=== PATIENT | male | born 1945 | race Caucasian/White ===

== ENCOUNTER 2020-12-24 15:02 | Outpatient (CLI) | payer MEDICARE, SELFPAY ==
--- NOTE | ~2020-12-24 | CT_ITS ---
EXAMINATION:CT lung screening DATE: 12/24/2020 15:18 INDICATION: Personal history of tobacco dependence. TECHNIQUE: Computed tomography (CT) of the chest was performed without intravenous contrast. Automate d exposure control and iterative reconstruction technique were employed. The dose-length product (DLP ) was 148.53 mGy-cm. COMPARISON: Chest CT 04/30/2018 FINDINGS: There is moderate emphysema. There is mild atelectasis and scarring bilaterally. Calcified right lung nodules are consistent with old granulomatous disease. There are multiple stable nodules i n the lungs bilaterally measuring up to 9 mm at the minor fissure. No pleural effusion. The heart siz e is normal. There are coronary artery calcifications. There are calcifications of aortic valve. No p ericardial effusion. Partially visualized is a 10.2 cm cyst in left kidney. Calcifications in the spl een are consistent with old granulomatous disease. There is mild chronic height loss of multiple vert ebral bodies. There is moderate thoracic spondylosis. IMPRESSION: 1. Lung-RADS category 2: Benign appearance or behavior. Continue annual screening with noncontrast lo w-dose chest CT in 12 months. Reviewed, dictated and finalized at location A. IMPRESSION: 1. Lung-RADS category 2: Benign appearance or behavior. Continue annual screeni ng with noncontrast low-dose chest CT in 12 months.
== END 2020-12-24 15:03 | disposition home or self-care (01) ==
LOC: ANHIMG 15:07
PROVIDERS: PCP Internal Medicine; Visit Provider Internal Medicine
DX: Z12.2 Encounter for screening for malignant neoplasm of respiratory organs (principal); Z87.891 Personal history of nicotine dependence
CPT/HCPCS: 71271

== ENCOUNTER 2021-01-14 12:15 | Outpatient (CLI) | payer MEDICARE, SELFPAY ==
--- NOTE | ~2021-01-14 | XR_ITS ---
EXAMINATION: XR hand LT min 3V DATE: 01/14/2021 12:31 INDICATION: Pain at the left second metacarpophalangeal joint TECHNIQUE: Posteroanterior, oblique and lateral views of the left hand were obtained. COMPARISON: None. FINDINGS: Alignment is normal. No fracture. Severe osteoarthritis at the first carpometacarpal joint with likel y degenerative subarticular cystic change at the base of the first metacarpal. There is additional se sofia osteoarthritis at the second metacarpophalangeal joint and moderate osteoarthritis of the first and third metacarpophalangeal, triscaphe and fifth distal interphalangeal joints. Mild osteoarthritis at the wrist, midcarpal and remaining carpal phalangeal and interphalangeal joints. There are juxta articular erosions with thin sclerotic margins and overhanging cortical edges at the radial and dorsa l aspects of the head of the third metacarpal, at the radial aspect of the head of the second metacar pal and at the radial aspect of the lunate with appearance suspicious for gout or other crystalline d eposition disease. Additional lucency suspicious for erosions at the ulnar side of the lunate, the ba se of the third proximal phalanx and at the radial aspect of the base of the second middle phalanx. IMPRESSION: 1. 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 2. Multiple predominantly juxta-articular lucencies as detailed above. The distribution and appearanc e particularly at the head of the third metacarpal are most suspicious for gout although differential would include calcium pyrophosphate deposition (CPPD) disease. Reviewed, dictated and finalized at location B. IMPRESSION: 1. 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 2. Multiple predominantly juxta-articular lucencies as detailed above. The dist ribution and appearance particularly at the head of the third metacarpal are mo st suspicious for gout although differential would include calcium pyrophosphat e deposition (CPPD) disease.
== END 2021-01-14 12:16 | disposition home or self-care (01) ==
LOC: ANHIMG 12:17
PROVIDERS: PCP Internal Medicine; Visit Provider Plastic Surgery
DX: M19.042 Primary osteoarthritis, left hand (principal); M18.12 Unilateral primary osteoarthritis of first carpometacarpal joint, left hand; M19.032 Primary osteoarthritis, left wrist
CPT/HCPCS: 73130

== ENCOUNTER 2024-08-08 18:53 | Inpatient (IN) | payer MEDICARE, SELFPAY ==
[2024-08-08] VITALS (9 sets, daily range): BP systolic 138–165; BP diastolic 64–71; PULSE 80–105; RESP 15–19; TEMP 36.5; O2SAT 99–100
--- NOTE | ~2024-08-08 | CT_ITS ---
Clinical Indication: Evaluate for thoracic or abdominal mass, severe anemia CT Scan of the Chest, Abdomen, and Pelvis with Contrast: Technique: Contiguous sections were acquired throughout the chest, abdomen, and pelvis after intraven ous administration of 100 cc of Omnipaque 350. Dose reduction technique was used on this scan by uti lizing automated exposure control and iterative reconstruction technique. The dose-length product (DL P) was 1188.24 mGy-cm. Comparison: 12/24/2020 Findings: Enlarged inferior left axillary lymph nodes present, measuring 2.6 x 1.3 cm (axial image 45). No othe r gross axillary, mediastinal, or hilar lymphadenopathy. Mediastinal soft tissues are unremarkable, a side from coronary artery calcifications. No aortic aneurysm. There is no evidence of pleural or pericardial effusion. Stable biapical scarring. Stable calcified right upper lobe granuloma. Stable 6 mm left basilar pulmo nary nodule (axial image 118). Mild to moderate emphysema present.. The liver, spleen, pancreas, and adrenal glands are within normal limits. Calcified gallstones are pr esent. Small bilateral nonobstructing renal stones measure up to 2 mm. Large left renal cyst present. There are atherosclerotic calcifications of the aorta. No lymphadenopathy. No bowel obstruction or bowel wall thickening. There is no evidence to suggest acute appendicitis. Urinary bladder is unremarkable. No pelvic mass seen. No ascites. There is mild chronic loss of heigh t of multiple thoracic vertebral bodies, including by T7, T8, T9, and T10. Impression: Single enlarged left axillary lymph node, indeterminate. Consider PET/CT or tissue sampling to furthe r evaluate versus follow-up. Stable 6 mm left basilar pulmonary nodule. Stability since 2000 is compatible with benign nodule. Cholelithiasis. Small bilateral nonobstructing renal stones. Chronic mild thoracic spine compression deformities, as above. Reviewed, dictated and finalized at location . Impression: Single enlarged left axillary lymph node, indeterminate. Consider PET/CT or tis gail sampling to further evaluate versus follow-up. Stable 6 mm left basilar pulmonary nodule. Stability since 2000 is compatible w ith benign nodule. Cholelithiasis. Small bilateral nonobstructing renal stones. Chronic mild thoracic spine compression deformities, as above.
--- NOTE | ~2024-08-08 | XR_ITS ---
CHEST RADIOGRAPH CLINICAL HISTORY: weakness . COMPARISON: None available TECHNIQUE: Single portable view of the chest. FINDINGS The cardiomediastinal silhouette is unremarkable. Coarse interstitial lung markings with a chronic appearance. The remainder the lungs are clear. IMPRESSION: Coarse interstitial change, without focal infiltrate or effusion. Reviewed, dictated and finalized at location A.
--- NOTE | ~2024-08-08 | US_ITS ---
EXAMINATION: US bx lymph node DATE: 08/10/2024 15:12 INDICATION: Enlarged left axillary lymph node TECHNIQUE: The procedure including the risks and benefits was discussed with the patient. Risks discu ssed included bleeding and infection. The patient understood the risks and agreed to proceed. The sk in overlying the left axilla was prepped and draped in usual sterile fashion. Anesthetic was adminis tered with 1% lidocaine subcutaneously. An routine gauge core biopsy needle was advanced under albina nuous ultrasound observation to the lymph node of interest. 5 core biopsy specimens were obtained, 3 placed in RPMI media and 2 in formalin. The needle was removed and the entry site was cleaned and d ressed. Post procedure ultrasound demonstrated no hemorrhage. FINDINGS: Ultrasound images demonstrate biopsy needles advanced into the 2.8 x 1.0 x 1.9 cm left axil constantino lymph node of concern. IMPRESSION: 1. Successful Ultrasound-guided biopsy of a 2.8 x 1.0 x 1.9 cm left axillary lymph node Reviewed, dictated and finalized at location A. IMPRESSION: 1. Successful Ultrasound-guided biopsy of a 2.8 x 1.0 x 1.9 cm left axillary ly mph node
--- NOTE | ~2024-08-08 | CT_ITS ---
CT soft tissue neck w con. Ordering provider: Haylee Dave History: 79 years gentleman presents with a three-day history of bilateral neck pain with difficulty moving it from side to side and up and down. Describes some difficulty swallowing but is currently ma intaining his secretions Comparison: None. Technique: CT soft tissues neck was performed with contrast. . The dose-length product was 528.53 mGy -cm. Findings: LOWER HEAD: The visualized brain parenchyma, optic globes/orbits and mastoids are unremarkable. The visualized paranasal sinuses are well aerated. SALIVARY GLANDS: Symmetric THYROID: Unremarkable SUPRAHYOID DEEP SPACES: Unremarkable. CAROTID ARTERIES: Trace calcified atherosclerotic disease JUGULAR VEINS: Patent. TONSILS: Not enlarged. ORAL CAVITY: Dental appliance.. PHARYNX, LARYNX AND TRACHEA: Patent. No prevertebral soft tissue swelling. SUPERFICIAL SOFT TISSUES: Scattered nonpathologically enlarged or morphologically suspicious lymph no janet within the bilateral cervical chains and supraclavicular region. THORACIC INLET/VISUALIZED UPPER CHEST: Unremarkable SKELETAL: Age appropriate degenerative changes with osteophyte formation, disc space narrowing, facet arthropathy. Heterogeneous appearance of the bone marrow is identified for which a systemic process is suspected. IMPRESSION: No acute findings within the lower head and neck, as detailed above. Reviewed, dictated and finalized at location A.
--- NOTE | 2024-08-08 19:18 | ECG_ITS ---
Test Date: 2024-08-08 20:01:33 Measurements Intervals [place] Rate: 87 P: 252 GA: 126 QRS: -28 QRSD: 114 T: 74 QT: 383 QTc: 462 Interpretive Statements SINUS RHYTHM WITH OCCASIONAL SUPRAVENTRICULAR PREMATURE COMPLEXES No previous ECG available for comparison Electronically Signed On 08-09-2024 16:45:51 CDT by Maged Ray M.D.
--- NOTE | 2024-08-08 19:20 | ED_ITS ---
HPI - Neck Pain/Injury General Chief Complaint: Neck Pain/Injury <Haylee Dave APRN - Last Filed: 08/08/24 19:29> Stated Complaint: neck pain x 3 days <Haylee Dave APRN - Last Filed: 08/08/24 19:29> Time Seen by Provider: 08/08/24 19:10 <Haylee Dave APRN - Last Filed: 08/08/24 19:29> Focused HPI: Patient is a 79-year-old male who presents to the ER with bilateral neck pain that started on Thursday night. He reports his neck is so tight he is having difficulty moving it from side to side and up and down. Patient reports his only history is hypothyroidism for which he takes Synthroid 137 mcg daily. He denies any fevers, signs/symptoms of infection, jaw pain, or headache. Patient does endorse some difficulty with swallowing, but is maintaining his oral secretions and airway. GENERAL: Well-appearing, well-nourished, and in mild distress d/t pain. HEAD: Normocephalic, atraumatic, palpable cervical, submental, and submandibular lymph nodes CHEST: Clear to auscultation. ?No respiratory distress. HEART: Tachycardia, regular rhythm NEURO: ?Alert and oriented x3. Patient screened in triage and initial orders placed.? ?Additional care and disposition to be based upon?diagnostic testing and treatment. <Haylee Dave APRN - Last Filed: 08/08/24 19:29> History of Present Illness HPI Narrative: Patient is a 79-year-old gentleman who presents emergency department chief complaint of neck pain the patient reports that his neck feels tight reports that he also has noticed that he does feels weak. The patient denies chest pain denies shortness of breath denies blood in his stool denies black tarry stool reports he is on the blood thinners <Emile Bonilla MD - Last Filed: 08/09/24 00:41> Related Data Home Medications: Home Medications ?Medication ?Instructions ?Recorded ?Confirmed ?Last Taken ?Type aspirin 81 mg tablet,delayed 81 mg PO DAILY 04/08/19 07/27/24 Unknown History release (Adult Low Dose Aspirin) <Haylee Dave APRN - Last Filed: 08/08/24 19:29> Allergies/Adverse Reactions: Allergies Allergy/AdvReac Type Severity Reaction Status Date / Time Ocotnga-QKP-RfV Reductase AdvReac Intermediate Nausea Verified 07/27/24 11:08 Inhibitor (Lxasfph-Lns-Ebs Reductase Inhibitor) <Haylee Dave APRN - Last Filed: 08/08/24 19:29> Review of Systems 2 Review of Systems: A 10 system review of systems was completed on the patient and is negative except for what is stated in the HPI. Nursing and ancillary documentation was reviewed. <Emile Bonilla MD - Last Filed: 08/09/24 00:41> [facility] Past Medical History Medical History: Medical History BMI 27.0-27.9,adult Hypertension entered incorrectly <Haylee Dave APRN - Last Filed: 08/08/24 19:29> Surgical History Surgical History: Surgical History Status post fusion of wrist <Haylee Dave APRN - Last Filed: 08/08/24 19:29> Family History Family History: Family History Father Cerebrovascular accident Sibling Family history of diabetes mellitus in first degree relative Patient's brother is Mother No problems noted. Other Family history of arthritis <Haylee Dave APRN - Last Filed: 08/08/24 19:29> Social History Social History: Social History Smoking packs per day: 0.3 Smoking cigarettes per day: 6.0 Years smoked: 50 Smoking pack-years: 15.00 Smoking status: Former smoker Tobacco type: cigarettes Second hand tobacco smoke exposure: Yes Alcohol intake: former Alcohol use details: Social Substance use: never Substance use type: does not use Do You Feel Safe in your Home?: Yes Lack of Transportation: No Lack of Food: Never True Current Housing: I Have Housing Concerned About Future Housing: No Difficulty Paying Gas/Electric Bills: No Difficulty Paying for Meds: No Currently Unemployed: No Education: High School Diploma/GED Difficulty w/ Childcare or Family Care: No Living arrangements: alone Occupation/Education: retired Additional occupation/education comments: [employer] Gender identity (if verbalized by the patient): Male <Haylee Dave APRN - Last Filed: 08/08/24 19:29> Exam 2 Narrative: GENERAL: Well-appearing, well-nourished, and in no acute distress. HEAD: Normocephalic, atraumatic. EYES: PERRLA and EOMI. ENT: Nares clear, no rhinorrhea or epistaxis. Mucous membranes moist. NECK: Supple. CHEST: Clear to auscultation. No respiratory distress. HEART: Regular rate and rhythm. No murmur heard. Normal peripheral pulses. ABDOMEN: Soft, nontender, nondistended, normal active bowel sounds. : Guaiac-positive stool EXTREMITIES: Normal range of motion. No edema. SKIN: Warm, dry, no rash. NEURO: No focal deficits. Alert and oriented x3. PSYCH: Normal mood and affect. <Emile Bonilla MD - Last Filed: 08/09/24 00:41> Course Vital Signs Vital signs: Vital Signs Temperature 36.5 C 08/08/24 19:09 Pulse Rate 105 H 08/08/24 19:09 Respiratory Rate 18 08/08/24 19:09 Blood Pressure 138/69 08/08/24 19:09 Pulse Oximetry 100 08/08/24 19:09 Oxygen Delivery Room Air 08/08/24 19:09 Temperature 36.5 C 08/08/24 19:09 Pulse Rate 84 08/08/24 23:19 Respiratory Rate 19 08/08/24 23:19 Blood Pressure 153/71 H 08/08/24 23:19 Pulse Oximetry 100 08/08/24 23:19 Oxygen Delivery Room Air 08/08/24 19:09 <Haylee Dave APRN - Last Filed: 08/08/24 19:29> Vital Signs Temperature 36.5 C 08/08/24 19:09 Pulse Rate 105 H 08/08/24 19:09 Respiratory Rate 18 08/08/24 19:09 Blood Pressure 138/69 08/08/24 19:09 Pulse Oximetry 100 08/08/24 19:09 Oxygen Delivery Room Air 08/08/24 19:09 Temperature 36.5 C 08/08/24 19:09 Pulse Rate 84 08/08/24 23:19 Respiratory Rate 19 08/08/24 23:19 Blood Pressure 153/71 H 08/08/24 23:19 Pulse Oximetry 100 08/08/24 23:19 Oxygen Delivery Room Air 08/08/24 19:09 <Emile Bonilla MD - Last Filed: 08/09/24 00:41> MDM - Neck Pain/Injury Lab Data Result diagrams: 08/08/24 20:12 08/08/24 20:12 <Haylee Dave APRN - Last Filed: 08/08/24 19:29> Labs: Lab Results 08/08/24 08/08/24 Range/Units 20:12 21:36 WBC 11.6 H (4.5-10.0) K/mm3 RBC 3.16 L (4.6-6.20) M/mm3 Hgb 5.9 L* (14.0-18.0) g/dL Hct 21.3 L (42.0-52.0) % MCV 67.4 L (80-100) fl MCH 18.7 L (26-34) pg MCHC 27.7 L (32-36) g/dl RDW 18.4 H (11.5-14.5) % Plt Count 480 H (150-375) k/mm3 MPV 8.7 (7.4-10.4) fl Immature Gran % (Auto) 0.4 (0-0.5) % Neut % (Auto) 80.2 H (45.5-73.1) % Lymph % (Auto) 7.4 L (18.3-44.2) % [place] % (Auto) 11.7 H (2.6-8.5) % Eos % (Auto) 0.0 (0-4.4) % Baso % (Auto) 0.3 (0.2-1.2) % Lymph # (Auto) 0.86 L (0.9-3.2) K/mm3 [place] # (Auto) 1.4 H (0.1-0.6) K/mm3 Eos # (Auto) 0.0 (0-0.3) K/mm3 Baso # (Auto) 0.0 (0.0-0.1) K/mm3 Abs Immat Gran (auto) 0.05 H (0.00-0.031) K/mm3 Absolute Neuts (auto) 9.3 H (1.3-6.7) K/mm3 Absolute Nucleated RBC 0.000 (0.0-0.012) K/mm3 Band Neutrophils % Not Reportable Nucleated RBC % 0.0 (0.0-0.2) % Platelet Estimate Increased (Adequate) Large Platelets Present Hypochromasia 2+ Poikilocytosis 1+ Anisocytosis 2+ Microcytosis 2+ (NORMAL) Target Cells 1+ Ovalocytes 1+ Schistocytes None seen Sodium 133 L (137-145) mmol/L Potassium 3.9 (3.4-5.0) mmol/L Chloride 100 (98-107) mmol/L Carbon Dioxide 22 (22-30) mmol/L Anion Gap 11 (4-12) mmol/L BUN 11 (9-20) mg/dL Creatinine 0.98 (0.7-1.3) mg/dL Estim Creat Clear Calc Not Reportable Estimated GFR > 60 (59 - ) Glucose 128 H (65-110) mg/dL Calcium 9.0 (8.4-10.2) mg/dL Total Bilirubin 0.5 (0.2-1.3) mg/dL AST 20 (17-59) U/L ALT 9 (6-50) U/L Alkaline Phosphatase 115 (38-126) U/L Troponin I < 0.012 (0.000-0.034) ng/mL Total Protein 8.0 (6.3-8.2) g/dL Albumin 4.2 (3.5-5.1) g/dL TSH (Reflex) 0.232 L (0.465-4.68) uIU/mL Free T4 2.12 (0.78-2.19) ng/dL Total T3 0.82 L (0.97-1.69) NG/ML Blood Type O Positive Antibody Screen Negative <Haylee Dave, WOOD CARVING LATHE OPERATOR - Last Filed: 08/08/24 19:29> Lab Results 08/08/24 08/08/24 Range/Units 20:12 21:36 WBC 11.6 H (4.5-10.0) K/mm3 RBC 3.16 L (4.6-6.20) M/mm3 Hgb 5.9 L* (14.0-18.0) g/dL Hct 21.3 L (42.0-52.0) % MCV 67.4 L (80-100) fl MCH 18.7 L (26-34) pg MCHC 27.7 L (32-36) g/dl RDW 18.4 H (11.5-14.5) % Plt Count 480 H (150-375) k/mm3 MPV 8.7 (7.4-10.4) fl Immature Gran % (Auto) 0.4 (0-0.5) % Neut % (Auto) 80.2 H (45.5-73.1) % Lymph % (Auto) 7.4 L (18.3-44.2) % [place] % (Auto) 11.7 H (2.6-8.5) % Eos % (Auto) 0.0 (0-4.4) % Baso % (Auto) 0.3 (0.2-1.2) % Lymph # (Auto) 0.86 L (0.9-3.2) K/mm3 [place] # (Auto) 1.4 H (0.1-0.6) K/mm3 Eos # (Auto) 0.0 (0-0.3) K/mm3 Baso # (Auto) 0.0 (0.0-0.1) K/mm3 Abs Immat Gran (auto) 0.05 H (0.00-0.031) K/mm3 Absolute Neuts (auto) 9.3 H (1.3-6.7) K/mm3 Absolute Nucleated RBC 0.000 (0.0-0.012) K/mm3 Band Neutrophils % Not Reportable Nucleated RBC % 0.0 (0.0-0.2) % Platelet Estimate Increased (Adequate) Large Platelets Present Hypochromasia 2+ Poikilocytosis 1+ Anisocytosis 2+ Microcytosis 2+ (NORMAL) Target Cells 1+ Ovalocytes 1+ Schistocytes None seen Sodium 133 L (137-145) mmol/L Potassium 3.9 (3.4-5.0) mmol/L Chloride 100 (98-107) mmol/L Carbon Dioxide 22 (22-30) mmol/L Anion Gap 11 (4-12) mmol/L BUN 11 (9-20) mg/dL Creatinine 0.98 (0.7-1.3) mg/dL Estim Creat Clear Calc Not Reportable Estimated GFR > 60 (59 - ) Glucose 128 H (65-110) mg/dL Calcium 9.0 (8.4-10.2) mg/dL Total Bilirubin 0.5 (0.2-1.3) mg/dL AST 20 (17-59) U/L ALT 9 (6-50) U/L Alkaline Phosphatase 115 (38-126) U/L Troponin I < 0.012 (0.000-0.034) ng/mL Total Protein 8.0 (6.3-8.2) g/dL Albumin 4.2 (3.5-5.1) g/dL TSH (Reflex) 0.232 L (0.465-4.68) uIU/mL Free T4 2.12 (0.78-2.19) ng/dL Total T3 0.82 L (0.97-1.69) NG/ML Blood Type O Positive Antibody Screen Negative <Emile Bonilla MD - Last Filed: 08/09/24 00:41> Discharge Plan Discharge Clinical Impression: Anemia <Haylee Dave APRN - Last Filed: 08/08/24 19:29> Patient Disposition: Still a Patient <Haylee Dave APRN - Last Filed: 08/08/24 19:29> Condition: Stable <Haylee Dave APRN - Last Filed: 08/08/24 19:29> Patient Language: Jordanian <Haylee Dave APRN - Last Filed: 08/08/24 19:29> Prescriptions: No Action levothyroxine [Synthroid] 137 mcg tablet 137 mcg PO DAILY Qty: 90 2RF aspirin [Adult Low Dose Aspirin] 81 mg tablet,delayed release (DR/EC) 81 mg PO DAILY <Haylee Dave APRN - Last Filed: 08/08/24 19:29> Follow-up/Referrals: Willi Wyatt DO [Primary Care Provider] - <Haylee Dave APRN - Last Filed: 08/08/24 19:29> Time of Disposition: 00:41 <Haylee Dave APRN - Last Filed: 08/08/24 19:29> 00:41 <Emile Bonilla MD - Last Filed: 08/09/24 00:41>
--- OUTSIDE RECORDS SUMMARY | 2024-08-08 19:20 | XMS_ITS | Clinical Summary ---
Author Organization [facility] Address [address] [place] [address] Care Team Providers Care Planer Feeder Name Role Phone Unavailable Primary Care Provider Unavailabl e Source Comments [facility],non-owned Affiliates and Associated Physician Practices is amultiple site organization consisting of ambulatory clinics and hospital sitesin [place], [place], [place] and [place]. This disclosure is being madepursuant to the Care Everywhere program and may not contain all information available regarding this patient. Last updated 18.[facility] Social History Tobacco Use Types Packs/Day Years Used Date Smoking Tobacco: Never Assessed Sex and Gender Information Value Date Recorded Sex Assigned at Not on file Gender Identity Not on file Sexual Orientation Not on file Plan of Treatment Health Maintenance Due Date Last Done Comments DTAP/TDAP/TD VACCINES (1 - Tdap) 02/11/1964 PNEUMOCOCCAL VACCINE 50+ (1 of 1 - PCV) 1995 ZOSTER VACCINE (1 of 2) 1995 Respiratory Syncytial Virus (RSV) Vaccine Pt: or over 60 yrs (1 - 1-dose 75+ series) 02/11/2020 COVID-19 VACCINE ( - 2023-2 5 season) 2024 INFLUENZA VACCINE (#1) 2024 DEPRESSION SCREENING 05/25/2024 HEPATITIS B VACCINE Aged Out No longe r eligible based on patient's age to complete this topic HIB VACCINE Aged Out No longer eligi ble based on patient's age to complete this topic HPV VACCINE Aged Out No longer eligi ble based on patient's age to complete this topic MENINGOCOCCAL (Group B) VACC INE SHARED DECISION-MAKING Aged Out No longer eligibl e based on patient's age to complete this topic MENINGOCOCCAL GROUPS A/C/Y/W VACCINE Aged Out No longer eligible b ased on patient's age to complete this topic
--- OUTSIDE RECORDS SUMMARY | 2024-08-08 19:20 | XMS_ITS | Patient Health Summary ---
Author Organization [facility] Address [address] [place] [address] Care Team Providers Care Aviation Survival Technician Name Role Phone Unavailable Primary Care Provider Unavailabl e Note from [facility],non-owned Affiliates and Associated Physician Practices is amultiple site organization consisting of ambulatory clinics and hospital sitesin [place], [place], [place] and [place]. This disclosure is being madepursuant to the Care Everywhere program and may not contain all information available regarding this patient. Last updated 18.[facility] Social History Tobacco Use Types Packs/Day Years Used Date Smoking Tobacco: Never Assessed Sex and Gender Information Value Date Recorded Sex Assigned at Not on file Gender Identity Not on file Sexual Orientation Not on file Procedures * GROSS + MICRO EXAM(Performed 09/14/1998) Results * GROSS + MICRO EXAM (09/14/1998 3:59 PM CDT) Result CASE NUMBER [id number] Comment: ORDERING PHYSICIAN JONES CHRIS SPECIMEN TYPE Colon Biopsy-ascending Date 09/14/1998 Physician Nazanin Gross Description The specimen is received in 3 formalin-filled containers, each labeled with the patient's name. The first one is additionally labeled sigmoid polyp . It consists of 2, barboza-white, rubbery, irregularly- shaped tissue fragments each of which measures 0.2 x 0.2 x 0.2 cm. The specimen is wrapped in tissue paper and submitted in its entirety in cassette A. The second container is additionally labeled ascending polyp . It consists of 2, barboza-white, rubbery, irregularly-shaped tissue fragments each of which measures 0.2 x 0.2 x 0.2 cm. The specimen is wrapped in tissue paper and submitted in its entirety in cassette B. The third container is additionally labeled rectal polyp . It consists of 2, barboza-white, rubbery, irregularly-shaped tissue fragments each of which measures 0.2 x 0.2 x 0.2 cm. The specimen is wrapped in tissue paper and submitted in its entirety in cassette C. GJ/ lmj Microscopic Exam Sections labeled A reveals a hyperplastic polyp with sawtoothed shaped glands lined by talll columnar mucinous epithelium. There is no evidence of malignancy. Sections labeled B reveals colonic mucosa with adenomatous polyp formation. There are glands that are enlarged, irregular in contour and exhibit nuclear enlargement, stratification, mucin depletion. There is no evidence of malignancy present. Sections labeled C reveals hyperplastic polyp formation. Diagnosis I. Sigmoid colon, biopsy A. Hyperplastic polyp II. Ascending colon, biopsy A. Adenomatous polyp III. Rectum, biopsy A. Hyperplastic polyp Chemical Treatment Plant Technician [facility] [place] Christine Morgan M.D. Snomed. 09/15/1998 1115 <3> CPT code 50510/04226 x3 MISCELLANEOUS SAMPLES / Unknown 09/14/1998 3:59 PM CDT 09/14/1998 3:59 PM CDT Historical Provider LAB - PATHOLOGY/C YTOLOGY ORDERABLES
--- OUTSIDE RECORDS SUMMARY | 2024-08-08 19:20 | XMS_ITS | CONTINUITY OF CARE DOCUMENT ---
Author Name darci bejarano Address Unknown Organization [facility] Address [address] [place] [address] Phone [phone] Care Team Providers Care Labor Contractor Name Role Phone darci bejarano Unavailable Unavailable
--- OUTSIDE RECORDS SUMMARY | 2024-08-08 19:20 | XMS_ITS | Referral Summary ---
Author Organization [facility] Address [address] [place] [address] Care Team Providers Care Forming Process Worker Name Role Phone Unavailable Primary Care Provider Unavailabl e Source Comments [facility],non-owned Affiliates and Associated Physician Practices is amultiple site organization consisting of ambulatory clinics and hospital sitesin [place], [place], [place] and [place]. This disclosure is being madepursuant to the Care Everywhere program and may not contain all information available regarding this patient. Last updated 18.[facility] [employer] Social History Tobacco Use Types Packs/Day Years Used Date Smoking Tobacco: Never Assessed Sex and Gender Information Value Date Recorded Sex Assigned at Not on file Gender Identity Not on file Sexual Orientation Not on file Plan of Treatment Not on file
--- NOTE | 2024-08-08 19:51 | PC.NURSE ---
Pt states he last took tylenol around 1400 today.
[2024-08-08] MEDS: KETOROLAC 30 MG/ML VIAL (*BKC) IM (19:55)
[2024-08-08 20:25] LABS: Basophils Percent Auto 0.3 % (0.2-1.2); Hematocrit 21.3 % (42.0-52.0); Immature Granulocyte Absolute 0.05 K/mm3 (0.00-0.031); Immature Granulocyte Percent A 0.4 % (0-0.5); Lymphocytes Absolute Auto 0.86 K/mm3 (0.9-3.2); Lymphocytes Percent Auto 7.4 % (18.3-44.2); Mean Corpuscular HGB Conc 27.7 g/dl (32-36); Mean Corpuscular Hemoglobin 18.7 pg (26-34); Mean Corpuscular Volume 67.4 fl (80-100); Mean Platelet Volume 8.7 fl (7.4-10.4); Monocytes Absolute Auto 1.4 K/mm3 (0.1-0.6); Monocytes Percent Auto 11.7 % (2.6-8.5); Neutrophils Absolute Auto 9.3 K/mm3 (1.3-6.7); Neutrophils Percent Auto 80.2 % (45.5-73.1); Platelet Count Result 480 k/mm3 (150-375); Red Blood Count 3.16 M/mm3 (4.6-6.20); Red Cell Distribution Width 18.4 % (11.5-14.5); White Blood Count 11.6 K/mm3 (4.5-10.0)
[2024-08-08 20:35] LABS: Hemoglobin 5.9 g/dL (14.0-18.0)
[2024-08-08 20:42] LABS: Alanine Aminotransferase 9 U/L (6-50); Albumin Level 4.2 g/dL (3.5-5.1); Alkaline Phosphatase 115 U/L (38-126); Anion Gap 11 mmol/L (4-12); Aspartate Amino Transferase 20 U/L (17-59); Bilirubin,Total 0.5 mg/dL (0.2-1.3); Blood Urea Nitrogen 11 mg/dL (9-20); Carbon Dioxide 22 mmol/L (22-30); Chloride 100 mmol/L (98-107); Estimated Glomerular Filt Rate > 60; Glucose 128 mg/dL (65-110); Potassium 3.9 mmol/L (3.4-5.0); Sodium 133 mmol/L (137-145)
[2024-08-08 20:49] LABS: Anisocytosis 2+; Hypochromasia 2+; Large Platelets Present; Microcytosis 2+ (NORMAL); Ovalocytes 1+; Platelet Estimate Increased (Adequate); Poikilocytosis 1+; Schistocytes None Seen; Target Cells 1+
[2024-08-08 21:07] LABS: Thyroid Stimulating Hormone Reflex 0.232 uIU/mL (0.465-4.68)
--- OUTSIDE RECORDS SUMMARY | 2024-08-08 21:29 | XMS_ITS | CONTINUITY OF CARE DOCUMENT ---
Author Name darci bejarano Address Unknown Organization [facility] Address [address] [place] [address] Phone [phone] Care Team Providers Care Belt Cleaner Name Role Phone darci bejarano Unavailable Unavailable
--- OUTSIDE RECORDS SUMMARY | 2024-08-08 21:29 | XMS_ITS | Referral Summary ---
Author Organization [facility] Address [address] [place] [address] Care Team Providers Care Cane Packer Name Role Phone Unavailable Primary Care Provider Unavailabl e Source Comments [facility],non-owned Affiliates and Associated Physician Practices is amultiple site organization consisting of ambulatory clinics and hospital sitesin [place], [place], [place] and [place]. This disclosure is being madepursuant to the Care Everywhere program and may not contain all information available regarding this patient. Last updated 18.[facility] [employer] Social History Tobacco Use Types Packs/Day Years Used Date Smoking Tobacco: Never Assessed Sex and Gender Information Value Date Recorded Sex Assigned at Not on file Gender Identity Not on file Sexual Orientation Not on file Plan of Treatment Not on file
--- OUTSIDE RECORDS SUMMARY | 2024-08-08 21:29 | XMS_ITS | Patient Health Summary ---
Author Organization [facility] [email or web address] Address [address] [place] [address] Care Team Providers Care Fast Food Crew Lead Name Role Phone Unavailable Primary Care Provider Unavailabl e Note from [facility] [email or web address],non-owned Affiliates and Associated Physician Practices is amultiple site organization consisting of ambulatory clinics and hospital sitesin [place], [place], [place] and [place]. This disclosure is being madepursuant to the Care Everywhere program and may not contain all information available regarding this patient. Last updated 18.[facility] [email or web address] Social History Tobacco Use Types Packs/Day Years [...] polyp III. Rectum, biopsy A. Hyperplastic polyp Install Technician [facility] [place] Pathologist Christine Morgan M.D. Snomed. 09/15/1998 1115 <3> CPT code 99035/88978 x3 MISCELLANEOUS SAMPLES / Unknown 09/14/1998 3:59 PM CDT 09/14/1998 3:59 PM CDT Historical Provider LAB - PATHOLOGY/C YTOLOGY ORDERABLES
--- OUTSIDE RECORDS SUMMARY | 2024-08-08 21:29 | XMS_ITS | Clinical Summary ---
Author Organization [facility] [employer] Address [address] [place] [address] Care Team Providers Care Boxing And Pressing Supervisor Name Role Phone Unavailable Primary Care Provider Unavailabl e Source Comments [facility],non-owned Affiliates and Associated Physician Practices is amultiple site organization consisting of ambulatory clinics and hospital sitesin [place], [place], [place] and [place]. This disclosure is being madepursuant to the Care Everywhere program and may not contain all information available regarding this patient. Last updated 18.[facility] [employer] Social History Tobacco Use Types Packs/Day Years [...]
[2024-08-08 21:44] LABS: Free T4 Free Thyroxine Reflex 2.12 ng/dL (0.78-2.19)
[2024-08-08 22:26] LABS: Troponin I < 0.012 ng/mL (0.000-0.034)
[2024-08-08 22:37] LABS: Total Triiodothyronine (T3) 0.82 NG/ML (0.97-1.69)
[2024-08-09] VITALS (18 sets, daily range): BP systolic 145–182; BP diastolic 56–72; PULSE 73–97; RESP 11–22; TEMP 36.6–37.3; O2SAT 97–100; BMI 25.8
[2024-08-09] MEDS: SODIUM CHLORIDE 0.9% IV 1,000 ML 125 ML IV CONT (01:09)
[2024-08-09] MEDS: PANTOPRAZOLE SODIUM IV 40 MG VIAL IV PUSH ×2 (01:10→09:28)
[2024-08-09] MEDS: SODIUM CHLORIDE 0.9% IV 250 ML 30 ML IV CONT (02:17)
[2024-08-09] MEDS: TUBING, BLOOD SET 1 EACH XX ×2 (02:17→04:10)
[2024-08-09 03:41] LABS: Add Urine Microscopic? YES; Appearance Urine Clear (Clear); Bacteria Urine None Seen /hpf; Bilirubin Urine Negative (Negative); Blood Urine Negative (Negative); Color Urine Yellow (Yellow); Glucose Urine UA Negative (Negative); Ketones Urine 1+ mg/dL (Negative); Leukocyte Esterase Ur Negative LEU/UL (Negative); Nitrate Urine Negative (Negative); Non Pathogenic Casts 0-2; Protein Urine Trace mg/dL (Negative); RBC Urine 0-2 /hpf (0-2); Squamous Epithelial Cell Urine None Seen /hpf (Few); Urobilinogen Urine 0.2 mg/dL (<2.0); WBC Urine 0-5 /hpf (0-3)
[2024-08-09] MEDS: SODIUM CHLORIDE 0.9% IV 250 ML (04:10)
[2024-08-09 05:05] LABS: Ferritin 6.79 ng/mL (11.1-264)
[2024-08-09 05:11] LABS: Iron 19 ug/dL (49-181); Percent Iron Saturation 4 % (20-50)
--- NOTE | 2024-08-09 06:41 | ADMGEN ---
This patient, Eric Pacheco, was admitted to [facility] Surg Room 322-01. Patient/family oriented to hospital policies and general routines including ID bracelet, bed and alarms, visiting hours, pain management, procedures, bathroom and other care routines, personal items, smoking policy, room service/diet, and visiting hours. Information on how to activate the Rapid Response Team has been discussed. Patient/Family are encouraged to report perceived risks to care and to ask questions if they do not understand what they are told or what they should do.
--- NOTE | 2024-08-09 09:41 | P.CONGI_ITS ---
<Statement entered by Heath Nuñez MD - 08/09/24 15:51> I, Heath Nuñez MD, have provided a substantive portion of the care of this patient and discussed the patient with my Nurse Practitioner. I have reviewed any new relevant radiographic and laboratory results including medications. I agree with her documentation as noted below.?I personally performed the medical decision making and much of the history and exam for this encounter. briefly, here with neck pain and found to have significant anemia that required blood transfusion, he had some weight loss with last colonoscopy 2010, no recent EGD. Also some report of difficulty swallowing. Initially he was reluctant about scopes but now is agreeable, will schedule for tomorrow Assessment and Plan Assessment and plan (1) JEZ (iron deficiency anemia): Qualifiers: Iron deficiency anemia type: chronic blood loss Qualified Code(s): D50.0 - Iron deficiency anemia secondary to blood loss (chronic) < Sujata Campos APRN - Last Filed: 08/09/24 16:07> Code(s): D50.9 - Iron deficiency anemia, unspecified <Sujata Campos APRN - Last Filed: 08/09/24 16:07> Status: Acute <Sujata Campos APRN - Last Filed: 08/09/24 16:07> (2) Weight loss: Code(s): R63.4 - Abnormal weight loss <Sujata Campos APRN - Last Filed: 08/09/24 16:07> Status: Acute <Sujata Campos APRN - Last Filed: 08/09/24 16:07> Assessment and Plan: 1. Iron deficiency anemia/weight loss: Last colonoscopy 11/04/2010 at which time he was noted to have internal and external hemorrhoids, diverticulosis and hyperplastic polyps. Family Hx negative for CRC or IBD. He admits to a few episodes of painless trace rectal bleeding after BM's between March and April but denies any other episodes. He is having regular BM's normally every 1-2 days that are formed and non urgent but he has rare episodes of constipation that responds well to OTC laxative. He admits to a 10 lb weight loss since March but admits to a poor diet because it's just him and his dog . On admission Hgb <6, Hct 21, MCV 67 and platelets 480. Iron 19, TIBC 471, iron sat 4% and ferritin 6.79. He denies any signs of active GI bleeding. Assume that his blood counts have been slowly going down given that his only complaint is neck pain. Etiology of anemia may be multifactorial given normal TIBC. No recent GI imaging available * We discussed endoscopic evaluation with colonoscopy +/- EGD but patient kindly declines any further intervention at this time. He is aware that his blood counts were critically low. He has received 2 units PRBC's. Patient is aware that if his H/H does not stabilize after transfusion or if he starts having active bleeding we would have to reconsider scopes at that time. * Primary care team to continue monitoring H/H and transfuse as needed to keep Hgb > 7 * IV iron replacement * Additional anemia labs ordered along with CRP * May consider abdominal imaging if workup is inconclusive * Continue PPI * Care with NSAID's, aspirin or anticoags * monitor closely for signs of GI bleeding Thank you very much for allowing me to share in the care of this very nice patient. This report may have been done utilizing a voice recognition system. Attempts have been made to correct errors. However, there may be uncorrected grammatical, spelling, and recognition errors present. <Sujata Campos APRN - Last Filed: 08/09/24 16:07> GI Consult Note Consult date/time: 08/09/24 09:41 <Sujata Campos APRN - Last Filed: 08/09/24 16:07> Reason for consult: Anemia <Sujata Campos APRN - Last Filed: 08/09/24 16:07> HPI: This is a 79 old male with past medical surgical history of hypothyroidism but otherwise unremarkable medical surgical history. Patient presented to the emergency room 08/08/2024 with complaints of neck pain and was admitted for anemia. GI has been consulted for anemia. Patient states that he started having neck pain Tylor night. He states that he has lost 10 lbs since March. He is having regular BM's normally every 1-2 days and when he has occasional constipation he uses OTC laxatives with good response. He had a few episodes of trace rectal bleeding after BM's in March- April timeframe that has not occurred again. Denies abdominal pain, nausea, vomiting, bloating, odynophagia, dysphagia, reflux, regurgitation, early satiety, weight loss, appetite loss, diarrhea, or melena. He is on aspirin 81 mg daily, denies frequent NSAID use or anticoag use. He is a non drinker, non smoker, and denies marijuana use. Family Hx negative for CRC or IBD. ENDOSCOPY HISTORY: EGD: Patient has never had an EGD COLONOSCOPY: 11/04/[address] Back for personal Hx of colon polyps Findings: Stain ultrasound/external hemorrhoids Internal hemorrhoids Mild sigmoid diverticulosis 5-6 mm sessile hyperplastic appearing polyp in the mid to distal transverse colon removed with cold polyp forceps Bx results: Transverse colon polyp: Hyperplastic polyp LABS AND STOOL STUDIES: Labs 08/08/2024: Sodium 133, potassium 3.9, BUN 11, creatinine 0.98, GFR >60 WBC 12, Hgb 6, Hct 21, MCV 67, platelets 480 Total bilirubin 0.5, AST 20, ALT 9, Alkaline Phos 115, albumin 4.2 Total iron 19, TIBC 471, iron sat 4%, ferritin 6.79 Calcium 9.0, TSH 0.232, T4 2.12 and T3 0.82 IMAGING: CT soft tissue neck 08/08/2024: IMPRESSION: No acute findings within the lower head and neck, as detailed above. <Sujata Campos APRN - Last Filed: 08/09/24 16:07> Review of Systems 2 Constitutional: Constitutional: Reports as per HPI, Denies fatigue and Denies weakness <Sujata Campos APRN - Last Filed: 08/09/24 16:07> ENT: Reports as per HPI <Sujata Campos APRN - Last Filed: 08/09/24 16:07> Cardiovascular: Cardiovascular: Reports as per HPI, Denies chest pain and Denies dyspnea <Sujata Campos APRN - Last Filed: 08/09/24 16:07> Respiratory: Respiratory: Denies cough and Denies dyspnea <Sujatabatool Campos Last Filed: 08/09/24 16:07> Gastrointestinal: Gastrointestinal: Reports as per HPI <Sujatabatool Campos APR Last Filed: 08/09/24 16:07> Musculoskeletal: Musculoskeletal: Reports as per HPI and Reports neck pain <Sujatabatool Campos [employer] JELLY Last Filed: 08/09/24 16:07> Comments: neck pain and decrease neck ROM since Thursday <Sujatabatool Campos Last Filed: 08/09/24 16:07> Integumentary/Breasts: Skin/Breast: Reports as per HPI <Sujata Campos Last Filed: 08/09/24 16:07> Psychiatric: Psychiatric: Reports as per HPI <Sujata Campos Last Filed: 08/09/24 16:07> Endocrine: Endocrine: Reports no additional endocrine complaints <Sujata Campos APR Last Filed: 08/09/24 16:07> Hematologic/Lymphatic: Hematologic/Lymphatic: Reports no additional hematologic/lymphatic complaints <Sujatabatool Campos [employer] JELLY Last Filed: 08/09/24 16:07> PMF Past Medical History Medical History: Medical History BMI 27.0-27.9,adult Hypertension entered incorrectly <Sujatabatool Campos Last Filed: 08/09/24 16:07> Surgical History Surgical History: Surgical History Status post fusion of wrist <Sujatabatool Campos Last Filed: 08/09/24 16:07> Family History Family History: Family History Father Cerebrovascular accident Sibling Family history of diabetes mellitus in first degree relative Patient's brother is Mother No problems noted. Other Family history of arthritis <Sujata Campos APR Last Filed: 08/09/24 16:07> Social History Social History: Social History Smoking packs per day: 1 Smoking cigarettes per day: 20.0 Years smoked: 50 Smoking pack-years: 50.00 Smoking status: Former smoker Tobacco type: cigarettes Second hand tobacco smoke exposure: Yes Alcohol intake: current Alcohol use details: Social Substance use: never Substance use type: does not use Do You Feel Safe in your Home?: Yes Lack of Transportation: No Lack of Food: Never True Current Housing: I Have Housing Concerned About Future Housing: No Difficulty Paying Gas/Electric Bills: No Difficulty Paying for Meds: No Currently Unemployed: No Education: High School Diploma/GED Difficulty w/ Childcare or Family Care: No Living arrangements: alone Occupation/Education: retired Additional occupation/education comments: [employer] Gender identity (if verbalized by the patient): Male Spiritual care concerns: No <Sujata Campos APRN - Last Filed: 08/09/24 16:07> Meds Home Medications and Allergies Home medications: Home Medications ?Medication ?Instructions ?Recorded ?Confirmed ?Type aspirin 81 mg tablet,delayed 81 mg PO DAILY 04/08/19 08/09/24 History release (Adult Low Dose Aspirin) levothyroxine 137 mcg tablet 137 mcg PO DAILY #90 tabs 07/27/24 08/09/24 Rx (Synthroid) <Sujata Campos APRN - Last Filed: 08/09/24 16:07> Allergies/Adverse reactions: Allergies Allergy/AdvReac Type Severity Reaction Status Date / Time [id number] Reductase AdvReac Intermediate Nausea Verified 07/27/24 11:08 Inhibitor (Mbrovpc-Bns-Enf Reductase Inhibitor) <Sujata Campos APRN - Last Filed: 08/09/24 16:07> Vital Signs Vital Signs - 24 hr 08/08/24 19:09 08/08/24 20:51 08/08/24 21:09 Temperature 97.7 F Pulse Rate 105 H 86 82 Respiratory Rate 18 18 19 Blood Pressure 138/69 164/65 H Pulse Oximetry 100 100 99 Oxygen Delivery Room Air 08/08/24 21:10 08/08/24 21:31 08/08/24 21:56 Temperature Pulse Rate 80 84 93 Respiratory Rate 17 18 15 Blood Pressure 157/66 H 165/64 H Pulse Oximetry 100 100 100 Oxygen Delivery 08/08/24 22:01 08/08/24 22:31 08/08/24 23:19 Temperature Pulse Rate 88 82 84 Respiratory Rate 16 15 19 Blood Pressure 161/66 H 164/67 H 153/71 H Pulse Oximetry 99 100 100 Oxygen Delivery 08/09/24 01:17 08/09/24 02:08 08/09/24 02:26 Temperature 99 F 98.7 F Pulse Rate 89 92 97 Respiratory Rate 16 22 H 21 H Blood Pressure 161/70 H 158/72 H 166/69 H Pulse Oximetry 99 99 99 Oxygen Delivery 08/09/24 03:01 08/09/24 03:54 08/09/24 04:17 Temperature 98.1 F 98.9 F Pulse Rate 87 84 91 Respiratory Rate 22 H 11 L 20 Blood Pressure 166/69 H 182/72 H 182/71 H Pulse Oximetry 97 98 100 Oxygen Delivery 08/09/24 05:17 08/09/24 05:22 08/09/24 06:15 Temperature 98.6 F Pulse Rate 85 85 83 Respiratory Rate 18 22 H Blood Pressure 175/72 H 145/66 H Pulse Oximetry 100 100 Oxygen Delivery 08/09/24 06:17 08/09/24 06:19 08/09/24 09:22 Temperature 98.8 F Pulse Rate 85 91 Respiratory Rate 22 H 18 Blood Pressure 145/66 H 175/67 H Pulse Oximetry 100 100 98 Oxygen Delivery Room Air <Sujata Campos APRN - Last Filed: 08/09/24 16:07> Exam 2 Const: General: cooperative, healthy appearing, no acute distress, well developed and uncomfortable (neck pain) <Sujata Campos APRN - Last Filed: 08/09/24 16:07> Orientation/consciousness: oriented to person, oriented to place, oriented to time and patient oriented x3 <Sujata Campos APRN - Last Filed: 08/09/24 16:07> HENMT: Head: normal to inspection, normocephalic and atraumatic <Sujata Campos APRN - Last Filed: 08/09/24 16:07> Mouth: Yes Normal oral and palatal mucosa present and Yes moist mucous membranes <Sujata FongMadyson Mirastephanie [employer] JELLY - Last Filed: 08/09/24 16:07> Eyes: General: appearance normal, both eyes and all related structures < Sujata FongMadyson Mirastephanie [employer] - Last Filed: 08/09/24 16:07> Conjunctivae: conjunctivae normal <Sujata FongMadyson Mirastephanie [facility] Last Filed: 08/09/24 16:07> Sclera: sclerae normal <Sujata FongMadyson Mirastephanie [facility] Last Filed: 08/09/24 16:07> Pupils: Equal, round and reactive pupils present <Sujata FongMadyson Mirastephanie [facility] Last Filed: 08/09/24 16:07> Neck: Neck: normal visual inspection <Sujata FongMadyson Mirastephanie [facility] Last Filed: 08/09/24 16:07> Chest: Chest palpation & inspection: normal inspection of the chest < Sujata Yoshi Mirastephanie [employer] - Last Filed: 08/09/24 16:07> Resp: Effort & Inspection: normal respiratory effort and able to speak in complete sentences <Sujata FongMadyson Mirastephanie [facility] Last Filed: 08/09/24 16:07> Auscultation: clear to auscultation bilaterally <Sujata FongMadyson Mirastephanie [employer] Last Filed: 08/09/24 16:07> Cardio: Jugular venous distension: no JVD <Sujata FongMadyson Mirastephanie [facility] Last Filed: 08/09/24 16:07> Rate: regular rate <Sujata FongMadyson Mirastephanie [employer] - Last Filed: 08/09/24 16:07> Rhythm: regular rhythm <Sujata FongMadyson Mirastephanie [facility] Last Filed: 08/09/24 16:07> Heart sounds: S1 normal heart sound present and S2 normal heart sound present <Sujata Yoshi Campos [employer] - Last Filed: 08/09/24 16:07> GI: Inspection: normal to inspection <Sujata Yoshi Campos [employer] - Last Filed: 08/09/24 16:07> GI Palp: Yes Soft to palpation and Yes No hepatosplenomegaly present <Sujata Yoshi Campos [employer] - Last Filed: 08/09/24 16:07> Auscultation: normal bowel sounds <Sujata MeyersMITCH brownN - Last Filed: 08/09/24 16:07> Rectal Exam: deferred <Sujata Meyersstephanie [employer] - Last Filed: 08/09/24 16:07> Skin: General skin exam: normal color and no rashes or lesions noted < Sujata Meyersstephanie [employer] - Last Filed: 08/09/24 16:07> Neuro: General: oriented to person, oriented to place, oriented to time and patient oriented x3 <Sujata Meyersstephanie [employer] - Last Filed: 08/09/24 16:07> Cranial nerves: Yes Equal, round and reactive pupils present <Sujata Meyersstephanie [employer] - Last Filed: 08/09/24 16:07> Speech: normal speech <Sujata Meyersstephanie [employer]LLY - Last Filed: 08/09/24 16:07> Extrem: General: normal to inspection and no clubbing, cyanosis or edema < Sujata Meyersstephanie [employer] - Last Filed: 08/09/24 16:07> Psych: Appearance: grossly normal and well kempt <Sujata FongMadyson Campos APRN - Last Filed: 08/09/24 16:07> Affect: normal affect <Sujata Meyersstephanie [employer] - Last Filed: 08/09/24 16:07> Results Labs CBC & Chem 7: 08/08/24 20:12 08/08/24 20:12 <Sujata MeyersMITCH brownN - Last Filed: 08/09/24 16:07> Labs: Short CBC 08/08/24 Range/Units 20:12 WBC 11.6 H (4.5-10.0) K/mm3 Hgb 5.9 L* (14.0-18.0) g/dL Hct 21.3 L (42.0-52.0) % Plt Count 480 H (150-375) k/mm3 BMP 08/08/24 20:12 Sodium 133 L Potassium 3.9 Chloride 100 Carbon Dioxide 22 BUN 11 Creatinine 0.98 Glucose 128 H Calcium 9.0 Cardiac Enzymes 08/08/24 Range/Units 21:36 Troponin I < 0.012 (0.000-0.034) ng/mL Liver Function 08/08/24 Range/Units 20:12 Total Bilirubin 0.5 (0.2-1.3) mg/dL AST 20 (17-59) U/L ALT 9 (6-50) U/L Alkaline Phosphatase 115 (38-126) U/L Albumin 4.2 (3.5-5.1) g/dL Urine 08/09/24 Range/Units 03:29 Urine Color Yellow (Yellow) Urine Appearance Clear (Clear) Urine pH 8.0 (5.0-9.0) Ur Specific [place] 1.040 H (1.001-1.035) Urine Protein Trace (Negative) mg/dL Urine Glucose (UA) Negative (Negative) mg/dL <Sujata Campos, [employer] T[employer] JELLY - Last Filed: 08/09/24 16:07>
[2024-08-09] MEDS: IRON SUCROSE COMPLEX 400 MG in SODIUM CHLORIDE 0.9% IV 250 ML 108 MG IVPB (10:03)
[2024-08-09] MEDS: LIDOCAINE 5% PATCH 2 PATCH TRANSDERM (10:03)
[2024-08-09] MEDS: ACETAMINOPHEN 325 MG TABLET 650 MG PO ×2 (10:03→16:39)
[2024-08-09 13:02] LABS: Immature Reticulocyte Fraction 18.9 % (3.0-15.9); Reticulocyte Hemoglobin Conten 19.4 pg (28.2-36.6); Reticulocyte Percent 1.51 % (0.7-4.3); Reticulocytes Absolute 0.05 10^6/uL (0.02-0.10)
--- NOTE | 2024-08-09 13:45 | PM.IMHP ---
H&P: HPI History of Present Illness Date/Time: 08/09/24 13:45 Chief Complaint: neck pain Narrative: 79-year-old male with past medical history of hypothyroidism presented to the ER with neck pain. Patient reported he has been having neck pain for the past 2 weeks, also known noted painful swallowing. Otherwise denies any chest pain no shortness of breadth no vomiting abdominal pain diarrhea dysuria no focal symptoms. No blood in stool or black stools no fever. ER evaluation notable for temperature 98.8?, pulse 1, respiratory rate 18, blood pressure 175/67, saturating 90% on room air. CEA elevated at 3.2. CT soft neck are remarkable. Chest x-ray no acute findings. GI was consulted and patient received 2 units of blood prior to admission. Review of Systems Review of Systems: All other systems reviewed and negative except as noted in the HPI above. [facility] Past Medical History Medical History BMI 27.0-27.9,adult Hypertension entered incorrectly Surgical History Surgical History Status post fusion of wrist Family History Family History Father Cerebrovascular accident Sibling Family history of diabetes mellitus in first degree relative Patient's brother is Mother No problems noted. Other Family history of arthritis Social History Social History Smoking packs per day: 1 Smoking cigarettes per day: 20.0 Years smoked: 50 Smoking pack-years: 50.00 Smoking status: Former smoker Tobacco type: cigarettes Second hand tobacco smoke exposure: Yes Alcohol intake: current Alcohol use details: Social Substance use: never Substance use type: does not use Do You Feel Safe in your Home?: Yes Lack of Transportation: No Lack of Food: Never True Current Housing: I Have Housing Concerned About Future Housing: No Difficulty Paying Gas/Electric Bills: No Difficulty Paying for Meds: No Currently Unemployed: No Education: High School Diploma/GED Difficulty w/ Childcare or Family Care: No Living arrangements: alone Occupation/Education: retired Additional occupation/education comments: [employer] Gender identity (if verbalized by the patient): Male Spiritual care concerns: No Meds Home Medications and Allergies Home Medications ?Medication ?Instructions ?Recorded ?Confirmed ?Type aspirin 81 mg tablet,delayed 81 mg PO DAILY 04/08/19 08/09/24 History release (Adult Low Dose Aspirin) levothyroxine 137 mcg tablet 137 mcg PO DAILY #90 tabs 07/27/24 08/09/24 Rx (Synthroid) Allergies Allergy/AdvReac Type Severity Reaction Status Date / Time Kmfizfl-UIM-KzN Reductase AdvReac Intermediate Nausea Verified 07/27/24 11:08 Inhibitor (Ibtmfmi-Pow-Fbl Reductase Inhibitor) Vital Signs Vital Signs - 24 hr 08/08/24 19:09 08/08/24 20:51 08/08/24 21:09 Temperature 97.7 F Pulse Rate 105 H 86 82 Respiratory Rate 18 18 19 Blood Pressure 138/69 164/65 H Pulse Oximetry 100 100 99 Oxygen Delivery Room Air 08/08/24 21:10 08/08/24 21:31 08/08/24 21:56 Temperature Pulse Rate 80 84 93 Respiratory Rate 17 18 15 Blood Pressure 157/66 H 165/64 H Pulse Oximetry 100 100 100 Oxygen Delivery 08/08/24 22:01 08/08/24 22:31 08/08/24 23:19 Temperature Pulse Rate 88 82 84 Respiratory Rate 16 15 19 Blood Pressure 161/66 H 164/67 H 153/71 H Pulse Oximetry 99 100 100 Oxygen Delivery 08/09/24 01:17 08/09/24 02:08 08/09/24 02:26 Temperature 99 F 98.7 F Pulse Rate 89 92 97 Respiratory Rate 16 22 H 21 H Blood Pressure 161/70 H 158/72 H 166/69 H Pulse Oximetry 99 99 99 Oxygen Delivery 08/09/24 03:01 08/09/24 03:54 08/09/24 04:17 Temperature 98.1 F 98.9 F Pulse Rate 87 84 91 Respiratory Rate 22 H 11 L 20 Blood Pressure 166/69 H 182/72 H 182/71 H Pulse Oximetry 97 98 100 Oxygen Delivery 08/09/24 05:17 08/09/24 05:22 08/09/24 06:15 Temperature 98.6 F Pulse Rate 85 85 83 Respiratory Rate 18 22 H Blood Pressure 175/72 H 145/66 H Pulse Oximetry 100 100 Oxygen Delivery 08/09/24 06:17 08/09/24 06:19 08/09/24 09:22 Temperature 98.8 F Pulse Rate 85 91 Respiratory Rate 22 H 18 Blood Pressure 145/66 H 175/67 H Pulse Oximetry 100 100 98 Oxygen Delivery Room Air Exam Narrative: General: alert and comfortable Eyes: EOMI, PERRLA ENT External ears normal, Neck is supple, no masses, Respiratory systems: Clear to auscultation Cardiovascular S1, S2, normal rhythm, no murmur, rub, or gallop; no thrill or palpable murmurs on palpation. Gastrointestinal: soft, non-tender, and non-distended abdomen with no masses; BS present Skin: no rash, lesions, ulcerations, subcutaneous nodules or induration Musculoskeletal: no abnormality and no tenderness, normal ROM Neurologic: Alert and oriented x3, non focal Mental Status Exam: normal affect H&P: Results Labs Labs: Short CBC 08/08/24 Range/Units 20:12 WBC 11.6 H (4.5-10.0) K/mm3 Hgb 5.9 L* (14.0-18.0) g/dL Hct 21.3 L (42.0-52.0) % Plt Count 480 H (150-375) k/mm3 BMP 08/08/24 20:12 Sodium 133 L Potassium 3.9 Chloride 100 Carbon Dioxide 22 BUN 11 Creatinine 0.98 Glucose 128 H Calcium 9.0 Cardiac Enzymes 08/08/24 Range/Units 21:36 Troponin I < 0.012 (0.000-0.034) ng/mL Liver Function 08/08/24 Range/Units 20:12 Total Bilirubin 0.5 (0.2-1.3) mg/dL AST 20 (17-59) U/L ALT 9 (6-50) U/L Alkaline Phosphatase 115 (38-126) U/L Albumin 4.2 (3.5-5.1) g/dL Urine 08/09/24 Range/Units 03:29 Urine Color Yellow (Yellow) Urine Appearance Clear (Clear) Urine pH 8.0 (5.0-9.0) Ur Specific [place] 1.040 H (1.001-1.035) Urine Protein Trace (Negative) mg/dL Urine Glucose (UA) Negative (Negative) mg/dL Assessment and Plan Assessment and plan (1) Anemia: Code(s): D64.9 - Anemia, unspecified Status: Acute (2) JEZ (iron deficiency anemia): Qualifiers: Iron deficiency anemia type: chronic blood loss Qualified Code(s): D50.0 - Iron deficiency anemia secondary to blood loss (chronic) Code(s): D50.9 - Iron deficiency anemia, unspecified Status: Acute Plan Neck pain with odynophagia No pain on palpation. CT soft tissue neck unremarkable. Continue p.r.n. pain medication. GI consulted Severe anemia rule out GI mass vs bleed Patient denies any melena stool no blood in stool and no abdominal tenderness on palpation Given elevated carcinoembryonic antigen CT abdomen pelvis and chest ordered. Hemoglobin is 5.9 s/p 2 units PRBC. Repeat hemoglobin pending. Monitor H&H. GI consulted Iron deficiency Ferritin 6.7, and saturation is for Rule out GI malignancy On IV iron 400/1000. Monitor Hypothyroidism Continue home medications. DVT prophylaxis SCDs, pending GI bleed rule out. Full code Surrogate decision maker is geronimo Pacheco Hospitalist MIPS Advance Care Plan I have confirmed that the patient's Advanced Care Plan is present, code status is documented, or surrogate decision maker is listed in patient medical record.: Yes Medication Reconciliation I have utilized all available resources to obtain, update and review the patients current medications (includes all prescriptions, OTC, herbals, cannabis, and nutritional supplements).: Yes
[2024-08-09 13:50] LABS: Carcinoembryonic Antigen 3.2 ng/mL (0.0-3.0)
[2024-08-09 14:26] LABS: Folic Acid 10.9 ng/mL (2.76->20)
[2024-08-09] MEDS: AMOXICILLIN/CLAVULANATE K 500-125 MG TAB 1 TABLET PO ×2 (14:54→20:52)
[2024-08-09] MEDS: polyethylene glycoL 3350 238 GM BOTTLE PO (16:40)
[2024-08-09] MEDS: BISACODYL 5 MG TABLET EC 20 MG PO (18:17)
[2024-08-10] VITALS (13 sets, daily range): BP systolic 112–139; BP diastolic 41–63; PULSE 70–91; RESP 16–20; TEMP 36.4–37.5; O2SAT 76–100
[2024-08-10] MEDS: ACETAMINOPHEN 325 MG TABLET 650 MG PO ×3 (00:38→11:44)
[2024-08-10] MEDS: MAGNESIUM CITRATE 300 ML BTL PO (02:16)
[2024-08-10] MEDS: LEVOTHYROXINE SODIUM 112 MCG TABLET PO (05:42)
[2024-08-10] MEDS: AMOXICILLIN/CLAVULANATE K 500-125 MG TAB 1 TABLET PO ×3 (05:42→22:02)
[2024-08-10] MEDS: LEVOTHYROXINE SODIUM 25 MCG TABLET PO (05:42)
[2024-08-10 07:51] LABS: Basophils Absolute Auto 0.1 K/mm3 (0.0-0.1); Basophils Percent Auto 0.2 % (0.2-1.2); Hematocrit 24.3 % (42.0-52.0); Hemoglobin 7.2 g/dL (14.0-18.0); Immature Granulocyte Absolute 0.74 K/mm3 (0.00-0.031); Immature Granulocyte Percent A 3.2 % (0-0.5); Lymphocytes Absolute Auto 0.78 K/mm3 (0.9-3.2); Lymphocytes Percent Auto 3.3 % (18.3-44.2); Mean Corpuscular HGB Conc 29.6 g/dl (32-36); Mean Corpuscular Hemoglobin 20.8 pg (26-34); Mean Corpuscular Volume 70.2 fl (80-100); Mean Platelet Volume 8.8 fl (7.4-10.4); Monocytes Absolute Auto 2.3 K/mm3 (0.1-0.6); Neutrophils Absolute Auto 19.4 K/mm3 (1.3-6.7); Neutrophils Percent Auto 83.3 % (45.5-73.1); Platelet Count Result 413 k/mm3 (150-375); Red Blood Count 3.46 M/mm3 (4.6-6.20); Red Cell Distribution Width 20.1 % (11.5-14.5); White Blood Count 23.4 K/mm3 (4.5-10.0)
[2024-08-10 08:11] LABS: Anisocytosis 1+; Hypochromasia 1+; Platelet Estimate Slightly Increased (Adequate); Schistocytes None Seen
[2024-08-10 08:20] LABS: Alanine Aminotransferase 10 U/L (6-50); Albumin Level 3.4 g/dL (3.5-5.1); Alkaline Phosphatase 88 U/L (38-126); Anion Gap 7 mmol/L (4-12); Aspartate Amino Transferase 21 U/L (17-59); Bilirubin,Total 0.6 mg/dL (0.2-1.3); Blood Urea Nitrogen 11 mg/dL (9-20); Calcium 8.6 mg/dL (8.4-10.2); Carbon Dioxide 23 mmol/L (22-30); Chloride 101 mmol/L (98-107); Estimated CRCL calculation 67 ml/min; Estimated Glomerular Filt Rate > 60; Glucose 132 mg/dL (65-110); Potassium 3.7 mmol/L (3.4-5.0); Sodium 131 mmol/L (137-145)
--- NOTE | 2024-08-10 09:31 | PC.NURSE ---
to GI lab via wheelchair
[2024-08-10] MEDS: LACTATED RINGERS 1,000 ML 150 ML IV CONT (09:52)
--- NOTE | 2024-08-10 09:57 | WPDANESEPPF ---
Anes - Initial Pre Proc Eval Procedure: Operation Date: 08/10/24 14:30 Proposed Procedures p Esophagogastroduodenoscopy & Colonoscopy - Heath Nuñez MD Date/Time: 08/10/24 09:57 Surgeon: Kami Sy DO Pre Op Diagnosis: Anemia, Neck pain Patient Data Age: 79 Gender: M Height: 1.83 m Weight: 86.5 kg Last Vital Signs Temp 98.2 F 08/10/24 09:50 Pulse 91 08/10/24 09:50 Resp 19 08/10/24 09:50 BP 122/53 L 08/10/24 09:50 Pulse Ox 97 08/10/24 09:50 O2 Del Method Room Air 08/10/24 09:50 Allergies Allergy/AdvReac Type Severity Reaction Status Date / Time Bpxaxqh-YLT-WjJ Reductase AdvReac Intermediate Nausea Verified 08/10/24 09:44 Inhibitor (Jjmswmi-Bio-Yvp Reductase Inhibitor) Home Medications ?Medication ?Instructions ?Recorded ?Confirmed ?Type aspirin 81 mg tablet,delayed 81 mg PO DAILY 04/08/19 08/09/24 History release (Adult Low Dose Aspirin) levothyroxine 137 mcg tablet 137 mcg PO DAILY #90 tabs 07/27/24 08/09/24 Rx (Synthroid) Laboratory Tests 08/08/24 08/10/24 20:12 07:44 WBC 23.4 H K/mm3 (4.5-10.0) RBC 3.46 L M/mm3 (4.6-6.20) Hgb 7.2 L g/dL (14.0-18.0) Hct 24.3 L % (42.0-52.0) MCV 70.2 L fl (80-100) MCH 20.8 L D pg (26-34) MCHC 29.6 L g/dl (32-36) RDW 20.1 H % (11.5-14.5) Plt Count 413 H k/mm3 (150-375) MPV 8.8 fl (7.4-10.4) Immature Gran % (Auto) 3.2 H % (0-0.5) Neut % (Auto) 83.3 H % (45.5-73.1) Lymph % (Auto) 3.3 L % (18.3-44.2) [place] % (Auto) 10.0 H % (2.6-8.5) Eos % (Auto) 0.0 % (0-4.4) Baso % (Auto) 0.2 % (0.2-1.2) Lymph # (Auto) 0.78 L K/mm3 (0.9-3.2) [place] # (Auto) 2.3 H K/mm3 (0.1-0.6) Eos # (Auto) 0.0 K/mm3 (0-0.3) Baso # (Auto) 0.1 K/mm3 (0.0-0.1) Abs Immat Gran (auto) 0.74 H K/mm3 (0.00-0.031) Absolute Neuts (auto) 19.4 H K/mm3 (1.3-6.7) Absolute Nucleated RBC 0.000 K/mm3 (0.0-0.012) Band Neutrophils % Not Reportable Nucleated RBC % 0.0 % (0.0-0.2) Platelet Estimate Slightly increased (Adequate) Hypochromasia 1+ Anisocytosis 1+ Schistocytes None seen Absolute Retic 0.05 10^6/uL (0.02-0.10) Percent Retic 1.51 % (0.7-4.3) Immature Retic Fraction 18.9 H % (3.0-15.9) Retic Hgb Content 19.4 L pg (28.2-36.6) Haptoglobin Pending Sodium 131 L mmol/L (137-145) Potassium 3.7 mmol/L (3.4-5.0) Chloride 101 mmol/L (98-107) Carbon Dioxide 23 mmol/L (22-30) Anion Gap 7 mmol/L (4-12) BUN 11 mg/dL (9-20) Creatinine 0.86 mg/dL (0.7-1.3) Estim Creat Clear Calc 67 ml/min Estimated GFR > 60 (59 - ) Glucose 132 H mg/dL (65-110) Calcium 8.6 mg/dL (8.4-10.2) Erythropoietin Pending Total Bilirubin 0.6 mg/dL (0.2-1.3) AST 21 U/L (17-59) ALT 10 U/L (6-50) Alkaline Phosphatase 88 U/L (38-126) Total Protein 7.0 g/dL (6.3-8.2) Albumin 3.4 L g/dL (3.5-5.1) Carcinoembryonic Ag 3.2 H ng/mL (0.0-3.0) Vitamin B12 861.0 pg/mL (239-931) Folate 10.9 ng/mL (2.76->20) Patient hx anesthesia problems: none Family hx anesthesia problems: none Results Review: All pre-operative results and documents have been reviewed as part of the pre-operative evaluation. COUNTS INCLUDE 234 BEDS AT THE [facility] Past Medical History Medical History BMI 27.0-27.9,adult Hypertension entered incorrectly Surgical History Surgical History Status post fusion of wrist Family History Family History Father Cerebrovascular accident Sibling Family history of diabetes mellitus in first degree relative Patient's brother is Mother No problems noted. Other Family history of arthritis Social History Social History Smoking packs per day: 1 Smoking cigarettes per day: 20.0 Years smoked: 50 Smoking pack-years: 50.00 Smoking status: Former smoker Tobacco type: cigarettes Second hand tobacco smoke exposure: Yes Alcohol intake: current Alcohol use details: Social Substance use: never Substance use type: does not use Do You Feel Safe in your Home?: Yes Lack of Transportation: No Lack of Food: Never True Current Housing: I Have Housing Concerned About Future Housing: No Difficulty Paying Gas/Electric Bills: No Difficulty Paying for Meds: No Currently Unemployed: No Education: High School Diploma/GED Difficulty w/ Childcare or Family Care: No Living arrangements: alone Occupation/Education: retired Additional occupation/education comments: [employer] Gender identity (if verbalized by the patient): Male Spiritual care concerns: No Anes - Eval Final PreProcedure Day of Procedure 08/10/24 09:57 Patient weight: normal Heart: regular rate and rhythm Lungs: clear to auscultation Airway: Mallampati scale class II Neurological: alert and oriented Last oral intake: >/= 8 hours ASA classification: IV Emergent: no Anesthetic plan: proceed Anesthesia type and monitoring: general GIVS and standard monitoring Results Review: All pre-operative results and documents have been reviewed as part of the pre-operative evaluation. Informed Consent: The patient's anesthetic plan and its attendant risks and benefits were discussed with the patient/family/POA. Questions were solicited and answers provided to the satisfaction of the patient/family/POA.
--- NOTE | 2024-08-10 10:25 | SUR.OPER ---
EGD start 1017 end 102, Colonoscopy start 102
--- NOTE | 2024-08-10 10:33 | P.PNIM_ITS ---
Progress Note: A&P Assessment and Plan (1) Anemia: Code(s): D64.9 - Anemia, unspecified Status: Acute (2) JEZ (iron deficiency anemia): Qualifiers: Iron deficiency anemia type: chronic blood loss Qualified Code(s): D50.0 - Iron deficiency anemia secondary to blood loss (chronic) Code(s): D50.9 - Iron deficiency anemia, unspecified Status: Acute Plan Neck pain with odynophagia No pain on palpation. CT soft tissue neck unremarkable. Continue p.r.n. pain medication. GI following Severe anemia rule out GI mass vs bleed Patient denies any melena stool no blood in stool and no abdominal tenderness on palpation Given elevated carcinoembryonic antigen CT abdomen pelvis and chest ordered. Hemoglobin is 7.2 s/p 2 units PRBC. Repeat hemoglobin pending. Monitor H&H. Fro Endoscopy today GI following Iron deficiency Ferritin 6.7, and saturation 4 Rule out GI malignancy On IV iron 900/1000. Monitor h and H Axillary lymphadenopathy Biopsy ordered follow up Hypothyroidism Continue home medications. DVT prophylaxis SCDs, pending GI bleed rule out. Full code Surrogate decision maker is geronimo Pacheco Subjective Date/time seen: 08/10/24 10:33 Interval history: Patient comfortable at bedside FOr endoscopy today CT guided biopsy of left axillary lymph node ordered Review of Systems Review of Systems: All other systems reviewed and negative except as noted in the HPI above. Exam Narrative: General: alert and comfortable Eyes: EOMI, PERRLA ENT External ears normal, Neck is supple, no masses, Respiratory systems: Clear to auscultation Cardiovascular S1, S2, normal rhythm, no murmur, rub, or gallop; no thrill or palpable murmurs on palpation. Gastrointestinal: soft, non-tender, and non-distended abdomen with no masses; BS present Skin: no rash, lesions, ulcerations, subcutaneous nodules or induration Musculoskeletal: no abnormality and no tenderness, normal ROM Neurologic: Alert and oriented x3, non focal Mental Status Exam: normal affect Objective Data Vital Signs Vital Signs: Vital Signs - 24 hr 08/09/24 12:00 08/09/24 14:00 08/09/24 16:00 Temperature 99.2 F Pulse Rate 89 88 86 Respiratory Rate 16 Blood Pressure 158/56 H Pulse Oximetry 99 Oxygen Delivery 08/09/24 20:00 08/09/24 20:00 08/09/24 21:31 Temperature 97.8 F Pulse Rate 97 73 Respiratory Rate 16 Blood Pressure 147/57 H Pulse Oximetry 100 Oxygen Delivery Room Air 08/10/24 00:00 08/10/24 04:00 08/10/24 05:36 Temperature 97.6 F Pulse Rate 83 79 78 Respiratory Rate 16 Blood Pressure 139/48 L Pulse Oximetry 100 Oxygen Delivery 08/10/24 07:54 08/10/24 09:50 Temperature 98.2 F Pulse Rate 91 Respiratory Rate 19 Blood Pressure 122/53 L Pulse Oximetry 97 Oxygen Delivery Room Air Room Air Intake/Output Intake/Output: Intake & Output 08/07/24 08/08/24 08/09/24 08/10/24 23:59 23:59 23:59 23:59 Intake Total 2129.6 0 Output Total 350 Balance 1779.6 0 Meds/Results Medications: Active Medications Generic Name Dose Route Start Last Admin Trade Name Freq PRN Reason Stop Dose Admin Acetaminophen 650 mg 08/09/24 09:25 08/10/24 05:42 Acetaminophen 325 Mg Tablet PO 650 mg Q4H PRN Administration Mild Pain (1-3) or Fever Amoxicillin/Clavulanate Potassium 1 tablet 08/09/24 09:55 08/10/24 05:42 Amoxicillin/Clavulanate K 500-125 Mg Tab PO 1 tablet Q8HR GEMA Administration Sodium Chloride 1,000 mls @ 125 mls/hr 08/09/24 00:45 08/09/24 05:46 Normal Saline Iv IV CONT 125 mls/hr .Q8H GEMA Infusion Iron Sucrose 400 mg/ Iron 275 mls @ 78.571 mls/hr 08/10/24 09:00 Sucrose 100 mg/ Sodium IVPB 08/10/24 12:29 Chloride ONCE ONE Lactated Ringer's 1,000 mls @ 150 mls/hr 08/10/24 09:50 08/10/24 09:52 Lr - Lactated Ringers Iv IV CONT 150 mls/hr .Q6H40M GEMA Administration Levothyroxine Sodium 112 mcg 08/10/24 06:30 08/10/24 05:42 Levothyroxine Sodium 112 Mcg Tablet PO 112 mcg DAILY@0630 GEMA Administration Levothyroxine Sodium 25 mcg 08/10/24 06:30 08/10/24 05:42 Levothyroxine Sodium 25 Mcg Tablet PO 25 mcg DAILY@0630 GEMA Administration Lidocaine 2 patch 08/09/24 09:00 08/09/24 10:03 Lidocaine 5% Patch TRANSDERM 2 patch DAILY GEMA Administration Pantoprazole Sodium 40 mg 08/09/24 09:00 08/09/24 09:28 Pantoprazole Sodium Iv 40 Mg Vial IV PUSH 40 mg QAM GEMA Administration Radiology Results: ITS Impressions Soft Tissue Neck CT 08/08/24 22:57 IMPRESSION: No acute findings within the lower head and neck, as detailed above. Chest X-Ray 08/08/24 23:17 IMPRESSION: Coarse interstitial change, without focal infiltrate or effusion. Chest/Abdomen/Pelvis CT 08/09/24 14:19 Impression: Single enlarged left axillary lymph node, indeterminate. Consider PET/CT or tissue sampling to further evaluate versus follow-up. Stable 6 mm left basilar pulmonary nodule. Stability since 2000 is compatible with benign nodule. Cholelithiasis. Small bilateral nonobstructing renal stones. Chronic mild thoracic spine compression deformities, as above. Labs Labs: Laboratory Results - last 24 hr 08/08/24 08/10/24 20:12 07:44 WBC 23.4 H RBC 3.46 L Hgb 7.2 L Hct 24.3 L MCV 70.2 L MCH 20.8 L D MCHC 29.6 L RDW 20.1 H Plt Count 413 H MPV 8.8 Immature Gran % (Auto) 3.2 H Neut % (Auto) 83.3 H Lymph % (Auto) 3.3 L [place] % (Auto) 10.0 H Eos % (Auto) 0.0 Baso % (Auto) 0.2 Lymph # (Auto) 0.78 L [place] # (Auto) 2.3 H Eos # (Auto) 0.0 Baso # (Auto) 0.1 Abs Immat Gran (auto) 0.74 H Absolute Neuts (auto) 19.4 H Absolute Nucleated RBC 0.000 Band Neutrophils % Not Reportable Nucleated RBC % 0.0 Platelet Estimate Slightly increased Hypochromasia 1+ Anisocytosis 1+ Schistocytes None seen Absolute Retic 0.05 Percent Retic 1.51 Immature Retic Fraction 18.9 H Retic Hgb Content 19.4 L Sodium 131 L Potassium 3.7 Chloride 101 Carbon Dioxide 23 Anion Gap 7 BUN 11 Creatinine 0.86 Estim Creat Clear Calc 67 Estimated GFR > 60 Glucose 132 H Calcium 8.6 Total Bilirubin 0.6 AST 21 ALT 10 Alkaline Phosphatase 88 Total Protein 7.0 Albumin 3.4 L Carcinoembryonic Ag 3.2 H Vitamin B12 861.0 Folate 10.9
--- NOTE | 2024-08-10 11:15 | PC.NURSE ---
pt returned from GI lab, resting comfortably, will administer meds per MAR
[2024-08-10] MEDS: IRON SUCROSE COMPLEX 400 MG, IRON SUCROSE COMPLEX 100 MG in SODIUM CHLORIDE 0.9% IV 250 ML 78.57 MG IVPB (11:40)
[2024-08-10] MEDS: PANTOPRAZOLE SOD SESQUIHYDRATE 20 MG TAB PO (11:43)
[2024-08-10] MEDS: LIDOCAINE 5% PATCH 2 PATCH TRANSDERM (11:43)
[2024-08-10 11:58] LABS: INR 1.4; Prothrombin Time 17.2 Seconds (11.1-14.7)
[2024-08-10] MEDS: TIZANIDINE HCL 2 MG TABLET PO (14:04)
--- NOTE | 2024-08-10 14:25 | PC.NURSE ---
pt to ultrasound for scheduled biopsy via stretcher
--- NOTE | 2024-08-10 15:15 | PC.NURSE ---
pt returned to room, resting comfortably
[2024-08-11] VITALS (9 sets, daily range): BP systolic 133–145; BP diastolic 57–81; PULSE 70–85; RESP 16; TEMP 36.5–37.5; O2SAT 95–97
[2024-08-11 02:13] LABS: Haptoglobin 242 mg/dL (43-212)
[2024-08-11] MEDS: AMOXICILLIN/CLAVULANATE K 500-125 MG TAB 1 TABLET PO ×3 (06:15→20:52)
[2024-08-11] MEDS: LEVOTHYROXINE SODIUM 112 MCG TABLET PO (06:15)
[2024-08-11] MEDS: LEVOTHYROXINE SODIUM 25 MCG TABLET PO (06:15)
[2024-08-11 06:55] LABS: Basophils Absolute Auto 0.1 K/mm3 (0.0-0.1); Basophils Percent Auto 0.4 % (0.2-1.2); Eosinophils Percent Auto 0.1 % (0-4.4); Hematocrit 24.6 % (42.0-52.0); Immature Granulocyte Absolute 0.08 K/mm3 (0.00-0.031); Immature Granulocyte Percent A 0.6 % (0-0.5); Lymphocytes Absolute Auto 1.42 K/mm3 (0.9-3.2); Lymphocytes Percent Auto 10.2 % (18.3-44.2); Mean Corpuscular HGB Conc 28.5 g/dl (32-36); Mean Corpuscular Hemoglobin 20.2 pg (26-34); Mean Corpuscular Volume 71.1 fl (80-100); Mean Platelet Volume 9.4 fl (7.4-10.4); Monocytes Absolute Auto 2.1 K/mm3 (0.1-0.6); Monocytes Percent Auto 15.1 % (2.6-8.5); Neutrophils Absolute Auto 10.2 K/mm3 (1.3-6.7); Neutrophils Percent Auto 73.6 % (45.5-73.1); Platelet Count Result 400 k/mm3 (150-375); Red Blood Count 3.46 M/mm3 (4.6-6.20); Red Cell Distribution Width 21.1 % (11.5-14.5); White Blood Count 13.9 K/mm3 (4.5-10.0)
[2024-08-11 07:10] LABS: Alanine Aminotransferase 10 U/L (6-50); Albumin Level 3.1 g/dL (3.5-5.1); Alkaline Phosphatase 88 U/L (38-126); Anion Gap 9 mmol/L (4-12); Aspartate Amino Transferase 19 U/L (17-59); Bilirubin,Total 0.4 mg/dL (0.2-1.3); Blood Urea Nitrogen 15 mg/dL (9-20); Calcium 8.3 mg/dL (8.4-10.2); Carbon Dioxide 22 mmol/L (22-30); Chloride 102 mmol/L (98-107); Estimated CRCL calculation 54 ml/min; Estimated Glomerular Filt Rate > 60; Glucose 93 mg/dL (65-110); Magnesium 2.2 mg/dL (1.6-2.3); Potassium 3.8 mmol/L (3.4-5.0); Sodium 133 mmol/L (137-145)
[2024-08-11 07:48] LABS: Anisocytosis 1+; Platelet Estimate Slightly Increased (Adequate)
[2024-08-11 07:49] LABS: Schistocytes None Seen
[2024-08-11] MEDS: IRON SUCROSE COMPLEX 100 MG in SODIUM CHLORIDE 0.9% IV 50 ML 220 MG IVPB (10:11)
[2024-08-11] MEDS: LIDOCAINE 5% PATCH 2 PATCH TRANSDERM (10:12)
[2024-08-11] MEDS: PANTOPRAZOLE SOD SESQUIHYDRATE 20 MG TAB PO (10:12)
[2024-08-11] MEDS: TIZANIDINE HCL 2 MG TABLET PO ×2 (13:11→20:52)
[2024-08-11 13:13] LABS: Hematocrit 25.1 % (42.0-52.0); Hemoglobin 7.2 g/dL (14.0-18.0)
--- NOTE | 2024-08-11 13:18 | PC.NURSE ---
Notified Dr Nuñez that there is no Medical [employer] business controller.
--- NOTE | 2024-08-11 14:41 | WPDGIPROGNO ---
Progress Note: A&P Assessment and Plan (1) JEZ (iron deficiency anemia): Qualifiers: Iron deficiency anemia type: chronic blood loss Qualified Code(s): D50.0 - Iron deficiency anemia secondary to blood loss (chronic) Code(s): D50.9 - Iron deficiency anemia, unspecified Status: Acute Assessment and Plan: did not find signs of bleeding, only gastritis will set up capsule endoscopy as outpatient also will need hem-onc evaluation (pending LN biopsy) will follow as needed (2) Lymph nodes enlarged: Code(s): R59.9 - Enlarged lymph nodes, unspecified Status: Acute (3) Neck pain: Code(s): M54.2 - Cervicalgia Status: Acute Assessment and Plan: main problem, still with pain (4) Hyponatremia: Code(s): E87.1 - Hypo-osmolality and hyponatremia Status: Acute Subjective Date/time seen: 08/11/24 14:41 Interval history: egd and colonoscopy no signs of bleeding today had bx of LN axilla Review of Systems Review of Systems: All systems reviewed & are unremarkable except as noted in HPI and below Exam Const: General: comfortable and no acute distress HENMT: Face/Nose/Sinus: Normal nares present Eyes: General: appearance normal, both eyes and all related structures Neck: Neck: no JVD Resp: Auscultation: clear to auscultation bilaterally Cardio: Rate: regular rate Rhythm: regular rhythm GI: Inspection: non-distended GI Palp: Yes Soft to palpation Skin: General skin exam: normal color Neuro: Speech: normal speech Extrem: General: normal to inspection Psych: Mental Status: mental status grossly normal Objective Data Vital Signs Vital Signs: Vital Signs - 24 hr 08/10/24 16:25 08/10/24 20:00 08/10/24 20:00 Temperature Pulse Rate 70 78 Respiratory Rate Blood Pressure Pulse Oximetry Oxygen Delivery Room Air 08/10/24 21:43 08/11/24 00:00 08/11/24 04:00 Temperature 98.7 F Pulse Rate 86 84 76 Respiratory Rate 16 Blood Pressure 130/63 Pulse Oximetry 94 Oxygen Delivery 08/11/24 04:33 Temperature 99.5 F Pulse Rate 85 Respiratory Rate 16 Blood Pressure 133/57 L Pulse Oximetry 96 Oxygen Delivery Intake/Output Intake/Output: Intake & Output 03/17/25 08/09/24 08/10/24 08/11/24 23:59 23:59 23:59 23:59 Intake Total 2129.6 620 1346.4 Output Total 350 Balance 1779.6 620 1346.4 Meds/Results Medications: Active Medications Generic Name Dose Route Start Last Admin Trade Name Freq PRN Reason Stop Dose Admin Acetaminophen 650 mg 08/09/24 09:25 08/10/24 11:44 Acetaminophen 325 Mg Tablet PO 650 mg Q4H PRN Administration Mild Pain (1-3) or Fever Amoxicillin/Clavulanate Potassium 1 tablet 08/09/24 09:55 08/11/24 13:11 Amoxicillin/Clavulanate K 500-125 Mg Tab PO 1 tablet Q8HR GEMA Administration Sodium Chloride 1,000 mls @ 125 mls/hr 08/09/24 00:45 08/11/24 10:06 Normal Saline Iv IV CONT Not Given .Q8H GEMA Levothyroxine Sodium 112 mcg 08/10/24 06:30 08/11/24 06:15 Levothyroxine Sodium 112 Mcg Tablet PO 112 mcg DAILY@0630 GEMA Administration Levothyroxine Sodium 25 mcg 08/10/24 06:30 08/11/24 06:15 Levothyroxine Sodium 25 Mcg Tablet PO 25 mcg DAILY@0630 GEMA Administration Lidocaine 2 patch 08/09/24 09:00 08/11/24 10:12 Lidocaine 5% Patch TRANSDERM 2 patch DAILY GEMA Administration Pantoprazole Sodium 20 mg 08/10/24 11:05 08/11/24 10:12 Pantoprazole Sod Sesquihydrate 20 Mg Tab PO 20 mg QAM GEMA Administration Tizanidine HCl 2 mg 08/10/24 13:10 08/11/24 13:11 Tizanidine Hcl 2 Mg Tablet PO 2 mg Q8HR PRN Administration Muscle/Joint Pain Radiology Results: ITS Impressions Soft Tissue Neck CT 08/08/24 22:57 IMPRESSION: No acute findings within the lower head and neck, as detailed above. Chest X-Ray 08/08/24 23:17 IMPRESSION: Coarse interstitial change, without focal infiltrate or effusion. Chest/Abdomen/Pelvis CT 08/09/24 14:19 Impression: Single enlarged left axillary lymph node, indeterminate. Consider PET/CT or tissue sampling to further evaluate versus follow-up. Stable 6 mm left basilar pulmonary nodule. Stability since 2000 is compatible with benign nodule. Cholelithiasis. Small bilateral nonobstructing renal stones. Chronic mild thoracic spine compression deformities, as above. Lymph Node Biopsy Ultrasound 08/10/24 15:24 IMPRESSION: 1. Successful Ultrasound-guided biopsy of a 2.8 x 1.0 x 1.9 cm left axillary lymph node Labs Labs: Laboratory Results - last 24 hr 08/08/24 08/11/24 08/11/24 20:12 06:17 12:59 WBC 13.9 H RBC 3.46 L Hgb 7.0 L 7.2 L Hct 24.6 L 25.1 L MCV 71.1 L MCH 20.2 L MCHC 28.5 L RDW 21.1 H Plt Count 400 H MPV 9.4 Immature Gran % (Auto) 0.6 H Neut % (Auto) 73.6 H Lymph % (Auto) 10.2 L [place] % (Auto) 15.1 H Eos % (Auto) 0.1 Baso % (Auto) 0.4 Lymph # (Auto) 1.42 [place] # (Auto) 2.1 H Eos # (Auto) 0.0 Baso # (Auto) 0.1 Abs Immat Gran (auto) 0.08 H Absolute Neuts (auto) 10.2 H Absolute Nucleated RBC 0.000 Band Neutrophils % Not Reportable Nucleated RBC % 0.0 Platelet Estimate Slightly increased Anisocytosis 1+ Schistocytes None seen Haptoglobin 242 H Sodium 133 L Potassium 3.8 Chloride 102 Carbon Dioxide 22 Anion Gap 9 BUN 15 Creatinine 1.07 Estim Creat Clear Calc 54 Estimated GFR > 60 Glucose 93 Calcium 8.3 L Magnesium 2.2 Total Bilirubin 0.4 AST 19 ALT 10 Alkaline Phosphatase 88 Total Protein 7.0 Albumin 3.1 L
--- NOTE | 2024-08-11 16:16 | P.PNIM_ITS ---
Progress Note: A&P Assessment and Plan (1) Anemia: Code(s): D64.9 - Anemia, unspecified Status: Acute (2) JEZ (iron deficiency anemia): Qualifiers: Iron deficiency anemia type: chronic blood loss Qualified Code(s): D50.0 - Iron deficiency anemia secondary to blood loss (chronic) Code(s): D50.9 - Iron deficiency anemia, unspecified Status: Acute Plan Neck pain with odynophagia No pain on palpation. CT soft tissue neck unremarkable. Continue p.r.n. pain medication. GI following Severe Iron deficiency anemia Patient denies any melena stool no blood in stool and no abdominal tenderness on palpation Given elevated carcinoembryonic antigen CT abdomen pelvis and chest ordered. Hemoglobin is 7.2 s/p 2 units PRBC. EGD and colonoscopy, showed mild gastritis otherwise no source of bleeding start Protonix bid and monitor GI will do capsule endoscopy outpatient Monitor H&H. GI following Iron deficiency Ferritin 7.2, and saturation 4 Rule out GI malignancy On IV iron 1000/1000. Monitor h and H Axillary lymphadenopathy s/p biopsy Oncology consulted follow up Hypothyroidism Continue home medications. DVT prophylaxis SCDs, although EGD is negative, its possible patient may have small bowel bleed Subjective Date/time seen: 08/11/24 16:16 Interval history: Comfortable at bedside Endoscopy showed mild gastritis, otherwise no source of bleeding s/p LN, awaiting oncology eval prior to discharge Review of Systems 2 Review of Systems: All other systems reviewed and negative except as noted in the HPI above. Exam Narrative: General: alert and comfortable Eyes: EOMI, PERRLA ENT External ears normal, Neck is supple, no masses, Respiratory systems: Clear to auscultation Cardiovascular S1, S2, normal rhythm, no murmur, rub, or gallop; no thrill or palpable murmurs on palpation. Gastrointestinal: soft, non-tender, and non-distended abdomen with no masses; BS present Skin: no rash, lesions, ulcerations, subcutaneous nodules or induration Musculoskeletal: no abnormality and no tenderness, normal ROM Neurologic: Alert and oriented x3, non focal Mental Status Exam: normal affect Objective Data Vital Signs Vital Signs: Vital Signs - 24 hr 08/10/24 16:25 08/10/24 20:00 08/10/24 20:00 Temperature Pulse Rate 70 78 Respiratory Rate Blood Pressure Pulse Oximetry Oxygen Delivery Room Air 08/10/24 21:43 08/11/24 00:00 08/11/24 04:00 Temperature 98.7 F Pulse Rate 86 84 76 Respiratory Rate 16 Blood Pressure 130/63 Pulse Oximetry 94 Oxygen Delivery 08/11/24 04:33 08/11/24 08:01 08/11/24 08:01 Temperature 99.5 F Pulse Rate 85 82 Respiratory Rate 16 Blood Pressure 133/57 L Pulse Oximetry 96 Oxygen Delivery Room Air 08/11/24 12:02 08/11/24 14:00 Temperature 97.7 F Pulse Rate 76 70 Respiratory Rate 16 Blood Pressure 145/81 H Pulse Oximetry 97 Oxygen Delivery Intake/Output Intake/Output: Intake & Output 08/08/24 08/09/24 08/10/24 08/11/24 23:59 23:59 23:59 23:59 Intake Total 2129.6 620 1346.4 Output Total 350 Balance 1779.6 620 1346.4 Meds/Results Medications: Active Medications Generic Name Dose Route Start Last Admin Trade Name Freq PRN Reason Stop Dose Admin Acetaminophen 650 mg 08/09/24 09:25 08/10/24 11:44 Acetaminophen 325 Mg Tablet PO 650 mg Q4H PRN Administration Mild Pain (1-3) or Fever Amoxicillin/Clavulanate Potassium 1 tablet 08/09/24 09:55 08/11/24 13:11 Amoxicillin/Clavulanate K 500-125 Mg Tab PO 1 tablet Q8HR GEMA Administration Sodium Chloride 1,000 mls @ 125 mls/hr 08/09/24 00:45 08/11/24 10:06 Normal Saline Iv IV CONT Not Given .Q8H GEMA Levothyroxine Sodium 112 mcg 08/10/24 06:30 08/11/24 06:15 Levothyroxine Sodium 112 Mcg Tablet PO 112 mcg DAILY@0630 GEMA Administration Levothyroxine Sodium 25 mcg 08/10/24 06:30 08/11/24 06:15 Levothyroxine Sodium 25 Mcg Tablet PO 25 mcg DAILY@0630 GEMA Administration Lidocaine 2 patch 08/09/24 09:00 08/11/24 10:12 Lidocaine 5% Patch TRANSDERM 2 patch DAILY GEMA Administration Pantoprazole Sodium 20 mg 08/10/24 11:05 08/11/24 10:12 Pantoprazole Sod Sesquihydrate 20 Mg Tab PO 20 mg QAM GEMA Administration Tizanidine HCl 2 mg 08/10/24 13:10 08/11/24 13:11 Tizanidine Hcl 2 Mg Tablet PO 2 mg Q8HR PRN Administration Muscle/Joint Pain Radiology Results: ITS Impressions Soft Tissue Neck CT 08/08/24 22:57 IMPRESSION: No acute findings within the lower head and neck, as detailed above. Chest X-Ray 08/08/24 23:17 IMPRESSION: Coarse interstitial change, without focal infiltrate or effusion. Chest/Abdomen/Pelvis CT 08/09/24 14:19 Impression: Single enlarged left axillary lymph node, indeterminate. Consider PET/CT or tissue sampling to further evaluate versus follow-up. Stable 6 mm left basilar pulmonary nodule. Stability since 2000 is compatible with benign nodule. Cholelithiasis. Small bilateral nonobstructing renal stones. Chronic mild thoracic spine compression deformities, as above. Lymph Node Biopsy Ultrasound 08/10/24 15:24 IMPRESSION: 1. Successful Ultrasound-guided biopsy of a 2.8 x 1.0 x 1.9 cm left axillary lymph node Labs Labs: Laboratory Results - last 24 hr 08/08/24 08/11/24 08/11/24 20:12 06:17 12:59 WBC 13.9 H RBC 3.46 L Hgb 7.0 L 7.2 L Hct 24.6 L 25.1 L MCV 71.1 L MCH 20.2 L MCHC 28.5 L RDW 21.1 H Plt Count 400 H MPV 9.4 Immature Gran % (Auto) 0.6 H Neut % (Auto) 73.6 H Lymph % (Auto) 10.2 L [place] % (Auto) 15.1 H Eos % (Auto) 0.1 Baso % (Auto) 0.4 Lymph # (Auto) 1.42 [place] # (Auto) 2.1 H Eos # (Auto) 0.0 Baso # (Auto) 0.1 Abs Immat Gran (auto) 0.08 H Absolute Neuts (auto) 10.2 H Absolute Nucleated RBC 0.000 Band Neutrophils % Not Reportable Nucleated RBC % 0.0 Platelet Estimate Slightly increased Anisocytosis 1+ Schistocytes None seen Haptoglobin 242 H Sodium 133 L Potassium 3.8 Chloride 102 Carbon Dioxide 22 Anion Gap 9 BUN 15 Creatinine 1.07 Estim Creat Clear Calc 54 Estimated GFR > 60 Glucose 93 Calcium 8.3 L Magnesium 2.2 Total Bilirubin 0.4 AST 19 ALT 10 Alkaline Phosphatase 88 Total Protein 7.0 Albumin 3.1 L
[2024-08-11] MEDS: SODIUM CHLORIDE 0.9% IV 1,000 ML 125 ML IV CONT (20:51)
[2024-08-11] MEDS: ACETAMINOPHEN 325 MG TABLET 650 MG PO (20:52)
[2024-08-12] VITALS: PULSE 67
[2024-08-12 04:00] VITALS: PULSE 57
[2024-08-12] MEDS: ACETAMINOPHEN 325 MG TABLET 650 MG PO (04:50)
[2024-08-12 06:00] VITALS: BP 143/65; PULSE 71; RESP 16; O2SAT 96
[2024-08-12 06:00] LABS: Basophils Percent Auto 0.3 % (0.2-1.2); Eosinophils Absolute Auto 0.1 K/mm3 (0-0.3); Eosinophils Percent Auto 0.8 % (0-4.4); Hemoglobin 7.1 g/dL (14.0-18.0); Immature Granulocyte Absolute 0.06 K/mm3 (0.00-0.031); Immature Granulocyte Percent A 0.6 % (0-0.5); Lymphocytes Absolute Auto 1.36 K/mm3 (0.9-3.2); Lymphocytes Percent Auto 13.6 % (18.3-44.2); Mean Corpuscular HGB Conc 28.4 g/dl (32-36); Mean Corpuscular Hemoglobin 20.6 pg (26-34); Mean Corpuscular Volume 72.7 fl (80-100); Mean Platelet Volume 9.2 fl (7.4-10.4); Monocytes Absolute Auto 1.4 K/mm3 (0.1-0.6); Monocytes Percent Auto 13.9 % (2.6-8.5); Neutrophils Absolute Auto 7.1 K/mm3 (1.3-6.7); Neutrophils Percent Auto 70.8 % (45.5-73.1); Platelet Count Result 393 k/mm3 (150-375); Red Blood Count 3.44 M/mm3 (4.6-6.20); Red Cell Distribution Width 21.6 % (11.5-14.5)
[2024-08-12] MEDS: LEVOTHYROXINE SODIUM 25 MCG TABLET PO (06:05)
[2024-08-12] MEDS: AMOXICILLIN/CLAVULANATE K 500-125 MG TAB 1 TABLET PO ×2 (06:05→13:37)
[2024-08-12] MEDS: LEVOTHYROXINE SODIUM 112 MCG TABLET PO (06:05)
[2024-08-12] MEDS: SODIUM CHLORIDE 0.9% IV 1,000 ML 125 ML IV CONT ×2 (06:05→08:45)
[2024-08-12 06:11] LABS: Alanine Aminotransferase 14 U/L (6-50); Alkaline Phosphatase 89 U/L (38-126); Anion Gap 8 mmol/L (4-12); Aspartate Amino Transferase 25 U/L (17-59); Bilirubin,Total 0.4 mg/dL (0.2-1.3); Blood Urea Nitrogen 17 mg/dL (9-20); Calcium 8.1 mg/dL (8.4-10.2); Carbon Dioxide 21 mmol/L (22-30); Chloride 104 mmol/L (98-107); Estimated CRCL calculation 64 ml/min; Estimated Glomerular Filt Rate > 60; Glucose 85 mg/dL (65-110); Magnesium 2.1 mg/dL (1.6-2.3); Potassium 3.8 mmol/L (3.4-5.0); Sodium 133 mmol/L (137-145)
[2024-08-12 06:37] LABS: Anisocytosis 1+; Hypochromasia 1+; Platelet Estimate Adequate (Adequate)
[2024-08-12 06:38] LABS: Ovalocytes 1+; Schistocytes None Seen; Target Cells 1+
[2024-08-12 08:00] VITALS: PULSE 69; O2SAT 98
[2024-08-12] MEDS: PANTOPRAZOLE SOD SESQUIHYDRATE 20 MG TAB PO (08:49)
[2024-08-12] MEDS: LIDOCAINE 5% PATCH 2 PATCH TRANSDERM (08:49)
[2024-08-12] MEDS: TIZANIDINE HCL 2 MG TABLET PO (09:00)
[2024-08-12 12:00] VITALS: PULSE 89
--- NOTE | 2024-08-12 14:21 | P.DS_ITS ---
DS: Admitting Diagnosis Discharge Date 08/12/24 Admitting Diagnosis neck pain DS: Discharge Diagnosis Discharge Diagnosis (1) JEZ (iron deficiency anemia): Qualifiers: Iron deficiency anemia type: chronic blood loss Qualified Code(s): D50.0 - Iron deficiency anemia secondary to blood loss (chronic) Code(s): D50.9 - Iron deficiency anemia, unspecified Status: Acute (2) Anemia: Code(s): D64.9 - Anemia, unspecified Status: Acute DS: Summary Hospital Course Hospital Course: 79-year-old male with past medical history of hypothyroidism presented to the ER with neck pain. Patient reported he has been having neck pain for the past 2 weeks, also known noted painful swallowing. Otherwise denies any chest pain no shortness of breadth no vomiting abdominal pain diarrhea dysuria no focal symptoms. No blood in stool or black stools no fever. ER evaluation notable for temperature 98.8?, pulse 1, respiratory rate 18, blood pressure 175/67, saturating 90% on room air. CEA elevated at 3.2. CT soft neck are remarkable. Chest x-ray no acute findings. GI was consulted and patient received 2 units of blood prior to admission. EGD showed mild gastritis, colonoscopy no remarkable findings. GI noted that they will do outpatient Capsule endoscopy. contineu PPI bid until follow up with GI Received 2 units of pRBC, isat and ferritin 4 and 7.2, received 1000mg IV iron will follow up with GI as instructed CT AP and chest showed axillary lymphadenopathy which was biopsied and oncology was consulted and they noted they will follow up outpatient. Blood pressure was elevated consistently during this hospitalization, thus patient he was started on Lisinopril and HCTZ 5mg and 12.5mg daily. Patient will continue follow up with GI and oncology as instructed, and PCP in 3-5 days Time Spent with Patient Time attestation: Total time spent providing and/or coordinating discharge services: DS: Data Data Completed and Pending Completed studies during hospitalization: Pending at discharge 08/10/24 10:26 Surgical [PTH] Routine 08/10/24 15:10 Surgical [PTH] Routine Labs on day of discharge: Labs from last 24 hours 08/12/24 05:39 WBC 10.0 RBC 3.44 L Hgb 7.1 L Hct 25.0 L MCV 72.7 L MCH 20.6 L MCHC 28.4 L RDW 21.6 H Plt Count 393 H MPV 9.2 Immature Gran % (Auto) 0.6 H Neut % (Auto) 70.8 Lymph % (Auto) 13.6 L [place] % (Auto) 13.9 H Eos % (Auto) 0.8 Baso % (Auto) 0.3 Lymph # (Auto) 1.36 [place] # (Auto) 1.4 H Eos # (Auto) 0.1 Baso # (Auto) 0.0 Abs Immat Gran (auto) 0.06 H Absolute Neuts (auto) 7.1 H Absolute Nucleated RBC 0.000 Band Neutrophils % Not Reportable Nucleated RBC % 0.0 Platelet Estimate Adequate Hypochromasia 1+ Anisocytosis 1+ Target Cells 1+ Ovalocytes 1+ Schistocytes None seen Sodium 133 L Potassium 3.8 Chloride 104 Carbon Dioxide 21 L Anion Gap 8 BUN 17 Creatinine 0.90 Estim Creat Clear Calc 64 Estimated GFR > 60 Glucose 85 Calcium 8.1 L Magnesium 2.1 Total Bilirubin 0.4 AST 25 ALT 14 Alkaline Phosphatase 89 Total Protein 7.0 Albumin 3.0 L Discharge Plan Discharge Attending physician on discharge: He Taylor Consulting providers: Heath Nuñez; Juan Antonio Morgan Discharging Clinician: He Taylor Anticipated Discharge Date/Time: 08/12/24 14:17 Patient Disposition: Home, Self-Care Activity: as tolerated Diet: regular Patient Instructions: Antibiotic Form Patient Language: Citizen Of [place] Stand Alone Forms: General Discharge Information Follow-up/Referrals: Juan Antonio Morgan MD [Physician] - (F/u with Hematology as instruced ) Willi Wyatt DO [Primary Care Provider] - (F/u with PCP in 3-5 days ) Heath Nuñez MD [Physician] - (F/u with GI as instructed ) Discharge Medications: New pantoprazole [Protonix] 40 mg tablet,delayed release (DR/EC) 40 mg PO HS 30 Days Qty: 30 1RF amoxicillin-pot clavulanate 875-125 mg tablet 1 tablet PO Q12H 3 Days Qty: 6 0RF lisinopril 5 mg tablet 5 mg PO DAILY Qty: 30 0RF hydrochlorothiazide 12.5 mg tablet 12.5 mg PO DAILY 30 Days Qty: 30 0RF Continued levothyroxine [Synthroid] 137 mcg tablet 137 mcg PO DAILY Qty: 90 2RF Discontinued aspirin [Adult Low Dose Aspirin] 81 mg tablet,delayed release (DR/EC) 81 mg PO DAILY Date of admission: 08/10/24 11:21 Primary Care Provider: Willi Wyatt Admitting Provider: Kami Sy Attending physician on admission: Kami Sy Condition: Stable
[2024-08-12 16:33] LABS: Erythropoietin (EPO) 191.1 mIU/mL (2.6-18.5)
== END 2024-08-12 14:41 | disposition home or self-care (01) | DRG 803 ==
LOC: ANHED 08-09 00:41 → ANH3MEDSUR 08-09 01:40
PROVIDERS: Internal Medicine Gastroenterology; Nurse Practitioner Family; Registered Nurse; Admitting Provider Internal Medicine; Emergency Provider Emergency Medicine; PCP Internal Medicine; Visit Provider Internal Medicine
PROC: 0DJ08ZZ Inspection of Upper Intestinal Tract, Via Natural or Artificial Opening Endoscopic (ICD-10-PCS; CPT 45378; principal; 2024-08-10 14:30)
DX: D50.0 Iron deficiency anemia secondary to blood loss (chronic) (principal); E87.1 Hypo-osmolality and hyponatremia; E03.9 Hypothyroidism, unspecified; R59.0 Localized enlarged lymph nodes; K57.30 Diverticulosis of large intestine without perforation or abscess without bleeding; K29.70 Gastritis, unspecified, without bleeding; K64.8 Other hemorrhoids; Z79.82 Long term (current) use of aspirin; Z87.891 Personal history of nicotine dependence
CPT/HCPCS: 36415; 36430; 38505; 70491; 71045; 71260; 74177; 80053; 81001; 82378; 82607; 82668; 82728; 82746; 83010; 83540; 83550; 83735; 84439; 84443; 84480; 84484; 85014; 85018; 85025; 85046; 85610; 86850; 86900; 86901; 86923; 88184; 88305; 93005; 96361; 96372; 96375; 99285; A9270; G0378; J1756; J1885; J2003; J2470; J2704; J7030; J7050; J7120; P9016; Q9967

== ENCOUNTER 2024-08-26 15:13 | Outpatient (CLI) | payer MEDICARE, SELFPAY ==
--- OUTSIDE RECORDS SUMMARY | 2024-08-26 15:16 | XMS_ITS | Clinical Summary ---
Author Organization [facility] Address [address] [place] [address] Care Team Providers Care Wood Carving Lathe Operator Name Role Phone Unavailable Primary Care Provider Unavailabl e Source Comments [facility],non-owned Affiliates and Associated Physician Practices is amultiple site organization consisting of ambulatory clinics and hospital sitesin [place], [place], [place] and [place]. This disclosure is being madepursuant to the Care Everywhere program and may not contain all information available regarding this patient. Last updated 18.[facility] [employer] Encounters Date Type Department Care Team Description 08/11/2024 Lab Requisition [facility] - Pathology Lab [address] [place] [address] Geronimo Franks MD Localized enlarged lymph nodes from Last 3 Months Social History Tobacco Use Types Packs/Day Years [...] VACCINE ( - 2023-2 5 season) 2024 DEPRESSION SCREENING 05/25/2024 MEDICARE AWV CALENDAR YEAR 2024 INFLUENZA VACCINE (Season Ended) 2025 HEPATITIS B VACCINE Aged Out No longe [...] on patient's age to complete this topic Procedures Procedure Name Priority Date/Time Associated Diagnosis Comments FLOW CYTOMETRY TISSUE PANEL Routine 08/10/2024 3:12 PM CDT Localized enlarged lymph nodes from Last 3 Months Results * FLOW CYTOMETRY TISSUE PANEL (08/10/2024 3:12 PM CDT) Case Report Flow Cytometry Case: [id number] Authorizing Provider: Geronimo Franks Collected: 08/10/2024 03:12 PM MD Josse Ordering Location: [facility] - Received: 08/11/2024 02:22 PM Pathology Lab Pathologist: Montse Castrejon MD Specimen: Lymph Node 08/11/2024 4:15 PM CDT [facility] Final Diagnosis Lymph node, left axilla, flow cytometric immunophenotypic analysis: - No evidence of non-Hodgkin lymphoma - See interpretation 08/11/2024 4:15 PM CDT [facility] Flow Cytometry Interpretation Viability: 86% B-cells: polytypic, kappa:lambda ratio 2.3:1 T-cells: no immunophenotypic aberrancy detected CD4:CD8 ratio 4.1:1 A cytospin prepared from the flow cytometry specimen has been reviewed for quality compliance manager purposes. 08/11/2024 4:15 PM CDT [facility] Flow Cytometry Results Differential Result Comment Flow Cell Count /uL 6,300 Total Viability % 86.0 Lymphocytes % 92 Dim CD45 Region % 7 Monocytes % 0 Granulocytes % 1 08/11/2024 4:15 PM CDT [facility] Reason for test Localized enlarged lymph nodes 785.6 08/11/2024 4:15 PM CDT [facility] Client Specimen ID # [id number] 08/11/2024 4:15 PM CDT [facility] Number of markers 17 were performed. A-2 Flow CD10 A-4 Flow CD20 A-5 Flow CD23 A-10 Flow CD2 A-11 Flow CD3 A-12 Flow CD4 A-16 Flow CD1a A-3 Flow CD19 A-6 Flow CD34 A-7 Flow CD45 A-13 Flow CD5 A-14 Flow CD7 A-15 Flow CD8 A-17 Flow CD30 A-8 [place]+CD19+ A-9 Lambda+CD19+ 08/11/2024 4:15 PM CDT [facility] Pathologist Location at [facility] 08/11/2024 4:15 PM CDT [facility] PATHOLOGY LAB Disclaimer Test performed at [facility], [address], [place], [address]. *The established laboratory minimum viability is 70%. Values below the minimum may result in the failure to find an abnormal population of cells. This test was developed and its performance characteristics determined by the Flow Cytometry Laboratory. It has not been cleared by the [place] Food and Drug Administration (FDA). The FDA has determined that such clearance or approval is not necessary. This test is used for clinical purposes. It should not be regarded as investigational or for research. This laboratory is regulated under the Clinical Laboratory Improvement Amendments of 1998 (CLIA) as a qualified to perform high complexity clinical testing. 08/11/2024 4:15 PM CDT [facility] PATH[facility] Embedded Images 4:15 PM CDT [facility] PATHOLOGY LAB Pathology/Cytolo gy ENTIRE LYMPH NODE / Unknown 08/10/2024 3:12 PM CDT 08/11/2024 2:22 PM CDT Geronimo Franks MD LAB - PATHO LOGY/CYTOLOGY ORDERABLES [facility] PATHOLOGY LAB [facility] [facility] [place] [address], [facility] [phone] from Last 3 Months Eric Pacheco Personal/Family Self 1945
--- OUTSIDE RECORDS SUMMARY | 2024-08-26 15:16 | XMS_ITS | Encounter Summary ---
Author Organization [facility] [employer] [facility] Address [address] [place] [address] Care Team Providers Care Yarn Tester Name Role Phone Unavailable Primary Care Provider Unavailabl e Encounter Details Date Type Department Care Team (Late st Contact Info) Description 08/26/2024 2:30 PM CDT Office Visit [facility] Oncology and Hematology - [place] [address] [facility] [address] [place] [address] Juan Antonio Morgan MD [address] [employer] [address] [address] [place] [address] Chronic anemia (Primary Dx) Social History Tobacco Use Types Packs/Day Years Used Date Smoking Tobacco: Former Cigarettes 1 70.8 0 05/25/1953 - 03/25/2024 Smokeless Tobacco: Never Tobacco Cessation:Counseling Given: Not Answered Alcohol Use Standard Drinks/Week Comments Yes 0 (1 standard drink = 0.6 oz pur e alcohol) Occasionally Sex and Gender Information Value Date Recorded Sex Assigned at Not on file Legal Sex Male 4:31 PM CDT Gender Identity Not on file Sexual Orientation Not on file documented as of this encounter Last Filed Vital Signs Vital Sign Reading Time Taken Comments Blood Pressure 123/71 08/26/2024 2:00 PM CDT Pulse 91 08/26/2024 2:00 PM CDT Temperature 35.9 C (96.6 F) 08/26/2024 2:00 PM CDT Respiratory Rate 15 08/26/2024 2:00 PM CDT Oxygen Saturation 97% 08/26/2024 2:00 PM CDT Inhaled Oxygen Concentration - - Weight 82.6 kg (182 lb) 08/26/2024 2:00 PM CDT Height 182.9 cm (6') 08/26/2024 2:00 PM CDT Body Mass Index 24.68 08/26/2024 2:00 PM CDT documented in this encounter Plan of Treatment Upcoming Encounters Date Type Department Care Team (Late st Contact Info) Description 09/05/2024 4:15 PM CDT Telephone Check Up [facility] Oncology and Hematology - [place] [address] [place] [address] Juan Antonio Morgan MD [address] [facility] [address] [place] [address] Scheduled Orders Name Type Priority Associated Diagnoses Orde r Schedule CBC WITH DIFFERENTIAL Lab Stat Chronic anemia Expected: 08/26/2024, Expires: 08/26/2025 COMPREHENSIVE METABOLIC PANEL Lab Stat Chronic anemia Expected: 08/26/2024, Expires: 08/26/2025 FERRITIN Lab Routine Chronic anemia Expected: 08/26/2024, Expires: 08/26/2025 IRON, TIBC, AND PERCENT SATURATION Lab Routine Chronic anemia Expected: 08/26/2024, Expires: 08/26/2025 LACTATE DEHYDROGENASE Lab Routine Chronic anemia Expected: 08/26/2024, Expires: 08/26/2025 METHYLMALONIC ACID Lab Routine Chronic anemia Expected: 08/26/2024, Expires: 08/26/2025 TRANSFERRIN RECEPTOR TFR SOLUBLE Lab Routine Chronic anemia Expected: 08/26/2024, Expires: 08/26/2025 VITAMIN B12 AND FOLATE Lab Routine Chronic anemia Expected: 08/26/2024, Expires: 08/26/2025 PROTEIN ELECTROPHORESIS W/REFLEX,SERUM Lab Routine Chronic anemia Expected: 08/26/2024, Expires: 08/26/2025 documented as of this encounter Visit Diagnoses Diagnosis Chronic anemia- Primary Anemia, unspecified documented in this encounter
--- OUTSIDE RECORDS SUMMARY | 2024-08-26 15:16 | XMS_ITS | CONTINUITY OF CARE DOCUMENT ---
Author Name darci bejarano Address Unknown Organization [facility] Address [address] [place] [address] Phone [phone] Care Team Providers Care Concrete Engineer Name Role Phone darci bejarano Unavailable Unavailable
--- OUTSIDE RECORDS SUMMARY | 2024-08-26 15:16 | XMS_ITS | Clinical Summary ---
Author Organization [facility]ord [facility] Address [address] [place] [address] Care Team Providers Care Smoking Tobacco Packer Hand Name Role Phone Unavailable Primary Care Provider Unavailabl e Allergies Active Allergy Reactions Criticality Noted Date Comments Gawyymf-Ubk-Glx Reductase Inhibitors Other (See Comments) 08/26/2024 Gets real hot and sweaty Medications levothyroxine 137 mcg tablet Take 1 Tablet by mouth daily. 07/27/2024 Active cyclobenzaprine (FLEXERIL) 10 mg tablet Take 10 mg by mouth. 08/25/2024 Active pantoprazole (PROTONIX) 40 mg Tablet, Delayed Release (E.C.) Take 40 mg by mouth daily at bedtime. 08/12/2024 Active Active Problems No known active problems Encounters Date Type Department Care Team Description 08/26/2024 2:30 PM CDT Office Visit [facility] Oncology and Hematology - [place] [address] [facility] [address] [place] [address] Juan Antonio Morgan MD Chronic anemia (Primary Dx) from Last 3 Months Family History Medical History Relation Name Comments Diabetes Child 1 No Known Problems Father No Known Problems Mother Eye cancer Sister 1 Diabetes Sister 2 Relation Name Status Comments Child 1 Alive Child 2 Alive Father Mother Sister 1 Sister 2 Social History Tobacco Use Types Packs/Day Years [...] on file Sexual Orientation Not on file Last Filed Vital Signs Vital Sign Reading [...] Mass Index 24.68 08/26/2024 2:00 PM CDT Plan of Treatment Upcoming Encounters Date Type Department Care Team (Late st Contact Info) Description 09/05/2024 4:15 PM CDT Telephone Check Up [facility] Oncology and Hematology [facility] [address] [facility] [address] [place] [address] Juan Antonio Morgan MD [address] [facility] [address] [place] [address] Health Maintenance Due Date Last Done Comments DTAP/TDAP/TD VACCINES (1 - Tdap) 02/11/1964 Lung Cancer Screening 1995 PNEUMOCOCCAL VACCINE 50+ YEARS (1 of 1 - PCV) 02/10/19 95 ZOSTER VACCINE (1 of 2) 1995 RSV VACCINE (60+ or ) (1 - 1-dose 75+ series) 02/11/2020 INFLUENZA VACCINE (#1) 2023 [place] ([place]) Prev entative Visit/Annual Wellness Visit 05/25/2024 Insurance [facility]
--- OUTSIDE RECORDS SUMMARY | 2024-08-26 15:16 | XMS_ITS | Encounter Summary ---
Author Organization [facility] [place] [facility] Address [address] [place] [address] Care Team Providers Care Salvage Inspector Wood Parts Name Role Phone Unavailable Primary Care Provider Unavailabl e Encounter Details Date Type Department Care Team (Late st Contact Info) Description 08/11/2024 Lab Requisition [facility] - Pathology Lab [address] [place] [address] Geronimo Franks MD [address] [place] [address] Localized enlarged lymph nodes Social History Tobacco Use Types Packs/Day Years Used Date Smoking Tobacco: Never Assessed Sex and Gender Information Value Date Recorded Sex Assigned at Not on file Gender Identity Not on file Sexual Orientation Not on file documented as of this encounter Plan of Treatment Not on file documented as of this encounter Procedures Procedure Name Priority Date/Time Associated Diagnosis Comments FLOW CYTOMETRY TISSUE PANEL Routine 08/10/2024 3:12 PM CDT Localized enlarged lymph nodes documented in this encounter Results * FLOW CYTOMETRY TISSUE PANEL (08/10/2024 3:12 PM CDT) Case Report Flow Cytometry Case: [id number] Authorizing Provider: Geronimo Franks Collected: 08/10/2024 03:12 PM MD Josse Ordering Location: [facility] - Received: 08/11/2024 02:22 PM Pathology Lab [...] quality compliance manager purposes. 08/11/2024 4:15 PM [facility] PATHOLOGY LAB Flow Cytometry Results Differential Result Comment Flow Cell Count /uL 6,300 Total Viability % 86.0 Lymphocytes % 92 Dim CD45 Region % 7 Monocytes % 0 Granulocytes % 1 08/11/2024 4:15 PM [facility] PATHOLOGY LAB Reason for test Localized enlarged lymph nodes 785.6 08/11/2024 4:15 PM [facility] PATHOLOGY LAB Client Specimen ID # [id number] 08/11/2024 4:15 PM [facility] PATHOLOG[facility] LAB Number of markers 17 were performed. A-2 Flow CD10 A-4 Flow CD20 A-5 Flow CD23 A-10 Flow CD2 A-11 Flow CD3 A-12 Flow CD4 A-16 Flow CD1a A-3 Flow CD19 A-6 Flow CD34 A-7 Flow CD45 A-13 Flow CD5 A-14 Flow CD7 A-15 Flow CD8 A-17 Flow CD30 A-8 [place]+CD19+ A-9 Lambda+CD19+ 08/11/2024 4:15 PM [facility] PATHOLOGY LAB Pathologist Location at [facility] 08/11/2024 4:15 PM [facility] PATHOLOGY LAB Disclaimer Test performed at [facility], [address] [place] [address], [id number]. *The established laboratory minimum viability is 70%. [...] complexity clinical testing. 08/11/2024 4:15 PM CDT [facility] PATH[facility] Embedded Images 4:15 PM CDT [facility] Pathology/Cytolo gy ENTIRE LYMPH NODE / Unknown 08/10/2024 3:12 PM CDT 08/11/2024 2:22 PM CDT Geronimo Franks MD LAB - PATHO LOGY/CYTOLOGY ORDERABLES Performing Organization Address City/State/[facility] Co de Phone Number [facility] [address] [phone] documented in this encounter Visit Diagnoses Diagnosis Localized enlarged lymph nodes Enlargement of lymph nodes documented in this encounter
[2024-08-26 15:31] LABS: Basophils Absolute Auto 0.1 K/mm3 (0.0-0.1); Eosinophils Absolute Auto 0.2 K/mm3 (0-0.3); Eosinophils Percent Auto 1.5 % (0-4.4); Hematocrit 30.1 % (42.0-52.0); Hemoglobin 8.9 g/dL (14.0-18.0); Immature Granulocyte Absolute 0.03 K/mm3 (0.00-0.031); Immature Granulocyte Percent A 0.3 % (0-0.5); Lymphocytes Absolute Auto 2.44 K/mm3 (0.9-3.2); Lymphocytes Percent Auto 24.9 % (18.3-44.2); Mean Corpuscular HGB Conc 29.6 g/dl (32-36); Mean Corpuscular Hemoglobin 22.7 pg (26-34); Mean Corpuscular Volume 76.8 fl (80-100); Mean Platelet Volume 8.8 fl (7.4-10.4); Monocytes Percent Auto 10.1 % (2.6-8.5); Neutrophils Absolute Auto 6.1 K/mm3 (1.3-6.7); Neutrophils Percent Auto 62.2 % (45.5-73.1); Red Blood Count 3.92 M/mm3 (4.6-6.20); White Blood Count 9.8 K/mm3 (4.5-10.0)
[2024-08-26 15:33] LABS: Platelet Count Result 1079 k/mm3 (150-375)
[2024-08-26 15:36] LABS: Platelet Estimate Increased (Adequate); Schistocytes None Seen
[2024-08-26 15:38] LABS: Anisocytosis 2+; Hypochromasia 1+; Ovalocytes 1+
[2024-08-26 16:55] LABS: Alanine Aminotransferase 12 U/L (6-50); Albumin Level 4.1 g/dL (3.5-5.1); Alkaline Phosphatase 105 U/L (38-126); Anion Gap 12 mmol/L (4-12); Aspartate Amino Transferase 53 U/L (17-59); Bilirubin,Total 0.5 mg/dL (0.2-1.3); Blood Urea Nitrogen 15 mg/dL (9-20); Calcium 9.1 mg/dL (8.4-10.2); Carbon Dioxide 25 mmol/L (22-30); Chloride 100 mmol/L (98-107); Estimated Glomerular Filt Rate > 60; Glucose 103 mg/dL (65-110); Lactate Dehydrogenase 180 U/L (120-246); Potassium 4.3 mmol/L (3.4-5.0); Sodium 137 mmol/L (137-145)
[2024-08-26 17:03] LABS: Iron 41 ug/dL (49-181)
[2024-08-26 17:14] LABS: Percent Iron Saturation 13 % (20-50)
[2024-08-26 18:04] LABS: Folic Acid 9.6 ng/mL (2.76->20)
[2024-08-30 07:29] LABS: Protein, Total 7.9 g/dL (6.1-8.1)
[2024-08-30 18:54] LABS: Albumin 3.1 g/dL (3.8-4.8); Alpha 1 Globulin 0.6 g/dL (0.2-0.3); Alpha 2 Globulin 1.1 g/dL (0.5-0.9); Beta 1 Globulin 0.6 g/dL (0.4-0.6)
[2024-08-31 14:23] LABS: Soluble Transferrin Receptor 2.48 mg/L (0.76-1.76)
[2024-09-01 22:49] LABS: Methylmalonic Acid 166 nmol/L (69-390)
== END 2024-08-26 15:14 | disposition home or self-care (01) ==
LOC: ANHLAB 15:14
PROVIDERS: PCP Internal Medicine; Visit Provider Internal Medicine Hematology & Oncology
DX: D64.9 Anemia, unspecified (principal)
CPT/HCPCS: 36415; 80053; 82607; 82728; 82746; 83540; 83550; 83615; 83921; 84155; 84165; 84238; 85025

== ENCOUNTER 2024-08-29 11:32 | Outpatient (CLI) | payer MEDICARE, SELFPAY ==
--- OUTSIDE RECORDS SUMMARY | 2024-08-29 13:29 | XMS_ITS | CONTINUITY OF CARE DOCUMENT ---
Author Name darci bejarano Address Unknown Organization [facility] Address [address] [place] [address] Phone [phone] Care Team Providers Care Talent Consultant Name Role Phone darci bejarano Unavailable Unavailable
--- OUTSIDE RECORDS SUMMARY | 2024-08-29 13:29 | XMS_ITS | Encounter Summary ---
Author Organization [facility] Address [address] [place] [address] Care Team Providers Care Filter Press Pumper Name Role Phone Unavailable Primary Care Provider Unavailabl e Encounter Details Date Type Department Care Team (Late st Contact Info) Description 08/11/2024 Lab Requisition [facility] - Pathology Lab [address] [place] [address] Geronimo Franks MD [address] [place] [address] Localized enlarged lymph nodes Social History [...] PM CDT) Case Report Flow Cytometry Case: [id number] Authorizing Provider: Geronimo Franks Collected: 08/10/2024 03:12 PM MD Josse Ordering Location: [facility] - Received: 08/11/2024 02:22 PM [...] cytometry specimen has been reviewed for quality audit representative purposes. 08/11/2024 4:15 PM [facility] Flow Cytometry Results Differential Result Comment Flow Cell Count /uL 6,300 Total Viability % 86.0 Lymphocytes % 92 Dim CD45 Region % 7 Monocytes % 0 Granulocytes % 1 08/11/2024 4:15 PM [facility] Reason for test Localized enlarged lymph nodes 785.6 08/11/2024 4:15 PM [facility] Client Specimen ID # [id number] 08/11/2024 4:15 PM [facility] Number of markers 17 were performed. A-2 Flow CD10 A-4 Flow CD20 A-5 Flow CD23 A-10 Flow CD2 A-11 Flow CD3 A-12 Flow CD4 A-16 Flow CD1a A-3 Flow CD19 A-6 Flow CD34 A-7 Flow CD45 A-13 Flow CD5 A-14 Flow CD7 A-15 Flow CD8 A-17 Flow CD30 A-8 [place]+CD19+ A-9 Lambda+CD19+ 08/11/2024 4:15 PM [facility] Pathologist Location at [facility] 08/11/2024 4:15 PM [facility] Disclaimer Test performed at [facility], [address] [place] [address], [address]. *The established laboratory minimum viability is 70%. [...] complexity clinical testing. 08/11/2024 4:[address] [facility] Embedded Images 4:[address] [facility] Pathology/Cytolo gy ENTIRE LYMPH NODE / Unknown 08/10/2024 3:12 PM CDT 08/11/2024 2:22 PM CDT Geronimo Franks MD LAB - PATHO LOGY/CYTOLOGY ORDERABLES Performing Organization Address City/State/[facility] Co de Phone Number [facility] [address] [phone] documented in this encounter Visit Diagnoses Diagnosis Localized enlarged lymph nodes Enlargement of lymph nodes documented in this encounter
--- OUTSIDE RECORDS SUMMARY | 2024-08-29 13:29 | XMS_ITS | Clinical Summary ---
Author Organization [facility] Address [address] [place] [address] Care Team Providers Care Coding Compliance Specialist Name Role Phone Unavailable Primary Care Provider Unavailabl e Source Comments [facility],non-owned Affiliates and Associated Physician Practices is amultiple site organization consisting of ambulatory clinics and hospital sitesin [place], [place], [place] and [place]. This disclosure is being madepursuant to the Care Everywhere program and may not contain all information available regarding this patient. Last updated 18.[facility] [employer] Encounters Date Type Department Care Team Description 08/11/2024 Lab Requisition [facility] - Pathology Lab [address] [place] [address] Geronimo Franks MD Localized enlarged lymph nodes [...] PM CDT) Case Report Flow Cytometry Case: [id number] Authorizing Provider: Geronimo Franks Collected: 08/10/2024 03:12 PM MD Josse Ordering Location: [facility] - Received: 08/11/2024 02:22 PM Pathology Lab [...] flow cytometry specimen has been reviewed for customer quality specialist purposes. 08/11/2024 4:15 PM [facility] Flow Cytometry Results Differential Result Comment Flow Cell Count /uL 6,300 Total Viability % 86.0 Lymphocytes % 92 Dim CD45 Region % 7 Monocytes % 0 Granulocytes % 1 08/11/2024 4:15 PM [facility] Reason for test Localized enlarged lymph nodes 785.6 08/11/2024 4:15 PM [facility] Client Specimen ID # [id number] 08/11/2024 4:15 PM [facility] Number of markers 17 were performed. A-2 Flow CD10 A-4 Flow CD20 A-5 Flow CD23 A-10 Flow CD2 A-11 Flow CD3 A-12 Flow CD4 A-16 Flow CD1a A-3 Flow CD19 A-6 Flow CD34 A-7 Flow CD45 A-13 Flow CD5 A-14 Flow CD7 A-15 Flow CD8 A-17 Flow CD30 A-8 [place]+CD19+ A-9 Lambda+CD19+ 08/11/2024 4:15 PM CDT [facility] Pathologist Location at [facility] 08/11/2024 4:15 PM CDT [facility] Disclaimer Test performed at [facility], [address] [place], [place], [address]. *The established laboratory minimum viability is 70%. [...] PATHOLOGY LAB Embedded Images 4:15 PM CDT [facility] Pathology/Cytolo gy ENTIRE LYMPH NODE / Unknown 08/10/2024 3:12 PM CDT 08/11/2024 2:22 PM CDT Geronimo Franks MD LAB - PATHO LOGY/CYTOLOGY ORDERABLES [facility] [facility] [place] [address], [facility] [phone] from Last 3 Months Eric Pacheco Personal/Family Self 1945
--- OUTSIDE RECORDS SUMMARY | 2024-08-29 13:29 | XMS_ITS | Clinical Summary ---
Author Organization [facility] Anders mccord Rashad Address [address] [place] [address] Care Team Providers Care Detective Precinct Name Role Phone Unavailable Primary Care Provider Unavailabl e Allergies Active Allergy Reactions Criticality Noted Date Comments Eaxlcjh-Ump-Xva Reductase Inhibitors Other (See Comments) 08/26/2024 Gets [...] Description 08/26/2024 2:30 PM CDT Office Visit [facility] Oncology and Hematology [facility] [address] [place] [address] Juan Antonio Morgan MD Chronic anemia (Primary Dx) 08/26/2024 Orders Only [facility] Oncology and Hematology [address] [place] [address] Juan Antonio Morgan MD Essential thrombocytosis (CMS/HCC) (Primary Dx) from Last 3 Months Family [...] 09/05/2024 4:15 PM CDT Telephone Check Up [facility] Oncology and Hematology - [place] [address] [facility] [address] [place] [address] Juan Antonio Morgan MD [address] [facility] [address] [place] [address] Health Maintenance Due Date Last Done Comments DTAP/TDAP/TD VACCINES (1 - Tdap) 02/11/1964 Lung Cancer Screening 1995 PNEUMOCOCCAL VACCINE 50+ YEARS (1 of 1 - PCV) 02/10/19 95 ZOSTER VACCINE (1 of 2) 1995 RSV VACCINE (60+ or ) (1 - 1-dose 75+ series) 02/11/2020 INFLUENZA VACCINE (#1) 2023 Medicare [place]) Prev entative Visit/Annual Wellness Visit 05/25/2024 Insurance AETNA O MCR
== END 2024-08-29 11:33 | disposition home or self-care (01) ==
LOC: ANHLAB 11:32
PROVIDERS: PCP Internal Medicine; Visit Provider Internal Medicine Hematology & Oncology
DX: D47.3 Essential (hemorrhagic) thrombocythemia (principal)
CPT/HCPCS: 36415; 81270

== ENCOUNTER 2024-09-19 05:43 | Outpatient (CLI) | payer MEDICARE, SELFPAY ==
--- OUTSIDE RECORDS SUMMARY | 2024-09-19 05:46 | XMS_ITS | Encounter Summary ---
Author Organization [facility] Address [address] [place] [address] Care Team Providers Care Cleaning Specialist Name Role Phone Unavailable Primary Care Provider Unavailabl e Encounter Details Date Type Department Care Team (Late st Contact Info) Description 08/11/2024 Lab Requisition [facility] - Pathology Lab [address] [place] [address] Geronimo Franks MD [address] [place] [address] Localized enlarged lymph nodes Social History Tobacco Use Types Packs/Day Years Used Date Smoking Tobacco: Never Assessed Sex and Gender Information Value Date Recorded Sex Assigned at Not on file 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 Gender Identity Not on file Sexual Orientation [...] PM CDT) Case Report Flow Cytometry Case: [id number] Authorizing Provider: Geronimo Franks Collected: 08/10/2024 03:12 PM MD Josse Ordering Location: [facility] - Received: 08/11/2024 02:22 PM Pathology Lab Pathologist: Montse Castrejon MD Specimen: Lymph Node 08/11/2024 4:15 PM CDT [facility] Final Diagnosis Lymph node, left axilla, flow cytometric immunophenotypic analysis: - No evidence of non-Hodgkin lymphoma - See interpretation 08/11/2024 4:15 PM [facility] Flow Cytometry Interpretation Viability: 86% B-cells: polytypic, kappa:lambda ratio 2.3:1 T-cells: no immunophenotypic aberrancy detected CD4:CD8 ratio 4.1:1 A cytospin prepared from the flow cytometry specimen has been reviewed for quality lab assoc purposes. 08/11/2024 4:15 PM [facility] Flow Cytometry Results Differential Result Comment Flow Cell Count /uL 6,300 Total Viability % 86.0 Lymphocytes % 92 Dim CD45 Region % 7 Monocytes % 0 Granulocytes % 1 08/11/2024 4:15 PM [facility] Reason for test Localized enlarged lymph nodes 785.6 08/11/2024 4:15 PM [facility] Client Specimen ID # [id number] 08/11/2024 4:15 PM [facility] Number of markers 17 were performed. A-2 Flow CD10 A-4 Flow CD20 A-5 Flow CD23 A-10 Flow CD2 A-11 Flow CD3 A-12 Flow CD4 A-16 Flow CD1a A-3 Flow CD19 A-6 Flow CD34 A-7 Flow CD45 A-13 Flow CD5 A-14 Flow CD7 A-15 Flow CD8 A-17 Flow CD30 A-8 [place]+CD19+ A-9 Lambda+CD19+ 08/11/2024 4:15 PM [facility] Pathologist Location at [facility] 08/11/2024 4:15 PM [facility] Disclaimer Test performed at [facility], [address] [place] [address], [address]. *The established laboratory minimum viability is 70%. [...] complexity clinical testing. 08/11/2024 4:15 PM CDT [facility] Embedded Images 4:15 PM CDT [facility] Pathology/Cytolo gy ENTIRE LYMPH NODE / Unknown 08/10/2024 3:12 PM CDT 08/11/2024 2:22 PM CDT Geronimo Franks MD LAB - PATHOLOGY/CYT OLOGY ORDERABLES Final Result Performing Organization Address City/State/[facility] Co de Phone Number [facility] [address] [phone] documented in this encounter Visit Diagnoses Diagnosis Localized enlarged lymph nodes Enlargement of lymph nodes documented in this encounter
--- OUTSIDE RECORDS SUMMARY | 2024-09-19 05:47 | XMS_ITS | Clinical Summary ---
Author Organization [facility] Address [address] [place] [address] Care Team Providers Care Animal Anatomist Name Role Phone Unavailable Primary Care Provider Unavailabl e Source Comments [facility],non-owned Affiliates and Associated Physician Practices is amultiple site organization consisting of ambulatory clinics and hospital sitesin [place], [place], [place] and [place]. This disclosure is being madepursuant to the Care Everywhere program and may not contain all information available regarding this patient. 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 08/11/2024 4:15 PM CDT [facility] Flow Cytometry Results Differential Result Comment Flow Cell Count /uL 6,300 Total Viability % 86.0 Lymphocytes % 92 Dim CD45 Region % 7 Monocytes % 0 Granulocytes % 1 08/11/2024 4:15 PM [facility]T [facility] Reason for test Localized enlarged lymph nodes 785.6 08/11/2024 4:15 PM [facility]T [facility] Client Specimen ID # [id number] 08/11/2024 4:15 PM [facility]T [facility] Number of markers 17 were performed. A-2 Flow CD10 A-4 Flow CD20 A-5 Flow CD23 A-10 Flow CD2 A-11 Flow CD3 A-12 Flow CD4 A-16 Flow CD1a A-3 Flow CD19 A-6 Flow CD34 A-7 Flow CD45 A-13 Flow CD5 A-14 Flow CD7 A-15 Flow CD8 A-17 Flow CD30 A-8 [place]+CD19+ A-9 Lambda+CD19+ 08/11/2024 4:15 PM CDT [facility] Pathologist Location at [facility] 08/11/2024 4:15 PM CDT [facility] Disclaimer Test performed at [facility], [address] [place] [address], [address]. *The established laboratory minimum viability is 70%. [...] complexity clinical testing. 08/11/2024 4:15 PM CDT [facility] Embedded Images 4:15 PM CDT [facility] Pathology/Cytolo gy ENTIRE LYMPH NODE / Unknown 08/10/2024 3:12 PM CDT 08/11/2024 2:22 PM CDT Geronimo Franks MD LAB - PATHOLOGY/CYT OLOGY ORDERABLES Final Result [facility] [address] [place] [address]. [place] [address], [facility] [phone] from Last 3 Months Insurance [employer] MEDICARE ADV SELF PAY NO INSURANCE Member Subscriber Plan / Payer (Ef fective for All Dates) Name:Sabino Pacheco Member ID:Not on file Relation to Subscriber:Not on file Name:JOSEFINASABINO Subscriber ID:Not on file (Home) Address: [address] [place] [id number] Payer ID:Not on file Group ID:Not on file Type:Self Pay Address: [place], [place]
--- OUTSIDE RECORDS SUMMARY | 2024-09-19 05:47 | XMS_ITS | CONTINUITY OF CARE DOCUMENT ---
Author Name darci bejarano Address Unknown Organization [facility] Address [address] [facility] [address] [place] [address] Phone [phone] Care Team Providers Care Correctional Classification Counselor Name Role Phone darci bejarano Unavailable Unavailable
--- OUTSIDE RECORDS SUMMARY | 2024-09-19 05:47 | XMS_ITS | Clinical Summary ---
Author Organization [facility] Anders mccord Rashad Address [address] [place] [address] Care Team Providers Care Assembly Worker Name Role Phone Unavailable Primary Care Provider Unavailabl e Allergies Active Allergy Reactions Criticality Noted Date Comments Gbdwaid-Sfj-Ouc Reductase Inhibitors Other (See Comments) 08/26/2024 Gets [...] Encounters Date Type Department Care Team Description 09/05/2024 4:15 PM CDT Telephone Check Up [facility] Oncology and Hematology - [place] [address] [place] [address] Juan Antonio Morgan MD Chronic anemia (Primary Dx) 09/05/2024 Orders Only [facility] Oncology and Hematology - [place] [address] [place] [address] Juan Antonio Morgan MD 09/02/2024 Abstract [facility] Oncology and Hematology - [place] [address] [place] [address] Juan Antonio Morgan MD 08/30/2024 External Device Data [facility] ABSTRACTION Provider, Abstract 08/30/2024 External Device Data [facility] ABSTRACTION Provider, Abstract 08/30/2024 External Device Data [facility] ABSTRACTION Provider, Abstract 08/30/2024 Orders Only [facility] Oncology and Hematology - [place] [address] [place] [address] Juan Antonio Morgan MD 08/29/2024 Orders Only [facility] Oncology and Hematology [address] [place] [address] Juan Antonio Morgan MD 08/26/2024 2:30 PM CDT Office Visit [facility] Oncology and Hematology - [place] [address] [place] [address] Juan Antonio Morgan MD Chronic anemia (Primary Dx) 08/26/2024 Orders Only [facility] Oncology and Hematology - [place] [address] [place] [address] Juan Antonio Morgan MD Essential thrombocytosis (CMS/HCC) [...] Care Team (Late st Contact Info) Description 11/03/2024 9:45 AM CDT Office Visit [facility] Oncology and Hematology - [place] [address] [facility] [address] [place] [address] Juan Antonio Morgan MD [address] [facility] [address] [place] [address] Health Maintenance Due Date Last Done Comments DTAP/TDAP/TD VACCINES (1 - Tdap) 02/11/1964 Lung Cancer Screening 1995 PNEUMOCOCCAL VACCINE 50+ YEARS (1 of 1 - PCV) 02/10/19 95 ZOSTER VACCINE (1 of 2) 1995 RSV VACCINE (60+ or ) (1 - 1-dose 75+ series) 02/11/2020 INFLUENZA VACCINE (#1) 2023 Procedures Procedure Name Priority Date/Time Associated Diagnosis Comments COMPREHENSIVE METABOLIC PANEL Routine 08/26/2024 3:03 PM CDT COMPREHENSIVE METABOLIC PANEL Routine 08/26/2024 12:01 PM CDT CBC WITH AUTODIFFERENTIAL Routine 2024 11:59 AM CDT METHYLMALONIC ACID Routine 08/26/2024 11 :41 AM CDT from Last 3 Months Results * COMPREHENSIVE METABOLIC PANEL (08/26/2024 3:03 PM CDT) Only the most recent of2 resultswithin the time period is included. Blood us Juan Antonio Morgan MD CHEMISTRY ORDERABLES Final Resu lt * CBC WITH AUTODIFFERENTIAL (08/26/2024 11:59 AM CDT) Blood Juan Antonio Morgan MD HEMATOLOGY ORDERABLES Final Res ult * METHYLMALONIC ACID (08/26/2024 11:41 AM CDT) Blood us Juan Antonio Morgan MD CHEMISTRY ORDERABLES Final Resu lt from Last 3 Months Insurance [facility]
[2024-09-19] MEDS: SIMETHICONE ORAL SUSPENSION 20 MG/0.3 ML 30 ML BOTTLE 0.6 ML IRRIGATION (06:56)
--- NOTE | 2024-09-19 06:56 | SUR.PREOP ---
Patient brought to GI Lab. Instructions for patient undergoing Capsule Endoscopy reviewed with patient. Consent form signed. Sensor array applied to patient's abdomen and connected to recorded. Patient swallowed capsule with 12 ozs of water infused with Simethicone. Patient instructed they may have clear liquids at 0815 this AM and eat or drink at 1015 this AM. Patient instructed to return to GI Lab at 1500 this afternoon for removal of recording device and to call [phone] or to return to the hospital if any nausea and vomiting or abdominal pain is experienced.
--- NOTE | 2024-09-19 15:22 | SUR.OPER ---
Patient returned to the GI Lab at 1500 for recorder box removal. Patient voiced no complaints. States they have understanding of instructions. Patient left ambulatory. recorder downloaded Dr Eastman notified via text.
== END 2024-09-19 05:44 | disposition home or self-care (01) ==
PROVIDERS: PCP Internal Medicine; Referring Provider Internal Medicine Gastroenterology; Visit Provider Internal Medicine Gastroenterology
PROC: 0DJ07ZZ Inspection of Upper Intestinal Tract, Via Natural or Artificial Opening (ICD-10-PCS; CPT 91110; principal; 2024-09-19 07:00)
DX: D50.0 Iron deficiency anemia secondary to blood loss (chronic) (principal); Z13.810 Encounter for screening for upper gastrointestinal disorder
CPT/HCPCS: 91110

== ENCOUNTER 2024-10-06 06:57 | Emergency (ER) | payer MEDICARE, SELFPAY ==
--- NOTE | ~2024-10-06 | CT_ITS ---
EXAMINATION: CT thoracic lumbar wo con DATE: 10/06/2024 08:18 INDICATION: Electric shock sensation from the neck to the feet. TECHNIQUE: Computed tomography (CT) of the thoracic and lumbar spine was performed without intravenou s contrast. Automated exposure control and iterative reconstruction technique were employed. The dose -length product was 1693.93 mGy-cm. COMPARISON: None FINDINGS: Thoracic spine: Alignment is normal. There is chronic mild anterior wedging of multiple mid to lower thoracic vertebr al bodies. There are also multiple Schmorl's nodes involving the majority the endplates from the infe rior endplate of T3 through the mid lumbar spine. No acute fractures. Moderate to severe disc height loss at T5-T6, moderate disc height loss at the remaining levels from T3-T4 through T7-T8 and mild di sc height loss at remaining thoracic levels. Very small central endplate osteophytes resulting in min imal central canal stenosis at T5-T6, T6-T7 and T7-T8. Multilevel mild facet osteoarthritis throughou t the thoracic spine. No significant neural foraminal stenosis. Mild to moderate emphysema in the vis ualized lungs. Calcified right upper lobe nodule consistent with old granulomatous disease. Mild depe ndent atelectasis in the bilateral lower lobes. There is also likely chronic fibrosis at the posterio r medial right lower lobe along side multiple endplate osteophytes bladder consistent with diffuse id iopathic skeletal hyperostosis (DISH). Lumbar spine: Mild S-shaped scoliosis of the lumbar spine with 10 degree upper lumbar dextrocurvature and 10 degree lower lumbar levocurvature. Additional chronic appearing mild anterior wedging at L1 and L2. No acut e fracture. Moderate to severe diffuse disc height loss at L3-L4 and right-sided predominant disc hei ght loss at L4-L5. Moderate disc height loss at and L2-L3 and with left-sided prominence at L2 and L2 . Mild disc height loss at L5-S1. Disc bulges resulting in mild central canal stenosis from L1-L2 thr ough L5-S1. Multilevel moderate to severe lumbar facet osteoarthritis. There is mild left-sided and m oderate right-sided neural foraminal stenosis at L5-S1 and and moderate neural from stenosis bilatera lly at L1-L2 through L4-L5. Moderate bilateral sacral iliac osteoarthritis with developing ankylosis. There are couple 2 mm nonobstructing left renal stones. There is a large left renal cyst measuring a t least 7.5 cm in diameter which extends beyond the margin of imaging. IMPRESSION: 1. Severe lumbar and moderate to severe thoracic spondylosis with no acute osseous abnormality. Reviewed, dictated and finalized at location A. IMPRESSION: 1. Severe lumbar and moderate to severe thoracic spondylosis with no acute osse ous abnormality.
--- NOTE | ~2024-10-06 | CT_ITS ---
EXAMINATION: CTA BRAIN/CAROTID DATE: 10/06/2024 08:18 INDICATION: Electric shock sensation extending from the neck to the feet TECHNIQUE: Computed tomographic angiography (CTA) of the head and neck was performed with 100 mL Omni paque-350 intravenous contrast. Multiplanar reconstructions and maximum intensity projection 3D-recon structions of the carotid arteries and of the intracranial arteries were created by the technologist on a separate workstation. Precontrast CT of the head was also obtained. Automated exposure control and iterative reconstruction technique were employed.The dose-length product was 1759.67 mGy-cm. COMPARISON: None. FINDINGS: Carotid arteries: Aortic arch and the great vessels arising from the arch are normal in caliber with scattered small am ounts of nonhemodynamically significant atherosclerotic plaque and no dissection. There is atheroscle rotic plaque with 0% stenosis of the right left carotid bulbs relative to normal distal artery lumen diameter (NASCET criteria). Prominent ostial lysis and destructive changes involving the C1 and C2 which appears centered at the articulation of the left-sided lateral masses of C1 and C2 and at the articulation of the dens with t he ring of C1. There is a pathologic fracture across the base of the dens. There is marked erosion of the anterior ring of C1 but without definitive fracture. There is a 6 mm leftward and anterior displ acement of C2 relative to the ring of C1. There is prominent surrounding soft tissue swelling with pe ripheral enhancement surrounding a fluid flexion containing multiple bone fragments surrounding the r egion of ostial lysis which extends into the retropharyngeal space and the posterior paracervical mus culature. Appearance favors septic arthritis with abscess and associated osteomyelitis over malignanc y. There is segmental occlusion of the left vertebral artery where it extends through this region. Mo derate to severe spondylosis and more caudal cervical spine. Mild to moderate emphysema in the upper lungs. Head: No acute intracranial hemorrhage, acute infarction or abnormal extra axial fluid collection. There is mild scattered white matter hypoattenuation consistent with chronic small vessel ischemic disease. Ventricles are normal and symmetric. No mass/mass effect. No abnormally enhancing brain lesions on po stcontrast imaging. Changes of right intraocular lens replacement. The orbits, paranasal sinuses and mastoid air cells are normal. Intracranial arteries Vertebral arteries are codominant. Atherosclerotic calcifications without hemodynamically significant stenosis at the bilateral carotid bulbs. There is no hemodynamically significant stenosis in the gelacio tebral, basilar and internal carotid arteries. Both A1 and P1 segments are patent. There are also pat ent bilateral posterior communicating arteries, diminutive on the left. There are no aneurysms identi fied. Cerebral arterial arborization appears symmetric. IMPRESSION: 1. Destructive changes at the anterior and left sides of C1 and C2 with surrounding fluid, enhancemen t and osseous debris most likely related to aseptic arthritis at the articulation of the lateral mass es of C1 and C2 and secondary osteitis and surrounding abscess formation extending into the retrophar yngeal space. Malignancy considered significantly less likely. 2. Pathologic fracture across the base of the dens. The anterior ring of C1 is markedly attenuated an d at significant risk of pathologic fracture. 3. Associated complete segmental occlusion of the left vertebral artery at the level C1 and C2. This and the above 2 findings including the pathologic fracture of the odontoid process and recommendation for cervical stabilization were discussed with Dr. Ochoa at 8:35 AM. 4. Small amount of atherosclerotic plaque with 0% stenosis of the right left carotid bulbs relative t o normal distal artery lumen diameter (NASCET criteria). 5. Normal aging brain with mild scattered white matter hypoattenuation consistent with chronic small vessel ischemic disease. No acute intracranial process or abnormally enhancing brain lesions. Reviewed, dictated and finalized at location A. IMPRESSION: 1. Destructive changes at the anterior and left sides of C1 and C2 with surroun ding fluid, enhancement and osseous debris most likely related to aseptic arthr itis at the articulation of the lateral masses of C1 and C2 and secondary ostei tis and surrounding abscess formation extending into the retropharyngeal space. Malignancy considered significantly less likely. 2. Pathologic fracture across the base of the dens. The anterior ring of C1 is markedly attenuated and at significant risk of pathologic fracture. 3. Associated complete segmental occlusion of the left vertebral artery at the level C1 and C2. This and the above 2 findings including the pathologic fractur e of the odontoid process and recommendation for cervical stabilization were di scussed with Dr. Ochoa at 8:35 AM. 4. Small amount of atherosclerotic plaque with 0% stenosis of the right left ca rotid bulbs relative to normal distal artery lumen diameter (NASCET criteria). 5. Normal aging brain with mild scattered white matter hypoattenuation consiste nt with chronic small vessel ischemic disease. No acute intracranial process or abnormally enhancing brain lesions.
[2024-10-06 06:51] VITALS: BP 134/72; PULSE 101; RESP 19; TEMP 36.8; O2SAT 98
[2024-10-06 07:11] VITALS: RESP 19; O2SAT 97
[2024-10-06 07:14] VITALS: BP 118/65; PULSE 92; RESP 19; O2SAT 96
[2024-10-06 07:24] LABS: Basophils Percent Auto 0.3 % (0.2-1.2); Eosinophils Percent Auto 0.2 % (0-4.4); Hemoglobin 9.8 g/dL (14.0-18.0); Immature Granulocyte Absolute 0.06 K/mm3 (0.00-0.031); Immature Granulocyte Percent A 0.5 % (0-0.5); Lymphocytes Absolute Auto 0.91 K/mm3 (0.9-3.2); Lymphocytes Percent Auto 7.6 % (18.3-44.2); Mean Corpuscular HGB Conc 29.7 g/dl (32-36); Mean Corpuscular Hemoglobin 24.7 pg (26-34); Mean Corpuscular Volume 83.1 fl (80-100); Mean Platelet Volume 8.6 fl (7.4-10.4); Monocytes Absolute Auto 1.4 K/mm3 (0.1-0.6); Monocytes Percent Auto 11.7 % (2.6-8.5); Neutrophils Absolute Auto 9.6 K/mm3 (1.3-6.7); Neutrophils Percent Auto 79.7 % (45.5-73.1); Platelet Count Result 634 k/mm3 (150-375); Red Blood Count 3.97 M/mm3 (4.6-6.20); Red Cell Distribution Width 23.8 % (11.5-14.5)
--- OUTSIDE RECORDS SUMMARY | 2024-10-06 07:24 | XMS_ITS | Clinical Summary ---
Author Organization [facility] Anders mccord Rashad Address [address] [place] [address] Care Team Providers Care Computer Repairer Name Role Phone Unavailable Primary Care Provider Unavailabl e Allergies Active Allergy Reactions Criticality Noted Date Comments Uvresaj-Rky-Nhf Reductase Inhibitors Other (See Comments) 08/26/2024 Gets [...] 09/05/2024 4:15 PM CDT Telephone Check Up [facility] Oncology and Hematology - [place] [address] [place] [address] Juan Antonio Morgan MD Chronic anemia (Primary Dx) 09/05/2024 Orders Only [facility] Oncology and Hematology - [place] [address] [place] [address] Juan Antonio Morgan MD 09/02/2024 Abstract [facility] Oncology and Hematology - [place] [address] [place] [address] Juan Antonio Morgan MD 08/30/2024 External Device Data [facility] ABSTRACTION Provider, Abstract 08/30/2024 External Device Data [facility] ABSTRACTION Provider, Abstract 08/30/2024 External Device Data [facility] ABSTRACTION Provider, Abstract 08/30/2024 Orders Only [facility] Oncology and Hematology - [place] [address] [place] [address] Juan Antonio Morgan MD 08/29/2024 Orders Only [facility] Oncology and Hematology [address] [place] [address] Juan Antonio Morgan MD 08/26/2024 2:30 PM CDT Office Visit [facility] Oncology and Hematology - [place] [address] [place] [address] Juan Antonio Morgan MD Chronic anemia (Primary Dx) 08/26/2024 Orders Only [facility] Oncology and Hematology - [place] [address] [place] [address] Juan Antonio Morgan MD Essential thrombocytosis (CMS/HCC) [...] Description 11/03/2024 9:45 AM CDT Office Visit [facility] Oncology and Hematology - [place] [address] [facility] [address] [place] [address] Juan Antonio Morgan MD [address] [facility] [address] [place] [address] Health Maintenance Due Date Last [...] lt from Last 3 Months Insurance [facility] Address: [facility] [address] [place] [address]
--- OUTSIDE RECORDS SUMMARY | 2024-10-06 07:24 | XMS_ITS | Clinical Summary ---
Author Organization [facility] Address [address] [place] [address] Care Team Providers Care Physicians And Surgeons Name Role Phone Unavailable Primary Care Provider Unavailabl e Source Comments [facility],non-owned Affiliates and Associated Physician Practices is amultiple site organization consisting of ambulatory clinics and hospital sitesin [place], [place], [place] and [place]. This disclosure is being madepursuant to the Care Everywhere program and may not contain all information available regarding this patient. 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 08/11/2024 4:15 PM CDT [facility] Flow Cytometry Results Differential Result Comment Flow Cell Count /uL 6,300 Total Viability % 86.0 Lymphocytes % 92 Dim CD45 Region % 7 Monocytes % 0 Granulocytes % 1 08/11/2024 4:15 PM CDT [facility] Reason for test Localized enlarged lymph nodes 785.6 08/11/2024 4:15 PM CDT [facility] Client Specimen ID # [id number] 08/11/2024 4:15 PM CDT [facility] Number of markers 17 were performed. A-2 Flow CD10 A-4 Flow CD20 A-5 Flow CD23 A-10 Flow CD2 A-11 Flow CD3 A-12 Flow CD4 A-16 Flow CD1a A-3 Flow CD19 A-6 Flow CD34 A-7 Flow CD45 A-13 Flow CD5 A-14 Flow CD7 A-15 Flow CD8 A-17 Flow CD30 A-8 [place]+CD19+ A-9 Lambda+CD19+ 08/11/2024 4:15 PM CDT [facility] Pathologist Location at [facility] 08/11/2024 4:15 PM CDT [facility] Disclaimer Test performed at [facility], [address] [place] [address], [id number]. *The established laboratory minimum viability is 70%. [...] complexity clinical testing. 08/11/2024 4:15 PM CDT [facility] PATH[facility] Embedded Images 4:15 PM CDT [facility] PATH[facility] Pathology/Cytolo gy ENTIRE LYMPH NODE / Unknown 08/10/2024 3:12 PM CDT 08/11/2024 2:22 PM CDT Geronimo Franks MD LAB - PATHOLOGY/CYT OLOGY ORDERABLES Final Result [facility] PATH[facility] LAB [address] [place] [address]. [place] [address], [facility] [phone] from Last 3 Months Insurance [employer] MEDICARE ADV SELF PAY NO INSURANCE Member Subscriber Plan / Payer (Ef fective for All Dates) Name:Sabino Pacheco Member ID:Not on file Relation to Subscriber:Not on file Name:JOSEFINASABINO Subscriber ID:Not on file (Home) Address: [address] [place] [id number] Payer ID:Not on file Group ID:Not on file Type:Self Pay Address: [place], [place]
--- OUTSIDE RECORDS SUMMARY | 2024-10-06 07:24 | XMS_ITS | Encounter Summary ---
Author Organization [facility] Address [address] [place] [address] Care Team Providers Care Overcaster Name Role Phone Unavailable Primary Care Provider Unavailabl e Encounter Details Date Type Department Care Team (Late st Contact Info) Description 08/11/2024 Lab Requisition [facility] - Pathology Lab [address] [place] [address] Geronimo Franks MD [address] [place] [id number] Localized enlarged lymph nodes Social History Tobacco Use Types Packs/Day Years Used Date Smoking Tobacco: Never Assessed Sex and Gender Information Value Date Recorded Sex Assigned at Not on file 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 Gender Identity Not on file Sexual Orientation [...] PM CDT) Case Report Flow Cytometry Case: [id number] Authorizing Provider: Geronimo Franks Collected: 08/10/2024 03:12 PM MD Josse Ordering Location: [facility] - Received: 08/11/2024 02:22 PM Pathology Lab Pathologist: Montse Castrejon MD Specimen: Lymph Node 08/11/2024 4:15 PM CDT [facility] Final Diagnosis Lymph node, left axilla, flow cytometric immunophenotypic analysis: - No evidence of non-Hodgkin lymphoma - See interpretation 08/11/2024 4:15 PM [facility] PATH[facility] Flow Cytometry Interpretation Viability: 86% B-cells: polytypic, kappa:lambda ratio 2.3:1 T-cells: no immunophenotypic aberrancy detected CD4:CD8 ratio 4.1:1 A cytospin prepared from the flow cytometry specimen has been reviewed for head of quality purposes. 08/11/2024 4:15 PM [facility] PATHOLOGY LAB Flow Cytometry Results Differential Result Comment Flow Cell Count /uL 6,300 Total Viability % 86.0 Lymphocytes % 92 Dim CD45 Region % 7 Monocytes % 0 Granulocytes % 1 08/11/2024 4:15 PM [facility] PATH[facility] Reason for test Localized enlarged lymph nodes 785.6 08/11/2024 4:15 PM [facility] PATH[facility] Client Specimen ID # [id number] 08/11/2024 4:15 PM [facility] PATH[facility] Number of markers 17 were performed. A-2 Flow CD10 A-4 Flow CD20 A-5 Flow CD23 A-10 Flow CD2 A-11 Flow CD3 A-12 Flow CD4 A-16 Flow CD1a A-3 Flow CD19 A-6 Flow CD34 A-7 Flow CD45 A-13 Flow CD5 A-14 Flow CD7 A-15 Flow CD8 A-17 Flow CD30 A-8 [place]+CD19+ A-9 Lambda+CD19+ 08/11/2024 4:15 PM [facility] PATH[facility] LAB Pathologist Location at [facility] 08/11/2024 4:15 PM [facility] PATH[facility] LAB Disclaimer Test performed at [facility], [address] [place] [address], [id number]. *The established laboratory minimum viability is 70%. [...] complexity clinical testing. 08/11/2024 4:15 PM CDT [facility] PATHOLOG[facility] LAB Embedded Images 4:15 PM CDT [facility] PATH[facility] Pathology/Cytolo gy ENTIRE LYMPH NODE / Unknown 08/10/2024 3:12 PM CDT 08/11/2024 2:22 PM CDT Geronimo Franks MD LAB - PATHOLOGY/CYT OLOGY ORDERABLES Final Result Performing Organization Address City/State/[facility] Co de Phone Number [facility] PATHOLOGY LAB [address] [phone] documented in this encounter Visit Diagnoses Diagnosis Localized enlarged lymph nodes Enlargement of lymph nodes documented in this encounter
[2024-10-06 07:40] LABS: Alanine Aminotransferase 21 U/L (6-50); Albumin Level 3.6 g/dL (3.5-5.1); Alkaline Phosphatase 89 U/L (38-126); Anion Gap 13 mmol/L (4-12); Aspartate Amino Transferase 34 U/L (17-59); Bilirubin,Total 0.4 mg/dL (0.2-1.3); Blood Urea Nitrogen 17 mg/dL (9-20); Calcium 8.9 mg/dL (8.4-10.2); Carbon Dioxide 23 mmol/L (22-30); Chloride 101 mmol/L (98-107); Estimated CRCL calculation 59 ml/min; Estimated Glomerular Filt Rate > 60; Glucose 135 mg/dL (65-110); Potassium 3.6 mmol/L (3.4-5.0); Sodium 137 mmol/L (137-145)
[2024-10-06] MEDS: diazePAM INJ (*CRX) 10 MG/2 ML SYRINGE 5 MG IV PUSH (07:43)
[2024-10-06 07:52] VITALS: BP 138/72; PULSE 88; RESP 20; O2SAT 96
--- NOTE | 2024-10-06 07:56 | ED.GENADULT ---
HPI - General Adult General Chief complaint: Unspecified Stated complaint: pain from feet to head Time Seen by Provider: 10/06/24 07:03 History of Present Illness HPI narrative: Patient has been having neck pain for months, has seen chiropractor with neck manipulation recently, had also used vibrating device(?), still has pain, especially with trying to move head to the left. This morning trying to get out of bed was quite difficult and he felt a sudden electric shock like sensation that went all the way down to his feet. Related Data Home Medications Medication Instructions Recorded Confirmed Last Taken Type vit 112-iron 3.33 1 tablet PO BID 09/12/24 09/12/24 Unknown History mg-folate 0.33 gj-[id number]-[id number]-zbg-rod chew tablet (Vitafol Gummies) Allergies Allergy/AdvReac Type Severity Reaction Status Date / Time Fcycpqb-OCD-QqQ Reductase AdvReac Intermediate Nausea Verified 09/14/24 10:45 Inhibitor (Mrkpctq-Fzl-Ucd Reductase Inhibitor) [facility] Past Medical History Medical History Hyponatremia Neck pain Lymph nodes enlarged BMI 27.0-27.9,adult Hypertension entered incorrectly Surgical History Surgical History Status post fusion of wrist Family History Family History Father Cerebrovascular accident Sibling Family history of diabetes mellitus in first degree relative Patient's brother is Mother No problems noted. Other Family history of arthritis Social History Social History Smoking packs per day: 1 Smoking cigarettes per day: 20.0 Years smoked: 50 Smoking pack-years: 50.00 Smoking status: Former smoker Tobacco type: cigarettes Second hand tobacco smoke exposure: Yes Alcohol intake: current Alcohol use details: Social Substance use: never Substance use type: does not use Do You Feel Safe in your Home?: Yes Lack of Transportation: No Lack of Food: Never True Current Housing: I Have Housing Concerned About Future Housing: No Difficulty Paying Gas/Electric Bills: No Difficulty Paying for Meds: No Currently Unemployed: No Education: High School Diploma/GED Difficulty w/ Childcare or Family Care: No Living arrangements: alone Occupation/Education: retired Additional occupation/education comments: [employer] Gender identity (if verbalized by the patient): Male Spiritual care concerns: No Course Vital Signs Vital signs: Vital Signs Temperature 98.2 F 10/06/24 06:51 Pulse Rate 101 H 10/06/24 06:51 Respiratory Rate 19 10/06/24 06:51 Blood Pressure 134/72 10/06/24 06:51 Pulse Oximetry 98 10/06/24 06:51 Oxygen Delivery Room Air 10/06/24 06:51 Temperature 98.2 F 10/06/24 06:51 Pulse Rate 82 10/06/24 09:20 Respiratory Rate 20 10/06/24 09:20 Blood Pressure 143/55 H 10/06/24 09:20 Pulse Oximetry 98 10/06/24 09:20 Oxygen Delivery Room Air 10/06/24 06:51 Medical Decision Making MDM Narrative Medical decision making narrative: Patient has been having neck pain for months, has seen chiropractor with neck manipulation recently, had also used vibrating device(?), still has pain, especially with trying to move head to the left. This morning trying to get out of bed was quite difficult and he felt a sudden electric shock like sensation that went all the way down to his feet. 1) Differential diagnosis: stroke, fracture, radiculopathy 2) Comorbidities: ?malignancy?, thyroid issue 3) External notes reviewed: admission records 4) History sources independently obtained from: son at bedside 5) Discussion of management with: 6) Independent interpretation of: 7) Diagnostic tests or therapies considered but not ordered: 8) Social determinants of health: 9) Shared decision making: I was called at 8:20 by radiologist for neck fracture dens, likely osteo vs malignancy throughout neck, occluded vertebral artery. Patient immediately placed in [place] collar, patient and family member updated, they would like to [place] for transfer, discussed with [facility] transfer Center, Dr. Leiva ER accepts patient ER to ER transfer. Vital Signs Vital Signs: Vital Signs Temperature 98.2 F 10/06/24 06:51 Pulse Rate 101 H 10/06/24 06:51 Respiratory Rate 19 10/06/24 06:51 Blood Pressure 134/72 10/06/24 06:51 Pulse Oximetry 98 10/06/24 06:51 Oxygen Delivery Room Air 10/06/24 06:51 Temperature 98.2 F 10/06/24 06:51 Pulse Rate 82 10/06/24 09:20 Respiratory Rate 20 10/06/24 09:20 Blood Pressure 143/55 H 10/06/24 09:20 Pulse Oximetry 98 10/06/24 09:20 Oxygen Delivery Room Air 10/06/24 06:51 Lab Data 10/06/24 07:15 10/06/24 07:15 Labs: Lab Results 10/06/24 Range/Units 07:15 WBC 12.0 H (4.5-10.0) K/mm3 RBC 3.97 L (4.6-6.20) M/mm3 Hgb 9.8 L (14.0-18.0) g/dL Hct 33.0 L (42.0-52.0) % MCV 83.1 (80-100) fl MCH 24.7 L (26-34) pg MCHC 29.7 L (32-36) g/dl RDW 23.8 H (11.5-14.5) % Plt Count 634 H (150-375) k/mm3 MPV 8.6 (7.4-10.4) fl Immature Gran % (Auto) 0.5 (0-0.5) % Neut % (Auto) 79.7 H (45.5-73.1) % Lymph % (Auto) 7.6 L (18.3-44.2) % [place] % (Auto) 11.7 H (2.6-8.5) % Eos % (Auto) 0.2 (0-4.4) % Baso % (Auto) 0.3 (0.2-1.2) % Lymph # (Auto) 0.91 (0.9-3.2) K/mm3 [place] # (Auto) 1.4 H (0.1-0.6) K/mm3 Eos # (Auto) 0.0 (0-0.3) K/mm3 Baso # (Auto) 0.0 (0.0-0.1) K/mm3 Abs Immat Gran (auto) 0.06 H (0.00-0.031) K/mm3 Absolute Neuts (auto) 9.6 H (1.3-6.7) K/mm3 Absolute Nucleated RBC 0.000 (0.0-0.012) K/mm3 Band Neutrophils % Not Reportable Nucleated RBC % 0.0 (0.0-0.2) % Platelet Estimate Increased (Adequate) Anisocytosis 2+ Schistocytes Rare Sodium 137 (137-145) mmol/L Potassium 3.6 (3.4-5.0) mmol/L Chloride 101 (98-107) mmol/L Carbon Dioxide 23 (22-30) mmol/L Anion Gap 13 H (4-12) mmol/L BUN 17 (9-20) mg/dL Creatinine 0.95 (0.7-1.3) mg/dL Estim Creat Clear Calc 59 ml/min Estimated GFR > 60 (59 - ) Glucose 135 H (65-110) mg/dL Calcium 8.9 (8.4-10.2) mg/dL Total Bilirubin 0.4 (0.2-1.3) mg/dL AST 34 (17-59) U/L ALT 21 (6-50) U/L Alkaline Phosphatase 89 (38-126) U/L Total Protein 8.0 (6.3-8.2) g/dL Albumin 3.6 (3.5-5.1) g/dL Critical Care Time Critical Care Time Critical Care Time: Yes Total Critical Care Time: 61 Discharge Plan Discharge Clinical Impression: Closed dens fracture, Occlusion of left vertebral artery Patient Disposition: Home Condition: Stable Patient Language: Luxembourgish Prescriptions: No Action Vitafol Gummies 3.33 mg iron- 0.33 mg tablet,chewable 1 tablet PO BID levothyroxine [Synthroid] 137 mcg tablet 137 mcg PO DAILY Qty: 90 2RF cyclobenzaprine 10 mg tablet 10 mg PO TID PRN (Reason: muscle spasm) Qty: 30 2RF Patient Comments: .. lidocaine 4 % adhesive patch,medicated 1 patch topical DAILY PRN (Reason: pain) Qty: 60 0RF Rx Instructions: Apply to affected area for 12 hours, then remove. Follow-up/Referrals: Willi Wyatt DO [Primary Care Provider] -
[2024-10-06 08:13] LABS: Anisocytosis 2+; Platelet Estimate Increased (Adequate); Schistocytes Rare
[2024-10-06 09:20] VITALS: BP 143/55; PULSE 82; RESP 20; O2SAT 98
[2024-10-06 10:29] VITALS: BP 139/65; PULSE 69; RESP 17; O2SAT 100
== END 2024-10-06 10:32 | disposition short-term general hospital (02) ==
PROVIDERS: Emergency Provider Emergency Medicine; PCP Internal Medicine
DX: M84.48XA Pathological fracture, other site, initial encounter for fracture (principal); I65.02 Occlusion and stenosis of left vertebral artery; M47.816 Spondylosis without myelopathy or radiculopathy, lumbar region; M47.814 Spondylosis without myelopathy or radiculopathy, thoracic region; Z87.891 Personal history of nicotine dependence; Z79.899 Other long term (current) drug therapy
CPT/HCPCS: 36415; 70496; 70498; 72128; 72131; 80053; 85025; 96374; 99285; J3360; L0140; Q9967

== ENCOUNTER 2024-10-25 20:40 | Emergency (ER) | payer MEDICARE, SELFPAY ==
[2024-10-25] VITALS (7 sets, daily range): BP systolic 134–151; BP diastolic 67–77; PULSE 67–74; RESP 14–21; TEMP 36.6; O2SAT 96–99
--- OUTSIDE RECORDS SUMMARY | 2024-10-25 20:42 | XMS_ITS | Clinical Summary ---
Author Organization [facility] Anders mccord Rashad Address [address] [place] [address] Care Team Providers Care Mortgage Loan Assistant Name Role Phone Unavailable Primary Care Provider Unavailabl e Allergies Active Allergy Reactions Criticality Noted Date Comments Xgbadfn-Dqa-Gfm Reductase Inhibitors Other (See Comments) 08/26/2024 Gets [...] Encounters Date Type Department Care Team Description 10/13/2024 External Device Data STL ABSTRACTION Provider, Abstract 10/12/2024 External Device Data ST[place] ABSTRACTION Provider, Abstract 10/11/2024 External Device Data ST[place] ABSTRACTION Provider, Abstract 09/05/2024 4:15 PM CDT Telephone Check Up [facility] Oncology and Hematology - [place] [address] [place] [address] Juan Antonio Morgan MD Chronic anemia (Primary Dx) 09/05/2024 Orders Only [facility]ology - [place] [address] [facility] [address] Juan Antonio Morgan MD 09/02/2024 Abstract [facility] Hematology - [place] [address] [place] [address] Juan Antonio Morgan MD 08/30/2024 External Device Data STL ABSTRACTION Provider, Abstract 08/30/2024 External Device Data [place] ABSTRACTION Provider, Abstract 08/30/2024 External Device Data ST[place] ABSTRACTION Provider, Abstract 08/30/2024 Orders Only [facility] Oncology and Hematology - [place] [address] [place] [phone] Juan Antonio Morgan MD 08/29/2024 Orders Only [facility] Hematology - [place] [address] [place] [phone] Juan Antonio Morgan MD 08/26/2024 2:30 PM CDT Office Visit [facility]ematology - [place] [address] [place] [phone] Juan Antonio Morgan MD Chronic anemia (Primary Dx) 08/26/2024 Orders Only [facility] Oncology and Hematology - [place] [address] [place] [phone] Juan Antonio Morgan MD Essential thrombocytosis (CMS/HCC) [...] Description 11/03/2024 9:45 AM CDT Office Visit [facility] Oncology [facility] Hematology - [place] [address] [facility] [address] [place] [address] Juan Antonio Morgan MD [address] [facility] [address] [place] [address] Health Maintenance Due Date Last [...] resultswithin the time period is included. Blood Juan Antonio Morgan MD CHEMISTRY ORDERABLES Final Resu lt * CBC WITH AUTODIFFERENTIAL (08/26/2024 11:59 AM CDT) Blood Juan Antonio Morgan MD HEMATOLOGY ORDERABLES Final Res ult * METHYLMALONIC ACID (08/26/2024 11:41 AM CDT) Blood Juan Antonio Morgan MD CHEMISTRY ORDERABLES Final Resu lt from Last 3 Months Insurance AETNA [facility]
--- OUTSIDE RECORDS SUMMARY | 2024-10-25 20:42 | XMS_ITS | Clinical Summary ---
Author Organization [facility] Address [address] [place] [address] Care Team Providers Care Exchange Trouble Shooter Name Role Phone Unavailable Primary Care Provider Unavailabl e Source Comments [facility],non-owned Affiliates and Associated Physician Practices is amultiple site organization consisting of ambulatory clinics and hospital sitesin [place], [place], [place] and [place]. This disclosure is being madepursuant to the Care Everywhere program and may not contain all information available regarding this patient. 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 Gender Identity Not on file Sexual Orientation [...] PM CDT) Case Report Flow Cytometry Case: [id number] Authorizing Provider: Geronimo Franks Collected: 08/10/2024 03:12 PM MD Josse Ordering Location: [facility] - Received: 08/11/2024 02:22 PM Pathology Lab Pathologist: Montse Casterjon MD Specimen: Lymph Node 08/11/2024 4:15 PM CDT [facility] Final Diagnosis Lymph node, left axilla, flow cytometric immunophenotypic analysis: - No evidence of non-Hodgkin lymphoma - See interpretation 08/11/2024 4:15 PM CDT [facility] PATHOLOGY LAB at 1615 CDT Flow Cytometry Interpretation Viability: 86% B-cells: polytypic, kappa:lambda ratio 2.3:1 T-cells: no immunophenotypic aberrancy detected CD4:CD8 ratio 4.1:1 A cytospin prepared from the flow cytometry specimen has been reviewed for clinical quality rn purposes. 08/11/2024 4:15 PM CDT [facility] Flow Cytometry Results Differential Result Comment Flow Cell Count /uL 6,300 Total Viability % 86.0 Lymphocytes % 92 Dim CD45 Region % 7 Monocytes % 0 Granulocytes % 1 08/11/2024 4:15 PM CDT [facility] Reason for test Localized enlarged lymph nodes 785.6 08/11/2024 4:15 PM CDT [facility] Client Specimen ID # [id number] 08/11/2024 4:15 PM CDT [facility] Number of markers 17 were performed. A-2 Flow CD10 A-4 Flow CD20 A-5 Flow CD23 A-10 Flow CD2 A-11 Flow CD3 A-12 Flow CD4 A-16 Flow CD1a A-3 Flow CD19 A-6 Flow CD34 A-7 Flow CD45 A-13 Flow CD5 A-14 Flow CD7 A-15 Flow CD8 A-17 Flow CD30 A-8 Sealy+CD19+ A-9 Lambda+CD19+ 08/11/2024 4:15 PM CDT [facility] PATH[facility] LAB Pathologist Location at [facility] 08/11/2024 4:15 PM CDT U PATHOLOGY LAB Disclaimer Test performed at [facility], [address] [place] [address], [id number]. *The established laboratory minimum viability is 70%. [...] complexity clinical testing. 08/11/2024 4:15 PM CDT [facility] PATHOLOGY LAB Embedded Images 4:15 PM CDT [facility] PATHOLOGY LAB Pathology/Cytolo gy ENTIRE LYMPH NODE / Unknown 08/10/2024 3:12 PM CDT 08/11/2024 2:22 PM CDT Geronimo Franks MD LAB - PATHOLOGY/CYT OLOGY ORDERABLES Final Result [facility] PATHOLOGY LAB [address] [place] [address]. [place] [address], [facility] [phone] from Last 3 Months Insurance [employer] MEDICARE ADV SELF PAY NO INSURANCE Member Subscriber Plan / Payer (Ef fective for All Dates) Name:Sabino Pacheco Member ID:Not on file Relation to Subscriber:Not on file Name:JOSEFINASABINO Subscriber ID:Not on file (Home) Address: [address] [place] [id number] Payer ID:Not on file Group ID:Not on file Type:Self Pay Address: [place], [place]
--- OUTSIDE RECORDS SUMMARY | 2024-10-25 20:42 | XMS_ITS | Encounter Summary ---
Author Organization [facility] Healthcare Address [address] [place] [address] Care Team Providers Care Medical Asst Name Role Phone Willi Wyatt DO Primary Care Provider [phone] Sangeeta Wang [facility] Unavailable [phone] Bernardino Cooper [facility] Unavailable Unavailabl Vishal Starr [facility] Unavailable Unavail able Jose M West MD Unavailable Encounter Details Date Type Department Care Team (Latest Contact Info) Description 10/13/2024 Ophth Exam Ophthalmology Gina Pendleton MD [address] [place], [place] [id number] Social History Tobacco Use Types Packs/Day Years Used Date Smoking Tobacco: Former Cigarettes Q uit: 2020 OASIS D0700: Social Isolation Answer Da te Recorded Frequency of experiencing loneliness or isolatio n Never 10/15/2024 OASIS A1250: Transportation Answer Date Recorded Lack of Transportation (Medical) No 10/15/2024 Lack of Transportation (Non-Medical) No 10/15/2024 Patient Unable or Declines to Respond No 10/15/2024 OASIS B1300: Health Literacy Answer Ankit e Recorded Frequency of needing help to read materials from doctor or pharmacy Sometimes 10/15/2024 [facility] Utilities Answer Date Recorded In the past 12 months has th e electric, gas, oil, or water company threatened to shut off services in your home? No 10/17/2024 Social Connection and Isolat ion Panel [NHANES] Answer Date Recorded In a typical week, how many times do you talk on the phone with family, friends, or neighbors? More than three times a week 10/17/2024 How often do you get togethe r with friends or relatives? More than three times a week 10/17/2024 How often do you attend chur ch or restorationist services? More than 4 times per year 10/17/2024 Do you belong to any clubs o r organizations such as sikhism groups, unions, fraternal or athletic groups, or school groups? No 10/17/2024 How often do you attend meet ings of the clubs or organizations you belong to? Never 10/17/2024 Are you , , di vorced, , never , or living with a partner? 10/17/2024 Overall Financial Resource Strain (CARDIA) Answe r Date Recorded How hard is it for you to pa y for the very basics like food, housing, medical care, and heating? Not very hard 10/17/2024 Hunger Vital Sign Answer Date Recorded Within the past 12 months, y ou worried that your food would run out before you got the money to buy more. Never true 10/18/19 25 Within the past 12 months, t he food you bought just didn't last and you didn't have money to get more. Never true 10/17/2024 PRAPARE - Transportation Answer Date Re corded In the past 12 months, has l ack of transportation kept you from medical appointments or from getting medications? No 09/23 In the past 12 months, has l ack of transportation kept you from meetings, work, or from getting things needed for daily living? No 10/17/2024 Housing Stability Vital Sign Answer Ankit e Recorded In the last 12 months, was t here a time when you were not able to pay the mortgage or rent on time? No 10/17/2024 In the past 12 months, how m any times have you moved where you were living? 0 10/17/2024 At [facility] time in the [facility] were you homeless or living in a halfway (including now)? No 10/17/2024 Personal Safety Answer Date Recorded Have you ever been in or are you currently in a harmful physical or emotional relationship or is someone making you feel afraid or unsafe? Denies 10/08/2024 Sex and Gender Information Value Date Recorded Sex Assigned at Not on file Legal Sex Male 8:45 AM CDT Gender Identity Not on file Sexual Orientation Not on file documented as of this encounter Plan of Treatment Not on file documented as of this encounter Visit Diagnoses Not on filedocumented in this encounter Eye Exam Visual Acuity (Snellen - Linear) Right eye Left eye Near cc 20/30 ph 20/20 20/60 ph 20/25 Pupils Dark Light Shape React APD Right eye 4.5 4 Round Brisk None Left eye 3.5 3 Round Brisk None Visual He Right eye Left eye Full Full Extraocular Movement Right eye Left eye Full Full External Exam Right eye Left eye External Normal Normal Slit Lamp Exam Right eye Left eye Lids/Lashes Normal Normal Conjunctiva/Sclera White and quiet White and milton et Cornea temporal phaco wound with minimal stain uptake, justice negative Clear Anterior Chamber deep, no cell apprec iated on limited bedside exam Deep and quiet Iris Round and reactive Round and monique ctive Lens PCIOL in good position NS Anterior Vitreous Normal Normal Care Teams Medical Asst Relationship Specialty Start Date End Date Willi Wyatt DO [address] [place] [address] PCP - General Internal Medicine 10/06/24 Jose M West MD [address] IM INFECTIOUS DISEASE, [address] [place] [address] PCP - Home Infusion Attending Infectious Diseases 10/19/24 Sangeeta Wang, WELDING INSPECTOR [address] [facility] ([facility] Mailstop [phone] [place] [address] SHOP Outpatient Gis Physical Scientist 10/17/24 Bernardino Cooper, [facility] Pharmacist Pharmacy 10/18/24 10/18/24 Vishal Marie, [facility] Pharmacist Pharmacy 10/18/24 documented as of this encounter
--- OUTSIDE RECORDS SUMMARY | 2024-10-25 20:42 | XMS_ITS ---
Author Organization [facility] Address [address] [place] [address] Care Team Providers Care Transcription Manager Name Role Phone Yoselin, Willi PAYNE Primary Care Provider [phone] Sangeeta Wang [facility] Unavailable [phone] Vishal Marie [facility] Unavailable Unavail able Jose M West MD Unavailable Anti-Infective Status:Enrolled (Active) Start date:10/18/2024 Enrollment date:10/18/2024 Linked medications:oxacillin sodium,0.9 % sodium chloride (Active) Related program episode:Home Infusion (Active) Overview Cutover complete Case Team Name Relationship Phone Vishal Marie [facility](Responsible Staff) Pharm acist Continued Care and Services Coordination This section includes services coordinated for Anti-Infective. Home Medical Care Name Services Phone [facility] Services [phone]
--- OUTSIDE RECORDS SUMMARY | 2024-10-25 20:42 | XMS_ITS | Encounter Summary ---
Author Organization [facility] Healthcare Address [address] [place] [address] Care Team Providers Care Rooming House Inspector Name Role Phone Willi Wyatt Primary Care Provider [phone] Sangeeta Wang [facility] Unavailable [phone] Bernardino Cooper [facility] Unavailable Unavailabl Vishal Starr [facility] Unavailable Unavail able Jose M West MD Unavailable Encounter Details Date Type Department Care Team (Late st Contact Info) Description 10/16/2024 Home Infusion [facility] Home Infusion Therapy [address] [place] [address] Celeste Marie RN Social History Tobacco Use Types Packs/Day Years [...] materials from doctor or pharmacy Sometimes 10/15/2024 [facility] Utilities Answer Date Recorded In the past 12 months has e [employer] gas, oil, or water [employer] threatened to shut off services in your [...] often do you attend chur ch or confucianism services? More than 4 times per year 10/17/2024 Do you belong to any clubs o r organizations such as mandaeism groups, unions, fraternal or athletic groups, or [...] any time in the past 12 m [facility], were you homeless or living in a mcfp (including now)? No 10/17/2024 Personal Safety Answer [...] Diagnoses Not on filedocumented in this encounter Care Teams Rooming House Inspector Relationship Specialty Start Date End Date Rodríguez WyatteDO [address] [place] [address] PCP - General Internal Medicine 10/06/24 Jose M West MD [address] IM INFECTIOUS DISEASE, [address] [place] [address] PCP - Home Infusion Attending Infectious Diseases 10/19/24 Sangeeta Wang, TRUCK DESPATCHER [address] [facility] ([facility]) Mailstop [phone] [place] [address] SHOP Outpatient Contract Paralegal 10/17/24 Bernardino Cooper, [facility] Pharmacist Pharmacy 10/18/24 10/18/24 Vishal Marie, [facility] Pharmacist Pharmacy 10/18/24 documented as of this encounter
--- OUTSIDE RECORDS SUMMARY | 2024-10-25 20:42 | XMS_ITS ---
Author Organization [facility] Address [address] [place] [address] Care Team Providers Care Aluminum Boat Inspector Name Role Phone Yoselin Willi PAYNE Primary Care Provider [phone] Sangeeta Wang [facility] Unavailable [phone] Vishal Marie [facility] Unavailable Unavail able Jose M West MD Unavailable [phone] Home Infusion Status:Enrolled (Active) Start date:10/18/2024 Enrollment date:10/18/2024 Related service episodes:Anti-Infective (Active) Overview Cutover complete Roman Villaseñor 10/19/2024 10:52 AM Continued Care and Services Coordination
--- OUTSIDE RECORDS SUMMARY | 2024-10-25 20:42 | XMS_ITS | Encounter Summary ---
Author Organization [facility] Healthcare Address [address] [place] [id number] Care Team Providers Care Forklift Mechanic Name Role Phone Willi Wyatt Primary Care Provider [phone] Sangeeta Wang [facility] Unavailable [phone] Bernardino Cooper [facility] Unavailable Unavailabl Vishal Starr [facility] Unavailable Unavail able Jose M West MD Unavailable [phone] Reason for Visit * Auth/Cert (Routine) Specialty Diagnoses / Procedures Referred By Contac t Referred To Contact Referral ID Status Reason Start Date Expiration Date Visits Re quested Visits Authorized [id number] 1 1 Encounter Details Date Type Department Care Team (Latest Contact Info) Description 10/15/2024 1:30 PM CDT Home Care Visit [address] [address] [address] [place] [address] Cecilia Tian SN OASIS START OF CARE Social History Tobacco Use Types Packs/Day Years [...] materials from doctor or pharmacy Sometimes 10/15/2024 [facility] Utilities Answer Date Recorded In the past 12 months has e [employer], gas, oil, or water company threatened to [...] often do you attend chur ch or cheondoism services? More than 4 times per year 10/17/2024 Do you belong to any clubs o r organizations such as jain groups, unions, fraternal or athletic groups, or [...] any time in the past 12 [facility], were you homeless or living in a assisted (including now)? No 10/17/2024 Personal Safety Answer [...] Sign Reading Time Taken Comments Blood Pressure 142/85 10/15/2024 2:22 PM CDT Pulse 62 10/15/2024 2:22 PM CDT Temperature 36 C (96.8 F) 10/15/2024 2:22 PM CDT Respiratory Rate 16 10/15/2024 2:22 PM CDT Oxygen Saturation 99% 10/15/2024 2:22 PM CDT Inhaled Oxygen Concentration - - Weight 75.8 kg (167 lb) 10/15/2024 2:22 PM CDT Height 182.9 cm (6') 10/15/2024 2:22 PM CDT Body Mass Index 22.65 10/15/2024 2:22 PM CDT documented in this encounter Miscellaneous Notes * Home Health/Infusion SBAR - Cecilia Tian - 10/15/2024 1:19 PM CDT SITUATION Focus of Care: Osteomyelitis of vertebra, 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 Recent elective cataract removal of right eye on 10/04/2024. Patient with recent hospitalization from 10/06/2024-10/14/2024for chronic and worsening neck pain since 07/2024. Neck pain was causing reduced ROM of head leading to 10/06/2024 when the patient was unable to get out of bed r/t in creased weakness and pain. Patient reports he rolled out of bed to the floor, crawled to the door to let his dog out and then calledEMS for transportation to the hospital. He was found to have a non displaced cervical spine fracture, osteomyelitis on the cervical spine and erosion of C1-C2 joint. Emergent surgery was completed for I&D of septic joint C1-C2, fusion of cervical spine from occiput to C5 and laminectomy of C2-C3, C4-C5. Patient states he has been pain free since surgery. Prior Level of Functioning: Independent with all ADLs and IADLs Current Living Conditions/Safety Hazards: Patient lives in a multi level single family residence byhimself with his dog. His son Keith is staying with him short term to assist with ADLs and infusion. ASSESSMENT Abnormal assessment findings: [place] collar in place. Patient is allowed to loosen/remove collar 3 times a day for eating and showering, PICC line present in RUE, eye shield in place on right eye following recent cataract surgery Medication Issues: Patient did not fill the oxycodone script. States he does not need it. Rifampin capsules are not in stock currently waiting for pharmacy to fill. Patient not taking all prescribed medications. Re-hospitalization risk: moderate Barriers to care/social drivers: Environmental barriers in home (uneven stairs, infestation, etc.) RECOMMENDATIONS POC confirmed with Dr. Jose M West Plan for my discipline: 1w6, 6prn for line care, labs, dressing changes Other disciplines ordered/recommended: Longterm Supply/HME/equipment needs or issues: none Follow ups needed: scheduled * Quality Review - Emily Waterman - 10/15/2024 1:19 PM CDT [id number] - Types and Sources of Assistance Supervision and safety 1- Non- agency caregiver(s) currently provide assistance 0- No assistance needed OASIS item is related to need/ level of assistance due to cognitive impairments. The patient does not have any cognitive impairments according to documentation. According to OASISI guidance, if patient does not have cognitive impairments, then O6333k would not apply. M1028 - Active Diagnoses Clinician omitted 3- None of the above Change from blank to NA. Patient does not have an active diagnosis of DM OR PVD/PAD documented by the MD or designee on the day of assessment. * Quality Review - Cecilia Tian - 10/15/2024 1:19 PM CDT I have reviewed and agree with all suggested changes to [place] assessment documentation. documented in this encounter Plan of Treatment Not on file documented as of this encounter Goals Goal Patient Goal Type Associated Problems Recent Progress Patient-Stated? Author Patient will have kept initial appointment and will show signs of improvement to baseline Care Plan Initial Follow-Up Appointment No Sangeeta Wang LCSW Level of assistance will meet patient's needs Care Plan Problems In Home Environment No Sangeeta Wang LCSW Note: Pt needing more support and son is staying with him, C confirmed to be involved. documented as of this encounter Visit Diagnoses Not on filedocumented in this encounter Additional Health Concerns Active Problems Noted Date Diagnosed Date Initial Follow-Up Appointment 10/17/2024 Problems In Home Environment 10/17/2024 documented as of this encounter Home Health Visit - Care Plan Visit Details Visit Type -SN OASIS Start o f Care Discipline -Longterm Problems Problem Description Start Date Status Goals Interve ntions Collect Specimen/Lab Draw Disciplines: Longterm Management of specimen samples, including lab draws, stool, urine, sputum & wound cultures 10/15/2024 Active 1 goal linked to scheduled/documen erik intervention Medications Disciplines: Longterm Management of IV Medications 10/15/2024 Active 1 goal linked to scheduled/documen erik intervention 1 problem intervention scheduled/documen erik in this visit IV Therapy-Manageme nt, Education, and Maintenance Disciplines: Longterm IV Management, education, and maintenance for home IV therapy. 10/15/2024 Active 1 goal linked to scheduled/documen erik intervention 2 problem interventions scheduled/documen erik in this visit Pressure Prevention Disciplines: Skilled Disciplines Pressure Prevention 10/15/2024 Active 1 goal linked to scheduled/documen erik intervention 1 goal intervention scheduled/documen erik in this visit Medications Disciplines: Longterm Management of home medications 10/15/2024 Active 1 goal linked to scheduled/documen erik intervention 2 goal interventions scheduled/documen erik in this visit Monitor patient's vital signs every home health visit Disciplines: Skilled Disciplines, SN, PT, OT, RIVETER HAND, SCRAP PREPARER Monitor patient's vital signs every home health visit. 10/15/2024 Active 1 goal linked to scheduled/documen erik intervention 1 goal intervention scheduled/documen erik in this visit Multidisciplinar y Case Conference Disciplines: Skilled Disciplines Concurrently discusses plan of treatment and coordinate patient centered care 10/15/2024 Active 1 goal linked to scheduled/documen erik intervention Infection Prevention Disciplines: Skilled Disciplines Infection Prevention 10/15/2024 Active 1 goal linked to scheduled/documen erik intervention 2 goal interventions scheduled/documen erik in this visit Fall Precautions/Safe ty Concerns Disciplines: Skilled Disciplines Fall precautions and general safety 10/15/2024 Active 1 goal linked to scheduled/documen erik intervention 1 goal intervention scheduled/documen erik in this visit Pain Disciplines: Core Disciplines Alteration in comfort 10/15/2024 Active 1 goal linked to scheduled/documen erik intervention 1 goal intervention scheduled/documen erik in this visit Goals Goal Associated Problem Outcome Goal Met? Visit Notes Collect Specimen/Lab Draw Description: Collect specimen / draw labs as ordered Collect Specimen/Lab Draw Progressing No Understand infusion medication regimen Description: Patient/caregiver will verbalize understanding of infusion medication regimen by end of the episode of care. Medications Progressing No Safely perform IV administration and airline pilot/first officer Description: Patient/caregiver will be able to verbalize and demonstrate ability to safely administer IV medication and flushing of line while IV line is in place. IV line will be maintained with no signs or symptoms of infection. IV Therapy-Management, Education, and Maintenance Progressing No Prevent development of pressure injuries Description: roasterman goal: The patient will maintain intact skin and avoid the development of pressure injuries within the current certification period Short term goal: The patient/caregiver will understand and adhere to pressure prevention interventions withi n 2 weeks. Pressure Prevention Progressing No Understand and follow medication therapy Description: Patient/Caregiver will verbalize understanding of purpose, side effects, and medication regimen in 4 weeks as evidenced by taking all medications as prescribed and no medication errors. Medications Progressing No Measure vital signs during every home health visit during episode of care Description: Home law librarian to measure vital signs during every home health visit during episode of care. Monitor patient's vital signs every home health visit Progressing No Care team will coordinate care Description: Care team will coordinate care centered on patient needs throughout the episode of care. Multidisciplinary Case Conference Progressing No Verbalize signs of infection Description: Patient/caregiver will demonstrate knowledge of infection prevention strategies by verbalizing signs and symptoms of infection. Infection Prevention Progressing No Demonstrate fall and safety precautions Description: Patient/caregiver maintains safe home environment as evidenced by remaining free from falls, injury due to falls, demonstrating safety precautions, and identifying strategies to reduce falls by 11/15/2024 Fall Precautions/Safety Concerns Progressing No Report that pain has been reduced or controlled Description: Patient/caregiver/family will verbalize satisfaction with the patients level of pain and symptom control. Pain Progressing No Interventions Intervention Associated Problem/Goal Status Variance Visit Notes Instruct on Medication Management Description: Instruct patient/caregiver in medication administration, purpose, dosages, preparation, scheduling, side effects, food/drug interactions, storage, drug allergies, and potential complications. Problem:Medication s Completed Instructed patient on signs and symptoms related to medication regimen to report to provider. Assessed patient/caregiver ability to demonstrate management of medications safely, management of medications using a pill box or medication list , steps to ob tain new/refill medications and identification of new/changed medications Assessed patient/caregiver about ability to verbalize accurate dose/route/frequency/re ason for medication , how to evaluate effectiveness of medication , ongoing lab work needed to ensure therapeutic dosing , drug and food interactions , side effects/adverse reactions , contraindications for medication and known drug allergies for the following medication(s) all active medications on profile dated 10/15/2024 Fo llow up needs: none, independent. Patient verbalizes understanding of medication management. PICC Line Description: PICC Line with 2 Lumens. Change PICC line dressing within 48 hours if there is gauze under the occlusive dressing. Change dressing weekly and PRN if lifted/detached on any border edge or within transparent portion of dressing; visibly soiled; prese nce of moisture, drainage, or blood. Clean insertion site with chlorhexidine secure with stat-lock apply transparent dressing. Instruct patient/caregiver on flushing line with 5-10 ml normal saline and then Heparin 50 U per 5ml daily and PRN for prob lems. Patient/caregiver may do in SN absence Skilled Nurse to place needleless access device and disinfecting caps to the end of each line. Skilled Nurse to measure line migration and arm circumference at start of care and weekly with dressing change . Instruct patient/caregiver to assess insertion site every 4 hours during waking hours for signs of complications and to report signs/symptoms or altered dressing integrity immediately, and on not allowing blood pressures or needle sticks to be done in PICC line arm. Problem:IV Therapy-Management , Education, and Maintenance Completed Clinician performed line care per Physician's order dated 10/15/2024. Patient tolerated well Clinician observed Caregiver Keith perform flushing of line per Physician's order dated 10/15/2024. Follow up needs: none, independent. Agrees to perform dres sing change on the days of no clinician visit. IV Management and Education Description: Instruct patient/caregiver on Reason for Therapy: Caregiver/son Keith to assess the insertion site once a day if not in use for continuous infusion, how to gather supplies, how to restock IV supplies in the home, prepare supplies, inspecting solution and supplies before infusing. Skilled Nurse to instruct patient/caregiver on how to properly administer medication, normal saline, and heparin, disconnecting IV medication and waste disposal. Skilled nurse to instruct patient and caregiver to monitor for signs and symptoms of adverse medication reaction such as: Redness, warmth, drainage, temp above 100.5, rash, shortness of breath, tingling, numbness, restlessness, nausea and vomiting and to report to SN or physician. Skilled nurse to instruct patient to contact home health agency if line is not functioning properly. Instruct on operation and management of infusion device- Elastomeric device: Instruct on alarm system, troubleshooting, battery changes (if applicable), and how to properly connect/ disconnect infusion. Instruct patient/caregiver on infection prevention and signs of complications such as; Proper hand hygiene and use of gloves, safe use and cleaning of equipment, cleaning IV connections with alcohol prep, allowing to dry befor e attaching any syringe/tubing, using alcohol caps on all lumens of each line and on extension tubing when attached to a lumen, if infusion tubing is to be used for additional administration in a 24 hour period apply an end cap to infusion tubing, if t ransparent dressing is occlusive patient may shower, instruct patient to cover dressing. Signs of complications: Evidence of dislodgement, redness, tenderness, swelling, infiltration, induration, drainage, pain, temperate greater than 100.5, paresth esia, Numbness or tingling in extremity on side of access device, and to notify home health nurse or physician for any signs and symptoms of infection. Problem:IV Therapy-Management , Education, and Maintenance Completed Instructed patient/caregiver on supply management, proper medication administration, pump management and infection prevention techniques Patient and Caregiver verbalized understanding supply management, proper medication administration, pump managemen t and infection prevention techniques Instruct on Pressure Prevention Description: Instruct patient/caregiver on inspecting the skin regularly for signs of impaired skin integrity, repositioning the patient on an individualized schedule according to the patient's tissue tolerance, skin condition, mobility, medical condition, and treatm ent goals. Avoid vigorous massage and emphasize the importance of increasing activity and mobility. Avoid using donut-shaped devices and foam cutouts for pressure redistribution. Determine if patient is using or needs a pressure reduction surface. Instruct patient/caregiver on using moisture barriers and absorbent pads/briefs as needed, avoiding prolonged skin contact with wet materials, and cleaning and drying skin thoroughly after incontinence episodes. If patient is malnourished instruct patien t/caregiver on physician ordered diet, increased fluid intake if not contraindicated, and a list of possible protein sources to promote skin integrity. Problem:Pressure Prevention Goal:Prevent development of pressure injuries Completed Instructed patient/caregiver on pressure prevention including: inspecting the skin and avoiding vigorous massage, repositioning patient and importance of increasing activity and mobility, using positioning devices, avoiding donut shaped/foam cutouts, reynaldo ating heels , Managing moisture and Managing nutrition Patient and Caregiver Keith verbalized understanding inspecting the skin and avoiding vigorous massage, repositioning patient and importance of increasing activity and mobility, using positioning d evices, avoiding donut shaped/foam cutouts, floating heels , Managing moisture and Managing nutrition Instruct on Medication Management Description: Assess patient/caregiver ability to demonstrate management of medications, steps to obtain new/refills of medications and identification of new or changed medications. Assess patient/caregiver ability to verbalize accurate dose/route/frequency/re ason for medication, how to evaluate effectiveness of medication, ongoing lab work needed to ensure therapeutic dosing, drug/food interactions, side effects/adverse reactions, contraindications for medications and known drug allergies. Evaluate the effectiveness of current treatment regimen and notify the appropriate healthcare provider for the need for changes in the plan of care. Problem:Medication s Goal:Understand and follow medication therapy Completed Instructed patient on signs and symptoms related to medication regimen to report to provider. Assessed patient/caregiver ability to demonstrate management of medications safely, management of medications using a pill box or medication list , steps to ob tain new/refill medications and identification of new/changed medications Assessed patient/caregiver about ability to verbalize accurate dose/route/frequency/re ason for medication , how to evaluate effectiveness of medication , ongoing lab work needed to ensure therapeutic dosing , drug and food interactions , side effects/adverse reactions , contraindications for medication and known drug allergies for the following medication(s) all active medications on profile dated 10/15/2024 Fo llow up needs: none, independent. Patient verbalizes understanding of medication management. Instruct on High Risk Medications Description: Instruct patient/caregiver on oral or injectable high-risk medications, including: anticonvulsant, antiretroviral, anticoagulant, antibiotics, chemotherapeutic, hypoglycemic including insulin, immunosuppressant, antipsychotic, and opioids. Problem:Medication s Goal:Understand and follow medication therapy Completed Antibiotics: Patient and caregiver instructed on medication oxacillin to treat bone infection. Instructed to finish entire course, signs and symptoms to report to Home Care Agency or MD such as signs of allergic reaction: (rash, flushing, vomiting, re spiratory distress) and GI upset. Follow up needs: none, independent. Patient verbalizes understanding of medication management. ---- Monitor Vital Signs Description: Monitor blood pressure, pulse, oxygen saturation, respirations Problem:Monitor patient's vital signs every home health visit Goal:Measure vital signs during every home health visit during episode of care Completed Educate Patient on Infection Prevention Description: Instruct patient on signs and symptoms of infection IE: fever, odor, change in color, increased amount of drainage, purulent drainage, warmth. Problem:Infection Prevention Goal:Verbalize signs of infection Completed Educate Family on Infection Prevention Description: Instructed family on signs and symptoms of infection IE: fever, odor, change in color, increased amount of drainage, purulent drainage, warmth. Problem:Infection Prevention Goal:Verbalize signs of infection Completed High Fall Risk Precautions Description: Instruct patient/caregiver Keith to use proper lighting in all areas, stand/sit up slowly, use appropriate footwear when walking, use proper assistive devices, and to keep pathways clear of cords and clutter to prevent falls. Remove/secure throw rugs. Edu dennis patient on medications and disease processes that increase fall risk, using corrective lenses as prescribed, placing hard to reach items within reach, what to do in the event of a fall and to report any falls to the home health agency. Problem:Fall Precautions/Safety Concerns Goal:Demonstrate fall and safety precautions Completed Instructed patient/caregiver Keith on fall risk prevention including: using proper lighting in all areas, standing/sitting up slowly, using appropriate footwear when walking, using proper assistive devices, keeping pathways clear of cords and clutter and removing/securing throw rugs Patient and Caregiver Keith verbalized understanding Instruct on pain management techniques Description: Instruct in pharmacologic and nonpharmacologic pain management techniques. Problem:Pain Goal:Report that pain has been reduced or controlled Completed documented in this encounter Care Teams Forklift Mechanic Relationship Specialty Start Date End Date Willi Wyatt DO [address] [place] [address] PCP - General Internal Medicine 10/06/24 Jose M West MD [address] INFECTIOUS DISE[facility], [address] [place] [address] PCP - Home Infusion Attending Infectious Diseases 10/19/24 Sangeeta Wang, [facility] [address] [facility] ([facility] [place] [phone] [place] [address] [facility] Manager 10/17/24 Bernardino Cooper, [facility] Pharmacist Pharmacy 10/18/24 10/18/24 Vishal Marie [facility] Pharmacist Pharmacy 10/18/24 documented as of this encounter
--- OUTSIDE RECORDS SUMMARY | 2024-10-25 20:43 | XMS_ITS ---
Care Plan Created on: October 25, 2024 Eric Pacheco : 1945 Sex: Male Author Organization [facility] al Address [address] [place] [address] Care Team Providers Care Candy Spreader Helper Name Role Phone Willi Wyatt DO Primary Care Provider [phone] Sangeeta Wang [facility] Unavailable [phone] Vishal Marie [facility] Unavailable Unavail able Jose M West MD Unavailable [phone] Active Problems Problem Noted Date Diagnosed Date Constipation 10/10/2024 Assessment & Plan (10/12/2024 2:09 PM CDT): --Aggressive Bowel regimen of pericolace, miralax --Bisacodyl Suppositories started on 10/10 --Docusate Enema x1 ordered on 10/10 --KUB neg. Pt passing gas --10/11-10/12 Pt refusing enema and suppository Cataract extraction status of eye, right 025 Assessment & Plan (10/10/2024 11:25 AM CDT): --Patient reports that he had a cataract extraction without complication on 10/[address] John in [facility] --Since surgery, he reports his vision has progressively been improving and denies any pain, new vision changes, flashes/floaters,redness, diplopia, photophobia --Ophthalmology consulted on 10/09; the patient's eyes were dilated by ophthalmology on 10/09 --Ophthalmology recommending continuing Pred Forte and Moxifloxacin drops QID; follow-up with Dr. John Osteomyelitis of cervical spine 10/07/2024 Assessment & Plan (10/11/2024 1:08 PM CDT): 79 year old man, hx of hypothyroidism, HTN, HLD, anemia. Recent 2 month neck pain/weight loss, taste loss, tickle in throat and voice change. Presents with worsening neck pain 2 weeks after chiropractic adjustment admitted to [facility] and transferred to [facility] on 10/06/24 Found to have extensive destructive process of the skull base (dens/clivus/C1-C2) with soft tissue around prevertebral/paraspinal tissues with small retropharyngeal space fluid collection and extensive paraspinal muscle myositis through he cervical spine, with pachymeningeal enhancement, and bilateral vertebral artery occlusion. Blood cultures from 10/07 positive for MSSA, cleared on 10/08. TTE showing some aortic thickening. Underwent I&D and C5-occiput fusion on 10/07/24, purulence found. Per pt also has had R wrist stiffness x 3 months, has screws in that wrist, has some less stiffness on L wrist. 10/08 wrist X-ray's show osteoarthritis. He was started postoperatively on vancomycin, cefepime, and metronidazole. Narrowed to oxacillin on 10/10, rifampin added on 10/11. Recommending treating MSSA cervical spine osteomyelitis and MSSA BSI with 6 weeks (10/08/24-11/19/24) of IV oxacillin to be followed with an additional 6 weeks (EOT 11/08/24) of PO doxycycline or cefadroxil and 3 months of PO rifampin (EOT 01/08/25). In Summary, this is a 79 year old man with MSSA skull base and cervical osteomyelitis with extensive surrounding soft tissue infection and MSSA bacteremia. Recommending treating MSSA cervical spine osteomyelitis and MSSA BSI with 6 weeks (10/08/24-11/19/24) of IV oxacillin to be followed with an additional 6 weeks (EOT 11/08/24) of PO doxycycline or cefadroxil and 3 months of PO rifampin (EOT 01/08/25). Micro: Blood cultures: 10/06 NGTD, 10/07 MSSA, 10/08 NGTD, 10/09 NGTD 10/07 cervical spine OR cultures: MSSA Recommendations: - Continue oxacillin 2gm IV q4hr - Start rifampin 300mg PO BID (ordered) - Monitor minimum weekly CBC w/ diff and CMP's - Okay by ID to place PICC line for terminal make up operator IV antibiotics given 10/08-10/09 blood cultures remain NGTD - ID is formally signing off but will continue to monitor patient peripherally while inpatient. Please see sign off note from 10/11 for complete recommendations. Assessment & Plan (10/10/2024 2:00 PM CDT): 79 year old man, hx of hypothyroidism, HTN, HLD, anemia. Recent 2 month neck pain/weight loss, taste loss, tickle in throat and voice change. Presents with worsening neck pain 2 weeks after chiropractic adjustment admitted to [facility] and transferred to [facility] on 10/06/24 Found to have extensive destructive process of the skull base (dens/clivus/C1-C2) with soft tissue around prevertebral/paraspinal tissues with small retropharyngeal space fluid collection and extensive paraspinal muscle myositis through he cervical spine, with pachymeningeal enhancement, and bilateral vertebral artery occlusion. 1/ bcx from 10/07 positive for MSSA. TTE showing some aortic thickening. Underwent I&D and C5-occiput fusion on 10/07/24, purulence found. Per pt also has had R wrist stiffness x 3 months, has screws in that wrist, has some less stiffness on L wrist. 10/08 wrist X-ray's show osteoarthritis. He was started postoperatively on vancomycin, cefepime, and metronidazole. Narrowed to oxacillin on 10/10. In Summary, this is a 79 year old man with MSSA skull base and cervical osteomyelitis with extensive surrounding soft tissue infection and MSSA bacteremia. Micro: Blood cultures: 10/06 NGTD, 10/07 MSSA, 10/08 NGTD, 10/09 NGTD 10/07 cervical spine OR cultures: MSSA Recommendations: - Discontinue vancomycin, cefepime, and metronidazole (done) - Start oxacillin 2gm IV q4hr (ordered) - Monitor CBC and CMP's - Okay by ID to place PICC line for terminal make up operator IV antibiotics given 10/07-10/09 blood cultures remain NGTD - Given patient reports no bilateral wrist pain today, no need for further wrist imaging. - ID will continue to follow Assessment & Plan (10/12/2024 2:09 PM CDT): --Purulent material found in the left-sided C1-C2 joint in OR and fluid was aspirated and sent for fluid culture; culture results positive for S. Aureus --Blood cultures from 10/07 +MSSA --ID consulted, started empirically on V/C/F (10/06-10/10), changed to Oxacillin for 6 weeks with end date of 11/19/24 and Rifampin PO with end date of 01/08/25 --PICC placed 10/11 and HI planned SOC 10/15 Assessment & Plan (10/08/2024 3:09 PM CDT): 79 year old man, hx of hypothyroidism, HTN, HLD, anemia. Recent 2 month neck pain/weight loss, taste loss, tickle in throat and voice change. Presents with worsening neck pain 2 weeks after chiropractic adjustment admitted to [facility] and transferred to [facility] on 10/06/24 Found to have extensive destructive process of the skull base (dens/clivus/C1-C2) with soft tissue around prevertebral/paraspinal tissues with small retropharyngeal space fluid collection and extensive paraspinal muscle myositis through he cervical spine, with pachymeningeal enhancement, and bilateral vertebral artery occlusion. 1/4 bcx from 10/07 positive for MSSA. TTE showing some aortic thickening. Underwent I&D and C5-occiput fusion on 10/07/24, purulence found. Per pt also has had R wrist stiffness x 3 months, has screws in that wrist, has some less stiffness on L wrist. In Summary, this is a 79 year old man with very likely skull base and cervical osteomyelitis with extensive surrounding soft tissue infection and possible meningeal involvement and LV2/V3 vertebral artery occlusion. Currently unknown organism but MSSA suspected given positive BCx. Unclear source at this time, alternatively there is the possibility this is neoplastic, however time course and findings less consistent with this. Recommendations: -Please send 1x set peripheral cultures per day, can stop when 2 serial cultures negative x >48 hours. -Get bilateral wrist XR to evaluate for gross signs of osteomyelitis. If negative, consider R wrist MRI (or if screws not MRI compatible, can get CT R wrist) -Continue cefepime at 2g IV q8h, metronidazole at 500mg IV q12h, and vancomycin at 1000mg IV q12h -Check vancomycin trough prior to 4th dose, goal is currently 10-20 -Awaiting OR cultures -send cbc, cmp daily currently while inpatient on IV antibiotics. -ID to follow Assessment & Plan (10/07/2024 4:01 PM CDT): 79 year old man, hx of hypothyroidism, HTN, HLD, anemia. Recent 2 month neck pain/weight loss, taste loss, tickle in throat and voice change. Presents with worsening neck pain 2 weeks after chiropractic adjustment admitted to 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 Currently unknown organism. Unclear source at this time, alternatively there is the possibility this is neoplastic, however time course and findings less consistent with this. Recommendations: -Agree with ISSUE CLERK dosed cefepime at 2g IV q8h, metronidazole at 500mg IV q12h, and vancomycin at 1000mg IV q12h -Check vancomycin trough prior to 4th dose, goal is currently 15-20 (for possible meningeal involvement) -Please send 2x additional blood cultures -ID requested tissue/bone be sent in clean specimen cup to microbiology lab for culture (able to do advanced testing on these types of samples vs e-swabs), already discussed with ortho spine consult resident who will relay info to surgical team. -Recommend ENT do an upper airway endoscopy to evaluate for pharyngeal/laryngeal lesions that could be related to the patien's pharyngeal symptoms. If one is found, please send some biopsy sample to micro lab for aerobic/anaerobic culture as well. -Send Histoplasma urine antigen (pt with pulmonary nodules, time course could be consistent with an atypical dimorphic mold infection). Send histoplasma serum antibody. -Send coxiella burnetii serologies (can cause atypical osteomyelitis) -Awaiting OR findings. -send cbc, cmp daily currently while inpatient on IV antibiotics. -ID to follow Diagnosis unknown 10/07/2024 Closed nondisplaced fracture of first cervical vertebra, unspecified fracture morphology, initial encounter 10/06/2024 Assessment & Plan (10/11/2024 3:39 PM CDT): --status post Occiput-C5 PCDF with C2-3, C4-5 Laminectomy on 10/07 --Closed with Nylon sutures --C-spine xrays done on 10/08 --PT rec for rehab, OT rec for home --Tift J for 21 hours/day --Pt to follow up with Dr Cornelius outpatient Additional Health Concerns Active Problems Noted Date Diagnosed Date Initial Follow-Up Appointment 10/17/2024 Problems In Home Environment 10/17/2024 Goals Goal Patient Goal Type Associated Problems Recent Progress Patient-Stated? Author Patient will have kept initial appointment and will show signs of improvement to baseline Care Plan Initial Follow-Up Appointment No Sangeeta Wang LCSW Level of assistance will meet patient's needs Care Plan Problems In Home Environment No Sangeeta Wang LCSW Note: Pt needing more support and son is staying with him, [facility] confirmed to be involved. Interventions Care Plan Interventions Intervention Entry Date Outcome Assess need for higher level of care or SNF/ECF placement. Coordinate placement if appropriate 10/17/2024 Make referral for composite layup worker 10/17/2024 Make referral to [facility] 10/17/2024 Identify/assist in obtaining available community resources and make referrals as needed 10/17/2024 Assess appropriateness for DME. Contact PCP office to start referral process if skilled need is present 10/17/2024 Assess appropriateness for Home Health. Contact PCP office to start referral process if skilled need is present 10/17/2024 Follow up with patient 2 days after Post Hospital Visit office visit to ensure understanding of changes and follow-up plan 10/17/2024 Coordinate with patient/caregiver(s) to ensure patient is able to keep scheduled appointment 10/17/2024 Address any barriers for keeping scheduled appointment 10/17/2024 Discuss with patient/ caregiver plan for transportation to appointment 10/17/2024 Ensure Pt has follow-up scheduled within 7 days of discharge 10/17/2024 Related Goals and Interventions Goal Associated Intervent ions Patient will have kept initi al appointment and will show signs of improvement to baseline Follow up with patient 2 days after Post Hospital Visit office visit to ensure understanding of changes and follow-up plan; Coordinate with patient/caregiver(s) to ensure patient is able to keep scheduled appointment; Address any barriers for keeping scheduled appointment; Discuss with patient/ caregiver plan for transportation to appointment; Ensure Pt has follow-up scheduled within 7 days of discharge Level of assistance will lynne t patient's needs Assess need for higher level of care or SNF/ECF placement. Coordinate placement if appropriate; Make referral for composite layup worker; Make referral to [facility]; Identify/assist in obtaining available community resources and make referrals as needed; Assess appropriateness for DME. Contact PCP office to start referral process if skilled need is present; Assess appropriateness for Home Health. Contact PCP office to start referral process if skilled need is present
--- OUTSIDE RECORDS SUMMARY | 2024-10-25 20:43 | XMS_ITS | Clinical Summary ---
Author Organization [facility] Address [address] [place] [address] Care Team Providers Care Learning Coach Name Role Phone Willi Wyatt Primary Care Provider [phone] Sangeeta Wang [facility] Unavailable [phone] Vishal Marie [facility] Unavailable Unavail able Jose M West MD Unavailable [phone] Allergies Active Allergy Reactions Criticality Noted Date Comments Atorvastatin Dizziness,Flushing (skin) Low 10/12/19 25 Medications oxacillin 2 gram injectionIndications: Bone/Joint Infection [The details of the medication are not available because there are pending changes by a home health clinician.] 0 11/19 Active Additional Information Patient taking differently: 12 gintravenousEvery 24 hours, 12g in 500mL of NS - elastomeric device at 20mL/hour, Indications: Bone/Joint Infection, Reported on 10/15/2024 acetaminophen 500 mg capsuleIndications:Fe gelacio,Pain,mild to moderate Take 2 capsules (1,000 mg total) by mouth every 6 (six) hours 11/13 Active aspirin 81 mg chewable tabletIndications:pre vention of thrombosis [The details of the medication are not available because there are pending changes by a home health clinician.] 10/14 Active Additional Information Patient not taking.Reported on 10/15/2024 polyethylene glycol (MIRALAX) 17 gram packetIndications:con stipation [The details of the medication are not available because there are pending changes by a home health clinician.] 11/13 Active Additional Information Patient taking differently:17 g oralDaily PRN, constipation, Indications: constipation, Reason: Side effects (taking as needed), Informant: Self, Reported on 10/15/2024 bisacodyL (DULCOLAX) 10 mg suppositoryIndication s:constipation [The details of the medication are not available because there are pending changes by a home health clinician.] 11/13 Active Additional Information Patient not taking.Reported on 10/15/2024 methocarbamoL (ROBAXIN) 500 mg tabletIndications:Mus estiven Spasm Take 1 tablet (500 mg total) by mouth 4 (four) times a day 120 tablet 11/13 Active moxifloxacin (VIGAMOX) 0.5 % ophthalmic solutionIndications:p ost cataract surgery Administer 1 drop into the right eye 4 (four) times a day 3 mL 11/13 Active multivit kilnvenh-echz-WG-calc ium (THERA-M) 9 mg iron-400 mcg tabletIndications:Vit anne Deficiency Prevention [The details of the medication are not available because there are pending changes by a home health clinician.] 11/13 Active Additional Information Patient not taking.Reported on 10/15/2024 prednisoLONE acetate (PRED FORTE) 1 % ophthalmic suspensionIndications :Prevention of Cytarabine-Induced Keratoconjunctivitis Administer 1 drop into the right eye 4 (four) times a day 5 mL 11/13 Active rifAMPin (RIFADIN) 300 mg capsuleIndications:Joaquín ne/Joint Infection Take 1 capsule (300 mg total) by mouth 2 (two) times a day 60 capsule 2 01/12 Active senna-docusate (PERICOLACE) 8.6-50 mgIndications:constip ation [The details of the medication are not available because there are pending changes by a home health clinician.] 60 tablet 11/13 Active Additional Information Patient taking differently:1 tablet oral2 times daily PRN, constipation, Indications: constipation, Reported on 10/15/2024 tamsulosin (FLOMAX) 0.4 mg extended release capsule [The details of the medication are not available because there are pending changes by a home health clinician.] 30 capsule 11/13 Active Additional Information Patient not taking.Reason: Side effects, Informant: Self, Reported on 10/15/2024 oxyCODONE (ROXICODONE) 5 mg immediate release tabletIndications:Thaddeus n [The details of the medication are not available because there are pending changes by a home health clinician.] 42 tablet 2024 Active Additional Information Patient not taking.Reported on 10/15/2024 oxacillin IVPB 12,000 mg in 0.9% sodium chloride 500 mL (elastomeric)Indicati ons: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) Infuse 500 mL (12,000 mg total) IV daily for 24 hours at 20 mL/hr via elastomeric device. Remove from refrigerator 3-4 hours before administratio [place]. 43695 mL 11/21 Active sodium chloride 0.9% flush syringeIndications:Os teomyelitis of vertebra of cervical region (HCC) Infuse 10 mL IV as needed for line care 58935 mL 2024 Active heparin 10 unit/mL syringe flush syringeIndications:Ma intain Patency of Indwelling Vascular Catheter Administer 5 mL (50 Units total) into IV catheter as needed (catheter maintenance) 49983 mL 10/17 Active bisacodyL (DULCOLAX) 10 mg suppositoryIndication s:constipation Insert 1 suppository (10 mg total) into the rectum daily 4 suppository 10/14 Discontinued methocarbamoL (ROBAXIN) 500 mg tabletIndications:Mus estiven Spasm Take 1 tablet (500 mg total) by mouth 4 (four) times a day 120 tablet 10/14 Discontinued moxifloxacin (VIGAMOX) 0.5 % ophthalmic solution Administer 1 drop into the right eye 4 (four) times a day 3 mL 10/14 Discontinued multivit apxjglld-linh-KX-calc ium (THERA-M) 9 mg iron-400 mcg tabletIndications:Vit anne Deficiency Prevention Take 1 tablet by mouth daily 30 tablet 10/14 Discontinued prednisoLONE acetate (PRED FORTE) 1 % ophthalmic suspension Administer 1 drop into the right eye 4 (four) times a day 5 mL 10/14 Discontinued senna-docusate (PERICOLACE) 8.6-50 mg Take 1 tablet by mouth 2 (two) times a day 60 tablet 10/14 Discontinued tamsulosin (FLOMAX) 0.4 mg extended release capsule Take 1 capsule (0.4 mg total) by mouth daily with dinner 30 capsule 10/14 Discontinued sodium chloride 0.9% flush syringeIndications:PI CC line care Administer 10-20 mL into catheter as needed for line care 10/18 Discontinued sodium chloride 0.9% flush syringeIndications:PI CC line care Administer 10-40 mL into catheter every 12 (twelve) hours 10/18 Discontinued rifAMPin (RIFADIN) 300 mg capsuleIndications:Joaquín ne/Joint Infection Take 1 capsule (300 mg total) by mouth 2 (two) times a day 60 capsule 2 10/14 Discontinued oxyCODONE (ROXICODONE) 5 mg immediate release tabletIndications:Thaddeus n Take 1 tablet (5 mg total) by mouth every 4 (four) hours as needed for pain 42 tablet 10/14 Discontinued( Stop Taking at Discharge) heparin, porcine, PF, 10 unit/mL solutionIndications:M aintain Patency of Indwelling Vascular Catheter Administer 5 mL into IV catheter as needed (catheter maintenance) 10/18 Discontinued( Reorder) Active Problems Problem Noted Date Diagnosed Date [...] complication on 10/[address] 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 IV antibiotics given 10/08-10/09 blood cultures remain [...] 2 weeks after chiropractic adjustment admitted to [facility] and transferred to [facility] on 10/06/24 Found to have extensive [...] by ID to place PICC line for group home IV antibiotics given 10/07-10/09 blood cultures remain [...] 2 weeks after chiropractic adjustment admitted to [facility] and transferred to [facility] on 10/06/24 Found to have extensive [...] 2 weeks after chiropractic adjustment admitted to [facility] and transferred to [facility] on 10/06/24 Found to have extensive [...] less consistent with this. Recommendations: -Agree with MEDICAL ASSEMBLER dosed cefepime at 2g IV q8h, metronidazole [...] rec for rehab, OT rec for home --[place] [facility] for 21 hours/day --Pt to follow up with Dr Cornelius outpatient Encounters Date Type Department Care Team Description 10/25/2024 1:30 PM CDT Home Care Visit [facility] - [address] [place] [address] Casa Warren RN SN HOME VISIT 10/25/2024 1:00 PM CDT Hospital Encounter [address] [address] 10/25/2024 Documentation [facility] Infectious Diseases [address] [facility] [address] [place] [id number] Bar Porter MD 10/25/2024 Home Care Visit [address] [place] [address] Sangeeta Brunson RN SN TRIAGE ENCOUNTER 10/24/2024 SHOP/CHAP Subsequent Outreach [facility] OP CASE MANAGEMENT [address] [place] [address] Sangeeta Wang, [employer]GER 10/20/2024 Documentation [facility] Infectious Diseases [address] [facility] [address] [place] [id number] Nhan Rico Jr., RN 10/18/2024 10:00 AM CDT - 10/18/2024 11:59 PM CDT Hospital Encounter [facility] [address] [place] [address] Discharge Disposition: Discharge to home or self care 10/18/2024 8:00 AM CDT Home Care Visit [address] [place] [address] Casa Warren RN SN HOME VISIT 10/18/2024 Home Infusion [facility] Home Infusion Therapy [address] [place] [address] Bernardino Cooper, [facility] 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) (Primary Dx) 10/17/2024 SHOP/CHAP Initial Outreach [facility] OP CASE MANAGEMENT [address] [place] [address] Sangeeta Wang, [employer]GER 10/17/2024 SHOP/CHAP Initial Eligibility Review [facility] OP CASE MANAGEMENT [address] [place] [id number] Sangeeta Wang, [employer] 10/16/2024 Home Infusion [facility] Home Infusion Therapy [address] [place] [address] Celeste Marie RN 10/15/2024 1:30 PM CDT Home Care Visit [place] [id number] [facility] [address] [place] [address] Cecilia Tian SN OASIS START OF CARE 10/15/2024 Plan of Care Documentation [facility] [address] [facility] [address] [place] [address] 10/14/2024 Orders Only [facility] Home Care Services [address] [facility] [address] [place] [address] Vanita Hernandez, [facility] 10/13/2024 Ophth Exam Ophthalmology Gina Pendleton MD 10/11/2024 Documentation [facility] Infectious Diseases [address] [facility] [address] [place] [phone] Bianca Ceja NP 10/09/2024 Ophth Exam [facility] Ophthalmology [address] [facility] 1[address] [place] [phone] Imani Ventura MD 10/07/2024 1:49 PM CDT Anesthesia Event [facility] Operating Room [address] [place] [address] Alistair Stevenson MD Dippolito, Jenny Irene, NP 10/07/2024 1:30 PM CDT - 10/07/2024 7:05 PM CDT Surgery [facility] Operating Room [address] [place] [address] Deshawn Cornelius MD CERVICAL FUSION - POSTERIOR, OCCIPUT-C5 C2-C3, C4-C5 Laminectomy 10/06/2024 10:59 AM CDT - 10/14/2024 3:50 PM CDT Hospital Encounter [address] [address] Pan Leiva MD McHale, Matthew Justin, DO Chan, Philip, MD Pallotta, Nicholas Andrew, MD Diagnosis unknown (Primary Dx); Closed nondisplaced fracture of first cervical vertebra, unspecified fracture morphology, initial encounter (HCC); Occlusion of left vertebral artery; Paresthesia of bilateral legs; Osteomyelitis of cervical spine (HCC) Discharge Disposition: Discharge to home, home health skilled care from Last 3 Months Immunizations Immunization Administration Dates Next Due Tdap 10/06/2024() Social History Tobacco Use Types Packs/Day Years Used Date Smoking Tobacco: Former Cigarettes Q uit: 2020 Tobacco Cessation:Counseling Given: Not Answered OASIS D0700: Social Isolation Answer Da te [...] materials from doctor or pharmacy Sometimes 10/15/2024 [facility] Utilities Answer Date Recorded In the past 12 months has e [employer], [employer], oil, or water [employer] threatened to shut off services in your [...] often do you attend chur ch or uatsdin services? More than 4 times per year 10/17/2024 Do you belong to any clubs o r organizations such as restorationist groups, unions, fraternal or athletic groups, or [...] any time in the past 12 [facility], were you homeless or living in a intermediate (including now)? No 10/17/2024 Personal Safety Answer [...] on file Sexual Orientation Not on file Obstetrics History Last Filed Vital Signs Vital Sign Reading Time Taken Comments Blood Pressure 118/58 10/25/2024 1:32 PM CDT Pulse 70 10/25/2024 1:32 PM CDT Temperature 36.4 C (97.6 F) 10/25/2024 1:32 PM CDT Respiratory Rate 18 10/25/2024 1:32 PM CDT Oxygen Saturation 98% 10/25/2024 1:32 PM CDT Inhaled Oxygen Concentration - - Weight 75.8 kg (167 lb) 10/15/2024 2:22 PM CDT Height 182.9 cm (6') 10/15/2024 2:22 PM CDT Body Mass Index 22.65 10/15/2024 2:22 PM CDT Plan of Treatment Health Maintenance Due Date Last Done Comments Depression Screening 1945 DTaP/Tdap/Td Vaccine (1 - Tdap) 02/11/1956 Pneumococcal vaccine 65+ (1 of 2 - PCV) 02/11/1964 Well Visit 65+ 2010 Zoster Vaccine (2 of 3) 09/17/2012 07/23/2012 Covid-19 Vaccine (7 2023-2 5 season) 2024 03/30/2023, 04/01/2022, 11/13/2021, Additional history exists Fall Risk Assessment 10/14/2025 10/14/2024 Influenza Vaccine Completed 05/10/2024, , 04/01/2022, Additional history exists Hepatitis B Screening Completed 10/09/2024 Hepatitis C Screening Completed 10/09/2024 Goals Goal Patient Goal Type Associated Problems Recent Progress Patient-Stated? Author Patient will have kept initial appointment and will show signs of improvement to baseline Care Plan Initial Follow-Up Appointment Sangeeta Martin LCSW Level of assistance will meet patient's needs Care Plan Problems In Home Environment No Sangeeta Wang LCSW Note: Pt needing more support and son is staying with him, [facility] confirmed to be involved. Medical Devices Implanted Type Area Timber Buyer Device Identifier Shelf Expiration Date Model / Serial / Lot Invictus Oct 3.5x14 Fa Screw Implanted:Qty: 1 on 10/07/2024 by Deshawn Cornelius MD at [facility] Screw N/A: Spine Cervical [employer] 14343-18- 14 / [id number]- 14 / [place] Spine Allograft Gel Graft 5cc Bone Demineralized Bone Matrix [id number] - [id number] Implanted:Qty: 1 on 10/07/2024 by Sarah Milligan MD at [facility] N/A: Spine Cervical Ever Spine [id number] 01/15/2027 [id number] / / [id number] Invictus Oct Plate 48mm Implanted:Qty: 1 on 10/07/2024 by Deshawn Cornelius MD at [facility] N/A: Spine Cervical ATEC Spine [id number] / / Description:Approved item mi sc code used Invictus Oct Occipital Screw 4.5 X 6 Implanted:Qty: 1 on 10/07/2024 by Deshawn Cornelius MD at [facility] N/A: Spine Cervical [employer] [id number] / / Invictus Oct Occipital Screw 4.5 X 8 Implanted:Qty: 1 on 10/07/2024 by Deshawn Cornelius MD at [facility] N/A: Spine Cervical [employer] [id number] / / Invictus Oct Occipital Screw 4.5 X 10 Implanted:Qty: 1 on 10/07/2024 by Deshawn Cornelius MD at [facility] N/A: Spine Cervical [employer] 35365-70- / / Description:Approved misc co de used Invictus Oct Occipital Screw 4.5 X 14 Implanted:Qty: 1 on 10/07/2024 by Deshawn Cornelius MD at [facility] N/A: Spine Cervical [employer] 23144-88- / / Description:Approved misc co de used Invictus Oct Occipital Screw 4.5 X 16 Implanted:Qty: 1 on 10/07/2024 by Deshawn Cornelius MD at [facility] N/A: Spine Cervical [employer] 68810-50- / / Description:Approved misc co de used [employer] Graft Bone Magnetos 10cc 1-2mm Granules In Moldable Putty 703-038-Us - [id number] Implanted:Qty: 1 on 10/07/2024 by Sarah Milligan MD at [facility] N/A: Spine Cervical [employer] [id number] 02/22/2029 703-038-[id number] S / / [id number] Medtronic Inc Infuse 20ga 2x1in Vial Absorbable Syringe Needle Medium Graft 5.6 [id number] - [id number] Implanted:Qty: 1 on 10/07/2024 by Deshawn Cornelius MD at [facility] N/A: Spine Cervical [employer]onic Inc [id number] / / Iinvictus Oct Set Screw Implanted:Qty: 9 on 10/07/2024 by Deshawn Cornelius MD at [facility] N/A: Spine Cervical [employer] [id number] / [id number] / Invictus Oct 3.5x16 Fa Screw Implanted:Qty: 5 on 10/07/2024 by Deshawn Cornelius MD at [facility] N/A: Spine Cervical [employer] [id number]- 16 / [id number]- 16 / Invictus Oct 3.5x22 Fa Screw Implanted:Qty: 1 on 10/07/2024 by Deshawn Cornelius MD at [facility] N/A: Spine Cervical [employer] 81033-23- 22 / [id number]- 22 / Description:Approved items m isc code used Invictus Oct Head To Head Connector 40mm Implanted:Qty: 1 on 10/07/2024 by Deshawn Cornelius MD at [facility] N/A: Spine Cervical [employer] 14027-38 / [id number] / 4.0 Ti Hinged Mono Implanted:Qty: 2 on 10/07/2024 by Deshawn Cornelius MD at [facility] N/A: Spine Cervical ATEC Spine 34218-20- 40 / / Occipital Tulip Implanted:Qty: 2 on 10/07/2024 by Deshawn Cornelius MD at [facility] N/A: Spine Cervical ATEC Spine [id number] / / Procedures Procedure Name Priority Date/Time Associated Diagnosis Comments EGFR STAT 10/25/2024 1:00 PM CDT CRITICAL RESULT CALLBACK CHEMISTRY STAT 10/25/2024 1:00 PM CDT DIFFERENTIAL AUTO STAT 10/25/2024 1:00 PM CDT CRP (ACUTE PHASE) STAT 10/25/2024 1:00 PM CDT ERYTHROCYTE SEDIMENTATION RATE STAT 10/25/2024 1:00 PM CDT CBC WITH AUTO DIFFERENTIAL STAT 10/25/2024 1:00 PM CDT COMPREHENSIVE METABOLIC PANEL STAT 10/25/2024 1:00 PM CDT EGFR STAT 10/18/2024 10:00 AM CDT DIFFERENTIAL AUTO STAT 10/18/2024 10:00 AM CDT CBC WITH AUTO DIFFERENTIAL STAT 10/18/2024 10:00 AM CDT COMPREHENSIVE METABOLIC PANEL STAT 10/18/2024 10:00 AM CDT EGFR Routine 10/13/2024 8:57 PM CDT CBC WITHOUT DIFFERENTIAL Routine 025 8:57 PM CDT COMPREHENSIVE METABOLIC PANEL Routine 10/13/2024 8:57 PM CDT PHOSPHORUS Routine 10/13/2024 8:57 PM CDT CBC WITH AUTO DIFFERENTIAL Routine 10/12/2024 9:12 PM CDT DIFFERENTIAL AUTO Routine 10/12/2024 9:12 PM CDT EGFR Routine 10/12/2024 9:12 PM CDT CBC WITHOUT DIFFERENTIAL Routine 025 9:12 PM CDT COMPREHENSIVE METABOLIC PANEL Routine 10/12/2024 9:12 PM CDT PHOSPHORUS Routine 10/12/2024 9:12 PM CDT MAGNESIUM Routine 10/12/2024 9:12 PM CDT EGFR Routine 10/11/2024 8:48 PM CDT CBC WITHOUT DIFFERENTIAL Routine 025 8:48 PM CDT COMPREHENSIVE METABOLIC PANEL Routine 10/11/2024 8:48 PM CDT PHOSPHORUS Routine 10/11/2024 8:48 PM CDT MAGNESIUM Routine 10/11/2024 8:48 PM CDT XR ABDOMEN AP 1 VIEW ED Urgent/IP Urgent 10/11/2024 10:44 AM CDT EGFR Routine 10/10/2024 10:32 PM CDT CBC WITHOUT DIFFERENTIAL Routine 025 10:32 PM CDT COMPREHENSIVE METABOLIC PANEL Routine 10/10/2024 10:32 PM CDT PHOSPHORUS Routine 10/10/2024 10:32 PM CDT MAGNESIUM Routine 10/10/2024 10:32 PM CDT VANCOMYCIN LEVEL TROUGH Timed 10/11/19 25 3:25 PM CDT CBC WITHOUT DIFFERENTIAL Routine 025 3:25 PM CDT XR SPINE CERVICAL 2 OR 3 VIEWS IP Routine 10/10/2024 11:19 AM CDT EGFR Routine 10/09/2024 8:59 PM CDT COMPREHENSIVE METABOLIC PANEL Routine 10/09/2024 8:59 PM CDT PHOSPHORUS Routine 10/09/2024 8:59 PM CDT MAGNESIUM Routine 10/09/2024 8:59 PM CDT CBC WITHOUT DIFFERENTIAL Routine 025 8:59 PM CDT POCT GLUCOSE DEVICE Routine 10/09/2024 8:23 PM CDT HEPATITIS C ANTIBODY Routine 10/09/2024 3:30 PM CDT HEPATITIS B CORE ANTIBODY, TOTAL Routine 10/09/2024 3:30 PM CDT HEPATITIS B SURFACE ANTIBODY (IMMUNE STATUS) Routine 10/09/2024 3:30 PM CDT HEPATITIS B SURFACE ANTIGEN Routine 10/09/2024 3:30 PM CDT HIV 1/2 ANTIBODY PLUS P24 ANTIGEN Routine 10/09/2024 3:30 PM CDT BLOOD CULTURE Routine 10/09/2024 10:05 AM CDT BLOOD CULTURE Routine 10/09/2024 10:05 AM CDT EGFR Routine 10/08/2024 9:09 PM CDT PHOSPHORUS Routine 10/08/2024 9:09 PM CDT MAGNESIUM Routine 10/08/2024 9:09 PM CDT CBC WITHOUT DIFFERENTIAL Routine 025 9:09 PM CDT BASIC METABOLIC PANEL Routine 10/08/2024 9:09 PM CDT VANCOMYCIN LEVEL TROUGH Timed 10/09/19 25 2:34 PM CDT XR SPINE CERVICAL 2 OR 3 VIEWS IP Routine 10/08/2024 1:50 PM CDT XR WRIST BILATERAL 3 OR MORE VIEWS ED Urgent/IP Urgent 10/08/2024 1:49 PM CDT BLOOD CULTURE Routine 10/08/2024 10:21 AM CDT INFECTION PREVENTION AYAKA AURIS PCR, SURVEILLANCE Routine 10/08/2024 10:21 AM CDT HISTOPLASMA ANTIGEN Routine 10/08/2024 10:21 AM CDT CRITICAL CARE Routine 10/08/2024 7:37 AM CDT Closed nondisplaced fracture of first cervical vertebra, unspecified fracture morphology, initial encounter (HCC) Occlusion of left vertebral artery XR CHEST 1 VIEW IP Routine 10/07/2024 9:48 PM CDT URINALYSIS, MICROSCOPIC ONLY Routine 10/07/2024 8:08 PM CDT URINALYSIS AND REFLEX TO MICROSCOPIC Routine 10/07/2024 8:08 PM CDT CRITICAL CARE Routine 10/07/2024 7:38 PM CDT Diagnosis unknown POCT GLUCOSE DEVICE Routine 10/07/2024 7:05 PM CDT EGFR STAT 10/07/2024 7:02 PM CDT APTT STAT 10/07/2024 7:02 PM CDT PHOSPHORUS STAT 10/07/2024 7:02 PM CDT MAGNESIUM STAT 10/07/2024 7:02 PM CDT LACTATE, WHOLE BLOOD STAT 10/07/2024 7:02 PM CDT PROTIME-INR STAT 10/07/2024 7:02 PM CDT CALCIUM,IONIZED, WHOLE BLOOD STAT 10/07/2024 7:02 PM CDT CBC WITHOUT DIFFERENTIAL STAT 025 7:02 PM CDT BASIC METABOLIC PANEL STAT 10/07/2024 7:02 PM CDT POTASSIUM, WHOLE BLOOD STAT 7:02 PM CDT HISTOPLASMA ANTIBODY Routine 10/07/2024 7:02 PM CDT Q FEVER AB W REFLEX TO IMMUNOFLUORESCENCE Routine 10/07/2024 7:02 PM CDT CRITICAL CARE Routine 10/07/2024 6:12 PM CDT Closed nondisplaced fracture of first cervical vertebra, unspecified fracture morphology, initial encounter (HCC) Osteomyelitis of cervical spine (HCC) TISSUE AEROBIC AND ANAEROBIC CULTURE AND GRAM STAIN Routine 10/07/2024 6:11 PM CDT FL FLUOROSCOPY < 1 HOUR IP Routine 10/08/19 5:40 PM CDT MYCOLOGY (FUNGAL) CULTURE Routine 10/07/2024 4:52 PM CDT MYCOBACTERIOLOGY AFB CULTURE Routine 10/07/2024 4:52 PM CDT AEROBIC AND ANAEROBIC CULTURE AND GRAM STAIN Routine 10/07/2024 4:52 PM CDT POC BLOOD GAS AND CHEMISTRIES, ARTERIAL Routine 10/07/2024 4:48 PM CDT TISSUE AEROBIC AND ANAEROBIC CULTURE AND GRAM STAIN Routine 10/07/2024 3:57 PM CDT UT AN PROCEDURE PLACEHOLDER Routine 10/07/2024 3:38 PM CDT UT AN PROCEDURE PLACEHOLDER Routine 10/07/2024 3:37 PM CDT UT AN PROCEDURE PLACEHOLDER Routine 10/07/2024 3:36 PM CDT UT AN ELECTIVE ENDOTRACHEAL AIRWAY Routine 10/07/2024 3:36 PM CDT ANESTHESIA ARTERIAL LINE PLACEMENT Routine 10/07/2024 3:08 PM CDT LAMINECTOMY CERVICAL FUSION - POSTERIOR 10/07/2024 1:54 PM CDT Closed nondisplaced fracture of first cervical vertebra, unspecified fracture morphology, initial encounter (HCC) Special Needs Prone, tongs, shanda table with pads, C-arm. A-ozzy for instruments. Matchstick drill bit. Neuromonitoring: MEP, SSEP, EMGs. Cultures. BMP, cancellous chips. TRANSTHORACIC ECHO (TTE) COMPLETE W DOPPLER/CF W CONTRAST Routine 10/07/2024 11:49 AM CDT POCT GLUCOSE DEVICE Routine 10/07/2024 11:32 AM CDT CRITICAL CARE Routine 10/07/2024 11:20 AM CDT Closed nondisplaced fracture of first cervical vertebra, unspecified fracture morphology, initial encounter ([facility]) Occlusion of left vertebral artery Osteomyelitis of cervical spine ([facility]) BLOOD CULTURE Routine 10/07/2024 9:56 AM CDT BLOOD CULTURE Routine 10/07/2024 9:56 AM CDT POCT GLUCOSE DEVICE Routine 10/07/2024 7:40 AM CDT CRP (ACUTE PHASE) STAT 10/07/2024 3:28 AM CDT POCT GLUCOSE DEVICE Routine 10/07/2024 2:53 AM CDT ECG 12-LEAD Routine 10/07/2024 2:17 AM CDT POCT GLUCOSE DEVICE Routine 10/06/2024 11:05 PM CDT CRITICAL CARE Routine 10/06/2024 7:28 PM CDT Diagnosis unknown POCT GLUCOSE DEVICE Routine 10/06/2024 7:09 PM CDT CRITICAL CARE Routine 10/06/2024 6:30 PM CDT BLOOD CULTURE Routine 10/06/2024 6:11 PM CDT POCT GLUCOSE DEVICE Routine 10/06/2024 6:09 PM CDT VITAMIN D 25 HYDROXY Routine 10/06/2024 6:08 PM CDT CRP (ACUTE PHASE) Routine 10/06/2024 6:08 PM CDT EGFR Routine 10/06/2024 6:08 PM CDT MAGNESIUM Routine 10/06/2024 6:08 PM CDT PHOSPHORUS Routine 10/06/2024 6:08 PM CDT DIFFERENTIAL AUTO Routine 10/06/2024 6:08 PM CDT COMPREHENSIVE METABOLIC PANEL Routine 10/06/2024 6:08 PM CDT CBC WITH AUTO DIFFERENTIAL Routine 10/06/2024 6:08 PM CDT LACTATE Routine 10/06/2024 6:08 PM CDT BLOOD CULTURE Routine 10/06/2024 6:08 PM CDT CRITICAL CARE Routine 10/06/2024 6:00 PM CDT Closed nondisplaced fracture of first cervical vertebra, unspecified fracture morphology, initial encounter (HCC) Occlusion of left vertebral artery Osteomyelitis of cervical spine (HCC) UT CRITICAL CARE ILL/INJURED PATIENT INIT 30-74 MIN Routine 10/06/2024 5:17 PM CDT PTH Routine 10/06/2024 5:06 PM CDT B CHECK SAMPLE STAT 10/06/2024 5:06 PM CDT MRI BRAIN W WO CONTRAST ED Urgent/IP Urgent 10/06/2024 4:05 PM CDT MRI SPINE TOTAL COMPLETE W WO CONTRAST ED Urgent/IP Urgent 10/06/2024 4:05 PM CDT XR SPINE CERVICAL 2 OR 3 VIEWS ED Urgent/IP Urgent 10/06/2024 1:27 PM CDT XR TRANSFER OF OUTSIDE FILMS Routine 10/06/2024 1:[address] BODY OUTSIDE CONSULT Routine 10/07/19 12:57 PM CDT US OUTSIDE CONSULT Routine 10/06/2024 12:[address] OUTSIDE CONSULT Routine 025 12:[address] OUTSIDE CONSULT Routine 025 12:04 PM CDT Diagnosis unknown ERYTHROCYTE SEDIMENTATION RATE Routine 10/06/2024 11:14 AM CDT THROMBOELASTOMETRY PANEL - FIBRINOGEN Routine 10/06/2024 11:14 AM CDT THROMBOELASTOMETRY PANEL - HEPARIN Routine 10/06/2024 11:14 AM CDT THROMBOELASTOMETRY PANEL - INTRINSIC Routine 10/06/2024 11:14 AM CDT THROMBOELASTOMETRY PANEL - EXTRINSIC Routine 10/06/2024 11:14 AM CDT DIFFERENTIAL AUTO Routine 10/06/2024 11:14 AM CDT THROMBOELASTOMETRY PANEL Routine 025 11:14 AM CDT PROTIME-INR Routine 10/06/2024 11:14 AM CDT APTT Routine 10/06/2024 11:14 AM CDT ETHANOL Routine 10/06/2024 11:14 AM CDT CBC WITH AUTO DIFFERENTIAL Routine 10/06/2024 11:14 AM CDT TYPE AND SCREEN Timed 10/06/2024 11:14 AM CDT POC BLOOD GAS AND CHEMISTRIES, VENOUS Routine 10/06/2024 11:13 AM CDT from Last 3 Months Results * eGFR (10/25/2024 1:00 PM CDT) eGFR 87 >=60 mL/min/1. 73 m2 Comment: Interpretive Data Reference Interval Normal >/= 90 mL/min/1.73m2 Mildly decreased* 60 - 89 mL/min/1.73m2 Mildly to moderately decreased 45 - 59 mL/min/1.73m2 Moderately to severely decreased 30 - 44 mL/min/1.73m2 Severely decreased 15 - 29 mL/min/1.73m2 Kidney Failure < 15 mL/min/1.73m2 *Relative to young adult level Estimated glomerular filtration rate is determined by the 2020 CKD-EPI equation recommended by the National Kidney Foundation (A Unifying Approach to GFR Estimation: Recommendations of the NKF-ASK Task Force on Reassessing the Inclusion of Race in Diagnosing Kidney Disease, JASN 2020). The CKD-EPI equation should not be used for patients with unstable renal function and has not been validated in children and those over 70. Current interpretive data was last reviewed 2021. Blood 10/25/2024 1:00 PM CDT 10/25/2024 6:16 PM CDT us Jose M West MD LAB BLOOD ORDERABLES Final Res ult [facility] Department of Laboratories [place], [place] [id number] * Differential, auto (10/25/2024 1:00 PM CDT) Neutrophil abs 2.75 1.50 - 6.50 K/cumm Imm gran abs 0.01 0.00 - 0.10 K/cumm [facility] Lymphocyte abs 1.18 0.80 - 3.30 K/cumm [facility] Monocyte abs 0.47 0.20 - 0.80 K/cumm [facility] Eosinophil abs 0.17 0.00 - 0.50 K/cumm [facility] Basophil abs 0.06 0.00 - 0.10 K/cumm [facility] Neutrophil pct 59.3 % [facility] Comment: Interpretive Data Percent cell count reference ranges are not reported, since discordance with absolute values may lead to misinterpretation of CBC data. Current Interpretive Data was last revised on 2017. Imm gran pct 0.2 % [facility] Comment: Interpretive Data Percent cell count reference ranges are not reported, since discordance with absolute values may lead to misinterpretation of CBC data. Current Interpretive Data was last revised on 2017. Lymphocyte pct 25.4 % [facility] Comment: Interpretive Data Percent cell count reference ranges are not reported, since discordance with absolute values may lead to misinterpretation of CBC data. Current Interpretive Data was last revised on 2017. Monocyte pct 10.1 % [facility] Comment: Interpretive Data Percent cell count reference ranges are not reported, since discordance with absolute values may lead to misinterpretation of CBC data. Current Interpretive Data was last revised on 2017. Eosinophil pct 3.7 % [facility] Comment: Interpretive Data Percent cell count reference ranges are not reported, since discordance with absolute values may lead to misinterpretation of CBC data. Current Interpretive Data was last revised on 2017. Basophil pct 1.3 % [facility] Comment: Interpretive Data Percent cell count reference ranges are not reported, since discordance with absolute values may lead to misinterpretation of CBC data. Current Interpretive Data was last revised on 2017. Blood 10/25/2024 1:00 PM CDT 10/25/2024 6:13 PM CDT us Jose M West MD LAB BLOOD ORDERABLES Final Res ult [facility] [place] [address] * Critical Result Callback Chemistry (10/25/2024 1:00 PM CDT) Date Notified [id number] Time Notified 1902 [facility] TestName Potassium Plas [facility] Called/Read Back Holly Brunson [facility] Credentials [facility] Called By radha [facility] Blood 10/25/2024 1:00 PM CDT 10/25/2024 6:16 PM CDT Jose M West MD LAB BLOOD ORDERABLES Final Res ult [facility] [place] [address] * (ABNORMAL) CBC with auto differential (10/25/2024 1:00 PM CDT) Pathologist [facility] WBC 4.64 3.80 - 9.90 K/cumm Hgb 9.2(L) 13.0 - 17.5 g/dL [facility] Hct 31.0(L) 38.9 - 50.3 % [facility] Plt 449(H) 150 - 400 K/cumm [facility] MPV 8.8(L) 9.1 - 12.3 fL [facility] RBC 3.38(L) 4.30 - 5.80 M/cumm [facility] MCV 91.7 81.3 - 96.4 fL [facility] MCH 27.2 27.1 - 33.3 pg [facility] MCHC 29.7(L) 32.3 - 35.7 g/dL [facility] RDW CV 24.3(H) 11.1 - 14.9 % [facility] RDW SD 84.3(H) 35.7 - 48.1 fL [facility] NRBC abs 0.00 0.00 - 0.01 K/cumm [facility] Blood 10/25/2024 1:00 PM CDT 10/25/2024 6:13 PM CDT Jose M West MD LAB BLOOD ORDERABLES Final Res ult Performing Organization Address [facility] Co de Phone Number [facility] [place] [address] * (ABNORMAL) Erythrocyte sedimentation rate (10/25/2024 1:00 PM CDT) Erythrocyte sedimentation rate 93(H) 1 - 20 mm/hr Blood 10/25/2024 1:00 PM CDT 10/25/2024 6:13 PM CDT Jose M West MD LAB BLOOD ORDERABLES Final Res ult Performing Organization Address [facility] Co de Phone Number [facility] [place] [address] * (ABNORMAL) CRP (acute phase) (10/25/2024 1:00 PM CDT) Pathologist [facility] CRP 18.7(H) <=10.0 mg/L Blood 10/25/2024 1:00 PM CDT 10/25/2024 6:13 PM CDT Jose M West MD LAB BLOOD ORDERABLES Final Res ult Performing Organization Address [facility] Co de Phone Number [facility] [place] [address] * (ABNORMAL) Comprehensive metabolic panel (10/25/2024 1:00 PM CDT) Sodium 139 135 - 145 mmol/L Potassium, pl 2.4(C) 3.3 - 4.9 mmol/L [facility] Chloride 100 97 - 110 mmol/L [facility] CO2 29 22 - 32 mmol/L [facility] Anion gap 10 2 - 15 mmol/L [facility] BUN 8 6 - 25 mg/dL [facility] Creatinine 0.89 0.80 - 1.30 mg/dL [facility] Glucose 145 70 - 199 mg/dL [facility] Comment: Interpretive Data Fasting glucose >/= 126 mg/dl is diagnostic for diabetes. Fasting is defined as no caloric intake for at least 8 hours. Fasting glucose between 100 mg/dl to 125 mg/dl is diagnostic of prediabetes. In a patient with classic symptoms of hyperglycemia or hyperglycemic crisis, a random glucose >/= 200 mg/dl is diagnostic for diabetes. In the absence of unequivocal hyperglycemia, results should be confirmed by repeat testing. The classification and Diagnosis of Diabetes Diabetes Care 202; 46: S19-S40. Current interpretive data was last revised 2022. Calcium 8.2(L) 8.5 - 10.3 mg/dL [facility] Bilirubin, total 0.2 0.1 - 1.2 mg/dL [facility] Protein, pl 6.7 6.5 - 8.5 g/dL [facility] Albumin 2.8(L) 3.5 - 5.0 g/dL [facility] Alk phos 103 40 - 130 Units/L [facility] ALT 8 7 - 55 Units/L [facility] AST 25 10 - 50 Units/L [facility] Blood 10/25/2024 1:00 PM CDT 10/25/2024 6:13 PM CDT us Jose M West MD LAB BLOOD ORDERABLES Final Res ult [facility] Department [place] [address] * eGFR (10/18/2024 10:00 AM CDT) eGFR 81 >=60 mL/min/1. 73 m2 Comment: Interpretive Data Reference Interval Normal >/= 90 mL/min/1.73m2 Mildly decreased* 60 - 89 mL/min/1.73m2 Mildly to moderately decreased 45 - 59 mL/min/1.73m2 Moderately to severely decreased 30 - 44 mL/min/1.73m2 Severely decreased 15 - 29 mL/min/1.73m2 Kidney Failure < 15 mL/min/1.73m2 *Relative to young adult level Estimated glomerular filtration rate is determined by the 2020 CKD-EPI equation recommended by the National Kidney Foundation (A Unifying Approach to GFR Estimation: Recommendations of the NKF-ASK Task Force on Reassessing the Inclusion of Race in Diagnosing Kidney Disease, JASN 202). The CKD-EPI equation should not be used for patients with unstable renal function and has not been validated in children and those over 70. Current interpretive data was last reviewed 2021. Blood 10/18/2024 10:0 0 AM CDT 10/18/2024 2:08 PM CDT us Jose M West MD LAB BLOOD ORDERABLES Final Res ult [facility] Department [place] [address] * (ABNORMAL) Differential, auto (10/18/2024 10:00 AM CDT) Neutrophil abs 6.84(H) 1.50 - 6.50 K/cumm Imm gran abs 0.04 0.00 - 0.10 K/cumm [facility] Lymphocyte abs 2.07 0.80 - 3.30 K/cumm [facility] Monocyte abs 0.79 0.20 - 0.80 K/cumm [facility] Eosinophil abs 0.10 0.00 - 0.50 K/cumm [facility] Basophil abs 0.07 0.00 - 0.10 K/cumm [facility] Neutrophil pct 69.0 % [facility] Comment: Interpretive Data Percent cell count reference ranges are not reported, since discordance with absolute values may lead to misinterpretation of CBC data. Current Interpretive Data was last revised on 2017. Imm gran pct 0.4 % [facility] Comment: Interpretive Data Percent cell count reference ranges are not reported, since discordance with absolute values may lead to misinterpretation of CBC data. Current Interpretive Data was last revised on 2017. Lymphocyte pct 20.9 % [facility] Comment: Interpretive Data Percent cell count reference ranges are not reported, since discordance with absolute values may lead to misinterpretation of CBC data. Current Interpretive Data was last revised on 2017. Monocyte pct 8.0 % [facility] Comment: Interpretive Data Percent cell count reference ranges are not reported, since discordance with absolute values may lead to misinterpretation of CBC data. Current Interpretive Data was last revised on 2017. Eosinophil pct 1.0 % [facility] Comment: Interpretive Data Percent cell count reference ranges are not reported, since discordance with absolute values may lead to misinterpretation of CBC data. Current Interpretive Data was last revised on 2017. Basophil pct 0.7 % [facility] Comment: Interpretive Data Percent cell count reference ranges are not reported, since discordance with absolute values may lead to misinterpretation of CBC data. Current Interpretive Data was last revised on 2017. Blood 10/18/2024 10:0 0 AM CDT 10/18/2024 1:56 PM CDT us Jose M West MD LAB BLOOD ORDERABLES Final Res ult [facility] Department [place] [address] * (ABNORMAL) CBC with auto differential (10/18/2024 10:00 AM CDT) WBC 9.91(H) 3.80 - 9.90 K/cumm Hgb 8.6(L) 13.0 - 17.5 g/dL [facility] Hct 27.5(L) 38.9 - 50.3 % [facility] Plt 701(H) 150 - 400 K/cumm [facility] MPV 8.8(L) 9.1 - 12.3 fL [facility] RBC 3.24(L) 4.30 - 5.80 M/cumm [facility] MCV 84.9 81.3 - 96.4 fL [facility] MCH 26.5(L) 27.1 - 33.3 pg [facility] MCHC 31.3(L) 32.3 - 35.7 g/dL [facility] RDW CV 24.7(H) 11.1 - 14.9 % [facility] RDW SD 72.7(H) 35.7 - 48.1 fL [facility] NRBC abs 0.00 0.00 - 0.01 K/cumm [facility] Blood 10/18/2024 10:0 0 AM CDT 10/18/2024 1:56 PM CDT us Jose M West MD LAB BLOOD ORDERABLES Final Res ult [facility] Department [place] [address] * (ABNORMAL) Comprehensive metabolic panel (10/18/2024 10:00 AM CDT) Sodium 137 135 - 145 mmol/L Potassium, pl 3.2(L) 3.3 - 4.9 mmol/L [facility] Chloride 97 97 - 110 mmol/L [facility] CO2 28 22 - 32 mmol/L [facility] Anion gap 12 2 - 15 mmol/L [facility] BUN 11 6 - 25 mg/dL [facility] Creatinine 0.95 0.80 - 1.30 mg/dL [facility] Glucose 70 70 - 199 mg/dL [facility] Comment: Interpretive Data Fasting glucose >/= 126 mg/dl is diagnostic for diabetes. Fasting is defined as no caloric intake for at least 8 hours. Fasting glucose between 100 mg/dl to 125 mg/dl is diagnostic of prediabetes. In a patient with classic symptoms of hyperglycemia or hyperglycemic crisis, a random glucose >/= 200 mg/dl is diagnostic for diabetes. In the absence of unequivocal hyperglycemia, results should be confirmed by repeat testing. The classification and Diagnosis of Diabetes Diabetes Care 202; 46: S19-S40. Current interpretive data was last revised 2022. Calcium 8.5 8.5 - 10.3 mg/dL [facility] Bilirubin, total 0.3 0.1 - 1.2 mg/dL [facility] Protein, pl 7.0 6.5 - 8.5 g/dL [facility] Albumin 2.9(L) 3.5 - 5.0 g/dL [facility] Alk phos 91 40 - 130 Units/L [facility] ALT 10 7 - 55 Units/L [facility] AST 26 10 - 50 Units/L [facility] Blood 10/18/2024 10:0 0 AM CDT 10/18/2024 1:56 PM CDT us Jose M West MD LAB BLOOD ORDERABLES Final Res ult Performing Organization Address [facility]/ZIP Co de Phone Number [facility] Department [place] [address] * eGFR (10/13/2024 8:57 PM CDT) eGFR 90 >=60 mL/min/1. 73 m2 Comment: Interpretive Data Reference Interval Normal >/= 90 mL/min/1.73m2 Mildly decreased* 60 - 89 mL/min/1.73m2 Mildly to moderately decreased 45 - 59 mL/min/1.73m2 Moderately to severely decreased 30 - 44 mL/min/1.73m2 Severely decreased 15 - 29 mL/min/1.73m2 Kidney Failure < 15 mL/min/1.73m2 *Relative to young adult level Estimated glomerular filtration rate is determined by the 2020 CKD-EPI equation recommended by the National Kidney Foundation (A Unifying Approach to GFR Estimation: Recommendations of the NKF-ASK Task Force on Reassessing the Inclusion of Race in Diagnosing Kidney Disease, JASN 2020). The CKD-EPI equation should not be used for patients with unstable renal function and has not been validated in children and those over 70. Current interpretive data was last reviewed 2021. Blood 10/13/2024 8:57 PM CDT 10/13/2024 9:43 PM CDT us Vanessa Sam NP LAB BLOOD ORDERABLES Donita l Result Performing Organization Address City/[facility]/ZIP Co de Phone Number [facility] Department [place] [address] * (ABNORMAL) CBC without differential (10/13/2024 8:57 PM CDT) WBC 13.11(H) 3.80 - 9.90 K/cumm Hgb 9.0(L) 13.0 - 17.5 g/dL [facility] Hct 28.9(L) 38.9 - 50.3 % [facility] Plt 741(H) 150 - 400 K/cumm [facility] MPV 8.3(L) 9.1 - 12.3 fL [facility] RBC 3.53(L) 4.30 - 5.80 M/cumm [facility] MCV 81.9 81.3 - 96.4 fL [facility] MCH 25.5(L) 27.1 - 33.3 pg [facility] MCHC 31.1(L) 32.3 - 35.7 g/dL [facility] RDW CV 23.1(H) 11.1 - 14.9 % [facility] RDW SD 66.6(H) 35.7 - 48.1 fL [facility] NRBC abs 0.00 0.00 - 0.01 K/cumm [facility] Blood 10/13/2024 8:57 PM CDT 10/13/2024 9:42 PM CDT us Jonathan Alston NP LAB BLOOD ORDERABLES Fi nal Result Performing Organization Address City/[facility]/ZIP Co de Phone Number [facility] Department [place] [address] * (ABNORMAL) Phosphorus (10/13/2024 8:57 PM CDT) Pathologist [facility] Phosphorus, pl 2.1(L) 2.3 - 4.5 mg/dL Blood 10/13/2024 8:57 PM CDT 10/13/2024 9:43 PM CDT Deshawn Cornelius MD LAB BLOOD ORDERABLES Final Result [facility] [place] [address] * (ABNORMAL) Comprehensive metabolic panel (10/13/2024 8:57 PM CDT) Sodium 137 135 - 145 mmol/L Potassium, pl 3.8 3.3 - 4.9 mmol/L [facility] Chloride 99 97 - 110 mmol/L [facility] CO2 28 22 - 32 mmol/L [facility] Anion gap 10 2 - 15 mmol/L [facility] BUN 11 6 - 25 mg/dL [facility] Creatinine 0.81 0.80 - 1.30 mg/dL [facility] Glucose 102 70 - 199 mg/dL [facility] Comment: Interpretive Data Fasting glucose >/= 126 mg/dl is diagnostic for diabetes. Fasting is defined as no caloric intake for at least 8 hours. Fasting glucose between 100 mg/dl to 125 mg/dl is diagnostic of prediabetes. In a patient with classic symptoms of hyperglycemia or hyperglycemic crisis, a random glucose >/= 200 mg/dl is diagnostic for diabetes. In the absence of unequivocal hyperglycemia, results should be confirmed by repeat testing. The classification and Diagnosis of Diabetes Diabetes Care 2021; 46: S19-S40. Current interpretive data was last revised 2022. Calcium 8.3(L) 8.5 - 10.3 mg/dL [facility] Bilirubin, total 0.3 0.1 - 1.2 mg/dL [facility] Protein, pl 6.7 6.5 - 8.5 g/dL [facility] Albumin 2.7(L) 3.5 - 5.0 g/dL [facility] Alk phos 73 40 - 130 Units/L [facility] ALT 11 7 - 55 Units/L [facility] AST 21 10 - 50 Units/L [facility] Blood 10/13/2024 8:57 PM CDT 10/13/2024 9:43 PM CDT Vanessa Sam NP LAB BLOOD ORDERABLES Donita bharath Result [facility] Department [place] [address] * eGFR (10/12/2024 9:12 PM CDT) eGFR 89 >=60 mL/min/1. 73 m2 Comment: Interpretive Data Reference Interval Normal >/= 90 mL/min/1.73m2 Mildly decreased* 60 - 89 mL/min/1.73m2 Mildly to moderately decreased 45 - 59 mL/min/1.73m2 Moderately to severely decreased 30 - 44 mL/min/1.73m2 Severely decreased 15 - 29 mL/min/1.73m2 Kidney Failure < 15 mL/min/1.73m2 *Relative to young adult level Estimated glomerular filtration rate is determined by the 2020 CKD-EPI equation recommended by the National Kidney Foundation (A Unifying Approach to GFR Estimation: Recommendations of the NKF-ASK Task Force on Reassessing the Inclusion of Race in Diagnosing Kidney Disease, JASN 2020). The CKD-EPI equation should not be used for patients with unstable renal function and has not been validated in children and those over 70. Current interpretive data was last reviewed 2021. Blood 10/12/2024 9:12 PM CDT 10/12/2024 11:41 PM CDT Vanessa Sam NP LAB BLOOD ORDERABLES Donita sinha Result [facility] [place] [address] * (ABNORMAL) Differential, auto (10/12/2024 9:12 PM CDT) Neutrophil abs 6.14 1.50 - 6.50 K/cumm Imm gran abs 0.05 0.00 - 0.10 K/cumm [facility] Lymphocyte abs 2.32 0.80 - 3.30 K/cumm [facility] Monocyte abs 0.82(H) 0.20 - 0.80 K/cumm [facility] Eosinophil abs 0.38 0.00 - 0.50 K/cumm [facility] Basophil abs 0.06 0.00 - 0.10 K/cumm [facility] Neutrophil pct 62.9 % [facility] Comment: Interpretive Data Percent cell count reference ranges are not reported, since discordance with absolute values may lead to misinterpretation of CBC data. Current Interpretive Data was last revised on 2017. Imm gran pct 0.5 % [facility] Comment: Interpretive Data Percent cell count reference ranges are not reported, since discordance with absolute values may lead to misinterpretation of CBC data. Current Interpretive Data was last revised on 2017. Lymphocyte pct 23.7 % [facility] Comment: Interpretive Data Percent cell count reference ranges are not reported, since discordance with absolute values may lead to misinterpretation of CBC data. Current Interpretive Data was last revised on 2017. Monocyte pct 8.4 % [facility] Comment: Interpretive Data Percent cell count reference ranges are not reported, since discordance with absolute values may lead to misinterpretation of CBC data. Current Interpretive Data was last revised on 2017. Eosinophil pct 3.9 % [facility] Comment: Interpretive Data Percent cell count reference ranges are not reported, since discordance with absolute values may lead to misinterpretation of CBC data. Current Interpretive Data was last revised on 2017. Basophil pct 0.6 % [facility] Comment: Interpretive Data Percent cell count reference ranges are not reported, since discordance with absolute values may lead to misinterpretation of CBC data. Current Interpretive Data was last revised on 2017. Blood 10/12/2024 9:12 PM CDT 10/12/2024 11:48 PM CDT us Bianca Ceja NP LAB BLOOD ORDERABLES Final Result [facility] [place] [address] * (ABNORMAL) CBC with auto differential (10/12/2024 9:12 PM CDT) WBC 9.66 3.80 - 9.90 K/cumm Hgb 8.7(L) 13.0 - 17.5 g/dL [facility] Hct 28.7(L) 38.9 - 50.3 % [facility] Plt 732(H) 150 - 400 K/cumm [facility] MPV 8.6(L) 9.1 - 12.3 fL [facility] RBC 3.45(L) 4.30 - 5.80 M/cumm [facility] MCV 83.2 81.3 - 96.4 fL [facility] MCH 25.2(L) 27.1 - 33.3 pg [facility] MCHC 30.3(L) 32.3 - 35.7 g/dL [facility] RDW CV 23.0(H) 11.1 - 14.9 % [facility] RDW SD 67.7(H) 35.7 - 48.1 fL [facility] NRBC abs 0.00 0.00 - 0.01 K/cumm [facility] Blood 10/12/2024 9:12 PM CDT 10/12/2024 11:48 PM CDT us Bianca Ceja NP LAB BLOOD ORDERABLES Final Result [facility] Department [place] [address] * (ABNORMAL) CBC without differential (10/12/2024 9:12 PM CDT) WBC 9.66 3.80 - 9.90 K/cumm Hgb 8.7(L) 13.0 - 17.5 g/dL [facility] Hct 28.7(L) 38.9 - 50.3 % [facility] Plt 732(H) 150 - 400 K/cumm [facility] MPV 8.6(L) 9.1 - 12.3 fL [facility] RBC 3.45(L) 4.30 - 5.80 M/cumm [facility] MCV 83.2 81.3 - 96.4 fL [facility] MCH 25.2(L) 27.1 - 33.3 pg [facility] MCHC 30.3(L) 32.3 - 35.7 g/dL [facility] RDW CV 23.0(H) 11.1 - 14.9 % [facility] RDW SD 67.7(H) 35.7 - 48.1 fL [facility] NRBC abs 0.00 0.00 - 0.01 K/cumm [facility] Blood 10/12/2024 9:12 PM CDT 10/12/2024 11:45 PM CDT us Jonathan Alston NP LAB BLOOD ORDERAB[place] [address] * Phosphorus (10/12/2024 9:12 PM CDT) Phosphorus, pl 2.3 2.3 - 4.5 mg/dL Blood 10/12/2024 9:12 PM CDT 10/12/2024 11:41 PM CDT Deshawn Cornelius MD LAB BLOOD ORDERABLES Final Result Performing Organization Address City/[facility]/ZIP Co de Phone Number [facility] [place] [address] * Magnesium (10/12/2024 9:12 PM CDT) Magnesium 2.2 1.4 - 2.5 mg/dL Blood 10/12/2024 9:12 PM CDT 10/12/2024 11:41 PM CDT Deshawn Cornelius MD LAB BLOOD ORDERABLES Final Result Performing Organization Address City/[facility]/ZIP Co de Phone Number [facility] [place] [address] * (ABNORMAL) Comprehensive metabolic panel (10/12/2024 9:12 PM CDT) Pathologist [facility] Sodium 135 135 - 145 mmol/L Potassium, pl 3.4 3.3 - 4.9 mmol/L [facility] Chloride 99 97 - 110 mmol/L [facility] CO2 28 22 - 32 mmol/L [facility] Anion gap 8 2 - 15 mmol/L [facility] BUN 10 6 - 25 mg/dL [facility] Creatinine 0.82 0.80 - 1.30 mg/dL [facility] Glucose 75 70 - 199 mg/dL [facility] Comment: Interpretive Data Fasting glucose >/= 126 mg/dl is diagnostic for diabetes. Fasting is defined as no caloric intake for at least 8 hours. Fasting glucose between 100 mg/dl to 125 mg/dl is diagnostic of prediabetes. In a patient with classic symptoms of hyperglycemia or hyperglycemic crisis, a random glucose >/= 200 mg/dl is diagnostic for diabetes. In the absence of unequivocal hyperglycemia, results should be confirmed by repeat testing. The classification and Diagnosis of Diabetes Diabetes Care 2021; 46: S19-S40. Current interpretive data was last revised 2022. Calcium 8.3(L) 8.5 - 10.3 mg/dL [facility] Bilirubin, total 0.3 0.1 - 1.2 mg/dL [facility] Protein, pl 6.9 6.5 - 8.5 g/dL [facility] Albumin 2.7(L) 3.5 - 5.0 g/dL [facility] Alk phos 67 40 - 130 Units/L [facility] ALT 10 7 - 55 Units/L [facility] AST 22 10 - 50 Units/L [facility] Blood 10/12/2024 9:12 PM CDT 10/12/2024 11:41 PM CDT us Vanessa Sam NP LAB BLOOD ORDERABLES Donita sinha Result [facility] [place] [address] * eGFR (10/11/2024 8:48 PM CDT) eGFR >90 >=60 mL/min/1. 73 m2 Comment: Interpretive Data Reference Interval Normal >/= 90 mL/min/1.73m2 Mildly decreased* 60 - 89 mL/min/1.73m2 Mildly to moderately decreased 45 - 59 mL/min/1.73m2 Moderately to severely decreased 30 - 44 mL/min/1.73m2 Severely decreased 15 - 29 mL/min/1.73m2 Kidney Failure < 15 mL/min/1.73m2 *Relative to young adult level Estimated glomerular filtration rate is determined by the 2020 CKD-EPI equation recommended by the National Kidney Foundation (A Unifying Approach to GFR Estimation: Recommendations of the NKF-ASK Task Force on Reassessing the Inclusion of Race in Diagnosing Kidney Disease, JASN 2020). The CKD-EPI equation should not be used for patients with unstable renal function and has not been validated in children and those over 70. Current interpretive data was last reviewed 2021. Blood 10/11/2024 8:48 PM CDT 10/11/2024 10:09 PM CDT Vanessa Sam NP LAB BLOOD ORDERABLES Donita sinha Result [facility] Department [place] [address] * (ABNORMAL) CBC without differential (10/11/2024 8:48 PM CDT) Pathologist [facility] WBC 9.10 3.80 - 9.90 K/cumm Hgb 8.3(L) 13.0 - 17.5 g/dL [facility] Hct 27.0(L) 38.9 - 50.3 % [facility] Plt 662(H) 150 - 400 K/cumm [facility] MPV 8.7(L) 9.1 - 12.3 fL [facility] RBC 3.30(L) 4.30 - 5.80 M/cumm [facility] MCV 81.8 81.3 - 96.4 fL [facility] MCH 25.2(L) 27.1 - 33.3 pg [facility] MCHC 30.7(L) 32.3 - 35.7 g/dL [facility] RDW CV 23.0(H) 11.1 - 14.9 % [facility] RDW SD 66.7(H) 35.7 - 48.1 fL [facility] NRBC abs 0.00 0.00 - 0.01 K/cumm [facility] Blood 10/11/2024 8:48 PM CDT 10/11/2024 10:12 PM CDT us Jonathan Alston NP LAB BLOOD ORDERABLES Fi nal Result [facility] [place] [address] * Phosphorus (10/11/2024 8:48 PM CDT) Phosphorus, pl 2.4 2.3 - 4.5 mg/dL Blood 10/11/2024 8:48 PM CDT 10/11/2024 10:09 PM CDT Deshawn Cornelius MD LAB BLOOD ORDERABLES Final Result [facility] [place] [address] * Magnesium (10/11/2024 8:48 PM CDT) Magnesium 2.2 1.4 - 2.5 mg/dL Blood 10/11/2024 8:48 PM CDT 10/11/2024 10:09 PM CDT Deshawn Cornelius MD LAB BLOOD ORDERABLES Final Result [facility] [place] [address] * (ABNORMAL) Comprehensive metabolic panel (10/11/2024 8:48 PM CDT) Sodium 135 135 - 145 mmol/L Potassium, pl 3.4 3.3 - 4.9 mmol/L [facility] Chloride 99 97 - 110 mmol/L [facility] CO2 29 22 - 32 mmol/L [facility] Anion gap 7 2 - 15 mmol/L [facility] BUN 10 6 - 25 mg/dL [facility] Creatinine 0.76(L) 0.80 - 1.30 mg/dL [facility] Glucose 87 70 - 199 mg/dL [facility] Comment: Interpretive Data Fasting glucose >/= 126 mg/dl is diagnostic for diabetes. Fasting is defined as no caloric intake for at least 8 hours. Fasting glucose between 100 mg/dl to 125 mg/dl is diagnostic of prediabetes. In a patient with classic symptoms of hyperglycemia or hyperglycemic crisis, a random glucose >/= 200 mg/dl is diagnostic for diabetes. In the absence of unequivocal hyperglycemia, results should be confirmed by repeat testing. The classification and Diagnosis of Diabetes Diabetes Care 2021; 46: S19-S40. Current interpretive data was last revised 2022. Calcium 8.3(L) 8.5 - 10.3 mg/dL [facility] Bilirubin, total 0.3 0.1 - 1.2 mg/dL [facility] Protein, pl 6.8 6.5 - 8.5 g/dL [facility] Albumin 2.8(L) 3.5 - 5.0 g/dL [facility] Alk phos 64 40 - 130 Units/L [facility] ALT 10 7 - 55 Units/L [facility] AST 19 10 - 50 Units/L [facility] Blood 10/11/2024 8:48 PM CDT 10/11/2024 10:09 PM CDT Vanessa Sam NP LAB BLOOD ORDERABLES Donita sinha Result [facility] Department [place] [address] * XR Abdomen 1 View AP (10/11/2024 10:44 AM CDT) Anatomical Region Laterality Modality Body, Abdomen N/A Digital Radiogra phy 10/11/2024 11:4 7 AM CDT Impressions 10/11/2024 12:09 PM CDT Normal bowel gas pattern. Dictated by: Aaron Castrejon MD The radiology attending physician has personally reviewed this study, and had reviewed and/or edited this written report and agrees with it. Electronically signed by: Cata Hope M.D. Narrative 10/11/2024 12:09 PM CDT EXAMINATION: Abdomen, one view. HISTORY: Bowel obstruction. COMPARISON: None Procedure Note Cata Hope MD - 10/11/2024 EXAMINATION: Abdomen, one view. HISTORY: Bowel obstruction. COMPARISON: None IMPRESSION: Normal bowel gas pattern. Dictated by: Aaron Castrejon MD The radiology attending physician has personally reviewed this study, and had reviewed and/or edited this written report and agrees with it. Electronically signed by: Cata Hope M.D. Willow Layton [employer] IMG XR PROCEDURES Final Result * eGFR (10/10/2024 10:32 PM CDT) eGFR >90 >=60 mL/min/1. 73 m2 Comment: Interpretive Data Reference Interval Normal >/= 90 mL/min/1.73m2 Mildly decreased* 60 - 89 mL/min/1.73m2 Mildly to moderately decreased 45 - 59 mL/min/1.73m2 Moderately to severely decreased 30 - 44 mL/min/1.73m2 Severely decreased 15 - 29 mL/min/1.73m2 Kidney Failure < 15 mL/min/1.73m2 *Relative to young adult level Estimated glomerular filtration rate is determined by the 2020 CKD-EPI equation recommended by the National Kidney Foundation (A Unifying Approach to GFR Estimation: Recommendations of the NKF-ASK Task Force on Reassessing the Inclusion of Race in Diagnosing Kidney Disease, JASN 2020). The CKD-EPI equation should not be used for patients with unstable renal function and has not been validated in children and those over 70. Current interpretive data was last reviewed 2021. Blood 10/10/2024 10:3 2 PM CDT 10/10/2024 11:41 PM CDT Vanessa Sam [employer] LAB BLOOD ORDERABLES Donita l Result [facility] Department [place] [address] * (ABNORMAL) CBC without differential (10/10/2024 10:32 PM CDT) WBC 10.23(H) 3.80 - 9.90 K/cumm Hgb 8.6(L) 13.0 - 17.5 g/dL [facility] Comment:Hemoglobin delta due to surgical procedure. Spoke to Juventino Amaya RN at 0025 - RV Hct 27.8(L) 38.9 - 50.3 % [facility] Plt 638(H) 150 - 400 K/cumm [facility] MPV 8.6(L) 9.1 - 12.3 fL [facility] RBC 3.42(L) 4.30 - 5.80 M/cumm [facility] MCV 81.3 81.3 - 96.4 fL [facility] MCH 25.1(L) 27.1 - 33.3 pg [facility] MCHC 30.9(L) 32.3 - 35.7 g/dL [facility] RDW CV 23.1(H) 11.1 - 14.9 % [facility] RDW SD 66.2(H) 35.7 - 48.1 fL [facility] NRBC abs 0.00 0.00 - 0.01 K/cumm [facility] Blood 10/10/2024 10:3 2 PM CDT 10/10/2024 11:53 PM CDT Jonathan Alston B[employer] LAB BLOOD ORDERABLES Ed ited Result - Final Performing Organization Address City/[facility]/ZIP Co de Phone Number [facility] [place] [address] * Phosphorus (10/10/2024 10:32 PM CDT) Pathologist [facility] Phosphorus, pl 2.4 2.3 - 4.5 mg/dL Blood 10/10/2024 10:3 2 PM CDT 10/10/2024 11:41 PM CDT Deshawn Cornelius MD LAB BLOOD ORDERABLES Final Result Performing Organization Address City/[facility]/ZIP Co de Phone Number [facility] [place] [address] * Magnesium (10/10/2024 10:32 PM CDT) [facility] Magnesium 2.1 1.4 - 2.5 mg/dL Blood 10/10/2024 10:3 2 PM CDT 10/10/2024 11:41 PM CDT Deshawn Cornelius MD LAB BLOOD ORDERABLES Final Result Performing Organization Address City/[facility] [place] [address] * (ABNORMAL) Comprehensive metabolic panel (10/10/2024 10:32 PM CDT) [facility] Sodium 133(L) 135 - 145 mmol/L Potassium, pl 3.6 3.3 - 4.9 mmol/L [facility] Chloride 101 97 - 110 mmol/L [facility] CO2 28 22 - 32 mmol/L [facility] Anion gap 4 2 - 15 mmol/L [facility] BUN 11 6 - 25 mg/dL [facility] Creatinine 0.73(L) 0.80 - 1.30 mg/dL [facility] Glucose 91 70 - 199 mg/dL [facility] Comment: Interpretive Data Fasting glucose >/= 126 mg/dl is diagnostic for diabetes. Fasting is defined as no caloric intake for at least 8 hours. Fasting glucose between 100 mg/dl to 125 mg/dl is diagnostic of prediabetes. In a patient with classic symptoms of hyperglycemia or hyperglycemic crisis, a random glucose >/= 200 mg/dl is diagnostic for diabetes. In the absence of unequivocal hyperglycemia, results should be confirmed by repeat testing. The classification and Diagnosis of Diabetes Diabetes Care 2021; 46: S19-S40. Current interpretive data was last revised 2022. Calcium 8.3(L) 8.5 - 10.3 mg/dL [facility] Bilirubin, total 0.3 0.1 - 1.2 mg/dL [facility] Protein, pl 6.8 6.5 - 8.5 g/dL [facility] Albumin 3.0(L) 3.5 - 5.0 g/dL [facility] Alk phos 65 40 - 130 Units/L [facility] ALT 9 7 - 55 Units/L [facility] AST 21 10 - 50 Units/L [facility] Blood 10/10/2024 10:3 2 PM CDT 10/10/2024 11:41 PM CDT Vanessa Sam NP LAB BLOOD ORDERABLES Donita sinha Result [facility] Department [place] [address] * (ABNORMAL) CBC without differential (10/10/2024 3:25 PM CDT) WBC 6.06 3.80 - 9.90 K/cumm Hgb 12.6(L) 13.0 - 17.5 g/dL [facility] Hct 40.9 38.9 - 50.3 % [facility] Plt 478(H) 150 - 400 K/cumm [facility] MPV 8.7(L) 9.1 - 12.3 fL [facility] RBC 5.03 4.30 - 5.80 M/cumm [facility] MCV 81.3 81.3 - 96.4 fL [facility] MCH 25.0(L) 27.1 - 33.3 pg [facility] MCHC 30.8(L) 32.3 - 35.7 g/dL [facility] RDW CV 22.8(H) 11.1 - 14.9 % [facility] RDW SD 66.7(H) 35.7 - 48.1 fL [facility] NRBC abs 0.00 0.00 - 0.01 K/cumm [facility] Blood 10/10/2024 3:25 PM CDT 10/10/2024 3:57 PM CDT us Edie Licona [employer] LAB BLOOD ORDERABLES Donita l Result [facility] [place] [address] * Vancomycin level trough Please draw vanc trough 30 minutes before the 4th dose (10/10/2024 3:25 PM CDT) Vancomycin trough 16.3 10.0 - 20.0 mcg/mL Blood 10/10/2024 3:25 PM CDT 10/10/2024 3:39 PM CDT Narrative [facility] - 10/10/2024 4:10 PM CDT Please draw vanc trough 30 minutes before the 4th dose us Bianca Ceja [employer] LAB BLOOD ORDERABLES Final Result [facility] [place] [address] * X-ray cervical spine 2 or 3 views (10/10/2024 11:19 AM CDT) Anatomical Region Laterality Modality Spine N/A Computed Radiogr aphy 10/10/2024 11:3 8 AM CDT Impressions 10/10/2024 11:38 AM CDT 1. Unchanged posterior decompression and instrumented fusion from the occiput through C5 with unchanged erosions involving the craniocervical junction. Electronically signed by: Guilherme Handley M.D. Narrative 10/10/2024 11:38 AM CDT EXAMINATION: XR SPINE CERVICAL 2 OR 3 VIEWS HISTORY: s/p occiput to cervical fusion FINDINGS: 2 view examination of the cervical spine is read with comparison to 10/08/2024. Unchanged posterior decompression and instrumented spinal fusion from the occiput through C5. Instrumentation is intact. There is decreased and mild prevertebral soft tissue swelling but no listhesis or fracture. Unchanged erosions involving the C1 and C2 vertebral bodies in keeping with sequela of prior infection. Unchanged moderate multilevel degenerative disc disease in the nonfused segments of the lower cervical spine. Percutaneous drain remains in place. Procedure Note Danial Handley, Guilherme Estrada MD - 10/10/2024 EXAMINATION: XR SPINE CERVICAL 2 OR 3 VIEWS HISTORY: s/p occiput to cervical fusion FINDINGS: 2 view examination of the cervical spine is read with comparison to 10/08/2024. Unchanged posterior decompression and instrumented spinal fusion from the occiput through C5. Instrumentation is intact. There is decreased and mild prevertebral soft tissue swelling but no listhesis or fracture. Unchanged erosions involving the C1 and C2 vertebral bodies in keeping with sequela of prior infection. Unchanged moderate multilevel degenerative disc disease in the nonfused segments of the lower cervical spine. Percutaneous drain remains in place. IMPRESSION: 1. Unchanged posterior decompression and instrumented fusion from the occiput through C5 with unchanged erosions involving the craniocervical junction. Electronically signed by: Guilherme Handley M.D. Jonathan Alston [employer]LE[employer] IMG XR PROCEDURES Final Result * eGFR (10/09/2024 8:59 PM CDT) eGFR >90 >=60 mL/min/1. 73 m2 Comment: Interpretive Data Reference Interval Normal >/= 90 mL/min/1.73m2 Mildly decreased* 60 - 89 mL/min/1.73m2 Mildly to moderately decreased 45 - 59 mL/min/1.73m2 Moderately to severely decreased 30 - 44 mL/min/1.73m2 Severely decreased 15 - 29 mL/min/1.73m2 Kidney Failure < 15 mL/min/1.73m2 *Relative to young adult level Estimated glomerular filtration rate is determined by the 2020 CKD-EPI equation recommended by the National Kidney Foundation (A Unifying Approach to GFR Estimation: Recommendations of the NKF-ASK Task Force on Reassessing the Inclusion of Race in Diagnosing Kidney Disease, JASN 2020). The CKD-EPI equation should not be used for patients with unstable renal function and has not been validated in children and those over 70. Current interpretive data was last reviewed 2021. Blood 10/09/2024 8:59 PM CDT 10/09/2024 9:33 PM CDT Vanessa Sam NP LAB BLOOD ORDERABLES Donita sinha Result [facility] Department [place] [address] * (ABNORMAL) CBC without differential (10/09/2024 8:59 PM CDT) WBC 13.71(H) 3.80 - 9.90 K/cumm Hgb 8.9(L) 13.0 - 17.5 g/dL [facility] Hct 28.6(L) 38.9 - 50.3 % [facility] Plt 658(H) 150 - 400 K/cumm [facility] MPV 8.4(L) 9.1 - 12.3 fL [facility] RBC 3.48(L) 4.30 - 5.80 M/cumm [facility] MCV 82.2 81.3 - 96.4 fL [facility] MCH 25.6(L) 27.1 - 33.3 pg [facility] MCHC 31.1(L) 32.3 - 35.7 g/dL [facility] RDW CV 23.1(H) 11.1 - 14.9 % [facility] RDW SD 66.5(H) 35.7 - 48.1 fL [facility] NRBC abs 0.00 0.00 - 0.01 K/cumm [facility] Blood 10/09/2024 8:59 PM CDT 10/09/2024 9:34 PM CDT Edie Licona [employer] LAB BLOOD ORDERABLES Donita l Result Performing Organization Address [facility] Co de Phone Number [facility] Department [place] [address] * (ABNORMAL) Phosphorus (10/09/2024 8:59 PM CDT) [facility] Phosphorus, pl 2.0(L) 2.3 - 4.5 mg/dL Blood 10/09/2024 8:59 PM CDT 10/09/2024 9:33 PM CDT Deshawn Cornelius MD LAB BLOOD ORDERABLES Final Result Performing Organization Address [facility] Co de Phone Number [facility] Department [place] [address] * Magnesium (10/09/2024 8:59 PM CDT) [facility] Magnesium 2.2 1.4 - 2.5 mg/dL Blood 10/09/2024 8:59 PM CDT 10/09/2024 9:33 PM CDT Deshawn Cornelius MD LAB BLOOD ORDERABLES Final Result Performing Organization Address [facility] Co de Phone Number [facility] [place] [address] * (ABNORMAL) Comprehensive metabolic panel (10/09/2024 8:59 PM CDT) [facility] Sodium 136 135 - 145 mmol/L Potassium, pl 3.9 3.3 - 4.9 mmol/L [facility] Chloride 102 97 - 110 mmol/L [facility] CO2 27 22 - 32 mmol/L [facility] Anion gap 7 2 - 15 mmol/L [facility] BUN 13 6 - 25 mg/dL [facility] Creatinine 0.75(L) 0.80 - 1.30 mg/dL [facility] Glucose 105 70 - 199 mg/dL [facility] Comment: Interpretive Data Fasting glucose >/= 126 mg/dl is diagnostic for diabetes. Fasting is defined as no caloric intake for at least 8 hours. Fasting glucose between 100 mg/dl to 125 mg/dl is diagnostic of prediabetes. In a patient with classic symptoms of hyperglycemia or hyperglycemic crisis, a random glucose >/= 200 mg/dl is diagnostic for diabetes. In the absence of unequivocal hyperglycemia, results should be confirmed by repeat testing. The classification and Diagnosis of Diabetes Diabetes Care 202; 46: S19-S40. Current interpretive data was last revised 2022. Calcium 8.5 8.5 - 10.3 mg/dL [facility] Bilirubin, total 0.2 0.1 - 1.2 mg/dL [facility] Protein, pl 7.2 6.5 - 8.5 g/dL [facility] Albumin 2.7(L) 3.5 - 5.0 g/dL [facility] Alk phos 66 40 - 130 Units/L [facility] ALT 10 7 - 55 Units/L [facility] AST 17 10 - 50 Units/L [facility] Blood 10/09/2024 8:59 PM CDT 10/09/2024 9:33 PM CDT Vanessa Sam NP LAB BLOOD ORDERABLES Donita l Result Performing Organization Address City/[facility] Co de Phone Number [facility] [place] [address] * POCT glucose (10/09/2024 8:23 PM CDT) [facility] Glucose, POC 122 70 - 199 mg/dL Blood 10/09/2024 8:23 PM CDT 10/09/2024 8:23 PM CDT Deshawn Cornelius MD LAB POCT ORDERABLES - DEVICE Final Result Performing Organization Address City/State/[facility] Co de Phone Number [facility] [place] [address] * HIV 1/2 Antibody plus p24 Antigen Blood (10/09/2024 3:30 PM CDT) Pathologist [facility] HIV 1/2 ab + p24 ag Nonreactive Nonreactive Comment:Nonreactive for HIV- 1 antigen and HIV-1/HIV-2 antibodies. No laboratory evidence of HIV infection. If acute HIV infection is suspected, consider testing for HIV-1 RNA. Current interpretive data was last revised on 22. Blood 10/09/2024 3:30 PM CDT 10/09/2024 3:58 PM CDT Vanessa Sam LAB MICROBIOLOGY - GENERA L ORDERABLES Final Result Performing Organization Address [facility] de Phone Number HSEREEN [facility] [place] [address] * Hepatitis C antibody Blood (10/09/2024 3:30 PM CDT) [facility] Hep C Ab Nonreactive Nonreactive Comment:Antibodies to HCV no t detected. Does NOT exclude the possibility of recent exposure to HCV. Current interpretive data was last revised on 22 Blood 10/09/2024 3:30 PM CDT 10/09/2024 3:58 PM CDT Vanessa Sam LAB MICROBIOLOGY - GENERA L ORDERABLES Final Result Performing Organization Address [facility] Co de Phone Number SHEREEN [facility] [place] [address] * Hepatitis B core antibody, total Blood (10/09/2024 3:30 PM CDT) [facility] Hep B core IgG/IgM Nonreactive Nonreactive Blood 10/09/2024 3:30 PM CDT 10/09/2024 3:58 PM CDT Vanessa Sam NP LAB MICROBIOLOGY - GENERA L ORDERABLES Final Result Performing Organization Address [facility] de Phone Number [facility] [place] [address] * Hepatitis B surface antibody (immune status) Blood (10/09/2024 3:30 PM CDT) HBsAb (immune status) Nonreactive Comment:This result is consi stent with a lack of immunity to Hepatitis B Virus when used in the setting of routine screening. Current interpretative data was last revised on 22 Blood 10/09/2024 3:30 PM CDT 10/09/2024 3:58 PM CDT Vanessa Sam NP LAB MICROBIOLOGY - GENERA L ORDERABLES Final Result Performing Organization Address [facility] de Phone Number [facility] [place] [address] * Hepatitis B Surface Antigen Blood (10/09/2024 3:30 PM CDT) HepBsAg Nonreactive Nonreactive Blood 10/09/2024 3:30 PM CDT 10/09/2024 3:58 PM CDT Vanessa Savi Chiloquin NP LAB MICROBIOLOGY - GENERA L ORDERABLES Final Result Performing Organization Address [facility] de Phone Number [facility] [place] [address] * Blood culture Blood Antecubital, right (10/09/2024 10:05 AM CDT) Report Final Report: No growth Blood (Antecubital, right) 10/09/2024 10:05 AM CDT 10/09/2024 12:24 PM CDT Narrative SHEREEN PANIAGUA - 10/13/2024 4:00 PM CDT Received only aerobic blood culture bottle 1. Blood cultures are incubated for 4 days on a continuously monitored blood culture system. The first report of a negative culture is issued within 24 hours of receipt of the specimen in the laboratory. 2. Positive culture results are reported as soon as they are detected. 3. The most important factor for detection of microbes in the setting of bloodstream infection is the volume of blood submitted for culture. Failure to collect an optimal blood volume can result in false negative blood cultures. 4. For pediatric patients, the recommended blood volume to collect follows a weight based strategy. See the electronic test catalog for collection instructions. 5. For positive blood cultures, a rapid molecular test may be performed for organism identification using the aga ePlex blood culture identification panel for gram positive (BCID-GP) and gram negative (BCID-GN) organisms. This nucleic acid amplification test detects microbial DNA in positive blood culture broth. This assay has been cleared by the [place] Food and Drug Administration and its performance characteristics have been verified by the [facility] Microbiology Laboratory. For questions about this culture, contact the Microbiology Laboratory at [phone]. Interpretive data was last revised on 24. Deshawn Cornelius MD LAB MICROBIOLOGY - G [facility] ORDERABLES Final Result SHEREEN PANIAGUA [facility] Department [place] [address] * Blood culture Blood (10/09/2024 10:05 AM CDT) Report Final Report: No growth Blood 10/09/2024 10:0 5 AM CDT 10/09/2024 12:24 PM CDT Narrative SHEREEN [facility] - 10/13/2024 4:00 PM CDT Collection->Peripheral 1. Blood cultures are incubated for 4 days on a continuously monitored blood culture system. The first report of a negative culture is issued within 24 hours of receipt of the specimen in the laboratory. 2. Positive culture results are reported as soon as they are detected. 3. The most important factor for detection of microbes in the setting of bloodstream infection is the volume of blood submitted for culture. Failure to collect an optimal blood volume can result in false negative blood cultures. 4. For pediatric patients, the recommended blood volume to collect follows a weight based strategy. See the electronic test catalog for collection instructions. 5. For positive blood cultures, a rapid molecular test may be performed for organism identification using the aga ePlex blood culture identification panel for gram positive (BCID-GP) and gram negative (BCID-GN) organisms. This nucleic acid amplification test detects microbial DNA in positive blood culture broth. This assay has been cleared by the [place] Food and Drug Administration and its performance characteristics have been verified by the [facility] Microbiology Laboratory. For questions about this culture, contact the Microbiology Laboratory at [phone]. Interpretive data was last revised on 24. Deshawn Cornelius MD LAB MICROBIOLOGY - G [facility] ORDERABLES Final Result [facility] [place] [address] * eGFR (10/08/2024 9:09 PM CDT) eGFR >90 >=60 mL/min/1. 73 m2 Comment: Interpretive Data Reference Interval Normal >/= 90 mL/min/1.73m2 Mildly decreased* 60 - 89 mL/min/1.73m2 Mildly to moderately decreased 45 - 59 mL/min/1.73m2 Moderately to severely decreased 30 - 44 mL/min/1.73m2 Severely decreased 15 - 29 mL/min/1.73m2 Kidney Failure < 15 mL/min/1.73m2 *Relative to young adult level Estimated glomerular filtration rate is determined by the 2020 CKD-EPI equation recommended by the National Kid[employer] (A Unifying Approach to GFR Estimation: Recommendations of the NKF-ASK Task Force on Reassessing the Inclusion of Race in Diagnosing Kidney Disease, JASN 2020). The CKD-EPI equation should not be used for patients with unstable renal function and has not been validated in children and those over 70. Current interpretive data was last reviewed 2021. Blood 10/08/2024 9:09 PM CDT 10/08/2024 9:43 PM CDT Edie Licona [employer] LAB BLOOD ORDERABLES Donita l Result [facility] Department [place] [address] * (ABNORMAL) CBC without differential (10/08/2024 9:09 PM CDT) [facility] WBC 21.01(H) 3.80 - 9.90 K/cumm Hgb 9.0(L) 13.0 - 17.5 g/dL [facility] Hct 28.7(L) 38.9 - 50.3 % [facility] Plt 737(H) 150 - 400 K/cumm [facility] MPV 8.9(L) 9.1 - 12.3 fL [facility] RBC 3.55(L) 4.30 - 5.80 M/cumm [facility] MCV 80.8(L) 81.3 - 96.4 fL [facility] MCH 25.4(L) 27.1 - 33.3 pg [facility] MCHC 31.4(L) 32.3 - 35.7 g/dL [facility] RDW CV 23.4(H) 11.1 - 14.9 % [facility] RDW SD 65.5(H) 35.7 - 48.1 fL [facility] NRBC abs 0.00 0.00 - 0.01 K/cumm [facility] Blood 10/08/2024 9:09 PM CDT 10/08/2024 9:44 PM CDT Edie Licona [employer] LAB BLOOD ORDERABLES Donita l Result [facility] Department [place] [address] * Phosphorus (10/08/2024 9:09 PM CDT) [facility] Phosphorus, pl 2.5 2.3 - 4.5 mg/dL Blood 10/08/2024 9:09 PM CDT 10/08/2024 9:43 PM CDT Deshawn Cornelius MD LAB BLOOD ORDERABLES Final Result Performing Organization Address City/[facility]/ZIP Co de Phone Number [facility] Department [place] [address] * Magnesium (10/08/2024 9:09 PM CDT) [facility] Magnesium 2.4 1.4 - 2.5 mg/dL Blood 10/08/2024 9:09 PM CDT 10/08/2024 9:43 PM CDT Deshawn Cornelius MD LAB BLOOD ORDERABLES Final Result Performing Organization Address [facility] de Phone Number [facility] [place] [address] * (ABNORMAL) Basic metabolic panel (10/08/2024 9:09 PM CDT) [facility] Sodium 133(L) 135 - 145 mmol/L Potassium, pl 4.0 3.3 - 4.9 mmol/L [facility] Chloride 102 97 - 110 mmol/L [facility] CO2 27 22 - 32 mmol/L [facility] Anion gap 4 2 - 15 mmol/L [facility] BUN 17 6 - 25 mg/dL [facility] Creatinine 0.71(L) 0.80 - 1.30 mg/dL [facility] Glucose 124 70 - 199 mg/dL [facility] Comment: Interpretive Data Fasting glucose >/= 126 mg/dl is diagnostic for diabetes. Fasting is defined as no caloric intake for at least 8 hours. Fasting glucose between 100 mg/dl to 125 mg/dl is diagnostic of prediabetes. In a patient with classic symptoms of hyperglycemia or hyperglycemic crisis, a random glucose >/= 200 mg/dl is diagnostic for diabetes. In the absence of unequivocal hyperglycemia, results should be confirmed by repeat testing. The classification and Diagnosis of Diabetes Diabetes Care 2021; 46: S19-S40. Current interpretive data was last revised 2022. Calcium 8.8 8.5 - 10.3 mg/dL [facility] Blood 10/08/2024 9:09 PM CDT 10/08/2024 9:43 PM CDT us Edie Licona [employer] LAB BLOOD ORDERABLES Donita l Result Performing Organization Address [facility] Co de Phone Number [facility] [place] [address] * Vancomycin level trough Draw trough 30 minutes prior to 4th dose. (10/08/2024 2:34 PM CDT) Vancomycin trough 12.6 10.0 - 20.0 mcg/mL Blood 10/08/2024 2:34 PM CDT 10/08/2024 3:06 PM CDT Narrative [facility] - 10/08/2024 3:35 PM CDT Draw trough 30 minutes prior to 4th dose. Deshawn Cornelius MD LAB BLOOD ORDERABLES Final Result Performing Organization Address [facility] Co de Phone Number [facility] Department [place] [address] * XR Spine Cervical 2 or 3 Views (10/08/2024 1:50 PM CDT) Anatomical Region Laterality Modality Spine N/A Computed Radiogr aphy 10/08/2024 5:09 PM CDT Impressions 10/08/2024 5:09 PM CDT 1. 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 No radiographic evidence of hardware failure. 2. Nonspecific erosion of the left radial styloid. Differential includes crystalline and inflammatory arthropathy, although severe osteoarthritic changes are also a possibility given presence of large subchondral cysts elsewhere. 3. Interval occiput to C5 posterior fusion and decompression with unchanged appearance of the destructive process is centered at C1 and C2 with adjacent prevertebral soft tissue swelling. Electronically signed by: Yaw Leigh D.O. Narrative 10/08/2024 5:09 PM CDT EXAMINATION: XR WRIST BILATERAL 3 OR MORE VIEWS, XR SPINE CERVICAL 2 OR 3 VIEWS HISTORY: chronic hardware infection, follow-up cervical spine fusion COMPARISON: MRI 10/06/2024 FINDINGS: Left wrist: Severe joint space narrowing throughout the wrist, worst at the 1st and 2nd carpometacarpal joints, the triscaphe joint, and along the radiocarpal joint with possible widening of the scapholunate interval. Severe joint space narrowing also seen at the 2nd through 5th metacarpal phalangeal joints with erosions of the 2nd and 3rd metacarpal heads. Large erosion of the radial styloid with subchondral cysts in the distal radius. Questionable chronic fracture versus heterotopic ossification of the ulnar styloid. No acute fracture or dislocation. Soft tissue swelling about the wrist. Vascular calcifications. Right wrist: Postoperative changes of instrumented 4-corner arthrodesis. Intact hardware without evidence of loosening. Severe radioscaphoid and lunotriquetral joint space narrowing with large subchondral cysts and chronic osseous remodeling. Moderate osteoarthritis at the triscaphe and thumb carpometacarpal joints. No acute fracture or dislocation. Heterotopic ossification along the dorsal radioscaphoid joint. Mild soft tissue swelling about the wrist. Vascular calcifications. Cervical spine: Interval occiput to C5 posterior fusion and decompression. Intact hardware. Anticipated postoperative soft tissue gas in the posterior soft tissues. Destructive process centered at C1 and C2 is not significant changed compared to recent MRI, although is better evaluated on MRI. Persistent prevertebral soft tissue swelling centered in the upper cervical spine. Normal vertebral body heights. Moderate C5-C7 degenerative disc changes. Procedure Note Yaw Leigh DO - 10/08/2024 EXAMINATION: XR WRIST BILATERAL 3 OR MORE VIEWS, XR SPINE CERVICAL 2 OR 3 VIEWS HISTORY: chronic hardware infection, follow-up cervical spine fusion COMPARISON: MRI 10/06/2024 FINDINGS: Left wrist: Severe joint space narrowing throughout the wrist, worst at the 1st and 2nd carpometacarpal joints, the triscaphe joint, and along the radiocarpal joint with possible widening of the scapholunate interval. Severe joint space narrowing also seen at the 2nd through 5th metacarpal phalangeal joints with erosions of the 2nd and 3rd metacarpal heads. Large erosion of the radial styloid with subchondral cysts in the distal radius. Questionable chronic fracture versus heterotopic ossification of the ulnar styloid. No acute fracture or dislocation. Soft tissue swelling about the wrist. Vascular calcifications. Right wrist: Postoperative changes of instrumented 4-corner arthrodesis. Intact hardware without evidence of loosening. Severe radioscaphoid and lunotriquetral joint space narrowing with large subchondral cysts and chronic osseous remodeling. Moderate osteoarthritis at the triscaphe and thumb carpometacarpal joints. No acute fracture or dislocation. Heterotopic ossification along the dorsal radioscaphoid joint. Mild soft tissue swelling about the wrist. Vascular calcifications. Cervical spine: Interval occiput to C5 posterior fusion and decompression. Intact hardware. Anticipated postoperative soft tissue gas in the posterior soft tissues. Destructive process centered at C1 and C2 is not significant changed compared to recent MRI, although is better evaluated on MRI. Persistent prevertebral soft tissue swelling centered in the upper cervical spine. Normal vertebral body heights. Moderate C5-C7 degenerative disc changes. IMPRESSION: 1. 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 No radiographic evidence of hardware failure. 2. Nonspecific erosion of the left radial styloid. Differential includes crystalline and inflammatory arthropathy, although severe osteoarthritic changes are also a possibility given presence of large subchondral cysts elsewhere. 3. Interval occiput to C5 posterior fusion and decompression with unchanged appearance of the destructive process is centered at C1 and C2 with adjacent prevertebral soft tissue swelling. Electronically signed by: Yaw Leigh D.O. Edie Licona NP IMG XR PROCEDURES Final R esult * XR Wrist Bilateral 3 or More Views (10/08/2024 1:49 PM CDT) Anatomical Region Laterality Modality Upper Extremities, Wrist Compute d Radiography 10/08/2024 5:09 PM CDT Impressions 10/08/2024 5:09 PM CDT 1. 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 No radiographic evidence of hardware failure. 2. Nonspecific erosion of the left radial styloid. Differential includes crystalline and inflammatory arthropathy, although severe osteoarthritic changes are also a possibility given presence of large subchondral cysts elsewhere. 3. Interval occiput to C5 posterior fusion and decompression with unchanged appearance of the destructive process is centered at C1 and C2 with adjacent prevertebral soft tissue swelling. Electronically signed by: Yaw Leigh D.O. Narrative 10/08/2024 5:09 PM CDT EXAMINATION: XR WRIST BILATERAL 3 OR MORE VIEWS, XR SPINE CERVICAL 2 OR 3 VIEWS HISTORY: chronic hardware infection, follow-up cervical spine fusion COMPARISON: MRI 10/06/2024 FINDINGS: Left wrist: Severe joint space narrowing throughout the wrist, worst at the 1st and 2nd carpometacarpal joints, the triscaphe joint, and along the radiocarpal joint with possible widening of the scapholunate interval. Severe joint space narrowing also seen at the 2nd through 5th metacarpal phalangeal joints with erosions of the 2nd and 3rd metacarpal heads. Large erosion of the radial styloid with subchondral cysts in the distal radius. Questionable chronic fracture versus heterotopic ossification of the ulnar styloid. No acute fracture or dislocation. Soft tissue swelling about the wrist. Vascular calcifications. Right wrist: Postoperative changes of instrumented 4-corner arthrodesis. Intact hardware without evidence of loosening. Severe radioscaphoid and lunotriquetral joint space narrowing with large subchondral cysts and chronic osseous remodeling. Moderate osteoarthritis at the triscaphe and thumb carpometacarpal joints. No acute fracture or dislocation. Heterotopic ossification along the dorsal radioscaphoid joint. Mild soft tissue swelling about the wrist. Vascular calcifications. Cervical spine: Interval occiput to C5 posterior fusion and decompression. Intact hardware. Anticipated postoperative soft tissue gas in the posterior soft tissues. Destructive process centered at C1 and C2 is not significant changed compared to recent MRI, although is better evaluated on MRI. Persistent prevertebral soft tissue swelling centered in the upper cervical spine. Normal vertebral body heights. Moderate C5-C7 degenerative disc changes. Procedure Note Yaw Leigh DO - 10/08/2024 EXAMINATION: XR WRIST BILATERAL 3 OR MORE VIEWS, XR SPINE CERVICAL 2 OR 3 VIEWS HISTORY: chronic hardware infection, follow-up cervical spine fusion COMPARISON: MRI 10/06/2024 FINDINGS: Left wrist: Severe joint space narrowing throughout the wrist, worst at the 1st and 2nd carpometacarpal joints, the triscaphe joint, and along the radiocarpal joint with possible widening of the scapholunate interval. Severe joint space narrowing also seen at the 2nd through 5th metacarpal phalangeal joints with erosions of the 2nd and 3rd metacarpal heads. Large erosion of the radial styloid with subchondral cysts in the distal radius. Questionable chronic fracture versus heterotopic ossification of the ulnar styloid. No acute fracture or dislocation. Soft tissue swelling about the wrist. Vascular calcifications. Right wrist: Postoperative changes of instrumented 4-corner arthrodesis. Intact hardware without evidence of loosening. Severe radioscaphoid and lunotriquetral joint space narrowing with large subchondral cysts and chronic osseous remodeling. Moderate osteoarthritis at the triscaphe and thumb carpometacarpal joints. No acute fracture or dislocation. Heterotopic ossification along the dorsal radioscaphoid joint. Mild soft tissue swelling about the wrist. Vascular calcifications. Cervical spine: Interval occiput to C5 posterior fusion and decompression. Intact hardware. Anticipated postoperative soft tissue gas in the posterior soft tissues. Destructive process centered at C1 and C2 is not significant changed compared to recent MRI, although is better evaluated on MRI. Persistent prevertebral soft tissue swelling centered in the upper cervical spine. Normal vertebral body heights. Moderate C5-C7 degenerative disc changes. IMPRESSION: 1. 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 No radiographic evidence of hardware failure. 2. Nonspecific erosion of the left radial styloid. Differential includes crystalline and inflammatory arthropathy, although severe osteoarthritic changes are also a possibility given presence of large subchondral cysts elsewhere. 3. Interval occiput to C5 posterior fusion and decompression with unchanged appearance of the destructive process is centered at C1 and C2 with adjacent prevertebral soft tissue swelling. Electronically signed by: Yaw Leigh D.O. Deshawn Cornelius MD IMG XR PROCEDURES Fi nal Result * Infection Prevention Ayaka auris PCR, surveillance Axilla/Groin (10/08/2024 10:21 AM CDT) Ayaka auris DNA Not Detected Not Detected [facility] Comment: Interpretive Data Testing performed by [facility] Molecular Infectious Disease Laboratory using the Doron aga 6800 Ayaka auris assay. This assay detects DNA from Ayaka auris using Real-Time PCR. This assay is laboratory developed and is not cleared by the [facility] Food and Drug Administration. The performance characteristics have been verified by the [facility] Molecular Infectious Disease Laboratory. Axilla/Groin 10/08/2024 10:2 1 AM CDT 10/08/2024 11:28 AM CDT Narrative SHEREEN [facility] - 10/09/2024 12:15 AM CDT Order placed by [facility] due to ring surveillance. us Instant Order Generic Provider LAB MICROBIOLOGY - GENERAL ORDERABLES Final Result Performing Organization Address City/[facility]/ZIP Co de Phone Number [facility] [place] [address] [facility] * Histoplasma Antigen Urine (10/08/2024 10:21 AM CDT) Histo Ag Ur result None Detected None Detected Histo Ag Ur interp Negative Negative [facility] Comment: Result Interpretation: Reference interval: None Detected Results reported as ng/mL in 0.20 - 20.00 ng/mL range Results above 20.00 ng/mL are reported as 'Positive, Above the Limit of Quantification' Testing Performed by: [employer], [address] [place] [address] [place] [address]. This test was developed and its performance characteristics determined by [employer]. It has not been cleared or approved by the FDA; however, FDA clearance or approval is not currently required for clinical use. The results are not intended to be used as the sole means for clinical diagnosis or patient management decisions. Interpretative data updated 07/23/2020 Urine 10/08/2024 10:2 1 AM CDT 10/08/2024 12:32 PM CDT Deshawn Cornelius MD LAB MICROBIOLOGY - G ENERAL ORDERABLES Final Result [facility] [place] [address] * Blood culture Blood (10/08/2024 10:21 AM CDT) Report Final Report: No growth Blood 10/08/2024 10:2 1 AM CDT 10/08/2024 11:24 AM CDT Narrative SHEREEN RESTREPO - 10/12/2024 12:00 PM CDT Collection->Peripheral 1. Blood cultures are incubated for 4 days on a continuously monitored blood culture system. The first report of a negative culture is issued within 24 hours of receipt of the specimen in the laboratory. 2. Positive culture results are reported as soon as they are detected. 3. The most important factor for detection of microbes in the setting of bloodstream infection is the volume of blood submitted for culture. Failure to collect an optimal blood volume can result in false negative blood cultures. 4. For pediatric patients, the recommended blood volume to collect follows a weight based strategy. See the electronic test catalog for collection instructions. 5. For positive blood cultures, a rapid molecular test may be performed for organism identification using the aga ePlex blood culture identification panel for gram positive (BCID-GP) and gram negative (BCID-GN) organisms. This nucleic acid amplification test detects microbial DNA in positive blood culture broth. This assay has been cleared by the [place] Food and Drug Administration and its performance characteristics have been verified by the [facility] Microbiology Laboratory. For questions about this culture, contact the Microbiology Laboratory at [phone]. Interpretive data was last revised on 24. Deshawn Cornelius MD LAB MICROBIOLOGY - G ENERAL ORDERABLES Final Result SHEREEN PANIAGUA [facility] [place] [address] * Critical Care (10/08/2024 7:37 AM CDT) Narrative Nik Pedroza MD - 10/08/2024 7:37 AM CDT Nik Pedroza MD 10/08/2024 7:38 AM Critical Care Performed by: Nik Pedroza MD Authorized by: Nik Pedroza MD CRITICAL CARE: Team: SICU BLUE Shift: AM Level of Billing: Critical Care My time spent with this patient was 31 minutes: Critical Provider Statement: I have seen and examined the patient on this day of service. I have reviewed and confirmed the history, physical exam, laboratory and radiologic data as documented in the signed ICU note. I have reviewed and discussed my treatment plan with the ICU team and other medical/retail client solutions consultant staff, making frequent assessments and decisions regarding this patient's complex medical care. Critical Care time was exclusive of time spent performing separately billed procedures, treating other patients, and teaching. This time was in addition to and separate from critical care provided by other practitioners in my group on this day of service. Critical Care was necessary to treat or prevent imminent or life-threatening deterioration of the following conditions: Spinal cord injury/spine fracture This time was spent by me doing the following: Serial bedside patient exams Acute pain control and Frequent neurologic exams Active and frequent reassessment of respiratory status and oxygen requirements Review of prior or current culture/gram stain results I spent time reviewing and interpreting data from bedside monitors, laboratory results, and imaging, I spent time discussing the management of this critically ill patient with consultants and the medical staff and I spent time documenting in the medical record us Nik Pedroza MD IN CLINIC/BEDSIDE ORDERABLES Fin al Result * XR Chest 1 View (10/07/2024 9:48 PM CDT) Anatomical Region Laterality Modality Body, Chest N/A Digital Radiogra phy 10/08/2024 8:35 AM CDT Impressions 10/08/2024 11:11 AM CDT Comparison made with CT dated 08/09/2024. Left pleural apical nodule is seen to better advantage on prior CT. No pleural effusion. No pneumothorax. Cardiac contours are unchanged. There is aortic atherosclerotic disease. Multiple additional pulmonary nodules, including right apical cavitary nodule, are better seen on prior chest CT.. Dictated by: Eloy Olivera MD The radiology attending physician has personally reviewed this study, and had reviewed and/or edited this written report and agrees with it. Electronically signed by: Mitch Rao M.D. Narrative 10/08/2024 11:11 AM CDT EXAMINATION: 1 view chest radiograph Procedure Note Mitch Rao MD - 10/08/2024 EXAMINATION: 1 view chest radiograph IMPRESSION: Comparison made with CT dated 08/09/2024. Left pleural apical nodule is seen to better advantage on prior CT. No pleural effusion. No pneumothorax. Cardiac contours are unchanged. There is aortic atherosclerotic disease. Multiple additional pulmonary nodules, including right apical cavitary nodule, are better seen on prior chest CT.. Dictated by: Eloy Olivera MD The radiology attending physician has personally reviewed this study, and had reviewed and/or edited this written report and agrees with it. Electronically signed by: Mitch Rao M.D. us Edie Licona BLEACH MAKER IMG XR PROCEDURES Final R esult * (ABNORMAL) Urinalysis reflex to microscopic (10/07/2024 8:08 PM CDT) Color, ur Straw Yellow Clarity, ur Clear Clear [facility] Specific gravity, ur 1.026 1.003 - 1.030 [facility] pH, urine 6.0 [facility] Comment: Interpretive Data U rine pH is affected by diet, medications, systemic acid-base disturbances, and renal tubular function. pH may affect urinary stone formation. For example, urine pH below 6.0 may help reduce the tendency for calcium phosphate stones and pH greater than 6.0 may reduce the tendency for uric acid stone formation. Source: [facility] [place] Current Interpretive Data was last revised on 2017 Protein, ur ql 1+(A) Negative [facility] Glucose, ur ql Negative Negative [facility] Ketones, ur 1+(A) Negative [facility] Bilirubin, ur Negative Negative [facility] Blood, ur Trace(A) Negative [facility] Urobilinogen, ur <2.0 <2.0 mg/dL [facility] Nitrite, ur Negative Negative [facility] Leukocyte esterase, ur Negative Negative [facility] UA reflex comment Reflex to microscopic UA will be performed. [facility] Urine 10/07/2024 8:08 PM CDT 10/07/2024 9:40 PM CDT us Chong Hutchinson NP LAB URINE ORDERABLES Fi nal Result Performing Organization Address [facility] Co de Phone Number [facility] Department [place] [address] * (ABNORMAL) Urinalysis, microscopic only (10/07/2024 8:08 PM CDT) WBC, ur 6-10(A) 0 - 5 /HPF RBC, ur 21-50(A) 0 - 2 /HPF [facility] Epithelial cells, squamous, ur 1-5 0 - 5 /HPF [facility] Bacteria, ur Trace(A) [facility] Mucous, ur Present(A) [facility] Uric acid crystals, ur Trace(A) [facility] Hyaline casts, ur 1-5 0 - 10 /LPF [facility] Urine 10/07/2024 8:08 PM CDT 10/07/2024 9:40 PM CDT us Chong Hutchinson NP LAB URINE ORDERABLES Fi nal Result Performing Organization Address [facility] Co de Phone Number SHEREEN [facility] Department [place] [address] * Critical Care (10/07/2024 7:38 PM CDT) Narrative Jens Stewart MD - 10/07/2024 7:38 PM CDT Jens Stewart MD 10/08/2024 6:11 AM Critical Care Performed by: Jens Stewart MD Authorized by: Jens Stewart MD CRITICAL CARE: Team: SICU BLUE Shift: PM Level of Billing: Critical Care My time spent with this patient was 30 minutes: Critical Provider Statement: I have seen and examined the patient on this day of service. I have reviewed and confirmed the history, physical exam, laboratory and radiologic data as documented in the signed ICU note. I have reviewed and discussed my treatment plan with the ICU team and other medical/retail client solutions consultant staff, making frequent assessments and decisions regarding this patient's complex medical care. Critical Care time was exclusive of time spent performing separately billed procedures, treating other patients, and teaching. This time was in addition to and separate from critical care provided by other practitioners in my group on this day of service. Critical Care was necessary to treat or prevent imminent or life-threatening deterioration of the following conditions: us Jens Stewart MD IN CLINIC/BEDSIDE URI ADAMES Final Result * POCT glucose (10/07/2024 7:05 PM CDT) Glucose, POC 124 70 - 199 mg/dL Blood 10/07/2024 7:05 PM CDT 10/07/2024 7:05 PM CDT us Deshawn Cornelius MD LAB POCT ORDERABLES - DEVICE Final Result [facility] Department [place] [address] * Q fever ab w rflx to immunofluorescence Blood (10/07/2024 7:02 PM CDT) [facility] Q fever ab scrn w titer rflx ser Negative Negative [facility] Comment: No antibodies to Q Fever (Coxiella burnetii) detected. Repeat testing on a new sample collected in 2-3 weeks if acute Q Fever is suspected. ADDITIONAL INFORMATION This test was developed and its performance characteristics determined by [facility] in a manner consistent with CLIA requirements. This test has not been cleared or approved by the U.S. Food and Drug Administration. Test Performed by: [facility] - [address] [address] Waste Management Engineer: Leia Ocasio Ph.D.; CLIA# [id number] Blood 10/07/2024 7:02 PM CDT 10/07/2024 7:57 PM CDT us Kelli Landry MD LAB MICROBIOLOGY - GENE RAL ORDERABLES Final Result Performing Organization Address City/[facility] Co de Phone Number [facility] [place] [address] [facility] * Histoplasma Antibody Blood (10/07/2024 7:02 PM CDT) Histoplasma Ab, yeast CF Negative Negative [facility] Lab Histoplasma Ab, Immunodiffusion Negative Negative [facility] Comment: A negative complement fixation and immunodiffusion (CF/ID) result does not exclude the diagnosis of histoplasmosis. Repeat testing by CF/ID in 1-2 weeks if clinically indicated. Test Performed by: [facility] [address] [place] [address] Waste Management Engineer: Leia Ocasio Ph.D.; CLIA# [id number] Blood 10/07/2024 7:02 PM CDT 10/07/2024 9:15 PM CDT us Kelli Landry MD LAB MICROBIOLOGY - GENE RAL ORDERABLES Final Result Performing Organization Address [facility] Co de Phone Number [facility] [address] [facility] * Potassium, whole blood (10/07/2024 7:02 PM CDT) Pathologist [facility] Potassium, bld 4.4 3.3 - 4.9 mmol/L Blood 10/07/2024 7:02 PM CDT 10/07/2024 7:10 PM CDT us Chong Hutchinson NP LAB BLOOD ORDERABLES Fi nal Result Performing Organization Address City/[facility] Co de Phone Number [facility] Department [place] [address] * Calcium, ionized, whole blood (10/07/2024 7:02 PM CDT) Ca, ionized, bld 5.05 4.50 - 5.10 mg/dL Blood 10/07/2024 7:02 PM CDT 10/07/2024 7:10 PM CDT Chong Hutchinson NP LAB BLOOD ORDERABLES Fi nal Result Performing Organization Address City/[facility] Co de Phone Number [facility] [address] * eGFR (10/07/2024 7:02 PM CDT) eGFR >90 >=60 mL/min/1. 73 m2 Comment: Interpretive Data Reference Interval Normal >/= 90 mL/min/1.73m2 Mildly decreased* 60 - 89 mL/min/1.73m2 Mildly to moderately decreased 45 - 59 mL/min/1.73m2 Moderately to severely decreased 30 - 44 mL/min/1.73m2 Severely decreased 15 - 29 mL/min/1.73m2 Kidney Failure < 15 mL/min/1.73m2 *Relative to young adult level Estimated glomerular filtration rate is determined by the 2020 CKD-EPI equation recommended by the National Kidney Foundation (A Unifying Approach to GFR Estimation: Recommendations of the NKF-ASK Task Force on Reassessing the Inclusion of Race in Diagnosing Kidney Disease, JASN 2020). The CKD-EPI equation should not be used for patients with unstable renal function and has not been validated in children and those over 70. Current interpretive data was last reviewed 2021. Blood 10/07/2024 7:02 PM CDT 10/07/2024 7:32 PM CDT us Chong Hutchinson NP LAB BLOOD ORDERABLES Fi nal Result Performing Organization Address City/[facility]/ZIP Co de Phone Number [facility] [place] [address] * (ABNORMAL) Lactate, whole blood (10/07/2024 7:02 PM CDT) Lactate, bld 0.5(L) 0.7 - 2.0 mmol/L Comment:REVIEWED Blood 10/07/2024 7:02 PM CDT 10/07/2024 7:10 PM CDT Chong Hutchinson LAB BLOOD ORDERABLES Fi nal Result Performing Organization Address [facility] de Phone Number [facility] [place] [address] * aPTT (10/07/2024 7:02 PM CDT) aPTT 33 28 - 38 sec Comment: Interpretive Data Heparin therapeutic range: 66.0 - 100.0 seconds. Range based on correlation with therapeutic heparin activity range of 0.3 - 0.7 Units/mL. Current interpretive data was last revised on 2023. Blood 10/07/2024 7:02 PM CDT 10/07/2024 7:20 PM CDT Chong Hutchinson NP LAB BLOOD ORDERABLES Fi nal Result Performing Organization Address [facility] de Phone Number [facility] [place] [address] * (ABNORMAL) Protime-INR (10/07/2024 7:02 PM CDT) PT 15.0(H) 9.7 - 13.0 sec INR 1.38(H) 0.90 - 1.20 [facility] Comment: Interpretive data Oral anticoagulant therapeutic ranges: Venous thromboembolism prophylaxis or treatment: 2.0-3.0 CARDIOLOGY Standard range: 2.0-3.0 High-intensity range: 2.5-3.5 Refer to indication-specific guidelines for appropriate target ranges for prosthetic heart valve replacement. Current interpretive data was last revised on 2019. Blood 10/07/2024 7:02 PM CDT 10/07/2024 7:20 PM CDT us Chong Hutchinson BLEACH MAKER LAB BLOOD ORDERABLES Fi nal Result Performing Organization Address City/[facility]/ZIP Co de Phone Number [facility] Department [place] [address] * (ABNORMAL) CBC without differential (10/07/2024 7:02 PM CDT) WBC 14.98(H) 3.80 - 9.90 K/cumm Hgb 9.0(L) 13.0 - 17.5 g/dL [facility] Hct 29.1(L) 38.9 - 50.3 % [facility] Plt 594(H) 150 - 400 K/cumm [facility] MPV 8.7(L) 9.1 - 12.3 fL [facility] RBC 3.56(L) 4.30 - 5.80 M/cumm [facility] MCV 81.7 81.3 - 96.4 fL [facility] MCH 25.3(L) 27.1 - 33.3 pg [facility] MCHC 30.9(L) 32.3 - 35.7 g/dL [facility] RDW CV 23.5(H) 11.1 - 14.9 % [facility] RDW SD 68.2(H) 35.7 - 48.1 fL [facility] NRBC abs 0.00 0.00 - 0.01 K/cumm [facility] Blood 10/07/2024 7:02 PM CDT 10/07/2024 7:32 PM CDT us Chong Hutchinson NP LAB BLOOD ORDERABLES Fi nal Result Performing Organization Address City/[facility]/ZIP Co de Phone Number [facility] Department [place] [address] * Phosphorus (10/07/2024 7:02 PM CDT) [facility] Phosphorus, pl 3.7 2.3 - 4.5 mg/dL Blood 10/07/2024 7:02 PM CDT 10/07/2024 7:32 PM CDT Chong Hutchinson BLEACH MAKER LAB BLOOD ORDERABLES Fi nal Result Performing Organization Address City/[facility]/ZIP Co de Phone Number [facility] Department [place] [address] * Magnesium (10/07/2024 7:02 PM CDT) [facility] Magnesium 2.1 1.4 - 2.5 mg/dL Blood 10/07/2024 7:02 PM CDT 10/07/2024 7:32 PM CDT Chong Hutchinson BLEACH MAKER LAB BLOOD ORDERABLES Fi nal Result Performing Organization Address [facility] de Phone Number [facility] [place] [address] * (ABNORMAL) Basic metabolic panel (10/07/2024 7:02 PM CDT) [facility] Sodium 136 135 - 145 mmol/L Potassium, pl 4.3 3.3 - 4.9 mmol/L [facility] Chloride 103 97 - 110 mmol/L [facility] CO2 23 22 - 32 mmol/L [facility] Anion gap 10 2 - 15 mmol/L [facility] BUN 14 6 - 25 mg/dL [facility] Creatinine 0.71(L) 0.80 - 1.30 mg/dL [facility] Glucose 125 70 - 199 mg/dL [facility] Comment: Interpretive Data Fasting glucose >/= 126 mg/dl is diagnostic for diabetes. Fasting is defined as no caloric intake for at least 8 hours. Fasting glucose between 100 mg/dl to 125 mg/dl is diagnostic of prediabetes. In a patient with classic symptoms of hyperglycemia or hyperglycemic crisis, a random glucose >/= 200 mg/dl is diagnostic for diabetes. In the absence of unequivocal hyperglycemia, results should be confirmed by repeat testing. The classification and Diagnosis of Diabetes Diabetes Care 2021; 46: S19-S40. Current interpretive data was last revised 2022. Calcium 8.3(L) 8.5 - 10.3 mg/dL [facility] Blood 10/07/2024 7:02 PM CDT 10/07/2024 7:32 PM CDT us Chong Hutchinson NP LAB BLOOD ORDERABLES Fi nal Result [facility] Department [place] [address] * Critical Care (10/07/2024 6:12 PM CDT) Narrative Jens Stewart MD - 10/07/2024 6:12 PM CDT Jens Stewart MD 10/08/2024 6:08 AM Critical Care Performed by: Chong Hutchinson NP Authorized by: Chong Hutchinson NP CRITICAL CARE: Team: SICU BLUE Shift: PM Level of Billing: Critical Care My time spent with this patient was 90 minutes: Critical Provider Statement: I have seen and examined the patient on this day of service. I have reviewed and confirmed the history, physical exam, laboratory and radiologic data as documented in the signed ICU note. I have reviewed and discussed my treatment plan with the ICU team and other medical/retail client solutions consultant staff, making frequent assessments and decisions regarding this patient's complex medical care. Critical Care time was exclusive of time spent performing separately billed procedures, treating other patients, and teaching. This time was in addition to and separate from critical care provided by other practitioners in my group on this day of service. Critical Care was necessary to treat or prevent imminent or life-threatening deterioration of the following conditions: I spent time reviewing and interpreting data from bedside monitors, laboratory results, and imaging, I spent time discussing the management of this critically ill patient with consultants and the medical staff and I spent time documenting in the medical record us Chong Hutchinson NP IN CLINIC/BEDSIDE ORDER [place] Final Result * (ABNORMAL) Tissue aerobic and anaerobic culture and gram stain Tissue Cervical (10/07/2024 6:11 PM CDT) Direct Specimen Exam Stain: No polymorphonuclear leukocytes seen. No organisms seen. Slide reviewed. Review is consistent with original read. Report Final Report: Rare Staphylococcus aureus For susceptibility results, refer to accession number [id number] on the Cervical aspirate culture from 10/08/2024 (.) [facility] Organism STAPHYLOCOCCUS AUREUS [facility] Tissue (Cervical) 10/07/2024 6:11 PM CDT 10/08/2024 8:05 AM CDT N[facility]ative [facility] - 10/13/2024 3:07 PM CDT C1-C2 Joint Tissue Testing performed by [facility] ([phone]) Specimens submitted from normally sterile body sites will have all bacterial morphotypes identified. Specimens that contain grossly mixed les and/or are from body sites that are not normally sterile will be examined for Staphylococcus aureus, Pseudomonas aeruginosa, beta-hemolytic strep, vancomycin-resistant Enterococcus, Bacteroides, Parabacteroides, Clostridium perfringens and fungus. If any of these are isolated, the organism will be reported. Current interpretive data was last revised on 2019. Deshawn Cornelius MD LAB MICROBIOLOGY - G ENERAL ORDERABLES Final Result Performing Organization Address City/[facility]/ZIP Co de Phone Number [facility] Department [place] [address] * FL Fluoroscopy < 1 Hour (10/07/2024 5:40 PM CDT) Narrative [facility] - 10/07/2024 5:48 PM CDT The images from this study are not interpreted by Radiology. Please refer to the physician's procedure / OR operative note. Deshawn Cornelius MD IMG FLUOROSCOPY PROC EDURES Final Result [facility] * (ABNORMAL) Aerobic and anaerobic culture and gram stain Aspirate Cervical (10/07/2024 4:52 PM CDT) Direct Specimen Exam Stain: Few polymorphonuclear leukocytes seen. No organisms seen. Slide reviewed. Review is consistent with original read. Report Final Report: Few Staphylococcus aureus Methicillin susceptible (MSSA) by penicillin binding protein 2a (PBP2a) testing. (.) [facility] Organism STAPHYLOCOCCUS AUREUS [facility] Aspirate (Cervical) 10/07/2024 4:52 PM CDT 10/08/2024 8:04 AM CDT Narrative [facility] - 10/13/2024 3:06 PM CDT C1-C2 Joint Testing performed by [facility] ([phone]) Specimens submitted from normally sterile body sites will have all bacterial morphotypes identified. Specimens that contain grossly mixed les and/or are from body sites that are not normally sterile will be examined for Staphylococcus aureus, Pseudomonas aeruginosa, beta-hemolytic strep, vancomycin-resistant Enterococcus, Bacteroides, Parabacteroides, Clostridium perfringens and fungus. If any of these are isolated, the organism will be reported. Current interpretive data was last revised on 2019. Organism Antibiotic Method Susceptibility Staphylococcus aureus Doxycycline (NICK) INTERPRETATIO N Susceptible Staphylococcus aureus Linezolid (NICK) INTERPRETATIO N Susceptible Staphylococcus aureus Rifampin (NICK) INTERPRETATIO N Susceptible Staphylococcus aureus Trimethoprim with Sulfamethoxazole (NICK) INTERPRETATION Susceptible Staphylococcus aureus Clindamycin (NICK) INTERPRETATIO N Susceptible Staphylococcus aureus Erythromycin (NICK) INTERPRETATIO N Susceptible Staphylococcus aureus Vancomycin (NICK) INTERPRETATIO N Susceptible Staphylococcus aureus Oxacillin (NICK) INTERPRETATIO N Susceptible Staphylococcus aureus Cefazolin (NICK) INTERPRETATIO N Susceptible Staphylococcus aureus Ceftriaxone (NICK) INTERPRETATIO N Susceptible Deshawn Cornelius MD LAB MICROBIOLOGY - G ENERAL ORDERABLES Final Result [facility] [place] [address] * (ABNORMAL) POC Blood Gas and Chemistries, Arterial - (10/07/2024 4:48 PM CDT) pH, Art POC 7.29(L) 7.35 - 7.45 pCO2, Art POC 48(H) 35 - 45 mmHg [facility] pO2, Art POC 233(H) 83 - 108 mmHg [facility] Na, POC 136 135 - 145 mmol/L [facility] K POC 4.0 3.3 - 4.9 mmol/L [facility] Comment: Interpretive Data Not all point of care methods assess for hemolysis. Confirm with instrument and retest K+ if not consistent with clinical signs and symptoms. Current Interpretive Data was last revised on 2023. Cl, POC 108 97 - 110 mmol/L [facility] Ionized Ca, POC 5.18(H) 4.50 - 5.10 mg/dL [facility] Glucose, POC 123 70 - 199 mg/dL [facility] Lactate POC 0.7 0.7 - 2.0 mmol/L [facility] SO2 (ramesh) arterial 99(H) 90 - 95 % [facility] Base excess, POC -3.5 mmol/L [facility] Hct, POC 28.0(L) 41.4 - 51.6 % [facility] Total Hb, POC 9.2(L) 13.8 - 17.2 g/dL [facility] Blood 10/07/2024 4:48 PM CDT 10/07/2024 4:48 PM CDT Deshawn Cornelius MD LAB POCT ORDERABLES - DEVICE Final Result [facility] Department [place] [address] * Tissue aerobic and anaerobic culture and gram stain Tissue Cervical (10/07/2024 3:57 PM CDT) Direct Specimen Exam Stain: No polymorphonuclear leukocytes seen. No organisms seen. Report Final Report: No growth [facility] Tissue (Cervical) 10/07/2024 3:57 PM CDT 10/07/2024 5:40 PM CDT Fela REGAN [facility] - 10/12/2024 10:30 AM CDT Paraspinal tissue Received in transport media. Specimen collected in the operating room. Testing performed by [facility] ([phone]) Specimens submitted from normally sterile body sites will have all bacterial morphotypes identified. Specimens that contain grossly mixed les and/or are from body sites that are not normally sterile will be examined for Staphylococcus aureus, Pseudomonas aeruginosa, beta-hemolytic strep, vancomycin-resistant Enterococcus, Bacteroides, Parabacteroides, Clostridium perfringens and fungus. If any of these are isolated, the organism will be reported. Current interpretive data was last revised on 2019. us Deshawn Cornelius MD LAB MICROBIOLOGY - G ENERAL ORDERABLES Final Result [facility] Department [place] [address] * UT AN PROCEDURE PLACEHOLDER (10/07/2024 3:38 PM CDT) Belkis Aldrich CRNA - 10/07/2024 3:38 PM CDT Belkis Lockett CRNA 10/07/2024 3:38 PM Peripheral IV Catheter Patient location: OR Staff: Placed by: Anesthesiologist: Alistair Stevenson MD Preprocedure prep: Prep solution: alcohol and chlorhexadine PPE: gloves PIV line: Laterality: right Site: forearm Catheter size: 20 g Technique: anatomical landmarks and direct visualization Procedure details: good blood return and occlusive dressing applied Number of attempts: 1 Assessment: Events: patient tolerated procedure well with no complications us Alistair Stevenson MD ANESTHESIA ORDERABLES Fi nal Result * UT AN PROCEDURE PLACEHOLDER (10/07/2024 3:37 PM CDT) Belkis Aldrich CRNA - 10/07/2024 3:37 PM CDT Belkis Lockett CRNA 10/07/2024 3:38 PM Peripheral IV Catheter Patient location: OR Staff: Placed by: Anesthesiologist: Alistair Stevenson MD Preprocedure prep: Prep solution: alcohol and chlorhexadine PPE: gloves PIV line: Laterality: right Site: foot Catheter size: 18 g Technique: anatomical landmarks and direct visualization Procedure details: good blood return and occlusive dressing applied Number of attempts: 2 Assessment: Events: patient tolerated procedure well with no complications Alistair Stevenson MD ANESTHESIA ORDERABLES Fi nal Result * UT AN ELECTIVE ENDOTRACHEAL AIRWAY, UT AN PROCEDURE PLACEHOLDER (10/07/2024 3:36 PM CDT) Narrative Belkis Lockett CRNA - 10/07/2024 3:36 PM CDT Belkis Lockett CRNA 10/07/2024 3:42 PM Airway Patient location: OR Urgency: elective Indications for airway management: anesthesia Difficult airway: no Staff: Supervising provider: Kenya Hernandez MD Placed by: REGULATORY AND COMPLIANCE TECHNICIAN: Belkis Lockett CRNA Emergent airway documentation: Risks and benefits discussed: yes Consent obtained: yes Consent given by: patient Airway prep: Preoxygenated: yes Patient position: sniffing Mask difficulty assessment: 0 - not attempted Spontaneous ventilation during airway: absent Sedation level during airway: GA Final airway details: Final airway type: endotracheal airway Tube type: ETT ETT size: 7.5 mm Cuffed: yes Technique used for successful ETT placement: video laryngoscopy Devices/Methods used in placement: stylet Insertion site: oral Blade type: Lobo Video blade type: Patton Blade size: 3 (3X anterior blade) Cormack-Lehane (direct): grade III - view of epiglottis only Cormack-Lehane (video): grade I - full view of glottis Cuff volume: 8 mL Cuff inflated with: air ETT to lips: 25 cm Placement verified by: auscultation and CO2 detection Airway secured with: silk tape, prone view tape and tegaderm Number of attempts: 1 Additional comments: Patient was easily intubated with C-Collar in place without any cervical extension or manipulation. Alistair Stevenson MD ANESTHESIA ORDERABLES Ed ited Result - Final * Arterial Line (10/07/2024 3:08 PM CDT) Narrative Kenya Hernandez MD - 10/07/2024 3:08 PM CDT Kenya Hernandez MD 10/07/2024 3:08 PM Arterial Line Patient location: OR Indication: continuous blood pressure monitoring and blood sampling needed Staff: Supervising provider: Alistair Stevenson MD Placed by: Fellow: Kenya Hernandez MD Procedure prep: Prep solution: chlorhexadine/alcohol Prep: provider hat/mask and sterile gloves Arterial line: Catheter size: 20 gauge Catheter length: 1 and 3/4 inch Catheter type: wire-guided catheter Seldinger technique: yes Laterality: right Site: radial artery Line secured: tape and Tegaderm Results: good waveform and good blood return Number of attempts: 1 Assessment: Events: patient tolerated procedure well with no complications us Alistair Stevenson MD ANESTHESIA ORDERABLES Fi nal Result * TRANSTHORACIC ECHO (TTE) COMPLETE W DOPPLER/CF W CONTRAST (10/07/2024 11:49 AM CDT) Estimated EF 55-60 % CONS SCIMAGE Anatomical Region Laterality Modality Ultrasound 10/07/2024 11:0 9 AM CDT Narrative 10/07/2024 1:45 PM CDT [facility] Cardiac [place] [address] Transthoracic Echocardiographic Report Patient Name: SABINO PACHECO : 1945 (79y 7m) Gender: M Study Date: 10/07/2024 11:09:18 AM Ht(Inch): 72 Wt(Lb): 164.9 BSA: 1.95 Cullet Trucker: Cecily Hernandez RDCS Location: [id number] Order Provider: DESHAWN CORNELIUS BMI: 22.36 BP: 119 / 66 Ref Provider: DESHAWN CORNELIUS - PROCEDURES: Echocardiographic Report: Transthoracic complete echo with contrast, 2D, spectral and tissue Doppler, color flow Doppler, M-mode. Contrast: Contrast Enhancement was Employed: Due to suboptimal image quality with inadequate visualization of at least 2 of 16 LV wall segments in any view after initial imaging. Perflutren contrast was administered using the volume necessary to obtain adequate images. 0.8 ml Optison Administered, (2.2 ml wasted). Technically difficult study due to: Body habitus. Poor acoustic windows. INDICATIONS: Murmur. CONCLUSIONS: 1. Technically difficult study with reduced image quality due to poor acoustic windows. 2. Normal left ventricular size and wall thickness. Normal left ventricular systolic function, visually estimated LVEF 55-60 %. Grade I diastolic dysfunction (normal LA pressure). Unable to assess LV strain. 3. Normal right ventricular size and systolic function. 4. Mildly dilated aortic root (4.1 cm) and proximal ascending aorta (4.6 cm). 5. Normal LA and RA. IVC not visualized. 6. Moderately thickened AV without c/w aortic valve sclerosis. Otherwise no significant valvular abnormalities. Unable to assess PA pressure. 7. No pericardial effusion. COMPARISONS: No previous study available for comparison. ATTESTATION: I have personally reviewed and interpreted this study without fellow or resident. - DISCLAIMER: The study images and the final report will be retained in the patient chart by the Echo Laboratory for the legally required time period. This chart constitutes the legal record of any testing performed. FINDINGS: Left Ventricle: Normal left ventricular size based on volume index. Normal LV wall thickness. Normal left ventricular systolic function. The Ejection Fraction is visually estimated to be 55-60 %. Grade I diastolic dysfunction (normal LA pressure). Unable to assess global longitudinal strain due to image quality. Right Ventricle: Normal right ventricular size. Normal right ventricular systolic function. Left Atrium: The left atrium is normal in size. Right Atrium: The right atrium is normal in size. Atrial Septum: Mild lipomatous hypertrophy of the atrial septum. Mitral Valve: Normal mitral valve structure. No mitral regurgitation. No stenosis present. Aortic Valve: Normal trileaflet aortic valve. Moderately thickened aortic valve leaflets. No aortic regurgitation. No aortic valve stenosis. The mean transaortic gradient is 6 mmHg. The aortic valve area by the continuity equation (using VTI) is 2.09 cm2. Aortic valve dimensionless index is 0.59. Tricuspid Valve: Normal tricuspid valve structure. No tricuspid regurgitation. No tricuspid valve stenosis. Pulmonic Valve: Normal pulmonic valve structure. No pulmonic regurgitation. No pulmonic valve stenosis present. Pericardium: Normal pericardium without pericardial effusion. Aorta: Mild aortic root dilation at sinuses of Valsalva. Dilation of the aortic root when indexed. Dilation of the ascending aorta when indexed. IVC: IVC not visualized due to poor acoustic windows. PASP: Unable to determine PASP due to inadequate TR jet. Rhythm: Normal Sinus rhythm was seen during the study. MEASUREMENTS: 2D/MM Value Range Doppler Value Range Visually Estimated EF 55-60 % AV Peak David 1.7 m/s [ 1.0 - 1.7 ] TAPSE 2.33 cm [ 1.71 - 5.00 ] AV Peak PG 11.56 mmHg AoR Diam 2D 4.05 cm [ 3.10 - 3.70 ] AV Mean PG 6 mmHg Ao Root Index 2.08 cm/m2 [ 1.00 - 2.00 ] AV VTI 29.2 cm Asc Ao Diam 2D 4.61 cm LVOT Peak David 0.9 m/s [ 0.7 - 1.1 ] Asc Ao Index 2.36 cm/m2 LVOT Peak PG 3.24 mmHg LVOT Mean PG 2 mmHg LVOT VTI 17.1 cm LVOT Diam 2.13 cm NADINE VTI 2.09 cm2 LVOT/AV VTI 0.59 - Dimensionless index (DVI) MV E Peak David 0.5 m/s [ 0.6 - 1.3 ] MV A Peak David 0.8 m/s [ 1.0 - 1.2 ] MV E/A 0.7 ratio [ 0.8 - 1.5 ] MV Decel Time 141.28 msec [ 104.00 - 258.00 ] Med E` David 10.0 cm/sec [ 8.0 - 25.0 ] Lat E` David 8.8 cm/sec [ 10.0 - 25.0 ] Average E/E` 5.32 RV S` 16.96 cm/sec PV Peak David 1.0 m/s [ 0.4 - 0.8 ] PV Peak PG 4.00 mmHg Electronically Signed By: Yaw Gan MD 10/07/2024 1:44:58 PM CDT Procedure Note Yaw Gan MD - 10/07/2024 [facility] Cardiac [place] [address] Transthoracic Echocardiographic Report Patient Name: SABINO PACHECO : 1945 (79y 7m) Gender: M Study Date: 10/07/2024 11:09:18 AM Ht(Inch): 72 Wt(Lb): 164.9 BSA: 1.95 Cullet Trucker: Cecily Hernandez RDCS Location: [id number] Order Provider:DESHAWN CORNELIUS BMI: 22.36 BP: 119 / 66 Ref Provider: DESHAWN CORNELIUS - PROCEDURES: Echocardiographic Report: Transthoracic complete echo with contrast, 2D,spectral and tissue Doppler, color flow Doppler, M-mode. Contrast: Contrast Enhancement was Employed: Due to suboptimal imagequality with inadequate visualization of at least 2 of 16 LV wall segments in any viewafter initial imaging. Perflutren contrast was administered using the volume necessaryto obtain adequate images. 0.8 ml Optison Administered, (2.2 ml wasted). Technically difficult study due to: Body habitus. Poor acoustic windows. INDICATIONS: Murmur. CONCLUSIONS: 1. Technically difficult study with reduced image quality due to pooracoustic windows. 2. Normal left ventricular size and wall thickness. Normal leftventricular systolic function, visually estimated LVEF 55-60 %. Grade I diastolic dysfunction(normal LA pressure). Unable to assess LV strain. 3. Normal right ventricular size and systolic function. 4. Mildly dilated aortic root (4.1 cm) and proximal ascending aorta (4.6cm). 5. Normal LA and RA. IVC not visualized. 6. Moderately thickened AV without c/w aortic valve sclerosis.Otherwise no significant valvular abnormalities. Unable to assess PA pressure. 7. No pericardial effusion. COMPARISONS: No previous study available for comparison. ATTESTATION: I have personally reviewed and interpreted this study without fellow orresident. - DISCLAIMER: The study images and the final report will be retained in the patientchart by the Echo Laboratory for the legally required time period. This chart constitutesthe legal record of any testing performed. FINDINGS: Left Ventricle: Normal left ventricular size based on volume index. NormalLV wall thickness. Normal left ventricular systolic function. The EjectionFraction is visually estimated to be 55-60 %. Grade I diastolic dysfunction (normal LApressure). Unable to assess global longitudinal strain due to image quality. Right Ventricle: Normal right ventricular size. Normal right ventricularsystolic function. Left Atrium: The left atrium is normal in size. Right Atrium: The right atrium is normal in size. Atrial Septum: Mild lipomatous hypertrophy of the atrial septum. Mitral Valve: Normal mitral valve structure. No mitral regurgitation. Nostenosis present. Aortic Valve: Normal trileaflet aortic valve. Moderately thickened aorticvalve leaflets. No aortic regurgitation. No aortic valve stenosis. The mean transaorticgradient is 6 mmHg. The aortic valve area by the continuity equation (using VTI) is 2.09cm2. Aortic valve dimensionless index is 0.59. Tricuspid Valve: Normal tricuspid valve structure. No tricuspidregurgitation. No tricuspid valve stenosis. Pulmonic Valve: Normal pulmonic valve structure. No pulmonicregurgitation. No pulmonic valve stenosis present. Pericardium: Normal pericardium without pericardial effusion. Aorta: Mild aortic root dilation at sinuses of Valsalva. Dilation of theaortic root when indexed. Dilation of the ascending aorta when indexed. IVC: IVC not visualized due to poor acoustic windows. PASP: Unable to determine PASP due to inadequate TR jet. Rhythm: Normal Sinus rhythm was seen during the study. MEASUREMENTS: 2D/MM Value Range DopplerValue Range Visually Estimated EF 55-60 % AV Peak Vel1.7 m/s [ 1.0 - 1.7 ] TAPSE 2.33 cm [ 1.71 - 5.00 ] AV Peak PG11.56 mmHg AoR Diam 2D 4.05 cm [ 3.10 - 3.70 ] AV Mean PG6 mmHg Ao Root Index 2.08 cm/m2 [ 1.00 - 2.00 ] AV VTI29.2 cm Asc Ao Diam 2D 4.61 cm LVOT Peak Vel0.9 m/s [ 0.7 - 1.1 ] Asc Ao Index 2.36 cm/m2 LVOT Peak PG3.24 mmHg LVOT Mean PG 2 mmHg LVOT VTI 17.1 cm LVOT Diam 2.13 cm NADINE VTI 2.09 cm2 LVOT/AV VTI 0.59 - Dimensionless index (DVI) MV E Peak David 0.5 m/s [ 0.6 - 1.3 ] MV A Peak David 0.8 m/s [ 1.0 - 1.2 ] MV E/A 0.7 ratio [ 0.8 - 1.5 ] MV Decel Time 141.28 msec [ 104.00 - 258.00 ] Med E` David 10.0 cm/sec [ 8.0 - 25.0 ] Lat E` David 8.8 cm/sec [ 10.0 - 25.0 ] Average E/E` 5.32 RV S` 16.96 cm/sec PV Peak David 1.0 m/s [ 0.4 - 0.8 ] PV Peak PG 4.00 mmHg Electronically Signed By: Yaw Gan MD 10/07/2024 1:44:58 PM CDT us Deshawn Cornelius MD CV ECHO PROCEDURES F inal Result * POCT glucose (10/07/2024 11:32 AM CDT) Glucose, POC 100 70 - 199 mg/dL Blood 10/07/2024 11:3 2 AM CDT 10/07/2024 11:32 AM CDT Deshawn Cornelius MD LAB POCT ORDERABLES - DEVICE Final Result [facility] Department [place] [address] * Critical Care (10/07/2024 11:20 AM CDT) Narrative Kelli Landry MD - 10/07/2024 11:20 AM CDT Kelli Landry MD 10/07/2024 11:21 AM Critical Care Performed by: Kelli Landry MD Authorized by: Kelli Landry MD CRITICAL CARE: Team: SICU BLUE Shift: AM Level of Billing: Critical Care My time spent with this patient was 45 minutes: Critical Provider Statement: I have seen and examined the patient on this day of service. I have reviewed and confirmed the history, physical exam, laboratory and radiologic data as documented in the signed ICU note. I have reviewed and discussed my treatment plan with the ICU team and other medical/retail client solutions consultant staff, making frequent assessments and decisions regarding this patient's complex medical care. Critical Care time was exclusive of time spent performing separately billed procedures, treating other patients, and teaching. This time was in addition to and separate from critical care provided by other practitioners in my group on this day of service. Critical Care was necessary to treat or prevent imminent or life-threatening deterioration of the following conditions: Acute pain/acute postoperative pain Spinal cord injury/spine fracture This time was spent by me doing the following: Resuscitation with fluids Acute pain control and Frequent neurologic exams Empiric broad coverage antibiotics and Review of prior or current culture/gram stain results I spent time reviewing and interpreting data from bedside monitors, laboratory results, and imaging, I spent time discussing the management of this critically ill patient with consultants and the medical staff and I spent time documenting in the medical record us Kelli Landry MD IN CLINIC/BEDSIDE ORDER [place] Final Result * (ABNORMAL) Blood culture Blood (10/07/2024 9:56 AM CDT) Direct Specimen Exam Molecular Analysis: Methicillin-suscep tible Staphylococcus aureus (MSSA) detected by the [facility] [employer]lex BCID-GP panel. This test does not exclude the possibility of a mixed bacterial infection. Notification of: Methicillin-suscep tible Staphylococcus aureus (MSSA) called to and read back by: Chong Hutchinson NP ([phone]) on 10/08/2024 04:52:04 by: Yaw Griffith MT Direct Specimen Exam Stain: Gram Positive Cocci in clusters Time to culture positivity (anaerobic media): 15.5 hours Notification of: Gram Positive Cocci in clusters called to and read back by: Chong Hutchinson NP [phone] on 10/08/2024 02:50:21 by: Lizbeth Robles [place] [facility] Report Final Report: Staphylococcus aureus Methicillin susceptible (MSSA) by penicillin binding protein 2a (PBP2a) testing. (.) [facility] Organism STAPHYLOCOCCUS AUREUS [facility] Blood 10/07/2024 9:56 AM CDT 10/07/2024 10:13 AM CDT Narrative [facility] - 10/13/2024 8:13 AM CDT Collection->Peripheral 1. Blood cultures are incubated for 4 days on a continuously monitored blood culture system. The first report of a negative culture is issued within 24 hours of receipt of the specimen in the laboratory. 2. Positive culture results are reported as soon as they are detected. 3. The most important factor for detection of microbes in the setting of bloodstream infection is the volume of blood submitted for culture. Failure to collect an optimal blood volume can result in false negative blood cultures. 4. For pediatric patients, the recommended blood volume to collect follows a weight based strategy. See the electronic test catalog for collection instructions. 5. For positive blood cultures, a rapid molecular test may be performed for organism identification using the [facility] [employer] blood culture identification panel for gram positive (BCID-GP) and gram negative (BCID-GN) organisms. This nucleic acid amplification test detects microbial DNA in positive blood culture broth. This assay has been cleared by the [place] Food and Drug Administration and its performance characteristics have been verified by the [facility] Microbiology Laboratory. For questions about this culture, contact the Microbiology Laboratory at [phone]. Interpretive data was last revised on 24. Organism Antibiotic Method Susceptibility Staphylococcus aureus Doxycycline (NICK) INTERPRETATIO N Susceptible Staphylococcus aureus Linezolid (NICK) INTERPRETATIO N Susceptible Staphylococcus aureus Trimethoprim with Sulfamethoxazole (NICK) INTERPRETATION Susceptible Staphylococcus aureus Clindamycin (NICK) INTERPRETATIO N Susceptible Staphylococcus aureus Erythromycin (NICK) INTERPRETATIO N Susceptible Staphylococcus aureus Vancomycin (NICK) INTERPRETATIO N Susceptible Staphylococcus aureus Oxacillin (NICK) INTERPRETATIO N Susceptible Staphylococcus aureus Cefazolin (NICK) INTERPRETATIO N Susceptible Staphylococcus aureus Ceftriaxone (NICK) INTERPRETATIO N Susceptible Deshawn Cornelius MD LAB MICROBIOLOGY - [facility] ORDERABLES Final Result [facility] Department [place] [address] * Blood culture Blood (10/07/2024 9:56 AM CDT) Report Final Report: No growth Blood 10/07/2024 9:56 AM CDT 10/07/2024 10:13 AM CDT Narrative [facility] - 10/11/2024 12:01 PM CDT Collection->Peripheral Specimen received in media. Culture results may be compromised. If clinically indicated, submit a new specimen. 1. Blood cultures are incubated for 4 days on a continuously monitored blood culture system. The first report of a negative culture is issued within 24 hours of receipt of the specimen in the laboratory. 2. Positive culture results are reported as soon as they are detected. 3. The most important factor for detection of microbes in the setting of bloodstream infection is the volume of blood submitted for culture. Failure to collect an optimal blood volume can result in false negative blood cultures. 4. For pediatric patients, the recommended blood volume to collect follows a weight based strategy. See the electronic test catalog for collection instructions. 5. For positive blood cultures, a rapid molecular test may be performed for organism identification using the [facility] blood culture identification panel for gram positive (BCID-GP) and gram negative (BCID-GN) organisms. This nucleic acid amplification test detects microbial DNA in positive blood culture broth. This assay has been cleared by the [place] Food and Drug Administration and its performance characteristics have been verified by the [facility] Microbiology Laboratory. For questions about this culture, contact the Microbiology Laboratory at [phone]. Interpretive data was last revised on 24. Deshawn Cornelius MD LAB MICROBIOLOGY - G [facility] ORDERABLES Final Result Performing Organization Address City/[facility]/ZIP Co de Phone Number [facility] [place] [address] * POCT glucose (10/07/2024 7:40 AM CDT) Glucose, POC 106 70 - 199 mg/dL Blood 10/07/2024 7:40 AM CDT 10/07/2024 7:40 AM CDT Deshawn Cornelius MD LAB POCT ORDERABLES - DEVICE Final Result Performing Organization Address [facility] Co de Phone Number [facility] [place] [address] * (ABNORMAL) CRP (acute phase) (10/07/2024 3:28 AM CDT) CRP 248.0(H) <=10.0 mg/L Blood 10/07/2024 3:28 AM CDT 10/07/2024 5:12 AM CDT Deshawn Cornelius MD LAB BLOOD ORDERABLES Final Result Performing Organization Address City/[facility] Co de Phone Number [facility] [place] [address] * POCT glucose (10/07/2024 2:53 AM CDT) Glucose, POC 112 70 - 199 mg/dL Blood 10/07/2024 2:53 AM CDT 10/07/2024 2:53 AM CDT Deshawn Cornelius MD LAB POCT ORDERABLES - DEVICE Final Result Performing Organization Address City/[facility]/ZIP Co de Phone Number [facility] Department [place] [address] * ECG 12 lead (10/07/2024 2:17 AM CDT) [facility] Ventricular Rate EKG/Min 86 BPM [facility] Atrial Rate 136 BPM [facility] QRS-Interval (MSEC) 100 ms [facility] QT-Interval (MSEC) 412 ms [facility] QTc 493 ms [facility] P George 64 degrees [facility] R George -45 degrees [facility] T George 73 degrees [facility] Diagnosis Sinus tachycardia with 2nd degree A-V block (Mobitz I) Left anterior fascicular block Prolonged QT Abnormal ECG No previous ECGs available Confirmed by EVELIN GREEN M.D ([id number]) on 10/07/2024 11:51:49 AM [facility] 10/07/2024 2:17 AM CDT 10/07/2024 11:51 AM CDT Deshawn Cornelius MD ECG ORDERABLES Donita l Result [facility] 48domain [facility] * POCT glucose (10/06/2024 11:05 PM CDT) Glucose, POC 112 70 - 199 mg/dL Blood 10/06/2024 11:0 5 PM CDT 10/06/2024 11:05 PM CDT Deshawn Cornelius MD LAB POCT ORDERABLES - DEVICE Final Result [facility] Department [place] [address] * Critical Care (10/06/2024 7:28 PM CDT) Narrative Jens Stewart MD - 10/06/2024 7:28 PM CDT Jens Stewart MD 10/07/2024 6:10 AM Critical Care Performed by: Jens Stewart MD Authorized by: Jens Stewart MD CRITICAL CARE: Team: SICU BLUE Shift: PM Level of Billing: Critical Care My time spent with this patient was 30 minutes: Critical Provider Statement: I have seen and examined the patient on this day of service. I have reviewed and confirmed the history, physical exam, laboratory and radiologic data as documented in the signed ICU note. I have reviewed and discussed my treatment plan with the ICU team and other medical/retail client solutions consultant staff, making frequent assessments and decisions regarding this patient's complex medical care. Critical Care time was exclusive of time spent performing separately billed procedures, treating other patients, and teaching. This time was in addition to and separate from critical care provided by other practitioners in my group on this day of service. Critical Care was necessary to treat or prevent imminent or life-threatening deterioration of the following conditions: Spinal cord injury/spine fracture This time was spent by me doing the following: Serial bedside patient exams Acute pain control Serial neurovascular exams I spent time discussing the management of this critically ill patient with consultants and the medical staff, I spent time reviewing and interpreting data from bedside monitors, laboratory results, and imaging and I spent time documenting in the medical record us Jens Stewart MD IN CLINIC/BEDSIDE [facility]DE [facility] Final Result * POCT glucose (10/06/2024 7:09 PM CDT) Glucose, POC 96 70 - 199 mg/dL Blood 10/06/2024 7:09 PM CDT 10/06/2024 7:09 PM CDT us Deshawn Cornelius MD LAB POCT ORDERABLES - DEVICE Final Result [facility] Department [place] [address] * Critical Care (10/06/2024 6:30 PM CDT) Narrative Kelli Landry MD - 10/06/2024 6:30 PM CDT Kelli Landry MD 10/07/2024 11:24 AM Critical Care Performed by: Chong Hutchinson NP Authorized by: Chong Hutchinson NP CRITICAL CARE: Team: SICU BLUE Shift: PM Level of Billing: Critical Care My time spent with this patient was 120 minutes: Critical Provider Statement: I have seen and examined the patient on this day of service. I have reviewed and confirmed the history, physical exam, laboratory and radiologic data as documented in the signed ICU note. I have reviewed and discussed my treatment plan with the ICU team and other medical/retail client solutions consultant staff, making frequent assessments and decisions regarding this patient's complex medical care. Critical Care time was exclusive of time spent performing separately billed procedures, treating other patients, and teaching. This time was in addition to and separate from critical care provided by other practitioners in my group on this day of service. Critical Care was necessary to treat or prevent imminent or life-threatening deterioration of the following conditions: I spent time reviewing and interpreting data from bedside monitors, laboratory results, and imaging, I spent time discussing the management of this critically ill patient with consultants and the medical staff and I spent time documenting in the medical record us Chong Hutchinosn NP IN CLINIC/BEDSIDE ORDER [place] Final Result * Blood culture Blood (10/06/2024 6:11 PM CDT) Report Final Report: No growth Blood 10/06/2024 6:11 PM CDT 10/06/2024 6:35 PM CDT Narrative [facility] - 10/11/2024 7:01 AM CDT Collection->Peripheral 1. Blood cultures are incubated for 4 days on a continuously monitored blood culture system. The first report of a negative culture is issued within 24 hours of receipt of the specimen in the laboratory. 2. Positive culture results are reported as soon as they are detected. 3. The most important factor for detection of microbes in the setting of bloodstream infection is the volume of blood submitted for culture. Failure to collect an optimal blood volume can result in false negative blood cultures. 4. For pediatric patients, the recommended blood volume to collect follows a weight based strategy. See the electronic test catalog for collection instructions. 5. For positive blood cultures, a rapid molecular test may be performed for organism identification using the aga ePlex blood culture identification panel for gram positive (BCID-GP) and gram negative (BCID-GN) organisms. This nucleic acid amplification test detects microbial DNA in positive blood culture broth. This assay has been cleared by the [place] Food and Drug Administration and its performance characteristics have been verified by the [facility] Microbiology Laboratory. For questions about this culture, contact the Microbiology Laboratory at [phone]. Interpretive data was last revised on 24. Deshawn Cornelius MD LAB MICROBIOLOGY - G ENERAL ORDERABLES Final Result [facility] [place] [address] * POCT glucose (10/06/2024 6:09 PM CDT) Glucose, POC 104 70 - 199 mg/dL Blood 10/06/2024 6:09 PM CDT 10/06/2024 6:09 PM CDT Deshawn Cornelius MD LAB POCT ORDERABLES - DEVICE Final Result [facility] [place] [address] * Lactate (10/06/2024 6:08 PM CDT) Lactate 1.2 0.7 - 2.0 mmol/L Blood 10/06/2024 6:08 PM CDT 10/06/2024 6:19 PM CDT Deshawn Cornelius MD LAB BLOOD ORDERABLES Final Result Performing Organization Address [facility] Co de Phone Number [facility] [place] [address] * eGFR (10/06/2024 6:08 PM CDT) eGFR 87 >=60 mL/min/1. 73 m2 Comment: Interpretive Data Reference Interval Normal >/= 90 mL/min/1.73m2 Mildly decreased* 60 - 89 mL/min/1.73m2 Mildly to moderately decreased 45 - 59 mL/min/1.73m2 Moderately to severely decreased 30 - 44 mL/min/1.73m2 Severely decreased 15 - 29 mL/min/1.73m2 Kidney Failure < 15 mL/min/1.73m2 *Relative to young adult level Estimated glomerular filtration rate is determined by the 2020 CKD-EPI equation recommended by the National Kid[employer] (A Unifying Approach to GFR Estimation: Recommendations of the NKF-ASK Task Force on Reassessing the Inclusion of Race in Diagnosing Kidney Disease, JASN 2020). The CKD-EPI equation should not be used for patients with unstable renal function and has not been validated in children and those over 70. Current interpretive data was last reviewed 2021. Blood 10/06/2024 6:08 PM CDT 10/06/2024 6:19 PM CDT us Deshawn Cornelius MD LAB BLOOD ORDERABLES Final Result Performing Organization Address City/[facility]/ZIP Co de Phone Number [facility] Department [place] [address] * (ABNORMAL) Differential, auto (10/06/2024 6:08 PM CDT) Neutrophil abs 11.22(H) 1.50 - 6.50 K/cumm Imm gran abs 0.11(H) 0.00 - 0.10 K/cumm [facility] Lymphocyte abs 1.12 0.80 - 3.30 K/cumm [facility] Monocyte abs 1.38(H) 0.20 - 0.80 K/cumm [facility] Eosinophil abs 0.01 0.00 - 0.50 K/cumm [facility] Basophil abs 0.05 0.00 - 0.10 K/cumm [facility] Neutrophil pct 80.7 % [facility] Comment: Interpretive Data Percent cell count reference ranges are not reported, since discordance with absolute values may lead to misinterpretation of CBC data. Current Interpretive Data was last revised on 2017. Imm gran pct 0.8 % [facility] Comment: Interpretive Data Percent cell count reference ranges are not reported, since discordance with absolute values may lead to misinterpretation of CBC data. Current Interpretive Data was last revised on 2017. Lymphocyte pct 8.1 % [facility] Comment: Interpretive Data Percent cell count reference ranges are not reported, since discordance with absolute values may lead to misinterpretation of CBC data. Current Interpretive Data was last revised on 2017. Monocyte pct 9.9 % [facility] Comment: Interpretive Data Percent cell count reference ranges are not reported, since discordance with absolute values may lead to misinterpretation of CBC data. Current Interpretive Data was last revised on 2017. Eosinophil pct 0.1 % [facility] Comment: Interpretive Data Percent cell count reference ranges are not reported, since discordance with absolute values may lead to misinterpretation of CBC data. Current Interpretive Data was last revised on 2017. Basophil pct 0.4 % [facility] Comment: Interpretive Data Percent cell count reference ranges are not reported, since discordance with absolute values may lead to misinterpretation of CBC data. Current Interpretive Data was last revised on 2017. Blood 10/06/2024 6:08 PM CDT 10/06/2024 6:19 PM CDT us Deshawn Cornelius MD LAB BLOOD ORDERABLES Final Result [facility] Department [place] [address] * (ABNORMAL) CBC with auto differential (10/06/2024 6:08 PM CDT) Pathologist [facility] WBC 13.89(H) 3.80 - 9.90 K/cumm Hgb 10.1(L) 13.0 - 17.5 g/dL [facility] Hct 32.4(L) 38.9 - 50.3 % [facility] Plt 636(H) 150 - 400 K/cumm [facility] MPV 8.6(L) 9.1 - 12.3 fL [facility] RBC 4.00(L) 4.30 - 5.80 M/cumm [facility] MCV 81.0(L) 81.3 - 96.4 fL [facility] MCH 25.3(L) 27.1 - 33.3 pg [facility] MCHC 31.2(L) 32.3 - 35.7 g/dL [facility] RDW CV 23.6(H) 11.1 - 14.9 % [facility] RDW SD 67.4(H) 35.7 - 48.1 fL [facility] NRBC abs 0.00 0.00 - 0.01 K/cumm [facility] Blood 10/06/2024 6:08 PM CDT 10/06/2024 6:19 PM CDT Deshawn Cornelius MD LAB BLOOD ORDERABLES Final Result [facility] [place] [address] * (ABNORMAL) Vitamin D 25 hydroxy (10/06/2024 6:08 PM CDT) [facility] Vitamin D 25-OH 28(L) 30 - 80 ng/mL Blood 10/06/2024 6:08 PM CDT 10/06/2024 6:19 PM CDT Deshawn Cornelius MD LAB BLOOD ORDERABLES Final Result Performing Organization Address [facility]/ZIP Co de Phone Number SHEREEN PANIAGUA [facility] Department [place] [address] * Blood culture Blood (10/06/2024 6:08 PM CDT) Report Final Report: No growth Blood 10/06/2024 6:08 PM CDT 10/06/2024 6:35 PM CDT Narrative SHEREEN PANIAGUA - 10/11/2024 7:01 AM CDT Collection->Peripheral 1. Blood cultures are incubated for 4 days on a continuously monitored blood culture system. The first report of a negative culture is issued within 24 hours of receipt of the specimen in the laboratory. 2. Positive culture results are reported as soon as they are detected. 3. The most important factor for detection of microbes in the setting of bloodstream infection is the volume of blood submitted for culture. Failure to collect an optimal blood volume can result in false negative blood cultures. 4. For pediatric patients, the recommended blood volume to collect follows a weight based strategy. See the electronic test catalog for collection instructions. 5. For positive blood cultures, a rapid molecular test may be performed for organism identification using the aga ePlex blood culture identification panel for gram positive (BCID-GP) and gram negative (BCID-GN) organisms. This nucleic acid amplification test detects microbial DNA in positive blood culture broth. This assay has been cleared by the [place] Food and Drug Administration and its performance characteristics have been verified by the [facility] Microbiology Laboratory. For questions about this culture, contact the Microbiology Laboratory at [phone]. Interpretive data was last revised on 24. Deshawn Cornelius MD LAB MICROBIOLOGY - G ENERAL ORDERABLES Final Result Performing Organization Address City/[facility]/ZIP Co de Phone Number [facility] [place] [address] * (ABNORMAL) CRP (acute phase) (10/06/2024 6:08 PM CDT) CRP 226.0(H) <=10.0 mg/L Blood 10/06/2024 6:08 PM CDT 10/06/2024 6:19 PM CDT Deshawn Cornelius MD LAB BLOOD ORDERABLES Final Result Performing Organization Address [facility] Co de Phone Number [facility] [place] [address] * Phosphorus (10/06/2024 6:08 PM CDT) [facility] Phosphorus, pl 3.3 2.3 - 4.5 mg/dL Blood 10/06/2024 6:08 PM CDT 10/06/2024 6:19 PM CDT Deshawn Cornelius MD LAB BLOOD ORDERABLES Final Result Performing Organization Address [facility] Co de Phone Number [facility] [place] [address] * Magnesium (10/06/2024 6:08 PM CDT) [facility] Magnesium 2.3 1.4 - 2.5 mg/dL Blood 10/06/2024 6:08 PM CDT 10/06/2024 6:19 PM CDT Deshawn Cornelius MD LAB BLOOD ORDERABLES Final Result Performing Organization Address [facility] Co de Phone Number [facility] [place] [address] * (ABNORMAL) Comprehensive metabolic panel (10/06/2024 6:08 PM CDT) [facility] Sodium 137 135 - 145 mmol/L Potassium, pl 3.8 3.3 - 4.9 mmol/L [facility] Chloride 102 97 - 110 mmol/L [facility] CO2 24 22 - 32 mmol/L [facility] Anion gap 11 2 - 15 mmol/L [facility] BUN 13 6 - 25 mg/dL [facility] Creatinine 0.89 0.80 - 1.30 mg/dL [facility] Glucose 101 70 - 199 mg/dL [facility] Comment: Interpretive Data Fasting glucose >/= 126 mg/dl is diagnostic for diabetes. Fasting is defined as no caloric intake for at least 8 hours. Fasting glucose between 100 mg/dl to 125 mg/dl is diagnostic of prediabetes. In a patient with classic symptoms of hyperglycemia or hyperglycemic crisis, a random glucose >/= 200 mg/dl is diagnostic for diabetes. In the absence of unequivocal hyperglycemia, results should be confirmed by repeat testing. The classification and Diagnosis of Diabetes Diabetes Care 202; 46: S19-S40. Current interpretive data was last revised 2022. Calcium 9.1 8.5 - 10.3 mg/dL [facility] Bilirubin, total 0.4 0.1 - 1.2 mg/dL [facility] Protein, pl 8.1 6.5 - 8.5 g/dL [facility] Albumin 3.2(L) 3.5 - 5.0 g/dL [facility] Alk phos 79 40 - 130 Units/L [facility] ALT 14 7 - 55 Units/L [facility] AST 24 10 - 50 Units/L [facility] Blood 10/06/2024 6:08 PM CDT 10/06/2024 6:19 PM CDT Deshawn Cornelius MD LAB BLOOD ORDERABLES Final Result [facility] [place] [address] * Critical Care (10/06/2024 6:00 PM CDT) Narrative Kelli Landry MD - 10/06/2024 6:00 PM CDT Kelli Landry MD 10/07/2024 11:22 AM Critical Care Performed by: Kelli Landry MD Authorized by: Kelli Landry MD CRITICAL CARE: Team: SICU BLUE Shift: AM Level of Billing: Critical Care My time spent with this patient was 55 minutes: Critical Provider Statement: I have seen and examined the patient on this day of service. I have reviewed and confirmed the history, physical exam, laboratory and radiologic data as documented in the signed ICU note. I have reviewed and discussed my treatment plan with the ICU team and other medical/retail client solutions consultant staff, making frequent assessments and decisions regarding this patient's complex medical care. Critical Care time was exclusive of time spent performing separately billed procedures, treating other patients, and teaching. This time was in addition to and separate from critical care provided by other practitioners in my group on this day of service. Critical Care was necessary to treat or prevent imminent or life-threatening deterioration of the following conditions: Acute pain/acute postoperative pain Spinal cord injury/spine fracture This time was spent by me doing the following: Serial bedside patient exams Acute pain control and Frequent neurologic exams Incentive spirometry, pulmonary toilet Emp[place]ic broad coverage antibiotics, Obtaining appropriate cultures and Review of prior or current culture/gram stain results I spent time reviewing and interpreting data from bedside monitors, laboratory results, and imaging, I spent time discussing the management of this critically ill patient with consultants and the medical staff and I spent time documenting in the medical record Kelli Landry MD IN CLINIC/BEDSIDE ORDER [place] Final Result * UT CRITICAL CARE ILL/INJURED PATIENT INIT 30-74 MIN (10/06/2024 5:17 PM CDT) Narrative Paco Taylor MD - 10/06/2024 5:17 PM CDT Paco Taylor MD 10/06/2024 5:50 PM Critical Care Performed by: Paco Taylor MD Authorized by: Paco Taylor MD Critical care provider statement: As reflected in the history, physical exam, orders, notes, and/or MDM, I was personally present while the patient was critically ill and provided critical care services for 35 minutes, excluding time involved in separately billable procedures. Critical care was necessary to treat or prevent imminent or life-threatening deterioration of the following condition(s): severe neurologic condition spinal cord injury/spine fracture Critical care was time spent by me providing the following: continuous telemetry, continuous pulse oximetry, interpretation of bedside monitors, imaging, and arterial/venous lab draws and serial bedside patient exams frequent neurologic exams and advanced imaging MRI us Paco Taylor MD IN CLINIC/BEDSIDE ORDERABLES Fin al Result * Check Sample (10/06/2024 5:06 PM CDT) ABO Rh O Positive [facility] HCLL OTHER 10/06/2024 5:06 PM CDT 10/06/2024 5:19 PM CDT us Pan Leiva MD LAB BLOOD ORDERABLES Donita l Result [facility] [place] [address] [facility] * (ABNORMAL) PTH (10/06/2024 5:06 PM CDT) PTH 11(L) 15 - 65 pg/mL Blood 10/06/2024 5:06 PM CDT 10/06/2024 5:22 PM CDT us Mercedes Montenegro NP LAB BLOOD ORDERABLES Fi nal Result Performing Organization Address City/[facility]/ZIP Co de Phone Number [facility] [place] [address] * MRI Spine Total Complete W WO Contrast (10/06/2024 4:05 PM CDT) Anatomical Region Laterality Modality Spine N/A Magnetic Resonan ce 10/06/2024 5:08 PM CDT Impressions 10/07/2024 8:15 AM CDT 1. Extensive marrow replacing destructive process at the craniocervical junction involving the dens, clivus, basiocciput, anterior arch of C1, C1-C2 left facet joint. Extensive soft tissue thickening within the adjacent prevertebral and paraspinal tissues with diffusion restriction, edema and enhancement with small fluid collection in the retropharyngeal space which extends inferiorly to C4-C5. There is extensive myositis throughout the posterior paraspinal musculature throughout the upper cervical spine. Favor an infectious process such as vertebral osteomyelitis, although advanced malignancy or other destructive process could also be within the differential, correlate clinically and consider tissue sampling for further diagnosis. 2. Extensive circumferential epidural enhancement and thickening throughout the upper cervical spine which also contributes to the degree of canal narrowing without rim-enhancing fluid collections, this is suspected to represent phlegmonous change. Multilevel spinal canal narrowing with severe canal narrowing at C3-C4, moderate to severe canal narrowing at C2-C3 and C4-C5, and moderate canal narrowing at other levels. No abnormal cord signal. 3. Pachymeningeal enhancement also noted within the posterior fossa along the dorsal aspect of the foramen magnum and cisterna magna. No acute infarct or acute intracranial hemorrhage, no other acute intracranial process. 4. Multilevel degenerative changes in the thoracic and lumbar spine as above without suspicious marrow abnormalities or abnormal enhancement. 5. 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 Dictated by: Kapil Guerra M.D. The radiology attending physician has personally reviewed this study, and had reviewed and/or edited this written report and agrees with it. Electronically signed by: Bhargavi Hall M.D. Narrative 10/07/2024 8:15 AM CDT EXAMINATION: 1. Magnetic resonance imaging (MRI) of the brain and brainstem without and with contrast 2. Magnetic resonance imaging (MRI) of the cervical spine without and with contrast 3. Magnetic resonance imaging (MRI) of the thoracic spine without and with contrast 4. Magnetic resonance imaging (MRI) of the lumbar spine without and with contrast HISTORY: 79 years-old Male with vert occlusion and possible ischemia.79-year-old man with lower extremity paresthesias in the setting of chiropractic manipulation 2 weeks prior, found to have C1 and C2 fractures at outside hospital and was transferred for further management. TECHNIQUE: Multiplanar multi-weighted MRI of the brain and brainstem was performed without and with intravenous contrast using the general brain protocol. Multiplanar multi-weighted MRI of the cervical spine was performed without and with intravenous contrast using the standard protocol. Multiplanar multi-weighted MRI of the thoracic was performed without and with intravenous contrast using the standard protocol. Multiplanar multi-weighted MRI of the lumbar spine was performed without and with intravenous contrast using the standard protocol. Contrast information: 14 mL Gadoterate Meglumine IV COMPARISON: CTA head and neck 10/06/2024. FINDINGS: BRAIN: The scalp and calvarium are normal. The superior sagittal sinus demonstrates normal venous flow. The corpus callosum is normal in shape and signal intensity. The posterior fossa is unremarkable. The pituitary and sella are normal. The brainstem and craniocervical junction are unremarkable. Diffusion weighted images reveal no hyperintensities to suggest acute cerebral infarction. The susceptibility weighted sequences reveal no evidence of acute or chronic hemorrhage. There is diffuse cerebral volume loss with ventricular sulcal prominence. Mild scattered white matter T2 FLAIR hyperintensities which are nonspecific however most commonly represent chronic small vessel disease in a patient of this age. The paranasal sinuses are normal. Bilateral mastoid effusions. The orbits appear normal. Normal flow voids are demonstrated in the carotid arteries and basilar artery. The left vertebral artery There is pachymeningeal enhancement within the posterior fossa along the dorsal aspect of the foramen magnum and dorsal aspect of the cisterna magna. CERVICAL SPINE: There is extensive osseous edema involving the dens, clivus, basiocciput, left occipital condyle, C1 and left C1-C2 facet joint. There are redemonstrated erosive changes within the dens, the anterior arch of C1 and left C1-C2 facet joint. There is extensive soft tissue thickening within the adjacent prevertebral and paraspinal tissues with diffusion restriction, edema and enhancement with small fluid collection in the retropharyngeal space which extends inferiorly to C4-C5. There is extensive myositis throughout the posterior paraspinal musculature throughout the upper cervical spine. There is extensive circumferential epidural enhancement and thickening throughout the upper cervical spine which also contributes to the degree of canal narrowing without rim-enhancing fluid collections to suggest abscess, suspected to represent phlegmonous change. Redemonstrated asymmetric alignment of the atlantoaxial joints, subluxed posteriorly on the right and decreased left atlantodental interval. Probable superimposed pathologic Type 2 dens fracture and comminuted anterior arch fracture, however osseous findings were seen to better extent on prior CT. Multilevel degenerative changes with disc height loss, uncovertebral and facet arthropathy, degenerative endplate changes, osteophytic spurring. 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 Multilevel spinal canal narrowing: Moderate narrowing at the cervical medullary junction/C1-C2, due to retro-odontoid soft tissue thickening/pannus with moderate due to severe canal narrowing at C2-C3, severe canal narrowing at C3-C4, moderate to severe canal narrowing at C4-C5, moderate canal narrowing at C5-C6, mild canal narrowing at C6-C7. Multilevel neural foraminal narrowing: Mild bilateral C2-C3, moderate severe left C3-C4, moderate bilateral C4-C5, severe right moderate left C5-C6, moderate bilateral C6-C7. 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 THORACIC SPINE: The alignment of the thoracic spine is normal. Small endplate irregularities at multiple levels with height loss may represent Schmorl's nodes versus chronic compression fractures, no abnormal STIR signal or other suspicious marrow abnormality. The spinal cord demonstrates normal signal intensity on all sequences. Diffuse disc desiccation. Limited views of the chest and abdomen show no soft tissue abnormality. The aorta is normal. There is no abnormal contrast enhancement. Small disc protrusions at multiple levels. There is mild scattered facet arthropathy. There is no high-grade neuroforaminal stenosis. There is no spinal canal stenosis. LUMBAR SPINE: The alignment of the lumbar spine is normal. Vertebral hemangioma at L1. No suspicious marrow abnormality. There are no compression fractures. The conus medullaris terminates at the level of L1-L2. The distal spinal cord signal intensity is normal. Multilevel disc desiccation. Limited views of the abdomen and pelvis show no soft tissue abnormality. The aorta is normal. There is no abnormal contrast enhancement. 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 Multilevel degenerative changes with multilevel disc height loss, disc vacuum phenomenon, facet and spinous process arthropathy. Multilevel spinal canal narrowing: Moderate L1-L2, moderate L2-L3, moderate L3-L4, mild L4-L5, mild L5-S1. Multilevel neural foraminal narrowing: Moderate bilateral L1-L2, moderate bilateral L2-L3, severe right moderate left L3-L4 severe right moderate left L4-L5, moderate bilateral L5-S1. Procedure Note Bhargavi Hall MD - 10/07/2024 EXAMINATION: 1. Magnetic resonance imaging (MRI) of the brain and brainstem without and with contrast 2. Magnetic resonance imaging (MRI) of the cervical spine without and with contrast 3. Magnetic resonance imaging (MRI) of the thoracic spine without and with contrast 4. Magnetic resonance imaging (MRI) of the lumbar spine without and with contrast HISTORY: 79 years-old Male with vert occlusion and possible ischemia.79-year-old man with lower extremity paresthesias in the setting of chiropractic manipulation 2 weeks prior, found to have C1 and C2 fractures at outside hospital and was transferred for further management. TECHNIQUE: Multiplanar multi-weighted MRI of the brain and brainstem was performed without and with intravenous contrast using the general brain protocol. Multiplanar multi-weighted MRI of the cervical spine was performed without and with intravenous contrast using the standard protocol. Multiplanar multi-weighted MRI of the thoracic was performed without and with intravenous contrast using the standard protocol. Multiplanar multi-weighted MRI of the lumbar spine was performed without and with intravenous contrast using the standard protocol. Contrast information: 14 mL Gadoterate Meglumine IV COMPARISON: CTA head and neck 10/06/2024. FINDINGS: BRAIN: The scalp and calvarium are normal. The superior sagittal sinus demonstrates normal venous flow. The corpus callosum is normal in shape and signal intensity. The posterior fossa is unremarkable. The pituitary and sella are normal. The brainstem and craniocervical junction are unremarkable. Diffusion weighted images reveal no hyperintensities to suggest acute cerebral infarction. The susceptibility weighted sequences reveal no evidence of acute or chronic hemorrhage. There is diffuse cerebral volume loss with ventricular sulcal prominence. Mild scattered white matter T2 FLAIR hyperintensities which are nonspecific however most commonly represent chronic small vessel disease in a patient of this age. The paranasal sinuses are normal. Bilateral mastoid effusions. The orbits appear normal. Normal flow voids are demonstrated in the carotid arteries and basilar artery. The left vertebral artery There is pachymeningeal enhancement within the posterior fossa along the dorsal aspect of the foramen magnum and dorsal aspect of the cisterna magna. CERVICAL SPINE: There is extensive osseous edema involving the dens, clivus, basiocciput, left occipital condyle, C1 and left C1-C2 facet joint. There are redemonstrated erosive changes within the dens, the anterior arch of C1 and left C1-C2 facet joint. There is extensive soft tissue thickening within the adjacent prevertebral and paraspinal tissues with diffusion restriction, edema and enhancement with small fluid collection in the retropharyngeal space which extends inferiorly to C4-C5. There is extensive myositis throughout the posterior paraspinal musculature throughout the upper cervical spine. There is extensive circumferential epidural enhancement and thickening throughout the upper cervical spine which also contributes to the degree of canal narrowing without rim-enhancing fluid collections to suggest abscess, suspected to represent phlegmonous change. Redemonstrated asymmetric alignment of the atlantoaxial joints, subluxed posteriorly on the right and decreased left atlantodental interval. Probable superimposed pathologic Type 2 dens fracture and comminuted anterior arch fracture, however osseous findings were seen to better extent on prior CT. Multilevel degenerative changes with disc height loss, uncovertebral and facet arthropathy, degenerative endplate changes, osteophytic spurring. 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 Multilevel spinal canal narrowing: Moderate narrowing at the cervical medullary junction/C1-C2, due to retro-odontoid soft tissue thickening/pannus with moderate due to severe canal narrowing at C2-C3, severe canal narrowing at C3-C4, moderate to severe canal narrowing at C4-C5, moderate canal narrowing at C5-C6, mild canal narrowing at C6-C7. Multilevel neural foraminal narrowing: Mild bilateral C2-C3, moderate severe left C3-C4, moderate bilateral C4-C5, severe right moderate left C5-C6, moderate bilateral C6-C7. 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 THORACIC SPINE: The alignment of the thoracic spine is normal. Small endplate irregularities at multiple levels with height loss may represent Schmorl's nodes versus chronic compression fractures, no abnormal STIR signal or other suspicious marrow abnormality. The spinal cord demonstrates normal signal intensity on all sequences. Diffuse disc desiccation. Limited views of the chest and abdomen show no soft tissue abnormality. The aorta is normal. There is no abnormal contrast enhancement. Small disc protrusions at multiple levels. There is mild scattered facet arthropathy. There is no high-grade neuroforaminal stenosis. There is no spinal canal stenosis. LUMBAR SPINE: The alignment of the lumbar spine is normal. Vertebral hemangioma at L1. No suspicious marrow abnormality. There are no compression fractures. The conus medullaris terminates at the level of L1-L2. The distal spinal cord signal intensity is normal. Multilevel disc desiccation. Limited views of the abdomen and pelvis show no soft tissue abnormality. The aorta is normal. There is no abnormal contrast enhancement. 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 Multilevel degenerative changes with multilevel disc height loss, disc vacuum phenomenon, facet and spinous process arthropathy. Multilevel spinal canal narrowing: Moderate L1-L2, moderate L2-L3, moderate L3-L4, mild L4-L5, mild L5-S1. Multilevel neural foraminal narrowing: Moderate bilateral L1-L2, moderate bilateral L2-L3, severe right moderate left L3-L4 severe right moderate left L4-L5, moderate bilateral L5-S1. IMPRESSION: 1. Extensive marrow replacing destructive process at the craniocervical junction involving the dens, clivus, basiocciput, anterior arch of C1, C1-C2 left facet joint. Extensive soft tissue thickening within the adjacent prevertebral and paraspinal tissues with diffusion restriction, edema and enhancement with small fluid collection in the retropharyngeal space which extends inferiorly to C4-C5. There is extensive myositis throughout the posterior paraspinal musculature throughout the upper cervical spine. Favor an infectious process such as vertebral osteomyelitis, although advanced malignancy or other destructive process could also be within the differential, correlate clinically and consider tissue sampling for further diagnosis. 2. Extensive circumferential epidural enhancement and thickening throughout the upper cervical spine which also contributes to the degree of canal narrowing without rim-enhancing fluid collections, this is suspected to represent phlegmonous change. Multilevel spinal canal narrowing with severe canal narrowing at C3-C4, moderate to severe canal narrowing at C2-C3 and C4-C5, and moderate canal narrowing at other levels. No abnormal cord signal. 3. Pachymeningeal enhancement also noted within the posterior fossa along the dorsal aspect of the foramen magnum and cisterna magna. No acute infarct or acute intracranial hemorrhage, no other acute intracranial process. 4. Multilevel degenerative changes in the thoracic and lumbar spine as above without suspicious marrow abnormalities or abnormal enhancement. 5. 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 Dictated by: Kapil Guerra M.D. The radiology attending physician has personally reviewed this study, and had reviewed and/or edited this written report and agrees with it. Electronically signed by: Bhargavi Hall M.D. us Pan Leiva MD IM MRI PROCEDURES Final Result * MRI Brain W WO Contrast (10/06/2024 4:05 PM CDT) Anatomical Region Laterality Modality Head and Neck N/A Magnetic Resonan ce 10/06/2024 5:08 PM CDT Impressions 10/07/2024 8:15 AM CDT 1. Extensive marrow replacing destructive process at the craniocervical junction involving the dens, clivus, basiocciput, anterior arch of C1, C1-C2 left facet joint. Extensive soft tissue thickening within the adjacent prevertebral and paraspinal tissues with diffusion restriction, edema and enhancement with small fluid collection in the retropharyngeal space which extends inferiorly to C4-C5. There is extensive myositis throughout the posterior paraspinal musculature throughout the upper cervical spine. Favor an infectious process such as vertebral osteomyelitis, although advanced malignancy or other destructive process could also be within the differential, correlate clinically and consider tissue sampling for further diagnosis. 2. Extensive circumferential epidural enhancement and thickening throughout the upper cervical spine which also contributes to the degree of canal narrowing without rim-enhancing fluid collections, this is suspected to represent phlegmonous change. Multilevel spinal canal narrowing with severe canal narrowing at C3-C4, moderate to severe canal narrowing at C2-C3 and C4-C5, and moderate canal narrowing at other levels. No abnormal cord signal. 3. Pachymeningeal enhancement also noted within the posterior fossa along the dorsal aspect of the foramen magnum and cisterna magna. No acute infarct or acute intracranial hemorrhage, no other acute intracranial process. 4. Multilevel degenerative changes in the thoracic and lumbar spine as above without suspicious marrow abnormalities or abnormal enhancement. 5. 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 Dictated by: Kapil Guerra M.D. The radiology attending physician has personally reviewed this study, and had reviewed and/or edited this written report and agrees with it. Electronically signed by: Bhargavi Hall M.D. Narrative 10/07/2024 8:15 AM CDT EXAMINATION: 1. Magnetic resonance imaging (MRI) of the brain and brainstem without and with contrast 2. Magnetic resonance imaging (MRI) of the cervical spine without and with contrast 3. Magnetic resonance imaging (MRI) of the thoracic spine without and with contrast 4. Magnetic resonance imaging (MRI) of the lumbar spine without and with contrast HISTORY: 79 years-old Male with vert occlusion and possible ischemia.79-year-old man with lower extremity paresthesias in the setting of chiropractic manipulation 2 weeks prior, found to have C1 and C2 fractures at outside hospital and was transferred for further management. TECHNIQUE: Multiplanar multi-weighted MRI of the brain and brainstem was performed without and with intravenous contrast using the general brain protocol. Multiplanar multi-weighted MRI of the cervical spine was performed without and with intravenous contrast using the standard protocol. Multiplanar multi-weighted MRI of the thoracic was performed without and with intravenous contrast using the standard protocol. Multiplanar multi-weighted MRI of the lumbar spine was performed without and with intravenous contrast using the standard protocol. Contrast information: 14 mL Gadoterate Meglumine IV COMPARISON: CTA head and neck 10/06/2024. FINDINGS: BRAIN: The scalp and calvarium are normal. The superior sagittal sinus demonstrates normal venous flow. The corpus callosum is normal in shape and signal intensity. The posterior fossa is unremarkable. The pituitary and sella are normal. The brainstem and craniocervical junction are unremarkable. Diffusion weighted images reveal no hyperintensities to suggest acute cerebral infarction. The susceptibility weighted sequences reveal no evidence of acute or chronic hemorrhage. There is diffuse cerebral volume loss with ventricular sulcal prominence. Mild scattered white matter T2 FLAIR hyperintensities which are nonspecific however most commonly represent chronic small vessel disease in a patient of this age. The paranasal sinuses are normal. Bilateral mastoid effusions. The orbits appear normal. Normal flow voids are demonstrated in the carotid arteries and basilar artery. The left vertebral artery There is pachymeningeal enhancement within the posterior fossa along the dorsal aspect of the foramen magnum and dorsal aspect of the cisterna magna. CERVICAL SPINE: There is extensive osseous edema involving the dens, clivus, basiocciput, left occipital condyle, C1 and left C1-C2 facet joint. There are redemonstrated erosive changes within the dens, the anterior arch of C1 and left C1-C2 facet joint. There is extensive soft tissue thickening within the adjacent prevertebral and paraspinal tissues with diffusion restriction, edema and enhancement with small fluid collection in the retropharyngeal space which extends inferiorly to C4-C5. There is extensive myositis throughout the posterior paraspinal musculature throughout the upper cervical spine. There is extensive circumferential epidural enhancement and thickening throughout the upper cervical spine which also contributes to the degree of canal narrowing without rim-enhancing fluid collections to suggest abscess, suspected to represent phlegmonous change. Redemonstrated asymmetric alignment of the atlantoaxial joints, subluxed posteriorly on the right and decreased left atlantodental interval. Probable superimposed pathologic Type 2 dens fracture and comminuted anterior arch fracture, however osseous findings were seen to better extent on prior CT. Multilevel degenerative changes with disc height loss, uncovertebral and facet arthropathy, degenerative endplate changes, osteophytic spurring. 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 Multilevel spinal canal narrowing: Moderate narrowing at the cervical medullary junction/C1-C2, due to retro-odontoid soft tissue thickening/pannus with moderate due to severe canal narrowing at C2-C3, severe canal narrowing at C3-C4, moderate to severe canal narrowing at C4-C5, moderate canal narrowing at C5-C6, mild canal narrowing at C6-C7. Multilevel neural foraminal narrowing: Mild bilateral C2-C3, moderate severe left C3-C4, moderate bilateral C4-C5, severe right moderate left C5-C6, moderate bilateral C6-C7. 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 THORACIC SPINE: The alignment of the thoracic spine is normal. Small endplate irregularities at multiple levels with height loss may represent Schmorl's nodes versus chronic compression fractures, no abnormal STIR signal or other suspicious marrow abnormality. The spinal cord demonstrates normal signal intensity on all sequences. Diffuse disc desiccation. Limited views of the chest and abdomen show no soft tissue abnormality. The aorta is normal. There is no abnormal contrast enhancement. Small disc protrusions at multiple levels. There is mild scattered facet arthropathy. There is no high-grade neuroforaminal stenosis. There is no spinal canal stenosis. LUMBAR SPINE: The alignment of the lumbar spine is normal. Vertebral hemangioma at L1. No suspicious marrow abnormality. There are no compression fractures. The conus medullaris terminates at the level of L1-L2. The distal spinal cord signal intensity is normal. Multilevel disc desiccation. Limited views of the abdomen and pelvis show no soft tissue abnormality. The aorta is normal. There is no abnormal contrast enhancement. 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 Multilevel degenerative changes with multilevel disc height loss, disc vacuum phenomenon, facet and spinous process arthropathy. Multilevel spinal canal narrowing: Moderate L1-L2, moderate L2-L3, moderate L3-L4, mild L4-L5, mild L5-S1. Multilevel neural foraminal narrowing: Moderate bilateral L1-L2, moderate bilateral L2-L3, severe right moderate left L3-L4 severe right moderate left L4-L5, moderate bilateral L5-S1. Procedure Note Bhargavi Hall MD - 10/07/2024 EXAMINATION: 1. Magnetic resonance imaging (MRI) of the brain and brainstem without and with contrast 2. Magnetic resonance imaging (MRI) of the cervical spine without and with contrast 3. Magnetic resonance imaging (MRI) of the thoracic spine without and with contrast 4. Magnetic resonance imaging (MRI) of the lumbar spine without and with contrast HISTORY: 79 years-old Male with vert occlusion and possible ischemia.79-year-old man with lower extremity paresthesias in the setting of chiropractic manipulation 2 weeks prior, found to have C1 and C2 fractures at outside hospital and was transferred for further management. TECHNIQUE: Multiplanar multi-weighted MRI of the brain and brainstem was performed without and with intravenous contrast using the general brain protocol. Multiplanar multi-weighted MRI of the cervical spine was performed without and with intravenous contrast using the standard protocol. Multiplanar multi-weighted MRI of the thoracic was performed without and with intravenous contrast using the standard protocol. Multiplanar multi-weighted MRI of the lumbar spine was performed without and with intravenous contrast using the standard protocol. Contrast information: 14 mL Gadoterate Meglumine IV COMPARISON: CTA head and neck 10/06/2024. FINDINGS: BRAIN: The scalp and calvarium are normal. The superior sagittal sinus demonstrates normal venous flow. The corpus callosum is normal in shape and signal intensity. The posterior fossa is unremarkable. The pituitary and sella are normal. The brainstem and craniocervical junction are unremarkable. Diffusion weighted images reveal no hyperintensities to suggest acute cerebral infarction. The susceptibility weighted sequences reveal no evidence of acute or chronic hemorrhage. There is diffuse cerebral volume loss with ventricular sulcal prominence. Mild scattered white matter T2 FLAIR hyperintensities which are nonspecific however most commonly represent chronic small vessel disease in a patient of this age. The paranasal sinuses are normal. Bilateral mastoid effusions. The orbits appear normal. Normal flow voids are demonstrated in the carotid arteries and basilar artery. The left vertebral artery There is pachymeningeal enhancement within the posterior fossa along the dorsal aspect of the foramen magnum and dorsal aspect of the cisterna magna. CERVICAL SPINE: There is extensive osseous edema involving the dens, clivus, basiocciput, left occipital condyle, C1 and left C1-C2 facet joint. There are redemonstrated erosive changes within the dens, the anterior arch of C1 and left C1-C2 facet joint. There is extensive soft tissue thickening within the adjacent prevertebral and paraspinal tissues with diffusion restriction, edema and enhancement with small fluid collection in the retropharyngeal space which extends inferiorly to C4-C5. There is extensive myositis throughout the posterior paraspinal musculature throughout the upper cervical spine. There is extensive circumferential epidural enhancement and thickening throughout the upper cervical spine which also contributes to the degree of canal narrowing without rim-enhancing fluid collections to suggest abscess, suspected to represent phlegmonous change. Redemonstrated asymmetric alignment of the atlantoaxial joints, subluxed posteriorly on the right and decreased left atlantodental interval. Probable superimposed pathologic Type 2 dens fracture and comminuted anterior arch fracture, however osseous findings were seen to better extent on prior CT. Multilevel degenerative changes with disc height loss, uncovertebral and facet arthropathy, degenerative endplate changes, osteophytic spurring. 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 Multilevel spinal canal narrowing: Moderate narrowing at the cervical medullary junction/C1-C2, due to retro-odontoid soft tissue thickening/pannus with moderate due to severe canal narrowing at C2-C3, severe canal narrowing at C3-C4, moderate to severe canal narrowing at C4-C5, moderate canal narrowing at C5-C6, mild canal narrowing at C6-C7. Multilevel neural foraminal narrowing: Mild bilateral C2-C3, moderate severe left C3-C4, moderate bilateral C4-C5, severe right moderate left C5-C6, moderate bilateral C6-C7. 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 THORACIC SPINE: The alignment of the thoracic spine is normal. Small endplate irregularities at multiple levels with height loss may represent Schmorl's nodes versus chronic compression fractures, no abnormal STIR signal or other suspicious marrow abnormality. The spinal cord demonstrates normal signal intensity on all sequences. Diffuse disc desiccation. Limited views of the chest and abdomen show no soft tissue abnormality. The aorta is normal. There is no abnormal contrast enhancement. Small disc protrusions at multiple levels. There is mild scattered facet arthropathy. There is no high-grade neuroforaminal stenosis. There is no spinal canal stenosis. LUMBAR SPINE: The alignment of the lumbar spine is normal. Vertebral hemangioma at L1. No suspicious marrow abnormality. There are no compression fractures. The conus medullaris terminates at the level of L1-L2. The distal spinal cord signal intensity is normal. Multilevel disc desiccation. Limited views of the abdomen and pelvis show no soft tissue abnormality. The aorta is normal. There is no abnormal contrast enhancement. 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 Multilevel degenerative changes with multilevel disc height loss, disc vacuum phenomenon, facet and spinous process arthropathy. Multilevel spinal canal narrowing: Moderate L1-L2, moderate L2-L3, moderate L3-L4, mild L4-L5, mild L5-S1. Multilevel neural foraminal narrowing: Moderate bilateral L1-L2, moderate bilateral L2-L3, severe right moderate left L3-L4 severe right moderate left L4-L5, moderate bilateral L5-S1. IMPRESSION: 1. Extensive marrow replacing destructive process at the craniocervical junction involving the dens, clivus, basiocciput, anterior arch of C1, C1-C2 left facet joint. Extensive soft tissue thickening within the adjacent prevertebral and paraspinal tissues with diffusion restriction, edema and enhancement with small fluid collection in the retropharyngeal space which extends inferiorly to C4-C5. There is extensive myositis throughout the posterior paraspinal musculature throughout the upper cervical spine. Favor an infectious process such as vertebral osteomyelitis, although advanced malignancy or other destructive process could also be within the differential, correlate clinically and consider tissue sampling for further diagnosis. 2. Extensive circumferential epidural enhancement and thickening throughout the upper cervical spine which also contributes to the degree of canal narrowing without rim-enhancing fluid collections, this is suspected to represent phlegmonous change. Multilevel spinal canal narrowing with severe canal narrowing at C3-C4, moderate to severe canal narrowing at C2-C3 and C4-C5, and moderate canal narrowing at other levels. No abnormal cord signal. 3. Pachymeningeal enhancement also noted within the posterior fossa along the dorsal aspect of the foramen magnum and cisterna magna. No acute infarct or acute intracranial hemorrhage, no other acute intracranial process. 4. Multilevel degenerative changes in the thoracic and lumbar spine as above without suspicious marrow abnormalities or abnormal enhancement. 5. 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 Dictated by: Kapil Guerra M.D. The radiology attending physician has personally reviewed this study, and had reviewed and/or edited this written report and agrees with it. Electronically signed by: Bhargavi Hall M.D. us Yaya Lipscomb DO IMG MRI PROCEDURES Donita l Result * XR Spine Cervical 2 or 3 Views (10/06/2024 1:27 PM CDT) Anatomical Region Laterality Modality Spine N/A Computed Radiogr aphy 10/06/2024 1:57 PM CDT Impressions 10/06/2024 1:57 PM CDT Severe prevertebral soft tissue swelling, severe widening of the right C1 lateral process relative to C2 and osseous irregularities in the region of the dens in the atlantodental joint, better characterized on recent CT. Electronically signed by: Rich Malhotra MD, PHD Narrative 10/06/2024 1:57 PM CDT EXAMINATION: XR SPINE CERVICAL 2 OR 3 VIEWS HISTORY: c-spine injury COMPARISON: No prior radiographs are available. Comparison is made to outside CT neck 10/06/2024. FINDINGS: The open mouth view demonstrates severe widening of the right C1 lateral process relative to C2. Osseous irregularities in the region of the dens and atlantodental joint are partially seen and are better characterized on recent CT. There is severe prevertebral soft tissue swelling. Cervical spine is Alignment of the cervical spine is otherwise normal. Procedure Note Rich Malhotra MD PhD - 10/06/2024 EXAMINATION: XR SPINE CERVICAL 2 OR 3 VIEWS HISTORY: c-spine injury COMPARISON: No prior radiographs are available. Comparison is made to outside CT neck 10/06/2024. FINDINGS: The open mouth view demonstrates severe widening of the right C1 lateral process relative to C2. Osseous irregularities in the region of the dens and atlantodental joint are partially seen and are better characterized on recent CT. There is severe prevertebral soft tissue swelling. Cervical spine is Alignment of the cervical spine is otherwise normal. IMPRESSION: Severe prevertebral soft tissue swelling, severe widening of the right C1 lateral process relative to C2 and osseous irregularities in the region of the dens in the atlantodental joint, better characterized on recent CT. Electronically signed by: Rich Malhotra MD, PHD us Pan Leiva MD IMG XR PROCEDURES Final R esult * XR Outside Reference (10/06/2024 1:07 PM CDT) Impressions [facility] - 10/06/2024 1:07 PM CDT These images are for Reference purposes only and have not been reviewed by [facility]. There will be no report generated by a [facility] Radiologist. Narrative [facility] - 10/06/2024 1:07 PM CDT EXAMINATION: Images For Reference Purposes Only us Caren Ladd MD IMG XR PROCEDURES Fi nal Result [facility] * CT Body Outside Consult (10/06/2024 12:57 PM CDT) Anatomical Region Laterality Modality Body N/A Computed Tomogra phy 10/06/2024 1:3 4 PM CDT Impressions 10/06/2024 1:34 PM CDT 1. Mildly enlarged left axillary lymph node measuring 1.3 cm in short axis, indeterminate. Per chart review, this has been biopsied in the interval. 2. Multiple indeterminate bilateral pulmonary nodules. The largest measures 9 mm in the left upper lobe. Recommend comparison to prior imaging to document stability. If no such imaging is available and given the background of emphysema, recommend initial follow-up CT in 3 months. 3. No acute findings or evidence of malignancy in the abdomen or pelvis. The findings, conclusions and recommendations within this report do not replace the initial findings, conclusions and recommendations made at the facility where the study was performed based upon the imaging and clinical condition at that time. Comparison with the prior report and clinical history is necessary. The provided images may or may not represent the stockbridge source data set and thus may contain changes that may lower the accuracy of this second-opinion interpretation. Electronically signed by: Rich Malhotra MD, PHD Narrative 10/06/2024 1:34 PM CDT EXAMINATION: RADIOLOGY CONSULTATION ON OUTSIDE IMAGING STUDY STUDY INITIALLY PERFORMED: 08/09/2024 at [facility]. TYPE OF STUDY: Multiple CT images of the chest, abdomen and pelvis with contrast are provided at the time of this interpretation. CONTRAST ROUTE: Contrast was administered via the intravenous route. The protocol was adequate to address the clinical question. The outside final report was not available at the time of this second opinion interpretation. TYPE OF CONSULTATION: Consult on outside imaging study with images submitted through Outside Image Sharing Service DATE OF CONSULTATION: 10/06/2024 1:19 PM HISTORY: Neck pain and cervical spine fracture COMPARISON: None available. FINDINGS: Heart size is mildly enlarged. No pericardial effusion. Severe burden of multivessel calcified coronary artery disease. The thoracic aorta is atherosclerotic but normal in caliber. No supraclavicular lymphadenopathy. There is a mildly enlarged left axillary lymph node that measures 1.3 cm in short axis (series 3, image 46). No pathologically enlarged mediastinal or hilar lymph nodes. There is no pleural effusion or pneumothorax. Moderate upper lobe predominant emphysema. Mild scarring or atelectasis in the lung bases. There is also mild biapical scarring. There are multiple small bilateral pulmonary nodules, some of which demonstrate central calcifications in keeping with granulomas. Quill Stripper noncalcified nodules include an 8 mm left lower lobe nodule (table position -262.5). 9 mm left upper lobe nodule (table position -157.5). 9 mm sherry fissural nodule in the right middle lobe (table position -172.5). This nodule is favored represent benign intrapulmonary lymph node. No suspicious hepatic lesion. Cholelithiasis without evidence of acute cholecystitis. No bile duct dilatation. Pancreas is normal. Calcified granuloma in the spleen. No adrenal mass or nodule. The kidneys enhance symmetrically. There is no hydronephrosis. Punctate nonobstructing bilateral renal calculi. Large simple left renal cyst measuring 13 cm. Contrast in the urinary bladder, which is otherwise normal. There is no ascites or pneumoperitoneum. Large and small bowel are normal in caliber without obstruction. Abdominal aorta is atherosclerotic but not aneurysmal. Mild enlargement of the distal left common iliac artery measuring 20 mm. No lymphadenopathy in the abdomen or pelvis. Multilevel degenerative changes in the spine. No suspicious lytic or blastic lesion. Procedure Note Rich Malhotra MD PhD - 10/06/2024 EXAMINATION: RADIOLOGY CONSULTATION ON OUTSIDE IMAGING STUDY STUDY INITIALLY PERFORMED: 08/09/2024 at [facility]. TYPE OF STUDY: Multiple CT images of the chest, abdomen and pelvis with contrast are provided at the time of this interpretation. CONTRAST ROUTE: Contrast was administered via the intravenous route. The protocol was adequate to address the clinical question. The outside final report was not available at the time of this second opinion interpretation. TYPE OF CONSULTATION: Consult on outside imaging study with images submitted through Outside Image Sharing Service DATE OF CONSULTATION: 10/06/2024 1:19 PM HISTORY: Neck pain and cervical spine fracture COMPARISON: None available. FINDINGS: Heart size is mildly enlarged. No pericardial effusion. Severe burden of multivessel calcified coronary artery disease. The thoracic aorta is atherosclerotic but normal in caliber. No supraclavicular lymphadenopathy. There is a mildly enlarged left axillary lymph node that measures 1.3 cm in short axis (series 3, image 46). No pathologically enlarged mediastinal or hilar lymph nodes. There is no pleural effusion or pneumothorax. Moderate upper lobe predominant emphysema. Mild scarring or atelectasis in the lung bases. There is also mild biapical scarring. There are multiple small bilateral pulmonary nodules, some of which demonstrate central calcifications in keeping with granulomas. Quill Stripper noncalcified nodules include an 8 mm left lower lobe nodule (table position -262.5). 9 mm left upper lobe nodule (table position -157.5). 9 mm sherry fissural nodule in the right middle lobe (table position -172.5). This nodule is favored represent benign intrapulmonary lymph node. No suspicious hepatic lesion. Cholelithiasis without evidence of acute cholecystitis. No bile duct dilatation. Pancreas is normal. Calcified granuloma in the spleen. No adrenal mass or nodule. The kidneys enhance symmetrically. There is no hydronephrosis. Punctate nonobstructing bilateral renal calculi. Large simple left renal cyst measuring 13 cm. Contrast in the urinary bladder, which is otherwise normal. There is no ascites or pneumoperitoneum. Large and small bowel are normal in caliber without obstruction. Abdominal aorta is atherosclerotic but not aneurysmal. Mild enlargement of the distal left common iliac artery measuring 20 mm. No lymphadenopathy in the abdomen or pelvis. Multilevel degenerative changes in the spine. No suspicious lytic or blastic lesion. IMPRESSION: 1. Mildly enlarged left axillary lymph node measuring 1.3 cm in short axis, indeterminate. Per chart review, this has been biopsied in the interval. 2. Multiple indeterminate bilateral pulmonary nodules. The largest measures 9 mm in the left upper lobe. Recommend comparison to prior imaging to document stability. If no such imaging is available and given the background of emphysema, recommend initial follow-up CT in 3 months. 3. No acute findings or evidence of malignancy in the abdomen or pelvis. The findings, conclusions and recommendations within this report do not replace the initial findings, conclusions and recommendations made at the facility where the study was performed based upon the imaging and clinical condition at that time. Comparison with the prior report and clinical history is necessary. The provided images may or may not represent the stockbridge source data set and thus may contain changes that may lower the accuracy of this second-opinion interpretation. Electronically signed by: Rich Malhotra MD, PHD Caren Ladd MD IMG CT PROCEDURES Fi nal Result * US Outside Consult (10/06/2024 12:44 PM CDT) Anatomical Region Laterality Modality Ultrasound 10/06/2024 1:01 PM CDT Impressions 10/06/2024 1:01 PM CDT This ultrasound study was initially nominated as a consult on outside images via Image Sharing Service. However, a consult was not performed because images are of ultrasound-guided axillary lymph node biopsy. Accordingly, there will be no separate report of this study generated by a [facility] Radiologist. Electronically signed by: Yaw Tsai M.D. Narrative 10/06/2024 1:01 PM CDT EXAMINATION: CHANGE CONSULT ON OUTSIDE IMAGES TO REFERENCE IMAGES Procedure Note Yaw Tsai MD PhD - 10/06/2024 EXAMINATION: CHANGE CONSULT ON OUTSIDE IMAGES TO REFERENCE IMAGES IMPRESSION: This ultrasound study was initially nominated as a consult on outside images via Image Sharing Service. However, a consult was not performed because images are of ultrasound-guided axillary lymph node biopsy. Accordingly, there will be no separate report of this study generated by a [facility] Radiologist. Electronically signed by: Yaw Tsai M.D. us Caren Ladd MD IMG US PROCEDURES Fi nal Result * Neuro CT Outside Consult (10/06/2024 12:09 PM CDT) Anatomical Region Laterality Modality N/A Computed Tomogra phy 10/06/2024 2:15 PM CDT Impressions 10/07/2024 8:15 AM CDT 1. Extensive erosive changes within the dens and the left C1-C2 facet joint with enhancing retro-odontoid soft tissue thickening, extensive enhancement within the prevertebral space and in the left posterior paraspinal and sherry-facetal soft tissues including multiple small rim enhancing collections/joint effusions. There is asymmetric alignment of the atlantodental axial joints, subluxed posteriorly on the right and decreased left atlantodental interval. Findings could be related vertebral osteomyelitis, a large malignant mass with erosion of the dens or less likely from an inflammatory process such as rheumatoid arthritis or gout. Probable superimposed pathologic nondisplaced type II dens fracture and superimposed comminuted fracture of the anterior arch of C1. Recommend neurosurgical consultation, consider tissue sampling for further correlation. 2. 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 There is circumferential enhancement within the epidural space greatest in the upper cervical spine, likely related to the above process. 3. 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 This is age indeterminant however may be acute given history of recent chiropractic manipulation. 4. No acute intracranial process visualized by noncontrast CT, however if there remains new or persistent neurologic deficits, consider MRI for further evaluation. 5. Additional multilevel degenerative changes in thoracic and lumbar spine as above without high-grade canal narrowing. The findings, conclusions and recommendations within this report do not replace the initial findings, conclusions and recommendations made at the facility where the study was performed based upon the imaging and clinical condition at that time. Comparison with the prior report and clinical history is necessary. The provided images may or may not represent the stockbridge source data set and thus may contain changes that may lower the accuracy of this second-opinion interpretation. Dictated by: Kapil Guerra M.D. The radiology attending physician has personally reviewed this study, and had reviewed and/or edited this written report and agrees with it. Electronically signed by: Bhargavi Hall M.D. Narrative 10/07/2024 8:15 AM CDT EXAMINATION: RADIOLOGY CONSULTATION ON OUTSIDE IMAGING STUDY STUDY INITIALLY PERFORMED: 10/06/2024 at [facility]. TYPE OF STUDY: Multiple CTA images of the head and neck with without contrast are provided at the time of this interpretation. Multiple CT images of the thoracic and lumbar spine without contrast are provided at time of this interpretation. CONTRAST ROUTE: Contrast was administered via the intravenous route. The protocol was adequate to address the clinical question. The outside final report was not available at the time of this second opinion interpretation. TYPE OF CONSULTATION: Consult on outside imaging study with images submitted through Outside Image Sharing Service DATE OF CONSULTATION: 10/06/2024 12:56 PM HISTORY: 79-year-old man with lower extremity paresthesias in the setting of chiropractic manipulation 2 weeks prior, found to have C1 and C2 fractures at outside hospital and was transferred for further management. COMPARISON: CT chest abdomen pelvis 08/09/2024. FINDINGS: Head: No acute intracranial hemorrhage. No mass or mass effect. There is diffuse cerebral volume loss with ventricular and sulcal prominence. There is no hydrocephalus. Mild patchy calcific atherosclerotic plaquing within the bilateral V4 vertebral arteries at the carotid siphons. Normal corona-white differentiation. No hyperdense vessel sign. Right lens replacement. Orbits otherwise unremarkable. The paranasal sinuses are unremarkable. Mastoid air cells are unremarkable. NECK: There are extensive erosive changes within the dens with retro-odontoid soft tissue thickening with enhancement, numerous calcific fragments, and multilocular rim-enhancing fluid collections adjacent to the dens. There is extensive prevertebral edema extending from the level of the skull base through C3-C4. There is also enhancing soft tissue thickening within the prevertebral space anterior to the left transverse process and involvement of the left C1-C2 joint with large joint effusion, severe associated erosive changes at the facet joint and enhancement within the sherry-facetal soft tissues. There is asymmetric alignment of the atlantoaxial joints, subluxed posteriorly on the right and decreased left atlantodental interval. Probable superimposed pathologic Type 2 dens fracture and comminuted anterior arch fracture. Extensive retropharyngeal soft tissue thickening and edema throughout the upper cervical spine from the craniocervical junction to C4-C5. Multilevel degenerative changes with disc height loss, uncovertebral and facet arthropathy, degenerative endplate changes, osteophytic spurring. 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 Multilevel spinal canal narrowing: Severe narrowing at the cervical medullary junction/C1-C2, due to retro-odontoid soft tissue thickening/pannus with possible cord compression, moderate canal narrowing at C2-C3, severe canal narrowing at C3-C4, moderate to severe canal narrowing at C4-C5, moderate canal narrowing at C5-C6, mild canal narrowing at C6-C7. Multilevel neural foraminal narrowing: Mild bilateral C2-C3, moderate severe left C3-C4, moderate bilateral C4-C5, severe right moderate left C5-C6, moderate bilateral C6-C7. The airways unremarkable. The spaces of the neck are otherwise unremarkable. Partially calcified right upper lobe lung nodule measuring up to 8 mm, favored to represent granuloma. Centrilobular emphysematous changes in the lung apices. No lymphadenopathy in the neck CTA: Aortic arch is nonaneurysmal however is ectatic with maximal diameter of approximately 3.7 cm. Three-vessel arch. Minimal patchy partially calcified atherosclerotic plaquing within the proximal portions of the great vessels without significant focal stenosis. The origins of vertebral arteries are unremarkable course and caliber. 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 Mild patchy partially calcified atherosclerotic plaquing at the carotid bulbs. Significant focal stenosis. The cervical segments of the internal carotid arteries are unremarkable. Mild patchy calcific plaquing at the carotid siphons bilaterally without significant focal stenosis. The right posterior commuting artery is patent. The left posterior communicating artery is diminutive however appears patent. Anterior communicating artery is patent. The basilar artery is unremarkable. The posterior cerebral arteries are unremarkable. Cerebellar arteries are unremarkable. Thoracic spine: Normal thoracic alignment. No acute fracture. Compression deformities of the endplates at multiple levels, most notable at T9 which may represent Schmorl's nodes versus chronic compression fracture. Small calcified disc protrusions at multiple levels. Mild to moderate scattered facet arthropathy. No high-grade osseous canal or neural foraminal narrowing. Flowing multilevel osteophytes across more than 4 contiguous levels asymmetric to the right compatible with diffuse idiopathic skeletal hyperostosis. 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 There is straightening of the normal lordosis. Mild bidirectional curvature in the coronal plane. Minimal stepwise retrolisthesis of L1-L2 through L4-L5. No acute fracture. There is ectasia and borderline aneurysmal dilatation of the infrarenal abdominal aorta. Redemonstrated large left-sided renal cyst and 1.9 cm left iliac artery aneurysm, better visualized on prior CT of the chest abdomen and pelvis. Multilevel degenerative changes with multilevel disc height loss, disc vacuum phenomenon, facet and spinous process arthropathy. Multilevel spinal canal narrowing: Moderate L1-L2, moderate L2-L3, moderate L3-L4, mild L4-L5, mild L5-S1. Multilevel neural foraminal narrowing: Moderate bilateral L1-L2, moderate bilateral L2-L3, severe right moderate left L3-L4 severe right moderate left L4-L5, moderate bilateral L5-S1. Procedure Note Bhargavi Hall MD - 10/07/2024 EXAMINATION: RADIOLOGY CONSULTATION ON OUTSIDE IMAGING STUDY STUDY INITIALLY PERFORMED: 10/06/2024 at [facility]. TYPE OF STUDY: Multiple CTA images of the head and neck with without contrast are provided at the time of this interpretation. Multiple CT images of the thoracic and lumbar spine without contrast are provided at time of this interpretation. CONTRAST ROUTE: Contrast was administered via the intravenous route. The protocol was adequate to address the clinical question. The outside final report was not available at the time of this second opinion interpretation. TYPE OF CONSULTATION: Consult on outside imaging study with images submitted through Outside Image Sharing Service DATE OF CONSULTATION: 10/06/2024 12:56 PM HISTORY: 79-year-old man with lower extremity paresthesias in the setting of chiropractic manipulation 2 weeks prior, found to have C1 and C2 fractures at outside hospital and was transferred for further management. COMPARISON: CT chest abdomen pelvis 08/09/2024. FINDINGS: Head: No acute intracranial hemorrhage. No mass or mass effect. There is diffuse cerebral volume loss with ventricular and sulcal prominence. There is no hydrocephalus. Mild patchy calcific atherosclerotic plaquing within the bilateral V4 vertebral arteries at the carotid siphons. Normal corona-white differentiation. No hyperdense vessel sign. Right lens replacement. Orbits otherwise unremarkable. The paranasal sinuses are unremarkable. Mastoid air cells are unremarkable. NECK: There are extensive erosive changes within the dens with retro-odontoid soft tissue thickening with enhancement, numerous calcific fragments, and multilocular rim-enhancing fluid collections adjacent to the dens. There is extensive prevertebral edema extending from the level of the skull base through C3-C4. There is also enhancing soft tissue thickening within the prevertebral space anterior to the left transverse process and involvement of the left C1-C2 joint with large joint effusion, severe associated erosive changes at the facet joint and enhancement within the sherry-facetal soft tissues. There is asymmetric alignment of the atlantoaxial joints, subluxed posteriorly on the right and decreased left atlantodental interval. Probable superimposed pathologic Type 2 dens fracture and comminuted anterior arch fracture. Extensive retropharyngeal soft tissue thickening and edema throughout the upper cervical spine from the craniocervical junction to C4-C5. Multilevel degenerative changes with disc height loss, uncovertebral and facet arthropathy, degenerative endplate changes, osteophytic spurring. 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 Multilevel spinal canal narrowing: Severe narrowing at the cervical medullary junction/C1-C2, due to retro-odontoid soft tissue thickening/pannus with possible cord compression, moderate canal narrowing at C2-C3, severe canal narrowing at C3-C4, moderate to severe canal narrowing at C4-C5, moderate canal narrowing at C5-C6, mild canal narrowing at C6-C7. Multilevel neural foraminal narrowing: Mild bilateral C2-C3, moderate severe left C3-C4, moderate bilateral C4-C5, severe right moderate left C5-C6, moderate bilateral C6-C7. The airways unremarkable. The spaces of the neck are otherwise unremarkable. Partially calcified right upper lobe lung nodule measuring up to 8 mm, favored to represent granuloma. Centrilobular emphysematous changes in the lung apices. No lymphadenopathy in the neck CTA: Aortic arch is nonaneurysmal however is ectatic with maximal diameter of approximately 3.7 cm. Three-vessel arch. Minimal patchy partially calcified atherosclerotic plaquing within the proximal portions of the great vessels without significant focal stenosis. The origins of vertebral arteries are unremarkable course and caliber. 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 Mild patchy partially calcified atherosclerotic plaquing at the carotid bulbs. Significant focal stenosis. The cervical segments of the internal carotid arteries are unremarkable. Mild patchy calcific plaquing at the carotid siphons bilaterally without significant focal stenosis. The right posterior commuting artery is patent. The left posterior communicating artery is diminutive however appears patent. Anterior communicating artery is patent. The basilar artery is unremarkable. The posterior cerebral arteries are unremarkable. Cerebellar arteries are unremarkable. Thoracic spine: Normal thoracic alignment. No acute fracture. Compression deformities of the endplates at multiple levels, most notable at T9 which may represent Schmorl's nodes versus chronic compression fracture. Small calcified disc protrusions at multiple levels. Mild to moderate scattered facet arthropathy. No high-grade osseous canal or neural foraminal narrowing. Flowing multilevel osteophytes across more than 4 contiguous levels asymmetric to the right compatible with diffuse idiopathic skeletal hyperostosis. 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 There is straightening of the normal lordosis. Mild bidirectional curvature in the coronal plane. Minimal stepwise retrolisthesis of L1-L2 through L4-L5. No acute fracture. There is ectasia and borderline aneurysmal dilatation of the infrarenal abdominal aorta. Redemonstrated large left-sided renal cyst and 1.9 cm left iliac artery aneurysm, better visualized on prior CT of the chest abdomen and pelvis. Multilevel degenerative changes with multilevel disc height loss, disc vacuum phenomenon, facet and spinous process arthropathy. Multilevel spinal canal narrowing: Moderate L1-L2, moderate L2-L3, moderate L3-L4, mild L4-L5, mild L5-S1. Multilevel neural foraminal narrowing: Moderate bilateral L1-L2, moderate bilateral L2-L3, severe right moderate left L3-L4 severe right moderate left L4-L5, moderate bilateral L5-S1. IMPRESSION: 1. Extensive erosive changes within the dens and the left C1-C2 facet joint with enhancing retro-odontoid soft tissue thickening, extensive enhancement within the prevertebral space and in the left posterior paraspinal and sherry-facetal soft tissues including multiple small rim enhancing collections/joint effusions. There is asymmetric alignment of the atlantodental axial joints, subluxed posteriorly on the right and decreased left atlantodental interval. Findings could be related vertebral osteomyelitis, a large malignant mass with erosion of the dens or less likely from an inflammatory process such as rheumatoid arthritis or gout. Probable superimposed pathologic nondisplaced type II dens fracture and superimposed comminuted fracture of the anterior arch of C1. Recommend neurosurgical consultation, consider tissue sampling for further correlation. 2. 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 There is circumferential enhancement within the epidural space greatest in the upper cervical spine, likely related to the above process. 3. 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 This is age indeterminant however may be acute given history of recent chiropractic manipulation. 4. No acute intracranial process visualized by noncontrast CT, however if there remains new or persistent neurologic deficits, consider MRI for further evaluation. 5. Additional multilevel degenerative changes in thoracic and lumbar spine as above without high-grade canal narrowing. The findings, conclusions and recommendations within this report do not replace the initial findings, conclusions and recommendations made at the facility where the study was performed based upon the imaging and clinical condition at that time. Comparison with the prior report and clinical history is necessary. The provided images may or may not represent the stockbridge source data set and thus may contain changes that may lower the accuracy of this second-opinion interpretation. Dictated by: Kapil Guerra M.D. The radiology attending physician has personally reviewed this study, and had reviewed and/or edited this written report and agrees with it. Electronically signed by: Bhargavi Mazaheri, M.D. Caren Ladd MD IMG CT PROCEDURES Fi nal Result * Neuro CT Outside Consult (10/06/2024 12:04 PM CDT) Anatomical Region Laterality Modality N/A Computed Tomogra phy 10/06/2024 2:15 PM CDT Impressions 10/07/2024 8:15 AM CDT 1. Extensive erosive changes within the dens and the left C1-C2 facet joint with enhancing retro-odontoid soft tissue thickening, extensive enhancement within the prevertebral space and in the left posterior paraspinal and sherry-facetal soft tissues including multiple small rim enhancing collections/joint effusions. There is asymmetric alignment of the atlantodental axial joints, subluxed posteriorly on the right and decreased left atlantodental interval. Findings could be related vertebral osteomyelitis, a large malignant mass with erosion of the dens or less likely from an inflammatory process such as rheumatoid arthritis or gout. Probable superimposed pathologic nondisplaced type II dens fracture and superimposed comminuted fracture of the anterior arch of C1. Recommend neurosurgical consultation, consider tissue sampling for further correlation. 2. 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 There is circumferential enhancement within the epidural space greatest in the upper cervical spine, likely related to the above process. 3. 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 This is age indeterminant however may be acute given history of recent chiropractic manipulation. 4. No acute intracranial process visualized by noncontrast CT, however if there remains new or persistent neurologic deficits, consider MRI for further evaluation. 5. Additional multilevel degenerative changes in thoracic and lumbar spine as above without high-grade canal narrowing. The findings, conclusions and recommendations within this report do not replace the initial findings, conclusions and recommendations made at the facility where the study was performed based upon the imaging and clinical condition at that time. Comparison with the prior report and clinical history is necessary. The provided images may or may not represent the stockbridge source data set and thus may contain changes that may lower the accuracy of this second-opinion interpretation. Dictated by: Kapil Guerra M.D. The radiology attending physician has personally reviewed this study, and had reviewed and/or edited this written report and agrees with it. Electronically signed by: Bhargavi Hall M.D. Narrative 10/07/2024 8:15 AM CDT EXAMINATION: RADIOLOGY CONSULTATION ON OUTSIDE IMAGING STUDY STUDY INITIALLY PERFORMED: 10/06/2024 at [facility]. TYPE OF STUDY: Multiple CTA images of the head and neck with without contrast are provided at the time of this interpretation. Multiple CT images of the thoracic and lumbar spine without contrast are provided at time of this interpretation. CONTRAST ROUTE: Contrast was administered via the intravenous route. The protocol was adequate to address the clinical question. The outside final report was not available at the time of this second opinion interpretation. TYPE OF CONSULTATION: Consult on outside imaging study with images submitted through Outside Image Sharing Service DATE OF CONSULTATION: 10/06/2024 12:56 PM HISTORY: 79-year-old man with lower extremity paresthesias in the setting of chiropractic manipulation 2 weeks prior, found to have C1 and C2 fractures at outside hospital and was transferred for further management. COMPARISON: CT chest abdomen pelvis 08/09/2024. FINDINGS: Head: No acute intracranial hemorrhage. No mass or mass effect. There is diffuse cerebral volume loss with ventricular and sulcal prominence. There is no hydrocephalus. Mild patchy calcific atherosclerotic plaquing within the bilateral V4 vertebral arteries at the carotid siphons. Normal corona-white differentiation. No hyperdense vessel sign. Right lens replacement. Orbits otherwise unremarkable. The paranasal sinuses are unremarkable. Mastoid air cells are unremarkable. NECK: There are extensive erosive changes within the dens with retro-odontoid soft tissue thickening with enhancement, numerous calcific fragments, and multilocular rim-enhancing fluid collections adjacent to the dens. There is extensive prevertebral edema extending from the level of the skull base through C3-C4. There is also enhancing soft tissue thickening within the prevertebral space anterior to the left transverse process and involvement of the left C1-C2 joint with large joint effusion, severe associated erosive changes at the facet joint and enhancement within the sherry-facetal soft tissues. There is asymmetric alignment of the atlantoaxial joints, subluxed posteriorly on the right and decreased left atlantodental interval. Probable superimposed pathologic Type 2 dens fracture and comminuted anterior arch fracture. Extensive retropharyngeal soft tissue thickening and edema throughout the upper cervical spine from the craniocervical junction to C4-C5. Multilevel degenerative changes with disc height loss, uncovertebral and facet arthropathy, degenerative endplate changes, osteophytic spurring. 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 Multilevel spinal canal narrowing: Severe narrowing at the cervical medullary junction/C1-C2, due to retro-odontoid soft tissue thickening/pannus with possible cord compression, moderate canal narrowing at C2-C3, severe canal narrowing at C3-C4, moderate to severe canal narrowing at C4-C5, moderate canal narrowing at C5-C6, mild canal narrowing at C6-C7. Multilevel neural foraminal narrowing: Mild bilateral C2-C3, moderate severe left C3-C4, moderate bilateral C4-C5, severe right moderate left C5-C6, moderate bilateral C6-C7. The airways unremarkable. The spaces of the neck are otherwise unremarkable. Partially calcified right upper lobe lung nodule measuring up to 8 mm, favored to represent granuloma. Centrilobular emphysematous changes in the lung apices. No lymphadenopathy in the neck CTA: Aortic arch is nonaneurysmal however is ectatic with maximal diameter of approximately 3.7 cm. Three-vessel arch. Minimal patchy partially calcified atherosclerotic plaquing within the proximal portions of the great vessels without significant focal stenosis. The origins of vertebral arteries are unremarkable course and caliber. 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 Mild patchy partially calcified atherosclerotic plaquing at the carotid bulbs. Significant focal stenosis. The cervical segments of the internal carotid arteries are unremarkable. Mild patchy calcific plaquing at the carotid siphons bilaterally without significant focal stenosis. The right posterior commuting artery is patent. The left posterior communicating artery is diminutive however appears patent. Anterior communicating artery is patent. The basilar artery is unremarkable. The posterior cerebral arteries are unremarkable. Cerebellar arteries are unremarkable. Thoracic spine: Normal thoracic alignment. No acute fracture. Compression deformities of the endplates at multiple levels, most notable at T9 which may represent Schmorl's nodes versus chronic compression fracture. Small calcified disc protrusions at multiple levels. Mild to moderate scattered facet arthropathy. No high-grade osseous canal or neural foraminal narrowing. Flowing multilevel osteophytes across more than 4 contiguous levels asymmetric to the right compatible with diffuse idiopathic skeletal hyperostosis. 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 There is straightening of the normal lordosis. Mild bidirectional curvature in the coronal plane. Minimal stepwise retrolisthesis of L1-L2 through L4-L5. No acute fracture. There is ectasia and borderline aneurysmal dilatation of the infrarenal abdominal aorta. Redemonstrated large left-sided renal cyst and 1.9 cm left iliac artery aneurysm, better visualized on prior CT of the chest abdomen and pelvis. Multilevel degenerative changes with multilevel disc height loss, disc vacuum phenomenon, facet and spinous process arthropathy. Multilevel spinal canal narrowing: Moderate L1-L2, moderate L2-L3, moderate L3-L4, mild L4-L5, mild L5-S1. Multilevel neural foraminal narrowing: Moderate bilateral L1-L2, moderate bilateral L2-L3, severe right moderate left L3-L4 severe right moderate left L4-L5, moderate bilateral L5-S1. Procedure Note Bhargavi Hall MD - 10/07/2024 EXAMINATION: RADIOLOGY CONSULTATION ON OUTSIDE IMAGING STUDY STUDY INITIALLY PERFORMED: 10/06/2024 at [facility]. TYPE OF STUDY: Multiple CTA images of the head and neck with without contrast are provided at the time of this interpretation. Multiple CT images of the thoracic and lumbar spine without contrast are provided at time of this interpretation. CONTRAST ROUTE: Contrast was administered via the intravenous route. The protocol was adequate to address the clinical question. The outside final report was not available at the time of this second opinion interpretation. TYPE OF CONSULTATION: Consult on outside imaging study with images submitted through Outside Image Sharing Service DATE OF CONSULTATION: 10/06/2024 12:56 PM HISTORY: 79-year-old man with lower extremity paresthesias in the setting of chiropractic manipulation 2 weeks prior, found to have C1 and C2 fractures at outside hospital and was transferred for further management. COMPARISON: CT chest abdomen pelvis 08/09/2024. FINDINGS: Head: No acute intracranial hemorrhage. No mass or mass effect. There is diffuse cerebral volume loss with ventricular and sulcal prominence. There is no hydrocephalus. Mild patchy calcific atherosclerotic plaquing within the bilateral V4 vertebral arteries at the carotid siphons. Normal corona-white differentiation. No hyperdense vessel sign. Right lens replacement. Orbits otherwise unremarkable. The paranasal sinuses are unremarkable. Mastoid air cells are unremarkable. NECK: There are extensive erosive changes within the dens with retro-odontoid soft tissue thickening with enhancement, numerous calcific fragments, and multilocular rim-enhancing fluid collections adjacent to the dens. There is extensive prevertebral edema extending from the level of the skull base through C3-C4. There is also enhancing soft tissue thickening within the prevertebral space anterior to the left transverse process and involvement of the left C1-C2 joint with large joint effusion, severe associated erosive changes at the facet joint and enhancement within the sherry-facetal soft tissues. There is asymmetric alignment of the atlantoaxial joints, subluxed posteriorly on the right and decreased left atlantodental interval. Probable superimposed pathologic Type 2 dens fracture and comminuted anterior arch fracture. Extensive retropharyngeal soft tissue thickening and edema throughout the upper cervical spine from the craniocervical junction to C4-C5. Multilevel degenerative changes with disc height loss, uncovertebral and facet arthropathy, degenerative endplate changes, osteophytic spurring. 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 Multilevel spinal canal narrowing: Severe narrowing at the cervical medullary junction/C1-C2, due to retro-odontoid soft tissue thickening/pannus with possible cord compression, moderate canal narrowing at C2-C3, severe canal narrowing at C3-C4, moderate to severe canal narrowing at C4-C5, moderate canal narrowing at C5-C6, mild canal narrowing at C6-C7. Multilevel neural foraminal narrowing: Mild bilateral C2-C3, moderate severe left C3-C4, moderate bilateral C4-C5, severe right moderate left C5-C6, moderate bilateral C6-C7. The airways unremarkable. The spaces of the neck are otherwise unremarkable. Partially calcified right upper lobe lung nodule measuring up to 8 mm, favored to represent granuloma. Centrilobular emphysematous changes in the lung apices. No lymphadenopathy in the neck CTA: Aortic arch is nonaneurysmal however is ectatic with maximal diameter of approximately 3.7 cm. Three-vessel arch. Minimal patchy partially calcified atherosclerotic plaquing within the proximal portions of the great vessels without significant focal stenosis. The origins of vertebral arteries are unremarkable course and caliber. 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 Mild patchy partially calcified atherosclerotic plaquing at the carotid bulbs. Significant focal stenosis. The cervical segments of the internal carotid arteries are unremarkable. Mild patchy calcific plaquing at the carotid siphons bilaterally without significant focal stenosis. The right posterior commuting artery is patent. The left posterior communicating artery is diminutive however appears patent. Anterior communicating artery is patent. The basilar artery is unremarkable. The posterior cerebral arteries are unremarkable. Cerebellar arteries are unremarkable. Thoracic spine: Normal thoracic alignment. No acute fracture. Compression deformities of the endplates at multiple levels, most notable at T9 which may represent Schmorl's nodes versus chronic compression fracture. Small calcified disc protrusions at multiple levels. Mild to moderate scattered facet arthropathy. No high-grade osseous canal or neural foraminal narrowing. Flowing multilevel osteophytes across more than 4 contiguous levels asymmetric to the right compatible with diffuse idiopathic skeletal hyperostosis. 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 There is straightening of the normal lordosis. Mild bidirectional curvature in the coronal plane. Minimal stepwise retrolisthesis of L1-L2 through L4-L5. No acute fracture. There is ectasia and borderline aneurysmal dilatation of the infrarenal abdominal aorta. Redemonstrated large left-sided renal cyst and 1.9 cm left iliac artery aneurysm, better visualized on prior CT of the chest abdomen and pelvis. Multilevel degenerative changes with multilevel disc height loss, disc vacuum phenomenon, facet and spinous process arthropathy. Multilevel spinal canal narrowing: Moderate L1-L2, moderate L2-L3, moderate L3-L4, mild L4-L5, mild L5-S1. Multilevel neural foraminal narrowing: Moderate bilateral L1-L2, moderate bilateral L2-L3, severe right moderate left L3-L4 severe right moderate left L4-L5, moderate bilateral L5-S1. IMPRESSION: 1. Extensive erosive changes within the dens and the left C1-C2 facet joint with enhancing retro-odontoid soft tissue thickening, extensive enhancement within the prevertebral space and in the left posterior paraspinal and sherry-facetal soft tissues including multiple small rim enhancing collections/joint effusions. There is asymmetric alignment of the atlantodental axial joints, subluxed posteriorly on the right and decreased left atlantodental interval. Findings could be related vertebral osteomyelitis, a large malignant mass with erosion of the dens or less likely from an inflammatory process such as rheumatoid arthritis or gout. Probable superimposed pathologic nondisplaced type II dens fracture and superimposed comminuted fracture of the anterior arch of C1. Recommend neurosurgical consultation, consider tissue sampling for further correlation. 2. 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 There is circumferential enhancement within the epidural space greatest in the upper cervical spine, likely related to the above process. 3. 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 This is age indeterminant however may be acute given history of recent chiropractic manipulation. 4. No acute intracranial process visualized by noncontrast CT, however if there remains new or persistent neurologic deficits, consider MRI for further evaluation. 5. Additional multilevel degenerative changes in thoracic and lumbar spine as above without high-grade canal narrowing. The findings, conclusions and recommendations within this report do not replace the initial findings, conclusions and recommendations made at the facility where the study was performed based upon the imaging and clinical condition at that time. Comparison with the prior report and clinical history is necessary. The provided images may or may not represent the stockbridge source data set and thus may contain changes that may lower the accuracy of this second-opinion interpretation. Dictated by: Kapil Guerra M.D. The radiology attending physician has personally reviewed this study, and had reviewed and/or edited this written report and agrees with it. Electronically signed by: Bhargavi Hall M.D. Caren Ladd MD IMG CT PROCEDURES Fi nal Result * Thromboelastometry Panel - Heparin (10/06/2024 11:14 AM CDT) HEPTEM-CT 183 141 - 215 sec HEPTEM-A5 >59 33 - 51 mm [facility] HEPTEM-A10 >68 44 - 61 mm [facility] HEPTEM-A20 >73 52 - 67 mm [facility] HEPTEM-MCF >75 54 - 69 mm [facility] Blood 10/06/2024 11:1 4 AM CDT 10/06/2024 11:24 AM CDT us Pan Leiva MD LAB BLOOD ORDERABLES Edit ed Result - Final [facility] [place] [address] * (ABNORMAL) Thromboelastometry Panel - Intrinsic (10/06/2024 11:14 AM CDT) INTEM-CT 194 139 - 205 sec INTEM-A5 65(H) 36 - 54 mm [facility] INTEM-A10 73(H) 46 - 63 mm [facility] INTEM-A20 78(H) 53 - 68 mm [facility] INTEM-MCF 79(H) 55 - 70 mm [facility] INTEM-LI60 99 93 - 100 % [facility] INTEM-ML 2 0 - 7 % [facility] Blood 10/06/2024 11:1 4 AM CDT 10/06/2024 11:24 AM CDT us Pan Leiva MD LAB BLOOD ORDERABLES Edit ed Result - Final [facility] [place] [address] * Thromboelastometry Panel - Fibrinogen (10/06/2024 11:14 AM CDT) FIBTEM-A5 See Comment 5 - 16 Comment:Credited, laboratory instrument error. FIBTEM-A10 See Comment 6 - 17 [facility] Comment:Credited, laboratory instrument error. FIBTEM-A20 See Comment 6 - 18 [facility] Comment:Credited, laboratory instrument error. FIBTEM-MCF See Comment 9 - 19 [facility] Comment:Credited, laboratory instrument error. Blood 10/06/2024 11:1 4 AM CDT 10/06/2024 11:24 AM CDT Pan Leiva MD LAB BLOOD ORDERABLES Edit ed Result - Final Performing Organization Address City/[facility] Co de Phone Number [facility] [place] [address] * (ABNORMAL) Thromboelastometry Panel - Extrinsic (10/06/2024 11:14 AM CDT) EXTEM-CT 72 51 - 73 sec EXTEM-A5 68(H) 33 - 52 mm [facility] EXTEM-A10 76(H) 45 - 62 mm [facility] EXTEM-A20 81(H) 54 - 69 mm [facility] EXTEM-MCF >82 57 - 72 mm [facility] EXTEM-LI60 100 94 - 100 % [facility] EXTEM-ML 1 0 - 6 % [facility] Blood 10/06/2024 11:1 4 AM CDT 10/06/2024 11:24 AM CDT Pan Leiva MD LAB BLOOD ORDERABLES Edit ed Result - Final Performing Organization Address City/[facility] Co de Phone Number [facility] [place] [address] * (ABNORMAL) Differential, auto (10/06/2024 11:14 AM CDT) Neutrophil abs 10.16(H) 1.50 - 6.50 K/cumm Imm gran abs 0.05 0.00 - 0.10 K/cumm [facility] Lymphocyte abs 1.34 0.80 - 3.30 K/cumm [facility] Monocyte abs 1.35(H) 0.20 - 0.80 K/cumm [facility] Eosinophil abs 0.01 0.00 - 0.50 K/cumm [facility] Basophil abs 0.05 0.00 - 0.10 K/cumm [facility] Neutrophil pct 78.4 % [facility] Comment: Interpretive Data Percent cell count reference ranges are not reported, since discordance with absolute values may lead to misinterpretation of CBC data. Current Interpretive Data was last revised on 2017. Imm gran pct 0.4 % [facility] Comment: Interpretive Data Percent cell count reference ranges are not reported, since discordance with absolute values may lead to misinterpretation of CBC data. Current Interpretive Data was last revised on 2017. Lymphocyte pct 10.3 % [facility] Comment: Interpretive Data Percent cell count reference ranges are not reported, since discordance with absolute values may lead to misinterpretation of CBC data. Current Interpretive Data was last revised on 2017. Monocyte pct 10.4 % [facility] Comment: Interpretive Data Percent cell count reference ranges are not reported, since discordance with absolute values may lead to misinterpretation of CBC data. Current Interpretive Data was last revised on 2017. Eosinophil pct 0.1 % [facility] Comment: Interpretive Data Percent cell count reference ranges are not reported, since discordance with absolute values may lead to misinterpretation of CBC data. Current Interpretive Data was last revised on 2017. Basophil pct 0.4 % [facility] Comment: Interpretive Data Percent cell count reference ranges are not reported, since discordance with absolute values may lead to misinterpretation of CBC data. Current Interpretive Data was last revised on 2017. Blood 10/06/2024 11:1 4 AM CDT 10/06/2024 11:24 AM CDT us Pan Leiva MD LAB BLOOD ORDERABLES Donita l Result [facility] [place] [address] * (ABNORMAL) CBC with auto differential (10/06/2024 11:14 AM CDT) WBC 12.96(H) 3.80 - 9.90 K/cumm Comment:Code Blue Specimen C ode Blue Specimen Hgb 10.2(L) 13.0 - 17.5 g/dL [facility] Hct 32.2(L) 38.9 - 50.3 % [facility] Plt 607(H) 150 - 400 K/cumm [facility] MPV 8.6(L) 9.1 - 12.3 fL [facility] RBC 4.01(L) 4.30 - 5.80 M/cumm [facility] MCV 80.3(L) 81.3 - 96.4 fL [facility] MCH 25.4(L) 27.1 - 33.3 pg [facility] MCHC 31.7(L) 32.3 - 35.7 g/dL [facility] RDW CV 23.6(H) 11.1 - 14.9 % [facility] RDW SD 67.2(H) 35.7 - 48.1 fL [facility] NRBC abs 0.00 0.00 - 0.01 K/cumm [facility] Blood 10/06/2024 11:1 4 AM CDT 10/06/2024 11:24 AM CDT Pan Leiva MD LAB BLOOD ORDERABLES Donita l Result [facility] [place] [address] * aPTT (10/06/2024 11:14 AM CDT) Pathologist [facility] aPTT 32 28 - 38 sec Comment: Code Blue Specimen Interpretive Data Heparin therapeutic range: 66.0 - 100.0 seconds. Range based on correlation with therapeutic heparin activity range of 0.3 - 0.7 Units/mL. Current interpretive data was last revised on 2023. Blood 10/06/2024 11:1 4 AM CDT 10/06/2024 11:24 AM CDT Pan Leiva MD LAB BLOOD ORDERABLES Donita l Result Performing Organization Address City/[facility] Co de Phone Number [facility] [place] [address] * (ABNORMAL) Erythrocyte sedimentation rate (10/06/2024 11:14 AM CDT) Erythrocyte sedimentation rate 98(H) 1 - 20 mm/hr Blood 10/06/2024 11:1 4 AM CDT 10/06/2024 11:27 AM CDT Pan Leiva MD LAB BLOOD ORDERABLES Donita l Result Performing Organization Address [facility] de Phone Number [facility] [place] [address] * (ABNORMAL) Protime-INR (10/06/2024 11:14 AM CDT) PT 14.6(H) 9.7 - 13.0 sec Comment:Code Blue Specimen INR 1.34(H) 0.90 - 1.20 [facility] Comment: Code Blue Specimen Interpretive data Oral anticoagulant therapeutic ranges: Venous thromboembolism prophylaxis or treatment: 2.0-3.0 CARDIOLOGY Standard range: 2.0-3.0 High-intensity range: 2.5-3.5 Refer to indication-specific guidelines for appropriate target ranges for prosthetic heart valve replacement. Current interpretive data was last revised on 2019. Blood 10/06/2024 11:1 4 AM CDT 10/06/2024 11:24 AM CDT Pan Leiva MD LAB BLOOD ORDERABLES Donita l Result [facility] [place] [address] * Type and screen (10/06/2024 11:14 AM CDT) ABO Rh O Positive Thomas, indirect Negative [facility] Blood 10/06/2024 11:1 4 AM CDT 10/06/2024 11:30 AM CDT Narrative [facility] - 10/06/2024 12:45 PM CDT Has the patient had Daratumumab or Isatuximab in the past 6 months?->Unknown Pan Leiva MD LAB BLOOD BANK TEST ORDER PARIS Final Result Performing Organization Address [facility] Co de Phone Number [facility] [place] [address] * Ethanol (10/06/2024 11:14 AM CDT) Ethanol <10 <=10 mg/dL Comment: Code Blue Specimen Interpretive Data Legal limit of intoxication > or = 80 mg/dL Levels > or = 400 mg/dL are potentially TOXIC. Current interpretive data was last revised on 2018. Blood 10/06/2024 11:1 4 AM CDT 10/06/2024 11:24 AM CDT Pan Leiva MD LAB BLOOD ORDERABLES Donita l Result [facility] [place] [address] * (ABNORMAL) POC Blood Gas and Chemistries, Venous - (10/06/2024 11:13 AM CDT) pH, Dirk POC 7.45(H) 7.32 - 7.43 pCO2, dirk POC 41 40 - 50 mmHg [facility] pO2, dirk POC 50 mmHg [facility] Na, POC 136 135 - 145 mmol/L [facility] K POC 4.0 3.3 - 4.9 mmol/L [facility] Comment: Interpretive Data Not all point of care methods assess for hemolysis. Confirm with instrument and retest K+ if not consistent with clinical signs and symptoms. Current Interpretive Data was last revised on 2023. Cl, POC 105 97 - 110 mmol/L [facility] Ionized Ca, POC 5.02 4.50 - 5.10 mg/dL [facility] Glucose, POC 126 70 - 199 mg/dL [facility] Lactate POC 1.2 0.7 - 2.0 mmol/L [facility] MetHb, Dirk POC 0.8 0.0 - 1.9 % [facility] O2 Sat, Dirk POC (Ramesh) 79 % [facility] Base excess, POC 4.1 mmol/L [facility] HCO3, Dirk POC 28 20 - 30 mmol/L [facility] Hct, POC 32.0(L) 41.4 - 51.6 % [facility] Total Hb, POC 10.6(L) 13.8 - 17.2 g/dL [facility] Blood 10/06/2024 11:1 3 AM CDT 10/06/2024 11:13 AM CDT us Hanane Marquis MD LAB POCT ORDERABLES - DEVICE Fin al Result [facility] [place] [address] from Last 3 Months Additional Health Concerns Active Problems Noted Date Diagnosed Date Initial Follow-Up Appointment 10/17/2024 Problems In Home Environment 10/17/2024 Insurance AET[employer] MEDICARE GOLD AET[employer] MEDICARE GOLD Advance Directives For more information, please contact: [phone] * Full Code (Latest Code Status on File) Date Activated Date Inactivated Comments 10/06/2024 6:01 PM 10/14/2024 7:56 PM Care Teams Learning Coach Relationship Specialty Start Date End Date Willi Wyatt DO [address] [place] [address] PCP - General Internal Medicine 10/06/24 Jose M West MD [address] IM INFECTIOUS DISEASE, [address] [place] [address] PCP - Home Infusion Attending Infectious Diseases 10/19/24 Sangeeta Wang, PIN SORTER AND BAGGER [address] [facility] ([facility] Mailstop [phone] [place] [address] SHOP Outpatient Software Packager 10/17/24 Vishal Marie [facility] Pharmacist Pharmacy 10/18/24
--- OUTSIDE RECORDS SUMMARY | 2024-10-25 20:44 | XMS_ITS | Encounter Summary ---
Author Organization [facility] Healthcare Address [address] [place] [address] Care Team Providers Care Freight Receiver Name Role Phone Willi Wyatt Primary Care Provider [phone] Sangeeta Wang [facility] Unavailable [phone] Bernardino Cooper [facility] [place] [facility] Unavailable Unavailabl Vishal Starr [facility] [place] [facility] Unavailable Unavail able Jose M West MD Unavailable [phone] Encounter Details Date Type Department Care Team (Late st Contact Info) Description 10/18/2024 Home Infusion [facility] Home Infusion Therapy [address] [place] [address] Bernardino Cooper, [facility] [place] [facility] 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) (Primary Dx) Social History Tobacco Use Types [...] materials from doctor or pharmacy Sometimes 10/15/2024 [facility] Utilities Answer Date Recorded In the past [...] often do you attend chur ch or advent services? More than 4 times per year 10/17/2024 Do you belong to any clubs o r organizations such as taoism groups, unions, fraternal or athletic groups, or [...] time in the past 12 m [facility], were you homeless or living in a [...] on file documented as of this encounter Ordered Prescriptions Prescription Sig Dispense Quantity Refills Last Filled Start Date End Date heparin 10 unit/mL syringe flush syringeIndication s:Maintain Patency of Indwelling Vascular Catheter Administer 5 mL (50 Units total) into IV catheter as needed (catheter maintenance) 79232 mL 10/18/2024 6 sodium chloride 0.9% flush syringeIndication s: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) Infuse 10 mL IV as needed for line care 47162 mL 10/18/2024 oxacillin IVPB 12,000 mg in 0.9% sodium chloride 500 mL (elastomeric)Kimberlee cations:Osteomyel itis of vertebra of cervical region (HCC) Infuse 500 mL (12,000 mg total) IV daily for 24 hours at 20 mL/hr via elastomeric device. Remove from refrigerator 3-4 hours before administration. 77531 mL 10/14/2024 5 heparin, porcine, PF, 10 unit/mL solutionIndicatio ns:Maintain Patency of Indwelling Vascular Catheter Administer 5 mL into IV catheter as needed (catheter maintenance) 10/18/2024 5 documented in this encounter Plan of Treatment [...] support and son is staying with him, [facility] confirmed to be involved. documented as of this encounter Visit Diagnoses Diagnosis 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)- Primary documented in this encounter Discontinued Medications Medication Sig Discontinue Reason Start Date End Da te sodium chloride 0.9% flush syringeIndications:PIC C line care Administer 10-20 mL into catheter as needed for line care 10/14/2024 10/18/2024 sodium chloride 0.9% flush syringeIndications:PIC C line care Administer 10-40 mL into catheter every 12 (twelve) hours 10/14/2024 10/18/2024 heparin, porcine, PF, 10 unit/mL solutionIndications:Ma intain Patency of Indwelling Vascular Catheter Administer 5 mL into IV catheter as needed (catheter maintenance) Reorder 10/18/2024 10/18/2024 documented as of this encounter Additional Health Concerns Active Problems Noted Date Diagnosed Date Initial Follow-Up Appointment 10/17/2024 Problems In Home Environment 10/17/2024 documented as of this encounter Care Teams Freight Receiver Relationship Specialty Start Date End Date Willi Wyatt DO [address] [place] [address] PCP - General Internal Medicine 10/06/24 Jose M West MD [address] IM INFECTIOUS DISEASE, [address] [place] [address] PCP - Home Infusion Attending Infectious Diseases 10/19/24 Sangeeta Wang, [facility] [address] [facility] ([facility] Mailstop [phone] [place] [address] SHOP Outpatient Blow Pit Helper 10/17/24 Bernardino Cooper, [facility] [place] [facility] Pharmacist Pharmacy 10/18/24 10/18/24 Vishal Marie, [facility] [place] [facility] Pharmacist Pharmacy 10/18/24 documented as of this encounter
--- OUTSIDE RECORDS SUMMARY | 2024-10-25 20:44 | XMS_ITS | Encounter Summary ---
Author Organization [facility] Address [address] [place] [address] Phone Care Team Providers Care Clinical Research Coordinator Name Role Phone Willi Wyatt DO Primary Care Provider [phone] Sangeeta Wang [facility] Unavailable [phone] Vishal Marie [facility] Unavailable Unavail able Jose M West MD Unavailable [phone] Encounter Details Date Type Department Care Team (Late st Contact Info) Description 10/25/2024 Documentation [facility] Infectious Diseases [address] [place] [address] [address] [place] [address] Bar Porter MD [address] [facility] [address] [place] [address] Social History Tobacco Use Types Packs/Day Years [...] materials from doctor or pharmacy Sometimes 10/15/2024 C Utilities Answer Date Recorded In the past [...] often do you attend chur ch or restoration services? More than 4 times per year 10/17/2024 Do you belong to any clubs o r organizations such as restorationism groups, unions, fraternal or athletic groups, or [...] any time in the past 12 m [facility], were you homeless or living in a jail (including now)? No 10/17/2024 Personal Safety Answer [...] on file documented as of this encounter Progress Notes * Bar Porter MD - 10/25/2024 8:14 PM CDT Infectious Diseases Consulting Actuary Note Received call from pharmacist Carrie Ruiz of [facility] Home Infusion for critical potassium level of 2.4.She stated the patient had already been contacted and agreed to present with family to nearest emergency room for workup and treatment. I am in agreement with this plan given the risk for severe injury or without timely correction. Bar Porter MD PhD Infectious Diseases Fellow documented in this encounter Plan of Treatment [...] support and son is staying with him, [facility] confirmed to be involved. documented as of this encounter Visit Diagnoses Not on filedocumented in this encounter Additional Health Concerns Active Problems Noted Date Diagnosed Date Initial Follow-Up Appointment 10/17/2024 Problems In Home Environment 10/17/2024 documented as of this encounter Care Teams Clinical Research Coordinator Relationship Specialty Start Date End Date Willi Wyatt DO [address] [place] [address] PCP - General Internal Medicine 10/06/24 Jose M West MD [address] IM INFECTIOUS DISEASE, [address] [place] [address] PCP - Home Infusion Attending Infectious Diseases 10/19/24 Sangeeta Wang, BLENDER CONVEYOR OPERATOR [address] [facility] ([facility] Mailstop [phone] [place] [address] SHOP Outpatient Bulk Loader 10/17/24 Vishal Marie [facility] Pharmacist Pharmacy 10/18/24 documented as of this encounter
--- OUTSIDE RECORDS SUMMARY | 2024-10-25 20:44 | XMS_ITS | Encounter Summary ---
Author Organization [facility] Healthcare Address [address] [place] [address] Care Team Providers Care Endbander Name Role Phone Willi Wyatt Primary Care Provider [phone] Sangeeta Wang LCSW Unavailable [phone] Vishal Marie [facility] Unavailable Unavail able Jose M West MD Unavailable [phone] Reason for Visit * Reason Comments Successful Phone Call Encounter Details Date Type Department Care Team (Late st Contact Info) Description 10/24/2024 SHOP/CHAP Subsequent Outreach [facility] OP CASE MANAGEMENT [address] [place] [address] Sangeeta Wang LCSW [address] [facility] ([facility]) Mailstop [phone] [place] [address] Social History Tobacco Use Types Packs/Day Years [...] materials from doctor or pharmacy Sometimes 10/15/2024 [facility] Utilities Answer Date Recorded In the past [...] often do you attend chur ch or rastafarian services? More than 4 times per year 10/17/2024 Do you belong to any clubs o r organizations such as buddhism groups, unions, fraternal or athletic groups, or [...] any time in the past 12 m [facility], were you homeless or living in a residential (including now)? No 10/17/2024 Personal Safety Answer [...] as of this encounter Progress Notes * Sangeeta Wang LCSW - 10/24/2024 2:35 PM CDT OCM reached out to the pt today via phone. Pt states that he is doing fair, pt states that he is scheduled to see his ID Doctor on Thursday. Pt states that he is not taking his rifAMPin, but states that he cut one pill off at night. Pt states that he did this due not being able to sleep after taking the medication. OCM encouraged pt to communicate his concerns regarding the medication with his providers. OCM alerted the CLINICAL PROJECT MANAGER Dago via [employer]. Sangeeta Wang LCSW documented in this encounter Plan of Treatment [...] support and son is staying with him, [facility] confirmed to be involved. documented as of this encounter Visit Diagnoses Not on filedocumented in this encounter Additional Health Concerns Active Problems Noted Date Diagnosed Date Initial Follow-Up Appointment 10/17/2024 Problems In Home Environment 10/17/2024 documented as of this encounter Care Teams Endbander Relationship Specialty Start Date End Date Willi Wyatt DO [address] [address] PCP - General Internal Medicine 10/06/24 Jose M West MD [address] IM INFECTIOUS DISEASE, [address] [place] [address] PCP - Home Infusion Attending Infectious Diseases 10/19/24 Sangeeta Wang, ASPHALT PLANT WORKER [address] [facility] ([facility]) Mailstop [phone] [place] [address] SHOP Outpatient Tag Marker 10/17/24 Vishal Marie, [facility] Pharmacist Pharmacy 10/18/24 documented as of this encounter
--- OUTSIDE RECORDS SUMMARY | 2024-10-25 20:44 | XMS_ITS | Encounter Summary ---
Author Organization [facility] Healthcare Address [address] [place] [address] Care Team Providers Care Grounds Crew Supervisor Name Role Phone Willi Wyatt DO Primary Care Provider [phone] Sangeeta WangW Unavailable [phone] Vishal Marie [facility] Unavailable Unavail able Jose M West MD Unavailable [phone] Reason for Visit * Auth/Cert (Routine) Specialty Diagnoses / Procedures Referred By Macrina t Referred To Contact Referral ID Status Reason Start Date Expiration Date Visits Re quested Visits Authorized [id number] 1 1 Encounter Details Date Type Department Care Team (Late st Contact Info) Description 10/25/2024 Home Care Visit [address] [place] [address] Sangeeta Brunson, KIERSTEN SN TRIAGE ENCOUNTER Social History Tobacco Use Types Packs/Day Years [...] materials from doctor or pharmacy Sometimes 10/15/2024 [facility] Utilities Answer Date Recorded In the past 12 months has e electric, gas, oil, or water company [...] often do you attend chur ch or latter day services? More than 4 times per year 10/17/2024 Do you belong to any clubs o r organizations such as hindu groups, unions, fraternal or athletic groups, or [...] any time in the past 12 m [facility], were you homeless or living in a prison (including now)? No 10/17/2024 Personal Safety Answer [...] on file documented as of this encounter Miscellaneous Notes * Triage Note - Sangeeta Brunson RN - 10/25/2024 7:03 PM CDT JESSICA W/[facility] SABINO ROCHA [phone] W UNKNOWN 45 RE: PLEASE CALL ME FOR CRITICAL LAB RESULTS. Return call time: 7:06pm Communication details: Lab reports critical potassium of 2.4. Infusion pharmacist paged at 7:08p. Return call from Carrie Ruiz [facility] Infusion Pharmacist who stated she would follow-up with MD regarding lab. Follow-up: emailed Charge Nurse, ROEL, Infusion Pharmacist documented in this encounter Plan of Treatment [...] support and son is staying with him, [facility] confirmed to be involved. documented as of this encounter Visit Diagnoses Not on filedocumented in this encounter Additional Health Concerns Active Problems Noted Date Diagnosed Date Initial Follow-Up Appointment 10/17/2024 Problems In Home Environment 10/17/2024 documented as of this encounter Home Health Visit - Care Plan Visit Details Visit Type -SN Triage Encoun ter Discipline -Detention Problems Problem Description Start Date Status Goals Interve ntions IV Therapy-Manageme nt, Education, and Maintenance Disciplines: Detention IV Management, education, and maintenance for home IV therapy. 10/15/2024 Active - 2 problem interventions scheduled/documen erik in this visit Pressure Prevention Disciplines: Skilled Disciplines Pressure Prevention 10/15/2024 Active 1 goal linked to scheduled/documen erik intervention 1 goal intervention scheduled/documen erik in this visit Medications Disciplines: Detention Management of home medications 10/15/2024 Active 1 goal linked to scheduled/documen erik intervention 2 goal interventions scheduled/documen erik in this visit Monitor patient's vital signs every home health visit Disciplines: Skilled Disciplines, SN, PT, OT, INTERNATIONAL ACCOUNTING MANAGER, MACHINE STONE POLISHER Monitor patient's vital signs every home health visit. 10/15/2024 Active 1 goal linked to scheduled/documen erik intervention 1 goal intervention scheduled/documen erik in this visit Infection Prevention Disciplines: Skilled Disciplines Infection Prevention [...] Associated Problem Outcome Goal Met? Visit Notes Prevent development of pressure injuries Description: intermodal owner operator truck driver goal: The patient will maintain intact skin and avoid the development of pressure injuries within the current certification period Short term goal: The patient/caregiver will understand and adhere to pressure prevention interventions withi n 2 weeks. Pressure Prevention No Understand and follow medication therapy Description: Patient/Caregiver will verbalize understanding of purpose, side effects, and medication regimen in 4 weeks as evidenced by taking all medications as prescribed and no medication errors. Medications No Measure vital signs during every home health visit during episode of care Description: Home back end web developer to measure vital signs during every home health visit during episode of care. Monitor patient's vital signs every home health visit No Verbalize signs of infection Description: Patient/caregiver will demonstrate knowledge of infection prevention strategies by verbalizing signs and symptoms of infection. Infection Prevention No Demonstrate fall and safety precautions Description: Patient/caregiver maintains safe home environment as evidenced by remaining free from falls, injury due to falls, demonstrating safety precautions, and identifying strategies to reduce falls by 11/15/2024 Fall Precautions/Safety Concerns No Report that pain has been reduced or controlled Description: Patient/caregiver/family will verbalize satisfaction with the patients level of pain and symptom control. Pain No Interventions Intervention Associated Problem/Goal Status Variance Visit Notes PICC Line Description: PICC Line with 2 [...] be done in PICC line arm. Problem:IV Therapy-Management, Education, and Maintenance Scheduled IV Management and Education Description: Instruct patient/caregiver [...] any signs and symptoms of infection. Problem:IV Therapy-Management, Education, and Maintenance Scheduled Instruct on Pressure Prevention Description: Instruct patient/caregiver [...] Problem:Pressure Prevention Goal:Prevent development of pressure injuries Scheduled Instruct on Medication Management Description: Assess patient/caregiver ability to demonstrate management of medications, steps to obtain new/refills of medications and identification of new or changed medications. Assess patient/caregiver ability to verbalize accurate dose/route/frequency/reason for medication, how to evaluate effectiveness of medication, ongoing lab work needed to ensure therapeutic dosing, drug/food interactions, side effects/adverse reactions, contraindications for medications and known drug allergies. Evaluate the effectiveness of current treatment regimen and notify the appropriate healthcare provider for the need for changes in the plan of care. Problem:Medications Goal:Understand and follow medication therapy Scheduled Instruct on High Risk Medications Description: Instruct patient/caregiver on oral or injectable high-risk medications, including: anticonvulsant, antiretroviral, anticoagulant, antibiotics, chemotherapeutic, hypoglycemic including insulin, immunosuppressant, antipsychotic, and opioids. Problem:Medications Goal:Understand and follow medication therapy Scheduled Monitor Vital Signs Description: Monitor blood pressure, pulse, oxygen saturation, respirations Problem:Monitor patient's vital signs every home health visit Goal:Measure vital signs during every home health visit during episode of care Scheduled Educate Patient on Infection Prevention Description: Instruct patient on signs and symptoms of infection IE: fever, odor, change in color, increased amount of drainage, purulent drainage, warmth. Problem:Infection Prevention Goal:Verbalize signs of infection Scheduled Educate Family on Infection Prevention Description: Instructed family on signs and symptoms of infection IE: fever, odor, change in color, increased amount of drainage, purulent drainage, warmth. Problem:Infection Prevention Goal:Verbalize signs of infection Scheduled High Fall Risk Precautions Description: Instruct patient/caregiver [...] Precautions/Safety Concerns Goal:Demonstrate fall and safety precautions Scheduled Instruct on pain management techniques Description: Instruct in pharmacologic and nonpharmacologic pain management techniques. Problem:Pain Goal:Report that pain has been reduced or controlled Scheduled documented in this encounter Care Teams Grounds Crew Supervisor Relationship Specialty Start Date End Date Willi Wyatt DO [address] [facility] [address] [place], [place] [id number] PCP - General Internal Medicine 10/06/24 Jose M West MD [address] IM INFECTIOUS DISEASE, [address] [place] [address] PCP - Home Infusion Attending Infectious Diseases 10/19/24 Sangeeta Wang LCSW [address] [facility] [place] [place] Mailstop [phone] [place] [address] [facility] Outpatient Bowling Ball Assembler 10/17/24 Vishal Marie, [facility] Pharmacist Pharmacy 10/18/24 documented as of this encounter
--- OUTSIDE RECORDS SUMMARY | 2024-10-25 20:44 | XMS_ITS | Encounter Summary ---
Author Organization [facility] Healthcare Address [address] [place] [address] Care Team Providers Care Supervisor Edging Name Role Phone Willi Wyatt DO Primary Care Provider [phone] Sangeeta WangW Unavailable [phone] Vishal Marie [facility] Unavailable Unavail able Jose M West MD Unavailable [phone] Reason for Visit * Auth/Cert (Routine) Specialty Diagnoses / Procedures Referred By Macrina t Referred To Contact Referral ID Status Reason Start Date Expiration Date Visits Re quested Visits Authorized [id number] 1 1 Encounter Details Date Type Department Care Team (Late st Contact Info) Description 10/25/2024 1:30 PM CDT Home Care Visit [facility] [address] [address] [address] [place] [address] Casa Warren RN SN HOME VISIT Social History Tobacco Use Types Packs/Day Years [...] materials from doctor or pharmacy Sometimes 10/15/2024 [facility] Utilities Answer Date Recorded In [...] often do you attend chur ch or druze services? More than 4 times per year 10/17/2024 Do you belong to any clubs o r organizations such as mormon groups, unions, fraternal or athletic groups, or [...] any time in the past 12 m [facility], were you homeless or living in a custodial (including now)? No 10/17/2024 Personal Safety Answer [...] CDT Inhaled Oxygen Concentration - - Weight - - Height - - Body Mass Index - - documented in this encounter Miscellaneous Notes * Home Health Visit Narrative - Casa Warren RN - 10/25/2024 1:34 PM CDT Assessed patient. Obtained labs. Educated on hydration and s/s of infection. Will obtain labs at next visit. Performed picc line care. Went over medications with patient. Patient has follow up with Dr. Alcala. documented in this encounter Plan of Treatment [...] support and son is staying with him, [facility] confirmed to be involved. documented as of this encounter Visit Diagnoses Not on filedocumented in this encounter Additional Health Concerns Active Problems Noted Date Diagnosed Date Initial Follow-Up Appointment 10/17/2024 Problems In Home Environment 10/17/2024 documented as of this encounter Home Health Visit - Care Plan Visit Details Visit Type -SN Home Visit Discipline -Fpc Problems Problem Description Start Date Status Goals Interve ntions IV Therapy-Manageme nt, Education, and Maintenance Disciplines: Fpc IV Management, education, and maintenance for home IV therapy. 10/15/2024 Active - 2 problem interventions scheduled/documen erik in this visit Pressure Prevention Disciplines: Skilled Disciplines Pressure Prevention 10/15/2024 Active 1 goal linked to scheduled/documen erik intervention 1 goal intervention scheduled/documen erik in this visit Medications Disciplines: Fpc Management of home medications 10/15/2024 Active 1 goal linked to scheduled/documen erik intervention 2 goal interventions scheduled/documen erik in this visit Monitor patient's vital signs every home health visit Disciplines: Skilled Disciplines, SN, PT, OT, TECHNOLOGY DIRECTOR, SHIFT LEADER Monitor patient's vital signs every home health visit. 10/15/2024 Active 1 goal linked to scheduled/documen erik intervention 1 goal intervention scheduled/documen erik in this visit Infection Prevention Disciplines: Skilled Disciplines Infection Prevention 10/15/2024 Active 1 goal linked to scheduled/documen eirk intervention 2 goal interventions scheduled/documen erik in [...] Notes Prevent development of pressure injuries Description: terminal system operator goal: The patient will maintain intact skin [...] visit during episode of care Description: Home broadcast maintenance technician to measure vital signs during every home [...] line arm. Problem:IV Therapy-Management, Education, and Maintenance Completed Dressing changed per [facility] protocol and per MD order. IV Management and Education Description: Instruct patient/caregiver [...] of infection. Problem:IV Therapy-Management, Education, and Maintenance Completed Caregiver is properly administering medication, normal saline and heparin. Caregiver is knowledged on disconnecting iv medication and disposing. Instruct on Pressure Prevention Description: Instruct patient/caregiver [...] of pressure injuries Completed Instructed patient/caregiver on inspecting the skin regularly for signs of impaired skin integrity, repositioning the patient on an individualized schedule according to the patient's tissue tolerance, skin condition, mobility, medical condition, and sanju tment goals. Avoid vigorous massage and emphasize the importance of increasing activity and mobility. Avoid using donut-shaped devices and foam cutouts for pressure redistribution. Determine if patient is using or needs a pressure reduction surface. Instructed patient/caregiver on using moisture barriers and absorbent pads/briefs as needed, avoiding prolonged skin contact with wet materials, and cleaning and drying skin thoroughly after incontinence episodes. If patient is malnourished instructed pa tient/caregiver on physician ordered diet, increased fluid intake if not contraindicated, and a list of possible protein sources to promote skin integrity. Instruct on Medication Management Description: Assess patient/caregiver ability to demonstrate management of medications, steps to obtain new/refills of medications and identification of new or changed medications. Assess patient/caregiver ability to verbalize accurate dose/route/frequency/monique son for medication, how to evaluate effectiveness of medication, ongoing lab work needed to ensure therapeutic dosing, drug/food interactions, side effects/adverse reactions, contraindications for medications and known drug allergies. Evaluate the effectiveness of current treatment regimen and notify the appropriate healthcare provider for the need for changes in the plan of care. Problem:Medications Goal:Understand and follow medication therapy Completed Caregiver is managing medications and no further education need. Caregiver verbalized dose/frequency/reason for medication Instruct on High Risk Medications Description: Instruct patient/caregiver on oral or injectable high-risk medications, including: anticonvulsant, antiretroviral, anticoagulant, antibiotics, chemotherapeutic, hypoglycemic including insulin, immunosuppressant, antipsychotic, and opioids. Problem:Medications Goal:Understand and follow medication therapy Completed Patient stated understanding of steps to obtain new/refills and stated accurate dose/route/frequency/ reason for medicactions etc. No furthe education needed. Monitor Vital Signs Description: Monitor blood pressure, [...] fall and safety precautions Completed Instructed patient/caregiver to use proper lighting in all areas, stand/sit up slowly, use appropriate footwear when walking, use proper assistive devices, keep pathways clear of cords and clutter to prevent falls, what to do in the event of a fall and t o report any falls to the home health agency. Instruct on pain management techniques Description: Instruct in pharmacologic and nonpharmacologic pain management techniques. Problem:Pain Goal:Report that pain has been reduced or controlled Completed documented in this encounter Care Teams Supervisor Edging Relationship Specialty Start Date End Date Willi Wyatt DO [address] [facility] [address] [place], [place] [id number] PCP - General Internal Medicine 10/06/24 Jose M West MD [address] IM INFECTIOUS DISEASE, [facility] [address] [place] [address] PCP - Home Infusion Attending Infectious Diseases 10/19/24 Sangeeta Wang LCSW [address] [facility] [place] [place] Mailstop [phone] [place] [address] [facility] Outpatient Race Car Mechanic 10/17/24 Vishal Marie [facility] Pharmacist Pharmacy 10/18/24 documented as of this encounter
--- OUTSIDE RECORDS SUMMARY | 2024-10-25 20:44 | XMS_ITS | Encounter Summary ---
Author Organization [facility] Healthcare Address [address] [place] [address] Care Team Providers Care Manager [id number] Name Role Phone Willi Wyatt Primary Care Provider [phone] Sangeeta Wang [facility] Unavailable [phone] Vishal Marie [facility] Unavailable Unavail able Jose M West MD Unavailable [phone] Encounter Details Date Type Department Care Team (Late st Contact Info) Description 10/25/2024 1:00 PM CDT Hospital Encounter [address] [address] Social History Tobacco Use Types Packs/Day [...] materials from doctor or pharmacy Sometimes 10/15/2024 [facility] Utilities Answer Date Recorded In the past 12 months has th e [employer], gas, oil, or water company threatened to [...] often do you attend chur ch or buddhism services? More than 4 times per year [...] any time in the past 12 m [facility], were you homeless or living in a retirement (including now)? No 10/17/2024 Personal Safety Answer [...] needs Care Plan Problems In Home Environment Sangeeta Martin LCSW Note: Pt needing more support and son is staying with him, [facility] confirmed to be involved. documented as of this encounter Procedures Procedure Name Priority Date/Time Associated Diagnosis Comments EGFR STAT 10/25/2024 1:00 PM CDT DIFFERENTIAL AUTO STAT 10/25/2024 1:0 0 PM CDT CRITICAL RESULT CALLBACK CHEMISTRY STAT 10/25/2024 1:00 PM CDT CBC WITH AUTO DIFFERENTIAL STAT 10/25/2024 1:00 PM CDT ERYTHROCYTE SEDIMENTATION RATE STAT 10/25/2024 1:00 PM CDT CRP (ACUTE PHASE) STAT 10/25/2024 1:0 0 PM CDT COMPREHENSIVE METABOLIC PANEL STAT 10/25/2024 1:00 PM CDT documented in this encounter Results * eGFR (10/25/2024 1:00 PM CDT) [...] ORDERABLES Final Res ult Performing Organization Address City/[facility]/ZIP Co de Phone Number [facility] [place] [address] * Critical Result Callback Chemistry (10/25/2024 1:00 PM CDT) Date Notified [id number] Time Notified 1902 [facility] TestName Potassium Plas [facility] Called/Read Back Holly Boyisela [facility] Credentials RN [facility] Called By radha [facility] Blood 10/25/2024 1:00 PM CDT 10/25/2024 6:16 PM CDT Jose M West MD LAB BLOOD ORDERABLES Final Res ult Performing Organization Address City/[facility]/ZIP Co de Phone Number [facility] Department [place] [address] * Differential, auto (10/25/2024 1:00 PM CDT) Neutrophil abs 2.75 1.50 - 6.50 K/cumm Imm gran abs 0.01 0.00 - 0.10 K/cumm [facility] Lymphocyte abs 1.18 0.80 - 3.30 K/cumm [facility] Monocyte abs 0.47 0.20 - 0.80 K/cumm [facility] Eosinophil abs 0.17 0.00 - 0.50 K/cumm [facility] Basophil abs 0.06 0.00 - 0.10 K/cumm [facility] Neutrophil pct 59.3 % [facility] Comment: Interpretive Data Percent cell count reference ranges are not reported, since discordance with absolute values may lead to misinterpretation of CBC data. Current Interpretive Data was last revised on 2017. Imm gran pct 0.2 % [facility] Comment: Interpretive Data Percent cell count reference ranges are not reported, since discordance with absolute values may lead to misinterpretation of CBC data. Current Interpretive Data was last revised on 2017. Lymphocyte pct 25.4 % [facility] Comment: Interpretive Data Percent cell count reference ranges are not reported, since discordance with absolute values may lead to misinterpretation of CBC data. Current Interpretive Data was last revised on 2017. Monocyte pct 10.1 % [facility] Comment: Interpretive Data Percent cell count reference ranges are not reported, since discordance with absolute values may lead to misinterpretation of CBC data. Current Interpretive Data was last revised on 2017. Eosinophil pct 3.7 % [facility] Comment: Interpretive Data Percent cell count reference ranges are not reported, since discordance with absolute values may lead to misinterpretation of CBC data. Current Interpretive Data was last revised on 2017. Basophil pct 1.3 % [facility] Comment: Interpretive Data Percent cell count reference ranges are not reported, since discordance with absolute values may lead to misinterpretation of CBC data. Current Interpretive Data was last revised on 2017. Blood 10/25/2024 1:00 PM CDT 10/25/2024 6:13 PM CDT us Jose M West MD LAB BLOOD ORDERABLES Final Res ult [facility] Department [place] [address] * (ABNORMAL) CRP (acute phase) (10/25/2024 1:00 PM CDT) CRP 18.7(H) <=10.0 mg/L Blood 10/25/2024 1:00 PM CDT 10/25/2024 6:13 PM CDT Jose M West MD LAB BLOOD ORDERABLES Final Res ult Performing Organization Address [facility] Co de Phone Number [facility] [place] [address] * (ABNORMAL) Erythrocyte sedimentation rate (10/25/2024 1:00 PM CDT) [facility] Erythrocyte sedimentation rate 93(H) 1 - 20 mm/hr Blood 10/25/2024 1:00 PM CDT 10/25/2024 6:13 PM CDT Jose M West MD LAB BLOOD ORDERABLES Final Res ult Performing Organization Address [facility] de Phone Number [facility] Department [place] [address] * (ABNORMAL) CBC with auto differential (10/25/2024 1:00 PM CDT) [facility] WBC 4.64 3.80 - 9.90 K/cumm Hgb 9.2(L) 13.0 - 17.5 g/dL [facility] Hct 31.0(L) 38.9 - 50.3 % [facility] Plt 449(H) 150 - 400 K/cumm [facility] MPV 8.8(L) 9.1 - 12.3 fL [facility] RBC 3.38(L) 4.30 - 5.80 M/cumm [facility] MCV 91.7 81.3 - 96.4 fL [facility] MCH 27.2 27.1 - 33.3 pg [facility] MCHC 29.7(L) 32.3 - 35.7 g/dL [facility] RDW CV 24.3(H) 11.1 - 14.9 % [facility] RDW SD 84.3(H) 35.7 - 48.1 fL [facility] NRBC abs 0.00 0.00 - 0.01 K/cumm [facility] Blood 10/25/2024 1:00 PM CDT 10/25/2024 6:13 PM CDT us Jose M West MD LAB BLOOD ORDERABLES Final Res ult [facility] Department [place] [address] * (ABNORMAL) Comprehensive metabolic panel (10/25/2024 1:00 PM CDT) Pathologist [facility] Sodium 139 135 - 145 mmol/L Potassium, pl 2.4(C) 3.3 - 4.9 mmol/L [facility] Chloride 100 97 - 110 mmol/L [facility] CO2 29 22 - 32 mmol/L [facility] Anion gap 10 2 - 15 mmol/L [facility] BUN 8 6 - 25 mg/dL [facility] Creatinine 0.89 0.80 - 1.30 mg/dL [facility] Glucose 145 70 - 199 mg/dL [facility] Comment: Interpretive Data Fasting glucose >/= [...] 2022. Calcium 8.2(L) 8.5 - 10.3 mg/dL [facility] Bilirubin, total 0.2 0.1 - 1.2 mg/dL [facility] Protein, pl 6.7 6.5 - 8.5 g/dL [facility] Albumin 2.8(L) 3.5 - 5.0 g/dL [facility] Alk phos 103 40 - 130 Units/L [facility] ALT 8 7 - 55 Units/L [facility] AST 25 10 - 50 Units/L [facility] Blood 10/25/2024 1:00 PM CDT 10/25/2024 6:13 PM CDT Jose M West MD LAB BLOOD ORDERABLES Final Res ult [facility] Department [place] [address] documented in this encounter Visit Diagnoses Not on filedocumented in this encounter Additional Health Concerns Active Problems Noted Date Diagnosed Date Initial Follow-Up Appointment 10/17/2024 Problems In Home Environment 10/17/2024 documented as of this encounter Care Teams Manager Business Relationship Specialty Start Date End Date Willi Wyatt DO [address] [place], [place] [id number] PCP - General Internal Medicine 10/06/24 Jose M West MD [address] DIV IM INFECTIOUS DISEASE, [address] [place] [address] PCP - Home Infusion Attending Infectious Diseases 10/19/24 Sangeeta Wang, RON [address] [facility] Mailstop [phone] [place] [address] [facility] Outpatient Rn Office 10/17/24 Vishal Marie, [facility] Pharmacist Pharmacy 10/18/24 documented as of this encounter
--- OUTSIDE RECORDS SUMMARY | 2024-10-25 20:44 | XMS_ITS | Encounter Summary ---
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 Role Phone Unavailable Primary Care Provider Unavailabl e Encounter Details Date Type Department Care Team (Late st Contact Info) Description 08/11/2024 Lab Requisition [facility] - Pathology Lab [address] [place] [address] Geronimo Franks MD [address] [place] [id number] Localized enlarged lymph nodes Social History Tobacco Use Types Packs/Day Years Used Date Smoking Tobacco: Never Assessed Sex and Gender Information Value Date Recorded Sex Assigned at Not on file 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 Gender Identity Not on file Sexual Orientation [...] PM CDT) Case Report Flow Cytometry Case: [id number] Authorizing Provider: Geronimo Franks Collected: 08/10/2024 03:12 PM MD Josse Ordering Location: [facility] - Received: 08/11/2024 02:22 PM Pathology Lab Pathologist: Montse Castrejon MD Specimen: Lymph Node 08/11/2024 4:15 PM CDT [facility] Final Diagnosis Lymph node, left axilla, flow cytometric immunophenotypic analysis: - No evidence of non-Hodgkin lymphoma - See interpretation 08/11/2024 4:15 PM [facility] at 1615 CDT Flow Cytometry Interpretation Viability: 86% B-cells: polytypic, kappa:lambda ratio 2.3:1 T-cells: no immunophenotypic aberrancy detected CD4:CD8 ratio 4.1:1 A cytospin prepared from the flow cytometry specimen has been reviewed for quality improvement analyst purposes. 08/11/2024 4:15 PM [facility] Flow Cytometry Results Differential Result Comment Flow Cell Count /uL 6,300 Total Viability % 86.0 Lymphocytes % 92 Dim CD45 Region % 7 Monocytes % 0 Granulocytes % 1 08/11/2024 4:15 PM [facility] Reason for test Localized enlarged lymph nodes 785.6 08/11/2024 4:15 PM [facility] Client Specimen ID # [id number] 08/11/2024 4:15 PM [facility] Number of markers 17 were performed. A-2 Flow CD10 A-4 Flow CD20 A-5 Flow CD23 A-10 Flow CD2 A-11 Flow CD3 A-12 Flow CD4 A-16 Flow CD1a A-3 Flow CD19 A-6 Flow CD34 A-7 Flow CD45 A-13 Flow CD5 A-14 Flow CD7 A-15 Flow CD8 A-17 Flow CD30 A-8 Green Level+CD19+ A-9 Lambda+CD19+ 08/11/2024 4:15 PM [facility] Pathologist Location at [facility] 08/11/2024 4:15 PM [facility] Disclaimer Test performed at [facility], [address] [place] [address], [address]. *The established laboratory minimum viability is 70%. [...] complexity clinical testing. 08/11/2024 4:15 PM CDT [facility] Embedded Images 4:15 PM CDT [facility] Pathology/Cytolo gy ENTIRE LYMPH NODE / Unknown 08/10/2024 3:12 PM CDT 08/11/2024 2:22 PM CDT Geronimo Franks MD LAB - PATHOLOGY/CYT OLOGY ORDERABLES Final Result Performing Organization Address City/State/[facility] Co de Phone Number [facility] [address] [phone] documented in this encounter Visit Diagnoses Diagnosis Localized enlarged lymph nodes Enlargement of lymph nodes documented in this encounter
--- OUTSIDE RECORDS SUMMARY | 2024-10-25 20:44 | XMS_ITS | Referral Summary ---
Author Organization [facility] Address [address] [place] [address] Care Team Providers Care Senior Accountant Analyst Name Role Phone Willi Wyatt Primary Care Provider [phone] Sangeeta Wang EXPLOSIVES MIXER OPERATOR Unavailable Vishal Marie [facility] Unavailable Unavail able Jose M West MD Unavailable [phone] Encounters Date Type Department Care Team Description 10/25/2024 Documentation [facility] Infectious Diseases [address] [place] [id number] Bar Porter MD 10/25/2024 Home Care Visit [address] [place] [address] Sangeeta Brunson RN SN TRIAGE ENCOUNTER 10/25/2024 1:00 PM CDT Hospital Encounter [facility] [address] [place] [address] 10/25/2024 1:30 PM CDT Home Care Visit [address] [place] [address] Casa Warren RN SN HOME VISIT 10/24/2024 SHOP/CHAP Subsequent Outreach [facility] OP CASE MANAGEMENT [address] [place] [address] Sangeeta Wang LCSW 10/20/2024 Documentation [facility] Infectious Diseases [address] [place] [address] [place] [phone] JackyNhan holguin Jr., RN 10/18/2024 10:00 AM CDT - 10/18/2024 11:59 PM CDT Hospital Encounter [facility] [address] [place] [address] Discharge Disposition: Discharge to home or self care 10/18/2024 Home Infusion [facility] Home Infusion Therapy [address] [place] [address] Bernardino Cooper, [facility] 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) (Primary Dx) 10/18/2024 8:00 AM CDT Home Care Visit [address] [place] [address] Casa Warren RN SN HOME VISIT 10/17/2024 SHOP/CHAP Initial Outreach [facility] OP CASE MANAGEMENT [address] [place] [address] Sangeeta Wang, EXPLOSIVES MIXER OPERATOR 10/17/2024 SHOP/CHAP Initial Eligibility Review [facility] OP CASE MANAGEMENT [address] [place] [address] Sangeeta Wang, EXPLOSIVES MIXER OPERATOR 10/16/2024 Home Infusion [facility] Home Infusion Therapy [address] [place] [address] Celeste Marie RN 10/15/2024 Plan of Care Documentation [address] [place] [address] 10/15/2024 1:30 PM CDT Home Care Visit [address] [place] [address] Cecilia Tian SN OASIS START OF CARE 10/14/2024 Orders Only [facility] Home Care Services [address] [facility] [address] [place] [address] Vanita Hernandez, [facility] 10/06/2024 10:59 AM CDT - 10/14/2024 3:50 PM CDT Hospital Encounter [address] [address] Pan Leiva MD McHale, Matthew Justin, DO Chan, Philip, MD Pallotta, Deshawn Harrison MD Diagnosis unknown (Primary Dx); Closed nondisplaced fracture of first cervical vertebra, unspecified fracture morphology, initial encounter (HCC); Occlusion of left vertebral artery; Paresthesia of bilateral legs; Osteomyelitis of cervical spine (HCC) Discharge Disposition: Discharge to home, home health skilled care 10/13/2024 Ophth Exam Ophthalmology Gina Pendleton MD 10/11/2024 Documentation [facility] Infectious Diseases [address] [facility] [address] [place] [address] Bianca Ceja NP 10/09/2024 Ophth Exam [facility] Ophthalmology [address] [facility] 1st [place] [address] Imani Ventura MD 10/07/2024 1:49 PM CDT Anesthesia Event [facility] Operating Room [address] [place] [address] Alistair Stevenson MD Dippolito, Jenny Irene, NP 10/07/2024 1:30 PM CDT - 10/07/2024 7:05 PM CDT Surgery [facility] Operating Room [address] [place] [address] Deshawn Cornelius MD CERVICAL FUSION - POSTERIOR, OCCIPUT-C5 C2-C3, C4-C5 Laminectomy from Last 3 Months Allergies Active Allergy Reactions Criticality Noted Date [...] a day 3 mL 11/13 Active multivit zhrkjrme-clzk-JA-calc ium (THERA-M) 9 mg iron-400 mcg tabletIndications:Vit [...] from refrigerator 3-4 hours before administratio n. 95761 mL 11/21 Active sodium chloride 0.9% flush syringeIndications:Os teomyelitis of vertebra of cervical region (HCC) Infuse 10 mL IV as needed for line care 91289 mL 2024 Active heparin 10 unit/mL syringe flush syringeIndications:Ma intain Patency of Indwelling Vascular Catheter Administer 5 mL (50 Units total) into IV catheter as needed (catheter maintenance) 82220 mL 10/17 Active bisacodyL (DULCOLAX) 10 mg [...] a day 3 mL 10/14 Discontinued multivit djscvfqv-dyuh-UW-calc ium (THERA-M) 9 mg iron-400 mcg tabletIndications:Vit [...] complication on 10/[address] John in [facility] --Since surgery, he reports his vision [...] 2 weeks after chiropractic adjustment admitted to [facility] and transferred to [facility] on 10/06/24 Found to have extensive destructive [...] by ID to place PICC line for fpc IV antibiotics given 10/08-10/09 blood cultures remain [...] 2 weeks after chiropractic adjustment admitted to [facility] and transferred to [facility] on 10/06/24 Found to have extensive destructive process of the skull base (dens/clivus/C1-C2) with soft tissue around prevertebral/paraspinal tissues with small retropharyngeal space fluid collection and extensive paraspinal muscle myositis through he cervical spine, with pachymeningeal enhancement, and bilateral vertebral artery occlusion. / bcx from 10/07 positive for MSSA. TTE [...] by ID to place PICC line for fpc IV antibiotics given 10/07-10/09 blood cultures remain [...] 2 weeks after chiropractic adjustment admitted to [facility] and transferred to [facility] on 10/06/24 Found to have extensive destructive process of the skull base (dens/clivus/C1-C2) with soft tissue around prevertebral/paraspinal tissues with small retropharyngeal space fluid collection and extensive paraspinal muscle myositis through he cervical spine, with pachymeningeal enhancement, and bilateral vertebral artery occlusion. / bcx from 10/07 positive for MSSA. TTE [...] 2 weeks after chiropractic adjustment admitted to [facility] and transferred to [facility] on 10/06/24 Found to have extensive destructive [...] less consistent with this. Recommendations: -Agree with RIVET FLUNKY dosed cefepime at 2g IV q8h, metronidazole [...] rec for rehab, OT rec for home --[facility] for 21 hours/day --Pt to follow up with Dr Cornelius outpatient Immunizations Immunization Administration Dates Next Due Tdap [...] materials from doctor or pharmacy Sometimes 10/15/2024 [facility] Utilities Answer Date Recorded In the past 12 months has th e [employer], gas, oil, or water [employer] threatened to shut off services in your [...] often do you attend chur ch or oriental orthodox services? More than 4 times per year 10/17/2024 Do you belong to any clubs o r organizations such as worship groups, unions, fraternal or athletic groups, or [...] any time in the past 12 m onths, were you homeless or living in a mcc (including now)? No 10/17/2024 Personal Safety Answer [...] 10/15/2024 2:22 PM CDT Plan of Treatment Not on file Goals Goal Patient Goal Type Associated Problems Recent Progress Patient-Stated? Author Patient will have kept initial appointment and will show signs of improvement to baseline Care Plan Initial Follow-Up Appointment No Sangeeta Wang LCSW Level of assistance will meet patient's needs Care Plan Problems In Home Environment No Sangeeat Wang LCSW Note: Pt needing more support and son is staying with him, [facility] confirmed to be involved. Medical Devices Implanted Type Area Tannery Worker Device Identifier Shelf Expiration Date Model / Serial / Lot Invictus Oct 3.5x14 Fa Screw Implanted:Qty: 1 on 10/07/2024 by Deshawn Cornelius MD at [facility] Screw N/A: Spine Cervical [employer] 15982-62- 14 / [id number] 14 / [place] Spine Allograft Gel Graft 5cc Bone Demineralized Bone Matrix [id number] - [id number] Implanted:Qty: 1 on 10/07/2024 by Sarah Milligan MD at [facility] N/A: Spine Cervical Ever Spine [id number] 01/15/2027 [id number] / / [id number] Invictus Oct Plate 48mm Implanted:Qty: 1 on 10/07/2024 by Deshawn Cornelius MD at [facility] N/A: Spine Cervical ATEC Spine / / Description:Approved item mi sc code used Invictus Oct Occipital Screw 4.5 X 6 Implanted:Qty: 1 on 10/07/2024 by Deshawn Cornelius MD at [facility] N/A: Spine Cervical [employer] 31556-65- 06 / / Invictus Oct Occipital Screw 4.5 X 8 Implanted:Qty: 1 on 10/07/2024 by Deshawn Cornelius MD at [facility] N/A: Spine Cervical [employer] [id number] 08 / / Invictus Oct Occipital Screw 4.5 X 10 Implanted:Qty: 1 on 10/07/2024 by Deshawn Cornelius MD at [facility] N/A: Spine Cervical [employer] 52381-87- 10 / / Description:Approved misc co de used Invictus Oct Occipital Screw 4.5 X 14 Implanted:Qty: 1 on 10/07/2024 by Deshawn Cornelius MD at [facility] N/A: Spine Cervical [employer] [id number]- 14 / / Description:Approved mis co de used Invictus Oct Occipital Screw 4.5 X 16 Implanted:Qty: 1 on 10/07/2024 by Deshawn Cornelius MD at [facility] N/A: Spine Cervical [employer] 36080-05- 16 / / Description:Approved [facility] co de used [employer] Graft Bone Magnetos 10cc 1-2mm Granules In Moldable Putty 703-038-Us - [id number] Implanted:Qty: 1 on 10/07/2024 by Sarah Milligan MD at [facility] N/A: Spine Cervical [employer] [id number] 02/22/2029 703-038-U S / / [id number] Medtronic Inc Infuse 20ga 2x1in Vial Absorbable Syringe Needle Medium Graft 5.6 [id number] - [id number] Implanted:Qty: 1 on 10/07/2024 by Deshawn Cornelius MD at [facility] N/A: Spine Cervical [employer] Inc [id number] / / Iinvictus Oct Set Screw Implanted:Qty: 9 on 10/07/2024 by Deshawn Cornelius MD at [facility] N/A: Spine Cervical [employer] [id number] / [id number] / Invictus Oct 3.5x16 Fa Screw Implanted:Qty: 5 on 10/07/2024 by Deshawn Cornelius MD at [facility] N/A: Spine Cervical [employer] 39628-03- 16 / 24035-11- 16 / Invictus Oct 3.5x22 Fa Screw Implanted:Qty: 1 on 10/07/2024 by Deshawn Cornelius MD at [facility] N/A: Spine Cervical [employer] 78128-92- / [id number]- / Description:Approved items m isc code used Invictus Oct Head To Head Connector 40mm Implanted:Qty: 1 on 10/07/2024 by Deshawn Cornelius MD at [facility] N/A: Spine Cervical [employer] 63188-28 / [id number] / 4.0 Ti Hinged Mono Implanted:Qty: 2 on 10/07/2024 by Deshawn Cornelius MD at [facility] N/A: Spine Cervical ATEC Spine 42445-92- 40 / / Occipital Tulip Implanted:Qty: 2 on 10/07/2024 by Deshawn Cornelius MD at [facility] N/A: Spine Cervical ATEC Spine / / Procedures Procedure Name Priority Date/Time [...] PM CDT VANCOMYCIN LEVEL TROUGH Timed 10/09/19 2:34 PM CDT XR SPINE CERVICAL 2 [...] 7:02 PM CDT POTASSIUM, WHOLE BLOOD STAT 5 7:02 PM CDT HISTOPLASMA ANTIBODY Routine 10/07/2024 [...] FLUOROSCOPY < 1 HOUR IP Routine 10/08/19 25 5:40 PM CDT MYCOLOGY (FUNGAL) CULTURE Routine 10/07/2024 4:52 PM CDT MYCOBACTERIOLOGY AFB CULTURE Routine 10/07/2024 4:52 PM CDT AEROBIC AND ANAEROBIC CULTURE AND GRAM STAIN Routine 10/07/2024 4:52 PM CDT POC BLOOD GAS AND CHEMISTRIES, ARTERIAL Routine 10/07/2024 4:48 PM CDT TISSUE AEROBIC AND ANAEROBIC CULTURE AND GRAM STAIN Routine 10/07/2024 3:57 PM CDT NH AN PROCEDURE PLACEHOLDER Routine 10/07/2024 3:38 PM CDT NH AN PROCEDURE PLACEHOLDER Routine 10/07/2024 3:37 PM CDT NH AN PROCEDURE PLACEHOLDER Routine 10/07/2024 3:36 PM CDT NH AN ELECTIVE ENDOTRACHEAL AIRWAY Routine 10/07/2024 3:36 [...] vertebral artery Osteomyelitis of cervical spine (HCC) BLOOD CULTURE Routine 10/07/2024 9:56 AM CDT [...] vertebral artery Osteomyelitis of cervical spine (HCC) NH CRITICAL CARE ILL/INJURED PATIENT INIT 30-74 MIN [...] Results * eGFR (10/25/2024 1:00 PM CDT) [facility] eGFR 87 >=60 mL/min/1. 73 m2 Comment: [...] LAB BLOOD ORDERABLES Final Res ult [facility] Department [place] [address] * Differential, auto (10/25/2024 1:00 PM CDT) Neutrophil abs 2.75 1.50 - 6.50 K/cumm Imm gran abs 0.01 0.00 - 0.10 K/cumm [facility] Lymphocyte abs 1.18 0.80 - 3.30 K/cumm [facility] Monocyte abs 0.47 0.20 - 0.80 K/cumm [facility] Eosinophil abs 0.17 0.00 - 0.50 K/cumm [facility] Basophil abs 0.06 0.00 - 0.10 K/cumm [facility] Neutrophil pct 59.3 % [facility] Comment: Interpretive Data Percent cell count reference ranges are not reported, since discordance with absolute values may lead to misinterpretation of CBC data. Current Interpretive Data was last revised on 2017. Imm gran pct 0.2 % [facility] Comment: Interpretive Data Percent cell count reference ranges are not reported, since discordance with absolute values may lead to misinterpretation of CBC data. Current Interpretive Data was last revised on 2017. Lymphocyte pct 25.4 % [facility] Comment: Interpretive Data Percent cell count reference ranges are not reported, since discordance with absolute values may lead to misinterpretation of CBC data. Current Interpretive Data was last revised on 2017. Monocyte pct 10.1 % [facility] Comment: Interpretive Data Percent cell count reference ranges are not reported, since discordance with absolute values may lead to misinterpretation of CBC data. Current Interpretive Data was last revised on 2017. Eosinophil pct 3.7 % [facility] Comment: Interpretive Data Percent cell count reference ranges are not reported, since discordance with absolute values may lead to misinterpretation of CBC data. Current Interpretive Data was last revised on 2017. Basophil pct 1.3 % [facility] Comment: Interpretive Data Percent cell count reference ranges are not reported, since discordance with absolute values may lead to misinterpretation of CBC data. Current Interpretive Data was last revised on 2017. Blood 10/25/2024 1:00 PM CDT 10/25/2024 6:13 PM CDT Jose M West MD LAB BLOOD ORDERABLES Final Res ult [facility] [place] [employer] [place] [address] * Critical Result Callback Chemistry (10/25/2024 1:00 PM CDT) Date Notified 20241025 Time Notified 1902 [facility] TestName Potassium Plas [facility] Called/Read Back Holly [facility] Credentials RN [facility] PANIAGUA Called By radha PANIAGUA Blood 10/25/2024 1:00 PM CDT 10/25/2024 6:16 PM CDT Jose M West MD LAB BLOOD ORDERABLES Final Res ult [facility] [place] [employer] [place] [address] * (ABNORMAL) CBC with auto differential (10/25/2024 1:00 PM CDT) WBC 4.64 3.80 - 9.90 K/cumm Hgb 9.2(L) 13.0 - 17.5 g/dL [facility] Hct 31.0(L) 38.9 - 50.3 % [facility] Plt 449(H) 150 - 400 K/cumm [facility] MPV 8.8(L) 9.1 - 12.3 fL [facility] RBC 3.38(L) 4.30 - 5.80 M/cumm [facility] MCV 91.7 81.3 - 96.4 fL [facility] MCH 27.2 27.1 - 33.3 pg [facility] MCHC 29.7(L) 32.3 - 35.7 g/dL [facility] RDW CV 24.3(H) 11.1 - 14.9 % [facility] RDW SD 84.3(H) 35.7 - 48.1 fL [facility] NRBC abs 0.00 0.00 - 0.01 K/cumm [facility] Blood 10/25/2024 1:00 PM CDT 10/25/2024 6:13 PM CDT us Jose M West MD LAB BLOOD ORDERABLES Final Res ult Performing Organization Address City/[facility]/ZIP Co de Phone Number [facility] Department [place] [address] * (ABNORMAL) Erythrocyte sedimentation rate (10/25/2024 1:00 PM CDT) Erythrocyte sedimentation rate 93(H) 1 - 20 mm/hr Blood 10/25/2024 1:00 PM CDT 10/25/2024 6:13 PM CDT Jose M West MD LAB BLOOD ORDERABLES Final Res ult [facility] Department [place] [address] * (ABNORMAL) CRP (acute phase) (10/25/2024 1:00 PM CDT) Pathologist [facility] CRP 18.7(H) <=10.0 mg/L Blood 10/25/2024 1:00 PM CDT 10/25/2024 6:13 PM CDT us Jose M West MD LAB BLOOD ORDERABLES Final Res ult [facility] Department [place] [address] * (ABNORMAL) Comprehensive metabolic panel (10/25/2024 1:00 PM CDT) Pathologist [facility] Sodium 139 135 - 145 mmol/L Potassium, pl 2.4(C) 3.3 - 4.9 mmol/L [facility] Chloride 100 97 - 110 mmol/L [facility] CO2 29 22 - 32 mmol/L [facility] Anion gap 10 2 - 15 mmol/L [facility] BUN 8 6 - 25 mg/dL [facility] Creatinine 0.89 0.80 - 1.30 mg/dL [facility] Glucose 145 70 - 199 mg/dL [facility] Comment: Interpretive Data Fasting glucose >/= [...] Calcium 8.2(L) 8.5 - 10.3 mg/dL [facility] Bilirubin, total 0.2 0.1 - 1.2 mg/dL [facility] Protein, pl 6.7 6.5 - 8.5 g/dL [facility] Albumin 2.8(L) 3.5 - 5.0 g/dL [facility] Alk phos 103 40 - 130 Units/L [facility] ALT 8 7 - 55 Units/L [facility] AST 25 10 - 50 Units/L [facility] Blood 10/25/2024 1:00 PM CDT 10/25/2024 6:13 PM CDT Jose M West MD LAB BLOOD ORDERABLES Final Res ult Performing Organization Address City/[facility]/ZIP Co de Phone Number [facility] Department [place] [address] * eGFR (10/18/2024 10:00 AM CDT) eGFR [...] 0 AM CDT 10/18/2024 2:08 PM CDT Jose M West MD LAB BLOOD ORDERABLES Final Res ult [facility] Department [place] [address] * (ABNORMAL) Differential, auto (10/18/2024 10:00 AM CDT) Neutrophil abs 6.84(H) 1.50 - 6.50 K/cumm Imm gran abs 0.04 0.00 - 0.10 K/cumm [facility] Lymphocyte abs 2.07 0.80 - 3.30 K/cumm [facility] Monocyte abs 0.79 0.20 - 0.80 K/cumm [facility] Eosinophil abs 0.10 0.00 - 0.50 K/cumm [facility] Basophil abs 0.07 0.00 - 0.10 K/cumm [facility] Neutrophil pct 69.0 % [facility] Comment: Interpretive Data Percent cell count reference ranges are not reported, since discordance with absolute values may lead to misinterpretation of CBC data. Current Interpretive Data was last revised on 2017. Imm gran pct 0.4 % [facility] Comment: Interpretive Data Percent cell count reference ranges are not reported, since discordance with absolute values may lead to misinterpretation of CBC data. Current Interpretive Data was last revised on 2017. Lymphocyte pct 20.9 % [facility] Comment: Interpretive Data Percent cell count reference ranges are not reported, since discordance with absolute values may lead to misinterpretation of CBC data. Current Interpretive Data was last revised on 2017. Monocyte pct 8.0 % [facility] Comment: Interpretive Data Percent cell count reference ranges are not reported, since discordance with absolute values may lead to misinterpretation of CBC data. Current Interpretive Data was last revised on 2017. Eosinophil pct 1.0 % [facility] Comment: Interpretive Data Percent cell count reference ranges are not reported, since discordance with absolute values may lead to misinterpretation of CBC data. Current Interpretive Data was last revised on 2017. Basophil pct 0.7 % [facility] Comment: Interpretive Data Percent cell count reference ranges are not reported, since discordance with absolute values may lead to misinterpretation of CBC data. Current Interpretive Data was last revised on 2017. Blood 10/18/2024 10:0 0 AM CDT 10/18/2024 1:56 PM CDT us Jose M West MD LAB BLOOD ORDERABLES Final Res ult [facility] Department [place] [address] * (ABNORMAL) CBC with auto differential (10/18/2024 10:00 AM CDT) [facility] WBC 9.91(H) 3.80 - 9.90 K/cumm Hgb 8.6(L) 13.0 - 17.5 g/dL [facility] Hct 27.5(L) 38.9 - 50.3 % [facility] Plt 701(H) 150 - 400 K/cumm [facility] MPV 8.8(L) 9.1 - 12.3 fL [facility] RBC 3.24(L) 4.30 - 5.80 M/cumm [facility] MCV 84.9 81.3 - 96.4 fL [facility] MCH 26.5(L) 27.1 - 33.3 pg [facility] MCHC 31.3(L) 32.3 - 35.7 g/dL [facility] RDW CV 24.7(H) 11.1 - 14.9 % [facility] RDW SD 72.7(H) 35.7 - 48.1 fL [facility] NRBC abs 0.00 0.00 - 0.01 K/cumm [facility] Blood 10/18/2024 10:0 0 AM CDT 10/18/2024 1:56 PM CDT us Jose M West MD LAB BLOOD ORDERABLES Final Res ult [facility] Department [place] [address] * (ABNORMAL) Comprehensive metabolic panel (10/18/2024 10:00 AM CDT) Sodium 137 135 - 145 mmol/L Potassium, pl 3.2(L) 3.3 - 4.9 mmol/L [facility] Chloride 97 97 - 110 mmol/L [facility] CO2 28 22 - 32 mmol/L [facility] Anion gap 12 2 - 15 mmol/L [facility] BUN 11 6 - 25 mg/dL [facility] Creatinine 0.95 0.80 - 1.30 mg/dL [facility] Glucose 70 70 - 199 mg/dL [facility] Comment: Interpretive Data Fasting glucose >/= [...] 2022. Calcium 8.5 8.5 - 10.3 mg/dL [facility] Bilirubin, total 0.3 0.1 - 1.2 mg/dL [facility] Protein, pl 7.0 6.5 - 8.5 g/dL [facility] Albumin 2.9(L) 3.5 - 5.0 g/dL [facility] Alk phos 91 40 - 130 Units/L [facility] ALT 10 7 - 55 Units/L [facility] AST 26 10 - 50 Units/L [facility] Blood 10/18/2024 10:0 0 AM CDT 10/18/2024 1:56 PM CDT us Jose M West MD LAB BLOOD ORDERABLES Final Res ult [facility] Department [place] [address] * eGFR (10/13/2024 8:57 PM CDT) Pathologist [facility] eGFR 90 >=60 mL/min/1. 73 m2 Comment: [...] data was last reviewed 2021. Blood 10/13/2024 8:5 7 PM CDT 10/13/2024 9:43 PM CDT us Vanessa Sam NP LAB BLOOD ORDERABLES Donita sinha Result [facility] Department [place] [address] * (ABNORMAL) CBC without differential (10/13/2024 8:57 PM CDT) WBC 13.11(H) 3.80 - 9.90 K/cumm Hgb 9.0(L) 13.0 - 17.5 g/dL [facility] Hct 28.9(L) 38.9 - 50.3 % [facility] Plt 741(H) 150 - 400 K/cumm [facility] MPV 8.3(L) 9.1 - 12.3 fL [facility] RBC 3.53(L) 4.30 - 5.80 M/cumm [facility] MCV 81.9 81.3 - 96.4 fL [facility] MCH 25.5(L) 27.1 - 33.3 pg [facility] MCHC 31.1(L) 32.3 - 35.7 g/dL [facility] RDW CV 23.1(H) 11.1 - 14.9 % [facility] RDW SD 66.6(H) 35.7 - 48.1 fL [facility] NRBC abs 0.00 0.00 - 0.01 K/cumm [facility] Blood 10/13/2024 8:57 PM CDT 10/13/2024 9:42 PM CDT us Jonathan Alston NP LAB BLOOD ORDERABLES Fi nal Result [facility] Department [place] [address] * (ABNORMAL) Phosphorus (10/13/2024 8:57 PM CDT) Pathologist [facility] Phosphorus, pl 2.1(L) 2.3 - 4.5 mg/dL Blood 10/13/2024 8:57 PM CDT 10/13/2024 9:43 PM CDT us Deshawn Cornelius MD LAB BLOOD ORDERABLES Final Result Performing Organization Address City/[facility]/ZIP Co de Phone Number [facility] Department [place] [address] * (ABNORMAL) Comprehensive metabolic panel (10/13/2024 8:57 PM CDT) [facility] Sodium 137 135 - 145 mmol/L Potassium, pl 3.8 3.3 - 4.9 mmol/L [facility] Chloride 99 97 - 110 mmol/L [facility] CO2 28 22 - 32 mmol/L [facility] Anion gap 10 2 - 15 mmol/L [facility] BUN 11 6 - 25 mg/dL [facility] Creatinine 0.81 0.80 - 1.30 mg/dL [facility] Glucose 102 70 - 199 mg/dL [facility] Comment: Interpretive Data Fasting glucose >/= [...] 2022. Calcium 8.3(L) 8.5 - 10.3 mg/dL [facility] Bilirubin, total 0.3 0.1 - 1.2 mg/dL [facility] Protein, pl 6.7 6.5 - 8.5 g/dL [facility] Albumin 2.7(L) 3.5 - 5.0 g/dL [facility] Alk phos 73 40 - 130 Units/L [facility] ALT 11 7 - 55 Units/L [facility] AST 21 10 - 50 Units/L [facility] Blood 10/13/2024 8:57 PM CDT 10/13/2024 9:43 PM CDT Vanessa Sam NP LAB BLOOD ORDERABLES Donita sinha Result [facility] Department [place] [address] * eGFR (10/12/2024 9:12 PM CDT) eGFR [...] NP LAB BLOOD ORDERABLES Donita bharath Result [facility] Department [place] [address] * (ABNORMAL) Differential, auto (10/12/2024 9:12 PM CDT) Neutrophil abs 6.14 1.50 - 6.50 K/cumm Imm gran abs 0.05 0.00 - 0.10 K/cumm [facility] Lymphocyte abs 2.32 0.80 - 3.30 K/cumm [facility] Monocyte abs 0.82(H) 0.20 - 0.80 K/cumm [facility] Eosinophil abs 0.38 0.00 - 0.50 K/cumm [facility] Basophil abs 0.06 0.00 - 0.10 K/cumm [facility] Neutrophil pct 62.9 % [facility] Comment: Interpretive Data Percent cell count reference ranges are not reported, since discordance with absolute values may lead to misinterpretation of CBC data. Current Interpretive Data was last revised on 2017. Imm gran pct 0.5 % [facility] Comment: Interpretive Data Percent cell count reference ranges are not reported, since discordance with absolute values may lead to misinterpretation of CBC data. Current Interpretive Data was last revised on 2017. Lymphocyte pct 23.7 % [facility] Comment: Interpretive Data Percent cell count reference ranges are not reported, since discordance with absolute values may lead to misinterpretation of CBC data. Current Interpretive Data was last revised on 2017. Monocyte pct 8.4 % [facility] Comment: Interpretive Data Percent cell count reference ranges are not reported, since discordance with absolute values may lead to misinterpretation of CBC data. Current Interpretive Data was last revised on 2017. Eosinophil pct 3.9 % [facility] Comment: Interpretive Data Percent cell count reference ranges are not reported, since discordance with absolute values may lead to misinterpretation of CBC data. Current Interpretive Data was last revised on 2017. Basophil pct 0.6 % [facility] Comment: Interpretive Data Percent cell count reference ranges are not reported, since discordance with absolute values may lead to misinterpretation of CBC data. Current Interpretive Data was last revised on 2017. Blood 10/12/2024 9:12 PM CDT 10/12/2024 11:48 PM CDT us Bianca Ceja CREATIVE COORDINATOR LAB BLOOD ORDERABLES Final Result [facility] Department [place] [address] * (ABNORMAL) CBC with auto differential (10/12/2024 9:12 PM CDT) WBC 9.66 3.80 - 9.90 K/cumm Hgb 8.7(L) 13.0 - 17.5 g/dL [facility] Hct 28.7(L) 38.9 - 50.3 % [facility] Plt 732(H) 150 - 400 K/cumm [facility] MPV 8.6(L) 9.1 - 12.3 fL [facility] RBC 3.45(L) 4.30 - 5.80 M/cumm [facility] MCV 83.2 81.3 - 96.4 fL [facility] MCH 25.2(L) 27.1 - 33.3 pg [facility] MCHC 30.3(L) 32.3 - 35.7 g/dL [facility] RDW CV 23.0(H) 11.1 - 14.9 % [facility] RDW SD 67.7(H) 35.7 - 48.1 fL [facility] NRBC abs 0.00 0.00 - 0.01 K/cumm [facility] Blood 10/12/2024 9:12 PM CDT 10/12/2024 11:48 PM CDT us Bianca Ceja CREATIVE COORDINATOR LAB BLOOD ORDERABLES Final Result Performing Organization Address City/[facility]/ZIP Co de Phone Number [facility] [employer] [place] [address] * (ABNORMAL) CBC without differential (10/12/2024 9:12 PM CDT) WBC 9.66 3.80 - 9.90 K/cumm Hgb 8.7(L) 13.0 - 17.5 g/dL [facility] Hct 28.7(L) 38.9 - 50.3 % [facility] Plt 732(H) 150 - 400 K/cumm [facility] MPV 8.6(L) 9.1 - 12.3 fL [facility] RBC 3.45(L) 4.30 - 5.80 M/cumm [facility] MCV 83.2 81.3 - 96.4 fL [facility] MCH 25.2(L) 27.1 - 33.3 pg [facility] MCHC 30.3(L) 32.3 - 35.7 g/dL [facility] RDW CV 23.0(H) 11.1 - 14.9 % [facility] RDW SD 67.7(H) 35.7 - 48.1 fL [facility] NRBC abs 0.00 0.00 - 0.01 K/cumm [facility] Blood 10/12/2024 9:12 PM CDT 10/12/2024 11:45 PM CDT us Jonathan Alston CREATIVE COORDINATOR LAB BLOOD ORDERABLES Fi nal Result Performing Organization Address City/[facility]/ZIP Co de Phone Number [facility] [place] [address] * Phosphorus (10/12/2024 9:12 PM CDT) [facility] Phosphorus, pl 2.3 2.3 - 4.5 mg/dL Blood 10/12/2024 9:12 PM CDT 10/12/2024 11:41 PM CDT Deshawn Cornelius MD LAB BLOOD ORDERABLES Final Result Performing Organization Address City/[facility] Co de Phone Number [facility] Department [place] [address] * Magnesium (10/12/2024 9:12 PM CDT) [facility] Magnesium 2.2 1.4 - 2.5 mg/dL Blood 10/12/2024 9:12 PM CDT 10/12/2024 11:41 PM CDT Deshawn Cornelius MD LAB BLOOD ORDERABLES Final Result Performing Organization Address [facility] de Phone Number [facility] Department [place] [address] * (ABNORMAL) Comprehensive metabolic panel (10/12/2024 9:12 PM CDT) [facility] Sodium 135 135 - 145 mmol/L Potassium, pl 3.4 3.3 - 4.9 mmol/L [facility] Chloride 99 97 - 110 mmol/L [facility] CO2 28 22 - 32 mmol/L [facility] Anion gap 8 2 - 15 mmol/L [facility] BUN 10 6 - 25 mg/dL [facility] Creatinine 0.82 0.80 - 1.30 mg/dL [facility] Glucose 75 70 - 199 mg/dL [facility] Comment: Interpretive Data Fasting glucose >/= [...] 2022. Calcium 8.3(L) 8.5 - 10.3 mg/dL [facility] Bilirubin, total 0.3 0.1 - 1.2 mg/dL [facility] Protein, pl 6.9 6.5 - 8.5 g/dL [facility] Albumin 2.7(L) 3.5 - 5.0 g/dL [facility] Alk phos 67 40 - 130 Units/L [facility] ALT 10 7 - 55 Units/L [facility] AST 22 10 - 50 Units/L [facility] Blood 10/12/2024 9:12 PM CDT 10/12/2024 11:41 PM CDT Vanessa Sam NP LAB BLOOD ORDERABLES Donita sinha Result [facility] Department [place] [address] * eGFR (10/11/2024 8:48 PM CDT) eGFR [...] CDT 10/11/2024 10:09 PM CDT Vanessa Sam CREATIVE COORDINATOR LAB BLOOD ORDERABLES Donita l Result Performing Organization Address City/[facility]/ZIP Co de Phone Number [facility] [employer] [place] [address] * (ABNORMAL) CBC without differential (10/11/2024 8:48 PM CDT) WBC 9.10 3.80 - 9.90 K/cumm Hgb 8.3(L) 13.0 - 17.5 g/dL [facility] Hct 27.0(L) 38.9 - 50.3 % [facility] Plt 662(H) 150 - 400 K/cumm [facility] MPV 8.7(L) 9.1 - 12.3 fL [facility] RBC 3.30(L) 4.30 - 5.80 M/cumm [facility] MCV 81.8 81.3 - 96.4 fL [facility] MCH 25.2(L) 27.1 - 33.3 pg [facility] MCHC 30.7(L) 32.3 - 35.7 g/dL [facility] RDW CV 23.0(H) 11.1 - 14.9 % [facility] RDW SD 66.7(H) 35.7 - 48.1 fL [facility] NRBC abs 0.00 0.00 - 0.01 K/cumm [facility] Blood 10/11/2024 8:48 PM CDT 10/11/2024 10:12 PM CDT Jonathan Alston CREATIVE COORDINATOR LAB BLOOD ORDERABLES Fi nal Result Performing Organization Address City/[facility]/ZIP Co de Phone Number [facility] [place] [address] * Phosphorus (10/11/2024 8:48 PM CDT) Pathologist [facility] Phosphorus, pl 2.4 2.3 - 4.5 mg/dL Blood 10/11/2024 8:48 PM CDT 10/11/2024 10:09 PM CDT Deshawn Cornelius MD LAB BLOOD ORDERABLES Final Result Performing Organization Address City/[facility] Co de Phone Number [facility] Department [place] [address] * Magnesium (10/11/2024 8:48 PM CDT) [facility] Magnesium 2.2 1.4 - 2.5 mg/dL Blood 10/11/2024 8:48 PM CDT 10/11/2024 10:09 PM CDT Deshawn Cornelius MD LAB BLOOD ORDERABLES Final Result Performing Organization Address [facility] de Phone Number [facility] Department [place] [address] * (ABNORMAL) Comprehensive metabolic panel (10/11/2024 8:48 PM CDT) [facility] Sodium 135 135 - 145 mmol/L Potassium, pl 3.4 3.3 - 4.9 mmol/L [facility] Chloride 99 97 - 110 mmol/L [facility] CO2 29 22 - 32 mmol/L [facility] Anion gap 7 2 - 15 mmol/L [facility] BUN 10 6 - 25 mg/dL [facility] Creatinine 0.76(L) 0.80 - 1.30 mg/dL [facility] Glucose 87 70 - 199 mg/dL [facility] Comment: Interpretive Data Fasting glucose >/= [...] 2022. Calcium 8.3(L) 8.5 - 10.3 mg/dL [facility] Bilirubin, total 0.3 0.1 - 1.2 mg/dL [facility] Protein, pl 6.8 6.5 - 8.5 g/dL [facility] Albumin 2.8(L) 3.5 - 5.0 g/dL [facility] Alk phos 64 40 - 130 Units/L [facility] ALT 10 7 - 55 Units/L [facility] AST 19 10 - 50 [facility] Blood 10/11/2024 8:48 PM CDT 10/11/2024 10:09 PM CDT Vanessa Sam NP LAB BLOOD ORDERABLES Donita sinha Result [facility] Department [place] [address] * XR Abdomen 1 View AP (10/11/2024 [...] signed by: Cata Hope M.D. Willow Layton CREATIVE COORDINATOR IMG XR PROCEDURES Final Result * eGFR [...] 2 PM CDT 10/10/2024 11:41 PM CDT us Vanessa Sam NP LAB BLOOD ORDERABLES Donita l Result [facility] Department [place] [address] * (ABNORMAL) CBC without differential (10/10/2024 10:32 PM CDT) WBC 10.23(H) 3.80 - 9.90 K/cumm Hgb 8.6(L) 13.0 - 17.5 g/dL [facility] Comment:Hemoglobin delta due to surgical procedure. Spoke to Juventino Amaya RN at 0025 - RV Hct 27.8(L) 38.9 - 50.3 % [facility] Plt 638(H) 150 - 400 K/cumm [facility] MPV 8.6(L) 9.1 - 12.3 fL [facility] RBC 3.42(L) 4.30 - 5.80 M/cumm [facility] MCV 81.3 81.3 - 96.4 fL [facility] MCH 25.1(L) 27.1 - 33.3 pg [facility] MCHC 30.9(L) 32.3 - 35.7 g/dL [facility] RDW CV 23.1(H) 11.1 - 14.9 % [facility] RDW SD 66.2(H) 35.7 - 48.1 fL [facility] NRBC abs 0.00 0.00 - 0.01 K/cumm [facility] Blood 10/10/2024 10:3 2 PM CDT 10/10/2024 11:53 PM CDT us Jonathan Alston NP LAB BLOOD ORDERABLES Ed ited Result - Final Performing Organization Address City/[facility]/ZIP Co de Phone Number [facility] Department [place] [address] * Phosphorus (10/10/2024 10:32 PM CDT) Pathologist [facility] Phosphorus, pl 2.4 2.3 - 4.5 mg/dL Blood 10/10/2024 10:3 2 PM CDT 10/10/2024 11:41 PM CDT us Deshawn Cornelius MD LAB BLOOD ORDERABLES Final Result Performing Organization Address City/[facility]/ZIP Co de Phone Number [facility] Department [place] [address] * Magnesium (10/10/2024 10:32 PM CDT) Magnesium 2.1 1.4 - 2.5 mg/dL Blood 10/10/2024 10:3 2 PM CDT 10/10/2024 11:41 PM CDT Deshawn Cornelius MD LAB BLOOD ORDERABLES Final Result [facility] Department [place] [address] * (ABNORMAL) Comprehensive metabolic panel (10/10/2024 10:32 PM CDT) Pathologist [facility] Sodium 133(L) 135 - 145 mmol/L Potassium, pl 3.6 3.3 - 4.9 mmol/L [facility] Chloride 101 97 - 110 mmol/L [facility] CO2 28 22 - 32 mmol/L [facility] Anion gap 4 2 - 15 mmol/L [facility] BUN 11 6 - 25 mg/dL [facility] Creatinine 0.73(L) 0.80 - 1.30 mg/dL [facility] Glucose 91 70 - 199 mg/dL [facility] Comment: Interpretive Data Fasting glucose >/= [...] 2022. Calcium 8.3(L) 8.5 - 10.3 mg/dL [facility] Bilirubin, total 0.3 0.1 - 1.2 mg/dL [facility] Protein, pl 6.8 6.5 - 8.5 g/dL [facility] Albumin 3.0(L) 3.5 - 5.0 g/dL [facility] Alk phos 65 40 - 130 Units/L [facility] ALT 9 7 - 55 Units/L [facility] AST 21 10 - 50 Units/L [facility] Blood 10/10/2024 10:3 2 PM CDT 10/10/2024 11:41 PM CDT Vanessa Savi Cecy CREATIVE COORDINATOR LAB BLOOD ORDERABLES Donita l Result Performing Organization Address [facility] Co de Phone Number [facility] Department [place] [employer] [place] [address] * (ABNORMAL) CBC without differential (10/10/2024 3:25 PM CDT) WBC 6.06 3.80 - 9.90 K/cumm Hgb 12.6(L) 13.0 - 17.5 g/dL [facility] Hct 40.9 38.9 - 50.3 % [facility] Plt 478(H) 150 - 400 K/cumm [facility] MPV 8.7(L) 9.1 - 12.3 fL [facility] RBC 5.03 4.30 - 5.80 M/cumm [facility] MCV 81.3 81.3 - 96.4 fL [facility] MCH 25.0(L) 27.1 - 33.3 pg [facility] MCHC 30.8(L) 32.3 - 35.7 g/dL [facility] RDW CV 22.8(H) 11.1 - 14.9 % [facility] RDW SD 66.7(H) 35.7 - 48.1 fL [facility] NRBC abs 0.00 0.00 - 0.01 K/cumm [facility] Blood 10/10/2024 3:25 PM CDT 10/10/2024 3:57 PM CDT Edie Licona CREATIVE COORDINATOR LAB BLOOD ORDERABLES Donita l Result Performing Organization Address City/[facility]/ZIP Co de Phone Number [facility] Department [place] [address] * Vancomycin level trough Please draw vanc trough 30 minutes before the 4th dose (10/10/2024 3:25 PM CDT) Vancomycin trough 16.3 10.0 - 20.0 mcg/mL Blood 10/10/2024 3:25 PM CDT 10/10/2024 3:39 PM CDT Narrative [facility] - 10/10/2024 4:10 PM CDT Please draw vanc trough 30 minutes before the 4th dose us Bianca Ceja CREATIVE COORDINATOR LAB BLOOD ORDERABLES Final Result [facility] Department [place] [address] * X-ray cervical spine 2 or 3 [...] Percutaneous drain remains in place. Procedure Note Guilherme Lucio MD - 10/10/2024 EXAMINATION: XR SPINE CERVICAL [...] junction. Electronically signed by: Guilherme Handley M.D. us Jonathan Alston NP IMG XR PROCEDURES Final Result * eGFR [...] 8:59 PM CDT 10/09/2024 9:33 PM CDT us Vanessa Sam NP LAB BLOOD ORDERABLES Donita sinha Result [facility] Department [place] [address] * (ABNORMAL) CBC without differential (10/09/2024 8:59 PM CDT) Pathologist [facility] WBC 13.71(H) 3.80 - 9.90 K/cumm Hgb 8.9(L) 13.0 - 17.5 g/dL [facility] Hct 28.6(L) 38.9 - 50.3 % [facility] Plt 658(H) 150 - 400 K/cumm [facility] MPV 8.4(L) 9.1 - 12.3 fL [facility] RBC 3.48(L) 4.30 - 5.80 M/cumm [facility] MCV 82.2 81.3 - 96.4 fL [facility] MCH 25.6(L) 27.1 - 33.3 pg [facility] MCHC 31.1(L) 32.3 - 35.7 g/dL [facility] RDW CV 23.1(H) 11.1 - 14.9 % [facility] RDW SD 66.5(H) 35.7 - 48.1 fL [facility] NRBC abs 0.00 0.00 - 0.01 K/cumm [facility] Blood 10/09/2024 8:59 PM CDT 10/09/2024 9:34 PM CDT Edie Licona CREATIVE COORDINATOR LAB BLOOD ORDERABLES Donita l Result [facility] Department [place] [address] * (ABNORMAL) Phosphorus (10/09/2024 8:59 PM CDT) Pathologist [facility] Phosphorus, pl 2.0(L) 2.3 - 4.5 mg/dL Blood 10/09/2024 8:59 PM CDT 10/09/2024 9:33 PM CDT Deshawn Cornelius MD LAB BLOOD ORDERABLES Final Result [facility] Department [place] [address] * Magnesium (10/09/2024 8:59 PM CDT) Pathologist [facility] Magnesium 2.2 1.4 - 2.5 mg/dL Blood 10/09/2024 8:59 PM CDT 10/09/2024 9:33 PM CDT Deshawn Cornelius MD LAB BLOOD ORDERABLES Final Result Performing Organization Address [facility] Co de Phone Number [facility] Department [place] [address] * (ABNORMAL) Comprehensive metabolic panel (10/09/2024 8:59 PM CDT) [facility] Sodium 136 135 - 145 mmol/L Potassium, pl 3.9 3.3 - 4.9 mmol/L [facility] Chloride 102 97 - 110 mmol/L [facility] CO2 27 22 - 32 mmol/L [facility] Anion gap 7 2 - 15 mmol/L [facility] BUN 13 6 - 25 mg/dL [facility] Creatinine 0.75(L) 0.80 - 1.30 mg/dL [facility] Glucose 105 70 - 199 mg/dL [facility] Comment: Interpretive Data Fasting glucose >/= [...] 2022. Calcium 8.5 8.5 - 10.3 mg/dL [facility] Bilirubin, total 0.2 0.1 - 1.2 mg/dL [facility] Protein, pl 7.2 6.5 - 8.5 g/dL [facility] Albumin 2.7(L) 3.5 - 5.0 g/dL [facility] Alk phos 66 40 - 130 Units/L [facility] ALT 10 7 - 55 Units/L [facility] AST 17 10 - 50 Units/L [facility] Blood 10/09/2024 8:59 PM CDT 10/09/2024 9:33 PM CDT Vanessa Sam NP LAB BLOOD ORDERABLES Donita l Result [facility] Department [place] [address] * POCT glucose (10/09/2024 8:23 PM CDT) Pathologist [facility] Glucose, POC 122 70 - 199 mg/dL Blood 10/09/2024 8:23 PM CDT 10/09/2024 8:23 PM CDT Deshawn Cornelius MD LAB POCT ORDERABLES - DEVICE Final Result Performing Organization Address City/[facility]/ZIP Co de Phone Number [facility] Department [place] [address] * HIV 1/2 Antibody plus p24 Antigen Blood (10/09/2024 3:30 PM CDT) HIV 1/2 ab + p24 ag Nonreactive Nonreactive Comment:Nonreactive for HIV- 1 antigen and HIV-1/HIV-2 antibodies. No laboratory evidence of HIV infection. If acute HIV infection is suspected, consider testing for HIV-1 RNA. Current interpretive data was last revised on 22. Blood 10/09/2024 3:30 PM CDT 10/09/2024 3:58 PM CDT [facility] MICROBIOLOGY - GENERA L ORDERABLES Final Result Performing Organization Address [facility] Co de Phone Number [facility] [employer] [place] [address] * Hepatitis C antibody Blood (10/09/2024 3:30 PM CDT) Hep C Ab Nonreactive Nonreactive Comment:Antibodies to HCV no t detected. Does NOT exclude the possibility of recent exposure to HCV. Current interpretive data was last revised on 22 Blood 10/09/2024 3:30 PM CDT 10/09/2024 3:58 PM CDT [facility] LAB MICROBIOLOGY - GENERA L ORDERABLES Final Result Performing Organization Address [facility] de Phone Number [facility] [place] [address] * Hepatitis B core antibody, total Blood (10/09/2024 3:30 PM CDT) Pathologist [facility] Hep B core IgG/IgM Nonreactive Nonreactive Blood 10/09/2024 3:30 PM CDT 10/09/2024 3:58 PM CDT [facility] [place] NP LAB MICROBIOLOGY - GENERA L ORDERABLES Final Result Performing Organization Address [facility] de Phone Number [facility] [employer] [place] [address] * Hepatitis B surface antibody (immune status) Blood (10/09/2024 3:30 PM CDT) Pathologist [facility] HBsAb (immune status) Nonreactive Comment:This result is consi stent with a lack of immunity to Hepatitis B Virus when used in the setting of routine screening. Current interpretative data was last revised on 22 Blood 10/09/2024 3:30 PM CDT 10/09/2024 3:58 PM CDT Vanessa Sam CREATIVE COORDINATOR LAB MICROBIOLOGY - GENERA L ORDERABLES Final Result Performing Organization Address City/[facility] Co de Phone Number [facility] Department [place] [address] * Hepatitis B Surface Antigen Blood (10/09/2024 3:30 PM CDT) HepBsAg Nonreactive Nonreactive Blood 10/09/2024 3:30 PM CDT 10/09/2024 3:58 PM CDT Vanessa Sam LAB MICROBIOLOGY - GENERA L ORDERABLES Final Result Performing Organization Address [facility] de Phone Number [facility] Department [place] [address] * Blood culture Blood Antecubital, right (10/09/2024 10:05 AM CDT) Report Final Report: No growth Blood (Antecubital, right) 10/09/2024 10:05 AM CDT 10/09/2024 12:24 PM CDT Narrative [facility] - 10/13/2024 4:00 PM CDT Received only [...] performance characteristics have been verified by the [facility]. For questions about this culture, contact the Microbiology Laboratory at [phone]. Interpretive data was last revised on 24. Deshawn Cornelius MD LAB MICROBIOLOGY - G ENERAL ORDERABLES Final Result [facility] Department [place] [address] * Blood culture Blood (10/09/2024 10:05 AM CDT) Report Final Report: No growth Blood 10/09/2024 10:0 5 AM CDT 10/09/2024 12:24 PM CDT Narrative [facility] - 10/13/2024 4:00 PM CDT Collection->Peripheral [...] performance characteristics have been verified by the [facility]. For questions about this culture, contact the Microbiology Laboratory at [phone]. Interpretive data was last revised on 24. us Deshawn Cornelius MD LAB MICROBIOLOGY - G ENERAL ORDERABLES Final Result Performing Organization Address [facility] Co de Phone Number [facility] Department [place] [address] * eGFR (10/08/2024 9:09 PM CDT) Pathologist [facility] eGFR >90 >=60 mL/min/1. 73 m2 Comment: [...] CDT 10/08/2024 9:43 PM CDT Edie Licona NP LAB BLOOD ORDERABLES Donita l Result Performing Organization Address City/[facility]/ZIP Co de Phone Number [facility] Department [place] [address] * (ABNORMAL) CBC without differential (10/08/2024 9:09 PM CDT) Pathologist [facility] WBC 21.01(H) 3.80 - 9.90 K/cumm Hgb 9.0(L) 13.0 - 17.5 g/dL [facility] Hct 28.7(L) 38.9 - 50.3 % [facility] Plt 737(H) 150 - 400 K/cumm [facility] MPV 8.9(L) 9.1 - 12.3 fL [facility] RBC 3.55(L) 4.30 - 5.80 M/cumm [facility] MCV 80.8(L) 81.3 - 96.4 fL [facility] MCH 25.4(L) 27.1 - 33.3 pg [facility] MCHC 31.4(L) 32.3 - 35.7 g/dL [facility] RDW CV 23.4(H) 11.1 - 14.9 % [facility] RDW SD 65.5(H) 35.7 - 48.1 fL [facility] NRBC abs 0.00 0.00 - 0.01 K/cumm [facility] Blood 10/08/2024 9:09 PM CDT 10/08/2024 9:44 PM CDT us Edie Licona CREATIVE COORDINATOR LAB BLOOD ORDERABLES Donita l Result [facility] Department of [employer] [place] [address] * Phosphorus (10/08/2024 9:09 PM CDT) Phosphorus, pl 2.5 2.3 - 4.5 mg/dL Blood 10/08/2024 9:09 PM CDT 10/08/2024 9:43 PM CDT Deshawn Cornelius MD LAB BLOOD ORDERABLES Final Result [facility] [place] [employer] [place] [address] * Magnesium (10/08/2024 9:09 PM CDT) Magnesium 2.4 1.4 - 2.5 mg/dL Blood 10/08/2024 9:09 PM CDT 10/08/2024 9:43 PM CDT us Deshawn Cornelius MD LAB BLOOD ORDERABLES Final Result [facility] Department [place] [address] * (ABNORMAL) Basic metabolic panel (10/08/2024 9:09 PM CDT) [facility] Sodium 133(L) 135 - 145 mmol/L Potassium, pl 4.0 3.3 - 4.9 mmol/L [facility] Chloride 102 97 - 110 mmol/L [facility] CO2 27 22 - 32 mmol/L [facility] Anion gap 4 2 - 15 mmol/L [facility] BUN 17 6 - 25 mg/dL [facility] Creatinine 0.71(L) 0.80 - 1.30 mg/dL [facility] Glucose 124 70 - 199 mg/dL [facility] Comment: Interpretive Data Fasting glucose >/= [...] 2022. Calcium 8.8 8.5 - 10.3 mg/dL [facility] Blood 10/08/2024 9:09 PM CDT 10/08/2024 9:43 PM CDT us Edie Licona NP LAB BLOOD ORDERABLES Donita l Result Performing Organization Address [facility]/ZIP Co de Phone Number [facility] Department [place] [address] * Vancomycin level trough Draw trough 30 minutes prior to 4th dose. (10/08/2024 2:34 PM CDT) Vancomycin trough 12.6 10.0 - 20.0 mcg/mL Blood 10/08/2024 2:34 PM CDT 10/08/2024 3:06 PM CDT Narrative SHERE[facility] PANIAGUA - 10/08/2024 3:35 PM CDT Draw trough 30 minutes prior to 4th dose. us Deshawn Cornelius MD LAB BLOOD ORDERABLES Final Result SHEREEN [facility] Department [place] [address] * XR Spine Cervical 2 or 3 [...] C5-C7 degenerative disc changes. Procedure Note Yaw Leigh, DO - 10/08/2024 EXAMINATION: XR WRIST BILATERAL [...] C5-C7 degenerative disc changes. Procedure Note Yaw Leigh, DO - 10/08/2024 EXAMINATION: XR WRIST BILATERAL [...] Ayaka auris DNA Not Detected Not Detected [facility] Comment: Interpretive Data Testing performed by [facility] using the Doron aga 6800 Ayaka auris assay. This assay detects DNA from Ayaka auris using Real-Time PCR. This assay is laboratory developed and is not cleared by the [place] Food and Drug Administration. The performance characteristics have been verified by the [facility]. Axilla/Groin 10/08/2024 10:2 1 AM CDT 10/08/2024 11:28 AM CDT Fela REGAN [facility] - 10/09/2024 12:15 AM CDT Order placed by [facility] due to ring surveillance. us Instant Order Generic Provider LAB MICROBIOLOGY - GENERAL ORDERABLES Final Result [facility] Department [place] [address] [facility] * Histoplasma Antigen Urine (10/08/2024 10:21 AM CDT) Histo Ag Ur result None Detected None Detected Histo Ag Ur interp Negative Negative [facility] Comment: Result Interpretation: Reference interval: None Detected Results reported as ng/mL in 0.20 - 20.00 ng/mL range Results above 20.00 ng/mL are reported as 'Positive, Above the Limit of Quantification' Testing Performed by: [facility], [address] [place] [address] [place] [address]. This test was developed and its performance characteristics determined by [facility]. It has not been cleared or approved by the FDA; however, FDA clearance or approval is not currently required for clinical use. The results are not intended to be used as the sole means for clinical diagnosis or patient management decisions. Interpretative data updated 07/23/2020 Urine 10/08/2024 10:2 1 AM CDT 10/08/2024 12:32 PM CDT Deshawn Cornelius MD LAB MICROBIOLOGY - [facility] ORDERABLES Final Result Performing Organization Address [facility] Co de Phone Number [facility] Department [place] [address] * Blood culture Blood (10/08/2024 10:21 AM CDT) Report Final Report: No growth Blood 10/08/2024 10:2 1 AM CDT 10/08/2024 11:24 AM CDT Narrative [facility] - 10/12/2024 12:00 PM CDT Collection->Peripheral 1. [...] performance characteristics have been verified by the [facility]. For questions about this culture, contact the Microbiology Laboratory at [phone]. Interpretive data was last revised on 24. Deshawn Cornelius MD LAB MICROBIOLOGY - G ENERAL ORDERABLES Final Result [facility] Department [place] [address] * Critical Care (10/08/2024 7:37 AM CDT) [...] plan with the ICU team and other medical/database reporting consultant staff, making frequent assessments and decisions [...] agrees with it. Electronically signed by: Mitch S. Glazer, M.D. us Edie Licona CREATIVE COORDINATOR IMG XR PROCEDURES Final R esult * (ABNORMAL) Urinalysis reflex to microscopic (10/07/2024 8:08 PM CDT) Color, ur Straw Yellow Clarity, ur Clear Clear [facility] Specific gravity, ur 1.026 1.003 - 1.030 [facility] pH, urine 6.0 [facility] Comment: Interpretive Data U rine pH is affected by diet, medications, systemic acid-base disturbances, and renal tubular function. pH may affect urinary stone formation. For example, urine pH below 6.0 may help reduce the tendency for calcium phosphate stones and pH greater than 6.0 may reduce the tendency for uric acid stone formation. Source: [facility] [employer] Current Interpretive Data was last revised on 2017 Protein, ur ql 1+(A) Negative [facility] Glucose, ur ql Negative Negative [facility] Ketones, ur 1+(A) Negative [facility] Bilirubin, ur Negative Negative [facility] Blood, ur Trace(A) Negative [facility] Urobilinogen, ur <2.0 <2.0 mg/dL [facility] Nitrite, ur Negative Negative [facility] Leukocyte esterase, ur Negative Negative [facility] UA reflex comment Reflex to microscopic UA will be performed. [facility] Urine 10/07/2024 8:08 PM CDT 10/07/2024 9:40 PM CDT us Chong Hutchinson CREATIVE COORDINATOR LAB URINE ORDERABLES Fi nal Result [facility] Department [place] [address] * (ABNORMAL) Urinalysis, microscopic only (10/07/2024 8:08 PM CDT) WBC, ur 6-10(A) 0 - 5 /HPF RBC, ur 21-50(A) 0 - 2 /HPF [facility] Epithelial cells, squamous, ur 1-5 0 - 5 /HPF [facility] Bacteria, ur Trace(A) [facility] Mucous, ur Present(A) [facility] Uric acid crystals, ur Trace(A) [facility] Hyaline casts, ur 1-5 0 - 10 /LPF [facility] Urine 10/07/2024 8:08 PM CDT 10/07/2024 9:40 PM CDT us Chong Hutchinson NP LAB URINE ORDERABLES Fi nal Result [facility] Department [place] [address] * Critical Care (10/07/2024 7:38 PM CDT) [...] plan with the ICU team and other medical/database reporting consultant staff, making frequent assessments and decisions [...] 7:05 PM CDT 10/07/2024 7:05 PM CDT Deshawn Cornelius MD LAB POCT ORDERABLES - DEVICE Final Result Performing Organization Address [facility] de Phone Number [facility] [place] [employer] [place] [address] * Q fever ab w rflx to immunofluorescence Blood (10/07/2024 7:02 PM CDT) Pathologist [facility] Q fever ab scrn w titer rflx ser Negative Negative [facility] Comment: No antibodies to Q Fever (Coxiella burnetii) detected. Repeat testing on a new sample collected in 2-3 weeks if acute Q Fever is suspected. ADDITIONAL INFORMATION This test was developed and its performance characteristics determined by [facility] in a manner consistent with CLIA requirements. This test has not been cleared or approved by the [place].S[place] Food and Drug Administration. Test Performed by: [facility] [place] [address] Rn Ccu: Leia Ocasio Ph.D.; CLIA# [id number] Blood 10/07/2024 7:02 PM CDT 10/07/2024 7:57 PM CDT us Kelli Landry MD LAB MICROBIOLOGY - GENE RAL ORDERABLES Final Result Performing Organization Address [facility] Co de Phone Number [facility] Department [place] [employer] [place] [address] [facility] * Histoplasma Antibody Blood (10/07/2024 7:02 PM CDT) Pathologist [facility] Histoplasma Ab, yeast CF Negative Negative [facility] Histoplasma Ab, Immunodiffusion Negative Negative [facility] Comment: A negative complement fixation and immunodiffusion (CF/ID) result does not exclude the diagnosis of histoplasmosis. Repeat testing by CF/ID in 1-2 weeks if clinically indicated. Test Performed by: [facility] [address] [place] [address] Rn Ccu: Leia Ocasio Ph.D.; CLIA# [id number] Blood 10/07/2024 7:02 PM CDT 10/07/2024 9:15 PM CDT us Kelli Landry MD LAB MICROBIOLOGY - GENE RAL ORDERABLES Final Result [facility] [place] [address] [facility] * Potassium, whole blood (10/07/2024 7:02 PM CDT) [facility] Potassium, bld 4.4 3.3 - 4.9 mmol/L Blood 10/07/2024 7:02 PM CDT 10/07/2024 7:10 PM CDT us Chong Hutchinson NP LAB BLOOD ORDERABLES Fi nal Result Performing Organization Address [facility] Co de Phone Number [facility] Department [place] [employer] [place] [address] * Calcium, ionized, whole blood (10/07/2024 7:02 PM CDT) [facility] Ca, ionized, bld 5.05 4.50 - 5.10 mg/dL Blood 10/07/2024 7:02 PM CDT 10/07/2024 7:10 PM CDT Chong Hutchinson NP LAB BLOOD ORDERABLES Fi nal Result Performing Organization Address City/[facility] Co de Phone Number [facility] [place] [address] * eGFR (10/07/2024 7:02 PM CDT) eGFR [...] 10/07/2024 7:32 PM CDT us Chong Hutchinson CREATIVE COORDINATOR LAB BLOOD ORDERABLES Fi nal Result Performing Organization Address City/[facility]/ZIP Co de Phone Number [facility] Department [place] [employer] [place] [address] * (ABNORMAL) Lactate, whole blood (10/07/2024 7:02 PM CDT) Lactate, bld 0.5(L) 0.7 - 2.0 mmol/L Comment:REVIEWED Blood 10/07/2024 7:02 PM CDT 10/07/2024 7:10 PM CDT us Chong Hutchinson CREATIVE COORDINATOR LAB BLOOD ORDERABLES Fi nal Result [facility] [place] [employer] [place] [address] * aPTT (10/07/2024 7:02 PM CDT) aPTT [...] ORDERABLES Fi nal Result Performing Organization Address [facility] Co de Phone Number [facility] [employer] [place], [place] [id number] * (ABNORMAL) Protime-INR (10/07/2024 7:02 PM CDT) Pathologist [facility] PT 15.0(H) 9.7 - 13.0 sec INR 1.38(H) 0.90 - 1.20 [facility] Comment: Interpretive data Oral anticoagulant therapeutic ranges: Venous thromboembolism prophylaxis or treatment: 2.0-3.0 CARDIOLOGY Standard range: 2.0-3.0 High-intensity range: 2.5-3.5 Refer to indication-specific guidelines for appropriate target ranges for prosthetic heart valve replacement. Current interpretive data was last revised on 2019. Blood 10/07/2024 7:02 PM CDT 10/07/2024 7:20 PM CDT Chong Hutchinson NP LAB BLOOD ORDERABLES Fi nal Result Performing Organization Address City/[facility]/ZIP Co de Phone Number [facility] [employer] [place], [place] [id number] * (ABNORMAL) CBC without differential (10/07/2024 7:02 PM CDT) WBC 14.98(H) 3.80 - 9.90 K/cumm Hgb 9.0(L) 13.0 - 17.5 g/dL [facility] Hct 29.1(L) 38.9 - 50.3 % [facility] Plt 594(H) 150 - 400 K/cumm [facility] MPV 8.7(L) 9.1 - 12.3 fL [facility] RBC 3.56(L) 4.30 - 5.80 M/cumm [facility] MCV 81.7 81.3 - 96.4 fL [facility] MCH 25.3(L) 27.1 - 33.3 pg [facility] MCHC 30.9(L) 32.3 - 35.7 g/dL [facility] RDW CV 23.5(H) 11.1 - 14.9 % [facility] RDW SD 68.2(H) 35.7 - 48.1 fL [facility] NRBC abs 0.00 0.00 - 0.01 K/cumm [facility] Blood 10/07/2024 7:02 PM CDT 10/07/2024 7:32 PM CDT us Chong Hutchinson CREATIVE COORDINATOR LAB BLOOD ORDERABLES Fi nal Result [facility] [place] [employer] [place] [address] * Phosphorus (10/07/2024 7:02 PM CDT) Pathologist [facility] Phosphorus, pl 3.7 2.3 - 4.5 mg/dL Blood 10/07/2024 7:02 PM CDT 10/07/2024 7:32 PM CDT us Chong Hutchinson CREATIVE COORDINATOR LAB BLOOD ORDERABLES Fi nal Result [facility] [place] [place] [address] * Magnesium (10/07/2024 7:02 PM CDT) Pathologist [facility] Magnesium 2.1 1.4 - 2.5 mg/dL Blood 10/07/2024 7:02 PM CDT 10/07/2024 7:32 PM CDT us Chong Hutchinson CREATIVE COORDINATOR LAB BLOOD ORDERABLES Fi nal Result [facility] Department [place] [address] * (ABNORMAL) Basic metabolic panel (10/07/2024 7:02 PM CDT) [facility] Sodium 136 135 - 145 mmol/L Potassium, pl 4.3 3.3 - 4.9 mmol/L [facility] Chloride 103 97 - 110 mmol/L [facility] CO2 23 22 - 32 mmol/L [facility] Anion gap 10 2 - 15 mmol/L [facility] BUN 14 6 - 25 mg/dL [facility] Creatinine 0.71(L) 0.80 - 1.30 mg/dL [facility] Glucose 125 70 - 199 mg/dL [facility] Comment: Interpretive Data Fasting glucose >/= [...] 2022. Calcium 8.3(L) 8.5 - 10.3 mg/dL [facility] Blood 10/07/2024 7:02 PM CDT 10/07/2024 7:32 PM CDT us Chong Hutchinson CREATIVE COORDINATOR LAB BLOOD ORDERABLES Fi nal Result Performing Organization Address [facility]/ZIP Co de Phone Number [facility] Department [place] [address] * Critical Care (10/07/2024 6:12 PM CDT) [...] plan with the ICU team and other medical/database reporting consultant staff, making frequent assessments and decisions [...] For susceptibility results, refer to accession number [id number] on the Cervical aspirate culture from 10/08/2024 (.) [facility] Organism STAPHYLOCOCCUS AUREUS [facility] Tissue (Cervical) 10/07/2024 6:11 PM CDT 10/08/2024 8:05 AM CDT Narrative SHEREEN RESTREPO - 10/13/2024 3:07 PM CDT C1-C2 Joint Tissue Testing performed by [facility] ([phone]) Specimens submitted from normally sterile body sites [...] ENERAL ORDERABLES Final Result Performing Organization Address City/[facility]/ZIP Co de Phone Number [facility] Department [place] [address] * FL Fluoroscopy < 1 Hour (10/07/2024 5:40 PM CDT) Narrative [facility] - 10/07/2024 5:48 PM CDT The images from this study are not interpreted by Radiology. Please refer to the physician's procedure / OR operative note. Deshawn Cornelius MD IMG FLUOROSCOPY PROC EDURES Final Result Performing Organization Address [facility]/ZIP Co de Phone Number [email or web address] * (ABNORMAL) Aerobic and anaerobic culture and gram stain Aspirate Cervical (10/07/2024 4:52 PM CDT) Direct Specimen Exam Stain: Few polymorphonuclear leukocytes seen. No organisms seen. Slide reviewed. Review is consistent with original read. Report Final Report: Few Staphylococcus aureus Methicillin susceptible (MSSA) by penicillin binding protein 2a (PBP2a) testing. (.) [facility]IAG[facility] Organism STAPHYLOCOCCUS AUREUS [facility]EN [facility] Aspirate (Cervical) 10/07/2024 4:52 PM CDT 10/08/2024 8:04 AM CDT Narrative SHEREEN PANIAGUA - 10/13/2024 3:06 PM CDT C1-C2 Joint Testing performed by [facility] ([phone]) Specimens submitted from normally sterile body sites [...] MICROBIOLOGY - G ENERAL ORDERABLES Final Result [facility] Department [place] [address] * (ABNORMAL) POC Blood Gas and Chemistries, Arterial - (10/07/2024 4:48 PM CDT) pH, Art POC 7.29(L) 7.35 - 7.45 pCO2, Art POC 48(H) 35 - 45 mmHg [facility] pO2, Art POC 233(H) 83 - 108 mmHg [facility] Na, POC 136 135 - 145 mmol/L [facility] K POC 4.0 3.3 - 4.9 mmol/L [facility] Comment: Interpretive Data Not all point of care methods assess for hemolysis. Confirm with instrument and retest K+ if not consistent with clinical signs and symptoms. Current Interpretive Data was last revised on 2023. Cl, POC 108 97 - 110 mmol/L [facility] Ionized Ca, POC 5.18(H) 4.50 - 5.10 mg/dL [facility] Glucose, POC 123 70 - 199 mg/dL [facility] Lactate POC 0.7 0.7 - 2.0 mmol/L [facility] SO2 (ramesh) arterial 99(H) 90 - 95 % [facility] Base excess, POC -3.5 mmol/L [facility] Hct, POC 28.0(L) 41.4 - 51.6 % [facility] Total Hb, POC 9.2(L) 13.8 - 17.2 g/dL [facility] Blood 10/07/2024 4:48 PM CDT 10/07/2024 4:48 PM CDT us Deshawn Cornelius MD LAB POCT ORDERABLES - DEVICE Final Result [facility] Department [place] [address] * Tissue aerobic and anaerobic culture and gram stain Tissue Cervical (10/07/2024 3:57 PM CDT) Direct Specimen Exam Stain: No polymorphonuclear leukocytes seen. No organisms seen. Report Final Report: No growth [facility] Tissue (Cervical) 10/07/2024 3:57 PM CDT 10/07/2024 5:40 PM CDT Narrative [facility] - 10/12/2024 10:30 AM CDT Paraspinal tissue Received in transport media. Specimen collected in the operating room. Testing performed by [facility] ([phone]) Specimens submitted from normally sterile body sites [...] Deshawn Cornelius MD LAB MICROBIOLOGY - [facility] ORDERABLES Final Result [facility] Department [place] [address] * [place] AN PROCEDURE PLACEHOLDER (10/07/2024 3:38 PM CDT) [...] MD ANESTHESIA ORDERABLES Fi nal Result * NH AN PROCEDURE PLACEHOLDER (10/07/2024 3:37 PM CDT) [...] MD ANESTHESIA ORDERABLES Fi nal Result * NH AN ELECTIVE ENDOTRACHEAL AIRWAY, NH AN PROCEDURE PLACEHOLDER (10/07/2024 3:36 PM CDT) Belkis Aldrich CRNA - 10/07/2024 3:36 PM CDT Belkis Lockett CRNA 10/07/2024 3:42 PM Airway Patient location: OR Urgency: elective Indications for airway management: anesthesia Difficult airway: no Staff: Supervising provider: Kenya Hernandez MD Placed by: TOWER LOADER OPERATOR: Belkis Lockett CRNA Emergent airway documentation: Risks [...] oral Blade type: Lobo Video blade type: [employer] Blade size: 3 (3X anterior blade) Cormack-Lehane [...] AM CDT Narrative 10/07/2024 1:45 PM CDT [facility] [place] [address] Transthoracic Echocardiographic Report Patient Name: SABINO PACHECO : 1945 (79y 7m) Gender: M Study Date: 10/07/2024 11:09:18 AM Ht(Inch): 72 Wt(Lb): 164.9 BSA: 1.95 Wine Fermenter: Cecily Hernandez RDCS Location: [id number] Order Provider: DESHAWN CORNELIUS BMI: 22.36 BP: [...] Procedure Note Yaw Gan MD - 10/07/2024 [facility] [place] [address] [place] [address] Transthoracic Echocardiographic Report Patient Name: SABINO PACHECO : 1945 (79y 7m) Gender: M Study Date: 10/07/2024 11:09:18 AM Ht(Inch): 72 Wt(Lb): 164.9 BSA: 1.95 Wine Fermenter: Cecily Hernandez RDCS Location: [id number] Order Provider:DESHAWN CORNELIUS BMI: 22.36 BP: 119 [...] Yaw Gan MD 10/07/2024 1:44:58 PM CDT Deshawn Cornelius MD CV ECHO PROCEDURES F inal Result * POCT glucose (10/07/2024 11:32 AM CDT) Glucose, POC 100 70 - 199 mg/dL Blood 10/07/2024 11:3 2 AM CDT 10/07/2024 11:32 AM CDT us Deshawn Cornelius MD LAB POCT ORDERABLES - DEVICE Final Result SHEREEN [facility] Department [place] [address] * Critical Care (10/07/2024 11:20 AM CDT) [...] plan with the ICU team and other medical/database reporting consultant staff, making frequent assessments and decisions [...] Blood culture Blood (10/07/2024 9:56 AM CDT) Pathologist [facility] Direct Specimen Exam Molecular Analysis: Methicillin-suscep tible Staphylococcus aureus (MSSA) detected by the [facility] BCID-GP panel. This test does not exclude the possibility of a mixed bacterial infection. Notification of: Methicillin-suscep tible Staphylococcus aureus (MSSA) called to and read back by: Chong Hutchinson NP ([phone]) on 10/08/2024 04:52:04 by: Yaw Griffith [place] Direct Specimen Exam Stain: Gram Positive Cocci in clusters Time to culture positivity (anaerobic media): 15.5 hours Notification of: Gram Positive Cocci in clusters called to and read back by: Chong Hutchinson NP [phone] on 10/08/2024 02:50:21 by: Lizbeth Robles [place] [facility] Report Final Report: Staphylococcus aureus Methicillin susceptible (MSSA) by penicillin binding protein 2a (PBP2a) testing. (.) [facility] Organism STAPHYLOCOCCUS AUREUS [facility] Blood 10/07/2024 9:56 AM CDT 10/07/2024 10:13 AM CDT Narrative [facility] - 10/13/2024 8:13 AM CDT Collection->Peripheral [...] performance characteristics have been verified by the [facility]. For questions about this culture, contact the Microbiology Laboratory at [phone]. Interpretive data was last revised on 24. [...] ENERAL ORDERABLES Final Result Performing Organization Address City/[facility]/ZIP Co de Phone Number [facility] Department [place] [address] * Blood culture Blood (10/07/2024 9:56 AM CDT) Report Final Report: No growth Blood 10/07/2024 9:56 AM CDT 10/07/2024 10:13 AM CDT Narrative SHEREEN [facility] - 10/11/2024 12:01 PM CDT Collection->Peripheral [...] performance characteristics have been verified by the [facility]. For questions about this culture, contact the Microbiology Laboratory at [phone]. Interpretive data was last revised on 24. Deshawn Cornelius MD LAB MICROBIOLOGY - G ENERAL ORDERABLES Final Result [facility] PANIAG[facility] [employer] [place] [address] * POCT glucose (10/07/2024 7:40 AM CDT) Glucose, POC 106 70 - 199 mg/dL Blood 10/07/2024 7:40 AM CDT 10/07/2024 7:40 AM CDT Deshawn Cornelius MD LAB POCT ORDERABLES - DEVICE Final Result Performing Organization Address [facility] [place] [address] * (ABNORMAL) CRP (acute phase) (10/07/2024 3:28 AM CDT) [facility] CRP 248.0(H) <=10.0 mg/L Blood 10/07/2024 3:28 AM CDT 10/07/2024 5:12 AM CDT us Deshawn Cornelius MD LAB BLOOD ORDERABLES Final Result Performing Organization Address [facility] [place] [address] * POCT glucose (10/07/2024 2:53 AM CDT) [facility] Signature Glucose, POC 112 70 - 199 mg/dL Blood 10/07/2024 2:53 AM CDT 10/07/2024 2:53 AM CDT Deshawn Cornelius MD LAB POCT ORDERABLES - DEVICE Final Result Performing Organization Address [facility] [place] [address] * ECG 12 lead (10/07/2024 2:17 AM CDT) Ventricular Rate EKG/Min 86 BPM [facility] Atrial Rate 136 BPM [facility] QRS-Interval (MSEC) 100 ms [facility] QT-Interval (MSEC) 412 ms [facility] QTc 493 ms [facility] P [place] 64 degrees [facility] R [place] -45 degrees [facility] T [place] 73 degrees [facility] Diagnosis Sinus tachycardia with 2nd degree A-V block (Mobitz I) Left anterior fascicular block Prolonged QT Abnormal ECG No previous ECGs available Confirmed by EVELIN GREEN M.D ([id number]) on 10/07/2024 11:51:49 AM [facility] 10/07/2024 2:17 AM CDT 10/07/2024 11:51 AM CDT us Deshawn Cornelius MD ECG ORDERABLES Donita l Result [facility] * POCT glucose (10/06/2024 11:05 PM CDT) Pathologist [facility] Glucose, POC 112 70 - 199 mg/dL Blood 10/06/2024 11:0 5 PM CDT 10/06/2024 11:05 PM CDT us Deshawn Cornelius MD LAB POCT ORDERABLES - DEVICE Final Result [facility] Department [place] [address] * Critical Care (10/06/2024 7:28 PM CDT) [...] plan with the ICU team and other medical/database reporting consultant staff, making frequent assessments and decisions [...] record us Jens Stewart MD IN CLINIC/BEDSIDE URI ADAMES Final Result * POCT glucose (10/06/2024 7:09 PM CDT) Glucose, POC 96 70 - 199 mg/dL Blood 10/06/2024 7:09 PM CDT 10/06/2024 7:09 PM CDT us Deshawn Cornelius MD LAB POCT ORDERABLES - DEVICE Final Result [facility] Department [place] [address] * Critical Care (10/06/2024 6:30 PM CDT) [...] plan with the ICU team and other medical/database reporting consultant staff, making frequent assessments and decisions [...] PM CDT 10/06/2024 6:35 PM CDT Narrative [facility] - 10/11/2024 7:01 AM CDT Collection->Peripheral 1. [...] performance characteristics have been verified by the [facility]. For questions about this culture, contact the Microbiology Laboratory at [phone]. Interpretive data was last revised on 24. Deshawn Cornelius MD LAB MICROBIOLOGY - G ENERAL ORDERABLES Final Result Performing Organization Address [facility] Co de Phone Number [facility] Department [place] [address] * POCT glucose (10/06/2024 6:09 PM CDT) [facility] Glucose, POC 104 70 - 199 mg/dL Blood 10/06/2024 6:09 PM CDT 10/06/2024 6:09 PM CDT Deshawn Cornelius MD LAB POCT ORDERABLES - DEVICE Final Result Performing Organization Address [facility] de Phone Number [facility] Department [place] [address] * Lactate (10/06/2024 6:08 PM CDT) [facility] Lactate 1.2 0.7 - 2.0 mmol/L Blood 10/06/2024 6:08 PM CDT 10/06/2024 6:19 PM CDT Deshawn Cornelius MD LAB BLOOD ORDERABLES Final Result Performing Organization Address [facility] [place] [address] * eGFR (10/06/2024 6:08 PM CDT) [facility] eGFR 87 >=60 mL/min/1. 73 m2 Comment: [...] Cornelius MD LAB BLOOD ORDERABLES Final Result [facility] Department [place] [address] * (ABNORMAL) Differential, auto (10/06/2024 6:08 PM CDT) Neutrophil abs 11.22(H) 1.50 - 6.50 K/cumm Imm gran abs 0.11(H) 0.00 - 0.10 K/cumm [facility] Lymphocyte abs 1.12 0.80 - 3.30 K/cumm [facility] Monocyte abs 1.38(H) 0.20 - 0.80 K/cumm [facility] Eosinophil abs 0.01 0.00 - 0.50 K/cumm [facility] Basophil abs 0.05 0.00 - 0.10 K/cumm [facility] Neutrophil pct 80.7 % [facility] Comment: Interpretive Data Percent cell count reference ranges are not reported, since discordance with absolute values may lead to misinterpretation of CBC data. Current Interpretive Data was last revised on 2017. Imm gran pct 0.8 % [facility] Comment: Interpretive Data Percent cell count reference ranges are not reported, since discordance with absolute values may lead to misinterpretation of CBC data. Current Interpretive Data was last revised on 2017. Lymphocyte pct 8.1 % [facility] Comment: Interpretive Data Percent cell count reference ranges are not reported, since discordance with absolute values may lead to misinterpretation of CBC data. Current Interpretive Data was last revised on 2017. Monocyte pct 9.9 % [facility] Comment: Interpretive Data Percent cell count reference ranges are not reported, since discordance with absolute values may lead to misinterpretation of CBC data. Current Interpretive Data was last revised on 2017. Eosinophil pct 0.1 % [facility] Comment: Interpretive Data Percent cell count reference ranges are not reported, since discordance with absolute values may lead to misinterpretation of CBC data. Current Interpretive Data was last revised on 2017. Basophil pct 0.4 % [facility] Comment: Interpretive Data Percent cell count reference ranges are not reported, since discordance with absolute values may lead to misinterpretation of CBC data. Current Interpretive Data was last revised on 2017. Blood 10/06/2024 6:08 PM CDT 10/06/2024 6:19 PM CDT us Deshawn Cornelius MD LAB BLOOD ORDERABLES Final Result [facility] Department [place] [address] * (ABNORMAL) CBC with auto differential (10/06/2024 6:08 PM CDT) WBC 13.89(H) 3.80 - 9.90 K/cumm Hgb 10.1(L) 13.0 - 17.5 g/dL [facility] Hct 32.4(L) 38.9 - 50.3 % [facility] Plt 636(H) 150 - 400 K/cumm [facility] MPV 8.6(L) 9.1 - 12.3 fL [facility] RBC 4.00(L) 4.30 - 5.80 M/cumm [facility] MCV 81.0(L) 81.3 - 96.4 fL [facility] MCH 25.3(L) 27.1 - 33.3 pg [facility] MCHC 31.2(L) 32.3 - 35.7 g/dL [facility] RDW CV 23.6(H) 11.1 - 14.9 % [facility] RDW SD 67.4(H) 35.7 - 48.1 fL [facility] NRBC abs 0.00 0.00 - 0.01 K/cumm [facility] Blood 10/06/2024 6:08 PM CDT 10/06/2024 6:19 PM CDT Deshawn Cornelius MD LAB BLOOD ORDERABLES Final Result [facility] Department [place] [address] * (ABNORMAL) Vitamin D 25 hydroxy (10/06/2024 6:08 PM CDT) Vitamin D 25-OH 28(L) 30 - 80 ng/mL Blood 10/06/2024 6:08 PM CDT 10/06/2024 6:19 PM CDT Deshawn Cornelius MD LAB BLOOD ORDERABLES Final Result [facility] Department [place] [address] * Blood culture Blood (10/06/2024 6:08 PM CDT) Report Final Report: No growth Blood 10/06/2024 6:08 PM CDT 10/06/2024 6:35 PM CDT Narrative [facility] - 10/11/2024 7:01 AM CDT Collection->Peripheral 1. [...] performance characteristics have been verified by the [facility]. For questions about this culture, contact the Microbiology Laboratory at [phone]. Interpretive data was last revised on 24. Deshawn Cornelius MD LAB MICROBIOLOGY - G ENERAL ORDERABLES Final Result Performing Organization Address City/[facility]/ZIP Co de Phone Number [facility] Department [place] [address] * (ABNORMAL) CRP (acute phase) (10/06/2024 6:08 PM CDT) Pathologist [facility] CRP 226.0(H) <=10.0 mg/L Blood 10/06/2024 6:08 PM CDT 10/06/2024 6:19 PM CDT Deshawn Cornelius MD LAB BLOOD ORDERABLES Final Result [facility] [employer] [place] [address] * Phosphorus (10/06/2024 6:08 PM CDT) Phosphorus, pl 3.3 2.3 - 4.5 mg/dL Blood 10/06/2024 6:08 PM CDT 10/06/2024 6:19 PM CDT Deshawn Cornelius MD LAB BLOOD ORDERABLES Final Result [facility] Department [place] [address] * Magnesium (10/06/2024 6:08 PM CDT) [facility] Magnesium 2.3 1.4 - 2.5 mg/dL Blood 10/06/2024 6:08 PM CDT 10/06/2024 6:19 PM CDT Deshawn Cornelius MD LAB BLOOD ORDERABLES Final Result Performing Organization Address [facility] de Phone Number [facility] [place] [address] * (ABNORMAL) Comprehensive metabolic panel (10/06/2024 6:08 PM CDT) [facility] Sodium 137 135 - 145 mmol/L Potassium, pl 3.8 3.3 - 4.9 mmol/L [facility] Chloride 102 97 - 110 mmol/L [facility] CO2 24 22 - 32 mmol/L [facility] Anion gap 11 2 - 15 mmol/L [facility] BUN 13 6 - 25 mg/dL [facility] Creatinine 0.89 0.80 - 1.30 mg/dL [facility] Glucose 101 70 - 199 mg/dL [facility] Comment: Interpretive Data Fasting glucose >/= [...] 2022. Calcium 9.1 8.5 - 10.3 mg/dL [facility] Bilirubin, total 0.4 0.1 - 1.2 mg/dL [facility] Protein, pl 8.1 6.5 - 8.5 g/dL [facility] Albumin 3.2(L) 3.5 - 5.0 g/dL [facility] Alk phos 79 40 - 130 Units/L [facility] ALT 14 7 - 55 Units/L [facility] AST 24 10 - 50 Units/L [facility] Blood 10/06/2024 6:08 PM CDT 10/06/2024 6:19 PM CDT us Deshawn Cornelius MD LAB BLOOD ORDERABLES Final Result [facility] Department [place] [address] * Critical Care (10/06/2024 6:00 PM CDT) [...] plan with the ICU team and other medical/database reporting consultant staff, making frequent assessments and decisions [...] IN CLINIC/BEDSIDE ORDER [place] Final Result * [place] CRITICAL CARE ILL/INJURED PATIENT INIT 30-74 MIN [...] 5:06 PM CDT) ABO Rh O Positive [facility] HCLL OTHER 10/06/2024 5:06 PM CDT 10/06/2024 5:19 PM CDT us Pan Leiva MD LAB BLOOD ORDERABLES Donita l Result [facility] Department [place] [address] [facility] * (ABNORMAL) PTH (10/06/2024 5:06 PM CDT) PTH 11(L) 15 - 65 pg/mL Blood 10/06/2024 5:06 PM CDT 10/06/2024 5:22 PM CDT us Mercedes Montenegro CREATIVE COORDINATOR LAB BLOOD ORDERABLES Fi nal Result [facility] Department [place] [address] * MRI Spine Total Complete W WO [...] it. Electronically signed by: Bhargavi Hall M.D. Pan Leiva MD IMG MRI PROCEDURES Final Result * MRI Brain [...] spine is otherwise normal. Procedure Note Rich Malhtora MD PhD - 10/06/2024 EXAMINATION: XR SPINE [...] Electronically signed by: Rich Malhotra MD, PHD Pan Leiva MD IMG XR PROCEDURES Final R esult * XR Outside Reference (10/06/2024 1:07 PM CDT) Impressions [facility] - 10/06/2024 1:07 PM CDT These images are for Reference purposes only and have not been reviewed by [facility] Radiology. There will be no report generated by a [facility] Radiologist. Narrative [facility]_PACS[facility] - 10/06/2024 1:07 PM CDT EXAMINATION: Images For Reference Purposes Only us Caern Ladd MD IMG XR PROCEDURES Fi nal Result [facility] * CT Body Outside Consult (10/06/2024 12:57 PM CDT) Anatomical Region Laterality Modality Body N/A Computed Tomogra phy 10/06/2024 1:34 PM CDT Impressions 10/06/2024 1:34 PM CDT [...] images may or may not represent the [place] source data set and thus may contain changes that may lower the accuracy of this second-opinion interpretation. Electronically signed by: Rich Malhotra MD, PHD Narrative 10/06/2024 1:34 PM CDT EXAMINATION: RADIOLOGY CONSULTATION ON OUTSIDE IMAGING STUDY STUDY INITIALLY PERFORMED: 08/09/2024 at [facility]. TYPE OF STUDY: Multiple CT images of [...] demonstrate central calcifications in keeping with granulomas. Flare Man noncalcified nodules include an 8 mm left [...] IMAGING STUDY STUDY INITIALLY PERFORMED: 08/09/2024 at [facility]. TYPE OF STUDY: Multiple CT images of [...] demonstrate central calcifications in keeping with granulomas. Flare Man noncalcified nodules include an 8 mm left [...] images may or may not represent the [place] source data set and thus may contain changes that may lower the accuracy of this second-opinion interpretation. Electronically signed by: Rich Malhotra MD, PHD Caren Ladd MD [facility] CT PROCEDURES Fi nal Result * US [...] report of this study generated by a [facility] Radiologist. Electronically signed by: Yaw Tsai M.D. [...] report of this study generated by a [facility] Radiologist. Electronically signed by: Yaw Tsai M.D. Caren Ladd MD [facility] US PROCEDURES Fi nal Result * Neuro [...] images may or may not represent the [place] source data set and thus may contain [...] IMAGING STUDY STUDY INITIALLY PERFORMED: 10/06/2024 at [facility]. TYPE OF STUDY: Multiple CTA images of [...] IMAGING STUDY STUDY INITIALLY PERFORMED: 10/06/2024 at [facility]. TYPE OF STUDY: Multiple CTA images of [...] images may or may not represent the [place] source data set and thus may contain [...] images may or may not represent the [place] source data set and thus may contain [...] IMAGING STUDY STUDY INITIALLY PERFORMED: 10/06/2024 at [facility]. TYPE OF STUDY: Multiple CTA images of [...] IMAGING STUDY STUDY INITIALLY PERFORMED: 10/06/2024 at [facility]. TYPE OF STUDY: Multiple CTA images of [...] images may or may not represent the [place] source data set and thus may contain [...] Panel - Heparin (10/06/2024 11:14 AM CDT) [facility] HEPTEM-CT 183 141 - 215 sec HEPTEM-A5 >59 33 - 51 mm [facility] HEPTEM-A10 >68 44 - 61 mm [facility] HEPTEM-A20 >73 52 - 67 mm [facility] HEPTEM-MCF >75 54 - 69 mm [facility] Blood 10/06/2024 11:1 4 AM CDT 10/06/2024 11:24 AM CDT Pan Leiva MD LAB BLOOD ORDERABLES Edit ed Result - Final Performing Organization Address [facility] Co de Phone Number [facility] [place] [address] * (ABNORMAL) Thromboelastometry Panel - Intrinsic (10/06/2024 11:14 AM CDT) INTEM-CT 194 139 - 205 sec INTEM-A5 65(H) 36 - 54 mm [facility] INTEM-A10 73(H) 46 - 63 mm [facility] INTEM-A20 78(H) 53 - 68 mm [facility] INTEM-MCF 79(H) 55 - 70 mm [facility] INTEM-LI60 99 93 - 100 % [facility] 2 0 - 7 % [facility] Blood 10/06/2024 11:1 4 AM CDT 10/06/2024 11:24 AM CDT Pan Leiva MD LAB BLOOD ORDERABLES Edit ed Result - Final Performing Organization Address [facility] de Phone Number [facility] [place] [address] * Thromboelastometry Panel - Fibrinogen (10/06/2024 11:14 AM CDT) FIBTEM-A5 See Comment 5 - 16 Comment:Credited, laboratory instrument error. FIBTEM-A10 See Comment 6 - 17 [facility] Comment:Credited, laboratory instrument error. FIBTEM-A20 See Comment 6 - 18 [facility] Comment:Credited, laboratory instrument error. FIBTEM-MCF See Comment 9 - 19 [facility] Comment:Credited, laboratory instrument error. Blood 10/06/2024 11:1 4 AM CDT 10/06/2024 11:24 AM CDT Pan Leiva MD LAB BLOOD ORDERABLES Edit ed Result - Final Performing Organization Address City/[facility] Co de Phone Number [facility] Department [place] [address] * (ABNORMAL) Thromboelastometry Panel - Extrinsic (10/06/2024 11:14 AM CDT) Pathologist [facility] EXTEM-CT 72 51 - 73 sec EXTEM-A5 68(H) 33 - 52 mm [facility] EXTEM-A10 76(H) 45 - 62 mm [facility] EXTEM-A20 81(H) 54 - 69 mm [facility] EXTEM-MCF >82 57 - 72 mm [facility] EXTEM-LI60 100 94 - 100 % [facility] 1 0 - 6 % [facility] Blood 10/06/2024 11:1 4 AM CDT 10/06/2024 11:24 AM CDT Pan Leiva MD LAB BLOOD ORDERABLES Edit ed Result - Final Performing Organization Address [facility] Co de Phone Number [facility] Department [place] [address] * (ABNORMAL) Differential, auto (10/06/2024 11:14 AM CDT) Neutrophil abs 10.16(H) 1.50 - 6.50 K/cumm Imm gran abs 0.05 0.00 - 0.10 K/cumm [facility] Lymphocyte abs 1.34 0.80 - 3.30 K/cumm [facility] Monocyte abs 1.35(H) 0.20 - 0.80 K/cumm [facility] Eosinophil abs 0.01 0.00 - 0.50 K/cumm [facility] Basophil abs 0.05 0.00 - 0.10 K/cumm [facility] Neutrophil pct 78.4 % [facility] Comment: Interpretive Data Percent cell count reference ranges are not reported, since discordance with absolute values may lead to misinterpretation of CBC data. Current Interpretive Data was last revised on 2017. Imm gran pct 0.4 % [facility] Comment: Interpretive Data Percent cell count reference ranges are not reported, since discordance with absolute values may lead to misinterpretation of CBC data. Current Interpretive Data was last revised on 2017. Lymphocyte pct 10.3 % [facility] Comment: Interpretive Data Percent cell count reference ranges are not reported, since discordance with absolute values may lead to misinterpretation of CBC data. Current Interpretive Data was last revised on 2017. Monocyte pct 10.4 % [facility] Comment: Interpretive Data Percent cell count reference ranges are not reported, since discordance with absolute values may lead to misinterpretation of CBC data. Current Interpretive Data was last revised on 2017. Eosinophil pct 0.1 % [facility] Comment: Interpretive Data Percent cell count reference ranges are not reported, since discordance with absolute values may lead to misinterpretation of CBC data. Current Interpretive Data was last revised on 2017. Basophil pct 0.4 % [facility] Comment: Interpretive Data Percent cell count reference ranges are not reported, since discordance with absolute values may lead to misinterpretation of CBC data. Current Interpretive Data was last revised on 2017. Blood 10/06/2024 11:1 4 AM CDT 10/06/2024 11:24 AM CDT us Pan Leiva MD LAB BLOOD ORDERABLES Donita sinha Result [facility] Department [place] [address] * (ABNORMAL) CBC with auto differential (10/06/2024 11:14 AM CDT) WBC 12.96(H) 3.80 - 9.90 K/cumm Comment:Code Blue Specimen C ode Blue Specimen Hgb 10.2(L) 13.0 - 17.5 g/dL [facility] Hct 32.2(L) 38.9 - 50.3 % [facility] Plt 607(H) 150 - 400 K/cumm [facility] MPV 8.6(L) 9.1 - 12.3 fL [facility] RBC 4.01(L) 4.30 - 5.80 M/cumm [facility] MCV 80.3(L) 81.3 - 96.4 fL [facility] MCH 25.4(L) 27.1 - 33.3 pg [facility] MCHC 31.7(L) 32.3 - 35.7 g/dL [facility] RDW CV 23.6(H) 11.1 - 14.9 % [facility] RDW SD 67.2(H) 35.7 - 48.1 fL [facility] NRBC abs 0.00 0.00 - 0.01 K/cumm [facility] Blood 10/06/2024 11:1 4 AM CDT 10/06/2024 11:24 AM CDT Pan Leiva MD LAB BLOOD ORDERABLES Donita l Result Performing Organization Address [facility] Co de Phone Number [facility] Department [place] [address] * aPTT (10/06/2024 11:14 AM CDT) [facility] aPTT 32 28 - 38 sec Comment: Code Blue Specimen Interpretive Data Heparin therapeutic range: 66.0 - 100.0 seconds. Range based on correlation with therapeutic heparin activity range of 0.3 - 0.7 Units/mL. Current interpretive data was last revised on 2023. Blood 10/06/2024 11:1 4 AM CDT 10/06/2024 11:24 AM CDT Pan Leiva MD LAB BLOOD ORDERABLES Donita l Result [facility] [place] [address] * (ABNORMAL) Erythrocyte sedimentation rate (10/06/2024 11:14 AM CDT) Erythrocyte sedimentation rate 98(H) 1 - 20 mm/hr Blood 10/06/2024 11:1 4 AM CDT 10/06/2024 11:27 AM CDT Pan Leiva MD LAB BLOOD ORDERABLES Donita l Result Performing Organization Address [facility] [place] [address] * (ABNORMAL) Protime-INR (10/06/2024 11:14 AM CDT) PT 14.6(H) 9.7 - 13.0 sec Comment:Code Blue Specimen INR 1.34(H) 0.90 - 1.20 [facility] Comment: Code Blue Specimen Interpretive data [...] ORDERABLES Donita l Result Performing Organization Address [facility] de Phone Number [facility] [employer] [place] [address] * Type and screen (10/06/2024 11:14 AM CDT) ABO Rh O Positive Thomas, indirect Negative [facility] Blood 10/06/2024 11:1 4 AM CDT 10/06/2024 11:30 AM CDT [facility] - 10/06/2024 12:45 PM CDT Has the patient had Daratumumab or Isatuximab in the past 6 months?->Unknown Pan Leiva MD LAB BLOOD BANK TEST ORDER [place] Final Result Performing Organization Address City/[facility] Co de Phone Number [facility] [employer] [place] [address] * Ethanol (10/06/2024 11:14 AM CDT) Ethanol [...] ORDERABLES Donita l Result Performing Organization Address [facility] Co de Phone Number [facility] [place] [address] * (ABNORMAL) POC Blood Gas and Chemistries, Venous - (10/06/2024 11:13 AM CDT) pH, Dirk POC 7.45(H) 7.32 - 7.43 pCO2, dirk POC 41 40 - 50 mmHg [facility] pO2, dirk POC 50 mmHg [facility] Na, POC 136 135 - 145 mmol/L [facility] K POC 4.0 3.3 - 4.9 mmol/L [facility] Comment: Interpretive Data Not all point of care methods assess for hemolysis. Confirm with instrument and retest K+ if not consistent with clinical signs and symptoms. Current Interpretive Data was last revised on 2023. Cl, POC 105 97 - 110 mmol/L [facility] Ionized Ca, POC 5.02 4.50 - 5.10 mg/dL [facility] Glucose, POC 126 70 - 199 mg/dL [facility] Lactate POC 1.2 0.7 - 2.0 mmol/L [facility] MetHb, Dirk POC 0.8 0.0 - 1.9 % [facility] O2 Sat, Dirk POC (Ramesh) 79 % [facility] Base excess, POC 4.1 mmol/L [facility] HCO3, Dirk POC 28 20 - 30 mmol/L [facility] Hct, POC 32.0(L) 41.4 - 51.6 % [facility] Total Hb, POC 10.6(L) 13.8 - 17.2 g/dL [facility] Blood 10/06/2024 11:1 3 AM CDT 10/06/2024 11:13 AM CDT us Hanane Marquis MD LAB POCT ORDERABLES - DEVICE Fin al Result [facility] Department [place] [address] from Last 3 Months Additional Health Concerns Active Problems Noted Date Diagnosed Date Initial Follow-Up Appointment 10/17/2024 Problems In Home Environment 10/17/2024 Insurance AETNA MEDICARE GOLD AETNA MEDICARE GOLD Advance Directives For more information, please contact: [phone] * Full Code (Latest Code Status on File) Date Activated Date Inactivated Comments 10/06/2024 6:01 PM 10/14/2024 7:56 PM Care Teams Senior Accountant Analyst Relationship Specialty Start Date End Date Willi Wyatt DO [address] [place] [address] PCP - General Internal Medicine 10/06/24 Jose M West MD [address] DIV IM INFECTIOUS DISEASE, [facility] [address] [place] [address] PCP - Home Infusion Attending Infectious Diseases 10/19/24 Sangeeta Wang, EXPLOSIVES MIXER OPERATOR [address] [facility] ([facility]) Mailstop [phone] [place] [address] [facility]OP Outpatient Ballpoint Pen Assembly Machine Operator 10/17/24 Vishal Marie [facility] Pharmacist Pharmacy 10/18/24
--- NOTE | 2024-10-25 20:46 | ED_ITS ---
HPI - Recheck/Abnormal Lab/Rx General Chief Complaint: Recheck/Abnormal Lab/Rx Stated Complaint: Low Potassium Time Seen by Provider: 10/25/24 20:41 Source: patient Mode of arrival: ambulatory Limitations: no limitations History of Present Illness HPI narrative: patient is a 79-year-old male with lower potassium at 2.4 according to his doctor's today. He was sent to the ER for further treatment. He is asymptomatic. 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 MD complaint: abnormal lab ( Hypokalemia at 2.4 today outpatient lab) Initial visit (ago): day(s) ( 1) Initial visit for: abscess ( cervical spine; he was having outpatient labs today) Returns today for: other ( hypokalemia) Symptoms since prior visit: no new symptoms Context: other ( outpatient labs today at a potassium of 2.4 and sent to the ER for treatment) Associated symptoms: none Treatments prior to arrival: other ( routine IV antibiotics for cervical spine through PICC line) Related Data Home Medications ?Medication ?Instructions ?Recorded ?Confirmed ?Last Taken ?Type vit 112-iron 3.33 1 tablet PO BID 09/12/24 09/12/24 Unknown History mg-folate 0.33 [id number]-[id number]-izd-bru chew tablet (Vitafol Gummies) Allergies Allergy/AdvReac Type Severity Reaction Status Date / Time Mdiuekw-SJP-DiB Reductase AdvReac Intermediate Nausea Verified 10/25/24 21:50 Inhibitor (Xlixosb-Krp-Zgh Reductase Inhibitor) Review of Systems 2 Review of Systems: All systems reviewed & are unremarkable except as noted in HPI and below Constitutional: Constitutional: Reports no additional constitutional complaints Eyes: Eyes: Reports no additional eye complaints ENT: Reports system reviewed and no additional complaints, except as documented Cardiovascular: Cardiovascular: Reports no additional cardiovascular complaints Respiratory: Respiratory: Reports no additional respiratory complaints Gastrointestinal: Gastrointestinal: Reports no additional gastrointestinal complaints Genitourinary: Genitourinary: Reports no additional male genitourinary complaints Musculoskeletal: Musculoskeletal: Reports no additional musculoskeletal complaints Integumentary/Breasts: Skin/Breast: Reports system reviewed and no additional complaints, except as docu Neurologic: Reports system reviewed and no additional complaints, except as documented Psychiatric: Psychiatric: Reports no additional psychiatric complaints Endocrine: Endocrine: Reports no additional endocrine complaints Hematologic/Lymphatic: Hematologic/Lymphatic: Reports no additional hematologic/lymphatic complaints Allergic/Immunologic: Allergic/Immunologic: Reports no additional allergic/immunologic complaints PMFSH Past Medical History Medical History Hyponatremia Neck pain Lymph nodes enlarged BMI 27.0-27.9,adult Hypertension entered incorrectly Surgical History Surgical History Status post fusion of wrist Family History Family History Father Cerebrovascular accident Sibling Family history of diabetes mellitus in first degree relative Patient's brother is Mother No problems noted. Other Family history of arthritis Social History Social History Smoking packs per day: 1 Smoking cigarettes per day: 20.0 Years smoked: 50 Smoking pack-years: 50.00 Smoking status: Former smoker Tobacco type: cigarettes Second hand tobacco smoke exposure: Yes Alcohol intake: current Alcohol use details: Social Substance use: never Substance use type: does not use Do You Feel Safe in your Home?: Yes Lack of Transportation: No Lack of Food: Never True Current Housing: I Have Housing Concerned About Future Housing: No Difficulty Paying Gas/Electric Bills: No Difficulty Paying for Meds: No Currently Unemployed: No Education: High School Diploma/GED Difficulty w/ Childcare or Family Care: No Living arrangements: alone Occupation/Education: retired Additional occupation/education comments: [employer] Gender identity (if verbalized by the patient): Male Spiritual care concerns: No Exam 2 Const: General: healthy appearing Nutritional Appearance: well nourished Orientation/consciousness: patient oriented x3 HENMT: Head: normal to inspection Ears: external ears normal F rohit/Nose/Sinus: Normal external nose present Eyes: Conjunctivae: conjunctivae normal Pupils: Equal, round and reactive pupils present EOM: EOMs intact bilaterally Neck: Neck: normal visual inspection Chest: Chest palpation & inspection: normal inspection of the chest Resp: Effort & Inspection: normal respiratory effort and not labored A uscultation: clear to auscultation bilaterally and no crackles Cardio: Rate: regular rate Rhythm: regular rhythm Heart sounds: no murmurs GI: Inspection: non-distended GI Palp: Yes Soft to palpation and No Tenderness to palpation present (GI) Auscultation: normal bowel sounds : General: Yes bladder normal to palpation Back/Spine/Pelvis: Back: no CVA tenderness Skin: General skin exam: normal color Rashes: no rashes Wounds: no wounds Neuro: General: patient oriented x3 Cranial nerves: Yes Nystagmus not present Speech: normal speech Gait exam (Neuro): Normal gait present Extrem: General: normal to inspection Psych: Mental Status: mental status grossly normal Affect: normal affect Attitude: cooperative MDM - Recheck/Abnormal Lab/Rx MDM Narrative Medical decision making narrative: patient is a 79-year-old male with hypokalemia on his labs today. We will recheck labs and treat accordingly. Lab Data Attestation: I reviewed the patient's lab results. 10/25/24 21:02 10/25/24 21:02 Labs: Lab Results 10/25/24 Range/Units 21:02 WBC 4.6 L (4.8-10.8) K/mm3 RBC 3.47 L (4.70-6.10) M/mm3 Hgb 9.4 L (12.4-15.3) g/dL Hct 33.8 L (37.0-46.0) % MCV 97.4 (78.0-102.0) fL MCH 27.1 (27.0-31.0) pg MCHC 27.8 L (32-36) g/dL RDW 24.1 H (11.6-14.4) % Plt Count 388 (150-420) K/mm3 MPV 8.7 (8.7-11.0) fl Immature Gran % (Auto) 0.4 H (0.0-0.0) % Neut % (Auto) 61.7 (50.0-70.0) % Lymph % (Auto) 23.0 (18.0-42.0) % [place] % (Auto) 10.5 (2.0-11.0) % Eos % (Auto) 3.1 (1.0-6.0) % Baso % (Auto) 1.3 H (0.0-1.0) % Lymph # (Auto) 1.05 L (1.10-4.50) K/mm3 [place] # (Auto) 0.48 (0.10-0.90) K/mm3 Eos # (Auto) 0.14 (0.02-0.50) K/mm3 Baso # (Auto) 0.06 (0.00-0.10) K/mm3 Abs Immat Gran (auto) 0.02 H (0.00-0.00) K/mm3 Absolute Neuts (auto) 2.81 (1.70-7.20) K/mm3 Absolute Nucleated RBC 0.00 (0.00-0.00) K/mm3 Nucleated RBC % 0.0 (0-0.0) % Sodium 136 L (137-145) mmol/L Potassium 2.9 L (3.4-5.0) mmol/L Chloride 105 (98-107) mmol/L Carbon Dioxide 26 (22-30) mmol/L Anion Gap 5 (4-12) mmol/L BUN 9 D (9-20) mg/dL Creatinine 0.91 (0.7-1.3) mg/dL Estim Creat Clear Calc Not Reportable Estimated GFR > 60 (59 - ) Glucose 135 H (65-110) mg/dL Calculated Osmolality 282 L (285-295) mOsm/kg Calcium 7.9 L (8.4-10.2) mg/dL Magnesium 2.1 (1.6-2.3) mg/dL Total Bilirubin 0.4 (0.2-1.3) mg/dL AST 35 (17-59) U/L ALT 12 (6-50) U/L Alkaline Phosphatase 102 (38-126) U/L Total Protein 6.5 (6.3-8.2) g/dL Albumin 2.9 L (3.5-5.1) g/dL Discharge Plan Discharge Clinical Impression: Hypokalemia Patient Disposition: Home Condition: Stable Instructions: Hypokalemia (ED) Patient Language: Malawian Prescriptions: No Action Vitafol Gummies 3.33 mg iron- 0.33 mg tablet,chewable 1 tablet PO BID levothyroxine [Synthroid] 137 mcg tablet 137 mcg PO DAILY Qty: 90 2RF cyclobenzaprine 10 mg tablet 10 mg PO TID PRN (Reason: muscle spasm) Qty: 30 2RF Patient Comments: .. lidocaine 4 % adhesive patch,medicated 1 patch topical DAILY PRN (Reason: pain) Qty: 60 0RF Rx Instructions: Apply to affected area for 12 hours, then remove. Follow-up/Referrals: Willi Wyatt DO [Primary Care Provider] - Time of Disposition: 21:35
[2024-10-25 21:06] LABS: Basophils Absolute Auto 0.06 K/mm3 (0.00-0.10); Basophils Percent Auto 1.3 % (0.0-1.0); Eosinophils Absolute Auto 0.14 K/mm3 (0.02-0.50); Eosinophils Percent Auto 3.1 % (1.0-6.0); Hematocrit 33.8 % (37.0-46.0); Hemoglobin 9.4 g/dL (12.4-15.3); Immature Granulocyte Absolute 0.02 K/mm3 (0.00-0.00); Immature Granulocyte Percent A 0.4 % (0.0-0.0); Lymphocytes Absolute Auto 1.05 K/mm3 (1.10-4.50); Mean Corpuscular HGB Conc 27.8 g/dL (32-36); Mean Corpuscular Hemoglobin 27.1 pg (27.0-31.0); Mean Corpuscular Volume 97.4 fL (78.0-102.0); Mean Platelet Volume 8.7 fl (8.7-11.0); Monocytes Absolute Auto 0.48 K/mm3 (0.10-0.90); Monocytes Percent Auto 10.5 % (2.0-11.0); Neutrophils Absolute Auto 2.81 K/mm3 (1.70-7.20); Neutrophils Percent Auto 61.7 % (50.0-70.0); Platelet Count Result 388 K/mm3 (150-420); Red Blood Count 3.47 M/mm3 (4.70-6.10); Red Cell Distribution Width 24.1 % (11.6-14.4); White Blood Count 4.6 K/mm3 (4.8-10.8)
[2024-10-25 21:20] LABS: Alanine Aminotransferase 12 U/L (6-50); Albumin Level 2.9 g/dL (3.5-5.1); Alkaline Phosphatase 102 U/L (38-126); Anion Gap 5 mmol/L (4-12); Aspartate Amino Transferase 35 U/L (17-59); Bilirubin,Total 0.4 mg/dL (0.2-1.3); Blood Urea Nitrogen 9 mg/dL (9-20); Calcium 7.9 mg/dL (8.4-10.2); Carbon Dioxide 26 mmol/L (22-30); Chloride 105 mmol/L (98-107); Estimated Glomerular Filt Rate > 60; Glucose 135 mg/dL (65-110); Magnesium 2.1 mg/dL (1.6-2.3); Osmolality Calculated 282 mOsm/kg (285-295); Potassium 2.9 mmol/L (3.4-5.0); Sodium 136 mmol/L (137-145); Total Protein 6.5 g/dL (6.3-8.2)
--- OUTSIDE RECORDS SUMMARY | 2024-10-25 21:27 | XMS_ITS | CONTINUITY OF CARE DOCUMENT ---
Author Name darci bejarano Address Unknown Organization [facility] Address [address] [place] [address] Phone [phone] Care Team Providers Care Sponge Diver Name Role Phone darci bejarano Unavailable Unavailable
--- OUTSIDE RECORDS SUMMARY | 2024-10-25 21:27 | XMS_ITS | Clinical Summary ---
Author Organization [facility] Address [address] [place] [address] Care Team Providers Care Tool And Die Inspector Name Role Phone Unavailable Primary Care Provider Unavailabl e Source Comments [facility],non-owned Affiliates and Associated Physician Practices is amultiple site organization consisting of ambulatory clinics and hospital sitesin [place], [place], [place] and [place]. This disclosure is being madepursuant to the Care Everywhere program and may not contain all information available regarding this patient. 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 08/11/2024 4:15 PM CDT [facility] Flow Cytometry Results Differential Result Comment Flow Cell Count /uL 6,300 Total Viability % 86.0 Lymphocytes % 92 Dim CD45 Region % 7 Monocytes % 0 Granulocytes % 1 08/11/2024 4:15 PM CDT [facility] Reason for test Localized enlarged lymph nodes 785.6 08/11/2024 4:15 PM CDT [facility] Client Specimen ID # [id number] 08/11/2024 4:15 PM CDT [facility] Number of markers 17 were performed. A-2 Flow CD10 A-4 Flow CD20 A-5 Flow CD23 A-10 Flow CD2 A-11 Flow CD3 A-12 Flow CD4 A-16 Flow CD1a A-3 Flow CD19 A-6 Flow CD34 A-7 Flow CD45 A-13 Flow CD5 A-14 Flow CD7 A-15 Flow CD8 A-17 Flow CD30 A-8 [place]+CD19+ A-9 Lambda+CD19+ 08/11/2024 4:15 PM CDT [facility] Pathologist Location at [facility] 08/11/2024 4:15 PM CDT [facility] PATH[facility] LAB Disclaimer Test performed at [facility], [address] [place] [address], [id number]. *The established laboratory minimum viability is 70%. [...] complexity clinical testing. 08/11/2024 4:15 PM CDT [facility] Embedded Images 4:15 PM CDT [facility] Pathology/Cytolo gy ENTIRE LYMPH NODE / Unknown 08/10/2024 3:12 PM CDT 08/11/2024 2:22 PM CDT Geronimo Franks MD LAB - PATHOLOGY/CYT OLOGY ORDERABLES Final Result [facility] PATH[facility] [address] [place] [address]. [place] [address], [facility] [phone] from Last 3 Months Insurance A[employer]NA MEDICARE ADV SELF PAY NO INSURANCE Member Subscriber Plan / Payer (Ef fective for All Dates) Name:Sabino Pacheco Member ID:Not on file Relation to Subscriber:Not on file Name:JOSEFINASABINO Subscriber ID:Not on file (Home) Address: [address] [place] [id number] Payer ID:Not on file Group ID:Not on file Type:Self Pay Address: [place], [place]
--- OUTSIDE RECORDS SUMMARY | 2024-10-25 21:27 | XMS_ITS ---
Care Plan Created on: October 25, 2024 Eric Pacheco : 1945 Sex: Male Author Organization [facility] Address [address] [place] [address] Care Team Providers Care Floor Inspector Name Role Phone Willi Wyatt DO Primary Care Provider [phone] Sangeeta Wang [facility] Unavailable [phone] Vishal Marie [facility] Unavailable Unavail able Jose M West MD Unavailable [phone] Active Problems Problem Noted Date Diagnosed [...] complication on 10/[address] John in [facility] --Since surgery, he reports his vision [...] 2 weeks after chiropractic adjustment admitted to [facility] and transferred to [facility] on 10/06/24 Found to have extensive destructive [...] by ID to place PICC line for bed bug exterminator IV antibiotics given 10/08-10/09 blood cultures remain [...] 2 weeks after chiropractic adjustment admitted to [facility] and transferred to [facility] on 10/06/24 Found to have extensive destructive [...] by ID to place PICC line for bed bug exterminator IV antibiotics given 10/07-10/09 blood cultures remain [...] 2 weeks after chiropractic adjustment admitted to [facility] and transferred to [facility] on 10/06/24 Found to have extensive destructive [...] 2 weeks after chiropractic adjustment admitted to [facility] and transferred to [facility] on 10/06/24 Found to have extensive destructive [...] less consistent with this. Recommendations: -Agree with MOTOR EQUIPMENT COMMANDING OFFICER dosed cefepime at 2g IV q8h, metronidazole [...] rec for rehab, OT rec for home --[facility] for 21 hours/day --Pt to follow [...] support and son is staying with him, [facility] confirmed to be involved. Interventions Care Plan Interventions Intervention Entry Date Outcome Assess need for higher level of care or SNF/ECF placement. Coordinate placement if appropriate 10/17/2024 Make referral for steel layout worker 10/17/2024 Make referral to [facility] 10/17/2024 [...] Coordinate placement if appropriate; Make referral for steel layout worker; Make referral to [facility]; Identify/assist in obtaining available community resources and make referrals as needed; Assess appropriateness for DME. Contact PCP office to start referral process if skilled need is present; Assess appropriateness for Home Health. Contact PCP office to start referral process if skilled need is present
--- OUTSIDE RECORDS SUMMARY | 2024-10-25 21:27 | XMS_ITS | Encounter Summary ---
Author Organization [facility] Address [address] [place] [address] Care Team Providers Care Economic Adviser Name Role Phone Unavailable Primary Care Provider Unavailabl e Encounter Details Date Type Department Care Team (Late st Contact Info) Description 08/11/2024 Lab Requisition [facility] - Pathology Lab [address] [place] [address] Geronimo Franks MD [address] [place] [id number] Localized enlarged lymph nodes Social History Tobacco Use Types Packs/Day Years Used Date Smoking Tobacco: Never Assessed Sex and Gender Information Value Date Recorded Sex Assigned at Not on file 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 Gender Identity Not on file Sexual Orientation [...] PM CDT) Case Report Flow Cytometry Case: [id number] Authorizing Provider: Geronimo Franks Collected: 08/10/2024 03:12 PM MD Josse Ordering Location: [facility] - Received: 08/11/2024 02:22 PM Pathology Lab Pathologist: Montse Castrejon MD Specimen: Lymph Node 08/11/2024 4:15 PM CDT [facility] Final Diagnosis Lymph node, left axilla, flow cytometric immunophenotypic analysis: - No evidence of non-Hodgkin lymphoma - See interpretation 08/11/2024 4:15 PM [facility] PATH[facility] at 1615 CDT Flow Cytometry Interpretation Viability: 86% B-cells: polytypic, kappa:lambda ratio 2.3:1 T-cells: no immunophenotypic aberrancy detected CD4:CD8 ratio 4.1:1 A cytospin prepared from the flow cytometry specimen has been reviewed for manufacturing quality inspector purposes. 08/11/2024 4:15 PM [facility] Flow Cytometry Results Differential Result Comment Flow Cell Count /uL 6,300 Total Viability % 86.0 Lymphocytes % 92 Dim CD45 Region % 7 Monocytes % 0 Granulocytes % 1 08/11/2024 4:15 PM [facility] Reason for test Localized enlarged lymph nodes 785.6 08/11/2024 4:15 PM [facility] Client Specimen ID # [id number] 08/11/2024 4:15 PM [facility] Number of markers 17 were performed. A-2 Flow CD10 A-4 Flow CD20 A-5 Flow CD23 A-10 Flow CD2 A-11 Flow CD3 A-12 Flow CD4 A-16 Flow CD1a A-3 Flow CD19 A-6 Flow CD34 A-7 Flow CD45 A-13 Flow CD5 A-14 Flow CD7 A-15 Flow CD8 A-17 Flow CD30 A-8 [place]+CD19+ A-9 Lambda+CD19+ 08/11/2024 4:15 PM [facility] Pathologist Location at [facility] 08/11/2024 4:15 PM [facility] Disclaimer Test performed at [facility], [address] [place] [address], [id number]. *The established laboratory minimum viability is 70%. [...] complexity clinical testing. 08/11/2024 4:15 PM CDT [facility] PATH[facility] Embedded Images 4:15 PM CDT [facility] Pathology/Cytolo gy ENTIRE LYMPH NODE / Unknown 08/10/2024 3:12 PM CDT 08/11/2024 2:22 PM CDT Geronimo Franks MD LAB - PATHOLOGY/CYT OLOGY ORDERABLES Final Result Performing Organization Address City/State/[facility] Co de Phone Number [facility] [address] [phone] documented in this encounter Visit Diagnoses Diagnosis Localized enlarged lymph nodes Enlargement of lymph nodes documented in this encounter
--- OUTSIDE RECORDS SUMMARY | 2024-10-25 21:27 | XMS_ITS ---
Author Organization [facility] Address [address] [place] [address] Care Team Providers Care Plastic Bubble Packer Name Role Phone Yoselin, Willi PAYNE Primary Care Provider [phone] Sangeeta Wang [facility] Unavailable [phone] Vishal Marie [facility] Unavailable Unavail able Jose M West MD Unavailable [phone] Anti-Infective Status:Enrolled (Active) Start date:10/18/2024 Enrollment date:10/18/2024 Linked medications:oxacillin sodium,0.9 % sodium chloride (Active) Related program episode:Home Infusion (Active) Overview Cutover complete Case Team Name Relationship Phone Vishal Marie [facility](Responsible Staff) Pharm acist Continued Care and Services Coordination This section includes services coordinated for Anti-Infective. Home Medical Care Name Services Phone [facility] [phone]
--- OUTSIDE RECORDS SUMMARY | 2024-10-25 21:27 | XMS_ITS | Encounter Summary ---
Author Organization [facility] Healthcare Address [address] [place] [address] Care Team Providers Care Clerk Operator Name Role Phone Willi Wyatt Primary Care Provider [phone] Sangeeta Wang [facility] Unavailable [phone] Bernardino Cooper [facility] Unavailable Unavailabl Vishal Starr [facility] Unavailable Unavail able Jose M West MD Unavailable [phone] Reason for Visit * Auth/Cert (Routine) Specialty Diagnoses / Procedures Referred By Contac t Referred To Contact Referral ID Status Reason Start Date Expiration Date Visits Re quested Visits Authorized [id number] 1 1 Encounter Details Date Type Department Care Team (Latest Contact Info) Description 10/15/2024 1:30 PM CDT Home Care Visit [address] [address] [address] [place] [address] Cecilia Tian SN OASIS START OF CARE [...] materials from doctor or pharmacy Sometimes 10/15/2024 [facility] Utilities Answer Date Recorded In the past 12 months has e [employer], gas, oil, or water company threatened to [...] often do you attend chur ch or alevism services? More than 4 times per year [...] any time in the past 12 m [facility], were you homeless or living [...] ADLs and infusion. ASSESSMENT Abnormal assessment findings: Harper collar in place. Patient is allowed to [...] care, labs, dressing changes Other disciplines ordered/recommended: Care Home Supply/HME/equipment needs or issues: none Follow ups [...] patient does not have cognitive impairments, then [id number] would not apply. M1028 - Active Diagnoses Clinician omitted 3- None of the above Change from blank to NA. Patient does not have an active diagnosis of DM OR PVD/PAD documented by the MD or designee on the day of assessment. * Quality Review - Cecilia Tian - 10/15/2024 1:19 PM CDT I have reviewed and agree with all suggested changes to [place] assessment documentation. documented in this encounter Plan [...] -SN OASIS Start o f Care Discipline -Care Home Problems Problem Description Start Date Status Goals Interve ntions Collect Specimen/Lab Draw Disciplines: Care Home Management of specimen samples, including lab draws, stool, urine, sputum & wound cultures 10/15/2024 Active 1 goal linked to scheduled/documen erik intervention Medications Disciplines: Care Home Management of IV Medications 10/15/2024 Active 1 goal linked to scheduled/documen erik intervention 1 problem intervention scheduled/documen erik in this visit IV Therapy-Manageme nt, Education, and Maintenance Disciplines: Care Home IV Management, education, and maintenance for home IV therapy. 10/15/2024 Active 1 goal linked to scheduled/documen erik intervention 2 problem interventions scheduled/documen erik in this visit Pressure Prevention Disciplines: Skilled Disciplines Pressure Prevention 10/15/2024 Active 1 goal linked to scheduled/documen erik intervention 1 goal intervention scheduled/documen erik in this visit Medications Disciplines: Care Home Management of home medications 10/15/2024 Active 1 goal linked to scheduled/documen erik intervention 2 goal interventions scheduled/documen erik in this visit Monitor patient's vital signs every home health visit Disciplines: Skilled Disciplines, SN, PT, OT, HEALTH PROFESSOR, SUPERVISOR SPEECH Monitor patient's vital signs every home health [...] Progressing No Safely perform IV administration and fryer line helper Description: Patient/caregiver will be able to verbalize and demonstrate ability to safely administer IV medication and flushing of line while IV line is in place. IV line will be maintained with no signs or symptoms of infection. IV Therapy-Management, Education, and Maintenance Progressing No Prevent development of pressure injuries Description: buttermaker continuous churn goal: The patient will maintain intact skin [...] visit during episode of care Description: Home it architect to measure vital signs during every home [...] Completed documented in this encounter Care Teams Clerk Operator Relationship Specialty Start Date End Date Willi Wyatt DO [address] [place] [address] PCP - General Internal Medicine 10/06/24 Jose M West MD [address] INFECTIOUS DISE[address], [address] [place] [address] PCP - Home Infusion Attending Infectious Diseases 10/19/24 Sangeeta Wang, [facility] [address] [facility] [place] Mailstop [phone] [place] [address] SHOP Outpatient Ink Maker 10/17/24 Bernardino Cooper, [facility] Pharmacist Pharmacy 10/18/24 10/18/24 Vishal Marie [facility] Pharmacist Pharmacy 10/18/24 documented as of this encounter
--- OUTSIDE RECORDS SUMMARY | 2024-10-25 21:27 | XMS_ITS | Encounter Summary ---
Author Organization [facility] Healthcare Address [address] [place] [address] Care Team Providers Care Photoengraving Printer Name Role Phone Willi Wyatt Primary Care Provider [phone] Sangeeta Wang [facility] Unavailable [phone] Bernardino Cooper [facility] Unavailable Unavailabl Vishal Starr [facility] Unavailable Unavail able Jose M West MD Unavailable [phone] Encounter Details Date Type Department Care Team (Late st Contact Info) Description 10/16/2024 Home Infusion [facility] Home Infusion Therapy [address] [place] [address] Celeste Marie RN Social History Tobacco Use [...] materials from doctor or pharmacy Sometimes 10/15/2024 [facility] Utilities Answer Date Recorded In the past 12 months has e [employer], gas, oil, or water [employer] threatened to shut off services in your [...] often do you attend chur ch or zoroastrian services? More than 4 times per year [...] time in the past 12 m [facility], were you homeless or living in [...] on filedocumented in this encounter Care Teams Photoengraving Printer Relationship Specialty Start Date End Date Rodríguez WyatteDO [address] [place] [address] PCP - General Internal Medicine 10/06/24 Jose M West MD [address] IM INFECTIOUS DISEASE, [address] [place] [address] PCP - Home Infusion Attending Infectious Diseases 10/19/24 Sangeeta Wang, TWILL CUTTER [address] [facility] [place] Mailstop [phone] [place] [address] SHOP Outpatient Inside Sales Advertising Executive 10/17/24 Bernardino Cooper, [facility] Pharmacist Pharmacy 10/18/24 10/18/24 Vishal Marie, [facility] Pharmacist Pharmacy 10/18/24 documented as of this encounter
--- OUTSIDE RECORDS SUMMARY | 2024-10-25 21:27 | XMS_ITS | Encounter Summary ---
Author Organization [facility] Healthcare Address [address] [place] [address] Care Team Providers Care Crane Hooker Name Role Phone Willi Wyatt DO Primary Care Provider [phone] Sangeeta Wang [facility] Unavailable [phone] Bernardino Cooper [facility] Unavailable Unavailabl Vishal Starr [facility] Unavailable Unavail able Jose M West MD Unavailable [phone] Encounter Details Date Type Department Care Team (Latest Contact Info) Description 10/13/2024 Ophth Exam Ophthalmology Gina Pendleton MD [address] [place], [place] [id number] Social History Tobacco Use Types Packs/Day Years [...] doctor or pharmacy Sometimes 10/15/2024 [facility] Utilities Answer Date Recorded In [...] often do you attend chur ch or adventism services? More than 4 times per year 10/17/2024 Do you belong to any clubs o r organizations such as pentecostal groups, unions, fraternal or athletic groups, or [...] any time in the past 12 m [facility], were you homeless or living in a [...] NS Anterior Vitreous Normal Normal Care Teams Crane Hooker Relationship Specialty Start Date End Date Willi Wyatt DO [address] [place] [address] PCP - General Internal Medicine 10/06/24 Jose M West MD [address] IM INFECTIOUS DISEASE, [address] [place] [address] PCP - Home Infusion Attending Infectious Diseases 10/19/24 Sangeeta Wang, LOGISTICS OFFICER [address] [facility] ([facility] Mailstop [phone] [place] [address] SHOP Outpatient Accountant Bookkeeper 10/17/24 Bernardino Cooper, [facility] Pharmacist Pharmacy 10/18/24 10/18/24 Vishal Marie, [facility] Pharmacist Pharmacy 10/18/24 documented as of this encounter
--- OUTSIDE RECORDS SUMMARY | 2024-10-25 21:27 | XMS_ITS ---
Author Organization [facility] Address [address] [place] [address] Care Team Providers Care Edge Bonder Name Role Phone Yoselin Willi PAYNE Primary Care Provider [phone] Sangeeta Wang [facility] Unavailable [phone] Vishal Marie [facility] Unavailable Unavail able Jose M West MD Unavailable [phone] Home Infusion Status:Enrolled (Active) Start date:10/18/2024 Enrollment date:10/18/2024 Related service episodes:Anti-Infective (Active) Overview Cutover complete Roman Villaseñor 10/19/2024 10:52 AM Continued Care and Services Coordination
--- OUTSIDE RECORDS SUMMARY | 2024-10-25 21:27 | XMS_ITS | Clinical Summary ---
Author Organization [facility] Anders mccord [address] Address [address] [place] [address] Care Team Providers Care Baggage Checker Name Role Phone Unavailable Primary Care Provider Unavailabl e Allergies Active Allergy Reactions Criticality Noted Date Comments Rmkemah-Yrp-Rpk Reductase Inhibitors Other (See Comments) 08/26/2024 Gets [...] 09/05/2024 4:15 PM CDT Telephone Check Up [facility] Oncology and Hematology - [place] [address] [place] [address] Juan Antonio Morgan MD Chronic anemia (Primary Dx) 09/05/2024 Orders Only [facility] Oncology and Hematology - [place] [address] [facility] [place] [address] Juan Antonio Morgan MD 09/02/2024 Abstract [facility] Oncology and Hematology - [place] [address] [place] [address] Juan Antonio Morgan MD 08/30/2024 External Device Data [facility] ABSTRACTION Provider, Abstract 08/30/2024 External Device Data [facility] [place] Provider, Abstract 08/30/2024 External Device Data [facility] AB[place] Provider, Abstract 08/30/2024 Orders Only [facility] Oncology and Hematology - [place] [address] [place] [phone] Juan Antonio Morgan MD 08/29/2024 Orders Only [facility] Oncology and Hematology - [place] [address] [place] [id number] Juan Antonio Morgan MD 08/26/2024 2:30 PM CDT Office Visit [facility] Oncology and Hematology - [place] [address] [place] [id number] Juan Antonio Morgan MD Chronic anemia (Primary Dx) 08/26/2024 Orders Only [facility] Oncology and Hematology - [place] [address] [place] [phone] Juan Antonio Morgan MD Essential thrombocytosis (CMS/HCC) [...] Description 11/03/2024 9:45 AM CDT Office Visit [facility] Oncology and Hematology - [place] [address] [facility] [address] [place] [address] Juan Antonio Morgan MD [address] [facility] [address] [place] [address] Health Maintenance Due Date Last [...] lt from Last [address] [facility] Address: [facility] [id number] [place] [address]
--- OUTSIDE RECORDS SUMMARY | 2024-10-25 21:28 | XMS_ITS | Referral Summary ---
Author Organization [facility] al Address [address] [place] [address] Care Team Providers Care Features Reporter Name Role Phone Willi Wyatt Primary Care Provider [phone] Sangeeta Wang COMPOUNDING PHARMACY TECHNICIAN Unavailable [phone] Vishal Marie [facility] Unavailable Unavail able Jose M West MD Unavailable [phone] Encounters Date Type Department Care Team Description 10/25/2024 Documentation [facility] Infectious Diseases [address] [place] [phone] Bar Porter MD 10/25/2024 Home Care Visit [address] [place] [address] Sangeeta Brunson RN SN TRIAGE ENCOUNTER 10/25/2024 1:00 PM CDT Hospital Encounter [facility] [address] [place] [address] 10/25/2024 1:30 PM CDT Home Care Visit [address] [place] [address] Casa Warren RN SN HOME VISIT 10/24/2024 SHOP/CHAP Subsequent Outreach [facility] OP CASE MANAGEMENT [address] [place] [address] Sangeeta Wang LCSW 10/20/2024 Documentation [facility] Infectious Diseases [address] [place] [address] [place] [phone] JackyNhan holguin Jr., RN 10/18/2024 10:00 AM CDT - 10/18/2024 11:59 PM CDT Hospital Encounter [facility] [address] [place] [address] Discharge Disposition: Discharge to home or self care 10/18/2024 Home Infusion [facility] Home Infusion Therapy [address] [place] [address] Bernardino Cooper, [facility] 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) (Primary Dx) 10/18/2024 8:00 AM CDT Home Care Visit [address] [place] [address] Casa Warren RN SN HOME VISIT 10/17/2024 SHOP/CHAP Initial Outreach [facility] OP CASE MANAGEMENT [address] [place] [address] Sangeeta Wang, COMPOUNDING PHARMACY TECHNICIAN 10/17/2024 SHOP/CHAP Initial Eligibility Review [facility] OP CASE MANAGEMENT [address] [place] [address] Sangeeta Wang, COMPOUNDING PHARMACY TECHNICIAN 10/16/2024 Home Infusion [facility] Home Infusion Therapy [address] [place] [address] Celeste Marie RN 10/15/2024 Plan of Care Documentation [address] [place] [address] 10/15/2024 1:30 PM CDT Home Care Visit [address] [place] [address] Cecilia Tian SN OASIS START OF CARE 10/14/2024 Orders Only [facility] Home Care Services [address] [facility] [address] [place] [address] Vanita Hernandez, [facility] 10/06/2024 10:59 AM CDT - 10/14/2024 3:50 PM CDT Hospital Encounter [address] [address] Pan Leiva MD McHale, Matthew Justin, DO Chan, Philip, MD Pallotta, Deshawn Harrison MD Diagnosis unknown (Primary Dx); Closed nondisplaced fracture of first cervical vertebra, unspecified fracture morphology, initial encounter (HCC); Occlusion of left vertebral artery; Paresthesia of bilateral legs; Osteomyelitis of cervical spine (HCC) Discharge Disposition: Discharge to home, home health skilled care 10/13/2024 Ophth Exam Ophthalmology Gina Pendleton MD 10/11/2024 Documentation [facility] Infectious Diseases [address] [facility] [address] [place] [address] Bianca Ceja NP 10/09/2024 Ophth Exam [facility] Ophthalmology [address] [facility] 1st [place] [address] Imani Ventura MD 10/07/2024 1:49 PM CDT Anesthesia Event [facility] Operating Room [address] [place] [address] Alistair Stevenson MD Dippolito, Jenny Irene, NP 10/07/2024 1:30 PM CDT - 10/07/2024 7:05 PM CDT Surgery [facility] Operating Room [address] [place] [address] Deshawn Cornelius MD CERVICAL FUSION - POSTERIOR, [...] a day 3 mL 11/13 Active multivit witqhhjp-aspi-LB-calc ium (THERA-M) 9 mg iron-400 mcg tabletIndications:Vit [...] from refrigerator 3-4 hours before administratio n. 41429 mL 11/21 Active sodium chloride 0.9% flush syringeIndications:Os teomyelitis of vertebra of cervical region (HCC) Infuse 10 mL IV as needed for line care 90138 mL 2024 Active heparin 10 unit/mL syringe flush syringeIndications:Ma intain Patency of Indwelling Vascular Catheter Administer 5 mL (50 Units total) into IV catheter as needed (catheter maintenance) 54369 mL 10/17 Active bisacodyL (DULCOLAX) 10 mg [...] a day 3 mL 10/14 Discontinued multivit hypkidvi-uhhe-DE-calc ium (THERA-M) 9 mg iron-400 mcg tabletIndications:Vit [...] complication on 10/[address] John in [facility] --Since surgery, he reports his vision has [...] 2 weeks after chiropractic adjustment admitted to [facility] and transferred to [facility] on 10/06/24 Found to have extensive [...] by ID to place PICC line for nursing home IV antibiotics given 10/08-10/09 blood cultures remain [...] 2 weeks after chiropractic adjustment admitted to [facility] and transferred to [facility] on 10/06/24 Found to have extensive [...] by ID to place PICC line for nursing home IV antibiotics given 10/07-10/09 blood cultures [...] 2 weeks after chiropractic adjustment admitted to [facility] and transferred to [facility] on 10/06/24 Found to have extensive [...] 2 weeks after chiropractic adjustment admitted to [facility] and transferred to [facility] on 10/06/24 Found to have extensive [...] less consistent with this. Recommendations: -Agree with MAINTENANCE PAINTER APPRENTICE dosed cefepime at 2g IV q8h, metronidazole [...] rec for rehab, OT rec for home --[place] for 21 hours/day --Pt to follow [...] materials from doctor or pharmacy Sometimes 10/15/2024 [facility] Utilities Answer Date Recorded In the past 12 months has th e [employer], gas, oil, or water Suite[employer] threatened to shut off services in your [...] often do you attend chur ch or yarsani services? More than 4 times per year 10/17/2024 Do you belong to any clubs o r organizations such as faith groups, unions, fraternal or athletic groups, or [...] were you homeless or living in a group home (including now)? No 10/17/2024 Personal Safety Answer [...] support and son is staying with him, [facility] confirmed to be involved. Medical Devices Implanted Type Area Furniture Refinisher Device Identifier Shelf Expiration Date Model / Serial / Lot Invictus Oct 3.5x14 Fa Screw Implanted:Qty: 1 on 10/07/2024 by Deshawn Cornelius MD at [facility] Screw N/A: Spine Cervical [employer] 06869-93- 14 / [id number] 14 / [place] Spine Allograft Gel Graft 5cc Bone Demineralized Bone Matrix [id number] - [id number] Implanted:Qty: 1 on 10/07/2024 by Sarah Milligan MD at [facility] N/A: Spine Cervical Ever Spine [id number] 01/15/2027 [id number] / / [id number] Invictus Oct Plate 48mm Implanted:Qty: 1 on 10/07/2024 by Deshawn Cornelius MD at [facility] N/A: Spine Cervical ATEC Spine / / Description:Approved item mi sc code used Invictus Oct Occipital Screw 4.5 X 6 Implanted:Qty: 1 on 10/07/2024 by Deshawn Cornelius MD at [facility] N/A: Spine Cervical [employer] 70617-39- 06 / / Invictus Oct Occipital Screw 4.5 X 8 Implanted:Qty: 1 on 10/07/2024 by Deshawn Cornelius MD at [facility] N/A: Spine Cervical [employer] [id number] 08 / / Invictus Oct Occipital Screw 4.5 X 10 Implanted:Qty: 1 on 10/07/2024 by Deshawn Cornelius MD at [facility] N/A: Spine Cervical [employer] 48831-30- 10 / / Description:Approved misc co de used Invictus Oct Occipital Screw 4.5 X 14 Implanted:Qty: 1 on 10/07/2024 by Deshawn Cornelius MD at [facility] N/A: Spine Cervical [employer] 02294-39- 14 / / Description:Approved mis co de used Invictus Oct Occipital Screw 4.5 X 16 Implanted:Qty: 1 on 10/07/2024 by Deshawn Cornelius MD at [facility] N/A: Spine Cervical [employer] [id number]- 16 / / Description:Approved [facility] co de used [employer] Graft Bone Magnetos 10cc 1-2mm Granules In Moldable Putty [id number] - [id number] Implanted:Qty: 1 on 10/07/2024 by Sarah Milligan MD at [facility] N/A: Spine Cervical [employer] [id number] 02/22/2029 [id number] S / / [id number] Medtronic Inc Infuse 20ga 2x1in Vial Absorbable Syringe Needle Medium Graft 5.6 [id number] - [id number] Implanted:Qty: 1 on 10/07/2024 by Deshawn Cornelius MD at [facility] N/A: Spine Cervical Med[employer] Inc [id number] / / Iinvictus Oct Set Screw Implanted:Qty: 9 on 10/07/2024 by Deshawn Cornelius MD at [facility] N/A: Spine Cervical [employer] [id number] / [id number] / Invictus Oct 3.5x16 Fa Screw Implanted:Qty: 5 on 10/07/2024 by Deshawn Cornelius MD at [facility] N/A: Spine Cervical [employer] 88401-97- 16 / [id number]- 16 / Invictus Oct 3.5x22 Fa Screw Implanted:Qty: 1 on 10/07/2024 by Deshawn Cornelius MD at [facility] N/A: Spine Cervical [employer] [id number]- / [id number]- / Description:Approved items m isc code used Invictus Oct Head To Head Connector 40mm Implanted:Qty: 1 on 10/07/2024 by Deshawn Cornelius MD at [facility] N/A: Spine Cervical [employer] 90537-73 / [id number] / 4.0 Ti Hinged Mono Implanted:Qty: 2 on 10/07/2024 by Deshawn Cornelius MD at [facility] N/A: Spine Cervical ATEC Spine 69774-79- 40 / / Occipital Tulip Implanted:Qty: 2 on 10/07/2024 by Deshawn Cornelius MD at [facility] N/A: Spine Cervical ATEC Spine / / [...] GRAM STAIN Routine 10/07/2024 3:57 PM CDT [place] AN PROCEDURE PLACEHOLDER Routine 10/07/2024 3:38 PM CDT [place] AN PROCEDURE PLACEHOLDER Routine 10/07/2024 3:37 PM CDT [place] AN PROCEDURE PLACEHOLDER Routine 10/07/2024 3:36 PM CDT [place] AN ELECTIVE ENDOTRACHEAL AIRWAY Routine 10/07/2024 3:36 [...] vertebral artery Osteomyelitis of cervical spine (HCC) [place] CRITICAL CARE ILL/INJURED PATIENT INIT 30-74 MIN [...] Results * eGFR (10/25/2024 1:00 PM CDT) [facility] eGFR 87 >=60 mL/min/1. 73 m2 Comment: [...] MD LAB BLOOD ORDERABLES Final Res ult [facility] [place] [address] * Differential, auto (10/25/2024 1:00 PM CDT) Neutrophil abs 2.75 1.50 - 6.50 K/cumm Imm gran abs 0.01 0.00 - 0.10 K/cumm [facility] Lymphocyte abs 1.18 0.80 - 3.30 K/cumm [facility] Monocyte abs 0.47 0.20 - 0.80 K/cumm [facility] Eosinophil abs 0.17 0.00 - 0.50 K/cumm [facility] Basophil abs 0.06 0.00 - 0.10 K/cumm [facility] Neutrophil pct 59.3 % [facility] Comment: Interpretive Data Percent cell count reference ranges are not reported, since discordance with absolute values may lead to misinterpretation of CBC data. Current Interpretive Data was last revised on 2017. Imm gran pct 0.2 % [facility] Comment: Interpretive Data Percent cell count reference ranges are not reported, since discordance with absolute values may lead to misinterpretation of CBC data. Current Interpretive Data was last revised on 2017. Lymphocyte pct 25.4 % [facility] Comment: Interpretive Data Percent cell count reference ranges are not reported, since discordance with absolute values may lead to misinterpretation of CBC data. Current Interpretive Data was last revised on 2017. Monocyte pct 10.1 % [facility] Comment: Interpretive Data Percent cell count reference ranges are not reported, since discordance with absolute values may lead to misinterpretation of CBC data. Current Interpretive Data was last revised on 2017. Eosinophil pct 3.7 % [facility] Comment: Interpretive Data Percent cell count reference ranges are not reported, since discordance with absolute values may lead to misinterpretation of CBC data. Current Interpretive Data was last revised on 2017. Basophil pct 1.3 % [facility] Comment: Interpretive Data Percent cell count reference ranges are not reported, since discordance with absolute values may lead to misinterpretation of CBC data. Current Interpretive Data was last revised on 2017. Blood 10/25/2024 1:00 PM CDT 10/25/2024 6:13 PM CDT Jose M West MD LAB BLOOD ORDERABLES Final Res ult [facility] [place] [address] * Critical Result Callback Chemistry (10/25/2024 1:00 PM CDT) Date Notified 20241025 Time Notified 1902 [facility] TestName Potassium Plas [facility] Called/Read Back Holly REGAN [facility] Credentials RN SHEREEN PANIAGUA Called By radha PANIAGUA Blood 10/25/2024 1:00 PM CDT 10/25/2024 6:16 PM CDT Jose M West MD LAB BLOOD ORDERABLES Final Res ult [facility] [place] [address] * (ABNORMAL) CBC with auto differential (10/25/2024 1:00 PM CDT) WBC 4.64 3.80 - 9.90 K/cumm Hgb 9.2(L) 13.0 - 17.5 g/dL [facility] Hct 31.0(L) 38.9 - 50.3 % [facility] Plt 449(H) 150 - 400 K/cumm [facility] MPV 8.8(L) 9.1 - 12.3 fL [facility] RBC 3.38(L) 4.30 - 5.80 M/cumm [facility] MCV 91.7 81.3 - 96.4 fL [facility] MCH 27.2 27.1 - 33.3 pg [facility] MCHC 29.7(L) 32.3 - 35.7 g/dL [facility] RDW CV 24.3(H) 11.1 - 14.9 % [facility] RDW SD 84.3(H) 35.7 - 48.1 fL [facility] NRBC abs 0.00 0.00 - 0.01 K/cumm [facility] Blood 10/25/2024 1:00 PM CDT 10/25/2024 6:13 PM CDT us Jose M West MD LAB BLOOD ORDERABLES Final Res ult Performing Organization Address City/[facility]/ZIP Co de Phone Number [facility] Department [place] [address] * (ABNORMAL) Erythrocyte sedimentation rate (10/25/2024 1:00 PM CDT) Erythrocyte sedimentation rate 93(H) 1 - 20 mm/hr Blood 10/25/2024 1:00 PM CDT 10/25/2024 6:13 PM CDT Jose M West MD LAB BLOOD ORDERABLES Final Res ult [facility] Department [place] [address] * (ABNORMAL) CRP (acute phase) (10/25/2024 1:00 PM CDT) Pathologist [facility] CRP 18.7(H) <=10.0 mg/L Blood 10/25/2024 1:00 PM CDT 10/25/2024 6:13 PM CDT us Jose M West MD LAB BLOOD ORDERABLES Final Res ult [facility] PANIAGUA [facility] Department [place] [address] * (ABNORMAL) Comprehensive metabolic panel (10/25/2024 1:00 PM CDT) Pathologist [facility] Sodium 139 135 - 145 mmol/L Potassium, pl 2.4(C) 3.3 - 4.9 mmol/L [facility] Chloride 100 97 - 110 mmol/L [facility] CO2 29 22 - 32 mmol/L [facility] Anion gap 10 2 - 15 mmol/L [facility] BUN 8 6 - 25 mg/dL [facility] Creatinine 0.89 0.80 - 1.30 mg/dL [facility] Glucose 145 70 - 199 mg/dL [facility] Comment: Interpretive Data Fasting glucose [...] 2022. Calcium 8.2(L) 8.5 - 10.3 mg/dL [facility] Bilirubin, total 0.2 0.1 - 1.2 mg/dL [facility] Protein, pl 6.7 6.5 - 8.5 g/dL [facility] Albumin 2.8(L) 3.5 - 5.0 g/dL [facility] Alk phos 103 40 - 130 Units/L [facility] ALT 8 7 - 55 Units/L [facility] AST 25 10 - 50 Units/L [facility] Blood 10/25/2024 1:00 PM CDT 10/25/2024 6:13 PM CDT Jose M West MD LAB BLOOD ORDERABLES Final Res ult Performing Organization Address City/[facility]/ZIP Co de Phone Number [facility] Department [place] [address] * eGFR (10/18/2024 10:00 AM CDT) eGFR [...] MD LAB BLOOD ORDERABLES Final Res ult [facility] [place] [address] * (ABNORMAL) Differential, auto (10/18/2024 10:00 AM [...] 2017. Imm gran pct 0.4 % [facility] Comment: Interpretive Data Percent cell count reference ranges are not reported, since discordance with absolute values may lead to misinterpretation of CBC data. Current Interpretive Data was last revised on 2017. Lymphocyte pct 20.9 % [facility] Comment: Interpretive Data Percent cell count reference ranges are not reported, since discordance with absolute values may lead to misinterpretation of CBC data. Current Interpretive Data was last revised on 2017. Monocyte pct 8.0 % [facility] Comment: Interpretive Data Percent cell count reference ranges are not reported, since discordance with absolute values may lead to misinterpretation of CBC data. Current Interpretive Data was last revised on 2017. Eosinophil pct 1.0 % [facility] Comment: Interpretive Data Percent cell count reference ranges are not reported, since discordance with absolute values may lead to misinterpretation of CBC data. Current Interpretive Data was last revised on 2017. Basophil pct 0.7 % [facility] Comment: Interpretive Data Percent cell count reference ranges are not reported, since discordance with absolute values may lead to misinterpretation of CBC data. Current Interpretive Data was last revised on 2017. Blood 10/18/2024 10:0 0 AM CDT 10/18/2024 1:56 PM CDT us Jose M West MD LAB BLOOD ORDERABLES Final Res ult [facility] Department [place] [address] * (ABNORMAL) CBC with auto differential (10/18/2024 10:00 AM CDT) [facility] WBC 9.91(H) 3.80 - 9.90 K/cumm Hgb 8.6(L) 13.0 - 17.5 g/dL [facility] Hct 27.5(L) 38.9 - 50.3 % [facility] Plt 701(H) 150 - 400 K/cumm [facility] MPV 8.8(L) 9.1 - 12.3 fL [facility] RBC 3.24(L) 4.30 - 5.80 M/cumm [facility] MCV 84.9 81.3 - 96.4 fL [facility] MCH 26.5(L) 27.1 - 33.3 pg [facility] MCHC 31.3(L) 32.3 - 35.7 g/dL [facility] RDW CV 24.7(H) 11.1 - 14.9 % [facility] RDW SD 72.7(H) 35.7 - 48.1 fL [facility] NRBC abs 0.00 0.00 - 0.01 K/cumm [facility] Blood 10/18/2024 10:0 0 AM CDT 10/18/2024 1:56 PM CDT us Jose M West MD LAB BLOOD ORDERABLES Final Res ult [facility] Department [place] [address] * (ABNORMAL) Comprehensive metabolic panel (10/18/2024 10:00 AM CDT) Sodium 137 135 - 145 mmol/L Potassium, pl 3.2(L) 3.3 - 4.9 mmol/L [facility] Chloride 97 97 - 110 mmol/L [facility] CO2 28 22 - 32 mmol/L [facility] Anion gap 12 2 - 15 mmol/L [facility] BUN 11 6 - 25 mg/dL [facility] Creatinine 0.95 0.80 - 1.30 mg/dL [facility] Glucose 70 70 - 199 mg/dL [facility] Comment: Interpretive Data Fasting glucose [...] 2022. Calcium 8.5 8.5 - 10.3 mg/dL [facility] Bilirubin, total 0.3 0.1 - 1.2 mg/dL [facility] Protein, pl 7.0 6.5 - 8.5 g/dL [facility] Albumin 2.9(L) 3.5 - 5.0 g/dL [facility] Alk phos 91 40 - 130 Units/L [facility] ALT 10 7 - 55 Units/L [facility] AST 26 10 - 50 Units/L [facility] Blood 10/18/2024 10:0 0 AM CDT 10/18/2024 1:56 PM CDT us Jose M West MD LAB BLOOD ORDERABLES Final Res ult [facility] Department [place] [address] * eGFR (10/13/2024 8:57 PM CDT) Pathologist [facility] eGFR 90 >=60 mL/min/1. 73 m2 Comment: [...] NP LAB BLOOD ORDERABLES Donita sinha Result [facility] Department [place] [address] * (ABNORMAL) CBC without differential (10/13/2024 8:57 PM CDT) WBC 13.11(H) 3.80 - 9.90 K/cumm Hgb 9.0(L) 13.0 - 17.5 g/dL [facility] Hct 28.9(L) 38.9 - 50.3 % [facility] Plt 741(H) 150 - 400 K/cumm [facility] MPV 8.3(L) 9.1 - 12.3 fL [facility] RBC 3.53(L) 4.30 - 5.80 M/cumm [facility] MCV 81.9 81.3 - 96.4 fL [facility] MCH 25.5(L) 27.1 - 33.3 pg [facility] MCHC 31.1(L) 32.3 - 35.7 g/dL [facility] RDW CV 23.1(H) 11.1 - 14.9 % [facility] RDW SD 66.6(H) 35.7 - 48.1 fL [facility] NRBC abs 0.00 0.00 - 0.01 K/cumm [facility] Blood 10/13/2024 8:57 PM CDT 10/13/2024 9:42 PM CDT us Jonathan Alston NP LAB BLOOD ORDERABLES Fi nal Result [facility] Department [place] [address] * (ABNORMAL) Phosphorus (10/13/2024 8:57 PM CDT) [facility] Phosphorus, pl 2.1(L) 2.3 - 4.5 mg/dL Blood 10/13/2024 8:57 PM CDT 10/13/2024 9:43 PM CDT Deshawn Cornelius MD LAB BLOOD ORDERABLES Final Result Performing Organization Address City/[facility]/ZIP Co de Phone Number [facility] [place] [address] * (ABNORMAL) Comprehensive metabolic panel (10/13/2024 8:57 PM CDT) [facility] Sodium 137 135 - 145 mmol/L Potassium, pl 3.8 3.3 - 4.9 mmol/L [facility] Chloride 99 97 - 110 mmol/L [facility] CO2 28 22 - 32 mmol/L [facility] Anion gap 10 2 - 15 mmol/L [facility] BUN 11 6 - 25 mg/dL [facility] Creatinine 0.81 0.80 - 1.30 mg/dL [facility] Glucose 102 70 - 199 mg/dL [facility] Comment: Interpretive Data Fasting glucose [...] Calcium 8.3(L) 8.5 - 10.3 mg/dL [facility] Bilirubin, total 0.3 0.1 - 1.2 mg/dL [facility] Protein, pl 6.7 6.5 - 8.5 g/dL [facility] Albumin 2.7(L) 3.5 - 5.0 g/dL [facility] Alk phos 73 40 - 130 Units/L [facility] ALT 11 7 - 55 Units/L [facility] AST 21 10 - 50 Units/L [facility] Blood 10/13/2024 8:57 PM CDT 10/13/2024 9:43 PM CDT Vanessa Sam NP LAB BLOOD ORDERABLES Donita sinha Result [facility] [place] [address] * eGFR (10/12/2024 9:12 PM CDT) eGFR [...] NP LAB BLOOD ORDERABLES Donita bharath Result [facility] [place] [address] * (ABNORMAL) Differential, auto (10/12/2024 9:12 PM CDT) Neutrophil abs 6.14 1.50 - 6.50 K/cumm Imm gran abs 0.05 0.00 - 0.10 K/cumm [facility] Lymphocyte abs 2.32 0.80 - 3.30 K/cumm [facility] Monocyte abs 0.82(H) 0.20 - 0.80 K/cumm [facility] Eosinophil abs 0.38 0.00 - 0.50 K/cumm [facility] Basophil abs 0.06 0.00 - 0.10 K/cumm [facility] Neutrophil pct 62.9 % [facility] Comment: Interpretive Data Percent cell count reference ranges are not reported, since discordance with absolute values may lead to misinterpretation of CBC data. Current Interpretive Data was last revised on 2017. Imm gran pct 0.5 % [facility] [facility] Comment: Interpretive Data Percent cell count reference ranges are not reported, since discordance with absolute values may lead to misinterpretation of CBC data. Current Interpretive Data was last revised on 2017. Lymphocyte pct 23.7 % [facility] Comment: Interpretive Data Percent cell count reference ranges are not reported, since discordance with absolute values may lead to misinterpretation of CBC data. Current Interpretive Data was last revised on 2017. Monocyte pct 8.4 % [facility] Comment: Interpretive Data Percent cell count reference ranges are not reported, since discordance with absolute values may lead to misinterpretation of CBC data. Current Interpretive Data was last revised on 2017. Eosinophil pct 3.9 % [facility] Comment: Interpretive Data Percent cell count reference ranges are not reported, since discordance with absolute values may lead to misinterpretation of CBC data. Current Interpretive Data was last revised on 2017. Basophil pct 0.6 % [facility] Comment: Interpretive Data Percent cell count reference ranges are not reported, since discordance with absolute values may lead to misinterpretation of CBC data. Current Interpretive Data was last revised on 2017. Blood 10/12/2024 9:12 PM CDT 10/12/2024 11:48 PM CDT us Bianca Ceja TENT WORKER LAB BLOOD ORDERABLES Final Result [facility] [place] [address] * (ABNORMAL) CBC with auto differential (10/12/2024 9:12 PM CDT) WBC 9.66 3.80 - 9.90 K/cumm Hgb 8.7(L) 13.0 - 17.5 g/dL [facility] Hct 28.7(L) 38.9 - 50.3 % [facility] Plt 732(H) 150 - 400 K/cumm [facility] MPV 8.6(L) 9.1 - 12.3 fL [facility] RBC 3.45(L) 4.30 - 5.80 M/cumm [facility] MCV 83.2 81.3 - 96.4 fL [facility] MCH 25.2(L) 27.1 - 33.3 pg [facility] MCHC 30.3(L) 32.3 - 35.7 g/dL [facility] RDW CV 23.0(H) 11.1 - 14.9 % [facility] RDW SD 67.7(H) 35.7 - 48.1 fL [facility] NRBC abs 0.00 0.00 - 0.01 K/cumm [facility] Blood 10/12/2024 9:12 PM CDT 10/12/2024 11:48 PM CDT us Bianca Ceja TENT WORKER LAB BLOOD ORDERABLES Final Result Performing Organization Address [facility]/ZIP Co de Phone Number [facility] [place] [employer] [address] * (ABNORMAL) CBC without differential (10/12/2024 9:12 PM CDT) WBC 9.66 3.80 - 9.90 K/cumm Hgb 8.7(L) 13.0 - 17.5 g/dL [facility] Hct 28.7(L) 38.9 - 50.3 % [facility] Plt 732(H) 150 - 400 K/cumm [facility] MPV 8.6(L) 9.1 - 12.3 fL [facility] RBC 3.45(L) 4.30 - 5.80 M/cumm [facility] MCV 83.2 81.3 - 96.4 fL [facility] MCH 25.2(L) 27.1 - 33.3 pg [facility] MCHC 30.3(L) 32.3 - 35.7 g/dL [facility] RDW CV 23.0(H) 11.1 - 14.9 % [facility] RDW SD 67.7(H) 35.7 - 48.1 fL [facility] NRBC abs 0.00 0.00 - 0.01 K/cumm [facility] Blood 10/12/2024 9:12 PM CDT 10/12/2024 11:45 PM CDT us Jonathan Alston TENT WORKER LAB BLOOD ORDERABLES Fi nal Result Performing Organization Address City/[facility]/ZIP Co de Phone Number [facility] [place] [address] * Phosphorus (10/12/2024 9:12 PM CDT) [facility] Phosphorus, pl 2.3 2.3 - 4.5 mg/dL Blood 10/12/2024 9:12 PM CDT 10/12/2024 11:41 PM CDT Deshawn Cornelius MD LAB BLOOD ORDERABLES Final Result Performing Organization Address City/[facility]/ZIP Co de Phone Number [facility] Department [place] [address] * Magnesium (10/12/2024 9:12 PM CDT) [facility] Magnesium 2.2 1.4 - 2.5 mg/dL Blood 10/12/2024 9:12 PM CDT 10/12/2024 11:41 PM CDT Deshawn Cornelius MD LAB BLOOD ORDERABLES Final Result Performing Organization Address [facility] de Phone Number [facility] Department [place] [address] * (ABNORMAL) Comprehensive metabolic panel (10/12/2024 9:12 PM CDT) [facility] Sodium 135 135 - 145 mmol/L Potassium, pl 3.4 3.3 - 4.9 mmol/L [facility] Chloride 99 97 - 110 mmol/L [facility] CO2 28 22 - 32 mmol/L [facility] Anion gap 8 2 - 15 mmol/L [facility] BUN 10 6 - 25 mg/dL [facility] Creatinine 0.82 0.80 - 1.30 mg/dL [facility] Glucose 75 70 - 199 mg/dL [facility] Comment: Interpretive Data Fasting glucose [...] 7 - 55 Units/L [facility] AST 22 10 - 50 Units/L [facility] Blood 10/12/2024 9:12 PM CDT 10/12/2024 11:41 PM CDT Vanessa Sam NP LAB BLOOD ORDERABLES Donita sinha Result [facility] [place] [address] * eGFR (10/11/2024 8:48 PM CDT) eGFR [...] CDT 10/11/2024 10:09 PM CDT Vanessa Sam TENT WORKER LAB BLOOD ORDERABLES Donita l Result Performing Organization Address City/[facility]/ZIP Co de Phone Number [facility] [place] [address] * (ABNORMAL) CBC without differential (10/11/2024 8:48 PM CDT) WBC 9.10 3.80 - 9.90 K/cumm Hgb 8.3(L) 13.0 - 17.5 g/dL [facility] Hct 27.0(L) 38.9 - 50.3 % [facility] Plt 662(H) 150 - 400 K/cumm [facility] MPV 8.7(L) 9.1 - 12.3 fL [facility] RBC 3.30(L) 4.30 - 5.80 M/cumm [facility] MCV 81.8 81.3 - 96.4 fL [facility] MCH 25.2(L) 27.1 - 33.3 pg [facility] MCHC 30.7(L) 32.3 - 35.7 g/dL [facility] RDW CV 23.0(H) 11.1 - 14.9 % [facility] RDW SD 66.7(H) 35.7 - 48.1 fL [facility] NRBC abs 0.00 0.00 - 0.01 K/cumm [facility] Blood 10/11/2024 8:48 PM CDT 10/11/2024 10:12 PM CDT Jonathan Alston TENT WORKER LAB BLOOD ORDERABLES Fi nal Result Performing Organization Address City/[facility]/ZIP Co de Phone Number [facility] [place] [address] * Phosphorus (10/11/2024 8:48 PM CDT) Pathologist [facility] Phosphorus, pl 2.4 2.3 - 4.5 mg/dL Blood 10/11/2024 8:48 PM CDT 10/11/2024 10:09 PM CDT Deshawn Cornelius MD LAB BLOOD ORDERABLES Final Result Performing Organization Address City/[facility] Co de Phone Number [facility] Department [place] [address] * Magnesium (10/11/2024 8:48 PM CDT) [facility] Magnesium 2.2 1.4 - 2.5 mg/dL Blood 10/11/2024 8:48 PM CDT 10/11/2024 10:09 PM CDT Deshawn Cornelius MD LAB BLOOD ORDERABLES Final Result Performing Organization Address [facility] de Phone Number [facility] Department [place] [address] * (ABNORMAL) Comprehensive metabolic panel (10/11/2024 8:48 PM CDT) [facility] Sodium 135 135 - 145 mmol/L Potassium, pl 3.4 3.3 - 4.9 mmol/L [facility] Chloride 99 97 - 110 mmol/L [facility] CO2 29 22 - 32 mmol/L [facility] Anion gap 7 2 - 15 mmol/L [facility] BUN 10 6 - 25 mg/dL [facility] Creatinine 0.76(L) 0.80 - 1.30 mg/dL [facility] Glucose 87 70 - 199 mg/dL [facility] Comment: Interpretive Data Fasting glucose [...] Calcium 8.3(L) 8.5 - 10.3 mg/dL [facility] Bilirubin, total 0.3 0.1 - 1.2 mg/dL [facility] Protein, pl 6.8 6.5 - 8.5 g/dL [facility] Albumin 2.8(L) 3.5 - 5.0 g/dL [facility] Alk phos 64 40 - 130 Units/L [facility] ALT 10 7 - 55 Units/L [facility] AST 19 10 - 50 Units/L [facility] Blood 10/11/2024 8:48 PM CDT 10/11/2024 10:09 PM CDT Vanessa Sam TENT WORKER LAB BLOOD ORDERABLES Donita sinha Result [facility] Department [place] [address] * XR Abdomen 1 View AP (10/11/2024 [...] it. Electronically signed by: Cata Hope M.D. us Willow Layton TENT WORKER IMG XR PROCEDURES Final Result * eGFR [...] NP LAB BLOOD ORDERABLES Donita l Result [facility] Department [place] [address] * (ABNORMAL) CBC without differential (10/10/2024 10:32 PM CDT) WBC 10.23(H) 3.80 - 9.90 K/cumm Hgb 8.6(L) 13.0 - 17.5 g/dL [facility] Comment:Hemoglobin delta due to surgical procedure. Spoke to Juventino Amaya RN at 0025 - RV Hct 27.8(L) 38.9 - 50.3 % [facility] Plt 638(H) 150 - 400 K/cumm [facility] MPV 8.6(L) 9.1 - 12.3 fL [facility] RBC 3.42(L) 4.30 - 5.80 M/cumm [facility] MCV 81.3 81.3 - 96.4 fL [facility] MCH 25.1(L) 27.1 - 33.3 pg [facility] MCHC 30.9(L) 32.3 - 35.7 g/dL [facility] RDW CV 23.1(H) 11.1 - 14.9 % [facility] RDW SD 66.2(H) 35.7 - 48.1 fL [facility] NRBC abs 0.00 0.00 - 0.01 K/cumm [facility] Blood 10/10/2024 10:3 2 PM CDT 10/10/2024 11:53 PM CDT us Jonathan Alston NP LAB BLOOD ORDERABLES Ed ited Result - Final Performing Organization Address City/[facility]/ZIP Co de Phone Number [facility] Department [place] [address] * Phosphorus (10/10/2024 10:32 PM CDT) Pathologist [facility] Phosphorus, pl 2.4 2.3 - 4.5 mg/dL Blood 10/10/2024 10:3 2 PM CDT 10/10/2024 11:41 PM CDT us Deshawn Cornelius MD LAB BLOOD ORDERABLES Final Result [facility] [place] [address] * Magnesium (10/10/2024 10:32 PM CDT) Magnesium 2.1 1.4 - 2.5 mg/dL Blood 10/10/2024 10:3 2 PM CDT 10/10/2024 11:41 PM CDT Deshawn Cornelius MD LAB BLOOD ORDERABLES Final Result [facility] [place] [address] * (ABNORMAL) Comprehensive metabolic panel (10/10/2024 10:32 PM CDT) Pathologist [facility] Sodium 133(L) 135 - 145 mmol/L Potassium, pl 3.6 3.3 - 4.9 mmol/L [facility] Chloride 101 97 - 110 mmol/L [facility] CO2 28 22 - 32 mmol/L [facility] Anion gap 4 2 - 15 mmol/L [facility] BUN 11 6 - 25 mg/dL [facility] Creatinine 0.73(L) 0.80 - 1.30 mg/dL [facility] Glucose 91 70 - 199 mg/dL [facility] Comment: Interpretive Data Fasting glucose [...] 2022. Calcium 8.3(L) 8.5 - 10.3 mg/dL [facility] Bilirubin, total 0.3 0.1 - 1.2 mg/dL [facility] Protein, pl 6.8 6.5 - 8.5 g/dL [facility] Albumin 3.0(L) 3.5 - 5.0 g/dL [facility] Alk phos 65 40 - 130 Units/L [facility] ALT 9 7 - 55 Units/L [facility] AST 21 10 - 50 Units/L [facility] Blood 10/10/2024 10:3 2 PM CDT 10/10/2024 11:41 PM CDT Vanessa Sam TENT WORKER LAB BLOOD ORDERABLES Donita l Result Performing Organization Address [facility] Co de Phone Number [facility] Department [place] [address] * (ABNORMAL) CBC without differential (10/10/2024 3:25 PM CDT) WBC 6.06 3.80 - 9.90 K/cumm Hgb 12.6(L) 13.0 - 17.5 g/dL [facility] Hct 40.9 38.9 - 50.3 % [facility] Plt 478(H) 150 - 400 K/cumm [facility] MPV 8.7(L) 9.1 - 12.3 fL [facility] RBC 5.03 4.30 - 5.80 M/cumm [facility] MCV 81.3 81.3 - 96.4 fL [facility] MCH 25.0(L) 27.1 - 33.3 pg [facility] MCHC 30.8(L) 32.3 - 35.7 g/dL [facility] RDW CV 22.8(H) 11.1 - 14.9 % [facility] RDW SD 66.7(H) 35.7 - 48.1 fL [facility] NRBC abs 0.00 0.00 - 0.01 K/cumm [facility] Blood 10/10/2024 3:25 PM CDT 10/10/2024 3:57 PM CDT Edie Licona TENT WORKER LAB BLOOD ORDERABLES Donita l Result Performing Organization Address [facility]/ZIP Co de Phone Number [facility] Department [place] [address] * Vancomycin level trough Please draw vanc trough 30 minutes before the 4th dose (10/10/2024 3:25 PM CDT) Vancomycin trough 16.3 10.0 - 20.0 mcg/mL Blood 10/10/2024 3:25 PM CDT 10/10/2024 3:39 PM CDT Narrative [facility] - 10/10/2024 4:10 PM CDT Please draw vanc trough 30 minutes before the 4th dose us Bianca Ceja TENT WORKER LAB BLOOD ORDERABLES Final Result [facility] Department [place] [address] * X-ray cervical spine 2 or 3 [...] NP LAB BLOOD ORDERABLES Donita sinha Result [facility] [place] [address] * (ABNORMAL) CBC without differential (10/09/2024 8:59 PM CDT) Pathologist [facility] WBC 13.71(H) 3.80 - 9.90 K/cumm Hgb 8.9(L) 13.0 - 17.5 g/dL [facility] Hct 28.6(L) 38.9 - 50.3 % [facility] Plt 658(H) 150 - 400 K/cumm [facility] MPV 8.4(L) 9.1 - 12.3 fL [facility] RBC 3.48(L) 4.30 - 5.80 M/cumm [facility] MCV 82.2 81.3 - 96.4 fL [facility] MCH 25.6(L) 27.1 - 33.3 pg [facility] MCHC 31.1(L) 32.3 - 35.7 g/dL [facility] RDW CV 23.1(H) 11.1 - 14.9 % [facility] RDW SD 66.5(H) 35.7 - 48.1 fL [facility] NRBC abs 0.00 0.00 - 0.01 K/cumm [facility] Blood 10/09/2024 8:59 PM CDT 10/09/2024 9:34 PM CDT Edie Licona TENT WORKER LAB BLOOD ORDERABLES Donita sinha Result [facility] Department [place] [address] * (ABNORMAL) Phosphorus (10/09/2024 8:59 PM CDT) Pathologist [facility] Phosphorus, pl 2.0(L) 2.3 - 4.5 mg/dL Blood 10/09/2024 8:59 PM CDT 10/09/2024 9:33 PM CDT Deshawn Cornelius MD LAB BLOOD ORDERABLES Final Result [facility] Department [place] [address] * Magnesium (10/09/2024 8:59 PM CDT) [facility] Magnesium 2.2 1.4 - 2.5 mg/dL Blood 10/09/2024 8:59 PM CDT 10/09/2024 9:33 PM CDT Deshawn Cornelius MD LAB BLOOD ORDERABLES Final Result Performing Organization Address [facility] Co de Phone Number [facility] Department [place] [address] * (ABNORMAL) Comprehensive metabolic panel (10/09/2024 8:59 PM CDT) [facility] Sodium 136 135 - 145 mmol/L Potassium, pl 3.9 3.3 - 4.9 mmol/L [facility] Chloride 102 97 - 110 mmol/L [facility] CO2 27 22 - 32 mmol/L [facility] Anion gap 7 2 - 15 mmol/L [facility] BUN 13 6 - 25 mg/dL [facility] Creatinine 0.75(L) 0.80 - 1.30 mg/dL [facility] Glucose 105 70 - 199 mg/dL [facility] Comment: Interpretive Data Fasting glucose [...] 2022. Calcium 8.5 8.5 - 10.3 mg/dL [facility] Bilirubin, total 0.2 0.1 - 1.2 mg/dL [facility] Protein, pl 7.2 6.5 - 8.5 g/dL [facility] Albumin 2.7(L) 3.5 - 5.0 g/dL [facility] Alk phos 66 40 - 130 Units/L [facility] ALT 10 7 - 55 Units/L [facility] AST 17 10 - 50 Units/L [facility] Blood 10/09/2024 8:59 PM CDT 10/09/2024 9:33 PM CDT Vanessa Sam TENT WORKER LAB BLOOD ORDERABLES Donita l Result [facility] Department [place] [address] * POCT glucose (10/09/2024 8:23 PM CDT) Pathologist [facility] Glucose, POC 122 70 - 199 mg/dL Blood 10/09/2024 8:23 PM CDT 10/09/2024 8:23 PM CDT Deshawn Cornelius MD LAB POCT ORDERABLES - DEVICE Final Result Performing Organization Address City/[facility]/ZIP Co de Phone Number [facility] [place] [address] * HIV 1/2 Antibody plus p24 Antigen Blood (10/09/2024 3:30 PM CDT) HIV 1/2 ab + p24 ag Nonreactive Nonreactive Comment:Nonreactive for HIV- 1 antigen and HIV-1/HIV-2 antibodies. No laboratory evidence of HIV infection. If acute HIV infection is suspected, consider testing for HIV-1 RNA. Current interpretive data was last revised on 22. Blood 10/09/2024 3:30 PM CDT 10/09/2024 3:58 PM CDT [facility]CRO[facility] - GENERA L ORDERABLES Final Result Performing Organization Address [facility] de Phone Number [facility] [place] [employer] [address] * Hepatitis C antibody Blood (10/09/2024 3:30 PM CDT) Hep C Ab Nonreactive Nonreactive Comment:Antibodies to HCV no t detected. Does NOT exclude the possibility of recent exposure to HCV. Current interpretive data was last revised on 22 Blood 10/09/2024 3:30 PM CDT 10/09/2024 3:58 PM CDT Vanessa Savi Cecy NP LAB MICROBIOLOGY - GENERA L ORDERABLES Final Result Performing Organization Address [facility] de Phone Number [facility] [place] [employer] [address] * Hepatitis B core antibody, total Blood (10/09/2024 3:30 PM CDT) Pathologist [facility] Hep B core IgG/IgM Nonreactive Nonreactive Blood 10/09/2024 3:30 PM CDT 10/09/2024 3:58 PM CDT [facility] NP LAB MICROBIOLOGY - GENERA L ORDERABLES Final Result Performing Organization Address [facility] de Phone Number SHEREEN [facility] [place] [address] * Hepatitis B surface antibody (immune status) Blood (10/09/2024 3:30 PM CDT) Pathologist [facility] HBsAb (immune status) Nonreactive Comment:This result is consi stent with a lack of immunity to Hepatitis B Virus when used in the setting of routine screening. Current interpretative data was last revised on 22 Blood 10/09/2024 3:30 PM CDT 10/09/2024 3:58 PM CDT Vanessa Sam LAB MICROBIOLOGY - GENERA L ORDERABLES Final Result Performing Organization Address City/[facility] Co de Phone Number [facility] [place] [address] * Hepatitis B Surface Antigen Blood (10/09/2024 3:30 PM CDT) HepBsAg Nonreactive Nonreactive Blood 10/09/2024 3:30 PM CDT 10/09/2024 3:58 PM CDT [facility] LAB MICROBIOLOGY - GENERA L ORDERABLES Final Result Performing Organization Address [facility] de Phone Number [facility] [place] [address] * Blood culture Blood Antecubital, right (10/09/2024 10:05 AM CDT) Report Final Report: No growth Blood (Antecubital, right) 10/09/2024 10:05 AM CDT 10/09/2024 12:24 PM CDT Narrative [facility] - 10/13/2024 4:00 PM CDT Received only [...] performance characteristics have been verified by the [facility] Microbiology Laboratory. For questions about this culture, contact the Microbiology Laboratory at [phone]. Interpretive data was last revised on 24. Deshawn Cornelius MD LAB MICROBIOLOGY - G ENERAL ORDERABLES Final Result [facility] [place] [address] * Blood culture Blood (10/09/2024 10:05 AM CDT) Report Final Report: No growth Blood 10/09/2024 10:0 5 AM CDT 10/09/2024 12:24 PM CDT Narrative [facility] - 10/13/2024 4:00 PM CDT Collection->Peripheral 1. [...] performance characteristics have been verified by the [facility] Microbiology Laboratory. For questions about this culture, contact the Microbiology Laboratory at [phone]. Interpretive data was last revised on 24. us Deshawn Cornelius MD LAB MICROBIOLOGY - G ENERAL ORDERABLES Final Result Performing Organization Address [facility] Co de Phone Number [facility] [place] [address] * eGFR (10/08/2024 9:09 PM CDT) Pathologist [facility] eGFR >90 >=60 mL/min/1. 73 m2 Comment: [...] CDT 10/08/2024 9:43 PM CDT Edie Licona TENT WORKER LAB BLOOD ORDERABLES Donita l Result Performing Organization Address City/[facility]/ZIP Co de Phone Number [facility] [place] [address] * (ABNORMAL) CBC without differential (10/08/2024 9:09 PM CDT) Pathologist [facility] WBC 21.01(H) 3.80 - 9.90 K/cumm Hgb 9.0(L) 13.0 - 17.5 g/dL [facility] Hct 28.7(L) 38.9 - 50.3 % [facility] Plt 737(H) 150 - 400 K/cumm [facility] MPV 8.9(L) 9.1 - 12.3 fL [facility] RBC 3.55(L) 4.30 - 5.80 M/cumm [facility] MCV 80.8(L) 81.3 - 96.4 fL [facility] MCH 25.4(L) 27.1 - 33.3 pg [facility] MCHC 31.4(L) 32.3 - 35.7 g/dL [facility] RDW CV 23.4(H) 11.1 - 14.9 % [facility] RDW SD 65.5(H) 35.7 - 48.1 fL [facility] NRBC abs 0.00 0.00 - 0.01 K/cumm [facility] Blood 10/08/2024 9:09 PM CDT 10/08/2024 9:44 PM CDT us Edie Licona TENT WORKER LAB BLOOD ORDERABLES Donita l Result [facility] [place] [address] * Phosphorus (10/08/2024 9:09 PM CDT) Phosphorus, pl 2.5 2.3 - 4.5 mg/dL Blood 10/08/2024 9:09 PM CDT 10/08/2024 9:43 PM CDT us Deshawn Cornelius MD LAB BLOOD ORDERABLES Final Result [facility] [place] [address] * Magnesium (10/08/2024 9:09 PM CDT) Magnesium 2.4 1.4 - 2.5 mg/dL Blood 10/08/2024 9:09 PM CDT 10/08/2024 9:43 PM CDT Deshawn Cornelius MD LAB BLOOD ORDERABLES Final Result [facility] [place] [address] * (ABNORMAL) Basic metabolic panel (10/08/2024 9:09 PM CDT) [facility] Sodium 133(L) 135 - 145 mmol/L Potassium, pl 4.0 3.3 - 4.9 mmol/L [facility] Chloride 102 97 - 110 mmol/L [facility] CO2 27 22 - 32 mmol/L [facility] Anion gap 4 2 - 15 mmol/L [facility] BUN 17 6 - 25 mg/dL [facility] Creatinine 0.71(L) 0.80 - 1.30 mg/dL [facility] Glucose 124 70 - 199 mg/dL [facility] Comment: Interpretive Data Fasting glucose [...] 2022. Calcium 8.8 8.5 - 10.3 mg/dL [facility] Blood 10/08/2024 9:09 PM CDT 10/08/2024 9:43 PM CDT us Edie Licona NP LAB BLOOD ORDERABLES Donita l Result Performing Organization Address [facility]/ZIP Co de Phone Number [facility] [place] [address] * Vancomycin level trough Draw trough 30 minutes prior to 4th dose. (10/08/2024 2:34 PM CDT) Vancomycin trough 12.6 10.0 - 20.0 mcg/mL Blood 10/08/2024 2:34 PM CDT 10/08/2024 3:06 PM CDT Narrative SHEREEN PANIAGUA - 10/08/2024 3:35 PM CDT Draw trough 30 minutes prior to 4th dose. us Deshawn Cornelius MD LAB BLOOD ORDERABLES Final Result SH[facility]EN [facility] Department [place] [address] * XR Spine Cervical 2 or 3 [...] signed by: Yaw Leigh D.O. Edie Licona TENT WORKER IMG XR PROCEDURES Final R esult * [...] Ayaka auris DNA Not Detected Not Detected [facility] Comment: Interpretive Data Testing performed by [facility] Molecular Infectious Disease Laboratory using the Doron aga 6800 Ayaka auris assay. This assay detects DNA from Ayaka auris using Real-Time PCR. This assay is laboratory developed and is not cleared by the [place] Food and Drug Administration. The performance characteristics have been verified by the [facility] Molecular Infectious Disease Laboratory. Axilla/Groin 10/08/2024 10:2 1 AM CDT 10/08/2024 11:28 AM CDT Fela REGAN [facility] - 10/09/2024 12:15 AM CDT Order placed by [facility] due to ring surveillance. us Instant Order Generic Provider LAB MICROBIOLOGY - GENERAL ORDERABLES Final Result [facility] Department [place] [address] [facility] * Histoplasma Antigen Urine (10/08/2024 10:21 AM CDT) Histo Ag Ur result None Detected None Detected Histo Ag Ur interp Negative Negative [facility] Comment: Result Interpretation: Reference interval: None Detected Results reported as ng/mL in 0.20 - 20.00 ng/mL range Results above 20.00 ng/mL are reported as 'Positive, Above the Limit of Quantification' Testing Performed by: [facility], [address] [place] [address] [place] [address]. This test was developed and its performance characteristics determined by [facility]. It has not been cleared or approved by the FDA; however, FDA clearance or approval is not currently required for clinical use. The results are not intended to be used as the sole means for clinical diagnosis or patient management decisions. Interpretative data updated 07/23/2020 Urine 10/08/2024 10:2 1 AM CDT 10/08/2024 12:32 PM CDT Deshawn Cornelius MD LAB MICROBIOLOGY - [facility] ORDERABLES Final Result Performing Organization Address [facility] Co de Phone Number [facility] Department [place] [address] * Blood culture Blood (10/08/2024 10:21 AM CDT) Report Final Report: No growth Blood 10/08/2024 10:2 1 AM CDT 10/08/2024 11:24 AM CDT Narrative [facility] - 10/12/2024 12:00 PM CDT Collection->Peripheral [...] performance characteristics have been verified by the [facility] Microbiology Laboratory. For questions about this culture, contact the Microbiology Laboratory at [phone]. Interpretive data was last revised on 24. Deshawn Cornelius MD LAB MICROBIOLOGY - G ENERAL ORDERABLES Final Result [facility] Department [place] [address] * Critical Care (10/08/2024 7:37 AM CDT) [...] plan with the ICU team and other medical/home performance consultant staff, making frequent assessments and decisions [...] Mitch S. Glazer, M.D. us Edie Licona TENT WORKER IMG XR PROCEDURES Final R esult * (ABNORMAL) Urinalysis reflex to microscopic (10/07/2024 8:08 PM CDT) Color, ur Straw Yellow Clarity, ur Clear Clear [facility] Specific gravity, ur 1.026 1.003 - 1.030 [facility] pH, urine 6.0 [facility] Comment: Interpretive Data U rine pH is affected by diet, medications, systemic acid-base disturbances, and renal tubular function. pH may affect urinary stone formation. For example, urine pH below 6.0 may help reduce the tendency for calcium phosphate stones and pH greater than 6.0 may reduce the tendency for uric acid stone formation. Source: [facility] [employer] Current Interpretive Data was last revised on 2017 Protein, ur ql 1+(A) Negative [facility] Glucose, ur ql Negative Negative [facility] Ketones, ur 1+(A) Negative [facility] [place] Bilirubin, ur Negative Negative [facility] Blood, ur Trace(A) Negative [facility] Urobilinogen, ur <2.0 <2.0 mg/dL [facility] Nitrite, ur Negative Negative [facility] Leukocyte esterase, ur Negative Negative [facility] UA reflex comment Reflex to microscopic UA will be performed. [facility] Urine 10/07/2024 8:08 PM CDT 10/07/2024 9:40 PM CDT us Chong Hutchinson TENT WORKER LAB URINE ORDERABLES Fi nal Result [facility] Department [place] [address] * (ABNORMAL) Urinalysis, microscopic only (10/07/2024 8:08 PM CDT) WBC, ur 6-10(A) 0 - 5 /HPF RBC, ur 21-50(A) 0 - 2 /HPF [facility] Epithelial cells, squamous, ur 1-5 0 - 5 /HPF [facility] Bacteria, ur Trace(A) [facility] Mucous, ur Present(A) [facility] Uric acid crystals, ur Trace(A) [facility] Hyaline casts, ur 1-5 0 - 10 /LPF [facility] [place] Urine 10/07/2024 8:08 PM CDT 10/07/2024 9:40 PM CDT us Chong Hutchinsno TENT WORKER LAB URINE ORDERABLES Fi nal Result [facility] [place] [address] * Critical Care (10/07/2024 7:38 PM CDT) [...] plan with the ICU team and other medical/home performance consultant staff, making frequent assessments and decisions [...] - DEVICE Final Result Performing Organization Address [facility] de Phone Number SHEREEN [facility] [place] [address] * Q fever ab w rflx to immunofluorescence Blood (10/07/2024 7:02 PM CDT) Pathologist [facility] Q fever ab scrn w titer rflx ser Negative Negative [facility] Comment: No antibodies to Q Fever (Coxiella burnetii) detected. Repeat testing on a new sample collected in 2-3 weeks if acute Q Fever is suspected. ADDITIONAL INFORMATION This test was developed and its performance characteristics determined by [facility] in a manner consistent with CLIA requirements. This test has not been cleared or approved by the [place].S. Food and Drug Administration. Test Performed by: [facility] [place] [address] Film Splicer: Leia Ocsaio Ph.D.; CLIA# [id number] Blood 10/07/2024 7:02 PM CDT 10/07/2024 7:57 PM CDT us Kelli Landry MD LAB MICROBIOLOGY - GENE RAL ORDERABLES Final Result Performing Organization Address [facility] de Phone Number [facility] [place] [address] [facility] * Histoplasma Antibody Blood (10/07/2024 7:02 PM CDT) Pathologist [facility] Histoplasma Ab, yeast CF Negative Negative [facility] Histoplasma Ab, Immunodiffusion Negative Negative [facility] Comment: A negative complement fixation and immunodiffusion (CF/ID) result does not exclude the diagnosis of histoplasmosis. Repeat testing by CF/ID in 1-2 weeks if clinically indicated. Test Performed by: [facility] [address] [place] [address] Film Splicer: Leia Ocasio Ph.D.; CLIA# [id number] Blood 10/07/2024 7:02 PM CDT 10/07/2024 9:15 PM CDT us Kelli Landry MD LAB MICROBIOLOGY - GENE RAL ORDERABLES Final Result [facility] [place] [address] [facility] * Potassium, whole blood (10/07/2024 7:02 PM CDT) [facility] Potassium, bld 4.4 3.3 - 4.9 mmol/L Blood 10/07/2024 7:02 PM CDT 10/07/2024 7:10 PM CDT us Chong Hutchinson NP LAB BLOOD ORDERABLES Fi nal Result Performing Organization Address City/[facility] Co de Phone Number [facility] [place] [address] * Calcium, ionized, whole blood (10/07/2024 7:02 PM CDT) [facility] Ca, ionized, bld 5.05 4.50 - 5.10 mg/dL Blood 10/07/2024 7:02 PM CDT 10/07/2024 7:10 PM CDT Chong Hutchinson NP LAB BLOOD ORDERABLES Fi nal Result Performing Organization Address City/[facility]/ZIP Co de Phone Number [facility] [place] [address] * eGFR (10/07/2024 7:02 PM CDT) eGFR [...] 10/07/2024 7:32 PM CDT us Chong Hutchinson TENT WORKER LAB BLOOD ORDERABLES Fi nal Result Performing Organization Address City/[facility]/ZIP Co de Phone Number [facility] [place] [address] * (ABNORMAL) Lactate, whole blood (10/07/2024 7:02 PM CDT) Lactate, bld 0.5(L) 0.7 - 2.0 mmol/L Comment:REVIEWED Blood 10/07/2024 7:02 PM CDT 10/07/2024 7:10 PM CDT us Chong Hutchinson TENT WORKER LAB BLOOD ORDERABLES Fi nal Result [facility] [place] [address] * aPTT (10/07/2024 7:02 PM CDT) aPTT [...] ORDERABLES Fi nal Result Performing Organization Address [facility] Co de Phone Number [facility] [place] [address] * (ABNORMAL) Protime-INR (10/07/2024 7:02 PM CDT) Pathologist [facility] PT 15.0(H) 9.7 - 13.0 sec INR 1.38(H) 0.90 - 1.20 [facility] Comment: Interpretive data Oral anticoagulant [...] ORDERABLES Fi nal Result Performing Organization Address [facility] Co de Phone Number [facility] [place] [address] * (ABNORMAL) CBC without differential (10/07/2024 7:02 PM CDT) WBC 14.98(H) 3.80 - 9.90 K/cumm Hgb 9.0(L) 13.0 - 17.5 g/dL [facility] Hct 29.1(L) 38.9 - 50.3 % [facility] Plt 594(H) 150 - 400 K/cumm [facility] MPV 8.7(L) 9.1 - 12.3 fL [facility] RBC 3.56(L) 4.30 - 5.80 M/cumm [facility] MCV 81.7 81.3 - 96.4 fL [facility] MCH 25.3(L) 27.1 - 33.3 pg [facility] MCHC 30.9(L) 32.3 - 35.7 g/dL [facility] RDW CV 23.5(H) 11.1 - 14.9 % [facility] RDW SD 68.2(H) 35.7 - 48.1 fL [facility] NRBC abs 0.00 0.00 - 0.01 K/cumm [facility] Blood 10/07/2024 7:02 PM CDT 10/07/2024 7:32 PM CDT us Chong Hutchinson TENT WORKER LAB BLOOD ORDERABLES Fi nal Result [facility] [place] [address] * Phosphorus (10/07/2024 7:02 PM CDT) Phosphorus, pl 3.7 2.3 - 4.5 mg/dL Blood 10/07/2024 7:02 PM CDT 10/07/2024 7:32 PM CDT Chong Hutchinson TENT WORKER LAB BLOOD ORDERABLES Fi nal Result [facility] [place] [address] * Magnesium (10/07/2024 7:02 PM CDT) Pathologist [facility] Magnesium 2.1 1.4 - 2.5 mg/dL Blood 10/07/2024 7:02 PM CDT 10/07/2024 7:32 PM CDT us Chong Hutchinson TENT WORKER LAB BLOOD ORDERABLES Fi nal Result [facility] Department [place] [address] * (ABNORMAL) Basic metabolic panel (10/07/2024 7:02 PM CDT) [facility] Sodium 136 135 - 145 mmol/L Potassium, pl 4.3 3.3 - 4.9 mmol/L [facility] Chloride 103 97 - 110 mmol/L [facility] CO2 23 22 - 32 mmol/L [facility] Anion gap 10 2 - 15 mmol/L [facility] BUN 14 6 - 25 mg/dL [facility] Creatinine 0.71(L) 0.80 - 1.30 mg/dL [facility] Glucose 125 70 - 199 mg/dL [facility] Comment: Interpretive Data Fasting glucose [...] 2022. Calcium 8.3(L) 8.5 - 10.3 mg/dL [facility] Blood 10/07/2024 7:02 PM CDT 10/07/2024 7:32 PM CDT us Chong Hutchinson TENT WORKER LAB BLOOD ORDERABLES Fi nal Result Performing Organization Address [facility]/ZIP Co de Phone Number [facility] Department [place] [address] * Critical Care (10/07/2024 6:12 PM CDT) [...] plan with the ICU team and other medical/home performance consultant staff, making frequent assessments and decisions [...] For susceptibility results, refer to accession number [id number] on the Cervical aspirate culture from 10/08/2024 (.) SHEREEN PANIAGUA Organism STAPHYLOCOCCUS AUREUS [facility] Tissue (Cervical) 10/07/2024 6:11 PM CDT 10/08/2024 8:05 AM CDT Narrative SHEREEN [facility]REPO - 10/13/2024 3:07 PM CDT C1-C2 Joint Tissue Testing performed by [facility] Microbiology Laboratory ([phone]) Specimens submitted from normally sterile body sites [...] ENERAL ORDERABLES Final Result Performing Organization Address City/[facility]/ZIP Co de Phone Number [facility] [place] [address] * FL Fluoroscopy < 1 Hour (10/07/2024 5:40 PM CDT) Narrative RAD_PACS_[facility] - 10/07/2024 5:48 PM CDT The images from this study are not interpreted by Radiology. Please refer to the physician's procedure / OR operative note. Deshawn Cornelius MD IMG FLUOROSCOPY PROC EDURES Final Result Performing Organization Address [facility] Co de Phone Number [email or web address] * (ABNORMAL) Aerobic and anaerobic culture and gram stain Aspirate Cervical (10/07/2024 4:52 PM CDT) Direct Specimen Exam Stain: Few polymorphonuclear leukocytes seen. No organisms seen. Slide reviewed. Review is consistent with original read. Report Final Report: Few Staphylococcus aureus Methicillin susceptible (MSSA) by penicillin binding protein 2a (PBP2a) testing. (.) [facility] Organism STAPHYLOCOCCUS AUREUS [facility] Aspirate (Cervical) 10/07/2024 4:52 PM CDT 10/08/2024 8:04 AM CDT Narrative SHEREEN PANIAGUA - 10/13/2024 3:06 PM CDT C1-C2 Joint Testing performed by [facility] Microbiology Laboratory ([phone]) Specimens submitted from normally sterile body sites [...] MICROBIOLOGY - G ENERAL ORDERABLES Final Result [facility] [place] [address] * (ABNORMAL) POC Blood Gas and Chemistries, Arterial - (10/07/2024 4:48 PM CDT) pH, Art POC 7.29(L) 7.35 - 7.45 pCO2, Art POC 48(H) 35 - 45 mmHg [facility] pO2, Art POC 233(H) 83 - 108 mmHg [facility] Na, POC 136 135 - 145 mmol/L [facility] K POC 4.0 3.3 - 4.9 mmol/L [facility] Comment: Interpretive Data Not all point of care methods assess for hemolysis. Confirm with instrument and retest K+ if not consistent with clinical signs and symptoms. Current Interpretive Data was last revised on 2023. Cl, POC 108 97 - 110 mmol/L [facility] Ionized Ca, POC 5.18(H) 4.50 - 5.10 mg/dL [facility] Glucose, POC 123 70 - 199 mg/dL [facility] Lactate POC 0.7 0.7 - 2.0 mmol/L [facility] SO2 (ramesh) arterial 99(H) 90 - 95 % [facility] Base excess, POC -3.5 mmol/L [facility] Hct, POC 28.0(L) 41.4 - 51.6 % [facility] Total Hb, POC 9.2(L) 13.8 - 17.2 g/dL [facility] Blood 10/07/2024 4:48 PM CDT 10/07/2024 4:48 PM CDT us Deshawn Cornelius MD LAB POCT ORDERABLES - DEVICE Final Result [facility] [place] [address] * Tissue aerobic and anaerobic culture and gram stain Tissue Cervical (10/07/2024 3:57 PM CDT) Direct Specimen Exam Stain: No polymorphonuclear leukocytes seen. No organisms seen. Report Final Report: No growth [facility] Tissue (Cervical) 10/07/2024 3:57 PM CDT 10/07/2024 5:40 PM CDT Narrative [facility] - 10/12/2024 10:30 AM CDT Paraspinal tissue Received in transport media. Specimen collected in the operating room. Testing performed by [facility] Microbiology Laboratory ([phone]) Specimens submitted from normally sterile body sites [...] - G ENERAL ORDERABLES Final Result [facility] [place] [address] * [place] AN PROCEDURE PLACEHOLDER (10/07/2024 3:38 PM CDT) [...] MD ANESTHESIA ORDERABLES Fi nal Result * IL AN PROCEDURE PLACEHOLDER (10/07/2024 3:37 PM CDT) Belkis Aldrich BAGGAGE PORTER - 10/07/2024 3:37 PM CDT Belkis Lockett BAGGAGE PORTER 10/07/2024 3:38 PM Peripheral IV Catheter Patient [...] MD ANESTHESIA ORDERABLES Fi nal Result * IL AN ELECTIVE ENDOTRACHEAL AIRWAY, IL AN PROCEDURE PLACEHOLDER (10/07/2024 3:36 PM CDT) Belkis Aldrich CRNA - 10/07/2024 3:36 PM CDT Belkis Lockett BAGGAGE PORTER 10/07/2024 3:42 PM Airway Patient location: OR Urgency: elective Indications for airway management: anesthesia Difficult airway: no Staff: Supervising provider: Kenya Hernandez MD Placed by: BAGGAGE PORTER: Belkis Lockett CRNA Emergent airway documentation: Risks [...] oral Blade type: Lobo Video blade type: fabrooms Blade size: 3 (3X anterior blade) Cormack-Lehane [...] AM CDT Narrative 10/07/2024 1:45 PM CDT [facility] [place] [address] Transthoracic Echocardiographic Report Patient Name: SABINO PACHECO : 1945 (79y 7m) Gender: M Study Date: 10/07/2024 11:09:18 AM Ht(Inch): 72 Wt(Lb): 164.9 BSA: 1.95 Lifter/Driver: Cecily Hernandez RDCS Location: [id number] Order Provider: DESHAWN CORNELIUS BMI: 22.36 BP: 119 / 66 Ref Provider: DSEHAWN CORNELIUS - PROCEDURES: Echocardiographic Report: Transthoracic complete [...] Procedure Note Yaw Gan MD - 10/07/2024 [facility] [place] [place] [address] [place] [address] Transthoracic Echocardiographic Report Patient Name: SABINO PACHECO : 1945 (79y 7m) Gender: M Study Date: 10/07/2024 11:09:18 AM Ht(Inch): 72 Wt(Lb): 164.9 BSA: 1.95 Lifter/Driver: Cecily Hernandez RDCS Location: [id number] Order Provider:DESHAWN CORNELIUS BMI: 22.36 BP: 119 [...] * POCT glucose (10/07/2024 11:32 AM CDT) [facility] Signature Glucose, POC 100 70 - 199 mg/dL Blood 10/07/2024 11:3 2 AM CDT 10/07/2024 11:32 AM CDT us Deshawn Cornelius MD LAB POCT ORDERABLES - DEVICE Final Result [facility] Department [place] [address] * Critical Care (10/07/2024 11:20 AM CDT) [...] plan with the ICU team and other medical/home performance consultant staff, making frequent assessments and decisions [...] culture Blood (10/07/2024 9:56 AM CDT) Pathologist [facility] Direct Specimen Exam Molecular Analysis: Methicillin-suscep tible Staphylococcus aureus (MSSA) detected by the aga [employer] BCID-GP panel. This test does not exclude the possibility of a mixed bacterial infection. Notification of: Methicillin-suscep tible Staphylococcus aureus (MSSA) called to and read back by: Chong Hutchinson NP ([phone]) on 10/08/2024 04:52:04 by: Yaw Griffith [place] Direct Specimen Exam Stain: Gram Positive Cocci in clusters Time to culture positivity (anaerobic media): 15.5 hours Notification of: Gram Positive Cocci in clusters called to and read back by: Chong Hutchinson NP [phone] on 10/08/2024 02:50:21 by: Lizbeth Robles [place] [facility] Report Final Report: Staphylococcus aureus Methicillin susceptible (MSSA) by penicillin binding protein 2a (PBP2a) testing. (.) [facility] Organism STAPHYLOCOCCUS AUREUS [facility] Blood 10/07/2024 9:56 AM CDT 10/07/2024 10:13 AM CDT Narrative [facility] - 10/13/2024 8:13 AM CDT Collection->Peripheral [...] performance characteristics have been verified by the [facility] Microbiology Laboratory. For questions about this culture, contact the Microbiology Laboratory at [phone]. Interpretive data was last revised on 24. [...] ENERAL ORDERABLES Final Result Performing Organization Address City/[facility]/ZIP Co de Phone Number [facility] [place] [address] * Blood culture Blood (10/07/2024 9:56 AM CDT) Report Final Report: No growth Blood 10/07/2024 9:56 AM CDT 10/07/2024 10:13 AM CDT Narrative SHEREEN [facility] - 10/11/2024 12:01 PM CDT Collection->Peripheral Specimen [...] performance characteristics have been verified by the [facility] Microbiology Laboratory. For questions about this culture, contact the Microbiology Laboratory at [phone]. Interpretive data was last revised on 24. Deshawn Cornelius MD LAB MICROBIOLOGY - G ENERAL ORDERABLES Final Result Performing Organization Address City/[facility]/ZIP Co de Phone Number SHEREEN PANIAGUA [facility] [place] [address] * POCT glucose (10/07/2024 7:40 AM CDT) Glucose, POC 106 70 - 199 mg/dL Blood 10/07/2024 7:40 AM CDT 10/07/2024 7:40 AM CDT Deshawn Cornelius MD LAB POCT ORDERABLES - DEVICE Final Result Performing Organization Address [facility] Co de Phone Number [facility] [place] [address] * (ABNORMAL) CRP (acute phase) (10/07/2024 3:28 AM CDT) [facility] CRP 248.0(H) <=10.0 mg/L Blood 10/07/2024 3:28 AM CDT 10/07/2024 5:12 AM CDT Deshawn Cornelius MD LAB BLOOD ORDERABLES Final Result Performing Organization Address [facility] [place] [address] * POCT glucose (10/07/2024 2:53 AM CDT) Glucose, POC 112 70 - 199 mg/dL Blood 10/07/2024 2:53 AM CDT 10/07/2024 2:53 AM CDT Deshawn Cornelius MD LAB POCT ORDERABLES - DEVICE Final Result Performing Organization Address [facility] [place] [address] * ECG 12 lead (10/07/2024 2:17 AM CDT) Ventricular Rate EKG/Min 86 BPM [facility] Atrial Rate 136 BPM [facility] QRS-Interval (MSEC) 100 ms [facility] QT-Interval (MSEC) 412 ms [facility] QTc 493 ms [facility] P [place] 64 degrees [facility] R [place] -45 degrees [facility] T [place] 73 degrees [facility] Diagnosis Sinus tachycardia with 2nd degree A-V block (Mobitz I) Left anterior fascicular block Prolonged QT Abnormal ECG No previous ECGs available Confirmed by EVELIN GREEN M.D ([id number]) on 10/07/2024 11:51:49 AM [facility] 10/07/2024 2:17 AM CDT 10/07/2024 11:51 AM CDT us Deshawn Cornelius MD ECG ORDERABLES Donita l Result [facility] * POCT glucose (10/06/2024 11:05 PM CDT) [facility] Glucose, POC 112 70 - 199 mg/dL Blood 10/06/2024 11:0 5 PM CDT 10/06/2024 11:05 PM CDT us Deshawn Cornelius MD LAB POCT ORDERABLES - DEVICE Final Result [facility] Department [place] [address] * Critical Care (10/06/2024 7:28 PM CDT) [...] plan with the ICU team and other medical/home performance consultant staff, making frequent assessments and decisions [...] - DEVICE Final Result Performing Organization Address City/State/[facility] Co de Phone Number [facility] [place] [address] * Critical Care (10/06/2024 6:30 PM CDT) [...] plan with the ICU team and other medical/home performance consultant staff, making frequent assessments and decisions [...] CDT 10/06/2024 6:35 PM CDT Narrative [facility] - 10/11/2024 7:01 AM CDT Collection->Peripheral 1. [...] performance characteristics have been verified by the [facility] Microbiology Laboratory. For questions about this culture, contact the Microbiology Laboratory at [phone]. Interpretive data was last revised on 24. Deshawn Cornelius MD LAB MICROBIOLOGY - G ENERAL ORDERABLES Final Result Performing Organization Address [facility] Co de Phone Number [facility] Department [place] [address] * POCT glucose (10/06/2024 6:09 PM CDT) [facility] Glucose, POC 104 70 - 199 mg/dL Blood 10/06/2024 6:09 PM CDT 10/06/2024 6:09 PM CDT Deshawn Cornelius MD LAB POCT ORDERABLES - DEVICE Final Result Performing Organization Address [facility] de Phone Number [facility] Department [place] [address] * Lactate (10/06/2024 6:08 PM CDT) [facility] Lactate 1.2 0.7 - 2.0 mmol/L Blood 10/06/2024 6:08 PM CDT 10/06/2024 6:19 PM CDT Deshawn Cornelius MD LAB BLOOD ORDERABLES Final Result Performing Organization Address [facility] de Phone Number [facility] [place] [address] * eGFR (10/06/2024 6:08 PM CDT) [facility] eGFR 87 >=60 mL/min/1. 73 m2 Comment: [...] Cornelius MD LAB BLOOD ORDERABLES Final Result [facility] [place] [address] * (ABNORMAL) Differential, auto (10/06/2024 6:08 PM CDT) Neutrophil abs 11.22(H) 1.50 - 6.50 K/cumm Imm gran abs 0.11(H) 0.00 - 0.10 K/cumm [facility] Lymphocyte abs 1.12 0.80 - 3.30 K/cumm [facility] Monocyte abs 1.38(H) 0.20 - 0.80 K/cumm [facility] Eosinophil abs 0.01 0.00 - 0.50 K/cumm [facility] Basophil abs 0.05 0.00 - 0.10 K/cumm [facility] Neutrophil pct 80.7 % [facility] Comment: Interpretive Data Percent cell count reference ranges are not reported, since discordance with absolute values may lead to misinterpretation of CBC data. Current Interpretive Data was last revised on 2017. Imm gran pct 0.8 % [facility] Comment: Interpretive Data Percent cell count reference ranges are not reported, since discordance with absolute values may lead to misinterpretation of CBC data. Current Interpretive Data was last revised on 2017. Lymphocyte pct 8.1 % [facility] Comment: Interpretive Data Percent cell count reference ranges are not reported, since discordance with absolute values may lead to misinterpretation of CBC data. Current Interpretive Data was last revised on 2017. Monocyte pct 9.9 % [facility] Comment: Interpretive Data Percent cell count reference ranges are not reported, since discordance with absolute values may lead to misinterpretation of CBC data. Current Interpretive Data was last revised on 2017. Eosinophil pct 0.1 % [facility] Comment: Interpretive Data Percent cell count reference ranges are not reported, since discordance with absolute values may lead to misinterpretation of CBC data. Current Interpretive Data was last revised on 2017. Basophil pct 0.4 % [facility] Comment: Interpretive Data Percent cell count reference ranges are not reported, since discordance with absolute values may lead to misinterpretation of CBC data. Current Interpretive Data was last revised on 2017. Blood 10/06/2024 6:08 PM CDT 10/06/2024 6:19 PM CDT us Deshawn Cornelius MD LAB BLOOD ORDERABLES Final Result [facility] Department [place] [address] * (ABNORMAL) CBC with auto differential (10/06/2024 6:08 PM CDT) WBC 13.89(H) 3.80 - 9.90 K/cumm Hgb 10.1(L) 13.0 - 17.5 g/dL [facility] Hct 32.4(L) 38.9 - 50.3 % [facility] Plt 636(H) 150 - 400 K/cumm [facility] MPV 8.6(L) 9.1 - 12.3 fL [facility] RBC 4.00(L) 4.30 - 5.80 M/cumm [facility] MCV 81.0(L) 81.3 - 96.4 fL [facility] MCH 25.3(L) 27.1 - 33.3 pg [facility] MCHC 31.2(L) 32.3 - 35.7 g/dL [facility] RDW CV 23.6(H) 11.1 - 14.9 % [facility] RDW SD 67.4(H) 35.7 - 48.1 fL [facility] NRBC abs 0.00 0.00 - 0.01 K/cumm [facility] Blood 10/06/2024 6:08 PM CDT 10/06/2024 6:19 PM CDT Deshawn Cornelius MD LAB BLOOD ORDERABLES Final Result Performing Organization Address City/[facility]/ZIP Co de Phone Number [facility] [place] [address] * (ABNORMAL) Vitamin D 25 hydroxy (10/06/2024 6:08 PM CDT) Vitamin D 25-OH 28(L) 30 - 80 ng/mL Blood 10/06/2024 6:08 PM CDT 10/06/2024 6:19 PM CDT Deshawn Cornelius MD LAB BLOOD ORDERABLES Final Result [facility] [place] [address] * Blood culture Blood (10/06/2024 6:08 PM CDT) Report Final Report: No growth Blood 10/06/2024 6:08 PM CDT 10/06/2024 6:35 PM CDT Narrative [facility] - 10/11/2024 7:01 AM CDT Collection->Peripheral [...] performance characteristics have been verified by the [facility] Microbiology Laboratory. For questions about this culture, contact the Microbiology Laboratory at [phone]. Interpretive data was last revised on 24. Deshawn Cornelius MD LAB MICROBIOLOGY - G ENERAL ORDERABLES Final Result Performing Organization Address City/[facility]/ZIP Co de Phone Number [facility] Department [place] [address] * (ABNORMAL) CRP (acute phase) (10/06/2024 6:08 PM CDT) Pathologist [facility] CRP 226.0(H) <=10.0 mg/L Blood 10/06/2024 6:08 PM CDT 10/06/2024 6:19 PM CDT Deshawn Cornelius MD LAB BLOOD ORDERABLES Final Result [facility] [place] [address] * Phosphorus (10/06/2024 6:08 PM CDT) Phosphorus, pl 3.3 2.3 - 4.5 mg/dL Blood 10/06/2024 6:08 PM CDT 10/06/2024 6:19 PM CDT Deshawn Cornelius MD LAB BLOOD ORDERABLES Final Result [facility] [place] [address] * Magnesium (10/06/2024 6:08 PM CDT) [facility] Magnesium 2.3 1.4 - 2.5 mg/dL Blood 10/06/2024 6:08 PM CDT 10/06/2024 6:19 PM CDT Deshawn Cornelius MD LAB BLOOD ORDERABLES Final Result Performing Organization Address [facility] Co de Phone Number [facility] [place] [address] * (ABNORMAL) Comprehensive metabolic panel (10/06/2024 6:08 PM CDT) [facility] Sodium 137 135 - 145 mmol/L Potassium, pl 3.8 3.3 - 4.9 mmol/L [facility] Chloride 102 97 - 110 mmol/L [facility] CO2 24 22 - 32 mmol/L [facility] Anion gap 11 2 - 15 mmol/L [facility] BUN 13 6 - 25 mg/dL [facility] Creatinine 0.89 0.80 - 1.30 mg/dL [facility] Glucose 101 70 - 199 mg/dL [facility] Comment: Interpretive Data Fasting glucose [...] Calcium 9.1 8.5 - 10.3 mg/dL [facility] Bilirubin, total 0.4 0.1 - 1.2 mg/dL [facility] Protein, pl 8.1 6.5 - 8.5 g/dL [facility] Albumin 3.2(L) 3.5 - 5.0 g/dL [facility] Alk phos 79 40 - 130 Units/L [facility] ALT 14 7 - 55 Units/L [facility] AST 24 10 - 50 Units/L [facility] Blood 10/06/2024 6:08 PM CDT 10/06/2024 6:19 PM CDT us Deshawn Cornelius MD LAB BLOOD ORDERABLES Final Result [facility] [place] [address] * Critical Care (10/06/2024 6:00 PM CDT) [...] plan with the ICU team and other medical/home performance consultant staff, making frequent assessments and decisions [...] IN CLINIC/BEDSIDE ORDER [place] Final Result * [place] CRITICAL CARE ILL/INJURED PATIENT INIT 30-74 MIN [...] 5:06 PM CDT) ABO Rh O Positive [facility] HCLL OTHER 10/06/2024 5:06 PM CDT 10/06/2024 5:19 PM CDT us Pan Leiva MD LAB BLOOD ORDERABLES Donita l Result [facility] [place] [address] [facility] * (ABNORMAL) PTH (10/06/2024 5:06 PM CDT) PTH 11(L) 15 - 65 pg/mL Blood 10/06/2024 5:06 PM CDT 10/06/2024 5:22 PM CDT us Mercedes Lacey [place] [employer] LAB BLOOD ORDERABLES Fi nal Result [facility] PANIAGUA [facility] [place] [address] * MRI Spine Total Complete W WO [...] Outside Reference (10/06/2024 1:07 PM CDT) Impressions RAD_PACS_[facility] - 10/06/2024 1:07 PM CDT These images are for Reference purposes only and have not been reviewed by [facility] Radiology. There will be no report generated by a [facility] Radiologist. Narrative RAD_PACS_[facility] - 10/06/2024 1:07 PM [...] images may or may not represent the [place] source data set and thus may contain changes that may lower the accuracy of this second-opinion interpretation. Electronically signed by: Rich Malhotra MD, PHD Narrative 10/06/2024 1:34 PM CDT EXAMINATION: RADIOLOGY CONSULTATION ON OUTSIDE IMAGING STUDY STUDY INITIALLY PERFORMED: 08/09/2024 at [facility]. TYPE OF STUDY: Multiple CT images [...] demonstrate central calcifications in keeping with granulomas. Content Production Specialist noncalcified nodules include an 8 mm left [...] IMAGING STUDY STUDY INITIALLY PERFORMED: 08/09/2024 at [facility]. TYPE OF STUDY: Multiple CT images [...] demonstrate central calcifications in keeping with granulomas. Content Production Specialist noncalcified nodules include an 8 mm left [...] images may or may not represent the [place] source data set and thus may contain changes that may lower the accuracy of this second-opinion interpretation. Electronically signed by: Rich Malhotra MD, PHD Caren Ladd MD [facility] CT PROCEDURES Fi nal Result * US [...] report of this study generated by a [facility] Radiologist. Electronically signed by: Yaw Tsai [...] report of this study generated by a [facility] Radiologist. Electronically signed by: Yaw Tsai M.D. Caren Ladd MD [facility] US PROCEDURES Fi nal Result * Neuro [...] images may or may not represent the [place] source data set and thus may contain [...] IMAGING STUDY STUDY INITIALLY PERFORMED: 10/06/2024 at [facility]. TYPE OF STUDY: Multiple CTA images of [...] IMAGING STUDY STUDY INITIALLY PERFORMED: 10/06/2024 at [facility]. TYPE OF STUDY: Multiple CTA images of [...] images may or may not represent the [place] source data set and thus may contain [...] images may or may not represent the [place] source data set and thus may contain [...] IMAGING STUDY STUDY INITIALLY PERFORMED: 10/06/2024 at [facility]. TYPE OF STUDY: Multiple CTA images of [...] IMAGING STUDY STUDY INITIALLY PERFORMED: 10/06/2024 at [facility]. TYPE OF STUDY: Multiple CTA images of [...] images may or may not represent the [place] source data set and thus may contain [...] Panel - Heparin (10/06/2024 11:14 AM CDT) [facility] HEPTEM-CT 183 141 - 215 sec HEPTEM-A5 >59 33 - 51 mm [facility] HEPTEM-A10 >68 44 - 61 mm [facility] HEPTEM-A20 >73 52 - 67 mm [facility] HEPTEM-MCF >75 54 - 69 mm [facility] Blood 10/06/2024 11:1 4 AM CDT 10/06/2024 11:24 AM CDT us Pan Leiva MD LAB BLOOD ORDERABLES Edit ed Result - Final Performing Organization Address [facility] [place] [address] * (ABNORMAL) Thromboelastometry Panel - Intrinsic (10/06/2024 11:14 AM CDT) INTEM-CT 194 139 - 205 sec INTEM-A5 65(H) 36 - 54 mm [facility] INTEM-A10 73(H) 46 - 63 mm [facility] INTEM-A20 78(H) 53 - 68 mm [facility] INTEM-MCF 79(H) 55 - 70 mm [facility] INTEM-LI60 99 93 - 100 % [facility] INTEM-ML 2 0 - 7 % [facility] Blood 10/06/2024 11:1 4 AM CDT 10/06/2024 11:24 AM CDT Pan Leiva MD LAB BLOOD ORDERABLES Edit ed Result - Final Performing Organization Address [facility] de Phone Number [facility] [place] [address] * Thromboelastometry Panel - Fibrinogen (10/06/2024 11:14 AM CDT) FIBTEM-A5 See Comment 5 - 16 Comment:Credited, laboratory instrument error. FIBTEM-A10 See Comment 6 - 17 [facility] Comment:Credited, laboratory instrument error. FIBTEM-A20 See Comment 6 - 18 [facility] Comment:Credited, laboratory instrument error. FIBTEM-MCF See Comment 9 - 19 [facility] Comment:Credited, laboratory instrument error. Blood 10/06/2024 11:1 4 AM CDT 10/06/2024 11:24 AM CDT Pan Leiva MD LAB BLOOD ORDERABLES Edit ed Result - Final Performing Organization Address [facility] Co de Phone Number [facility] Department [place] [address] * (ABNORMAL) Thromboelastometry Panel - Extrinsic (10/06/2024 11:14 AM CDT) Pathologist [facility] EXTEM-CT 72 51 - 73 sec EXTEM-A5 68(H) 33 - 52 mm [facility] EXTEM-A10 76(H) 45 - 62 mm [facility] EXTEM-A20 81(H) 54 - 69 mm [facility] EXTEM-MCF >82 57 - 72 mm [facility] EXTEM-LI60 100 94 - 100 % [facility] EXTEM-ML 1 0 - 6 % [facility] Blood 10/06/2024 11:1 4 AM CDT 10/06/2024 11:24 AM CDT Pan Leiva MD LAB BLOOD ORDERABLES Edit ed Result - Final Performing Organization Address [facility] Co de Phone Number [facility] Department [place] [address] * (ABNORMAL) Differential, auto (10/06/2024 11:14 AM CDT) Neutrophil abs 10.16(H) 1.50 - 6.50 K/cumm Imm gran abs 0.05 0.00 - 0.10 K/cumm [facility] Lymphocyte abs 1.34 0.80 - 3.30 K/cumm [facility] Monocyte abs 1.35(H) 0.20 - 0.80 K/cumm [facility] Eosinophil abs 0.01 0.00 - 0.50 K/cumm [facility] Basophil abs 0.05 0.00 - 0.10 K/cumm [facility] Neutrophil pct 78.4 % [facility] Comment: Interpretive Data Percent cell count reference ranges are not reported, since discordance with absolute values may lead to misinterpretation of CBC data. Current Interpretive Data was last revised on 2017. Imm gran pct 0.4 % [facility] Comment: Interpretive Data Percent cell count reference ranges are not reported, since discordance with absolute values may lead to misinterpretation of CBC data. Current Interpretive Data was last revised on 2017. Lymphocyte pct 10.3 % [facility] Comment: Interpretive Data Percent cell count reference ranges are not reported, since discordance with absolute values may lead to misinterpretation of CBC data. Current Interpretive Data was last revised on 2017. Monocyte pct 10.4 % [facility] Comment: Interpretive Data Percent cell count reference ranges are not reported, since discordance with absolute values may lead to misinterpretation of CBC data. Current Interpretive Data was last revised on 2017. Eosinophil pct 0.1 % [facility] Comment: Interpretive Data Percent cell count reference ranges are not reported, since discordance with absolute values may lead to misinterpretation of CBC data. Current Interpretive Data was last revised on 2017. Basophil pct 0.4 % [facility] Comment: Interpretive Data Percent cell count reference ranges are not reported, since discordance with absolute values may lead to misinterpretation of CBC data. Current Interpretive Data was last revised on 2017. Blood 10/06/2024 11:1 4 AM CDT 10/06/2024 11:24 AM CDT us Pan Leiva MD LAB BLOOD ORDERABLES Donita sinha Result [facility] [place] [address] * (ABNORMAL) CBC with auto differential (10/06/2024 11:14 AM CDT) WBC 12.96(H) 3.80 - 9.90 K/cumm Comment:Code Blue Specimen C ode Blue Specimen Hgb 10.2(L) 13.0 - 17.5 g/dL [facility] Hct 32.2(L) 38.9 - 50.3 % [facility] Plt 607(H) 150 - 400 K/cumm [facility] MPV 8.6(L) 9.1 - 12.3 fL [facility] RBC 4.01(L) 4.30 - 5.80 M/cumm [facility] MCV 80.3(L) 81.3 - 96.4 fL [facility] MCH 25.4(L) 27.1 - 33.3 pg [facility] MCHC 31.7(L) 32.3 - 35.7 g/dL [facility] RDW CV 23.6(H) 11.1 - 14.9 % [facility] RDW SD 67.2(H) 35.7 - 48.1 fL [facility] NRBC abs 0.00 0.00 - 0.01 K/cumm [facility] Blood 10/06/2024 11:1 4 AM CDT 10/06/2024 11:24 AM CDT Pan Leiva MD LAB BLOOD ORDERABLES Donita l Result Performing Organization Address [facility] de Phone Number [facility] [place] [employer] [place] [address] * aPTT (10/06/2024 11:14 AM CDT) [facility] aPTT 32 28 - 38 sec Comment: Code Blue Specimen Interpretive Data Heparin therapeutic range: 66.0 - 100.0 seconds. Range based on correlation with therapeutic heparin activity range of 0.3 - 0.7 Units/mL. Current interpretive data was last revised on 2023. Blood 10/06/2024 11:1 4 AM CDT 10/06/2024 11:24 AM CDT Pan Leiva MD LAB BLOOD ORDERABLES Donita l Result Performing Organization Address City/[facility]/ZIP Co de Phone Number [facility] [place] [address] * (ABNORMAL) Erythrocyte sedimentation rate (10/06/2024 11:14 AM CDT) Erythrocyte sedimentation rate 98(H) 1 - 20 mm/hr Blood 10/06/2024 11:1 4 AM CDT 10/06/2024 11:27 AM CDT Pan Leiva MD LAB BLOOD ORDERABLES Donita l Result Performing Organization Address [facility] de Phone Number [facility] [place] [employer] [address] * (ABNORMAL) Protime-INR (10/06/2024 11:14 AM CDT) PT 14.6(H) 9.7 - 13.0 sec Comment:Code Blue Specimen INR 1.34(H) 0.90 - 1.20 [facility] Comment: Code Blue Specimen Interpretive [...] ORDERABLES Donita l Result Performing Organization Address [facility] de Phone Number [facility] [place] [address] * Type and screen (10/06/2024 11:14 AM CDT) ABO Rh O Positive Thomas, indirect Negative [facility] Blood 10/06/2024 11:1 4 AM CDT 10/06/2024 11:30 AM CDT Narrative [facility] - 10/06/2024 12:45 PM CDT Has the patient had Daratumumab or Isatuximab in the past 6 months?->Unknown Pan Leiva MD LAB BLOOD BANK TEST ORDER [place] Final Result Performing Organization Address City/[facility] Co de Phone Number [facility] [place] [address] * Ethanol (10/06/2024 11:14 AM CDT) Ethanol [...] ORDERABLES Donita l Result Performing Organization Address [facility] Co de Phone Number [facility] [place] [address] * (ABNORMAL) POC Blood Gas and Chemistries, Venous - (10/06/2024 11:13 AM CDT) pH, Dirk POC 7.45(H) 7.32 - 7.43 pCO2, dirk POC 41 40 - 50 mmHg [facility] pO2, dirk POC 50 mmHg [facility] Na, POC 136 135 - 145 mmol/L [facility] K POC 4.0 3.3 - 4.9 mmol/L [facility] Comment: Interpretive Data Not all point of care methods assess for hemolysis. Confirm with instrument and retest K+ if not consistent with clinical signs and symptoms. Current Interpretive Data was last revised on 2023. Cl, POC 105 97 - 110 mmol/L [facility] Ionized Ca, POC 5.02 4.50 - 5.10 mg/dL [facility] Glucose, POC 126 70 - 199 mg/dL [facility] Lactate POC 1.2 0.7 - 2.0 mmol/L [facility] MetHb, Dirk POC 0.8 0.0 - 1.9 % [facility] O2 Sat, Dirk POC (Ramesh) 79 % [facility] Base excess, POC 4.1 mmol/L [facility] HCO3, Dirk POC 28 20 - 30 mmol/L [facility] Hct, POC 32.0(L) 41.4 - 51.6 % [facility] Total Hb, POC 10.6(L) 13.8 - 17.2 g/dL [facility] Blood 10/06/2024 11:1 3 AM CDT 10/06/2024 11:13 AM CDT us Hanane Marquis MD LAB POCT ORDERABLES - DEVICE Fin al Result [facility] [place] [address] from Last 3 Months Additional Health Concerns Active Problems Noted Date Diagnosed Date Initial Follow-Up Appointment 10/17/2024 Problems In Home Environment 10/17/2024 Insurance [facility] MEDIC[facility] GOLD Advance Directives For more information, please contact: [phone] * Full Code (Latest Code Status on File) Date Activated Date Inactivated Comments 10/06/2024 6:01 PM 10/14/2024 7:56 PM Care Teams Features Reporter Relationship Specialty Start Date End Date Willi Wyatt DO [address] [place] [address] PCP - General Internal Medicine 10/06/24 Jose M West MD [address] IM INFECTIOUS DISEASE, [facility] [address] [place] [address] PCP - Home Infusion Attending Infectious Diseases 10/19/24 Sangeeta Wang, COMPOUNDING PHARMACY TECHNICIAN [address] [facility] ([facility]) Mailstop [phone] [place] [address] [facility] Outpatient Doggy Daycare Activities Director 10/17/24 Vishal Marie [facility] Pharmacist Pharmacy 10/18/24
--- OUTSIDE RECORDS SUMMARY | 2024-10-25 21:28 | XMS_ITS | Clinical Summary ---
Author Organization [facility] Address [address] [place] [address] Care Team Providers Care Mounter [facility] Name Role Phone Willi Wyatt Primary Care Provider [phone] Sangeeta Wang [facility] Unavailable [phone] Vishal Marie [facility] Unavailable Unavail able Jose M West MD Unavailable [phone] Allergies Active Allergy Reactions Criticality Noted [...] a day 3 mL 11/13 Active multivit iihtpsub-lrxx-EG-calc ium (THERA-M) 9 mg iron-400 mcg tabletIndications:Vit [...] from refrigerator 3-4 hours before administratio n. 27761 mL 11/21 Active sodium chloride 0.9% flush syringeIndications:Os teomyelitis of vertebra of cervical region (HCC) Infuse 10 mL IV as needed for line care 40539 mL 2024 Active heparin 10 unit/mL syringe flush syringeIndications:Ma intain Patency of Indwelling Vascular Catheter Administer 5 mL (50 Units total) into IV catheter as needed (catheter maintenance) 50749 mL 10/17 Active bisacodyL (DULCOLAX) 10 mg [...] a day 3 mL 10/14 Discontinued multivit ywgrwfcb-iedp-NI-calc ium (THERA-M) 9 mg iron-400 mcg tabletIndications:Vit [...] complication on 10/[address] John in [facility] --Since surgery, he reports his vision has [...] 2 weeks after chiropractic adjustment admitted to [facility] and transferred to 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 on 10/06/24 Found to have [...] by ID to place PICC line for long-term IV antibiotics given 10/07-10/09 blood cultures remain [...] 2 weeks after chiropractic adjustment admitted to [facility] and transferred to [facility] on 10/06/24 Found to have [...] 2 weeks after chiropractic adjustment admitted to [facility] and transferred to [facility] on 10/06/24 Found to have [...] less consistent with this. Recommendations: -Agree with PRINT INSPECTOR dosed cefepime at 2g IV q8h, metronidazole [...] rec for rehab, OT rec for home --[facility] for 21 hours/day --Pt to follow up with Dr Cornelius outpatient Encounters Date Type Department Care Team Description 10/25/2024 1:30 PM CDT Home Care Visit [facility] [address] [place] [address] Casa Warren RN SN HOME VISIT 10/25/2024 1:00 PM CDT Hospital Encounter [address] [address] 10/25/2024 Documentation [facility] [address] [place] [phone] Bar Porter MD 10/25/2024 Home Care Visit [address] [place] [address] Sangeeta Brunson RN SN TRIAGE ENCOUNTER 10/24/2024 SHOP/CHAP Subsequent Outreach [facility] CASE MANAGEMENT [address] [place] [address] Sangeeta Wang, MAIL PROCESSING MACHINE OPERATOR 10/20/2024 Documentation [facility] [address] [facility] [address] [place] [phone] Nhan Rico Jr., RN 10/18/2024 10:00 AM CDT - 10/18/2024 11:59 PM CDT Hospital Encounter [facility] [address] [place] [address] Discharge Disposition: Discharge to home or self care 10/18/2024 8:00 AM CDT Home Care Visit [address] [place] [address] Casa Warren RN SN HOME VISIT 10/18/2024 Home Infusion [facility] Home Infusion Therapy [address] [place] [address] Bernardino Cooper, [facility] 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) (Primary Dx) 10/17/2024 SHOP/CHAP Initial Outreach [facility]NAGEMENT [address] [place] [address] Sangeeta Wang, MAIL PROCESSING MACHINE OPERATOR 10/17/2024 SHOP/CHAP Initial Eligibility Review [facility] CASE [facility]NAGEMENT [address] [place] [phone] Sangeeta Wang, MAIL PROCESSING MACHINE OPERATOR 10/16/2024 Home Infusion [facility] Home Infusion Therapy [address] [place] [address] Celeste Marie RN 10/15/2024 1:30 PM CDT Home Care Visit [place] [id number] [facility] [address] [place] [address] Cecilia Tian SN OASIS START OF CARE 10/15/2024 Plan of Care Documentation [facility] [address] [facility] [address] [place] [address] 10/14/2024 Orders Only [facility] Home Care Services [address] [facility] [address] [place] [phone] Vanita Hernandez, [facility] 10/13/2024 Ophth Exam Ophthalmology Gina Pendleton MD 10/11/2024 Documentation [facility] [address] [place] [phone] Bianca Ceja NP 10/09/2024 Ophth Exam [facility] [address] [facility] 1st [place] [phone] Imani Ventura MD 10/07/2024 1:49 PM CDT Anesthesia Event [facility] Operating Room [address] [place] [address] Alistair Stevenson MD Dippolito, Jenny Irene, NP 10/07/2024 1:30 PM CDT - 10/07/2024 7:[address] [facility] Operating Room [address] [place] [address] Deshawn Cornelius MD CERVICAL FUSION - POSTERIOR, OCCIPUT-C5 C2-C3, C4-C5 Laminectomy 10/06/2024 10:59 AM CDT - 10/14/2024 3:50 PM CDT Hospital Encounter [address] [address] Pan Leiva MD McHale, Matthew Justin, DO [...] In the past 12 months has e [employer], [employer], oil, or water [employer] threatened to shut off services in your [...] often do you attend chur ch or scientology services? More than 4 times per year 10/17/2024 Do you belong to any clubs o r organizations such as episcopalian groups, unions, fraternal or athletic groups, or [...] time in the past 12 m [facility], were you homeless or living in a [...] support and son is staying with him, [facility] confirmed to be involved. Medical Devices Implanted Type Area Continuous Towel Roller Device Identifier Shelf Expiration Date Model / Serial / Lot Invictus Oct 3.5x14 Fa Screw Implanted:Qty: 1 on 10/07/2024 by Deshawn Cornelius MD at [facility] Screw N/A: Spine Cervical [employer] [id number]- 14 / [id number]- 14 / [place] Spine Allograft Gel Graft 5cc Bone Demineralized Bone Matrix [id number] - [id number] Implanted:Qty: 1 on 10/07/2024 by Sarah Milligan MD at [facility] N/A: Spine Cervical Ever Spine [id number] 01/15/2027 [id number] / / [id number] Invictus Oct Plate 48mm Implanted:Qty: 1 on 10/07/2024 by Deshawn Cornelius MD at [facility] N/A: Spine Cervical ATEC Spine 82548-12 / / Description:Approved item mi sc code used Invictus Oct Occipital Screw 4.5 X 6 Implanted:Qty: 1 on 10/07/2024 by Deshawn Cornelius MD at [facility] N/A: Spine Cervical [employer] 88944-07- / / Invictus Oct Occipital Screw 4.5 X 8 Implanted:Qty: 1 on 10/07/2024 by Deshawn Cornelius MD at [facility] N/A: Spine Cervical [employer] 81231-03- / / Invictus Oct Occipital Screw 4.5 X 10 Implanted:Qty: 1 on 10/07/2024 by Deshawn Cornelius MD at [facility] N/A: Spine Cervical [employer] 98120-75- / / Description:Approved misc co de used Invictus Oct Occipital Screw 4.5 X 14 Implanted:Qty: 1 on 10/07/2024 by Deshawn Cornelius MD at [facility] N/A: Spine Cervical [employer] 28419-69- / / Description:Approved misc co de used Invictus Oct Occipital Screw 4.5 X 16 Implanted:Qty: 1 on 10/07/2024 by Deshawn Cornelius MD at [facility] N/A: Spine Cervical [employer] 18187-50- / / Description:Approved misc co de used [employer] Graft Bone Magnetos 10cc 1-2mm Granules In Moldable Putty 703-038-Us - [id number] Implanted:Qty: 1 on 10/07/2024 by Sarah Milligan MD at [facility] N/A: Spine Cervical [employer] [id number] 02/22/2029 703-038-U S / / [id number] Medtronic Inc Infuse 20ga 2x1in Vial Absorbable Syringe Needle Medium Graft 5.6 [id number] - [id number] Implanted:Qty: 1 on 10/07/2024 by Deshawn Cornelius MD at [facility] N/A: Spine Cervical Med[employer]onic Inc [id number] / / Iinvictus Oct Set Screw Implanted:Qty: 9 on 10/07/2024 by Deshawn Cornelius MD at [facility] N/A: Spine Cervical [employer] [id number] / [id number] / Invictus Oct 3.5x16 Fa Screw Implanted:Qty: 5 on 10/07/2024 by Deshawn Cornelius MD at [facility] N/A: Spine Cervical [employer] 86808-11- 16 / [id number]- 16 / Invictus Oct 3.5x22 Fa Screw Implanted:Qty: 1 on 10/07/2024 by Deshawn Cornelius MD at [facility] N/A: Spine Cervical [employer] 88050-60- 22 / [id number]- 22 / Description:Approved items m isc code used Invictus Oct Head To Head Connector 40mm Implanted:Qty: 1 on 10/07/2024 by Deshawn Cornelius MD at [facility] N/A: Spine Cervical [employer] 05432-31 / [id number] / 4.0 Ti Hinged Mono Implanted:Qty: 2 on 10/07/2024 by Deshawn Cornelius MD at [facility] N/A: Spine Cervical ATEC Spine 99098-46- 40 / / Occipital Tulip Implanted:Qty: 2 on 10/07/2024 by Deshawn Cornelius MD at [facility] N/A: Spine Cervical ATEC Spine [id number] / / Procedures Procedure Name Priority Date/Time [...] GRAM STAIN Routine 10/07/2024 3:57 PM CDT RI AN PROCEDURE PLACEHOLDER Routine 10/07/2024 3:38 PM CDT RI AN PROCEDURE PLACEHOLDER Routine 10/07/2024 3:37 PM CDT RI AN PROCEDURE PLACEHOLDER Routine 10/07/2024 3:36 PM CDT RI AN ELECTIVE ENDOTRACHEAL AIRWAY Routine 10/07/2024 3:36 [...] cervical vertebra, unspecified fracture morphology, initial encounter ([facility]) 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 Lymphocyte abs 1.18 0.80 - 3.30 K/cumm [facility] Monocyte abs 0.47 0.20 - 0.80 K/cumm [facility] Eosinophil abs 0.17 0.00 - 0.50 K/cumm [facility] Basophil abs 0.06 0.00 - 0.10 K/cumm [facility] Neutrophil pct 59.3 % [facility] Comment: Interpretive Data Percent cell count reference ranges are not reported, since discordance with absolute values may lead to misinterpretation of CBC data. Current Interpretive Data was last revised on 2017. Imm gran pct 0.2 % [facility] Comment: Interpretive Data Percent cell count reference ranges are not reported, since discordance with absolute values may lead to misinterpretation of CBC data. Current Interpretive Data was last revised on 2017. Lymphocyte pct 25.4 % [facility] Comment: Interpretive Data Percent cell count reference ranges are not reported, since discordance with absolute values may lead to misinterpretation of CBC data. Current Interpretive Data was last revised on 2017. Monocyte pct 10.1 % [facility] Comment: Interpretive Data Percent cell count reference ranges are not reported, since discordance with absolute values may lead to misinterpretation of CBC data. Current Interpretive Data was last revised on 2017. Eosinophil pct 3.7 % [facility] Comment: Interpretive Data Percent cell count reference ranges are not reported, since discordance with absolute values may lead to misinterpretation of CBC data. Current Interpretive Data was last revised on 2017. Basophil pct 1.3 % [facility] Comment: Interpretive Data Percent cell count reference ranges are not reported, since discordance with absolute values may lead to misinterpretation of CBC data. Current Interpretive Data was last revised on 2017. Blood 10/25/2024 1:00 PM CDT 10/25/2024 6:13 PM CDT us Jose M West MD LAB BLOOD ORDERABLES Final Res ult [facility] [place] [address] * Critical Result Callback Chemistry (10/25/2024 1:00 PM CDT) Date Notified 20241025 Time Notified 1902 [facility] TestName Potassium Plas [facility] Called/Read Back Holly Brunson [facility] Credentials [facility] Called By radha [facility] Blood 10/25/2024 1:00 PM CDT 10/25/2024 6:16 PM CDT Jose M West MD LAB BLOOD ORDERABLES Final Res ult [facility] [place] [address] * (ABNORMAL) CBC with auto differential (10/25/2024 1:00 PM CDT) Pathologist [facility] WBC 4.64 3.80 - 9.90 K/cumm Hgb 9.2(L) 13.0 - 17.5 g/dL [facility] Hct 31.0(L) 38.9 - 50.3 % [facility] Plt 449(H) 150 - 400 K/cumm [facility] MPV 8.8(L) 9.1 - 12.3 fL [facility] RBC 3.38(L) 4.30 - 5.80 M/cumm [facility] MCV 91.7 81.3 - 96.4 fL [facility] MCH 27.2 27.1 - 33.3 pg [facility] MCHC 29.7(L) 32.3 - 35.7 g/dL [facility] RDW CV 24.3(H) 11.1 - 14.9 % [facility] RDW SD 84.3(H) 35.7 - 48.1 fL [facility] NRBC abs 0.00 0.00 - 0.01 K/cumm [facility] Blood 10/25/2024 1:00 PM CDT 10/25/2024 6:13 PM CDT Jose M West MD LAB BLOOD ORDERABLES Final Res ult Performing Organization Address [facility] Co de Phone Number [facility] [place] [address] * (ABNORMAL) Erythrocyte sedimentation rate (10/25/2024 1:00 PM CDT) Erythrocyte sedimentation rate 93(H) 1 - 20 mm/hr Blood 10/25/2024 1:00 PM CDT 10/25/2024 6:13 PM CDT Jose M West MD LAB BLOOD ORDERABLES Final Res ult Performing Organization Address [facility] Co de Phone Number [facility] [place] [address] * (ABNORMAL) CRP (acute phase) (10/25/2024 1:00 PM CDT) Pathologist [facility] CRP 18.7(H) <=10.0 mg/L Blood 10/25/2024 1:00 PM CDT 10/25/2024 6:13 PM CDT Jose M West MD LAB BLOOD ORDERABLES Final Res ult Performing Organization Address [facility] Co de Phone Number [facility] [place] [address] * (ABNORMAL) Comprehensive metabolic panel (10/25/2024 1:00 PM CDT) Sodium 139 135 - 145 mmol/L Potassium, pl 2.4(C) 3.3 - 4.9 mmol/L [facility] Chloride 100 97 - 110 mmol/L [facility] CO2 29 22 - 32 mmol/L [facility] Anion gap 10 2 - 15 mmol/L [facility] BUN 8 6 - 25 mg/dL [facility] Creatinine 0.89 0.80 - 1.30 mg/dL [facility] Glucose 145 70 - 199 mg/dL [facility] Comment: Interpretive Data Fasting glucose >/= 126 [...] 2022. Calcium 8.2(L) 8.5 - 10.3 mg/dL [facility] Bilirubin, total 0.2 0.1 - 1.2 mg/dL [facility] Protein, pl 6.7 6.5 - 8.5 g/dL [facility] Albumin 2.8(L) 3.5 - 5.0 g/dL [facility] Alk phos 103 40 - 130 Units/L [facility] ALT 8 7 - 55 Units/L [facility] AST 25 10 - 50 Units/L [facility] Blood 10/25/2024 1:00 PM CDT 10/25/2024 6:13 PM CDT us Jose M West MD LAB BLOOD ORDERABLES Final Res ult [facility] [place] [address] * eGFR (10/18/2024 10:00 AM CDT) eGFR [...] MD LAB BLOOD ORDERABLES Final Res ult [facility] [place] [address] * (ABNORMAL) Differential, auto (10/18/2024 10:00 AM CDT) Neutrophil abs 6.84(H) 1.50 - 6.50 K/cumm Imm gran abs 0.04 0.00 - 0.10 K/cumm [facility] Lymphocyte abs 2.07 0.80 - 3.30 K/cumm [facility] Monocyte abs 0.79 0.20 - 0.80 K/cumm [facility] Eosinophil abs 0.10 0.00 - 0.50 K/cumm [facility] Basophil abs 0.07 0.00 - 0.10 K/cumm [facility] Neutrophil pct 69.0 % [facility] Comment: Interpretive Data Percent cell count reference ranges are not reported, since discordance with absolute values may lead to misinterpretation of CBC data. Current Interpretive Data was last revised on 2017. Imm gran pct 0.4 % [facility] Comment: Interpretive Data Percent cell count reference ranges are not reported, since discordance with absolute values may lead to misinterpretation of CBC data. Current Interpretive Data was last revised on 2017. Lymphocyte pct 20.9 % [facility] Comment: Interpretive Data Percent cell count reference ranges are not reported, since discordance with absolute values may lead to misinterpretation of CBC data. Current Interpretive Data was last revised on 2017. Monocyte pct 8.0 % [facility] Comment: Interpretive Data Percent cell count reference ranges are not reported, since discordance with absolute values may lead to misinterpretation of CBC data. Current Interpretive Data was last revised on 2017. Eosinophil pct 1.0 % [facility] Comment: Interpretive Data Percent cell count reference ranges are not reported, since discordance with absolute values may lead to misinterpretation of CBC data. Current Interpretive Data was last revised on 2017. Basophil pct 0.7 % [facility] Comment: Interpretive Data Percent cell count reference ranges are not reported, since discordance with absolute values may lead to misinterpretation of CBC data. Current Interpretive Data was last revised on 2017. Blood 10/18/2024 10:0 0 AM CDT 10/18/2024 1:56 PM CDT us Jose M West MD LAB BLOOD ORDERABLES Final Res ult [facility] [place] [address] * (ABNORMAL) CBC with auto differential (10/18/2024 10:00 AM CDT) WBC 9.91(H) 3.80 - 9.90 K/cumm Hgb 8.6(L) 13.0 - 17.5 g/dL [facility] Hct 27.5(L) 38.9 - 50.3 % [facility] Plt 701(H) 150 - 400 K/cumm [facility] MPV 8.8(L) 9.1 - 12.3 fL [facility] RBC 3.24(L) 4.30 - 5.80 M/cumm [facility] MCV 84.9 81.3 - 96.4 fL [facility] MCH 26.5(L) 27.1 - 33.3 pg [facility] MCHC 31.3(L) 32.3 - 35.7 g/dL [facility] RDW CV 24.7(H) 11.1 - 14.9 % [facility] RDW SD 72.7(H) 35.7 - 48.1 fL [facility] NRBC abs 0.00 0.00 - 0.01 K/cumm [facility] Blood 10/18/2024 10:0 0 AM CDT 10/18/2024 1:56 PM CDT us Jose M West MD LAB BLOOD ORDERABLES Final Res ult [facility] [place] [address] * (ABNORMAL) Comprehensive metabolic panel (10/18/2024 10:00 AM CDT) Sodium 137 135 - 145 mmol/L Potassium, pl 3.2(L) 3.3 - 4.9 mmol/L [facility] Chloride 97 97 - 110 mmol/L [facility] CO2 28 22 - 32 mmol/L [facility] Anion gap 12 2 - 15 mmol/L [facility] BUN 11 6 - 25 mg/dL [facility] Creatinine 0.95 0.80 - 1.30 mg/dL [facility] Glucose 70 70 - 199 mg/dL [facility] Comment: Interpretive Data Fasting glucose >/= 126 [...] 2022. Calcium 8.5 8.5 - 10.3 mg/dL [facility] Bilirubin, total 0.3 0.1 - 1.2 mg/dL [facility] Protein, pl 7.0 6.5 - 8.5 g/dL [facility] Albumin 2.9(L) 3.5 - 5.0 g/dL [facility] Alk phos 91 40 - 130 Units/L [facility] ALT 10 7 - 55 Units/L [facility] AST 26 10 - 50 Units/L [facility] Blood 10/18/2024 10:0 0 AM CDT 10/18/2024 1:56 PM CDT us Jose M West MD LAB BLOOD ORDERABLES Final Res ult Performing Organization Address [facility]/ZIP Co de Phone Number [facility] [place] [address] * eGFR (10/13/2024 8:57 PM CDT) eGFR [...] ORDERABLES Donita l Result Performing Organization Address City/[facility]/ZIP Co de Phone Number [facility] [place] [address] * (ABNORMAL) CBC without differential (10/13/2024 8:57 PM CDT) WBC 13.11(H) 3.80 - 9.90 K/cumm Hgb 9.0(L) 13.0 - 17.5 g/dL [facility] Hct 28.9(L) 38.9 - 50.3 % [facility] Plt 741(H) 150 - 400 K/cumm [facility] MPV 8.3(L) 9.1 - 12.3 fL [facility] RBC 3.53(L) 4.30 - 5.80 M/cumm [facility] MCV 81.9 81.3 - 96.4 fL [facility] MCH 25.5(L) 27.1 - 33.3 pg [facility] MCHC 31.1(L) 32.3 - 35.7 g/dL [facility] RDW CV 23.1(H) 11.1 - 14.9 % [facility] RDW SD 66.6(H) 35.7 - 48.1 fL [facility] NRBC abs 0.00 0.00 - 0.01 K/cumm [facility] Blood 10/13/2024 8:57 PM CDT 10/13/2024 9:42 PM CDT us Jonathan Alston NP LAB BLOOD ORDERABLES Fi nal Result Performing Organization Address City/[facility]/ZIP Co de Phone Number [facility] [place] [address] * (ABNORMAL) Phosphorus (10/13/2024 8:57 PM CDT) Pathologist [facility] Phosphorus, pl 2.1(L) 2.3 - 4.5 mg/dL Blood 10/13/2024 8:57 PM CDT 10/13/2024 9:43 PM CDT Deshawn Cornelius MD LAB BLOOD ORDERABLES Final Result [facility] [place] [address] * (ABNORMAL) Comprehensive metabolic panel (10/13/2024 8:57 PM CDT) Sodium 137 135 - 145 mmol/L Potassium, pl 3.8 3.3 - 4.9 mmol/L [facility] Chloride 99 97 - 110 mmol/L [facility] CO2 28 22 - 32 mmol/L [facility] Anion gap 10 2 - 15 mmol/L [facility] BUN 11 6 - 25 mg/dL [facility] Creatinine 0.81 0.80 - 1.30 mg/dL [facility] Glucose 102 70 - 199 mg/dL [facility] Comment: Interpretive Data Fasting glucose >/= 126 [...] 2022. Calcium 8.3(L) 8.5 - 10.3 mg/dL [facility] Bilirubin, total 0.3 0.1 - 1.2 mg/dL [facility] Protein, pl 6.7 6.5 - 8.5 g/dL [facility] Albumin 2.7(L) 3.5 - 5.0 g/dL [facility] Alk phos 73 40 - 130 Units/L [facility] [facility] ALT 11 7 - 55 Units/L [facility] AST 21 10 - 50 Units/L [facility] Blood 10/13/2024 8:57 PM CDT 10/13/2024 9:43 PM CDT Vanessa Sam NP LAB BLOOD ORDERABLES Donita bharath Result [facility] [place] [address] * eGFR (10/12/2024 9:12 PM CDT) eGFR [...] NP LAB BLOOD ORDERABLES Donita sinha Result [facility] [place] [address] * (ABNORMAL) Differential, auto (10/12/2024 9:12 PM CDT) Neutrophil abs 6.14 1.50 - 6.50 K/cumm Imm gran abs 0.05 0.00 - 0.10 K/cumm [facility] Lymphocyte abs 2.32 0.80 - 3.30 K/cumm [facility] Monocyte abs 0.82(H) 0.20 - 0.80 K/cumm [facility] Eosinophil abs 0.38 0.00 - 0.50 K/cumm [facility] Basophil abs 0.06 0.00 - 0.10 K/cumm [facility] Neutrophil pct 62.9 % [facility] Comment: Interpretive Data Percent cell count reference ranges are not reported, since discordance with absolute values may lead to misinterpretation of CBC data. Current Interpretive Data was last revised on 2017. Imm gran pct 0.5 % [facility] Comment: Interpretive Data Percent cell count reference ranges are not reported, since discordance with absolute values may lead to misinterpretation of CBC data. Current Interpretive Data was last revised on 2017. Lymphocyte pct 23.7 % [facility] Comment: Interpretive Data Percent cell count reference ranges are not reported, since discordance with absolute values may lead to misinterpretation of CBC data. Current Interpretive Data was last revised on 2017. Monocyte pct 8.4 % [facility] Comment: Interpretive Data Percent cell count reference ranges are not reported, since discordance with absolute values may lead to misinterpretation of CBC data. Current Interpretive Data was last revised on 2017. Eosinophil pct 3.9 % [facility] Comment: Interpretive Data Percent cell count reference ranges are not reported, since discordance with absolute values may lead to misinterpretation of CBC data. Current Interpretive Data was last revised on 2017. Basophil pct 0.6 % [facility] Comment: Interpretive Data Percent cell count reference ranges are not reported, since discordance with absolute values may lead to misinterpretation of CBC data. Current Interpretive Data was last revised on 2017. Blood 10/12/2024 9:12 PM CDT 10/12/2024 11:48 PM CDT us Bianca Ceja NP LAB BLOOD ORDERABLES Final Result [facility] [place] [address] * (ABNORMAL) CBC with auto differential (10/12/2024 9:12 PM CDT) WBC 9.66 3.80 - 9.90 K/cumm Hgb 8.7(L) 13.0 - 17.5 g/dL [facility] Hct 28.7(L) 38.9 - 50.3 % [facility] Plt 732(H) 150 - 400 K/cumm [facility] MPV 8.6(L) 9.1 - 12.3 fL [facility] RBC 3.45(L) 4.30 - 5.80 M/cumm [facility] MCV 83.2 81.3 - 96.4 fL [facility] MCH 25.2(L) 27.1 - 33.3 pg [facility] MCHC 30.3(L) 32.3 - 35.7 g/dL [facility] RDW CV 23.0(H) 11.1 - 14.9 % [facility] RDW SD 67.7(H) 35.7 - 48.1 fL [facility] NRBC abs 0.00 0.00 - 0.01 K/cumm [facility] Blood 10/12/2024 9:12 PM CDT 10/12/2024 11:48 PM CDT us Bianca Ceja NP LAB BLOOD ORDERABLES Final Result [facility] [place] [address] * (ABNORMAL) CBC without differential (10/12/2024 9:12 PM CDT) WBC 9.66 3.80 - 9.90 K/cumm Hgb 8.7(L) 13.0 - 17.5 g/dL [facility] Hct 28.7(L) 38.9 - 50.3 % [facility] Plt 732(H) 150 - 400 K/cumm [facility] MPV 8.6(L) 9.1 - 12.3 fL [facility] RBC 3.45(L) 4.30 - 5.80 M/cumm [facility] MCV 83.2 81.3 - 96.4 fL [facility] MCH 25.2(L) 27.1 - 33.3 pg [facility] MCHC 30.3(L) 32.3 - 35.7 g/dL [facility] RDW CV 23.0(H) 11.1 - 14.9 % [facility] RDW SD 67.7(H) 35.7 - 48.1 fL [facility] NRBC abs 0.00 0.00 - 0.01 K/cumm [facility] Blood 10/12/2024 9:12 PM CDT 10/12/2024 11:45 PM CDT us Jonathan Alston NP LAB BLOOD [place] [address] * Phosphorus (10/12/2024 9:12 PM CDT) Phosphorus, pl 2.3 2.3 - 4.5 mg/dL Blood 10/12/2024 9:12 PM CDT 10/12/2024 11:41 PM CDT Deshawn Cornelius MD LAB BLOOD ORDERABLES Final Result Performing Organization Address City/[facility]/ZIP Co de Phone Number [facility] Department [place] [address] * Magnesium (10/12/2024 9:12 PM CDT) Magnesium 2.2 1.4 - 2.5 mg/dL Blood 10/12/2024 9:12 PM CDT 10/12/2024 11:41 PM CDT Deshawn Cornelius MD LAB BLOOD ORDERABLES Final Result Performing Organization Address City/[facility]/ZIP Co de Phone Number [facility] [place] [address] * (ABNORMAL) Comprehensive metabolic panel (10/12/2024 9:12 PM CDT) Pathologist [facility] Sodium 135 135 - 145 mmol/L Potassium, pl 3.4 3.3 - 4.9 mmol/L [facility] Chloride 99 97 - 110 mmol/L [facility] CO2 28 22 - 32 mmol/L [facility] Anion gap 8 2 - 15 mmol/L [facility] BUN 10 6 - 25 mg/dL [facility] Creatinine 0.82 0.80 - 1.30 mg/dL [facility] Glucose 75 70 - 199 mg/dL [facility] Comment: Interpretive Data Fasting glucose >/= 126 [...] 2022. Calcium 8.3(L) 8.5 - 10.3 mg/dL [facility] Bilirubin, total 0.3 0.1 - 1.2 mg/dL [facility] Protein, pl 6.9 6.5 - 8.5 g/dL [facility] Albumin 2.7(L) 3.5 - 5.0 g/dL [facility] Alk phos 67 40 - 130 Units/L [facility] ALT 10 7 - 55 Units/L [facility] AST 22 10 - 50 Units/L [facility] Blood 10/12/2024 9:12 PM CDT 10/12/2024 11:41 PM CDT us Vanessa Sam NP LAB BLOOD ORDERABLES Donita sinha Result [facility] [place] [address] * eGFR (10/11/2024 8:48 PM CDT) eGFR [...] NP LAB BLOOD ORDERABLES Donita sinha Result [facility] [place] [address] * (ABNORMAL) CBC without differential (10/11/2024 8:48 PM CDT) Pathologist [facility] WBC 9.10 3.80 - 9.90 K/cumm Hgb 8.3(L) 13.0 - 17.5 g/dL [facility] Hct 27.0(L) 38.9 - 50.3 % [facility] Plt 662(H) 150 - 400 K/cumm [facility] MPV 8.7(L) 9.1 - 12.3 fL [facility] RBC 3.30(L) 4.30 - 5.80 M/cumm [facility] MCV 81.8 81.3 - 96.4 fL [facility] MCH 25.2(L) 27.1 - 33.3 pg [facility] MCHC 30.7(L) 32.3 - 35.7 g/dL [facility] RDW CV 23.0(H) 11.1 - 14.9 % [facility] RDW SD 66.7(H) 35.7 - 48.1 fL [facility] NRBC abs 0.00 0.00 - 0.01 K/cumm [facility] Blood 10/11/2024 8:48 PM CDT 10/11/2024 10:12 PM CDT us Jonathan Alston NP LAB BLOOD ORDERABLES Fi nal Result [facility] [place] [employer] [place] [address] * Phosphorus (10/11/2024 8:48 PM CDT) Phosphorus, pl 2.4 2.3 - 4.5 mg/dL Blood 10/11/2024 8:48 PM CDT 10/11/2024 10:09 PM CDT Deshawn Cornelius MD LAB BLOOD ORDERABLES Final Result [facility] [place] [employer] [place] [address] * Magnesium (10/11/2024 8:48 PM CDT) Magnesium 2.2 1.4 - 2.5 mg/dL Blood 10/11/2024 8:48 PM CDT 10/11/2024 10:09 PM CDT Deshawn Cornelius MD LAB BLOOD ORDERABLES Final Result [facility] [place] [address] * (ABNORMAL) Comprehensive metabolic panel (10/11/2024 8:48 PM CDT) Sodium 135 135 - 145 mmol/L Potassium, pl 3.4 3.3 - 4.9 mmol/L [facility] Chloride 99 97 - 110 mmol/L [facility] CO2 29 22 - 32 mmol/L [facility] Anion gap 7 2 - 15 mmol/L [facility] BUN 10 6 - 25 mg/dL [facility] Creatinine 0.76(L) 0.80 - 1.30 mg/dL [facility] Glucose 87 70 - 199 mg/dL [facility] Comment: Interpretive Data Fasting glucose >/= 126 [...] 2022. Calcium 8.3(L) 8.5 - 10.3 mg/dL [facility] Bilirubin, total 0.3 0.1 - 1.2 mg/dL [facility] Protein, pl 6.8 6.5 - 8.5 g/dL [facility] Albumin 2.8(L) 3.5 - 5.0 g/dL [facility] Alk phos 64 40 - 130 Units/L [facility] ALT 10 7 - 55 Units/L [facility] AST 19 10 - 50 Units/L [facility] Blood 10/11/2024 8:48 PM CDT 10/11/2024 10:09 PM CDT Vanessa Sam NP LAB BLOOD ORDERABLES Donita sinha Result [facility] [place] [address] * XR Abdomen 1 View AP (10/11/2024 [...] signed by: Cata Hope M.D. [place]ow [place] SPRAY GUN OPERATOR IMG XR PROCEDURES Final Result * eGFR [...] CDT 10/10/2024 11:41 PM CDT Vanessa Sam SPRAY GUN OPERATOR LAB BLOOD ORDERABLES Donita l Result [facility] [place] [address] * (ABNORMAL) CBC without differential (10/10/2024 10:32 PM CDT) WBC 10.23(H) 3.80 - 9.90 K/cumm Hgb 8.6(L) 13.0 - 17.5 g/dL [facility] Comment:Hemoglobin delta due to surgical procedure. Spoke to Juventino Amaya RN at 0025 - RV Hct 27.8(L) 38.9 - 50.3 % [facility] Plt 638(H) 150 - 400 K/cumm [facility] MPV 8.6(L) 9.1 - 12.3 fL [facility] RBC 3.42(L) 4.30 - 5.80 M/cumm [facility] MCV 81.3 81.3 - 96.4 fL [facility] MCH 25.1(L) 27.1 - 33.3 pg [facility] MCHC 30.9(L) 32.3 - 35.7 g/dL [facility] RDW CV 23.1(H) 11.1 - 14.9 % [facility] RDW SD 66.2(H) 35.7 - 48.1 fL [facility] NRBC abs 0.00 0.00 - 0.01 K/cumm [facility] Blood 10/10/2024 10:3 2 PM CDT 10/10/2024 11:53 PM CDT Jonathan Alston SPRAY GUN OPERATOR LAB BLOOD ORDERABLES Ed ited Result - Final Performing Organization Address City/[facility]/ZIP Co de Phone Number [facility] [place] [address] * Phosphorus (10/10/2024 10:32 PM CDT) Pathologist [facility] Phosphorus, pl 2.4 2.3 - 4.5 mg/dL Blood 10/10/2024 10:3 2 PM CDT 10/10/2024 11:41 PM CDT Deshawn Cornelius MD LAB BLOOD ORDERABLES Final Result Performing Organization Address City/[facility]/ZIP Co de Phone Number [facility] [place] [address] * Magnesium (10/10/2024 10:32 PM CDT) [facility] Magnesium 2.1 1.4 - 2.5 mg/dL Blood 10/10/2024 10:3 2 PM CDT 10/10/2024 11:41 PM CDT Deshawn Cornelius MD LAB BLOOD ORDERABLES Final Result Performing Organization Address City/[facility] [place] [address] * (ABNORMAL) Comprehensive metabolic panel (10/10/2024 10:32 PM CDT) [facility] Sodium 133(L) 135 - 145 mmol/L Potassium, pl 3.6 3.3 - 4.9 mmol/L [facility] Chloride 101 97 - 110 mmol/L [facility] CO2 28 22 - 32 mmol/L [facility] Anion gap 4 2 - 15 mmol/L [facility] BUN 11 6 - 25 mg/dL [facility] Creatinine 0.73(L) 0.80 - 1.30 mg/dL [facility] Glucose 91 70 - 199 mg/dL [facility] Comment: Interpretive Data Fasting glucose >/= 126 [...] 2022. Calcium 8.3(L) 8.5 - 10.3 mg/dL [facility] Bilirubin, total 0.3 0.1 - 1.2 mg/dL [facility] Protein, pl 6.8 6.5 - 8.5 g/dL [facility] Albumin 3.0(L) 3.5 - 5.0 g/dL [facility] Alk phos 65 40 - 130 Units/L [facility] ALT 9 7 - 55 Units/L [facility] AST 21 10 - 50 Units/L [facility] Blood 10/10/2024 10:3 2 PM CDT 10/10/2024 11:41 PM CDT Vanessa Sam NP LAB BLOOD ORDERABLES Donita sinha Result [facility] [place] [address] * (ABNORMAL) CBC without differential (10/10/2024 3:25 PM CDT) WBC 6.06 3.80 - 9.90 K/cumm Hgb 12.6(L) 13.0 - 17.5 g/dL [facility] Hct 40.9 38.9 - 50.3 % [facility] Plt 478(H) 150 - 400 K/cumm [facility] MPV 8.7(L) 9.1 - 12.3 fL [facility] RBC 5.03 4.30 - 5.80 M/cumm [facility] MCV 81.3 81.3 - 96.4 fL [facility] MCH 25.0(L) 27.1 - 33.3 pg [facility] MCHC 30.8(L) 32.3 - 35.7 g/dL [facility] RDW CV 22.8(H) 11.1 - 14.9 % [facility] RDW SD 66.7(H) 35.7 - 48.1 fL [facility] NRBC abs 0.00 0.00 - 0.01 K/cumm [facility] Blood 10/10/2024 3:25 PM CDT 10/10/2024 3:57 PM CDT us Edie Licona SPRAY GUN OPERATOR LAB BLOOD ORDERABLES Donita l Result [facility] [place] [address] * Vancomycin level trough Please draw vanc trough 30 minutes before the 4th dose (10/10/2024 3:25 PM CDT) Vancomycin trough 16.3 10.0 - 20.0 mcg/mL Blood 10/10/2024 3:25 PM CDT 10/10/2024 3:39 PM CDT Narrative [facility] - 10/10/2024 4:10 PM CDT Please draw vanc trough 30 minutes before the 4th dose us Bianca Ceja SPRAY GUN OPERATOR LAB BLOOD ORDERABLES Final Result [facility] [place] [address] * X-ray cervical spine 2 or 3 [...] signed by: Guilherme Handley M.D. Jonathan Alston SPRAY GUN OPERATOR IMG XR PROCEDURES Final Result * eGFR [...] Vanessa Sam NP LAB BLOOD ORDERABLES Donita isnha Result [facility] [place] [address] * (ABNORMAL) CBC without differential (10/09/2024 8:59 PM CDT) WBC 13.71(H) 3.80 - 9.90 K/cumm Hgb 8.9(L) 13.0 - 17.5 g/dL [facility] Hct 28.6(L) 38.9 - 50.3 % [facility] Plt 658(H) 150 - 400 K/cumm [facility] MPV 8.4(L) 9.1 - 12.3 fL [facility] RBC 3.48(L) 4.30 - 5.80 M/cumm [facility] MCV 82.2 81.3 - 96.4 fL [facility] MCH 25.6(L) 27.1 - 33.3 pg [facility] MCHC 31.1(L) 32.3 - 35.7 g/dL [facility] RDW CV 23.1(H) 11.1 - 14.9 % [facility] RDW SD 66.5(H) 35.7 - 48.1 fL [facility] NRBC abs 0.00 0.00 - 0.01 K/cumm [facility] Blood 10/09/2024 8:59 PM CDT 10/09/2024 9:34 PM CDT Edie Licona SPRAY GUN OPERATOR LAB BLOOD ORDERABLES Donita l Result Performing Organization Address [facility] Co de Phone Number [facility] [place] [address] * (ABNORMAL) Phosphorus (10/09/2024 8:59 PM CDT) [facility] Phosphorus, pl 2.0(L) 2.3 - 4.5 mg/dL Blood 10/09/2024 8:59 PM CDT 10/09/2024 9:33 PM CDT Deshawn Cornelius MD LAB BLOOD ORDERABLES Final Result Performing Organization Address [facility] Co de Phone Number [facility] [place] [address] * Magnesium (10/09/2024 8:59 PM CDT) [facility] Magnesium 2.2 1.4 - 2.5 mg/dL Blood 10/09/2024 8:59 PM CDT 10/09/2024 9:33 PM CDT Deshawn Cornelius MD LAB BLOOD ORDERABLES Final Result Performing Organization Address [facility] Co de Phone Number [facility] [place] [address] * (ABNORMAL) Comprehensive metabolic panel (10/09/2024 8:59 PM CDT) [facility] Sodium 136 135 - 145 mmol/L Potassium, pl 3.9 3.3 - 4.9 mmol/L [facility] Chloride 102 97 - 110 mmol/L [facility] CO2 27 22 - 32 mmol/L [facility] Anion gap 7 2 - 15 mmol/L [facility] BUN 13 6 - 25 mg/dL [facility] Creatinine 0.75(L) 0.80 - 1.30 mg/dL [facility] Glucose 105 70 - 199 mg/dL [facility] Comment: Interpretive Data Fasting glucose >/= 126 [...] 2022. Calcium 8.5 8.5 - 10.3 mg/dL [facility] Bilirubin, total 0.2 0.1 - 1.2 mg/dL [facility] Protein, pl 7.2 6.5 - 8.5 g/dL [facility] Albumin 2.7(L) 3.5 - 5.0 g/dL [facility] Alk phos 66 40 - 130 Units/L [facility] ALT 10 7 - 55 Units/L [facility] AST 17 10 - 50 Units/L [facility] Blood 10/09/2024 8:59 PM CDT 10/09/2024 9:33 PM CDT Vanessa Sam NP LAB BLOOD ORDERABLES Donita l Result Performing Organization Address City/[facility] Co de Phone Number [facility] [place] [address] * POCT glucose (10/09/2024 8:23 PM CDT) [facility] Glucose, POC 122 70 - 199 mg/dL Blood 10/09/2024 8:23 PM CDT 10/09/2024 8:23 PM CDT Deshawn Cornelius MD LAB POCT ORDERABLES - DEVICE Final Result Performing Organization Address City/State/[facility] Co de Phone Number [facility] [place] [employer] [place] [address] * HIV 1/2 Antibody plus p24 Antigen Blood (10/09/2024 3:30 PM CDT) Pathologist [facility] HIV 1/2 ab + p24 ag Nonreactive [...] ORDERABLES Final Result Performing Organization Address [facility] de Phone Number [facility] [place] [employer] [place] [address] * Hepatitis C antibody Blood (10/09/2024 3:30 PM CDT) [facility] Hep C Ab Nonreactive Nonreactive Comment:Antibodies to HCV no t detected. Does NOT exclude the possibility of recent exposure to HCV. Current interpretive data was last revised on 22 Blood 10/09/2024 3:30 PM CDT 10/09/2024 3:58 PM CDT Vanessa Sam LAB MICROBIOLOGY - GENERA L ORDERABLES Final Result Performing Organization Address [facility] Co de Phone Number [facility] [place] [place] [address] * Hepatitis B core antibody, total Blood (10/09/2024 3:30 PM CDT) [facility] Hep B core IgG/IgM Nonreactive Nonreactive Blood 10/09/2024 3:30 PM CDT 10/09/2024 3:58 PM CDT Vanessa Sam NP LAB MICROBIOLOGY - GENERA L ORDERABLES Final Result Performing Organization Address [facility] de Phone Number [facility] [place] [place] [address] * Hepatitis B surface antibody (immune status) [...] L ORDERABLES Final Result Performing Organization Address [facility] de Phone Number [facility] [place] [place] [address] * Hepatitis B Surface Antigen Blood (10/09/2024 3:30 PM CDT) HepBsAg Nonreactive Nonreactive Blood 10/09/2024 3:30 PM CDT 10/09/2024 3:58 PM CDT Vanessa Savi [place] NP LAB MICROBIOLOGY - GENERA L ORDERABLES Final Result Performing Organization Address [facility] de Phone Number [facility] [place] [place] [address] * Blood culture Blood Antecubital, right (10/09/2024 [...] performance characteristics have been verified by the [facility]biology [facility]. For questions about this culture, contact the Microbiology Laboratory at [phone]. Interpretive data was last revised on 24. Deshawn Cornelius MD LAB MICROBIOLOGY - [facility] ORDERABLES Final Result [facility] PANIAGUA [facility] [place] [address] * Blood culture Blood (10/09/2024 10:05 AM CDT) Report Final Report: No growth Blood 10/09/2024 10:0 5 AM CDT 10/09/2024 12:24 PM [address] Narrative [facility] - 10/13/2024 4:00 PM CDT Collection->Peripheral [...] performance characteristics have been verified by the [facility] Microbiology [facility]. For questions about this culture, contact the Microbiology Laboratory at [phone]. Interpretive data was last revised on 24. Deshawn Cornelius MD LAB MICROBIOLOGY - G ENERAL ORDERABLES Final Result [facility] [place] [address] * eGFR (10/08/2024 9:09 PM CDT) eGFR [...] CDT 10/08/2024 9:43 PM CDT Edie Licona SPRAY GUN OPERATOR LAB BLOOD ORDERABLES Donita l Result [facility] [place] [address] * (ABNORMAL) CBC without differential (10/08/2024 9:09 PM CDT) [facility] WBC 21.01(H) 3.80 - 9.90 K/cumm Hgb 9.0(L) 13.0 - 17.5 g/dL [facility] Hct 28.7(L) 38.9 - 50.3 % [facility] Plt 737(H) 150 - 400 K/cumm [facility] MPV 8.9(L) 9.1 - 12.3 fL [facility] RBC 3.55(L) 4.30 - 5.80 M/cumm [facility] MCV 80.8(L) 81.3 - 96.4 fL [facility] MCH 25.4(L) 27.1 - 33.3 pg [facility] MCHC 31.4(L) 32.3 - 35.7 g/dL [facility] RDW CV 23.4(H) 11.1 - 14.9 % [facility] RDW SD 65.5(H) 35.7 - 48.1 fL [facility] NRBC abs 0.00 0.00 - 0.01 K/cumm [facility] Blood 10/08/2024 9:0 9 PM CDT 10/08/2024 9:44 PM CDT us Edie Licona SPRAY GUN OPERATOR LAB BLOOD ORDERABLES Donita l Result [facility] [place] [address] * Phosphorus (10/08/2024 9:09 PM CDT) [facility] Phosphorus, pl 2.5 2.3 - 4.5 mg/dL Blood 10/08/2024 9:09 PM CDT 10/08/2024 9:43 PM CDT Deshawn Cornelius MD LAB BLOOD ORDERABLES Final Result Performing Organization Address City/[facility]/ZIP Co de Phone Number [facility] [place] [address] * Magnesium (10/08/2024 9:09 PM CDT) [facility] Magnesium 2.4 1.4 - 2.5 mg/dL Blood 10/08/2024 9:09 PM CDT 10/08/2024 9:43 PM CDT Deshawn Cornelius MD LAB BLOOD ORDERABLES Final Result Performing Organization Address [facility] de Phone Number [facility] [place] [address] * (ABNORMAL) Basic metabolic panel (10/08/2024 9:09 PM CDT) [facility] Sodium 133(L) 135 - 145 mmol/L Potassium, pl 4.0 3.3 - 4.9 mmol/L [facility] Chloride 102 97 - 110 mmol/L [facility] CO2 27 22 - 32 mmol/L [facility] Anion gap 4 2 - 15 mmol/L [facility] BUN 17 6 - 25 mg/dL [facility] Creatinine 0.71(L) 0.80 - 1.30 mg/dL [facility] Glucose 124 70 - 199 mg/dL [facility] Comment: Interpretive Data Fasting glucose >/= 126 [...] 2022. Calcium 8.8 8.5 - 10.3 mg/dL [facility] Blood 10/08/2024 9:09 PM CDT 10/08/2024 9:43 PM CDT us Edie Licona SPRAY GUN OPERATOR LAB BLOOD ORDERABLES Donita l Result Performing Organization Address [facility] Co de Phone Number [facility] [place] [address] * Vancomycin level trough Draw trough 30 minutes prior to 4th dose. (10/08/2024 2:34 PM CDT) Vancomycin trough 12.6 10.0 - 20.0 mcg/mL Blood 10/08/2024 2:34 PM CDT 10/08/2024 3:06 PM CDT Narrative [facility] - 10/08/2024 3:35 PM CDT Draw trough 30 minutes prior to 4th dose. Deshawn Cornelius MD LAB BLOOD ORDERABLES Final Result Performing Organization Address [facility] Co de Phone Number [facility] [place] [address] * XR Spine Cervical 2 or 3 [...] swelling. Electronically signed by: Yaw Leigh D.O. us Edie Licona NP IMG XR PROCEDURES Final [...] Ayaka auris DNA Not Detected Not Detected [facility] Comment: Interpretive Data Testing performed by [facility] Molecular Infectious Disease Laboratory using the Doron aga 6800 Ayaka auris assay. This assay detects DNA from Ayaka auris using Real-Time PCR. This assay is laboratory developed and is not cleared by the [facility] Food and Drug Administration. The performance characteristics have been verified by the [facility] Molecular Infectious Disease Laboratory. Axilla/Groin 10/08/2024 10:2 1 AM CDT 10/08/2024 11:28 AM CDT Narrative [facility] - 10/09/2024 12:15 AM CDT Order placed by [facility] due to ring surveillance. us Instant Order Generic Provider LAB MICROBIOLOGY - GENERAL ORDERABLES Final Result [facility] [place] [address] [facility] * Histoplasma Antigen Urine (10/08/2024 10:21 AM CDT) Histo Ag Ur result None Detected None Detected Histo Ag Ur interp Negative Negative [facility] Comment: Result Interpretation: Reference interval: None Detected Results reported as ng/mL in 0.20 - 20.00 ng/mL range Results above 20.00 ng/mL are reported as 'Positive, Above the Limit of Quantification' Testing Performed by: [employer], [address] [place] [address] [place] [address]. This test was developed and its performance characteristics determined by [employer]. It has not been cleared or approved [...] - G ENERAL ORDERABLES Final Result SHEREEN Mcmullen [facility] [place] [address] * Blood culture Blood (10/08/2024 10:21 AM [...] performance characteristics have been verified by the [facility] Microbiology Laboratory. For questions about this culture, contact the Microbiology Laboratory at [phone]. Interpretive data was last revised on 24. Deshawn Cornelius MD LAB MICROBIOLOGY - G ENERAL ORDERABLES Final Result SHEREEN Mcmullen [facility] [place] [address] * Critical Care (10/08/2024 7:37 AM CDT) [...] plan with the ICU team and other medical/informatics consultant staff, making frequent assessments and decisions [...] by: Mitch Rao M.D. us Edie Licona SPRAY GUN OPERATOR IMG XR PROCEDURES Final R esult * (ABNORMAL) Urinalysis reflex to microscopic (10/07/2024 8:08 PM CDT) Color, ur Straw Yellow Clarity, ur Clear Clear [facility] Specific gravity, ur 1.026 1.003 - 1.030 [facility] pH, urine 6.0 [facility] Comment: Interpretive Data U rine pH is affected by diet, medications, systemic acid-base disturbances, and renal tubular function. pH may affect urinary stone formation. For example, urine pH below 6.0 may help reduce the tendency for calcium phosphate stones and pH greater than 6.0 may reduce the tendency for uric acid stone formation. Source: [facility] Current Interpretive Data was last revised on 2017 Protein, ur ql 1+(A) Negative [facility] Glucose, ur ql Negative Negative [facility] Ketones, ur 1+(A) Negative [facility] Bilirubin, ur Negative Negative [facility] Blood, ur Trace(A) Negative [facility] Urobilinogen, ur <2.0 <2.0 mg/dL [facility] Nitrite, ur Negative Negative [facility] Leukocyte esterase, ur Negative Negative [facility] UA reflex comment Reflex to microscopic UA will be performed. [facility] Urine 10/07/2024 8:08 PM CDT 10/07/2024 9:40 PM CDT us Chong [place] SPRAY GUN OPERATOR LAB URINE ORDERABLES Fi nal Result Performing Organization Address [facility] Co de Phone Number SHEREEN [facility] [place] [address] * (ABNORMAL) Urinalysis, microscopic only (10/07/2024 8:08 PM CDT) WBC, ur 6-10(A) 0 - 5 /HPF RBC, ur 21-50(A) 0 - 2 /HPF [facility] Epithelial cells, squamous, ur 1-5 0 - 5 /HPF [facility] Bacteria, ur Trace(A) [facility] Mucous, ur Present(A) [facility] Uric acid crystals, ur Trace(A) [facility] Hyaline casts, ur 1-5 0 - 10 /LPF [facility] Urine 10/07/2024 8:08 PM CDT 10/07/2024 9:40 PM CDT us Chong Hutchinson SPRAY GUN OPERATOR LAB URINE ORDERABLES Fi nal Result Performing Organization Address [facility] Co de Phone Number [facility] [place] [address] * Critical Care (10/07/2024 7:38 PM CDT) [...] plan with the ICU team and other medical/informatics consultant staff, making frequent assessments and decisions [...] - DEVICE Final Result CERNER [facility] [place] [address] * Q fever ab w rflx to immunofluorescence Blood (10/07/2024 7:02 PM CDT) [facility] Q fever ab scrn w titer rflx ser Negative Negative [facility] Comment: No antibodies to Q Fever (Coxiella burnetii) detected. Repeat testing on a new sample collected in 2-3 weeks if acute Q Fever is suspected. ADDITIONAL INFORMATION This test was developed and its performance characteristics determined by [facility] in a manner consistent with CLIA requirements. This test has not been cleared or approved by the U.S. Food and Drug Administration. Test Performed by: [facility] - [address] [address] Assistant Analyst: Leia Ocasio Ph.D.; CLIA# [id number] Blood 10/07/2024 7:02 PM CDT 10/07/2024 7:57 PM CDT us Kelli Landry MD LAB MICROBIOLOGY - GENE RAL ORDERABLES Final Result Performing Organization Address City/[facility] Co de Phone Number [facility] [place] [address] [facility] * Histoplasma Antibody Blood (10/07/2024 7:02 PM CDT) Pathologist [facility] Histoplasma Ab, yeast CF Negative Negative [facility] Histoplasma Ab, Immunodiffusion Negative Negative [facility] Comment: A negative complement fixation and immunodiffusion (CF/ID) result does not exclude the diagnosis of histoplasmosis. Repeat testing by CF/ID in 1-2 weeks if clinically indicated. Test Performed by: [place] [address] Assistant Analyst: Leia Ocasio Ph.D.; CLIA# [id number] Blood 10/07/2024 7:02 PM CDT 10/07/2024 9:15 PM CDT us Kelli Landry MD LAB MICROBIOLOGY - GENE RAL ORDERABLES Final Result Performing Organization Address [facility] Co de Phone Number [facility] [place] [employer] [place] [address] [facility] * Potassium, whole blood (10/07/2024 7:02 PM CDT) Pathologist [facility] Potassium, bld 4.4 3.3 - 4.9 mmol/L Blood 10/07/2024 7:02 PM CDT 10/07/2024 7:10 PM CDT us Chong [place] NP LAB BLOOD ORDERABLES Fi nal Result Performing Organization Address City/[facility] Co de Phone Number [facility] [place] [address] * Calcium, ionized, whole blood (10/07/2024 7:02 PM CDT) Ca, ionized, bld 5.05 4.50 - 5.10 mg/dL Blood 10/07/2024 7:02 PM CDT 10/07/2024 7:10 PM CDT Chong Hutchinson NP LAB BLOOD ORDERABLES Fi nal Result Performing Organization Address [facility] Co de Phone Number [facility] [place] [employer] [place] [address] * eGFR (10/07/2024 7:02 PM CDT) eGFR [...] ORDERABLES Fi nal Result Performing Organization Address City/[facility]/ZIP Co de Phone Number [facility] Department [place] [address] * (ABNORMAL) Lactate, whole blood (10/07/2024 7:02 PM CDT) Lactate, bld 0.5(L) 0.7 - 2.0 mmol/L Comment:REVIEWED Blood 10/07/2024 7:02 PM CDT 10/07/2024 7:10 PM CDT Chong Hutchinson SPRAY GUN OPERATOR LAB BLOOD ORDERABLES Fi nal Result Performing Organization Address [facility] de Phone Number [facility] [employer] [address] * aPTT (10/07/2024 7:02 PM CDT) aPTT 33 28 - 38 sec Comment: Interpretive Data Heparin therapeutic range: 66.0 - 100.0 seconds. Range based on correlation with therapeutic heparin activity range of 0.3 - 0.7 Units/mL. Current interpretive data was last revised on 2023. Blood 10/07/2024 7:02 PM CDT 10/07/2024 7:20 PM CDT Result [facility] Chong Hutchinson NP LAB BLOOD ORDERABLES Fi nal Result Performing Organization Address [facility] de Phone Number [facility] [place] [address] * (ABNORMAL) Protime-INR (10/07/2024 7:02 PM CDT) PT 15.0(H) 9.7 - 13.0 sec INR 1.38(H) 0.90 - 1.20 [facility] Comment: Interpretive data Oral anticoagulant therapeutic ranges: Venous thromboembolism prophylaxis or treatment: 2.0-3.0 CARDIOLOGY Standard range: 2.0-3.0 High-intensity range: 2.5-3.5 Refer to indication-specific guidelines for appropriate target ranges for prosthetic heart valve replacement. Current interpretive data was last revised on 2019. Blood 10/07/2024 7:02 PM CDT 10/07/2024 7:20 PM CDT us Chong Hutchinson NP LAB BLOOD ORDERABLES Fi nal Result Performing Organization Address [facility]/ZIP Co de Phone Number [facility] [place] [address] * (ABNORMAL) CBC without differential (10/07/2024 7:02 PM CDT) WBC 14.98(H) 3.80 - 9.90 K/cumm Hgb 9.0(L) 13.0 - 17.5 g/dL [facility] Hct 29.1(L) 38.9 - 50.3 % [facility] Plt 594(H) 150 - 400 K/cumm [facility] MPV 8.7(L) 9.1 - 12.3 fL [facility] RBC 3.56(L) 4.30 - 5.80 M/cumm [facility] MCV 81.7 81.3 - 96.4 fL [facility] MCH 25.3(L) 27.1 - 33.3 pg [facility] MCHC 30.9(L) 32.3 - 35.7 g/dL [facility] RDW CV 23.5(H) 11.1 - 14.9 % [facility] RDW SD 68.2(H) 35.7 - 48.1 fL [facility] NRBC abs 0.00 0.00 - 0.01 K/cumm [facility] Blood 10/07/2024 7:02 PM CDT 10/07/2024 7:32 PM CDT us Chong Hutchinson NP LAB BLOOD ORDERABLES Fi nal Result Performing Organization Address City/[facility]/ZIP Co de Phone Number [facility] [place] [address] * Phosphorus (10/07/2024 7:02 PM CDT) [facility] Phosphorus, pl 3.7 2.3 - 4.5 mg/dL Blood 10/07/2024 7:02 PM CDT 10/07/2024 7:32 PM CDT Chong Hutchinson SPRAY GUN OPERATOR LAB BLOOD ORDERABLES Fi nal Result Performing Organization Address City/[facility]/ZIP Co de Phone Number [facility] [place] [address] * Magnesium (10/07/2024 7:02 PM CDT) [facility] Magnesium 2.1 1.4 - 2.5 mg/dL Blood 10/07/2024 7:02 PM CDT 10/07/2024 7:32 PM CDT Chong Hutchinson SPRAY GUN OPERATOR LAB BLOOD ORDERABLES Fi nal Result Performing Organization Address [facility] de Phone Number [facility] [place] [place] [address] * (ABNORMAL) Basic metabolic panel (10/07/2024 7:02 PM CDT) [facility] Sodium 136 135 - 145 mmol/L Potassium, pl 4.3 3.3 - 4.9 mmol/L [facility] Chloride 103 97 - 110 mmol/L [facility] CO2 23 22 - 32 mmol/L [facility] Anion gap 10 2 - 15 mmol/L [facility] BUN 14 6 - 25 mg/dL [facility] Creatinine 0.71(L) 0.80 - 1.30 mg/dL [facility] Glucose 125 70 - 199 mg/dL [facility] Comment: Interpretive Data Fasting glucose >/= 126 [...] LAB BLOOD ORDERABLES Fi nal Result [facility]EN [facility] [place] [address] * Critical Care (10/07/2024 6:12 PM CDT) [...] plan with the ICU team and other medical/informatics consultant staff, making frequent assessments and decisions [...] in the medical record us Chong Hutchinson SPRAY GUN OPERATOR IN CLINIC/BEDSIDE ORDER [place] Final Result * (ABNORMAL) Tissue aerobic and anaerobic culture and gram stain Tissue Cervical (10/07/2024 6:11 PM CDT) Direct Specimen Exam Stain: No polymorphonuclear leukocytes seen. No organisms seen. Slide reviewed. Review is consistent with original read. Report Final Report: Rare Staphylococcus aureus For susceptibility results, refer to accession number [id number] on the Cervical aspirate culture from 10/08/2024 (.) [facility] Organism STAPHYLOCOCCUS AUREUS [facility] Tissue (Cervical) 10/07/2024 6:11 PM CDT 10/08/2024 8:05 AM CDT Narrative [facility] - 10/13/2024 3:07 PM CDT C1-C2 Joint Tissue Testing performed by [facility] Microbiology Laboratory ([phone]) Specimens submitted from normally sterile body sites [...] ENERAL ORDERABLES Final Result Performing Organization Address City/[facility]/ZIP Co de Phone Number [facility] [place] [address] * FL Fluoroscopy < 1 Hour (10/07/2024 5:40 PM CDT) Narrative [facility] - 10/07/2024 5:48 PM CDT The [...] penicillin binding protein 2a (PBP2a) testing. (.) [facility] Organism STAPHYLOCOCCUS AUREUS [facility] Aspirate (Cervical) 10/07/2024 4:52 PM CDT 10/08/2024 8:04 AM CDT Narrative [facility] - 10/13/2024 3:06 PM CDT C1-C2 Joint Testing performed by [facility] Microbiology Laboratory ([phone]) Specimens submitted from normally sterile body sites [...] ENERAL ORDERABLES Final Result SHEREEN PANIAGUA [facility] [place] [address] * (ABNORMAL) POC Blood Gas and Chemistries, Arterial - (10/07/2024 4:48 PM CDT) pH, Art POC 7.29(L) 7.35 - 7.45 pCO2, Art POC 48(H) 35 - 45 mmHg [facility] pO2, Art POC 233(H) 83 - 108 mmHg [facility] Na, POC 136 135 - 145 mmol/L [facility] K POC 4.0 3.3 - 4.9 mmol/L [facility] Comment: Interpretive Data Not all point of care methods assess for hemolysis. Confirm with instrument and retest K+ if not consistent with clinical signs and symptoms. Current Interpretive Data was last revised on 2023. Cl, POC 108 97 - 110 mmol/L [facility] Ionized Ca, POC 5.18(H) 4.50 - 5.10 mg/dL [facility] Glucose, POC 123 70 - 199 mg/dL [facility] Lactate POC 0.7 0.7 - 2.0 mmol/L [facility] SO2 (ramesh) arterial 99(H) 90 - 95 % [facility] Base excess, POC -3.5 mmol/L [facility] Hct, POC 28.0(L) 41.4 - 51.6 % [facility] Total Hb, POC 9.2(L) 13.8 - 17.2 g/dL [facility] Blood 10/07/2024 4:48 PM CDT 10/07/2024 4:48 PM CDT us Deshawn Cornelius MD LAB POCT ORDERABLES - DEVICE Final Result [facility] [place] [address] * Tissue aerobic and anaerobic culture and gram stain Tissue Cervical (10/07/2024 3:57 PM CDT) Direct Specimen Exam Stain: No polymorphonuclear leukocytes seen. No organisms seen. Report Final Report: No growth [facility] Tissue (Cervical) 10/07/2024 3:57 PM CDT 10/07/2024 5:[address] [facility] - 10/12/2024 10:30 AM CDT Paraspinal tissue Received in transport media. Specimen collected in the operating room. Testing performed by [facility] Microbiology Laboratory ([phone]) Specimens submitted from normally sterile body sites [...] MICROBIOLOGY - G ENERAL ORDERABLES Final Result [facility] [place] [address] * RI AN PROCEDURE PLACEHOLDER (10/07/2024 3:38 PM CDT) [...] MD ANESTHESIA ORDERABLES Fi nal Result * RI AN PROCEDURE PLACEHOLDER (10/07/2024 3:37 PM CDT) [...] MD ANESTHESIA ORDERABLES Fi nal Result * RI AN ELECTIVE ENDOTRACHEAL AIRWAY, RI AN PROCEDURE PLACEHOLDER (10/07/2024 3:36 PM CDT) Narrative Belkis Lockett CRNA - 10/07/2024 3:36 PM CDT Belkis Lockett CRNA 10/07/2024 3:42 PM Airway Patient location: OR Urgency: elective Indications for airway management: anesthesia Difficult airway: no Staff: Supervising provider: Kenya Hernandez MD Placed by: TALENT DEVELOPMENT ANALYST: Belkis Lockett CRNA Emergent airway documentation: Risks [...] AM CDT Narrative 10/07/2024 1:[address] [facility] [place] [address] Transthoracic Echocardiographic Report Patient Name: SABINO PACHECO : 1945 (79y 7m) Gender: M Study Date: 10/07/2024 11:09:18 AM Ht(Inch): 72 Wt(Lb): 164.9 BSA: 1.95 Transportation Equipment Painter: Cecily Hernandez RDCS Location: [id number] Order Provider: DESHAWN CORNELIUS BMI: 22.36 BP: [...] Procedure Note Yaw Gan MD - 10/07/2024 [facility] [place] [address] Transthoracic Echocardiographic Report Patient Name: SABINO PACHECO : 1945 (79y 7m) Gender: M Study Date: 10/07/2024 11:09:18 AM Ht(Inch): 72 Wt(Lb): 164.9 BSA: 1.95 Transportation Equipment Painter: Cecily Hernandez RDCS Location: [id number] Order Provider:DESHAWN CORNELIUS BMI: 22.36 BP: 119 [...] - DEVICE Final Result [facility] [place] [address] * Critical Care (10/07/2024 11:20 AM CDT) [...] plan with the ICU team and other medical/informatics consultant staff, making frequent assessments and decisions [...] and read back by: Chong Hutchinson NP ([phone]) on 10/08/2024 04:52:04 by: Yaw Griffith MT Direct Specimen Exam Stain: Gram Positive Cocci in clusters Time to culture positivity (anaerobic media): 15.5 hours Notification of: Gram Positive Cocci in clusters called to and read back by: Chong Hutchinson NP [phone] on 10/08/2024 02:50:21 by: Lizbeth Robles [place] [facility] Report Final Report: Staphylococcus aureus Methicillin susceptible (MSSA) by penicillin binding protein 2a (PBP2a) testing. (.) [facility] Organism STAPHYLOCOCCUS AUREUS [facility] Blood 10/07/2024 9:56 AM CDT 10/07/2024 10:13 AM CDT Narrative [facility] - 10/13/2024 8:13 AM CDT Collection->Peripheral 1. [...] performance characteristics have been verified by the [facility] Microbiology Laboratory. For questions about this culture, contact the Microbiology Laboratory at [phone]. Interpretive data was last revised on 24. [...] Susceptible Deshawn Cornelius MD LAB [facility] ORDERABLES Final Result [facility] [place] [address] * Blood culture Blood (10/07/2024 9:56 AM CDT) Report Final Report: No growth Blood 10/07/2024 9:56 AM CDT 10/07/2024 10:13 AM CDT Narrative [facility] - 10/11/2024 12:01 PM CDT Collection->Peripheral [...] performance characteristics have been verified by the [facility] Microbiology Laboratory. For questions about this culture, contact the Microbiology Laboratory at [phone]. Interpretive data was last revised on 24. Deshawn Cornelius MD LAB MICROBIOLOGY - G ENERAL ORDERABLES Final Result Performing Organization Address City/[facility] Co de Phone Number [facility] Department [place] [address] * POCT glucose (10/07/2024 7:40 AM CDT) Glucose, POC 106 70 - 199 mg/dL Blood 10/07/2024 7:40 AM CDT 10/07/2024 7:40 AM CDT Deshawn Cornelius MD LAB POCT ORDERABLES - DEVICE Final Result Performing Organization Address [facility] Co de Phone Number [facility] Department [place] [address] * (ABNORMAL) CRP (acute phase) (10/07/2024 3:28 AM CDT) CRP 248.0(H) <=10.0 mg/L Blood 10/07/2024 3:28 AM CDT 10/07/2024 5:12 AM CDT Deshawn Cornelius MD LAB BLOOD ORDERABLES Final Result Performing Organization Address [facility] Co de Phone Number [facility] [place] [address] * POCT glucose (10/07/2024 2:53 AM CDT) Glucose, POC 112 70 - 199 mg/dL Blood 10/07/2024 2:53 AM CDT 10/07/2024 2:53 AM CDT Deshawn Cornelius MD LAB POCT ORDERABLES - DEVICE Final Result Performing Organization Address [facility] Hospital/ZIP Co de Phone Number [facility] [place] [address] * ECG 12 lead (10/07/2024 2:17 AM CDT) [facility] Ventricular Rate EKG/Min 86 BPM [facility] Atrial Rate [address] [facility] QRS-Interval (MSEC) 100 ms [facility] QT-Interval (MSEC) 412 ms [facility] QTc [address] [facility] P [place] [address] [facility] R [place] -[address] [facility] T [place] [address] [facility] Diagnosis Sinus tachycardia with 2nd degree A-V block (Mobitz I) Left anterior fascicular block Prolonged QT Abnormal ECG No previous ECGs available Confirmed by EVELIN GREEN M.D ([id number]) on 10/07/2024 11:51:[address] [facility] 10/07/2024 2:17 AM CDT 10/07/2024 11:51 AM CDT Deshawn Cornelius MD ECG ORDERABLES Donita l Result [facility] * POCT glucose (10/06/2024 11:05 PM CDT) Glucose, POC 112 70 - 199 mg/dL Blood 10/06/2024 11:0 5 PM CDT 10/06/2024 11:05 PM CDT Deshawn Cornelius MD LAB POCT ORDERABLES - DEVICE Final Result [facility] [place] [address] * Critical Care (10/06/2024 7:28 PM CDT) [...] plan with the ICU team and other medical/informatics consultant staff, making frequent assessments and decisions [...] 96 70 - 199 mg/dL Blood 10/06/2024 7:0 9 PM CDT 10/06/2024 7:09 PM CDT us Deshawn Cornelius MD LAB POCT ORDERABLES - DEVICE Final Result [facility] [place] [address] * Critical Care (10/06/2024 6:30 PM CDT) [...] plan with the ICU team and other medical/informatics consultant staff, making frequent assessments and decisions [...] CDT 10/06/2024 6:35 PM CDT Narrative SH[facility]EN [facility]REPO - 10/11/2024 7:01 AM CDT Collection->Peripheral 1. [...] performance characteristics have been verified by the [facility] Microbiology Laboratory. For questions about this culture, contact the Microbiology Laboratory at [phone]. Interpretive data was last revised on 24. Deshawn Cornelius MD LAB MICROBIOLOGY - G ENERAL ORDERABLES Final Result [facility] Department [place] [address] * POCT glucose (10/06/2024 6:09 PM CDT) Glucose, POC 104 70 - 199 mg/dL Blood 10/06/2024 6:09 PM CDT 10/06/2024 6:09 PM CDT Deshawn Cornelius MD LAB POCT ORDERABLES - DEVICE Final Result [facility] Department [place] [address] * Lactate (10/06/2024 6:08 PM CDT) Lactate 1.2 0.7 - 2.0 mmol/L Blood 10/06/2024 6:08 PM CDT 10/06/2024 6:19 PM CDT Deshawn Cornelius MD LAB BLOOD ORDERABLES Final Result Performing Organization Address [facility] Co de Phone Number [facility] [place] [address] * eGFR (10/06/2024 6:08 PM CDT) eGFR [...] MD LAB BLOOD ORDERABLES Final Result [facility] [place] [address] * (ABNORMAL) Differential, auto (10/06/2024 6:08 PM CDT) Neutrophil abs 11.22(H) 1.50 - 6.50 K/cumm Imm gran abs 0.11(H) 0.00 - 0.10 K/cumm [facility] Lymphocyte abs 1.12 0.80 - 3.30 K/cumm [facility] Monocyte abs 1.38(H) 0.20 - 0.80 K/cumm [facility] Eosinophil abs 0.01 0.00 - 0.50 K/cumm [facility] Basophil abs 0.05 0.00 - 0.10 K/cumm [facility] Neutrophil pct 80.7 % [facility] Comment: Interpretive Data Percent cell count reference ranges are not reported, since discordance with absolute values may lead to misinterpretation of CBC data. Current Interpretive Data was last revised on 2017. Imm gran pct 0.8 % [facility] Comment: Interpretive Data Percent cell count reference ranges are not reported, since discordance with absolute values may lead to misinterpretation of CBC data. Current Interpretive Data was last revised on 2017. Lymphocyte pct 8.1 % [facility] Comment: Interpretive Data Percent cell count reference ranges are not reported, since discordance with absolute values may lead to misinterpretation of CBC data. Current Interpretive Data was last revised on 2017. Monocyte pct 9.9 % [facility] Comment: Interpretive Data Percent cell count reference ranges are not reported, since discordance with absolute values may lead to misinterpretation of CBC data. Current Interpretive Data was last revised on 2017. Eosinophil pct 0.1 % [facility] Comment: Interpretive Data Percent cell count reference ranges are not reported, since discordance with absolute values may lead to misinterpretation of CBC data. Current Interpretive Data was last revised on 2017. Basophil pct 0.4 % [facility] Comment: Interpretive Data Percent cell count reference ranges are not reported, since discordance with absolute values may lead to misinterpretation of CBC data. Current Interpretive Data was last revised on 2017. Blood 10/06/2024 6:08 PM CDT 10/06/2024 6:19 PM CDT us Deshawn Cornelius MD LAB BLOOD ORDERABLES Final Result [facility] [place] [address] * (ABNORMAL) CBC with auto differential (10/06/2024 6:08 PM CDT) [facility] WBC 13.89(H) 3.80 - 9.90 K/cumm Hgb 10.1(L) 13.0 - 17.5 g/dL [facility] Hct 32.4(L) 38.9 - 50.3 % [facility] Plt 636(H) 150 - 400 K/cumm [facility] MPV 8.6(L) 9.1 - 12.3 fL [facility] RBC 4.00(L) 4.30 - 5.80 M/cumm [facility] MCV 81.0(L) 81.3 - 96.4 fL [facility] MCH 25.3(L) 27.1 - 33.3 pg [facility] MCHC 31.2(L) 32.3 - 35.7 g/dL [facility] RDW CV 23.6(H) 11.1 - 14.9 % [facility] RDW SD 67.4(H) 35.7 - 48.1 fL [facility] NRBC abs 0.00 0.00 - 0.01 K/cumm [facility] Blood 10/06/2024 6:08 PM CDT 10/06/2024 6:19 PM CDT Deshawn Cornelius MD LAB BLOOD ORDERABLES Final Result [facility] [place] [address] * (ABNORMAL) Vitamin D 25 hydroxy (10/06/2024 6:08 PM CDT) [facility] Vitamin D 25-OH 28(L) 30 - 80 ng/mL Blood 10/06/2024 6:08 PM CDT 10/06/2024 6:19 PM CDT Deshawn Cornelius MD LAB BLOOD ORDERABLES Final Result [facility] [place] [address] * Blood culture Blood (10/06/2024 6:08 PM [...] performance characteristics have been verified by the [facility] Microbiology Laboratory. For questions about this culture, contact the Microbiology Laboratory at [phone]. Interpretive data was last revised on 24. Deshawn Cornelius MD LAB MICROBIOLOGY - G ENERAL ORDERABLES Final Result Performing Organization Address City/[facility]/ZIP Co de Phone Number [facility] [place] [address] * (ABNORMAL) CRP (acute phase) (10/06/2024 6:08 PM CDT) CRP 226.0(H) <=10.0 mg/L Blood 10/06/2024 6:08 PM CDT 10/06/2024 6:19 PM CDT Deshawn Cornelius MD LAB BLOOD ORDERABLES Final Result Performing Organization Address [facility] Co de Phone Number [facility] [place] [employer] [place] [address] * Phosphorus (10/06/2024 6:08 PM CDT) [facility] Phosphorus, pl 3.3 2.3 - 4.5 mg/dL Blood 10/06/2024 6:08 PM CDT 10/06/2024 6:19 PM CDT Deshawn Cornelius MD LAB BLOOD ORDERABLES Final Result Performing Organization Address [facility] Co de Phone Number [facility] [place] [employer] [place] [address] * Magnesium (10/06/2024 6:08 PM CDT) [facility] Magnesium 2.3 1.4 - 2.5 mg/dL Blood 10/06/2024 6:08 PM CDT 10/06/2024 6:19 PM CDT Deshawn Cornelius MD LAB BLOOD ORDERABLES Final Result Performing Organization Address [facility] de Phone Number [facility] [place] [address] * (ABNORMAL) Comprehensive metabolic panel (10/06/2024 6:08 PM CDT) [facility] Sodium 137 135 - 145 mmol/L Potassium, pl 3.8 3.3 - 4.9 mmol/L [facility] Chloride 102 97 - 110 mmol/L [facility] CO2 24 22 - 32 mmol/L [facility] Anion gap 11 2 - 15 mmol/L [facility] BUN 13 6 - 25 mg/dL [facility] Creatinine 0.89 0.80 - 1.30 mg/dL [facility] Glucose 101 70 - 199 mg/dL [facility] Comment: Interpretive Data Fasting glucose >/= 126 [...] 2022. Calcium 9.1 8.5 - 10.3 mg/dL [facility] Bilirubin, total 0.4 0.1 - 1.2 mg/dL [facility] Protein, pl 8.1 6.5 - 8.5 g/dL [facility] Albumin 3.2(L) 3.5 - 5.0 g/dL [facility] Alk phos 79 40 - 130 Units/L [facility] ALT 14 7 - 55 Units/L [facility] AST 24 10 - 50 Units/L [facility] Blood 10/06/2024 6:08 PM CDT 10/06/2024 6:19 PM CDT Deshawn Cornelius MD LAB BLOOD ORDERABLES Final Result [facility] [place] [address] * Critical Care (10/06/2024 6:00 PM CDT) [...] plan with the ICU team and other medical/informatics consultant staff, making frequent assessments and decisions [...] IN CLINIC/BEDSIDE ORDER [place] Final Result * RI CRITICAL CARE ILL/INJURED PATIENT INIT 30-74 MIN [...] 5:06 PM CDT) ABO Rh O Positive [facility] HCLL OTHER 10/06/2024 5:06 PM CDT 10/06/2024 5:19 PM CDT us Pan Leiva MD LAB BLOOD ORDERABLES Donita l Result [facility] [place] [address] BJ * (ABNORMAL) PTH (10/06/2024 5:06 PM CDT) PTH 11(L) 15 - 65 pg/mL Blood 10/06/2024 5:06 PM CDT 10/06/2024 5:22 PM CDT Mercedes Montenegro NP LAB BLOOD ORDERABLES Fi nal Result Performing Organization Address [facility] Co de Phone Number [facility] [place] [address] * MRI Spine Total Complete W WO [...] by: Bhargavi Hall M.D. Pan Leiva MD [facility] [place] PROCEDURES Final Result * MRI Brain [...] only and have not been reviewed by [facility]. There will be no report generated by a [facility]iologist. Narrative [id number] - 10/06/2024 1:07 PM [...] images may or may not represent the [place] source data set and thus may contain changes that may lower the accuracy of this second-opinion interpretation. Electronically signed by: Rich Mlahotra MD, PHD Narrative 10/06/2024 1:34 PM CDT EXAMINATION: RADIOLOGY CONSULTATION ON OUTSIDE IMAGING STUDY STUDY INITIALLY PERFORMED: 08/09/2024 at [facility]. TYPE OF STUDY: Multiple CT images [...] demonstrate central calcifications in keeping with granulomas. Auto R[employer] noncalcified nodules include an 8 mm left [...] IMAGING STUDY STUDY INITIALLY PERFORMED: 08/09/2024 at [facility]. TYPE OF STUDY: Multiple CT images [...] demonstrate central calcifications in keeping with granulomas. [employer] noncalcified nodules include an 8 mm left [...] images may or may not represent the [place] source data set and thus may contain [...] report of this study generated by a [facility]iologist. Electronically signed by: Yaw Tsai M.D. [...] report of this study generated by a [facility]iologist. Electronically signed by: Yaw Tsai M.D. [...] images may or may not represent the [place] source data set and thus may contain [...] IMAGING STUDY STUDY INITIALLY PERFORMED: 10/06/2024 at [facility]. TYPE OF STUDY: Multiple CTA images [...] IMAGING STUDY STUDY INITIALLY PERFORMED: 10/06/2024 at [facility]. TYPE OF STUDY: Multiple CTA images [...] images may or may not represent the [place] source data set and thus may contain [...] images may or may not represent the [place] source data set and thus may contain [...] IMAGING STUDY STUDY INITIALLY PERFORMED: 10/06/2024 at [facility]. TYPE OF STUDY: Multiple CTA images [...] IMAGING STUDY STUDY INITIALLY PERFORMED: 10/06/2024 at [facility]. TYPE OF STUDY: Multiple CTA images [...] images may or may not represent the [place] source data set and thus may contain [...] ed Result - Final Performing Organization Address City/[facility]/ZIP Co de Phone Number [facility] Department [place] [address] * (ABNORMAL) Thromboelastometry Panel - Intrinsic (10/06/2024 11:14 AM CDT) INTEM-CT 194 139 - 205 sec INTEM-A5 65(H) 36 - 54 mm [facility] INTEM-A10 73(H) 46 - 63 mm [facility] INTEM-A20 78(H) 53 - 68 mm [facility] INTEM-MCF 79(H) 55 - 70 mm [facility] INTEM-LI60 99 93 - 100 % [facility] INTEM-ML 2 0 - 7 % [facility] Blood 10/06/2024 11:1 4 AM CDT 10/06/2024 11:24 AM CDT us Pan Leiva MD LAB BLOOD ORDERABLES Edit ed Result - Final [facility] [place] [address] * Thromboelastometry Panel - Fibrinogen (10/06/2024 11:14 AM CDT) FIBTEM-A5 See Comment 5 - 16 Comment:Credited, laboratory instrument error. FIBTEM-A10 See Comment 6 - 17 [facility] Comment:Credited, laboratory instrument error. FIBTEM-A20 See Comment 6 - 18 [facility] Comment:Credited, laboratory instrument error. FIBTEM-MCF See Comment 9 - 19 [facility] Comment:Credited, laboratory instrument error. Blood 10/06/2024 11:1 4 AM CDT 10/06/2024 11:24 AM CDT Pan Leiva MD LAB BLOOD ORDERABLES Edit ed Result - Final Performing Organization Address City/[facility] Co de Phone Number [facility] Department [place] [place] [address] * (ABNORMAL) Thromboelastometry Panel - Extrinsic (10/06/2024 11:14 AM CDT) EXTEM-CT 72 51 - 73 sec EXTEM-A5 68(H) 33 - 52 mm [facility] EXTEM-A10 76(H) 45 - 62 mm [facility] EXTEM-A20 81(H) 54 - 69 mm [facility] EXTEM-MCF >82 57 - [address] [facility] EXTEM-LI60 100 94 - 100 % [facility] EXTEM-ML 1 0 - 6 % [facility] Blood 10/06/2024 11:1 4 AM CDT 10/06/2024 11:24 AM CDT Pan Leiva MD LAB BLOOD ORDERABLES Edit ed Result - Final Performing Organization Address City/[facility] Co de Phone Number [facility] [place] [employer] [place] [address] * (ABNORMAL) Differential, auto (10/06/2024 11:14 AM CDT) Neutrophil abs 10.16(H) 1.50 - 6.50 K/cumm Imm gran abs 0.05 0.00 - 0.10 K/cumm [facility] Lymphocyte abs 1.34 0.80 - 3.30 K/cumm [facility] Monocyte abs 1.35(H) 0.20 - 0.80 K/cumm [facility] Eosinophil abs 0.01 0.00 - 0.50 K/cumm [facility] Basophil abs 0.05 0.00 - 0.10 K/cumm [facility] Neutrophil pct 78.4 % [facility] Comment: Interpretive Data Percent cell count reference ranges are not reported, since discordance with absolute values may lead to misinterpretation of CBC data. Current Interpretive Data was last revised on 2017. Imm gran pct 0.4 % [facility] Comment: Interpretive Data Percent cell count reference ranges are not reported, since discordance with absolute values may lead to misinterpretation of CBC data. Current Interpretive Data was last revised on 2017. Lymphocyte pct 10.3 % [facility] Comment: Interpretive Data Percent cell count reference ranges are not reported, since discordance with absolute values may lead to misinterpretation of CBC data. Current Interpretive Data was last revised on 2017. Monocyte pct 10.4 % [facility] Comment: Interpretive Data Percent cell count reference ranges are not reported, since discordance with absolute values may lead to misinterpretation of CBC data. Current Interpretive Data was last revised on 2017. Eosinophil pct 0.1 % [facility] Comment: Interpretive Data Percent cell count reference ranges are not reported, since discordance with absolute values may lead to misinterpretation of CBC data. Current Interpretive Data was last revised on 2017. Basophil pct 0.4 % [facility] Comment: Interpretive Data Percent cell count reference ranges are not reported, since discordance with absolute values may lead to misinterpretation of CBC data. Current Interpretive Data was last revised on 2017. Blood 10/06/2024 11:1 4 AM CDT 10/06/2024 11:24 AM CDT us Pan Leiva MD LAB BLOOD ORDERABLES Donita l Result [facility] [place] [address] * (ABNORMAL) CBC with auto differential (10/06/2024 11:14 AM CDT) WBC 12.96(H) 3.80 - 9.90 K/cumm Comment:Code Blue Specimen C ode Blue Specimen Hgb 10.2(L) 13.0 - 17.5 g/dL [facility] Hct 32.2(L) 38.9 - 50.3 % [facility] Plt 607(H) 150 - 400 K/cumm [facility] MPV 8.6(L) 9.1 - 12.3 fL [facility] RBC 4.01(L) 4.30 - 5.80 M/cumm [facility] MCV 80.3(L) 81.3 - 96.4 fL [facility] MCH 25.4(L) 27.1 - 33.3 pg [facility] MCHC 31.7(L) 32.3 - 35.7 g/dL [facility] RDW CV 23.6(H) 11.1 - 14.9 % [facility] RDW SD 67.2(H) 35.7 - 48.1 fL [facility] NRBC abs 0.00 0.00 - 0.01 K/cumm [facility] Blood 10/06/2024 11:1 4 AM CDT 10/06/2024 11:24 AM CDT Pan Leiva MD LAB BLOOD ORDERABLES Donita l Result [facility] [place] [address] * aPTT (10/06/2024 11:14 AM CDT) aPTT 32 28 - 38 sec Comment: Code Blue Specimen Interpretive Data Heparin therapeutic range: 66.0 - 100.0 seconds. Range based on correlation with therapeutic heparin activity range of 0.3 - 0.7 Units/mL. Current interpretive data was last revised on 2023. Blood 10/06/2024 11:1 4 AM CDT 10/06/2024 11:24 AM CDT Pan Leiva MD LAB BLOOD ORDERABLES Donita l Result Performing Organization Address City/[facility] Co de Phone Number [facility] [place] [address] * (ABNORMAL) Erythrocyte sedimentation rate (10/06/2024 11:14 AM CDT) Erythrocyte sedimentation rate 98(H) 1 - 20 mm/hr Blood 10/06/2024 11:1 4 AM CDT 10/06/2024 11:27 AM CDT Pan Leiva MD LAB BLOOD ORDERABLES Donita l Result Performing Organization Address [facility] de Phone Number [facility] [place] [employer] [address] * (ABNORMAL) Protime-INR (10/06/2024 11:14 AM CDT) PT 14.6(H) 9.7 - 13.0 sec Comment:Code Blue Specimen INR 1.34(H) 0.90 - 1.20 [facility] Comment: Code Blue Specimen Interpretive data Oral anticoagulant therapeutic ranges: Venous thromboembolism prophylaxis or treatment: 2.0-3.0 CARDIOLOGY Standard range: 2.0-3.0 High-intensity range: 2.5-3.5 Refer to indication-specific guidelines for appropriate target ranges for prosthetic heart valve replacement. Current interpretive data was last revised on 2019. Blood 10/06/2024 11:1 4 AM CDT 10/06/2024 11:24 AM CDT Pan Leiva MD LAB BLOOD ORDERABLES Donita l Result [facility] [place] [address] * Type and screen (10/06/2024 11:14 AM CDT) ABO Rh O Positive Thomas, indirect Negative [facility] Blood 10/06/2024 11:1 4 AM CDT 10/06/2024 11:30 AM CDT Narrative [facility] - 10/06/2024 12:45 PM CDT Has the patient had Daratumumab or Isatuximab in the past 6 months?->Unknown Pan Leiva MD LAB BLOOD BANK TEST ORDER [place] Final Result Performing Organization Address [facility] Co de Phone Number [facility] [place] [address] * Ethanol (10/06/2024 11:14 AM CDT) Ethanol [...] ORDERABLES Donita l Result Performing Organization Address City/[facility]/ZIP Co de Phone Number [facility] [place] [address] * (ABNORMAL) POC Blood Gas and Chemistries, Venous - (10/06/2024 11:13 AM CDT) pH, Dirk POC 7.45(H) 7.32 - 7.43 pCO2, dirk POC 41 40 - 50 mmHg [facility] pO2, dirk POC 50 mmHg [facility] Na, POC 136 135 - 145 mmol/L [facility] K POC 4.0 3.3 - 4.9 mmol/L [facility] Comment: Interpretive Data Not all point of care methods assess for hemolysis. Confirm with instrument and retest K+ if not consistent with clinical signs and symptoms. Current Interpretive Data was last revised on 2023. Cl, POC 105 97 - 110 mmol/L [facility] Ionized Ca, POC 5.02 4.50 - 5.10 mg/dL [facility] Glucose, POC 126 70 - 199 mg/dL [facility] Lactate POC 1.2 0.7 - 2.0 mmol/L [facility] MetHb, Dirk POC 0.8 0.0 - 1.9 % [facility] O2 Sat, Dirk POC (Ramesh) 79 % [facility] Base excess, POC 4.1 mmol/L [facility] HCO3, Dirk POC 28 20 - 30 mmol/L [facility] Hct, POC 32.0(L) 41.4 - 51.6 % [facility] Total Hb, POC 10.6(L) 13.8 - 17.2 g/dL [facility] Blood 10/06/2024 11:1 3 AM CDT 10/06/2024 11:13 AM CDT us Hanane Marquis MD LAB POCT ORDERABLES - DEVICE Fin al Result [facility] [place] [address] from Last 3 Months Additional Health Concerns Active Problems Noted Date Diagnosed Date Initial Follow-Up Appointment 10/17/2024 Problems In Home Environment 10/17/2024 Insurance [employer] MEDICARE GOLD A[employer] MEDICARE GOLD Advance Directives For more information, please contact: [phone] * Full Code (Latest Code Status on File) Date Activated Date Inactivated Comments 10/06/2024 6:01 PM 10/14/2024 7:56 PM Care Teams [employer] Relationship Specialty Start Date End Date Willi Wyatt DO [address] [place] [address] PCP - General Internal Medicine 10/06/24 Jose M West MD [address] DIV IM INFECTIOUS DISEASE, [address] [place] [address] PCP - Home Infusion Attending Infectious Diseases 10/19/24 Sangeeta Wang, MAIL PROCESSING MACHINE OPERATOR [address] [facility] Mailstop [phone] [place] [address] SHOP Outpatient Envelope Folding Machine Operator 10/17/24 Vishal Marie [facility] Pharmacist Pharmacy 10/18/24
--- OUTSIDE RECORDS SUMMARY | 2024-10-25 21:29 | XMS_ITS | Encounter Summary ---
Author Organization [facility] Healthcare Address [address] [place] [address] Care Team Providers Care Clinical Trial Specialist Name Role Phone Willi Wyatt Primary Care Provider Sangeeta Wang [facility] Unavailable [phone] Bernardino Cooper [facility] Unavailable Unavailabl Vishal Starr [facility] Unavailable Unavail able Jose M West MD Unavailable [phone] Encounter Details Date Type Department Care Team (Late st Contact Info) Description 10/18/2024 Home Infusion [facility] Home Infusion Therapy [address] [place] [address] Bernardino Cooper, [facility] Osteomyelitis of vertebra of cervical [...] materials from doctor or pharmacy Sometimes 10/15/2024 [facility] Utilities Answer Date Recorded In [...] often do you attend chur ch or sabianism services? More than 4 times per year 10/17/2024 Do you belong to any clubs o r organizations such as anglican groups, unions, fraternal or athletic groups, or [...] time in the past 12 m [facility], were you homeless or living [...] into IV catheter as needed (catheter maintenance) 25021 mL 10/18/2024 6 sodium chloride 0.9% flush syringeIndication s: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) Infuse 10 mL IV as needed for line care 01478 mL 10/18/2024 oxacillin IVPB 12,000 mg in 0.9% sodium chloride 500 mL (elastomeric)Kimberlee cations:Osteomyel itis of vertebra of cervical region (HCC) Infuse 500 mL (12,000 mg total) IV daily for 24 hours at 20 mL/hr via elastomeric device. Remove from refrigerator 3-4 hours before administration. 01006 mL 10/14/2024 5 heparin, porcine, PF, 10 [...] support and son is staying with him, [facility] confirmed to be involved. documented as [...] as of this encounter Care Teams Clinical Trial Specialist Relationship Specialty Start Date End Date Willi Wyatt DO [address] [place] [address] PCP - General Internal Medicine 10/06/24 Jose M West MD [address] IM INFECTIOUS DISEASE, [address] [place] [address] PCP - Home Infusion Attending Infectious Diseases 10/19/24 Sangeeta Wang, [facility] [address] [facility] ([facility]) Mailstop [phone] [place] [address] SHOP Outpatient Teacher Theater Arts 10/17/24 Bernardino Cooper, [facility] Pharmacist Pharmacy 10/18/24 10/18/24 Vishal Marie, [facility] Pharmacist Pharmacy 10/18/24 documented as of this encounter
--- OUTSIDE RECORDS SUMMARY | 2024-10-25 21:29 | XMS_ITS | Encounter Summary ---
Author Organization [facility] Healthcare Address [address] [place] [address] Care Team Providers Care Plant Sprayer Name Role Phone Willi Wyatt DO Primary Care Provider [phone] Sangeeta WangW Unavailable [phone] Vishal Marie [facility] Unavailable Unavail able Jose M West MD Unavailable [phone] Reason for Visit * Auth/Cert (Routine) Specialty Diagnoses / Procedures Referred By Macrina t Referred To Contact Referral ID Status Reason Start Date Expiration Date Visits Re quested Visits Authorized [id number] 1 1 Encounter Details Date Type Department Care Team (Late st Contact Info) Description 10/25/2024 1:30 PM CDT Home Care Visit [facility] [address] [address] [address] [place] [address] Casa Warren RN SN HOME VISIT Social [...] materials from doctor or pharmacy Sometimes 10/15/2024 [facility] Utilities Answer Date Recorded In the [...] often do you attend chur ch or islam services? More than 4 times per year 10/17/2024 Do you belong to any clubs o r organizations such as scientology groups, unions, fraternal or athletic groups, or [...] any time in the past 12 m [facility], were you homeless or living in a correction (including now)? No 10/17/2024 Personal Safety Answer [...] support and son is staying with him, [facility] confirmed to be involved. documented as of this encounter Visit Diagnoses Not on filedocumented in this encounter Additional Health Concerns Active Problems Noted Date Diagnosed Date Initial Follow-Up Appointment 10/17/2024 Problems In Home Environment 10/17/2024 documented as of this encounter Home Health Visit - Care Plan Visit Details Visit Type -SN Home Visit Discipline -Longterm Problems Problem Description Start Date Status Goals Interve ntions IV Therapy-Manageme nt, Education, and Maintenance Disciplines: Longterm IV Management, education, and maintenance for home IV therapy. 10/15/2024 Active - 2 problem interventions scheduled/documen erik in this visit Pressure Prevention Disciplines: Skilled Disciplines Pressure Prevention 10/15/2024 Active 1 goal linked to scheduled/documen erik intervention 1 goal intervention scheduled/documen reik in this visit Medications Disciplines: Longterm Management of home medications 10/15/2024 Active 1 goal linked to scheduled/documen erik intervention 2 goal interventions scheduled/documen erik in this visit Monitor patient's vital signs every home health visit Disciplines: Skilled Disciplines, SN, PT, OT, TIN CAN LABORER, MARINE HABITAT RESOURCE SPECIALIST Monitor patient's vital signs every home health [...] Notes Prevent development of pressure injuries Description: adjunct faculty for medical terminology goal: The patient will maintain intact skin [...] visit during episode of care Description: Home rod welder to measure vital signs during every home [...] Education, and Maintenance Completed Dressing changed per [facility] protocol and per MD order. IV Management [...] Completed documented in this encounter Care Teams Plant Sprayer Relationship Specialty Start Date End Date Willi Wyatt DO [address] [facility] [address] [place], [place] [id number] PCP - General Internal Medicine 10/06/24 Jose M West MD [address] IM INFECTIOUS DISEASE, [facility] [address] [place] [address] PCP - Home Infusion Attending Infectious Diseases 10/19/24 Sangeeta Wang LCSW [address] [facility] ([facility]) Mailstop [phone] [place] [address] SHOP Outpatient Fabrication Manager 10/17/24 Vishal Marie [facility] Pharmacist Pharmacy 10/18/24 documented as of this encounter
--- OUTSIDE RECORDS SUMMARY | 2024-10-25 21:29 | XMS_ITS | Encounter Summary ---
Author Organization [facility] Healthcare Address [address] [place] [address] Care Team Providers Care Plastics Process Hand Name Role Phone Willi Wyatt DO Primary Care Provider [phone] Sangeeta WangW Unavailable [phone] Vishal Marie [facility] Unavailable Unavail able Jose M West MD Unavailable [phone] Reason for Visit * Auth/Cert (Routine) Specialty Diagnoses / Procedures Referred By Macrina t Referred To Contact Referral ID Status Reason Start Date Expiration Date Visits Re quested Visits Authorized [id number] 1 1 Encounter Details Date Type Department Care Team (Late st Contact Info) Description 10/25/2024 Home Care Visit [address] [place] [address] Sangeeta Brunson, KIERSTEN SN TRIAGE ENCOUNTER Social [...] materials from doctor or pharmacy Sometimes 10/15/2024 [facility] Utilities Answer Date Recorded [...] often do you attend chur ch or jewish services? More than 4 times per year 10/17/2024 Do you belong to any clubs o r organizations such as baptism groups, unions, fraternal or athletic groups, or [...] any time in the past 12 m [facility], were you homeless or living [...] RN - 10/25/2024 7:03 PM CDT JESSICA W/[facility] SABINO ROCHA [phone] W UNKNOWN 45 RE: PLEASE CALL ME FOR CRITICAL LAB RESULTS. Return call time: 7:06pm Communication details: Lab reports critical potassium of 2.4. Infusion pharmacist paged at 7:08p. Return call from Carrie Ruiz [facility] Infusion Pharmacist who stated she would follow-up [...] support and son is staying with him, [facility] confirmed to be involved. documented as of this encounter Visit Diagnoses Not on filedocumented in this encounter Additional Health Concerns Active Problems Noted Date Diagnosed Date Initial Follow-Up Appointment 10/17/2024 Problems In Home Environment 10/17/2024 documented as of this encounter Home Health Visit - Care Plan Visit Details Visit Type -SN Triage Encoun ter Discipline -Residential Problems Problem Description Start Date Status Goals Interve ntions IV Therapy-Manageme nt, Education, and Maintenance Disciplines: Residential IV Management, education, and maintenance for home IV therapy. 10/15/2024 Active - 2 problem interventions scheduled/documen erik in this visit Pressure Prevention Disciplines: Skilled Disciplines Pressure Prevention 10/15/2024 Active 1 goal linked to scheduled/documen erik intervention 1 goal intervention scheduled/documen erik in this visit Medications Disciplines: Residential Management of home medications 10/15/2024 Active 1 goal linked to scheduled/documen erik intervention 2 goal interventions scheduled/documen erik in this visit Monitor patient's vital signs every home health visit Disciplines: Skilled Disciplines, SN, PT, OT, CORE CARRIER, IC DESIGNER STANDARD CELLS Monitor patient's vital signs every home health [...] Notes Prevent development of pressure injuries Description: superintendent container terminal goal: The patient will maintain intact skin [...] visit during episode of care Description: Home manager surgical to measure vital signs during every home [...] Scheduled documented in this encounter Care Teams Plastics Process Hand Relationship Specialty Start Date End Date Willi Wyatt DO [address] [facility] [address] [place], [place] [id number] PCP - General Internal Medicine 10/06/24 Jose M West MD [address] IM INFECTIOUS DISEASE, [address] [place] [address] PCP - Home Infusion Attending Infectious Diseases 10/19/24 Sangeeta Wang LCSW [address] [facility] ([facility]) Mailstop [phone] [place] [address] SHOP Outpatient Tailer In 10/17/24 Vishal Marie, [facility] Pharmacist Pharmacy 10/18/24 documented as of this encounter
--- OUTSIDE RECORDS SUMMARY | 2024-10-25 21:29 | XMS_ITS | Encounter Summary ---
Author Organization [facility] Healthcare Address [address] [place] [address] Care Team Providers Care Mill Beam Fitter Name Role Phone Willi Wyatt Primary Care Provider [phone] Sangeeta Wang LCSW Unavailable [phone] [facility] Unavailable Unavail able Jose M West MD Unavailable [phone] Reason for Visit * Reason Comments Successful Phone Call Encounter Details Date Type Department Care Team (Late st Contact Info) Description 10/24/2024 SHOP/CHAP Subsequent Outreach [facility] [address] [place] [address] Sangeeta Wang LCSW [address] [facility] ([facility]) Mailstop [phone] [place] [address] Social History Tobacco Use Types [...] doctor or pharmacy Sometimes 10/15/2024 [facility] Utilities Answer Date Recorded In [...] often do you attend chur ch or anabaptism services? More than 4 times per year 10/17/2024 Do you belong to any clubs o r organizations such as methodist groups, unions, fraternal or athletic groups, or [...] any time in the past 12 m [facility], were you homeless or living in [...] medication with his providers. OCM alerted the MASTER FIRE CONTROL TECHNICIAN Dago via [employer]. Sangeeta Wang LCSW documented in this [...] support and son is staying with him, [facility] confirmed to be involved. documented as of this encounter Visit Diagnoses Not on filedocumented in this encounter Additional Health Concerns Active Problems Noted Date Diagnosed Date Initial Follow-Up Appointment 10/17/2024 Problems In Home Environment 10/17/2024 documented as of this encounter Care Teams Mill Beam Fitter Relationship Specialty Start Date End Date Willi Wyatt DO [address] [address] PCP - General Internal Medicine 10/06/24 Jose M West MD [address] IM INFECTIOUS DISEASE, [address] [place] [address] PCP - Home Infusion Attending Infectious Diseases 10/19/24 Sangeeta Wang, BUSINESS PRACTICES OFFICER [address] [facility] ([facility]) Mailstop [phone] [place] [address] SHOP Outpatient Gem Technician 10/17/24 Vishal Marie, [facility] Pharmacist Pharmacy 10/18/24 documented as of this encounter
--- OUTSIDE RECORDS SUMMARY | 2024-10-25 21:29 | XMS_ITS | Encounter Summary ---
Author Organization [facility] Healthcare Address [address] [place] [address] Care Team Providers Care Clinical Transplant Coordinator Name Role Phone Willi Waytt Primary Care Provider [phone] Sangeeta Wang [facility] Unavailable [phone] Vishal Marie [facility] Unavailable Unavail able Jose M West MD Unavailable [phone] Encounter Details Date Type Department Care Team (Late st Contact Info) Description 10/25/2024 1:00 PM CDT Hospital Encounter [address] [address] Social History Tobacco Use Types [...] materials from doctor or pharmacy Sometimes 10/15/2024 [facility] Utilities Answer Date Recorded In the past 12 months has th e [employer], gas, oil, or water company threatened to [...] any clubs o r organizations such as yazidism groups, unions, fraternal or athletic groups, or [...] any time in the past 12 m [facility], were you homeless or living in a long-term (including now)? No 10/17/2024 Personal Safety Answer [...] support and son is staying with him, [facility] confirmed to be involved. documented as of [...] ORDERABLES Final Res ult Performing Organization Address City/Va Hospital/ZIP Co de Phone Number [facility] [place] [address] * Critical Result Callback Chemistry (10/25/2024 1:00 PM CDT) Date Notified 20241025 Time Notified [address] [facility] TestName Potassium Plas [facility] Called/Read Back Holly Boyisela [facility] Credentials RN [facility] Called By radha [facility] Blood 10/25/2024 1:00 PM CDT 10/25/2024 6:16 PM CDT Jose M West MD LAB BLOOD ORDERABLES Final Res ult Performing Organization Address City/Va Hospital/ZIP Co de Phone Number [facility] [place] [address] * Differential, auto (10/25/2024 1:00 PM CDT) Neutrophil abs 2.75 1.50 - 6.50 K/cumm Imm gran abs 0.01 0.00 - 0.10 K/cumm [facility] Lymphocyte abs 1.18 0.80 - 3.30 K/cumm [facility] Monocyte abs 0.47 0.20 - 0.80 K/cumm [facility] Eosinophil abs 0.17 0.00 - 0.50 K/cumm [facility] Basophil abs 0.06 0.00 - 0.10 K/cumm [facility] Neutrophil pct 59.3 % [facility] Comment: Interpretive Data Percent cell count reference ranges are not reported, since discordance with absolute values may lead to misinterpretation of CBC data. Current Interpretive Data was last revised on 2017. Imm gran pct 0.2 % [facility] Comment: Interpretive Data Percent cell count reference ranges are not reported, since discordance with absolute values may lead to misinterpretation of CBC data. Current Interpretive Data was last revised on 2017. Lymphocyte pct 25.4 % [facility] Comment: Interpretive Data Percent cell count reference ranges are not reported, since discordance with absolute values may lead to misinterpretation of CBC data. Current Interpretive Data was last revised on 2017. Monocyte pct 10.1 % [facility] Comment: Interpretive Data Percent cell count reference ranges are not reported, since discordance with absolute values may lead to misinterpretation of CBC data. Current Interpretive Data was last revised on 2017. Eosinophil pct 3.7 % [facility] Comment: Interpretive Data Percent cell count reference ranges are not reported, since discordance with absolute values may lead to misinterpretation of CBC data. Current Interpretive Data was last revised on 2017. Basophil pct 1.3 % [facility] Comment: Interpretive Data Percent cell count reference ranges are not reported, since discordance with absolute values may lead to misinterpretation of CBC data. Current Interpretive Data was last revised on 2017. Blood 10/25/2024 1:00 PM CDT 10/25/2024 6:13 PM CDT us Jose M West MD LAB BLOOD ORDERABLES Final Res ult [facility] [place] [address] * (ABNORMAL) CRP (acute phase) (10/25/2024 1:00 PM CDT) CRP 18.7(H) <=10.0 mg/L Blood 10/25/2024 1:00 PM CDT 10/25/2024 6:13 PM CDT Jose M West MD LAB BLOOD ORDERABLES Final Res ult Performing Organization Address [facility]/Va Hospital/[facility] Co de Phone Number [facility] [place] [address] * (ABNORMAL) Erythrocyte sedimentation rate (10/25/2024 1:00 PM CDT) [facility] Erythrocyte sedimentation rate 93(H) 1 - 20 mm/hr Blood 10/25/2024 1:00 PM CDT 10/25/2024 6:13 PM CDT Jose M West MD LAB BLOOD ORDERABLES Final Res ult Performing Organization Address [facility] de Phone Number [facility] [place] [address] * (ABNORMAL) CBC with auto differential (10/25/2024 1:00 PM CDT) [facility] WBC 4.64 3.80 - 9.90 K/cumm Hgb 9.2(L) 13.0 - 17.5 g/dL [facility] Hct 31.0(L) 38.9 - 50.3 % [facility] Plt 449(H) 150 - 400 K/cumm [facility] MPV 8.8(L) 9.1 - 12.3 fL [facility] RBC 3.38(L) 4.30 - 5.80 M/cumm [facility] MCV 91.7 81.3 - 96.4 fL [facility] MCH 27.2 27.1 - 33.3 pg [facility] MCHC 29.7(L) 32.3 - 35.7 g/dL [facility] RDW CV 24.3(H) 11.1 - 14.9 % [facility] RDW SD 84.3(H) 35.7 - 48.1 fL [facility] NRBC abs 0.00 0.00 - 0.01 K/cumm [facility] Blood 10/25/2024 1:00 PM CDT 10/25/2024 6:13 PM CDT us Jose M West MD LAB BLOOD ORDERABLES Final Res ult [facility] [place] [address] * (ABNORMAL) Comprehensive metabolic panel (10/25/2024 1:00 PM CDT) Pathologist [facility] Sodium 139 135 - 145 mmol/L Potassium, pl 2.4(C) 3.3 - 4.9 mmol/L [facility] Chloride 100 97 - 110 mmol/L [facility] CO2 29 22 - 32 mmol/L [facility] Anion gap 10 2 - 15 mmol/L [facility] BUN 8 6 - 25 mg/dL [facility] Creatinine 0.89 0.80 - 1.30 mg/dL [facility] Glucose 145 70 - 199 mg/dL [facility] Comment: Interpretive Data Fasting glucose >/= [...] 2022. Calcium 8.2(L) 8.5 - 10.3 mg/dL [facility] Bilirubin, total 0.2 0.1 - 1.2 mg/dL [facility] Protein, pl 6.7 6.5 - 8.5 g/dL [facility] Albumin 2.8(L) 3.5 - 5.0 g/dL [facility] Alk phos 103 40 - 130 Units/L [facility] ALT 8 7 - 55 Units/L [facility] AST 25 10 - 50 Units/L [facility] Blood 10/25/2024 1:00 PM CDT 10/25/2024 6:13 PM CDT Jose M West MD LAB BLOOD ORDERABLES Final Res ult [facility] [place] [address] documented in this encounter Visit Diagnoses Not on filedocumented in this encounter Additional Health Concerns Active Problems Noted Date Diagnosed Date Initial Follow-Up Appointment 10/17/2024 Problems In Home Environment 10/17/2024 documented as of this encounter Care Teams Clinical Transplant Coordinator Relationship Specialty Start Date End Date Willi Wyatt DO [address] [place], [place] [id number] PCP - General Internal Medicine 10/06/24 Jose M West MD [address] IM INFECTIOUS DISEASE, [address] [place] [address] PCP - Home Infusion Attending Infectious Diseases 10/19/24 Sangeeta Wang, RON [address] [facility] ([facility] Mailstop [phone] [place] [address] SHOP Outpatient Accounting Machine Mechanic 10/17/24 Vishal Marie, [facility] Pharmacist Pharmacy 10/18/24 documented as of this encounter
--- OUTSIDE RECORDS SUMMARY | 2024-10-25 21:29 | XMS_ITS | Encounter Summary ---
Author Organization [facility] Address [address] [place] [address] Phone Care Team Providers Care Hose Mender Name Role Phone Willi Wyatt DO Primary Care Provider [phone] Sangeeta Wang [facility] Unavailable [phone] Vishal Marie [facility] Unavailable Unavail able Jose M West MD Unavailable [phone] Encounter Details Date Type Department Care Team (Late st Contact Info) Description 10/25/2024 Documentation [facility] Infectious Diseases [address] [place] [address] [address] [place] [address] Bar Porter MD [address] [facility] [address] [place] [address] Social History Tobacco Use Types Packs/Day Years [...] often do you attend chur ch or samaritan services? More than 4 times per year 10/17/2024 Do you belong to any clubs o r organizations such as nondenominational groups, unions, fraternal or athletic groups, or [...] No 10/17/2024 Housing Stability Vital Sign Answer Anikt e Recorded In the last 12 months, was t here a time when you were not able to pay the mortgage or rent on time? No 10/17/2024 In the past 12 months, how m any times have you moved where you were living? 0 10/17/2024 At any time in the past 12 m [facility], were you homeless or living in a [...] - 10/25/2024 8:14 PM CDT Infectious Diseases Bilingual Office Assistant Note Received call from pharmacist Carrie Ruiz of [facility] Home Infusion for critical potassium level of [...] support and son is staying with him, [facility] confirmed to be involved. documented as of this encounter Visit Diagnoses Not on filedocumented in this encounter Additional Health Concerns Active Problems Noted Date Diagnosed Date Initial Follow-Up Appointment 10/17/2024 Problems In Home Environment 10/17/2024 documented as of this encounter Care Teams Hose Mender Relationship Specialty Start Date End Date Willi Wyatt DO [address] [place] [address] PCP - General Internal Medicine 10/06/24 Jose M West MD [address] IM INFECTIOUS DISEASE, [address] [place] [address] PCP - Home Infusion Attending Infectious Diseases 10/19/24 Sangeeta Wang, DIRECTOR OF MEDICAL EDUCATION [address] [facility] ([facility] Mailstop [phone] [place] [address] SHOP Outpatient Business Development Assistant 10/17/24 Vishal Marie [facility] Pharmacist Pharmacy 10/18/24 documented as of this encounter
[2024-10-25] MEDS: POTASSIUM CHLORIDE 20 MEQ ER TABLET 40 MEQ PO (21:46)
== END 2024-10-25 21:59 | disposition home or self-care (01) ==
PROVIDERS: Emergency Provider Emergency Medicine; PCP Internal Medicine
DX: E87.6 Hypokalemia (principal); Z87.891 Personal history of nicotine dependence
CPT/HCPCS: 36415; 80053; 83735; 85025; 99283; A9270